=== PATIENT | female | born 1990 | race Caucasian/White ===

== ENCOUNTER 2023-06-22 21:06 | Outpatient (REF) | payer OTHER, SELFPAY ==
[2023-06-25 17:08] LABS: Age Gdln ACOG Testing Note (.); HPV Aptima Negative (Negative); IGP, Aptima HPV, rfx 16/18,45 Note (.)
== END 2023-06-22 21:07 | disposition home or self-care (01) ==
LOC: LAB 21:06
PROVIDERS: Visit Provider Obstetrics & Gynecology
DX: Z01.419 Encounter for gynecological examination (general) (routine) without abnormal findings (principal)
CPT/HCPCS: 87624; G0145

== ENCOUNTER 2023-08-24 10:52 | Outpatient (OUT) | payer OTHER, SELFPAY ==
--- OUTSIDE RECORDS SUMMARY | 2023-08-24 11:14 | XMS_ITS | CCD ---
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 By: #### L IPID, CMP, CHC CBC, TSH3 #### [address] ALP [Catalytic activity/Vol] 36 U/L Normal 32-92 [facility] Comment on above: Performed By: #### L IPID, CMP, CHC CBC, TSH3 #### [facility] [address] AST [Catalytic activity/Vol] 22 U/L Normal 10-42 [facility] Comment on above: Performed By: #### L IPID, CMP, CHC CBC, TSH3 #### [facility] [address] Bilirubin [Mass/Vol] 0.3 mg/dL Normal 0.3-1.2 [facility] Comment on above: Performed By: #### L IPID, CMP, CHC CBC, TSH3 #### [address] Calcium [Mass/Vol] 9.4 mg/dL Normal 8.2-10.2 [facility] Comment on above: Performed By: #### L IPID, CMP, CHC CBC, TSH3 #### [address] Chloride [Moles/Vol] 103 mmol/L Normal 95-114 [facility] Comment on above: Performed By: #### L IPID, CMP, CHC CBC, TSH3 #### [address] CO2 [Moles/Vol] 23.0 mmol/L Normal 22.0-30.0 [facility] Comment on above: Performed By: #### L IPID, CMP, CHC CBC, TSH3 #### [facility] [address] [place] [address] [place] Creatinine [Mass/Vol] 0.61 mg/dL Normal 0.44-1.03 [facility] Comment on above: Performed By: #### L IPID, CMP, CHC CBC, TSH3 #### [place] [address] [place] Globulin (S) [Mass/Vol] 2.7 g/dL Normal [facility] Comment on above: Performed By: #### L IPID, CMP, CHC CBC, TSH3 #### [place] [address] [place] Glucose [Mass/Vol] 108 mg/dL High 70-100 [facility] Comment on above: Result Comment: Gore om Glucose Reference Range is dependent on time and content of last meal. Glucose of more than 200 mg/dL in a nonstressed, ambulatory subject supports the diagnosis of Diabetes Mellitus. ADA recommended reference range Performed By: #### L IPID, CMP, CHC CBC, TSH3 #### [facility] [address] ADA recommended refe rence range Random Glucose Reference Range is dependent on time and content of last meal. Glucose of more than 200 mg/dL in a nonstressed, ambulatory subject supports the diagnosis of Diabetes Mellitus. Potassium [Moles/Vol] 4.1 mmol/L Normal 3.5-5.1 [facility] Comment on above: Performed By: #### L IPID, CMP, CHC CBC, TSH3 #### [facility] [address] Protein [Mass/Vol] 6.9 g/dL Normal 6.1-7.9 [facility] Comment on above: Performed By: #### L IPID, CMP, CHC CBC, TSH3 #### [facility] [address] Sodium [Moles/Vol] 136 mmol/L Normal 136-146 [facility] Comment on above: Performed By: #### L IPID, CMP, CHC CBC, TSH3 #### [facility] [address] [place] [address] [place] Urea nitrogen [Mass/Vol] 12 mg/dL Normal 9-23 [facility] Comment on above: Performed By: #### L IPID, CMP, CHC CBC, TSH3 #### [facility] [address] Estimated glomerular filtrat ion rate (GFR) non- AmericanOrdered By: Danis Tubbs on 01-05-2022 GFR/1.73 sq M.predicted among non-blacks MDRD (S/P/Bld) [Vol rate/Area] > 60 mL/Min [facility] Lipid PanelOrdered By: Dansi Tubbs on 01-05-2022 Cholesterol [Mass/Vol] 210 mg/dL High 140-200 [facility] Comment on above: Result Comment: Chol less than 200 mg/dl low risk Chol 201-239 mg/dl borderline risk Chol 240 mg/dl and greater high risk Performed By: #### L IPID, CMP, CHC CBC, TSH3 #### [facility] [address] Chol less than 200 m g/dl low risk Chol 201-239 mg/dl borderline risk Chol 240 mg/dl and greater high risk Cholesterol in HDL [Mass/Vol] 37 mg/dL Normal 35-85 [facility] Comment on above: Result Comment: HDL CHOL ATP-III CLASSIFICATION Cardiovascular Risk HDL > or equal to 60 mg/dL LOW HDL < 40 mg/dL HIGH Performed By: #### L IPID, CMP, CHC CBC, TSH3 #### [facility] [address] HDL CHOL ATP-III CLA SSIFICATION Cardiovascular Risk HDL > or equal to 60 mg/dL LOW HDL < 40 mg/dL HIGH Cholesterol.total/Cho lesterol in HDL [Mass ratio] 5.7 {ratio} Normal <5.0 [facility] Comment on above: Performed By: #### L IPID, CMP, CHC CBC, TSH3 #### [facility] [address] Lipid Panelon 01-05-2022 LDL Cholesterol,Calculate d 140 mg/dL High 0-100 [facility] Comment on above: Result Comment: LDL ATP III CLASSIFICATION LDL less than 100 mg/dL Optimal LDL 100-129 mg/dL Near or above optimal LDL 130-159 mg/dL Borderline high LDL 160-189 mg/dL High LDL greater than 189 mg/dL Very high Performed By: #### L IPID, CMP, CHC CBC, TSH3 #### [facility] [address] Triglyceride w/Reflex 165 mg/dL High 35-149 [facility] Comment on above: Result Comment: TRIG ATP III CLASSIFICATION TRIG less than 150 mg/dL Normal TRIG 150-199 mg/dL Borderline high TRIG 200-500 mg/dL High TRIG greater than 500 mg/dL Very high Standard traceable to the Center for Disease Conrtrol and Prevention (CDC) test method. Performed By: #### L IPID, CMP, CHC CBC, TSH3 #### [facility] [address] VLDL CHOLESTEROL 33 mg/dL Normal [facility] Comment on above: Performed By: #### L IPID, CMP, CHC CBC, TSH3 #### [facility] [address] MCHC Auto (RBC) [Mass/Vol]Or dered By: Danis Tubbs on 01-05-2022 MCHC (RBC) [Mass/Vol] 34.0 g/dL 32.0-35.0 [facility] No Panel InformationOrdered By: Danis Tubbs on 01-05-2022 Estimated GFR () > 60 mL/Min [facility] Comment on above: GFR estimated refere nce range: According to KDOQI guidelines, <60 ml/min/1.73m2 is sufficient to diagnose a patient with chronic kidney disease. Pharmacy Creatinine Clearance (Chem N/A [facility] Serum or plasma alanine woodruff otransferase measurement without P-5'-P (enzymatic activiOrdered By: Danis Tubbs on 01-05-2022 ALT No additional P-5'-P [Catalytic activity/Vol] 32 U/L 10-60 [facility] Thyroid Stimulating HormoneO rdered By: Danis Tubbs on 01-05-2022 TSH Qn 3.27 m[IU]/L Normal 0.45-5.33 [facility] Comment on above: Result Comment: PERF ORMED BY: [place] [address] PATHOLOGIST [employer] KARLOS WALKER M.D. Performed By: #### L IPID, CMP, CHC CBC, TSH3 #### [facility] [address] Triglyceride [Mass/volume] i n Serum or PlasmaOrdered By: Danis Tubbs on 01-05-2022 Triglyceride [Mass/Vol] 165 mg/dL 35-149 [facility] Comment on above: TRIG ATP III CLASSIF ICATION TRIG less than 150 mg/dL Normal TRIG 150-199 mg/dL Borderline high TRIG 200-500 mg/dL High TRIG greater than 500 mg/dL Very high Standard traceable to the Center for Disease Conrtrol and Prevention (CDC) test method. 25(OH)D3 [facility] 25-hydroxyvitamin D3 [Mass/Vol] 16.7 ng/mL Low 31.0-80.0 [facility] Comment on above: Order Comment: Speci men Type: BLOOD SPECIMEN Ordering Facility: [facility] Address: [address] [place] [address] Result Comment: Clas sification of 25 [place] Vitamin D status: Deficiency/Insufficiency: < or = 30 ng/ml. Sufficiency/Optimal Levels: 31-80 ng/mL Toxicity: > 100 ng/mL. Test performed by chemiluminescent immunoassay. Performed By: #### 1 989-3 #### [facility] CLIA [id number] [address] [place], [place] [address] STATES OF [facility] CBC W Auto Differential pane l (Bld)on 12-01-2021 Basophils (Bld) [#/Vol] 0.07 10*3/uL Normal <0.11 [facility] Comment on above: Order Comment: Speci men Type: BLOOD SPECIMEN Ordering Facility: [facility] Address: [address] [place] [address] Performed By: #### 5 7021-8 #### [facility] CLIA [id number] [place] Basophils/100 WBC (Bld) 1.3 % Normal [facility] Comment on above: Order Comment: Speci men Type: BLOOD SPECIMEN Ordering Facility: [facility] Address: [address] [place] [address] Performed By: #### 5 7021-8 #### [facility] CLIA [id number] [address] [place] Differential cell count method Nom (Bld) Auto Normal [facility] Comment on above: Order Comment: Speci men Type: BLOOD SPECIMEN Ordering Facility: [facility] Address: [address] [address] Performed By: #### 5 7021-8 #### [facility] [place] [id number] [address] [place] [address] [place] Eosinophils (Bld) [#/Vol] 0.10 10*3/uL Normal <0.46 [facility] Comment on above: Order Comment: Speci men Type: BLOOD SPECIMEN Ordering Facility: [facility] Address: [address] [place] [address] Performed By: #### 5 7021-8 #### [facility] [place] [id number] [address] [place] [address] [place] Eosinophils/100 WBC (Bld) 1.9 % Normal [facility] Comment on above: Order Comment: Speci men Type: BLOOD SPECIMEN Ordering Facility: [facility] Address: [address] [place] [address] Performed By: #### 5 7021-8 #### [facility] IA [id number] [address] [place] [address] [place] Erythrocyte distribution width (RBC) [Ratio] 12.3 % Normal 11.5-15.0 [facility] Comment on above: Order Comment: Speci men Type: BLOOD SPECIMEN Ordering Facility: [facility] Address: [address] [place] [address] Performed By: #### 5 7021-8 #### [facility] [place] [id number] [place] Hematocrit (Bld) [Volume fraction] 44.0 % Normal 36.0-46.0 [facility] Comment on above: Order Comment: Speci men Type: BLOOD SPECIMEN Ordering Facility: [facility] Address: [address] [place], [place] [phone] Performed By: #### 5 7021-8 #### [facility] IA [id number] [place] [address] [place] Hemoglobin (Bld) [Mass/Vol] 14.3 g/dL Normal 11.5-15.5 [facility] Comment on above: Order Comment: Speci men Type: BLOOD SPECIMEN Ordering Facility: [facility] Address: [address] [place] [address] Performed By: #### 5 7021-8 #### [facility] CLIA [id number] [address] [place] [address] [place] IMMATURE GRAN % 0.6 % Normal [facility] Comment on above: Order Comment: Speci men Type: BLOOD SPECIMEN Ordering Facility: [facility] Address: [address] [place] [address] Performed By: #### 5 7021-8 #### [facility] IA [id number] [place] IMMATURE GRAN ABS 0.03 k/uL Normal <0.10 [facility] Comment on above: Order Comment: Speci men Type: BLOOD SPECIMEN Ordering Facility: [facility] Address: [address] [place] [address] Performed By: #### 5 7021-8 #### [facility] IA [id number] [address] [place] [address] [place] Lymphocytes (Bld) [#/Vol] 2.30 10*3/uL Normal 1.00-4.00 [facility] Comment on above: Order Comment: Speci men Type: BLOOD SPECIMEN Ordering Facility: [facility] Address: [address] [place] [address] Performed By: #### 5 7021-8 #### [facility] IA [id number] [place] Lymphocytes/100 WBC (Bld) 43.3 % Normal [facility] Comment on above: Order Comment: Speci men Type: BLOOD SPECIMEN Ordering Facility: [facility] Address: [address] [place] [address] Performed By: #### 5 7021-8 #### [facility] IA [id number] [place] [address] [place] MCH (RBC) [Entitic mass] 29.9 pg Normal 26.0-34.0 [facility] Comment on above: Order Comment: Speci men Type: BLOOD SPECIMEN Ordering Facility: [facility] Address: [address] [place] [address] Performed By: #### 5 7021-8 #### [facility] IA [id number] [address] [place] [address] [place] MCHC (RBC) [Mass/Vol] 32.5 g/dL Normal 30.5-36.0 [facility] Comment on above: Order Comment: Speci men Type: BLOOD SPECIMEN Ordering Facility: [facility] Address: [address] [place] [address] Performed By: #### 5 7021-8 #### [facility] IA [id number] [address] [place] [address] [place] MCV (RBC) [Entitic vol] 91.9 fL Normal 80.0-100.0 [facility] Comment on above: Order Comment: Speci men Type: BLOOD SPECIMEN Ordering Facility: [facility] Address: [address] [place] [address] Performed By: #### 5 7021-8 #### [facility] IA [id number] [address] [place] [address] [place] Monocytes (Bld) [#/Vol] 0.29 10*3/uL Normal <0.87 [facility] Comment on above: Order Comment: Speci men Type: BLOOD SPECIMEN Ordering Facility: [facility] Address: [address] [place] [address] Performed By: #### 5 7021-8 #### [facility] IA [id number] [address] [place] [address] [place] Monocytes/100 WBC (Bld) 5.5 % Normal [facility] Comment on above: Order Comment: Speci men Type: BLOOD SPECIMEN Ordering Facility: [facility] Address: [address] Performed By: #### 5 7021-8 #### [facility] IA [id number] [address] [place] [address] [place] Neutrophils (Bld) [#/Vol] 2.52 10*3/uL Normal 1.45-7.50 [facility] Comment on above: Order Comment: Speci men Type: BLOOD SPECIMEN Ordering Facility: [facility] Address: [address] [place], [place] [address] Performed By: #### 5 7021-8 #### [facility] IA [id number] [address] [place] [address] [place] Neutrophils/100 WBC (Bld) 47.4 % Normal [facility] Comment on above: Order Comment: Speci men Type: BLOOD SPECIMEN Ordering Facility: [facility] Address: [address] [place], [place] [address] Performed By: #### 5 7021-8 #### [facility] IA [id number] [address] [place] [address] [place] Nucleated RBC (Bld) [#/Vol] 10*3/uL Normal <0.01 [facility] Comment on above: Order Comment: Speci men Type: BLOOD SPECIMEN Ordering Facility: [facility] Address: [address] [place], [place] [phone] Performed By: #### 5 7021-8 #### [facility] IA [id number] [address] [place] [address] [place] Nucleated RBC/100 WBC (Bld) [Ratio] 0.0 /100 WBC Normal [facility] Comment on above: Order Comment: Speci men Type: BLOOD SPECIMEN Ordering Facility: [facility] Address: [address] [place], [place] [address] Performed By: #### 5 7021-8 #### [facility] IA [id number] [address] [place] [address] [place] Platelet mean volume (Bld) [Entitic vol] 11.2 fL Normal 9.0-12.7 [facility] Comment on above: Order Comment: Speci men Type: BLOOD SPECIMEN Ordering Facility: [facility] Address: [address] [place], [place] [address] Performed By: #### 5 7021-8 #### [facility] CLIA [id number] [address] [place] [address] [place] Platelets (Bld) [#/Vol] 168 10*3/uL Normal 150-400 [facility] Comment on above: Order Comment: Speci men Type: BLOOD SPECIMEN Ordering Facility: [facility] Address: [address] [place], [place] [phone] Result Comment: Resu lts checked and verified. No clot detected Performed By: #### 5 7021-8 #### [facility] CLIA [id number] [address] [place] [address] [place] RBC (Bld) [#/Vol] 4.79 10*6/uL Normal 3.90-5.20 [facility] Comment on above: Order Comment: Speci men Type: BLOOD SPECIMEN Ordering Facility: [facility] Address: [address] [place], [place] [address] Performed By: #### 5 7021-8 #### [facility] IA [id number] [address] [place] [address] [place] WBC (Bld) [#/Vol] 5.31 10*3/uL Normal 3.70-11.00 [facility] Comment on above: Order Comment: Speci men Type: BLOOD SPECIMEN Ordering Facility: [facility] Address: [address] [place], [place] [address] Performed By: #### 5 7021-8 #### [facility] CLIA [id number] [address] [place] [address] [place] [facility] [place] Comprehensive metabolic 2000 panelon 12-01-2021 Albumin [Mass/Vol] 4.5 g/dL Normal 3.9-4.9 [facility] Comment on above: Order Comment: Speci men Type: BLOOD SPECIMEN Ordering Facility: [facility] Address: [address] Performed By: #### 2 4323-8, 3016-3, 19592-3, 84799-7 #### [facility] CLIA [id number] [address] [place] [address] [place] ALP [Catalytic activity/Vol] 46 U/L Normal 34-123 [facility] Comment on above: Order Comment: Speci men Type: BLOOD SPECIMEN Ordering Facility: [facility] Address: [address] [place], [place] [address] Performed By: #### 2 4323-8, 3016-3, 01505-8, 02358-3 #### [facility] CLIA [id number] [address] [place] [address] [place] ALT [Catalytic activity/Vol] 21 U/L Normal 7-38 [facility] Comment on above: Order Comment: Speci men Type: BLOOD SPECIMEN Ordering Facility: [facility] Address: [address] [place], [place] [address] Performed By: #### 2 4323-8, 3016-3, 80905-9, 99675-3 #### [facility] CLIA [id number] [address] [place], [place] [address] [place] [address] [place] Anion gap [Moles/Vol] 10 mmol/L Normal 9-18 [facility] Comment on above: Order Comment: Speci men Type: BLOOD SPECIMEN Ordering Facility: [facility] Address: [address] [place], [place] [address] Performed By: #### 2 4323-8, 3016-3, 52697-1, 09798-7 #### [facility] CLIA [id number] [address] [place] [address] [place] AST [Catalytic activity/Vol] 18 U/L Normal 13-35 [facility] Comment on above: Order Comment: Speci men Type: BLOOD SPECIMEN Ordering Facility: [facility] Address: [address] [place], [place] [phone] Performed By: #### 2 4323-8, 3016-3, 17622-0, 37988-1 #### [facility] CLIA [id number] [address] [place] [address] [place] Bilirubin [Mass/Vol] 0.3 mg/dL Normal 0.2-1.3 [facility] Comment on above: Order Comment: Speci men Type: BLOOD SPECIMEN Ordering Facility: [facility] Address: [address] [place], [place] [address] Performed By: #### 2 4323-8, 3016-3, 67773-2, 57207-5 #### [facility] CLIA [id number] [address] [place] [address] [place] Calcium [Mass/Vol] 9.2 mg/dL Normal 8.5-10.2 [facility] Comment on above: Order Comment: Speci men Type: BLOOD SPECIMEN Ordering Facility: [facility] Address: [address] [place] [address] Performed By: #### 2 4323-8, 3016-3, 06941-5, 67518-8 #### [facility] CLIA [id number] [address] [place] [address] [place] Chloride [Moles/Vol] 104 mmol/L Normal 97-105 [facility] Comment on above: Order Comment: Speci men Type: BLOOD SPECIMEN Ordering Facility: [facility] Address: [address] [place], [place] [address] Performed By: #### 2 4323-8, 3016-3, 44446-7, 58719-3 #### [facility] CLIA [id number] [address] [place] [address] [place] CO2 [Moles/Vol] 23 mmol/L Normal 22-30 [facility] ital Comment on above: Order Comment: Speci men Type: BLOOD SPECIMEN Ordering Facility: [facility] Address: [address] [place], [place] [address] Performed By: #### 2 4323-8, 3016-3, 53788-6, 86301-1 #### [facility] CLIA [id number] [address] [place] [address] [place] Creatinine [Mass/Vol] 0.57 mg/dL Low 0.58-0.96 [facility] Comment on above: Order Comment: Rangel zamora Type: BLOOD SPECIMEN Ordering Facility: [facility] Address: [address] [phone] Performed By: #### 2 4323-8, 3016-3, 17936-6, 39436-7 #### [facility] CLIA [id number] [address] [place] [address] [place] ESTIMATED GLOMERULAR FILTRATION RATE 124 mL/min/1.73m??? Normal >=60 [facility] Comment on above: Order Comment: Rangel zamora Type: BLOOD SPECIMEN Ordering Facility: [facility] Address: [address] [place] [address] Result Comment: Aleksandra mated Glomerular Filtration Rate (eGFR) is calculated using the 2020 CKD-EPI creatinine equation. This equation utilizes serum creatinine, sex, and age as parameters. The creatinine assay has traceable calibration to isotope dilution-mass spectrometry. Refer to KDIGO guidelines for clinical interpretation. In patients with unstable renal function, e.g. those with acute kidney injury, the eGFR may not accurately reflect actual GFR. Performed By: #### 2 4323-8, 3016-3, 11616-3, 62610-2 #### [facility] CLIA [id number] [facility] [place] [address] [place] Glucose [Mass/Vol] 112 mg/dL High 74-99 [facility] Comment on above: Order Comment: Rangel zamora Type: BLOOD SPECIMEN Ordering Facility: [facility] Address: [address] [id number] Result Comment: The [place] [employer] (ADA) provides guidance for cutoff values for fasting glucose and random glucose. The ADA defines fasting as no caloric intake for at least 8 hours. Fasting plasma glucose results between 100 to 125 mg/dL indicate increased risk for diabetes (prediabetes). Fasting plasma glucose results greater than or equal to 126 mg/dL meet the criteria for diagnosis of diabetes. In the absence of unequivocal hyperglycemia, results should be confirmed by repeat testing. In a patient with classic symptoms of hyperglycemia or hyperglycemic crisis, random plasma glucose results greater than or equal to 200 mg/dL meet the criteria for diagnosis of diabetes. Reference: Standards of Medical Care in Diabetes 2016, [place] [employer]. Diabetes Care. 2016.39(Suppl 1). Performed By: #### 2 4323-8, 3016-3, 01335-2, 99502-8 #### [facility] CLIA [id number] [address] [place] [address] [place] Potassium [Moles/Vol] 4.5 mmol/L Normal 3.7-5.1 [facility] Comment on above: Order Comment: Rangel zamora Type: BLOOD SPECIMEN Ordering Facility: [facility] Address: [address] [place] [address] Performed By: #### 2 4323-8, 6-3, 92871-4, 10476-7 #### [facility] CLIA [id number] [address] [place] [address] [place] Protein [Mass/Vol] 7.4 g/dL Normal 6.3-8.0 [facility] Comment on above: Order Comment: Rangel zamora Type: BLOOD SPECIMEN Ordering Facility: [facility] Address: [address] [place] [address] Performed By: #### 2 4323-8, 3016-3, 55326-5, 04021-7 #### [facility] CLIA [id number] [address] [place] [address] [place] Sodium [Moles/Vol] 137 mmol/L Normal 136-144 [facility] Comment on above: Order Comment: Rangel zamora Type: BLOOD SPECIMEN Ordering Facility: [facility] Address: [address] [place] [address] Performed By: #### 2 4323-8, 3016-3, 90892-7, 55071-2 #### [facility] CLIA [id number] [address] [place] [address] [place] Urea nitrogen [Mass/Vol] 12 mg/dL Normal 7-21 [facility] Comment on above: Order Comment: Speci men Type: BLOOD SPECIMEN Ordering Facility: [facility] Address: [address] [place] [address] Performed By: #### 2 4323-8, 3016-3, 59876-5, 15270-2 #### [facility] CLIA [id number] [address] [place] [address] [place] Ferritin SerPl-mCncon 2021 Ferritin [Mass/Vol] 177.6 ng/mL Normal 14.7-205.1 [facility] Comment on above: Order Comment: Rangel [facility] Type: BLOOD SPECIMEN Ordering Facility: [facility] Address: [address] [place] [address] Performed By: #### 2 4323-8, 3016-3, 04501-5, 57830-7 #### [facility] CLIA [id number] [address] [place] [address] [place] Folate SerPl-mCncon 12-02-19 Folate [Mass/Vol] 9.3 ng/mL Normal >4.7 [facility] Comment on above: Order Comment: Speci men Type: BLOOD SPECIMEN Ordering Facility: [facility] Address: [address] [place] [address] Performed By: #### 2 4323-8, 3016-3, 70374-3, 98353-9 #### [facility] CLIA [id number] [address] [place] [address] [place] HbA1c (Bld)on 12-01-2021 Average glucose Estimated from glycated hemoglobin (Bld) [Mass/Vol] 108 mg/dL Normal [facility] Comment on above: Order Comment: Speci men Type: BLOOD SPECIMEN Ordering Facility: [facility] Address: [address] [place] [address] Result Comment: eAG: (Estimated average glucose) is a calculated value from HgbA1c and is access service representative of the average blood glucose level in the last 2-3 month period. Performed By: #### 2 4323-8, 3016-3, 85869-0, 77420-3 #### [facility] CLIA [id number] [address] [place], [place] [id number] [place] [address] [place] HbA1c (Bld) [Mass fraction] 5.4 % Normal 4.3-5.6 [facility] Comment on above: Order Comment: Rangel zamora Type: BLOOD SPECIMEN Ordering Facility: [facility] Address: [address] [place] [address] Result Comment: Amer ican Diabetes Association guidelines indicate that patients with HgbA1c in the range 5.7-6.4% are at increased risk for development of diabetes, and intervention by lifestyle modification may be beneficial. HgbA1c greater or equal to 6.5% is considered diagnostic of diabetes. Performed By: #### 2 4323-8, 3016-3, 46588-1, 21161-2 #### [facility] CLIA [id number] [address] [place], [place] [id number] [place] [address] [place] Iron and Iron binding capaci [facility] 12-01-2021 Iron [Mass/Vol] 69 ug/dL Normal 41-186 [facility] Comment on above: Order Comment: Rangel zamora Type: BLOOD SPECIMEN Ordering Facility: [facility] Address: [address] [place] [address] Performed By: #### 2 4323-8, 3016-3, 66371-8, 27315-3 #### [facility] CLIA [id number] [address] [place], [place] [id number] [place] [address] [place] Iron binding capacity [Mass/Vol] 296 ug/dL Normal 232-386 [facility] Comment on above: Order Comment: Rangel zamora Type: BLOOD SPECIMEN Ordering Facility: [facility] Address: [address] [place] [address] Performed By: #### 2 4323-8, 3016-3, 75488-2, 90067-5 #### [facility] CLIA [id number] [address] [place] [address] [employer] [facility] Iron/TIBC [Molar ratio] 23.3 % Normal 15.0-57.0 [facility] Comment on above: Order Comment: Speci men Type: BLOOD SPECIMEN Ordering Facility: [facility] Address: [address] [place] [address] Performed By: #### 2 4323-8, 3016-3, 52750-5, 00852-7 #### [facility] CLIA [id number] [address] [facility] [address] [employer] [facility] Lipid 1996 panelon 2 Cholesterol [Mass/Vol] 229 mg/dL High <200 [facility] Comment on above: Order Comment: Speci men Type: BLOOD SPECIMEN Ordering Facility: [facility] Address: [address] [place] [address] Result Comment: <200 mg/dL, Desirable 200-239 mg/dL, Borderline high >239 mg/dL, High Performed By: #### 2 4323-8, 3016-3, 67844-7, 25240-6 #### [facility] CLIA [id number] [address] [place] [address] [facility] Cholesterol in HDL [Mass/Vol] 39 mg/dL Low >39 [facility] Comment on above: Order Comment: Speci men Type: BLOOD SPECIMEN Ordering Facility: [facility] Address: [address] [place] [address] Result Comment: 40-5 9 mg/dL, Acceptable >59 mg/dL, High: Negative risk factor for coronary heart disease <40 mg/dL, Low: Positive risk factor for coronary heart disease Performed By: #### 2 4323-8, 3016-3, 56429-2, 09789-8 #### [facility] CLIA [id number] [address] [place], [place] [id number] [place] [address] Cholesterol in LDL [Mass/Vol] 155 mg/dL High <100 [facility] Comment on above: Order Comment: Speci men Type: BLOOD SPECIMEN Ordering Facility: [facility] Address: [address] [place] [address] Result Comment: <100 mg/dL, Optimal 100-129 mg/dL, Near optimal/above optimal 130-159 mg/dL, Borderline high 160-189 mg/dL, High >189 mg/dL, Very high Secondary prevention optimal LDL Cholesterol levels are recommended to be < 70 mg/dL Performed By: #### 2 4323-8, 3016-3, 39014-9, 76729-2 #### [facility] CLIA [id number] [address] [facility] [address] [place] Cholesterol in LDL/Cholesterol in HDL [Mass ratio] 3.97 {ratio} High <2.54 [facility] Comment on above: Order Comment: Specgloria men Type: BLOOD SPECIMEN Ordering Facility: [facility] Address: [address] [place] [address] Result Comment: Refe rence: 1. National Cholesterol Education Program ATP III Guideline At-A-Glance Quick Desk Reference: National Heart, Lung, and Blood [place]. National Institutes of Health. 2001: NIH Publication No. 01-3305. 2. An International Atherosclerosis Society position paper: global recommendations for the management of dyslipidemia: executive summary, Atherosclerosis. 2014: 232(2):410-413. Performed By: #### 2 4323-8, 3016-3, 22907-1, 69562-9 #### [facility] CLIA [id number] [facility] [address] [place] [facility] Cholesterol in VLDL [Mass/Vol] 35 mg/dL High <30 [facility] Comment on above: Order Comment: Rangel zamora Type: BLOOD SPECIMEN Ordering Facility: [facility] Address: [address] [id number] Performed By: #### 2 4323-8, 3016-3, 47985-5, 71253-6 #### [facility] CLIA [id number] [address] [facility] [place] [address] [place] Cholesterol non HDL [Mass/Vol] 190 mg/dL High <130 [facility] Comment on above: Order Comment: Rangel men Type: BLOOD SPECIMEN Ordering Facility: [facility] Address: [address] Result Comment: <130 mg/dL, Optimal 130-159 mg/dL, Near optimal/above optimal 160-189 mg/dL, Borderline high 190-219 mg/dL, High >219 mg/dL, Very high Secondary prevention optimal non HDL Cholesterol levels are recommended to be <100 mg/dL Performed By: #### 2 4323-8, 3016-3, 76415-1, 73487-7 #### [facility] CLIA [id number] [address] [place], [place] [address] [place] [address] [place] Cholesterol.total/Cho lesterol in HDL [Mass ratio] 5.87 {ratio} High <5.10 [facility] Comment on above: Order Comment: Speci men Type: BLOOD SPECIMEN Ordering Facility: [facility] Address: [address] [place], [place] [address] Performed By: #### 2 4323-8, 3016-3, 03633-9, 91502-8 #### [facility] CLIA [id number] [address] FASTING TIME 12 hrs Normal [facility] Comment on above: Order Comment: Speci men Type: BLOOD SPECIMEN Ordering Facility: [facility] Address: [address] [place], [place] [address] Performed By: #### 2 4323-8, 3016-3, 71302-1, 18437-6 #### [facility] CLIA [id number] [address] [place], [place] [address] [place] [address] [place] Triglyceride [Mass/Vol] 173 mg/dL High <150 [facility] Comment on above: Order Comment: Speci men Type: BLOOD SPECIMEN Ordering Facility: [facility] Address: [address] [id number] Result Comment: <150 mg/dL, Normal 150-199 mg/dL, Borderline high 200-499 mg/dL, High >499 mg/dL, Very high Performed By: #### 2 4323-8, 3016-3, 96428-9, 50087-8 #### [facility] CLIA [id number] [address] [place] [address] [place] PTH-Intact SerPl-mCncon - Parathyrin.intact [Mass/Vol] 42 pg/mL Normal 15-65 [facility] Comment on above: Order Comment: Rangel zamora Type: BLOOD SPECIMEN Ordering Facility: [facility] Address: [address] [place], [place] [id number] Performed By: #### 2 731-8 #### [facility] CLIA [id number] [address] [place] [address] [place] [address] [place] TSH SerPl-aCncon 12-01-2021 TSH Qn 3.170 m[IU]/L Normal 0.270-4.200 [facility] Comment on above: Order Comment: Rangel zamora Type: BLOOD SPECIMEN Ordering Facility: [facility] Address: [address] [place] [address] Result Comment: If t he patient is , TSH reference range varies by gestational period: First Trimester (weeks 9-12): 0.180-2.990 mIU/L Second Trimester: 0.110-3.980 mIU/L Third Trimester: 0.480-4.710 mIU/L Franco aCllejas et al. A Practical Approach for the Verifications and Determination of Site- and Trimester-Specific Reference Intervals for Thyroid Function tests in . Thyroid, 2019:29:3:412-420. Varun Blevins, et al. 2017 Guidelines of the [place] Thyroid Association for the Diagnosis and Management of Thyroid Disease during and the . Thyroid, 2017:27:3:315-389. Performed By: #### 2 4323-8, 3016-3, 60776-5, 73039-3 #### [facility] CLIA [id number] [address] [place] [address] [place] VITAMIN B1 (THIAMINE), WHOLE BLOODon 12-01-2021 Thiamine (Bld) [Moles/Vol] 134.6 nmol/L Normal 84.3-213.3 [facility] Comment on above: Order Comment: Rangel zamora Type: BLOOD SPECIMEN Ordering Facility: [facility] Address: [address] [place], [place] [id number] Result Comment: This assay measures the concentration of thiamine diphosphate (TDP), the primary active form of vitamin B1. Approximately 90 percent of vitamin B1 present in whole blood is TDP. Thiamine and thiamine monophosphate, which comprise the remaining 10 percent, are not measured. This test was developed and its performance characteristics determined by [facility] [place] ([facility]). It has not been cleared or approved by the FDA. [facility] is regulated under CLIA as qualified to perform high-complexity testing. This test is used for clinical purposes. It should not be regarded as investigational or for research. Performed By: #### B 1WB #### [facility] CLIA [id number] [address] [place], [place] [address] [place] [address] [place] Vit B12 [facility] 022 Cobalamin (Vitamin B12) [Mass/Vol] 304 pg/mL Normal 232-1,245 [facility] Comment on above: Order Comment: Speci men Type: BLOOD SPECIMEN Ordering Facility: [facility] Address: [address] [place], [place] [id number] Performed By: #### 2 4323-8, 3016-3, 07547-1, 65969-4 #### [facility] CLIA [id number] [address] [facility]. [address] [place] No Panel Informationon 11-28 [facility] US ABD RIGHT UPPER QUADRANTo n 11-28-2021 US ABD RIGHT UPPER QUADRANT * * *Final Report* * * DATE OF EXAM: Nov 28 2021 1:51PM [facility] 1032 - US ABD RIGHT UPPER QUADRANT / PROCEDURE REASON: multiple diagnoses * * * * Physician Interpretation * * * * EXAMINATION: RIGHT UPPER QUADRANT ULTRASOUND CLINICAL HISTORY: Preoperative testing TECHNIQUE: Sonography of the right upper quadrant was performed. Images were obtained and stored in a permanent archive. MQ: URUQ_2 COMPARISON: None. RESULT: Pancreas: Normal sonographic appearance. Portions obscured: Head and tail Liver: Echotexture: Normal, homogeneous. Echogenicity: Increased Surface contour: Smooth Lesions: Limited for solid hepatic mass Biliary: No intrahepatic biliary duct dilation. CBD: 0.4 cm at the hilum. Gallbladder: Normal caliber -Contents: No cholelithiasis -Wall: Normal -Other: No pericholecystic fluid. Right Kidney: No hydronephrosis. Ascites: None. IMPRESSION: Diffuse hepatic steatosis. No biliary ductal dilatation. The gallbladder is unremarkable. Press Offbearer: [facility] Transcribe Date/Time: Nov 28 2021 2:20P Dictated by : CJ QUINTERO MD This examination was interpreted and the report reviewed and electronically signed by: CJ QUINTERO MD on Nov 28 2021 2:21PM EST [id number] [facility] XR CHEST 2V FRONTAL/LATon XR CHEST 2V FRONTAL/LAT * * *Final Report* * * DATE OF EXAM: Nov 28 2021 1:00PM VHX [id number] - XR CHEST 2V FRONTAL/LAT / PROCEDURE REASON: multiple diagnoses * * * * Physician Interpretation * * * * EXAMINATION: CHEST RADIOGRAPH (2 VIEW FRONTAL and LATERAL) CLINICAL HISTORY: Class 3 severe obesity with body mass index (BMI) of 50.0 to 59.9 in adult, unspecified obesity type, unspecified whether serious comorbidity present (HCC) Class 3 severe obesity with body mass index (BMI) of 50.0 to 59.9 in adult, unspecified obesity type, unspecified whether serious comorbidity present (HCC) MQ: XC2_6 EXAM DATE/TIME: 11/28/2021 1:00 PM COMPARISON: No relevant prior studies available. RESULT: Lines, tubes, and devices: None. Lungs and pleura: No consolidation. No lung mass. No pleural effusion. No pneumothorax. Cardiomediastinal silhouette: Normal cardiomediastinal silhouette. Bones and soft tissues: Unremarkable. IMPRESSION: No acute radiographic abnormality. Press Offbearer: [employer] Transcribe Date/Time: Nov 28 2021 1:32P Dictated by : KOMAL VINES MD This examination was interpreted and the report reviewed and electronically signed by: KOMAL VINES MD on Nov 28 2021 1:33PM EST [id number] [facility] ANES POSTPROC EVALon 022 ANES POSTPROC EVAL HNO ID: [id number] Author: Fannie Tanner MD Service: Anesthesiology Author Type: Physician Type: Anesthesia Postprocedure Evaluation Filed: 11/26/2021 3:12 PM Note Text: POST ANESTHESIA EVALUATION NOTE : 1990 Procedure Summary Date: 11/26/21 Room / Location: Procedures Anesthesia Start: 1315 Anesthesia Stop: 1328 Procedure: EGD DIAGNOSTIC Diagnosis: Pre-op exam (Heartburn) Scheduled Providers: Mulugeta Salmon MD; Fannie Tanner MD; Maria Alejandra Callejas APRN.BUSINESS TAXES SPECIALIST Responsible Provider: Fannie Tanner MD Anesthesia Type: MAC ASA Status: 3 Anesthesia Type: MAC Last Vitals Vitals Value Taken Time BP 127/84 11/26/21 1351 Temp 36.1 ?C (97 ?F) 11/26/21 1330 Pulse 76 11/26/21 1350 Resp 15 11/26/21 1350 SpO2 96 % 11/26/21 1354 Vitals shown include unvalidated device data. Post Anesthesia Patient Status Patient Evaluation: PACU. PACU/ICU Patient Condition: stable. Anticipated Disposition: phase 2 then home. Neurological Status: aware and responsive. Pulmonary Status: breathing comfortably on room air Airway Control: returned to baseline unsupported. Cardiovascular Status: stable. Pain Management: clinically adequate - multimodal analgesia pain management approach Postoperative Hydration: acceptable. Intraoperative Events: no significant anesthesia events Recommendation: continue current plan of care. Anesthesia Observations No Documentation SIGNATURE: Fannie Tanner MD PATIENT NAME: Funmilayo Conway DATE: November 26, 2021 TIME: 3:12 PM CSN: [id number] [facility] ANES PRE-OPon 11-26-2021 ANES PRE-OP HNO ID: [id number] Author: Fannie Tanner MD Service: Anesthesiology Author Type: Physician Type: Anesthesia Preprocedure Evaluation Filed: 11/26/2021 12:27 PM Note Text: ANESTHESIOLOGY DAY OF SURGERY NOTE : 1990 Procedure Information Date/Time: 11/26/21 1245 Scheduled providers: Mulugeta Salmon MD; Fannie Tanner MD; Maria Alejandra Callejas APRN.BUSINESS TAXES SPECIALIST Procedure: EGD DIAGNOSTIC Location: Procedures Estimated body mass index is 53.01 kg/m? as calculated from the following: Height as of 11/12/21: 167.6 cm (5' 6 ). Weight as of 11/12/21: 149 kg (328 lb 6.4 oz). Most recent hematocrit and potassium results: No results found for this basename: HCT,HEMATOCRIT,K,POT ASSIUM Relevant Problems -RENAL (+) Fatty liver Other (+) Anxiety and depression (+) Morbidly obese (HCC) I - PHYSICAL EVALUATION AIRWAY Patient intubated: No. Tracheostomy tube not present Mallampati: III. TM distance: >3 FB. Neck ROM: full ROM without neurological symptoms. Mouth opening: adequate. Short neck: no. Thick neck: no DENTAL Dental findings: teeth intact and missing tooth/teeth. Additional exam findings: yes. CARDIOVASCULAR Rhythm: regular Rate: normal PULMONARY Breath sounds clear to auscultation. II - ANESTHESIA PLAN ASA Score: 3 Anesthetic Plan: MAC NPO Status: adequate Monitoring plan: Standard ASA. Postoperative analgesic plan: parenteral or oral opioids and multimodal analgesia. Informed Consent Anesthetic risks, benefits, alternatives, personnel and consent discussed: yes. Patient / Responsible Constitution Party agrees to proceed: yes Patient / Surrogate agrees to blood products: blood products not planned DNR status not reviewed with patient and/or family prior to surgery. Significant changes in the patient condition since the History and Physical, not otherwise documented in primary service progress note: no. Potential Anesthesia issues that may suggest increased risk of complications or contraindication to planned procedure: none. No vitals data found for the desired time range. Outpatient Medications as of 11/26/2021 Medication Sig - FLUoxetine HCl (PROZAC) 40 mg capsule Take 40 mg by mouth once daily. No current facility-administere d medications on file as of 11/26/2021. I have interviewed and examined the patient. I have reviewed the medical record and/or the pre-anesthesia evaluation, pertinent labs, and test results. This contains updated information obtained within 48 hours of Surgery/Procedure. SIGNATURE: Fannie Tanner MD PATIENT NAME: Funmilayo Conway DATE: November 26, 2021 TIME: 12:27 PM CSN: [id number] Normal [facility] EGD DIAGNOSTICon 11-26-2021 [facility] Upper GI endoscopyon 022 Upper GI endoscopy [facility] Gastrointestinal Endoscopy Patient Name: Funmilayo Conway Procedure Date: 11/26/2021 1:06 PM Date of : 1990 Admit Type: Outpatient Age: 31 Room: AV PROCEDURE A Gender: Female Note Status: Finalized Attending MD: Mulugeta Salmon MD Procedure: Upper GI endoscopy Indications: Heartburn Providers: Mulugeta Salmon MD Patient Profile: This is a 31 year old female. Refer to note in patient chart for documentation of history and physical. Patient has symptoms of chronic heartburn. Referring Physician: Mulugeta Salmon MD (Referring MD) Medicines: Monitored Anesthesia Care Complications: No immediate complications. Requesting Provider: Procedure: Pre-Anesthesia Assessment: - Prior to the procedure, a History and Physical was performed, and patient medications and allergies were reviewed. The patient is competent. The risks and benefits of the procedure and the sedation options and risks were discussed with the patient. All questions were answered and informed consent was obtained. Patient identification and proposed procedure were verified by the physician, the nurse and the technical sales director in the pre-procedure area in the endoscopy suite. Mental Status Examination: alert and oriented. Airway Examination: normal oropharyngeal airway and neck mobility. Respiratory Examination: clear to auscultation. CV Examination: normal. Prophylactic Antibiotics: The patient does not require prophylactic antibiotics. Prior Anticoagulants: The patient has taken no previous anticoagulant or antiplatelet agents. ASA Grade Assessment: III - A patient with severe systemic disease. After reviewing the risks and benefits, the patient was deemed in satisfactory condition to undergo the procedure. The anesthesia plan was to use monitored anesthesia care (MAC). Immediately prior to administration of medications, the patient was re-assessed for adequacy to receive sedatives. The heart rate, respiratory rate, oxygen saturations, blood pressure, adequacy of pulmonary ventilation, and response to care were monitored throughout the procedure. The physical status of the patient was re-assessed after the procedure. After obtaining informed consent, the endoscope was passed under direct vision. Throughout the procedure, the patient's blood pressure, pulse, and oxygen saturations were monitored continuously. The Endoscope was introduced through the mouth, and advanced to the second part of duodenum. The upper GI endoscopy was accomplished without difficulty. The patient tolerated the procedure well. Moderate Sedation: MAC anesthesia was administered by the anesthesia team. Total Procedure Duration: 0 hours 2 minutes 59 seconds Findings: The gastroesophageal flap valve was visualized endoscopically and classified as Hill Grade II (fold present, opens with respiration). LA Grade A (one or more mucosal breaks less than 5 mm, not extending between tops of 2 mucosal folds) esophagitis with no bleeding was found 37 to 39 cm from the incisors. The stomach was normal. The examined duodenum was normal. Impression: - Gastroesophageal flap valve classified as Hill Grade II (fold present, opens with respiration). - LA Grade B reflux esophagitis. - Normal stomach. - Normal examined duodenum. - No specimens collected. Recommendation: - Discharge patient to home. - Resume previous diet. - Continue present medications. - Return to Bariatric clinic as previously scheduled. Procedure Code(s): --- Professional --- 61777, Esophagogastroduoden oscopy, flexible, transoral; diagnostic, including collection of specimen(s) by brushing or washing, when performed (separate procedure) Diagnosis Code(s): --- Professional --- K21.0, Gastro-esophageal reflux disease with esophagitis R12, Heartburn CPT copyright 2019 [employer]. All rights reserved. The codes documented in this report are preliminary and upon game trapper review may be revised to meet current compliance requirements. Attending Participation: I personally performed the entire procedure. Scope In: 1:21:30 PM Scope Out: 1:24:29 PM MD Mulugeta Tony MD 11/26/2021 1:27:19 PM This report has been signed electronically by Mulugeta Salmon MD Number of Addenda: 0 Note Initiated On: 11/26/2021 1:06 PM Estimated Blood Loss: Estimated blood loss: none. Normal [facility] HISTORY PHYSICALon 2 HISTORY PHYSICAL HNO ID: [id number] Author: Maria T Lares APRN.OMER Service: ? Author Type: Nurse Practitioner Type: HANDP Filed: 11/12/2021 3:58 PM Note Text: HISTORY AND PHYSICAL EXAMINATION SERVICE DATE: 11/12/2021 SERVICE TIME: 3:26 PM PRIMARY CARE PHYSICIAN: No Pcp This is a virtual visit using [employer] video visit. It required patient-provider interaction for the medical decision making as documented below. REASON FOR VISIT: Funmilayo Conway is a 31 year old female who is scheduled for EGD at the request of Dr. Mulugeta Salmon for consultation. My final recommendation will be communicated back to the requesting physician by way of shared medical record or letter. Subjective The patient has the following: ACTIVE PROBLEM LIST Morbidly Obese (Hcc) Fatty Liver Anxiety and Depression COVID-19 Immunization Status COVID-19 VACCINE (Series Information) Completed 03/20/2021 Outside Immunization: SARS-CoV-2 (COVID-19) Ad26 vaccine 08/24/2020 Outside Immunization: SARS-CoV-2 (COVID-19) Ad26 vaccine 08/03/2020 Outside Immunization: SARS-CoV-2 (COVID-19) Ad26 vaccine CHIEF COMPLAINT: Pre-Op Exam HPI: 31 year old female presents with morbid obesity. Patient is preparing for bariatric surgery and is scheduled for EGD. She did have an EGD at 18 yo looking for Celiac's disease, she states this was negative. She has occasional heartburn usually related to spicy foods. She denies a diagnosis of GERD. She also denies any abdominal pain. REVIEW OF SYSTEMS: General: No weight loss, malaise or fevers. Neurological: No history of TIA's, stroke, CONTRACTS ATTORNEY tumor, impaired sensorium, hemiplegia, paraplegia or quadraplegia. No neurological symptoms or problems. Respiratory: No history of current cough or dyspnea, or pneumonia in the past 6 weeks. No history of respiratory/pulmonar y symptoms or problems. Cardiovascular: No history of HTN requiring medication, no history of angina, CHF, [place], cardiac surgery or stents. Denies rest pain, gangrene or revascularization/am putation for PVD. No history of cardiovascular symptoms or problems. GI: Positive for: liver disease (Fatty liver) Negative for: dysphagia, diverticulitis, GI bleed <30 days, hepatitis, irritable bowel syndrome, inflammatory bowel disease, nausea and vomiting. : No history of dysuria, frequency or incontinence, stones or chronic kidney disease. No difficulty urinating, nocturia > 1 time per night or hematuria. MILITARY SOURCE OPERATIONS SPECIALIST: Negative for abnormal vaginal bleeding, abnormal vaginal discharge. Endocrine: No history of diabetes. Has not taken steroids within the past 30 days. No history of endocrinological symptoms or problems. Hematology: No history of bleeding or clotting disorder. Patient is not taking anti-coagulation or platelet medications. No history of hematological symptoms or problems. Oncology: No history of CA metastasis, chemo within 30 days, or radiotherapy within 90 days. No history of oncological symptoms or problems. Psych: Positive for: anxiety and depression (Stable on Rx, follows with PCP). Musculoskeletal: Negative for joint pain or swelling, back pain or muscle pain. Skin: Negative for lesions, rash and itching. PAST MEDICAL HISTORY Diagnosis Date - Anxiety and depression - Fatty liver PAST SURGICAL HISTORY Procedure Laterality Date - COLONOSCOPY - CYST EXCISION Left 2001 - EGD 2008 - EXTRACTION ERUPTED TOOTH wisdom teeth - RHINOPLASTY Deviated septum - TONSILLECTOMY HX x 2 FAMILY HISTORY Problem Relation Age of Onset - No Known Problems Mother - No Known Problems Father Social History Tobacco Use - Smoking status: Never Smoker - Smokeless tobacco: Never Used Vaping Use - Vaping Use: Never used Substance Use Topics - Alcohol use: Yes Comment: Not weekly - Drug use: Never Prior to Admission medications as of 11/12/21 1536 Medication Sig Last Dose Taking FLUoxetine HCl (PROZAC) 40 mg capsule Take 40 mg by mouth once daily. Taking Yes No medication comments found. ALLERGIES Allergen Reactions - Animal Dander Cough, Itching, Rash, Other: See Comments - Dust Other: See Comments - Mildew Other: See Comments - Mold Cough, Other: See Comments Objective PHYSICAL EXAM: (if completed, exam performed via video enabled technology) General: alert and oriented and morbidly obese. Pertinent negatives noted - not distressed. Skin: normal color, no rash or lesions. HEENT: pupils equal round. Cardiovascular: Patient able to palpate radial pulse, denies skipped beats or pauses.. Respiratory: Breathing unlabored. Chest rise equal. No audible wheezing.. Abdomen: Not examined. Extremities: No deformity noted. Neurological: Normal cognition and gait. PAIN ASSESSMENT: VITALS: Ht 5' 6 [Patient reported[ (1.68m) Wt 328 lb 6.4 oz (149.0kg) LMP 12/20/2020 BMI 53.03 kg/(m2). Diagnostic tests reviewed for today's visit: Lab Value Units Date High Low HB No results with (more content not included)... Normal [facility] COVID Quick Testingon 2021 Result Negative [employer] Other Quick Strepon 10-27-2021 S. pyogenes Org specific cx Ql (Throat) Negative [employer] Other Quick Strep [employer] Other Consent for Procedure/Surger yon 08-05-2021 Consent for Procedure/Surgery [id number] #1.00CD:127 Normal [facility] Ambulatory Visit Summaryon 0 08-04-2021 Ambulatory Visit Summary FUNMILAYO CONWAY :1990 Visit Date:08/04/2021 Ambulatory Visit Instructions Your Care Team Attending Physician - EDY JOYCE, Elmira Infante Primary Care Physician - Carson JOYCE, Khoi Referring Physician - Khoi Byrd MD This Is Your Medications List Contact prescribing physician if questions or concerns fluoxetine (FLUoxetine 40 mg Cap) Procedures Performed section, Deviated nasal septum, Extraction of wisdom tooth, Ganglion cyst of right foot, Tonsillectomy and adenoidectomy. Discharge Vitals Temperature (Temporal Artery) 36.2 ?C Heart Rate (Peripheral) 92 Respiratory Rate 16 Blood Pressure 126/84 Height 165.1 cm Height 165.1 cm Weight 154.8 kg Weight 154.8 kg BMI 56.79 Medications What How Much When Instructions Unchanged fluoxetine (FLUoxetine 40 mg Cap) 1 Capsules By Mouth Every day Contact prescribing physician if questions or concerns Medications and Immunizations Administered Not Given influenza virus vaccine, inactivated, Patient Refuses Allergies Animal Dander (Sneezing) Dust (Sneezing) Mildew (Sneezing) Mold (Sneezing) Problems Ongoing - Any problem that you are currently receiving treatment for. Allergic rhinitis Anxiety BMI 50.0-59.9, adult Depression Historical - Any problem that you are no longer receiving treatment for. Normal [facility] Physician Referralon 022 Physician Referral [id number] #1.00CD:127 Normal [facility] Physician Referral [id number] #1.00CD:127 Normal [facility]-08 SARS-CoV-2 (COVID-19) RNA JONH+probe Ql (Unsp spec) Not detected Normal NOT DETECTED [facility] Comment on above: Result Comment: This test is not yet approved or cleared by the [place] FDA. When there are no FDA-approved or cleared tests available, and other criteria are met, FDA can make tests available under an emergency access mechanism called an Emergency Use Authorization (EUA). The EUA for this test is supported by the President [place] of Health and Human Service's (HHS's) declaration that circumstances exist to justify the emergency use of in vitro diagnostics for the detection and/or diagnosis of the virus that causes COVID-19. This EUA will remain in effect (meaning this test can be used) for the duration of the COVID-19 declaration justifying emergency of IVDs, unless it is terminated or revoked by FDA (after which the test may no longer be used). When diagnostic testing is negative, the possibility of a false negative should be considered in the context of a patient's recent exposures and the presence of clinical signs and symptoms consistent with SARS-CoV-2. Performed By: #### [facility] #### [facility] [address] [place] [address] Dr. Kerri Roberto Covid-19 PCR ([facility])on SARS-CoV-2 (COVID-19) RNA JONH+probe Ql (Unsp spec) Not detected Normal NOT DETECTED [facility] Comment on above: Result Comment: This test is not yet approved or cleared by the [place] FDA. When there are no FDA-approved or cleared tests available, and other criteria are met, FDA can make tests available under an emergency access mechanism called an Emergency Use Authorization (EUA). The EUA for this test is supported by the [place] of Health and Human Service's (HHS's) declaration that circumstances exist to justify the emergency use of in vitro diagnostics for the detection and/or diagnosis of the virus that causes COVID-19. This EUA will remain in effect (meaning this test can be used) for the duration of the COVID-19 declaration justifying emergency of IVDs, unless it is terminated or revoked by FDA (after which the test may no longer be used). When diagnostic testing is negative, the possibility of a false negative should be considered in the context of a patient's recent exposures and the presence of clinical signs and symptoms consistent with SARS-CoV-2. Performed By: #### C V[facility] #### [facility] [address] [place] [address] Dr. Kerri Roberto Coding Summary.on 12-26-2020 Coding Summary. [id number] Gh0bWw+PGhlYWQ+PE1FV UXzD26toKXynB5CF9pJJ U4YWUGPSYEUWX2QCE4dr PW6QQumN8FmfsXm DedwbYDgOD91PEu2SDN6 cAqyLLgdfE3fbHMwE4e8 WoRnZD33pD00WCauLWBd DrJ9FeDiiesfwUEs Q4xiMoMxbFTzHrz+PHRh YmxlIHdpZHRoPScxMDAl UsRxrDrfHI4sIz9kFLGa LWNvbGxhcHNlOiBj u2ldWLVyUKttGC1ooJai Q5CazIF7NHQmx0x5Mh34 dHI+XXJbEVQ2mOwtNYrw r955HpNzp7gbIWJ7 jNCmQFqiRQC8B54pb6V2 BLYdZOVfMJX5xXQ5sV0t yFopprzoC6MzkWBnNdQ0 INE1aBWkmX7wcXvt iekrvE1kIbx+D37GVU0R FUYNUT4NGsj9F5DtCvwz dHI+IK90UPEvUE00vSSa yLKkp1wzmRm2PsDx BIYvZIV3tJiwYPlem0Va EVSrS10wnHNnr7I4MLQe cXpobBLaUxLwyCC6oI1l EPewuohpf0pwhipi Csgpa0wjno23kZ16T69j OMibELNvRIM3BSEyLNKt oAmnft7maG6iXz2+IDxj r1slp5bklAk9XuZz BENulzHajSxvZJI2v1Hq Py69B7AnoJksj0GaQee1 jb98dZTfo1U2hXA9ZOyu GNPcrZ3jBWuuLoC1 VRAyRaFejE80fOAsSVjo Lc0edDrjjZnaOC6bEUHf zyutRVTiiG9eOVJxmHLl bMpmOQ6gJOChvkdg r681AtPqBUS6VEEhyEAl G3OxqU0lVyKuUPRbCIPs K7SxhDIoUQvsP214VIpc PpA0LLJsmwGoB7Bc AYOpxGvqIhP1s1S2Ia5O v6LddagnOZU0KKilEJB2 SrEjZiYxLnE4K2YsTol5 KPKrxXaaXQ8dP0Fl HSOkeflwyfpqoYZ3CPWh ORJtjF24vQTzQVbyPc4v c9K9v157MQMcBMQieV68 Zl8kaDreKGRfzGCT qN1ejwyua1gwxngzMjBm HWYoZJj2YFf3YIKxhJxr MwBjPOZ2ZmG9OHF3tNMs nU4gwTnhyvyfhX6o Oyc+K32gxJ3pMCH2TZB5 gscxGACixyGfLX74JG54 F2XkZbhaaFHsdJE+PGRp ohIfqHvvOD4gHfGd t1cda3PlISpdN4MrETUa PIxfZpm6ERInIUP0tSS6 sB6oMGRvVMbhh3D5wTX3 T2OxguOegi2kb7kl VKAjIShhA52seZXmo2Z4 OGCadAE9LQSzbVyaEoDh cY16Eqs+WECjzIteb8Wj Lnwmr5ecx7ynbTg0 IjMwJSIgdmFsaWduPSJ0 g0WaIj42P76eIQyaGNGj TRCiHKByOPIusPmbcf5v iH1cYe2+PGNvbCB3 bPA7wU0zAAJrDrB8GThe Y055YbYtaTHlKlruf4cv p1fsbDw6CrKwMGUbgfVc nVncSTN3y5ZrYr41 E80jXFiaDCPyZDTzFZBu VTIjxOvabi9khN8cKu4+ PL5ry7lfql26pC68bYB+ EWIfBBC0rCjhRSrp ORXrcU6wATjwYyE9MXUk OtXgcQ43tHSqYCniFq8n pVourVcyWQ9jEYGkuyfa a576RvIdt1ufFWUu lXSnXNmaRKG2R34vj4H1 JEIiFEEaKCO8gOA5aU4h bGlnbjogbGVmdDsgdmVy eUirWHcfACbwX318 IHRvcDsnPlBhdGllbnQg DkHdHMu7U1QcKoj5FOKg pIkbQT4ffLKeJQzdRf7x fRsdkKyoAL4aUTWn emhau921VjAmg3awPZXe rFSjDBnjNTT6I85za8R2 BUCqDTVkBJI6nDS5pT0g bGlnbjogbGVmdDsg vfFwoBwbBItuMWoiC048 IHRvcDsnPkJpcnRoIERh mWS6VS99SV62hTExk0X3 xCX0W7PlALXcrkvu lzjhbSP0CIQxYWPrwF54 Cn5fwKkdPw1rSPKzRGL0 FDDssCBrD4MgnT6gHdGb VNQsSEZuZ9WizBRx MGvqR317FGexRrE8RVEg hrNeU1UxYXIiiAqyLwJ7 o6P1Lw3FS0G6IO12PB95 xBYsb9B4xPF1X4Qf LVCyvucggadawOJ4IPHh BGAzbW37Sh9mtQolNl9g PXNqLIT3PORihNCcW7Cl xZ3yEzOpJIDnXDIg R1NncDUgACxoD177TLft QdJ4VSHdhnIiC9JdBZLo qHquOqJ3r2W2Km2ULZk2 DY52TU23zJTtr2S0 yUA0E3GbZDDpoxnadpah sAJ4XEPvRAXgeS19Hq5w sEatQk8eRQQtXKQ4BCJc jIGkI9GolG9nFaWh AYXsSWDcE8FfeXYcBLec M928NQtdFbF9TVNtpmAh O0AhVHGgaHizYvK9g6Q4 Xv1QOFMvMJ87JVV1 cJU3JR83ZY61W8KbIrno dGFibGU+PHRhYmxlIHdp ZHRoPScxMDAlJyBzdHls VB5vQk1eEAZxZISn eJwchTYrZbPjf4wvRPXs WZzsKI8qmLcbU3ZajOG3 SRUkn7l9Fa48H78tN6Vu dXA+FVHocNO4hHJ8 qP1tYhJzMsF8KQjyC923 WvRhjOEfIzzwq3lnc3eg lVc2KzY7RUMlfzKrnXfq TQF1e0AiPt50F70r IHdpZHRoPSIxNSUiIHZh dUgmrh2dbN5jAv5+PGNv rTS6dXF4pT5nCxJyNmZ6 XEfkX686WrMatUSx Ptzif6yiq2maeDo8CsFa NIPssiDypUlwHVS7u6Nt Hx16H3CjhQidn6UlZkw5 ed05tWQzw9T0mIG3 P8TsFRFlrcdjrASoyXfg HE7jVDMlkhobKIFuqH9p VGXzV3t7XqCeDuP7QPob F2NccxI9LJLidVVv XOfiAQF4C29qv7O4XRWl VYFcRSX3oBJ1wD7yxEcq bjogbGVmdDsgdmVydGlj CSchAEifX656ICEc xLnlRJBryV6dDHChhOWr sLcxPK6wTDRghxduKlbJ EsGVHgejNfEXKRBCIK82 DB62lHNkg4D7lNP3 X2GiNLRjytagapgvhVG2 IVGdKNAwcR83qLFtRQry Sw9is8Y5a986DXCgHQQd mE57Mh5aeYzlFHHl lTIUcW1xyvpvm4lonvwp NtEeUAVyGVm2SVw0UIBd cKiaGrHxBEI9BgP8HGY3 hTVtqG1oqAhroiyt lO1eSfh+MTEvMTQvMTk4 OTwvdGQ+GZCcHSR0hDzk WSfyCJXbyR0cCYMcA0z4 GpPhUkO7GQguM7Rk BRRqldtdOa98kJ8hWpYr SmA3RKzwW6ChvrF3XVYu kOPzIVlkYJD7D65uf8Y6 SQLxASYwGIX4kNR7 xX1xsAnfwrsnsFKxoYpj ciSgkLwhVHjhINkpZ655 IHRvcDsnPjMxIFllYXJz QC65QB11nSHbu0F1 mBQ0T6GcTOWjfwpotorr vLH6ILJqLVJazO44sGCm BTxhLi7oj3E5k486BTUk BXTiaK70Io4ijXrn QAVsvINZxB0bsahfh8ct szxuZdJdZBGhBOa4AGw6 FCTjbVakFiHiNOI5UyF8 ZWH8gHXtaS4kqUgz yzlawG8yKip+RmVtYWxl ZR88FW00xXIrv0F4oZX3 P1MsANZiofjodhgwgEW5 LCXtJPMuqU19vHQv RDotQo1py6Z3n249QEPi QAOncY99Hd5jhCkgURZt sQCSnC2eozhgd5hlpxht IhMtMQWrNDl0QZs7 ICJmsXqjTeIlZUL0VxX8 HCK5vBKwhK2qpTmyxwzn tZ3pHoz+K2CyCIB3MVPd q839C6FwCdunwXH+ UD47UUXfNA05eZUidJKt t8fusEi7OlIxJTBaAKC7 uDsqGRvtz1IwANUkR66g yDRjf1G5PQJqaGgn uKOmIkEsdZY1uY5mIWtp ptzmj3kfzxubEsstl3oq jv93lZ15X59lNDlwQKVk PSIzMCUiIHZhbGln iy1jmZ6gTj9+PGNvbCB3 qTC9dC6wNzHjTsR3BDti K607IcHwcBQzLkspx8wr q1jyyNf3EiWvUMLr jeCboHeaXLC1u5JaUz88 Y30bFNdyQGOgZAHoUVTo XRLqmZdase1imD2wFe4+ KJ7fm9oehf29uU02 dHI+MNBzNRQ3iRnmYHdm HBPpnS1sFQsyFnI8GQNf WpLniZ54qQCnVJfnXt5v lMxakKnjRO6iAISe xnlny707ZaGim4ftAYTo zHJyWPwpTZZ0Q92rc0U2 VCFzOSFhUOL1qCH7dZ2p bGlnbjogbGVmdDsg nvIzjCoaUOyfKMjpA182 NKGcaMdsOxSmuQAtI4qb vxTSJH9nDxytuJO+PHRk AHE2hVxcITxfDGBh nN2wOLZpH9s1UpDpBmI6 QVlfL2SdyaT1KUMdmBLw FDXtaFFMbK6xaqtll3fd cjogIzAwMDAwMDt0 KHb8WYZsxOfnXiPvEDM4 CbU1GPY0aHDdjQ4qcVte kfqwfS1nCsj+RklOOjwv dGQ+NHCcBCR5jLhm NVzyWWFvqK2sTRRhO5f8 OiHpDfH4MEezH5RukrV8 FCAvhCZcBDIufCJNlL4w yrzqw0buurwkIkXb OMPqKHp5YWn9TRFmiRos LvTdJNG5JjC7EJW4rXFl rB8qeRgkdcqgkI7jDti+ TVJOOjwvdGQ+PHRk HJY5dLegCEzlRQOpiB8w PMGjX2m9IxLrDxK5BJfj H4VoshD4ZKWswKGsOTEl xQCVhH0dghfdp2wp ncwiKoHfCTPkBCy1AUw3 EZSkwRvhWuKiJYY0EpR8 MDL6wGTxaQ7hsHbytgyr pX5mCsd+CSU1XXG7 EY46RN45Z6CrYwqrnFRg bGU+PHRhYmxlIHdpZHRo QGogCAQmKkCvnHtbKF8n Uv7yAECvAQOodPyt cHNl (more content not included)... Normal [facility] Coding Summary.on 12-24-2020 Coding Summary. [id number] Gh0bWw+PGhlYWQ+PE1FV JIwP87fwEYryG4NV7bFS C9AROZFHROABH0QQE0vm YA6ZNvcO9OhuxQx WdrfqNMoAR63NHr1KLE2 cKipNQxekD8ozNTsB7j5 JdVuPB23gX21MNnwKRPh OiV4YzCdliilnRYj S1jnBzLkgMJbTng+PHRh YmxlIHdpZHRoPScxMDAl GxXkvRfbPN2aYm8gCUMb LWNvbGxhcHNlOiBj o8miPMFgVNrxQE9pxMtd I8RfwLH3YPFcz8z2Sg89 dHI+FMKgXMZ5gVxlQGkq h130KzYzx6euNNL7 qAXqTDcrTUK2W85hu0T6 EZEkXVFjPGJ5jYY6cP7n fXiudevrU8TynQNuMjI4 DYB7wXIgrQ4iuLmd xwenlK2vQif+Z12YLC3K DAXHEH6ZPnk8D3WmPmby dHI+WM49YBVrKC35zIDe fSXtt8ligSq2ZvCn LTJcVIT5hSrzSYgoi5Hb MZZqB96aeORaa8C6HTZk lXsqlOTnEsUkeMP3gD7r YMxfxlryq2gtfgft Ojnda8crnx82lG75M54h MEkyVOMnZJU6QJPbXKLb zLonxe3dfH4mFv3+IDxj v5khr6vjbTr1KnRl UMWfbzAqlXfaSQG3b0Ph Jv67S8CoyGwml5JmNsl5 qq39oSDmq4E6oVT0PIlv OCGohS6xIPguXhJ5 BMQvVwYshN03nYHrRNgf Ba3uoGnfvCqeAH1aRIZz vrzkKMYcfS4kJKPtkGKj jOnlYB9zAPIesxru x805PtDuFVE2FYHbyDNt C5JcoC4zQmPaXSDeTJKw V5LnaNQvOQvcK761IBvv OmK1ESWujfNdH8Ij ZBTyoBlsGbE5f8M9Fi8R i7MqisjsEEF4EPdvWWR1 UfXzPfFkPwA8W7KzRwr4 CNYbaIoyXG9dM0Cl PVOznwaxeybjkMU1GLNi TBBwnJ29yUEdZBahSt6d f7R2z618QETrCXPuhJ48 Hv2gkIztJCJeiZKL jD9tkblov4acgekpFtMq DMEdCOz2RDb3GZRhsIlb QhDzBNW0YsG2VGB8uQFf bQ8rrDbhluqkbP2g Oyc+V40woZ5pBHN8HAV3 bjuhDPCqxuOsHZ01VH33 Z3IcWsunyOEjtUD+PGRp wrQoaDohJP5vCzBd w4lem8QeVZtlU3KaCUSk XZvtVzn2HTBzMPU0lPC0 eU5lAYHmOHlui3A7mDO9 T4RfzuKtjk7md0qi DEQkPQcpH31piIZra1P3 JERceFY2TDKldNvnUhJy vW01Zeg+RVPshHqiz5Cn Lvtgq5mup2gsyIu5 IjMwJSIgdmFsaWduPSJ0 a8SbBk13A79xPOpwWOKf BQEhXSGmDRVtqGfxnu4p nR0vTe9+PGNvbCB3 sTE6wQ7tWYAoFmD7GEsq S307LmDurKYrJwolz9du z5zhfPh2JlGxGECruuEj pYomADP9o9ZnLg41 Q42yGUeqIIBtZFZgAEJx ALUxgFlrpa5zwY3xXe0+ IV5za1zwsg75qG58pXJ+ POMcSEI3pGjvTFnt AYRkoJ4gTGklVbB7TLAo RrYjhQ84gTBtYUpnNi0u hRecyIefFV0qYRGuqmcf n754XsZzx0zhPUDs eUOuVSgdKSU0O02ig3N8 NXZwMOKyNEZ2aJG5nI7j bGlnbjogbGVmdDsgdmVy gBdyOInmYQqpG952 IHRvcDsnPlBhdGllbnQg PiVoNUh2J8HvTwa8KSHi rGbzJR1qvXFnDRptUv3n nTxkiIxzLU6eFUJj ggziy280HsRkd8sqGUVm sBWmKMjyLBO8W29hh6B7 RIEtYUZfWGU3cWD2eI0y bGlnbjogbGVmdDsg mzTkqPheLOysNIjhH079 IHRvcDsnPkJpcnRoIERh bEP6TL61UK57gYIqj1Z7 kTV7B1NbHULsnxok gvrmjQK6LJHkIYUcbT77 Ln9saChwDk5iIZGnYDN4 TFTloINeN5LksF7vUkQj UAQfJEHiV0QyeWZy LYssA202STjrGwX0GXIf wwUeM1WbMJXxuSowHcT2 o8U3Ec3SF1S2UL51BP76 zBRnl7K8lWU7D5Iw KIIhivknxqfpuVU0SNVy ERDonM77Dz8npBurFp2e GUOzEWR4YFPhwBBbC0Ew pG3bHxUpHASpNLEc Z3KqgNWuCRitK218BIbc QoW4XMPkxoFjX1ShAHZo wXfzQbY3l1X9Gi6XCJr8 XV98FJ28vMAfq4X2 wPQ8H7ElRYEofftacujl kQK5YZPoNRMydX22Dz4a lGwcMa3kHRAlUFG5GGHi gOJyC9DstM2sBzAj NGXrDDMxM9KstDPuAOxx H415GMsxEjP8KOThkqLd Q1VcFIOqdAhaZkV6p1H5 Lj8PYIFxJD78PEJ3 qOD4NQ35VZ63K0IiAitg dGFibGU+PHRhYmxlIHdp ZHRoPScxMDAlJyBzdHls OS2dJm6jTTDzZJWh gYzmaXBfMkZbx0snZYSb DVsiXB6afUuwG5HipJQ8 PHIrn3x8Ra91M37kF8Hu dXA+CJVqzES8jHI2 xI8pOwXmWkA5NVjyW524 KrIcmUJmQlsse6ggw7im rLn6CkK3BGZvitNsrGjm RNY3e5FoXn39I53w IHdpZHRoPSIxNSUiIHZh sWxnit2pqY5wEg5+PGNv kJE9wFK5mZ5gPyAdMuM1 BKxoM273PsPkhNOl Vhiuy0eha1gvmYw2BdYm XBTvqoHueCqoWCS5s1Tr Bi40S2PauJvtq7HsRhm4 vl85dBVoj8C3uEY9 O9UoURVglndkrSUldLdj OQ6oFXAdnhnbPYRpqV3z XHNwO2m0BcGrLbV4VNrc A0OkivE2YQYkbKMn KYiaIYH8G93dx1C3FRHh TGBhOHA8lLP6eM9thNcf bjogbGVmdDsgdmVydGlj LJolQCsvH340VCRp uLbiVQQbdI7rHLIgxLFf rVrwWU1gQTEmrtuyDekM TsGFWxkbIeMYSWNUMC94 SB52wOFvq1P0xDU5 X4QjHLImblmuigybuAL0 VGJoTOTboF55iEUnXFyr Bn5jl5T6l701SJFaVDVg dL51Tb5hgYceHYDl fXIWeN7jqmobk8shvxje CiWbPKChCFd0BKx1GGHl dSwyIpJaHJN1QkY9AOD3 zCUdeY4bvRpkmsdg aY7gOgf+MTEvMTQvMTk4 OTwvdGQ+TNRrNVZ5qSiy WYcgEWUdzQ9iSHGtZ4y2 JtLaCyJ7ULieP4Vm SHSvhpdeAw74yB2sAwPk RaR1TPvbK3NsnrP4OVPi eLDxMAelUUI8Q42wo9T1 MFJxNKYrALM5wSK7 iC0bhCbimdkcxLLmwLud zuCtrNmaSFliLTvqS333 IHRvcDsnPjMxIFllYXJz ZK52EQ08fSLos3W0 qKR3D4ZaDUNdzapayooh wVE6LNLnGGHywC94hDMm LYhfRy3qq5H5w840ZTBt MPNwlS56Ld7wfMfo DCPcaVCNuE8iqycvq5qo rpcgUzKzBHBmXZg8NVs6 IXIloErrUoKpTZY6BaJ5 TGW0aZBskB0vnRwk jsusrF5lOde+RmVtYWxl SN27NZ27uLTqa0C2jLS1 U5FvTILgyofagbmccXE4 PIPbKWBdfY22hHUv RSfeTl9uf6H0i731ZQWd QXZjsX50Fl7tjLeoZPFx hFFHtM9flimsi2dhtcen EqJmIWSmGBq3RHs3 VBBnyGrvQxIoLDY6UqP2 GGC0bKYmoI3kcEnomldz eY0gCvy+ON7cpedsumF1 VZ87FY32F6TkCbeo dGFibGU+PHRhYmxlIHdp ZHRoPScxMDAlJyBzdHls CA1kMy1tWDTkIYOilAya pXJcHmHnn3cgQVUm ELuhJL4poJnjS4BskXS9 HGUhf1v1Nk22Y56qZ8Di dXA+OBNdoAE2fJW9sS1l TlBwXvA5TWpsV999 AqNqiBXsSddtd3ryj7ss nQl9KgIuXTPlqfSuuXtw AEP6a8KsBb89A30xZFvc ZHRoPSIyMCUiIHZh jKanul0ixN7dSe8+PGNv bCW2yBX5mU2xScHuYwI9 HGahS722KuFgvRChCpia G26cY6MzvAX+PHRy Wkp1GXMqcAwkTK2okVBy CShwYt7hUYZ2SuKrAzYq DBzkJ7WbIVKorvbgpkck oGE9VBZePLNkdL65 Ql3afSykKi2oDVRiZNA7 JJTavPTgA0IjuM7nIsPq PIGpGRPmV1PmcARgOXuz T717SFxrYqO2QBZf yeTsL0CgNJGrdNddFoL5 l4R2Vw3RrYfxqGGrXT7u HfFoCQo4N0QlMpu7UOTa oDviXW3tzTEiTSmy Gp4srWkygVykKZ2uQSFd wxtgp461FnMlk1vxXJNf jEFqXWykFCU0F95cj3G7 MLImINJzJNG5pMH3 gO6yiWbfookjzWUyjSvc xaOmwBdtDXruKSedW728 MQOssPvrJcMKOyb1M6Ff Owh3OFYdvUffTX0n hCKuIMmbKz8gnJwjwBxe FQ0hKVJvvwgcc158PzLq x5laNQTqeNFcPAnnJUC0 J39nx4M1EZObFPFd GEF2kZP7nS8icJtlxpmt bGVmdDsgdmVydGljYWwt ZCtnH852KODxtEhuDu7Y Puz1T4NxZig5DQDl jZqmXU7gpVFdOIdxKw2u hDhtnFyrUL6tFLDaxxgg p609KiOpv5ncWCJrxJFk ZJfiQFQ9R12ln9F0 ZBBuWYAoLZC5gRJ6fY0m bGlnbjogbGVmdDsgdmVy sYveGGdpTVjqA066ARDy cDsnPlBheWVyOjwv dGQ+AK22nk94J8FkQufp Pow8HNNnXMU0pIP3mS6g RKBmXGgow9S9pTH5W4Pt csUclr5hu3iyQDCo ZTog (more content not included)... [facility] C Urineon 12-20-2020 Bacteria identified Cx Nom (U) Microbiology PROCEDURE: Urine Culture [R1] SOURCE: Urine BODY SITE: COLLECTED DATE/TIME: 12/18/2020 02:00 EDT RECEIVED DATE/TIME: 12/18/2020 05:33 EDT START DATE/TIME: 12/18/2020 05:33 EDT FREE TEXT SOURCE: Darien Fishcer DO, DO, Kevin M. FINAL REPORTS Final Report [] Verified Date/Time: 12/20/2020 07:53 EDT <10,000 cfu/ml Mixed skin contaminants Performing Locations R1: This test was performed at: [facility], [address] [place] [address], [facility] , , [facility] Comment on above: Performed By: #### 1 [id number] ####[place] [address] Discharge Instructionson Discharge Instructions [id number] 1#1.00CD:127 [facility] ED Note-Physicianon 12-21-19 21 ED Note-Physician care transferred at change of shift. CT pending. CT returned without acute findings. Patient accepted for admission for pain control Impression: flank pain [facility] Comment on above: Result Comment: Elec tronically Signed By: Yevgeniy JOYCE, Salvador\.lito\Date and Time Signed: 12/19/20 23:07 EDT Inpatient Clinical Summaryon 12-20-2020 Inpatient Clinical Summary [address] [address] Clinical Summary Person Information: Name: FUNMILAYO CONWAY Age: 30 Years : 1990 Sex: Female PCP: Maki VEAL PA-C Marital Status: Phone: [phone] Race: White Ethnicity: Non- or Language: Bermudian Visit Id: Visit Reason: Vomiting; Back pain; Headache; VOMITTING; HEADACHE Speciality: Acuity: Enc Type: Observation Med Service: Medical Arrival: 12/19/2020 16:38:33 Discharge: Dispo Type: Admitted as IP to this Hosp Address: [address] [place] [address] [place] [address] [phone] Provider Notes: Diagnosis: 1:Myalgia; 2:Headache; 3:Left flank pain; 4:Fever; 5:Depression; 6:Anxiety; 7:DVT prophylaxis Problems Active Anxiety Depression Smoking Status: Never Smoker Functional Status: Sensory Deficits: History of Falls: Mobility Assistance Prior to Admission: ADLs: Current Level of Assistance for Self-Care/Mobility: Cognitive Status: Oriented x 3 Allergies Mold (Sneezing) Mildew (Sneezing) Dust (Sneezing) Animal Dander (Sneezing) Measurements: Height: 165 cm Weight: 142.4 kg Blood Pressure: 123 mmHg / 78 mmHg BMI: 53.26 kg/m2 Procedures section Immunizations No Immunizations Documented This Visit Final Med List: acetaminophen (acetaminophen 650 mg oral tablet, extended release) 1 Tablets By Mouth every 8 hours as needed Pain for 3 Days. Refills: 0. fluoxetine (Prozac 20 mg Cap) 1 Capsules By Mouth as needed Anxiety. lorazepam (Ativan 0.5 mg Tab) 1 Tablets By Mouth every 6 hours as needed as needed for anxiety. melatonin (melatonin 3 mg Tab) 3 Tablets By Mouth at bedtime as needed Insomnia. Care Team Members: Attending Physician: Neela LIM DO Consulting Physician: Referring Physician: Follow up: With: Address: When: Maki VELA [address] [place] [id number] Business (1) 12/26/2020 8:30 AM Patient Education Information: Viral Illness, Adult [facility] Inpatient Patient Summaryon 12-20-2020 Inpatient Patient Summary [address] [address] Patient Discharge Instructions PERSON INFORMATION Name: CONWAY FUNMILAYO Alatorre Date of : 1990 Current Date: 12/20/2020 10:46:28 PHYSICIANS Admitting Physician: Neela LIM DO Primary Care Physician: Maki VELA PA-C PCP Comment: Discharge Diagnosis: 1:Myalgia; 2:Headache; 3:Left flank pain; 4:Fever; 5:Depression; 6:Anxiety; 7:DVT prophylaxis Condition at Discharge: FUNMILAYO CONWAY has been given the following list of follow-up instructions, prescriptions, and patient education materials: PATIENT FOLLOW-UP INFORMATION Diet: Regular, Fat Modified- Low cholesterol, Low Sodium- 2000 mg Discharge Activity: Ambulate as tolerated, Activity as tolerated Discharge Restrictions: No restrictions Wound Care Instructions: Remove Your Dressing In Days Call Your Doctor For: IF UNABLE TO CONTACT YOUR PHYSICIAN AND YOU FEEL IT IS AN EMERGENCY, GO TO THE NEAREST EMERGENCY ROOM OR CALL 911 Home Treatment: Devices/Equipment: Special Services: Additional Instructions: Stay well hydrated with water Take tylenol prn for [facility] Primary Care Physician to provide the following pending test results: Follow up: With: Address: When: Maki WOODSMERS [address] [place] [id number] Business () 12/26/2020 8:30 AM In the event that this physician does not participate in your insurance network, please consult with your insurance company to find a nearby participating provider. Comment: TOM Doherty JANE A, have received the attached patient education materials/instructio ns and have verbalized understanding: Patient Signature Date Clinican/Nurse Signature Date HERE ARE THE MEDICATION CHANGES THAT OCCURRED DURING YOUR HOSPITAL STAY New Medications Other Medications acetaminophen (acetaminophen 650 mg oral tablet, extended release) 1 Tablets By Mouth every 8 hours as needed Pain for 3 Days. Refills: 0. Last Dose: Next Dose: melatonin (melatonin 3 mg Tab) 3 Tablets By Mouth at bedtime as needed Insomnia. Last Dose: Next Dose: Medications to Continue with No Changes Other Medications fluoxetine (Prozac 20 mg Cap) 1 Capsules By Mouth as needed Anxiety. Last Dose: Next Dose: lorazepam (Ativan 0.5 mg Tab) 1 Tablets By Mouth every 6 hours as needed as needed for anxiety. Last Dose: Next Dose: No Longer Take the Following Medications cephalexin (Keflex 500 mg Cap) 1 Capsules By Mouth every 6 hours for 7 Days. Refills: 0. Comment: MEDICATION LIST PROVIDED FOR YOU IS A LIST OF YOUR CURRENT MEDICATIONS. PLEASE CARRY THIS WITH YOU AT ALL TIMES. acetaminophen (acetaminophen 650 mg oral tablet, extended release) 1 Tablets By Mouth every 8 hours as needed Pain for 3 Days. Refills: 0. fluoxetine (Prozac 20 mg Cap) 1 Capsules By Mouth as needed Anxiety. lorazepam (Ativan 0.5 mg Tab) 1 Tablets By Mouth every 6 hours as needed as needed for anxiety. melatonin (melatonin 3 mg Tab) 3 Tablets By Mouth at bedtime as needed Insomnia. Pharmacy Information: [facility] Comment: PATIENT EDUCATION INFORMATION Instructions: Viral Illness, Adult Viruses are tiny germs that can get into a person's body and cause illness. There are many different types of viruses, and they cause many types of illness. Viral illnesses can range from mild to severe. They can affect various parts of the body. Common illnesses that are caused by a virus include colds and the flu. Viral illnesses also include serious conditions such as HIV/AIDS (human immunodeficiency virus/acquired immunodeficiency syndrome). A few viruses have been linked to certain cancers. What are the causes? Many types of viruses can cause illness. Viruses invade cells in your body, multiply, and cause the infected cells to malfunction or . When the cell dies, it releases more of the virus. When this happens, you develop symptoms of the illness, and the virus continues to spread to other cells. If the virus takes over the function of the cell, it can cause the cell to divide and grow out of control, as is the case when a virus causes cancer. Different viruses get into the body in different ways. You can get a virus by: ? Swallowing food or water that is contaminated with the virus. ? Breathing in droplets that have been coughed or sneezed into the air by an infected person. ? Touching a surface that has been contaminated with the virus and then touching your eyes, nose, or mouth. ? Being bitten by an insect or animal that carries the virus. ? Having sexual contact with a person who is infected with (more content not included)... Normal [facility] Procalcitoninon 12-20-2020 Procalcitonin .05 ng/mL Normal .00-.50 [facility] Comment on above: Result Comment: <0.5 ng/mL Low risk of severe sepsis and/or shock >2.0 ng/mL High risk of severe sepsis and/or shock Concentrations under 0.5 ng/mL do not exclude local infections or systemic infections in their initial stages (e.g.. under six hours from onset of illness). PCT concentrations between 0.5 and 2.0 ng/mL should be interpreted with consideration of the patient's history. In this range, it is recommended to retest PCT within 6 to 24 hours. Performed By: #### 2 [id number] #### [facility] [address] [place] [address] XR Chest Single Viewon 12-20 XR Chest Single View Exam Date/Time: 12/19/2020 17:55 EDT Reason for Exam: Shortness of breath (SOB) Report IMPRESSION: NO EVIDENCE OF ACTIVE CHEST DISEASE. CLINICAL HISTORY: Shortness of breath (SOB). COMMENT: AP portable. The heart is normal in size. The mediastinum is unremarkable. The lungs appear clear. No infiltration nor pleural effusion is evident. FINAL REPORT Dictated: 12/20/2020 7:30 am Reuben Woodruff M.D. Signed (Electronic Signature): 12/20/2020 7:30 am Signed by: Reuben Woodruff M.D. Transcribed by: LILY Technologist: COLLEGE TEACHER Normal [facility] Auto Diffon 12-19-2020 Basophils/100 WBC (Bld) 0.7 % Normal 0.0-2.0 [facility] Comment on above: Order Comment: Order Added by Discern Expert. Performed By: #### 2 771352, 1551199, 2771758, 91617033, 1273404, 7973917 #### [facility] [address] [place] [address]65[address] Basophils/Leukocytes Auto (Bld) [Pure # fraction] 0.1 E9/L Normal 0.0-0.2 [facility] Comment on above: Order Comment: Order Added by Discern Expert. Performed By: #### 2 390253, 6868420, 1747080, 14597316, 2597245, 0131079 #### [facility] [address] [place] [address]78 Eosinophils/100 WBC (Bld) 0.6 % Normal 0.0-8.0 [facility] Comment on above: Order Comment: Order Added by Discern Expert. Performed By: #### 2 821705, 1375520, 4633057, 80411638, 4856028, 6349863 #### [facility] [address] [place] [address] Eosinophils/Leukocyte s Auto (Bld) [Pure # fraction] 0.1 E9/L Normal 0.0-0.5 [facility] Comment on above: Order Comment: Order Added by Discern Expert. Performed By: #### 2 024421, 5030106, 8977069, 37888254, 8103911, 1799001 #### [facility] [address] [place] [address] 20460 Lymphocytes/100 WBC (Bld) 29.4 % Normal 14.0-50.0 [facility] Comment on above: Order Comment: Order Added by Discern Expert. Performed By: #### 2 630682, 1404877, 7690610, 49349378, 6736559, 5033250 #### [facility] [address] [place] [address] 29131 Lymphocytes/Leukocyte s Auto (Bld) [Pure # fraction] 2.5 E9/L Normal 1.0-4.0 [facility] Comment on above: Order Comment: Order Added by Discern Expert. Performed By: #### 2 094679, 0550667, 8967323, 82020973, 6542482, 7437970 #### [facility] [address] [place] [address] 33628 Monocytes/100 WBC (Bld) 7.8 % Normal 4.0-14.0 [facility] Comment on above: Order Comment: Order Added by Discern Expert. Performed By: #### 2 483905, 5555430, 1239469, 17652031, 4947809, 7416144 #### [facility] [address] [place] [address] 37941 Monocytes/Leukocytes Auto (Bld) [Pure # fraction] 0.7 E9/L Normal 0.2-1.0 [facility] Comment on above: Order Comment: Order Added by Discern Expert. Performed By: #### 2 346061, 2058112, 8977218, 57954540, 1202308, 9354057 #### [facility] [address] [place] [address] Neutrophils/100 WBC (Bld) 61.5 % Normal 36.0-75.0 [facility] Comment on above: Order Comment: Order Added by Discern Expert. Performed By: #### 2 993530, 9132539, 3579036, 29954287, 1464621, 1985369 #### [facility] [address] [place] [address] Neutrophils/Leukocyte s Auto (Bld) [Pure # fraction] 5.1 E9/L Normal 2.0-7.5 [facility] Comment on above: Order Comment: Order Added by Discern Expert. Performed By: #### 2 880226, 4926799, 3747902, 20802236, 7115581, 9534758 #### [facility] [address] [place] [address] 88493 CBC w/ Auto Diffon Erythrocyte distribution width (RBC) [Ratio] 12.7 % Normal 10.9-14.2 [facility] Comment on above: Performed By: #### 2 165066, 9171782, 4786154, 79234254, 2120267, 7909634 #### [facility] [address] [place] [address] 42187 Hematocrit (Bld) [Volume fraction] 41.2 % Normal 34.0-46.0 [facility] Comment on above: Performed By: #### 2 447443, 7680587, 4635039, 28277392, 4183395, 6696660 #### [facility] [address] [place] [address] Hemoglobin (Bld) [Mass/Vol] 13.8 g/dL Normal 12.0-16.0 [facility] Comment on above: Performed By: #### 2 613487, 6917302, 9042101, 92266141, 2882131, 4432212 #### [facility] [address] [place] [address] 07687 MCH (RBC) [Entitic mass] 29.6 pg Normal 27.0-34.0 [facility] Comment on above: Performed By: #### 2 156470, 6367934, 6246073, 06547540, 7822884, 5499781 #### [facility] [address] [place] [address] MCHC (RBC) [Mass/Vol] 33.5 g/dL Normal 31.4-36.0 [facility] Comment on above: Performed By: #### 2 156607, 9675973, 7196104, 48094600, 7601211, 9234138 #### [facility] [address] [place], [place] [address] MCV (RBC) [Entitic vol] 88.3 fL Normal 80.0-100.0 [facility] Comment on above: Performed By: #### 2 715980, 7665611, 4730597, 19317613, 5746126, 4007362 #### [facility] [address] [place] [address] Platelet mean volume (Bld) [Entitic vol] 8.3 fL Normal 6.4-10.8 [facility] Comment on above: Performed By: #### 2 510141, 7717170, 3485805, 64863230, 3223908, 7146555 #### [facility] [address] [place], [place] [address] Platelets (Bld) [#/Vol] 188.0 E9/L Normal 150.0-500.0 [facility] Comment on above: Performed By: #### 2 857348, 7300855, 2500573, 37379845, 8128057, 7973040 #### [facility] [address] [place], [place] [address] RBC (Bld) [#/Vol] 4.7 E12/L Normal 4.3-5.9 [facility] Comment on above: Performed By: #### 2 890252, 6359031, 2265673, 09106406, 3012568, 2527972 #### [facility] [address] [place] [address] WBC corrected for nucl RBC Auto (Bld) [#/Vol] 8.4 E9/L Normal 4.0-11.0 [facility] Comment on above: Performed By: #### 2 178900, 4170004, 2771005, 06105444, 4640510, 9706986 #### [facility] [address] [place] [address] CMPon 12-19-2020 Albumin [Mass/Vol] 4.2 g/dL Normal 3.3-5.0 [facility] Comment on above: Performed By: #### 2 611857, 5167785, 5170443, 48153585, 2819330, 1804303 ####[facility] [address] [place] [address] Albumin/Globulin (S) [Mass conc ratio] 1.0 Low 1.1-2.2 [facility] Comment on above: Performed By: #### 2 425912, 7839316, 0840129, 26396887, 4544222, 2787963 ####[facility] [address] [place] [address] ALP [Catalytic activity/Vol] 44 Int._Unit/L Normal 21-98 [facility] Comment on above: Performed By: #### 2 987385, 1063431, 3725402, 70621047, 6889390, 8419059 ####[facility] [address] [place] [address] ALT No additional P-5'-P [Catalytic activity/Vol] 22 Int._Unit/L Normal 6-46 [facility] Comment on above: Performed By: #### 2 611566, 6260631, 8565295, 81624935, 3608802, 3296504 ####[facility] [address] [place] [address] AST [Catalytic activity/Vol] 18 Int._Unit/L Normal 5-43 [facility] Comment on above: Performed By: #### 2 373835, 5351513, 6853738, 89377008, 0790404, 3908261 ####[facility] [address] [place] [address] Bilirubin [Mass/Vol] 0.8 mg/dL Normal 0.0-1.1 [facility] Comment on above: Performed By: #### 2 408790, 1192654, 6427553, 70554140, 9622326, 8015476 ####[facility] [address] [place] [address] Creatinine [Mass/Vol] 0.5 mg/dL Normal 0.5-1.3 [facility] Comment on above: Performed By: #### 2 463536, 3733467, 6260237, 05452938, 2229268, 6622531 ####[facility] [address] [place] [address] Globulin (S) [Mass/Vol] 4.0 g/dL Normal 1.4-4.0 [facility] Comment on above: Performed By: #### 2 412715, 8748612, 6060734, 19389191, 0733454, 6664440 ####[facility] [address] [place] [address] Protein [Mass/Vol] 8.2 g/dL High 6.0-7.8 [facility] Comment on above: Performed By: #### 2 326981, 0395558, 5809044, 56378206, 5314782, 8430177 ####[facility] [address] [place] [address] Urea nitrogen [Mass/Vol] 6 mg/dL Normal 5-21 [facility] Comment on above: Performed By: #### 2 940934, 2971829, 6384930, 19770413, 5528506, 2964439 ####[facility] [address] [place] [address] Urea nitrogen/Creatinine [Mass ratio] 12 No Units Normal 10-20 [facility] Comment on above: Performed By: #### 2 573562, 9081717, 8807719, 62183691, 9798136, 8088018 ####[facility] [address] [place] [address] Anion gap [Moles/Vol] 14 mmol/L Normal 6-16 [facility] Comment on above: Performed By: #### 2 858919, 6811937, 3963616, 23749632, 2104484, 6874147 ####[facility] [address] [place] [address] Calcium [Mass/Vol] 8.9 mg/dL Normal 8.9-11.1 [facility] Comment on above: Performed By: #### 2 688465, 1578309, 0009133, 34414865, 8704131, 7485868 ####[facility] [address] [place] [address] Chloride [Moles/Vol] 103 mmol/L Normal 101-111 [facility] Comment on above: Performed By: #### 2 996884, 1058108, 6529895, 48849012, 6286714, 1915062 ####[facility] [address] [place] [address] CO2 [Moles/Vol] 25 mmol/L Normal 21-31 [facility] Comment on above: Performed By: #### 2 135163, 2008945, 5210137, 45685634, 7001360, 3097699 ####[facility] [address] [place] [address] Glucose [Mass/Vol] 90 mg/dL Normal 55-199 [facility] Comment on above: Result Comment: If t his glucose result represents a fasting glucose, interpretation should refer to the following reference range: 55-99 mg/dL Performed By: #### 2 675986, 1884846, 5496857, 39138360, 1760187, 6970138 ####[facility] [address] [place] [address] Potassium [Moles/Vol] 3.8 mmol/L Normal 3.5-5.3 [facility] Comment on above: Performed By: #### 2 746938, 4684772, 1168391, 45277962, 9579796, 6163335 ####[facility] [address] [place] [address] Sodium [Moles/Vol] 138 mmol/L Normal 135-145 [facility] Comment on above: Performed By: #### 2 619185, 8307413, 6508036, 53633249, 9224968, 8418723 ####[facility] [address] [place] [address] CT Abdomen/Pelvis w/o Contra ston 12-19-2020 CT Abdomen/Pelvis w/o Contrast Exam Date/Time: 12/19/2020 17:57 EDT Reason for Exam: Flank pain, kidney stone suspected;Other (please specify) Report IMPRESSION: NO EVIDENCE OF OBSTRUCTIVE UROPATHY. NO EVIDENCE OF ACUTE ABDOMINAL OR PELVIC PATHOLOGY. CLINICAL HISTORY: Flank pain, kidney stone suspected. Patient indicates right-sided pain. COMMENT: Unenhanced images were obtained. There is a punctate nonobstructing calculus in each kidney. No other definite renal calculi are noted. No calculus is noted in either ureter. The renal collecting systems are not dilated. Both kidneys otherwise appear unremarkable, within the limits of this unenhanced study. The superior portions of the liver and spleen are not included within the busyw-pt-kvvh of this renal stone protocol study. The attenuation of the visualized portion of the liver suggests diffuse fatty infiltration, with the liver upper normal limits in size. There is a calcified granuloma in the spleen, the visualized portion of the spleen is otherwise unremarkable. The pancreas, gallbladder, and adrenal glands are unremarkable. There are small nonspecific retroperitoneal lymph nodes. There is no retroperitoneal lymphadenopathy. The abdominal aorta is normal in diameter. No aneurysm is evident. Evaluation of bowel is limited on this study. The bowel loops are not dilated. There is no evidence of bowel obstruction. The appendix is normal. There is fecal material in the colon, which limits evaluation. There is no evidence of diverticulitis. No abdominal inflammatory complex, no free air, nor free fluid is noted. The uterus is anteverted. No calculus is noted in the urinary bladder, and the urinary bladder is unremarkable in appearance. There is no pelvic mass nor pelvic lymphadenopathy. The visualized bones are unremarkable. All CT scans at this facility use dose modulation, iterative reconstruction, and/or weight based dosing when appropriate to reduce radiation dose to as low as reasonably achievable. FINAL REPORT Dictated: 12/19/2020 7:54 pm Reuben Woodruff M.D. Signed (Electronic Signature): 12/19/2020 7:54 pm Signed by: Reuben Woodruff M.D. Transcribed by: LILY Technologist: JAY Technical Comments Rectal Contrast Given? No Oral contrast amount in ml's: 0 Normal [facility] Consent for Treatmenton 12-05 Consent for Treatment [id number] 10 [id number] Normal [facility] ED Clinical Summaryon 2020 ED Clinical Summary [place] [id number] ED Clinical Summary Person Information Name: FUNMILAYO CONWAY Mariah/[facility] Age: 30 Years : 1990 Sex: Female Language: Bermudian PCP: Maki VELA PA-C Marital Status: Phone: [phone] Visit Id: Visit Reason: Vomiting; Back pain; Headache; NAUSEA AND VOMITTING SENT BY PCP Speciality: Acuity: 3 Enc Type: Emergency Med Service: Emergency Arrival: 12/19/2020 16:38:33 Discharge: LOS: 000 03:58 Checkin: 12/19/2020 16:38:33 Checkout: 12/19/2020 20:36:01 Dispo Type: Admitted as IP to this [facility] EVENTS: Event Name Event Status Request Date/Time Start Date/Time Complete Date/Time Arrive Complete 12/19/2020 16:38:33 12/19/2020 16:38:33 12/19/2020 16:38:33 Document Home Meds Request 12/19/2020 16:38:33 Triage Complete 12/19/2020 16:38:33 12/19/2020 16:53:08 12/19/2020 16:53:08 Bed Assign Complete 12/19/2020 16:48:11 12/19/2020 16:48:11 12/19/2020 16:48:11 Dr Exam Complete 12/19/2020 16:48:11 12/19/2020 16:49:29 12/19/2020 16:49:29 RN Exam Complete 12/19/2020 16:48:11 12/19/2020 17:09:05 12/19/2020 17:09:05 Registration Complete 12/19/2020 16:49:29 12/19/2020 16:59:03 12/19/2020 16:59:03 Isolation Screening Request 12/19/2020 16:53:08 Reg Complete Request 12/19/2020 16:59:03 Reg Bed Request Complete 12/19/2020 16:59:03 12/19/2020 16:59:03 12/19/2020 16:59:03 EKG Complete 12/19/2020 17:06:05 12/19/2020 17:14:05 Pending Labs Request 12/19/2020 17:06:05 Lab Request 12/19/2020 17:06:05 Urine Collect Complete 12/19/2020 17:06:05 12/19/2020 19:24:54 X-Ray Complete 12/19/2020 17:06:05 12/19/2020 17:48:44 12/19/2020 17:55:34 RT Request 12/19/2020 17:06:05 Meds Admin Request 12/19/2020 17:06:05 Patient Care Request 12/19/2020 17:06:05 CT Complete 12/19/2020 17:08:51 12/19/2020 17:48:40 12/19/2020 17:57:07 Pending Labs Complete 12/19/2020 17:36:35 12/19/2020 17:36:35 12/19/2020 17:55:14 Lab Complete 12/19/2020 17:36:35 12/19/2020 17:36:35 12/19/2020 17:55:14 Pending Labs Complete 12/19/2020 17:39:49 12/19/2020 17:39:49 12/19/2020 17:39:57 Lab Complete 12/19/2020 17:39:49 12/19/2020 17:39:49 12/19/2020 17:39:57 Wet Read Request 12/19/2020 17:55:34 Pending Labs Complete 12/19/2020 18:35:30 12/19/2020 18:35:30 12/19/2020 18:35:31 Inpatient Bed Ready Complete 12/19/2020 20:36:01 12/19/2020 20:36:01 12/19/2020 20:36:01 ADDRESS: [address] [place] [address] [address] [facility] [id number] PHYS DOC NOTES: MEDICAL INFORMATION: Prescriptions Given: Medications to Continue with No Changes Other Medications cephalexin (Keflex 500 mg Cap) 1 Capsules By Mouth every 6 hours for 7 Days. Refills: 0. ondansetron (ondansetron 4 mg Dis Tab) 1 Tablets By Mouth every 6 hours as needed Nausea/Vomiting. Refills: 0. PATIENT EDUCATION INFORMATION: Instructions: Follow up: DIAGNOSIS: Normal [facility] ED Note-Physicianon 12-20-19 ED Note-Physician Basic Information Time Seen: Shiva Ferreira DO 12/19/2020 16:49 Chief Complaint From home, patient complains of lower back pain, head pain, and vomiting. States she was seen in the ED and was told to come back if she started vomiting. Started vomiting today History of Present Illness HPI: Patient is a 30-year-old female who was previously healthy presents the ED for flank pain, fever, headache, nausea, and vomiting. Patient states that 2 days ago she was seen here for fever and flank pain as well as headache was diagnosed with UTI and possible pyelonephritis. She was started on oral antibiotics and told that if she had worsening symptoms including nausea and vomiting that she should return to the ED for reevaluation. Today she did develop nausea and vomiting and she states she overall feels worse than she did 2 days ago. She initially went and saw her primary care physician who told her that if she was feeling that much worse that she needed to come to the ED for reevaluation. She states that she was taking her antibiotic as directed and had not missed any doses. ROS: General: Positive fever and chills HEENT: No runny nose, congestion Neuro: No headache, numbness, or focal weakness Card: No chest pain or palpitations Resp: No cough or shortness of breath GI: Positive nausea and vomiting : Positive flank pain and frequency MSK: No arthralgias or myalgias Skin: No rash or pallor Physical exam: General: nontoxic appearing and in no distress HEENT: Mucous membranes moist Neuro: awake and alert Neck: supple, trachea midline Card: Heart regular rate and rhythm no murmur Resp: Lungs clear to auscultation no wheeze or rhonchi Abd: Soft and nondistended. No tenderness with no rebound or guarding. Positive right CVA tenderness. Ext: No gross deformity or edema Physical Exam Vitals & Measurements T: 36.7 ?C (Oral) HR: 91(Peripheral) RR: 18 BP: 128/63 SpO2: 97% HT: 165.0 cm HT: 165 cm WT: 145.0 kg WT: 145 kg BMI: 53.26 Medical Decision Making Patient is nontoxic-appearing and in no distress. She is afebrile in the ED. She does have CVA tenderness on exam. As she is symptomatically worse we will give her IV fluids as well as a dose of Rocephin and Zofran. Will obtain blood work and urinalysis as well as CT of the abdomen pelvis. Blood work is relatively unremarkable and urinalysis shows no signs of acute infection at this time however she has been on oral antibiotics. Reviewing her urine culture from earlier it did not have any further growth. Patient was signed out to the oncoming physician Dr Vuong pending CT result. Assessment/Plan Ordered: ceftriaxone + Sodium Chloride 0.9% intravenous solution 50 mL, 1,000 mg = 1 EA, IV Piggyback, Daily for 10 day(s), Stop date 12/30/20 8:59:00 EDT, Routine, Start date 12/20/20 9:00:00 EDT, 100 mL/hr, Infuse over 30 minute(s), 12/19/20 17:05:00 EDT ondansetron, 4 mg = 2 mL, Injection, IV Push, Once, Stop date 12/19/20 17:03:00 EDT, STAT, Start date 12/19/20 17:03:00 EDT, 12/19/20 17:03:00 EDT Sodium Chloride 0.9% intravenous solution, 1,000 mL, Soln-IV, IV, Once, Stop date 12/19/20 17:05:00 EDT, STAT, Start date 12/19/20 17:05:00 EDT, Infuse over 61, minute(s) Blood Culture Charcoal Blood Culture Charcoal CBC w/ Auto Diff Comprehensive Metabolic Panel Continuous Pulse Oximetry CT Abdomen/Pelvis w/o Contrast ECG 12 Lead Adult ED Cardiac Monitoring Lactic Acid Lactic Acid Oxygen Therapy Peripheral IV Insertion Troponin UA With Cult Reflex Vital Signs Vital Signs Vital Signs XR Chest Single View Disposition Plan Discharge Prescription List Prescriptions No active prescription medications Follow-up No qualifying data available Problem List/Past Medical History Ongoing No qualifying data Historical Procedure/Surgical History Deviated nasal septum, Extraction of wisdom tooth, Ganglion cyst of right foot, History of tonsillectomy. Medications Inpatient ceftriaxone additive + Sodium Chloride 0.9% intravenous solution 50 mL NS 1000 ml Bolus, 1000 mL, IV, Once Zofran 4 mg/2 mL Injection, 4 mg= 2 mL, IV Push, Once Home Keflex 500 mg Cap, 500 mg= 1 cap(s), Oral, q6hr ondansetron 4 mg Dis Tab, 4 mg= 1 tab(s), Oral, q6hr, PRN Allergies Animal Dander (Sneezing) Dust (Sneezing) Mildew (Sneezing) Mold (Sneezing) Social History Alcohol - No Risk, 04/12/2018 Substance Abuse - No Risk, 04/15/2018 Tobacco - No Risk, 04/12/2018 Never (less than 100 in lifetime) Tobacco Use:. Ready to change: No. Household tobacco concerns: No., 08/08/2019 Family History Family history is negative Lab Results WBC: 8.4 E9/L (12/19/20 17:30:00) RBC: 4.7 E12/L (12/19/20 17:30:00) Hgb: 13.8 gm/dL (12/19/20 17:30:00) Hct: 41.2 % (12/19/20 17:30:00) MCV: 88.3 fL (12/19/20 17:30:00) MCH: 29.6 pg (12/19/20 17:30:00) MCHC: 33.5 gm/dL (12/19/20 17:30:00) RDW: 12.7 % (12/19/20 17:30:00) Platelet: 188 E9/L (12/19/20 17:3 (more content not included)... [facility] Comment on above: Result Comment: Elec tronically Signed By: Shiva Ferreira DO\.br\Date and Time Signed: 12/19/20 19:19 EDT ED Patient Education Noteon 12-19-2020 ED Patient Education Note [facility] ED Patient Summaryon 021 ED Patient Summary [place] [id number] Patient Discharge Instructions Person Information Name: FUNMILAYO CONWAY Age: 30 Years Arrival Date: 12/19/2020 16:38:33 Discharge Diagnosis: Primary Care Physician: Maki VELA PA-C Provider Information Primary Provider: Shiva Ferreira DO Advanced Computer Application Developer:None The exam and treatment you received in the Emergency Department were for an urgent problem and are not intended as complete care. It is important that you follow up with a doctor, nurse practitioner, or physician?s program services assistant for ongoing care. If your symptoms become worse or you do not improve as expected and you are unable to reach your usual health care provider, you should return to the Emergency Department. We are available 24 hours a day. FUNMILAYO CONWAY has been given the following list of patient education materials, prescriptions and follow-up instructions: Follow-up Instructions: In the event that this physician does not participate in your insurance network, please consult with your insurance company to find a nearby participating provider. Patient Education Materials: A MESSAGE TO ALL PATIENTS REGARDING OPIOIDS PRESCRIPTION OPIOIDS: WHAT YOU NEED TO KNOW Prescription opioids can be used to help relieve yhufsfyh-od-oaknsy pain and are often prescribed following a surgery or injury, or for certain health conditions. These medications can be an important part of the treatment but also come with serious risks. It is important to work with your healthcare provider to make sure you are getting the safest, most effective care. WHAT ARE THE RISKS AND SIDE EFFECTS OF OPIOID USE? Prescription opioids carry serious risks of addiction and overdose, especially with prolonged use. An opioid overdose, often marked by slowed breathing, can cause sudden . The use of prescription opioids can have a number of side effects as well, even when taken as directed: ? Tolerance?meaning you might need to take more of the medication for the same pain relief ? Physical dependence?meaning you have symptoms of withdrawal when a medication is stopped ? Increased sensitivity to pain ? Constipation ? Nausea, vomiting, and dry mouth ? Sleepiness and dizziness ? Confusion ? Depression ? Low levels of testosterone that can result in lower sex drive, energy, and strength ? Itching and sweating RISKS ARE GREATER WITH: ? History of drug misuse, substance use disorder, or overdose ? Mental health conditions (such as depression or anxiety) ? Sleep apnea ? Older age (65 years and older) ? Avoid alcohol while taking prescription opioids. Also, unless specifically advised by your health care provider, medications to avoid include: ? Benzodiazepines (such as Xanax or Valium) ? Muscle relaxants (such as Soma or Flexeril) ? Hypnotics (such as Ambien or Lunesta) ? Other prescription opioids KNOW YOUR OPTIONS Talk to your health care provider about ways to manage your pain that don?t involve prescription opioids. Some of these options may actually work better and have fewer risks and side effects. Options may include: ? Pain relievers such as acetaminophen, ibuprofen, and naproxen ? Some medication that are also used for depression or seizures ? Physical therapy and exercise ? Cognitive behavioral therapy, a psychological, goal-directed approach, in which patients learn how to modify physical, behavioral, and emotional triggers of pain and stress. IF YOU ARE PRESCRIBED OPIOIDS FOR PAIN: ? Never take opioids in greater amounts or more often than prescribed. ? Follow up with your primary health care provider. o Work together to create a plan on how to manage your pain. o Talk about ways to help manage your pain that don?t involve prescription opioids. o Talk about any and all concerns and side effects. ? Help prevent misuse and abuse o Never sell or share prescription opioids. o Never use another person?s prescription opioids. ? Store prescription opioids in a secure place and out of reach of others (this may include visitors, children, friends, and family). ? Safely dispose of unused prescription opioids: Find your community drug take-back program or your pharmacy mail-back program, or flush them down the toilet, following guidance from the Food and Drug Administration (www.fda.gov/Drugs/R esourcesForYou). ? Visit www.cdc.gov/drugover dose to learn about the risks of opioids abuse and overdose. ? If you believe you may be struggling with addiction, tell your health transitional care manager and ask for guidance or call [facility]?S National Helpline at 8-081-751-LOKA. v Source: [place] Department of Health and Human Services/Center for Disease Control & Prevention [facility] Medications Given: Medication Dose Route Sodium Chloride 0.9% 1000.00 m (more content not included)... [facility] Lactic Acidon 12-19-2020 Lactate [Mass/Vol] 0.8 mmol/L Normal 0.5-2.2 [facility] Comment on above: Performed By: #### 2 [id number] #### [facility] [address] [place] [address] Lactate [Mass/Vol] 0.9 mmol/L Normal 0.5-2.2 [facility] Comment on above: Performed By: #### 2 [id number], [id number], [id number], [id number], [id number], [id number] #### [facility] [address] [place] [address] Physician Orderon 12-19-2020 Physician Order [id number]#1.00CD:127 Normal [facility] Troponinon 12-19-2020 Troponin I.cardiac [Mass/Vol] 2.30 pg/mL Low 10.10-27.10 [facility] Comment on above: Result Comment: The 95% CI (Confidence Interval) PPV (Positive Predictive Value) for myocardial infarction in females is 38 pg/mL, in males 51 pg/mL. The results should be used in conjunction with clinical conditions of myocardial infarction. (Access High Sensitivity Troponin I Instructions For Use, [place], January 2018) Performed By: #### 2 [id number], [id number], [id number], [id number], [id number], [id number] ####[facility] [address] [place] [address] UA With Cult Reflexon 2020 Bacteria LM Ql (Urine sed) TRACE Normal Trace [facility] Comment on above: Performed By: #### 1 [id number] ####[facility] [address] [place] [address] Bilirubin Ql (U) Negative Normal Negative [facility] Comment on above: Performed By: #### 1 [id number] ####[address] [address] Clarity (U) CLEAR Normal Clear [facility] Comment on above: Performed By: #### 1 [id number] ####[address] [address] Color (U) YELLOW Normal Yellow [facility] Comment on above: Performed By: #### 1 [id number] ####[address] [address] Epithelial cells.squamous LM.HPF (Urine sed) [#/Area] 3-4 Normal 0-2 [facility] Comment on above: Performed By: #### 1 [id number] ####[address] [address] Glucose Test strip (U) [Mass/Vol] Negative Normal Negative [facility] Comment on above: Performed By: #### 1 [id number] ####[address] [address] Hemoglobin Ql (U) Negative Normal Negative [facility] Comment on above: Performed By: #### 1 [id number] ####[address] [address] Ketones (U) [Mass/Vol] 1+ Abnormal Negative [facility] Comment on above: Performed By: #### 1 [id number] ####[address] [address] [place].plasma/Lithiu m.RBC (Bld) [Mass ratio] 0-3 Normal 0-3 [facility] Comment on above: Performed By: #### 1 [id number] ####[address] [address] Mucus Ql (Urine sed) 1+ Normal [facility] Comment on above: Performed By: #### 1 [id number] ####[facility] [address] [place] [address] Nitrite Ql (U) Negative Normal Negative [facility] Comment on above: Performed By: #### 1 [id number] ####[address] [address] pH (U) 6.0 [pH] Invalid Interpretation Code 5.0-9.0 [facility] Comment on above: Performed By: #### 1 [id number] ####[address] [address] Protein (U) [Mass/Vol] TRACE Abnormal Negative [facility] Comment on above: Performed By: #### 1 [id number] ####[address] [address] Specific gravity (U) [Rel density] 1.025 Invalid Interpretation Code 1.005-1.030 [facility] Comment on above: Performed By: #### 1 [id number] ####[address] [address] Type of Urine collection method Clean Catch Normal [facility] Comment on above: Performed By: #### 1 [id number] ####[address] [address] Urobilinogen Qn (U) 0.2 {Tg'U}/dL Normal 0.0-1.0 [facility] Comment on above: Performed By: #### 1 [id number] ####[address] [address] WBC Auto Ql (U) Negative Normal Negative [facility] Comment on above: Performed By: #### 1 [id number] ####[address] [address] WBC LM.HPF (Urine sed) [#/Area] 0-5 Normal 0-5 [facility] Comment on above: Performed By: #### 1 [id number] ####[facility] [address] [place] [address] eGFRon 12-19-2020 GFR/1.73 sq M.predicted among blacks MDRD (S/P/Bld) [Vol rate/Area] mL/min/{1.73_m2} Normal >=59 [facility] Comment on above: Order Comment: Order added by Discern Expert. Result Comment: eGFR is race adjusted. AA=. Performed By: #### 2 215075, 7890570, 3453670, 63636488, 2237186, 1825224 ####[facility] [address] [place] [address] GFR/1.73 sq M.predicted among non-blacks MDRD (S/P/Bld) [Vol rate/Area] mL/min/{1.73_m2} Normal >=59 [facility] Comment on above: Order Comment: Order added by Discern Expert. 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 Kidney failure is indicated at less than 15 mL/min/1.73m2. Performed By: #### 2 033598, 7076211, 9121696, [id number], 1119540, 3502293 ####[facility] [address] [place] [address] Consent for Treatmenton 12-05 Consent for Treatment [id number] #1.00CD:127 [facility] Discharge Instructionson Discharge Instructions [id number] 3#1.00CD:127 [facility] ED Clinical Summaryon 2020 ED Clinical Summary [address] [address] ED Clinical Summary Person Information Name: FUNMILAYO CONWAY [place] Age: 30 Years : 1990 Sex: Female Language: Bermudian PCP: Maki VELA PA-C Marital Status: Phone: [phone] Visit Id: Visit Reason: Back pain; Headache; Fever; FEVER/NAUSIA Speciality: Acuity: 3 Enc Type: Emergency Med Service: Emergency Arrival: 12/18/2020 00:55:40 Discharge: 12/18/2020 03:52:20 LOS: 000 02:57 Checkin: 12/18/2020 00:55:40 Checkout: 12/18/2020 03:52:20 Dispo Type: Home (Routine DC) EVENTS: Event Name Event Status Request Date/Time Start Date/Time Complete Date/Time Arrive Complete 12/18/2020 00:55:40 12/18/2020 00:55:40 12/18/2020 00:55:40 Document Home Meds Request 12/18/2020 00:55:40 Triage Complete 12/18/2020 00:55:40 12/18/2020 01:04:47 12/18/2020 01:04:47 Isolation Screening Request 12/18/2020 01:04:47 Bed Assign Complete 12/18/2020 01:05:16 12/18/2020 01:05:16 12/18/2020 01:05:16 Dr Exam Complete 12/18/2020 01:05:16 12/18/2020 02:26:36 12/18/2020 02:26:36 RN Exam Complete 12/18/2020 01:05:16 12/18/2020 02:32:17 12/18/2020 02:32:17 Pending Labs Complete 12/18/2020 02:19:01 12/18/2020 02:57:31 Lab Complete 12/18/2020 02:19:01 12/18/2020 02:57:31 Urine Collect Complete 12/18/2020 02:19:01 12/18/2020 02:57:31 Pending Labs Complete 12/18/2020 02:23:49 12/18/2020 03:42:47 Lab Complete 12/18/2020 02:23:49 12/18/2020 03:42:47 Urine Collect Complete 12/18/2020 02:23:49 12/18/2020 03:42:47 Registration Complete 12/18/2020 02:26:36 12/18/2020 03:34:12 12/18/2020 03:34:12 Pending Labs Collected 12/18/2020 02:57:31 12/18/2020 02:57:31 Lab Collected 12/18/2020 02:57:31 12/18/2020 02:57:31 Meds Admin Complete 12/18/2020 03:33:00 12/18/2020 03:37:24 Reg Complete Request 12/18/2020 03:34:12 Reg Bed Request Complete 12/18/2020 03:34:12 12/18/2020 03:34:12 12/18/2020 03:34:12 Discharge Complete 12/18/2020 03:43:53 12/18/2020 03:52:27 12/18/2020 03:52:27 Transfer Complete 12/18/2020 03:52:27 12/18/2020 03:52:27 12/18/2020 03:52:27 ADDRESS: [address] [place] [address] [place] [id number] PHYS DOC NOTES: MEDICAL INFORMATION: Prescriptions Given: New Medications [id number], [address], [place] [id number], [phone] cephalexin (Keflex 500 mg Cap) 1 Capsules By Mouth every 6 hours for 7 Days. Refills: 0. Medications to Continue with No Changes Other Medications ondansetron (ondansetron 4 mg Dis Tab) 1 Tablets By Mouth every 6 hours as needed Nausea/Vomiting. Refills: 0. PATIENT EDUCATION INFORMATION: Instructions: Pyelonephritis, Adult Follow up: With: Address: When: Maki VELA [address] [place] [address] Business (1) In 3 days DIAGNOSIS: Acute pyelonephritis [facility] ED Note-Nursingon 12-18-2020 ED Note-Nursing pt ambulatory to rr with steady gait w/o assistance. urine sample obtained. md at bedside for eval; awaiting further orders [facility] ED Note-Physicianon 12-19-19 ED Note-Physician Basic Information Time Seen: Darien Fischer DO 12/18/2020 02:26 Chief Complaint pt to ED with c/o fever, headache, and lower back pain. pt states high fever all day and c/o genrealized pain all over. pt denies n/v/d. History of Present Illness 30-year-old female to the emergency department with chief complaint of fever, flank pain, general malaise for the last 2 days. She denies any abdominal pain, nausea, vomiting, diarrhea. She denies any cough, shortness of breath, rhinorrhea, sore throat. She has been taking Motrin at home with mild relief of symptoms. She denies any dysuria or hematuria. No history of kidney stones. No aggravating or alleviating factors. Review of Systems CONSTITUTIONAL: Admits fever, malaise. Denies sweats, chills. NEURO: Denies difficulty walking, numbness, weakness, tingling, headache. HEENT: Denies sore throat, rhinorrhea, epistaxis, changes in vision. CARDIO: Denies chest pain, palpitations. PULM: Denies shortness of breath, cough. GI: Denies abdominal pain, nausea, vomiting, melena, hematochezia. : Admits flank pain. Denies painful urination, urgency, frequency, hematuria. MSK: Denies recent trauma, neck pain, back pain. SKIN: Denies rash, lesions. ENDOCRINE: Denies unexpected weight-loss, weight gain. HEME: Denies abnormal bleeding, bruising. Physical Exam Vitals & Measurements T: 37.0 ?C (Oral) HR: 98(Peripheral) RR: 18 BP: 118/68 SpO2: 98% HT: 165 cm HT: 165.0 cm WT: 147.6 kg WT: 147.6 kg BMI: 54.21 VITALS: I have reviewed the triage vital signs. GENERAL: Well developed, well appearing adult in no acute distress. NEURO: Alert and oriented. Moves all extremities. Face is symmetric and expressive. EYES: PERRL. No scleral icterus or conjunctival injection. No discharge. HENT: Normocephalic, atraumatic. Hearing is grossly intact. Nares grossly patent and without discharge. Mucous membranes moist. NECK: No JVD. Patient moves neck without restriction. CARDIO: Rhythm regular. Normal rate. No murmur, rub, or gallop. Pulses equal bilaterally in the upper and lower extremity. No lower extremity edema. PULM: Lungs clear to auscultation in all arroyo. No wheezes, rales, or rhonchi. No conversational dyspnea. No splinting, stridor, or accessory muscle use. GI/: Abdomen is soft and non-tender. Normoactive bowel sounds. EXTREMITIES: Symmetric muscle bulk. No joint swelling. No clubbing, cyanosis, or deformity. SKIN: Warm and dry. Normal turgor. No rash or lesions appreciated. PSYCH: Mood, affect, and interaction is appropriate to the setting. Medical Decision Making 30-year-old female to the emergency department chief complaint of flank pain and fevers. Vitals stable, the patient is afebrile. Abdominal examination is benign. Concern for UTI versus pyelonephritis given patient's symptoms. Urine and hCG ordered. Patient agrees with this plan. 3+ bacteria on the urine. Culture sent. Given flank pain, fevers, and bacteria in urine will treat for pyelonephritis. First dose of Keflex given in the emergency department. She is prescribed Keflex 4 times daily for 7 days. Follow-up with PCP for culture results and recheck. Return precautions were discussed. All questions answered. Patient agrees with this plan. The patient was discharged home. Assessment/Plan Acute pyelonephritis (N10: Acute pyelonephritis) Orders: cephalexin, 500 mg = 1 cap(s), Oral, q6hr, X 7 day(s), # 28 cap(s), Refills(s) 0, Pharmacy: [id number], 165, cm, 12/18/20 1:04:00 EDT, Height/Length Dosing, 147.6, kg, 12/18/20 1:04:00 EDT, Weight Dosing cephalexin, 500 mg = 1 cap(s), Cap, Oral, Once, Stop date 12/18/20 3:32:00 EDT, STAT, Start date 12/18/20 3:32:00 EDT, 12/18/20 3:32:00 EDT U Beta Hcg Qual UA With Cult Reflex Urine Culture Medications Administered Given Keflex 500 mg Cap, 500 mg, Oral Disposition Plan Patient Discharge Condition Improved Discharge Disposition Home Discharge Prescription List Prescriptions Keflex 500 mg Cap, 500 mg= 1 cap(s), Oral, q6hr Follow-up With When Contact Information Maki VELA In [address] [place], [place] [address] Business (1) Additional Instructions: Patient Education Pyelonephritis, Adult Problem List/Past Medical History Ongoing No qualifying data Historical Procedure/Surgical History Deviated nasal septum, Extraction of wisdom tooth, Ganglion cyst of right foot, History of tonsillectomy. Medications Inpatient No active inpatient medications Home Keflex 500 mg Cap, 500 mg= 1 cap(s), Oral, q6hr ondansetron 4 mg Dis Tab, 4 mg= 1 tab(s), Oral, q6hr, PRN Allergies Animal Dander (Sneezing) Dust (Sneezing) Mildew (Sneezing) Mold (Sneezing) Social History Alcohol - No Risk, 04/12/2018 Substance Abuse - No Risk, 04/15/2018 Tobacco - No Risk, 04/12/2018 Never (less than 100 in lifetime) Tobacco Use:. Ready to change: No. Household tobacco concerns: No., 08/08/2019 Family History (more content not included)... [facility] Comment on above: Result Comment: Elec tronically Signed By: Darien Fischer DO\.br\Date and Time Signed: 12/18/20 04:05 EDT ED Patient Education Noteon 12-18-2020 ED Patient Education Note Nephrology Pyelonephritis, Adult Pyelonephritis is an infection that occurs in the kidney. The kidneys are the organs that filter a person's blood and move waste out of the bloodstream and into the urine. Urine passes from the kidneys, through tubes called ureters, and into the bladder. There are two main types of pyelonephritis: ? Infections that come on quickly without any warning (acute pyelonephritis). ? Infections that last for a long period of time (chronic pyelonephritis). In most cases, the infection clears up with treatment and does not cause further problems. More severe infections or chronic infections can sometimes spread to the bloodstream or lead to other problems with the kidneys. What are the causes? This condition is usually caused by: ? Bacteria traveling from the bladder up to the kidney. This may occur after having a bladder infection (cystitis) or urinary tract infection (UTI). ? Bladder infections caused from bacteria traveling from the bloodstream to the kidney. What increases the risk? This condition is more likely to develop in: ? women. ? Older people. ? People who have any of these conditions: ? Diabetes. ? Inflammation of the prostate gland (prostatitis), in males. ? Kidney stones or bladder stones. ? Other abnormalities of the kidney or ureter. ? Cancer. ? People who have a catheter placed in the bladder. ? People who are sexually active. ? Women who use spermicides. ? People who have had a prior UTI. What are the signs or symptoms? Symptoms of this condition include: ? Frequent urination. ? Strong or persistent urge to urinate. ? Burning or stinging when urinating. ? Abdominal pain. ? Back pain. ? Pain in the side or flank area. ? Fever or chills. ? Blood in the urine, or dark urine. ? Nausea or vomiting. How is this diagnosed? This condition may be diagnosed based on: ? Your medical history and a physical exam. ? Urine tests. ? Blood tests. You may also have imaging tests of the kidneys, such as an ultrasound or CT scan. How is this treated? Treatment for this condition may depend on the severity of the infection. ? If the infection is mild and is found early, you may be treated with antibiotic medicines taken by mouth (orally). You will need to drink fluids to remain hydrated. ? If the infection is more severe, you may need to stay in the hospital and receive antibiotics given directly into a vein through an IV. You may also need to receive fluids through an IV if you are not able to remain hydrated. After your hospital stay, you may need to take oral antibiotics for a period of time. Other treatments may be required, depending on the cause of the infection. Follow these instructions at home: Medicines ? Take your antibiotic medicine as told by your health care provider. Do not stop taking the antibiotic even if you start to feel better. ? Take ztbb-xcy-kykqzhk and prescription medicines only as told by your health care provider. General instructions ? Drink enough fluid to keep your urine pale yellow. ? Avoid caffeine, tea, and carbonated beverages. They tend to irritate the bladder. ? Urinate often. Avoid holding in urine for long periods of time. ? Urinate before and after sex. ? After a bowel movement, women should cleanse from front to back. Use each tissue only once. ? Keep all follow-up visits as told by your health care provider. This is important. Contact a health care provider if: ? Your symptoms do not get better after 2 days of treatment. ? Your symptoms get worse. ? You have a fever. Get help right away if you: ? Are unable to take your antibiotics or fluids. ? Have shaking chills. ? Vomit. ? Have severe flank or back pain. ? Have extreme weakness or fainting. Summary ? Pyelonephritis is a urinary tract infection (UTI) that occurs in the kidney. ? Treatment for this condition may depend on the severity of the infection. ? Take your antibiotic medicine as told by your health care provider. Do not stop taking the antibiotic even if you start to feel better. ? Drink enough fluid to keep your urine pale yellow. ? Keep all follow-up visits as told by your health care provider. This is important. This information is not intended to replace advice given to you by your health care provider. Make sure you discuss any questions you have with your health care provider. Document Released: 05/24/2006 Document Revised: 03/28/2019 Document Reviewed: 03/28/2019 [employer] Patient Education ? 2019 [employer]. [facility] ED Patient Summaryon 021 ED Patient Summary [place] [id number] Patient Discharge Instructions Person Information Name: FUNMILAYO CONWAY Age: 30 Years Arrival Date: 12/18/2020 00:55:40 Discharge Diagnosis: Acute pyelonephritis Primary Care Physician: Maki VELA PA-C Provider Information Primary Provider: Darien Fischer DO Advanced Computer Application Developer:None The exam and treatment you received in the Emergency Department were for an urgent problem and are not intended as complete care. It is important that you follow up with a doctor, nurse practitioner, or physician?s program services assistant for ongoing care. If your symptoms become worse or you do not improve as expected and you are unable to reach your usual health care provider, you should return to the Emergency Department. We are available 24 hours a day. FUNMILAYO CONWAY has been given the following list of patient education materials, prescriptions and follow-up instructions: Follow-up Instructions: With: Address: When: Maki VELA [address] [place] [address] Business (1) In 3 days In the event that this physician does not participate in your insurance network, please consult with your insurance company to find a nearby participating provider. Patient Education Materials: Jenise, Adult A MESSAGE TO ALL PATIENTS REGARDING OPIOIDS PRESCRIPTION OPIOIDS: WHAT YOU NEED TO KNOW Prescription opioids can be used to help relieve hzvjifjq-np-zgkire pain and are often prescribed following a surgery or injury, or for certain health conditions. These medications can be an important part of the treatment but also come with serious risks. It is important to work with your healthcare provider to make sure you are getting the safest, most effective care. WHAT ARE THE RISKS AND SIDE EFFECTS OF OPIOID USE? Prescription opioids carry serious risks of addiction and overdose, especially with prolonged use. An opioid overdose, often marked by slowed breathing, can cause sudden . The use of prescription opioids can have a number of side effects as well, even when taken as directed: ? Tolerance?meaning you might need to take more of the medication for the same pain relief ? Physical dependence?meaning you have symptoms of withdrawal when a medication is stopped ? Increased sensitivity to pain ? Constipation ? Nausea, vomiting, and dry mouth ? Sleepiness and dizziness ? Confusion ? Depression ? Low levels of testosterone that can result in lower sex drive, energy, and strength ? Itching and sweating RISKS ARE GREATER WITH: ? History of drug misuse, substance use disorder, or overdose ? Mental health conditions (such as depression or anxiety) ? Sleep apnea ? Older age (65 years and older) ? Avoid alcohol while taking prescription opioids. Also, unless specifically advised by your health care provider, medications to avoid include: ? Benzodiazepines (such as Xanax or Valium) ? Muscle relaxants (such as Soma or Flexeril) ? Hypnotics (such as Ambien or Lunesta) ? Other prescription opioids KNOW YOUR OPTIONS Talk to your health care provider about ways to manage your pain that don?t involve prescription opioids. Some of these options may actually work better and have fewer risks and side effects. Options may include: ? Pain relievers such as acetaminophen, ibuprofen, and naproxen ? Some medication that are also used for depression or seizures ? Physical therapy and exercise ? Cognitive behavioral therapy, a psychological, goal-directed approach, in which patients learn how to modify physical, behavioral, and emotional triggers of pain and stress. IF YOU ARE PRESCRIBED OPIOIDS FOR PAIN: ? Never take opioids in greater amounts or more often than prescribed. ? Follow up with your primary health care provider. o Work together to create a plan on how to manage your pain. o Talk about ways to help manage your pain that don?t involve prescription opioids. o Talk about any and all concerns and side effects. ? Help prevent misuse and abuse o Never sell or share prescription opioids. o Never use another person?s prescription opioids. ? Store prescription opioids in a secure place and out of reach of others (this may include visitors, children, friends, and family). ? Safely dispose of unused prescription opioids: Find your community drug take-back program or your pharmacy mail-back program, or flush them down the toilet, following guidance from the Food and Drug Administration (www.fda.gov/Drugs/R esourcesForYou). ? Visit www.cdc.gov/drugover dose to learn about the risks of opioids abuse and overdose. ? If you believe you may be struggling with addiction, tell your health transitional care manager and ask for guidance or call [facility] National Helpline at 2-654-101-CCXZ. a Source: [facility] and [facility] (more content not included)... Normal [facility] U BetaHcg Qualon 12-18-2020 HCG.beta subunit (U) [Moles/Vol] Negative Normal [facility] Comment on above: Performed By: #### 2 [id number] ####[facility] [address] [place] [address] UA With Cult Reflexon 2020 Bacteria LM Ql (Urine sed) 3+ /HPF Abnormal Trace [facility] Comment on above: Performed By: #### 1 [id number], [id number] ####[facility] [address] [place] [address] Bilirubin Ql (U) Negative Normal Negative [facility] Comment on above: Performed By: #### 1 [id number], [id number] ####[facility] [address] [place] [address] Clarity (U) SL CLOUDY Abnormal Clear [facility] Comment on above: Performed By: #### 1 [id number], [id number] ####[facility] [address] [place] [address] Color (U) YELLOW Normal Yellow [facility] Comment on above: Performed By: #### 1 [id number], [id number] ####[facility] [address] [place] [address] Crystals LM Ql (Urine sed) Present Normal [facility] Comment on above: Performed By: #### 1 [id number], [id number] ####[facility] [address] [place] [address] Epithelial cells.squamous LM.HPF (Urine sed) [#/Area] 0-2 Normal 0-2 [facility] Comment on above: Performed By: #### 1 [id number], [id number] ####[facility] [address] [place] [address] Glucose Test strip (U) [Mass/Vol] Negative Normal Negative [facility] Comment on above: Performed By: #### 1 [id number], [id number] ####[facility] [address] [place] [address] Hemoglobin Ql (U) Negative Normal Negative [facility] Comment on above: Performed By: #### 1 [id number], [id number] ####[facility] [address] [place] [address] Ketones (U) [Mass/Vol] Negative Normal Negative [facility] Comment on above: Performed By: #### 1 [id number], [id number] ####[facility] [address] [place] [address] [place].plasma/Lithiu m.RBC (Bld) [Mass ratio] 0-3 Normal 0-3 [facility] Comment on above: Performed By: #### 1 [id number], [id number] ####[facility] [address] [place] [address] Mucus Ql (Urine sed) 1+ Normal [facility] Comment on above: Performed By: #### 1 [id number], [id number] ####[address] [address] Nitrite Ql (U) Negative Normal Negative [facility] Comment on above: Performed By: #### 1 [id number], [id number] ####[address] [address] pH (U) 7.0 [pH] Invalid Interpretation Code 5.0-9.0 [facility] Comment on above: Performed By: #### 1 [id number], [id number] ####[address] [address] Protein (U) [Mass/Vol] Negative Normal Negative [facility] Comment on above: Performed By: #### 1 [id number], [id number] ####[address] [address] Specific gravity (U) [Rel density] 1.020 Invalid Interpretation Code 1.005-1.030 [facility] Comment on above: Performed By: #### 1 [id number], [id number] ####[address] [address] Type of Urine collection method Clean Catch Normal [facility] Comment on above: Performed By: #### 1 [id number], [id number] ####[address] [address] Urobilinogen Qn (U) 0.2 {Tg'U}/dL Normal 0.0-1.0 [facility] Comment on above: Performed By: #### 1 [id number], [id number] ####[address] [address] WBC Auto Ql (U) Negative Normal Negative [facility] Comment on above: Performed By: #### 1 [id number], [id number] ####[address] [address] WBC LM.HPF (Urine sed) [#/Area] 0-5 Normal 0-5 [facility] Comment on above: Performed By: #### 1 [id number], [id number] ####[place] [address] Vital Signs Date Time Vital Sign Value Performing Clinician Facility 05-05-2023 15:54-0500 Body height 165.[address] Work Phone: [facility] 04-13-2023 10:23-0500 Body height 165.1 cm Jona Bermudez MD Work Phone: [facility] 04-13-2023 10:23-0500 Body weight 94.35 kg Jona Bermudez MD Work Phone: [facility] 12-30-2022 13:46-0400 Body height 165.[address] Work Phone: [facility] 12-30-2022 13:46-0400 Body weight 96.[address] Work Phone: [facility] 06-09-2022 09:24-0500 Body height 165.[address] Work Phone: [facility] 06-09-2022 09:24-0500 Body weight 118.[address] Work Phone: [facility] 03-18-2022 13:36-0400 Body height 165.1 cm Pacc 5 Work Phone: [facility] 03-18-2022 13:36-0400 Body temperature 97.39 [degF] Pacc 5 Work Phone: [facility] 03-18-2022 13:36-0400 Body weight 143.02 kg Pacc 5 Work Phone: [facility] 03-18-2022 13:36-0400 Diastolic blood pressure 81 mm[Hg] Pacc 5 Work Phone: [facility] 03-18-2022 13:36-0400 Heart rate 88 /min Pacc 5 Work Phone: [facility] 03-18-2022 13:36-0400 SaO2% (BldA) [Mass fraction] 97 % Pac 5 Work Phone: [facility] 03-18-2022 13:36-0400 Systolic blood pressure 133 mm[Hg] [facility] 5 Work Phone: [facility] 03-18-2022 11:10-0400 Body height 165.5 cm Jona Bermudez MD Work Phone: [facility] 03-18-2022 11:10-0400 Body weight 141.98 kg Jona Bermudez MD Work Phone: [facility] 03-18-2022 11:10-0400 Diastolic blood pressure 76 mm[Hg] Jona Bermudez MD Work Phone: [facility] 03-18-2022 11:10-0400 Heart rate 78 /min Jona Bermudez MD Work Phone: [facility] 03-18-2022 11:10-0400 Systolic blood pressure 134 mm[Hg] Jona Bermudez MD Work Phone: [facility] 02-08-2022 15:57-0400 Body height 165.1 cm Khoi Hoy Other Phone: [facility] Other Phone (unformatted): [phone] 02-08-2022 15:57-0400 Body temperature 97.88 [degF] Khoi Hoy Other Phone: [facility] Other Phone (unformatted): [phone] 02-08-2022 15:57-0400 Body weight 150 kg Khoi Hoy Other Phone: [facility] Other Phone (unformatted): [phone] 02-08-2022 15:57-0400 Diastolic blood pressure 78 mm[Hg] Khoi Hoy Other Phone: [facility] Other Phone (unformatted): [phone] 02-08-2022 15:57-0400 Heart rate 77 /min Khoi Hoy Other Phone: [facility] Other Phone (unformatted): [phone] 02-08-2022 15:57-0400 Respiratory rate 20 /min Khoi Hoy Other Phone: [facility] Other Phone (unformatted): [phone] 02-08-2022 15:57-0400 SaO2% (BldA) [Mass fraction] 97 % Khoi Hoy Other Phone: [facility] Other Phone (unformatted): [phone] 02-08-2022 15:57-0400 Systolic blood pressure 143 mm[Hg] Khoi Hoy Other Phone: [facility] Other Phone (unformatted): [phone] 12-01-2021 09:31-0400 Body height 167.6 cm [facility] Annpamellaargenis [facility] 12-01-2021 09:31-0400 Body weight 149.69 kg [facility] 11-26-2021 13:50-0400 Diastolic blood pressure 84 mm[Hg] Mulugeta Salmon MD Work Phone: [facility] 11-26-2021 13:50-0400 Heart rate 76 /min Mulugeta Salmon MD Work Phone: [facility] 11-26-2021 13:50-0400 Respiratory rate 15 /min Mulugeta Salmon MD Work Phone: [facility] 11-26-2021 13:50-0400 SaO2% (BldA) [Mass fraction] 95 % Mulugeta Salmon MD Work Phone: [facility] 11-26-2021 13:50-0400 Systolic blood pressure 127 mm[Hg] Mulugeta Salmon MD Work Phone: [facility] 11-26-2021 13:30-0400 Body temperature 97 [degF] Mulugeta Salmon MD Work Phone: [facility] 11-12-2021 15:29-0400 Body height 167.6 cm [facility] 11-12-2021 15:29-0400 Body weight 148.96 kg [facility] 11-07-2021 09:23-0400 Body weight 148.78 kg Danny Cristina DO Work Phone: [facility] 10-27-2021 17:25-0400 Body height 165.1 cm Myron Jacome Other [employer] Other 10-27-2021 17:25-0400 Body mass index (BMI) [Ratio] 55.74 kg/m2 Myron Jacome Other [employer] Other 10-27-2021 17:25-0400 Body temperature 97.8 [degF] Myrno Jacome Other [employer] Other 10-27-2021 17:25-0400 Body weight 151.96 kg Myron Jacome Other [employer] Other 10-27-2021 17:25-0400 SaO2% (BldA) [Mass fraction] 97 % Myron Jacome Other [employer] Other 09-15-2021 14:13-0400 Body height 167.2 cm Jona Bermudez MD Work Phone: [facility] 09-15-2021 14:13-0400 Body weight 152.86 kg Jona Bermudez MD Work Phone: [facility] 09-15-2021 14:13-0400 Diastolic blood pressure 86 mm[Hg] Jona Bermudez MD Work Phone: [facility] 09-15-2021 14:13-0400 Heart rate 92 /min Jona Bermudez MD Work Phone: [facility] 09-15-2021 14:13-0400 Systolic blood pressure 140 mm[Hg] Jona Bermudez MD Work Phone: [facility] Encounters Encounter Date Encounter Type Care Provider Facility Start: 06-22-2023 End: 06-22-2023 ambulatory EAGLE MA Not Available Start: 05-05-2023 End: 05-05-[address] Work Phone: General Surgery Comment on above: S/P gastric bypass ( Primary Dx); Impaired intestinal absorption; Dietary counseling and surveillance Start: 05-05-2023 End: 05-05-2023 Telemedicine consultation with patient Bita Yaritza RD Work Phone: [facility] Start: 04-13-2023 End: 04-13-2023 ambulatory KHOI BYRD Facility:[facility] Start: 04-13-2023 End: 04-13-2023 ambulatory Jona Bermudez MD Work Phone: General Surgery Comment on above: S/P gastric bypass ( Primary Dx) Start: 04-13-2023 End: 04-13-2023 Telemedicine consultation with patient Jona Bermudez MD Work Phone: [facility] Start: 12-30-2022 End: 12-30-[address] Work Phone: General Surgery Comment on above: S/P gastric bypass ( Primary Dx); Dietary counseling and surveillance Start: 12-30-2022 End: 12-30-2022 Telemedicine consultation with patient Bita Yaritza RD Work Phone: [facility] Start: 09-09-2022 End: 09-09-2022 ambulatory BITA YARITZA Facility:[facility] Start: 06-09-2022 End: 06-09-2022 ambulatory BITA YARITZA Facility:[facility] Start: 06-09-2022 End: 06-09-[address] Work Phone: General Surgery Comment on above: S/P gastric bypass ( Primary Dx); Impaired intestinal absorption; Dietary counseling and surveillance Start: 06-09-2022 End: 06-09-2022 Telemedicine consultation with patient Bita Yaritza PRATT Work Phone: [facility] Start: 05-15-2022 End: 05-18-2022 ambulatory JONA BERMUDEZ Facility:[facility] Start: 05-07-2022 End: 05-07-2022 ambulatory Jona Bermudez MD Work Phone: General Surgery Comment on above: History of Cathie-en-Y gastric bypass (Primary Dx) Start: 05-07-2022 End: 05-07-2022 Telemedicine consultation with patient Jona Bermudez MD Work Phone: [facility] Start: 04-08-2022 End: 04-08-2022 ambulatory Fellow Scott Main Work Phone: General Surgery Comment on above: Status post gastric bypass for obesity (Primary Dx); Obesity, Class III, BMI 40-49.9 (morbid obesity) (HCC) Start: 04-08-2022 End: 04-08-2022 Telemedicine consultation with patient Fellow Scott Main Work Phone: [facility] Start: 03-18-2022 End: 03-18-2022 Admission to establishment Pacc Main 5 Work Phone: [facility] Start: 03-18-2022 End: 03-18-2022 ambulatory Pacc Main 5 Work Phone: Pre Anesthesia Comment on above: Anxiety and depressi on Start: 03-18-2022 End: 03-18-2022 Patient encounter procedure Jona Bermudez MD Work Phone: General Surgery Comment on above: BMI 50.0-59.9, adult (HCC) (Primary Dx); PCOS (polycystic ovarian syndrome); History of delivery; Fatty liver Start: 03-13-2022 Telephone encounter Jagruti Escobar RN General Surgery Comment on above: Pre-Op Teaching Start: 03-10-2022 End: 03-10-[address] Work Phone: General Surgery Comment on above: Patient Education; R eassessment Start: 02-08-2022 End: 02-08-2022 Emergency department patient visit [facility] Other Phone (unformatted): [phone] Start: 01-07-2022 End: 01-07-2022 ambulatory DANUTA MACARIO Facility:[facility] Start: 01-05-2022 End: 01-05-2022 Departed Referred PHYSICIAN [facility] Start: 12-24-2021 Admission to [facility] Jona Bermudez MD Work Phone: General Surgery Comment on above: 02/01/2022 ([place]o [place] rgery date) Start: 12-24-2021 ambulatory Jona Bermudez MD Work Phone: [facility] Start: 12-23-2021 ambulatory Danny Morton n DO Work Phone: General Surgery Comment on above: Question regarding C OMP METABOLIC PANEL Start: 12-23-2021 Telephone encounter Danny Rosalio Cristina DO Work Phone: General Surgery Comment on above: Results Start: 12-03-2021 End: 12-03-2021 Patient encounter procedure Nurse Card [facility] Rej Work Phone: Cardiology Comment on above: Class 3 severe obesi ty with body mass index (BMI) of 50.0 to 59.9 in adult, unspecified obesity type, unspecified whether serious comorbidity present (HCC) Start: 12-01-2021 End: 12-01-[address] General Surgery Comment on above: Patient Education; R eassessment Start: 11-28-2021 End: 11-28-2021 Subsequent hospital visit by physician [facility] Work Phone: [facility] Radiology Ultrasound Comment on above: Class 3 severe obesi ty with body mass index (BMI) of 50.0 to 59.9 in adult, unspecified obesity type, unspecified whether serious comorbidity present (HCC) [E66.01, Z68.43] Start: 11-28-2021 End: 11-28-2021 Subsequent hospital visit by physician [facility] Work Phone: [facility] Radiology General Comment on above: Class 3 severe obesi ty with body mass index (BMI) of 50.0 to 59.9 in adult, unspecified obesity type, unspecified whether serious comorbidity present (HCC) [E66.01, Z68.43] Start: 11-26-2021 End: 11-26-2021 Preprocedural examination done Mulugeta Salmon MD Work Phone: Procedures Start: 11-26-2021 End: 11-26-2021 Subsequent hospital visit by physician Mulugeta Salmon MD Work Phone: Procedures Comment on above: Pre-op exam [Z01.818 ] Start: 11-12-2021 End: 11-12-2021 Admission to establishment [facility] Start: 11-12-2021 End: 11-12-2021 Preprocedural examination done [facility] Virtual Pre Anesthesia Start: 11-12-2021 End: 11-12-2021 ambulatory Maria T Lares APRN.EDUCATIONAL AUDIOLOGIST Work Phone: Pre Anesthesia Comment on above: Pre-op Instructions Preoperative examina tion (Primary Dx); Morbidly obese (HCC); Fatty liver; Anxiety and depression Start: 11-12-2021 E-mail encounter fro m caregiver Maria T Lares APRN.CNP Work Phone: [facility] Start: 11-07-2021 End: 11-07-2021 ambulatory Danny Cristina Work Phone: General Surgery Comment on above: Class 3 severe obesi ty with body mass index (BMI) of 50.0 to 59.9 in adult, unspecified obesity type, unspecified whether serious comorbidity present (HCC) (Primary Dx); PCOS (polycystic ovarian syndrome) Start: 11-07-2021 End: 11-07-2021 Telemedicine consultation with patient Danny Cristina DO Work Phone: [facility] Start: 10-27-2021 End: 10-27-2021 ambulatory Myron Jacome Other [facility] [email or web address] Other Start: 10-27-2021 Office outpatient vi sit 15 minutes Myron Jacome [facility] Start: 10-01-[address] ELMIRA SNOW Facilit y:[facility] Start: 09-27-[address] ELMIRA SNOW Facilit y:[facility] Start: 09-19-[address] KHOI BYRD Facility :[facility] Start: 09-16-2021 Orders Only Mulugeta painting MD Work Phone: General Surgery Comment on above: Pre-op exam (Primary Dx) Morbid obesity (HCC) (Primary Dx) Start: 09-16-2021 Preprocedural examination done Mulugeta Salmon MD Work Phone: General Surgery Start: 09-15-2021 End: 09-15-2021 Patient encounter procedure Jona Bermudez MD Work Phone: General Surgery Comment on above: Morbid obesity due t o excess calories (HCC) (Primary Dx); History of delivery Start: 07-03-2021 End: 07-03-[address] KHOI BYRD Facility:[facility] Start: 06-10-2021 End: 06-10-[address] KHOI BYRD Facility:[facility] Procedures Date Procedure Procedure Detail Performing Clinician Start: 11-28-2021 Us abdominal real time w/image limited Danny Cristina DO Work Phone: Start: 11-28-2021 Radiologic exam chest 2 views Danny Cristina DO Work Phone: Start: 11-26-2021 Esophagogastroduodenoscopy transoral diagnostic Mulugeta Salmon MD Work Phone: Start: 10-23-2021 Adult depression screening assessment Danny Cristina DO Work Phone: H/O: section History of delivery Jona Bermudez MD Work Phone: H/O: section History of delivery Jona Bermudez MD Work Phone: Plan of Treatment Date Care Activity Detail Author Start: 04-16-2028 Urine microalbumin profile DTaP,Tdap,Td Vaccine (3 - Td or Tdap) [facility] Start: 02-05-2023 Covid-19 Vaccine ( season) Covid-19 Vaccine ( season) [facility] Start: 02-05-2023 [facility] Start: 10-23-2022 Adult depression screening assessment DEPRESSION SCREENING [facility] Start: 02-05-2022 Influenza [facility] Start: 11-07-2021 End: 01-07-2022 CBC W Auto Differential panel - Blood CBC + DIFF Lab Routine Class 3 severe obesity with body mass index (BMI) of 50.0 to 59.9 in adult, unspecified obesity type, unspecified whether serious comorbidity present (HCC) Expected: 11/07/2021, Expires: 01/07/2022 [facility] Work Phone: Comment on above: Expected: 11/07/2021 , Expires: 01/07/2022 Start: 11-07-2021 End: 01-07-2022 Comprehensive metabolic 2000 panel - Serum or Plasma COMP METABOLIC PANEL Lab Routine Class 3 severe obesity with body mass index (BMI) of 50.0 to 59.9 in adult, unspecified obesity type, unspecified whether serious comorbidity present (HCC) Expected: 11/07/2021, Expires: 01/07/2022 [facility] Work Phone: Comment on above: Expected: 11/07/2021 , Expires: 01/07/2022 Start: 11-07-2021 End: 01-07-2022 FERRITIN BLD FERRITIN BLD Lab Routine Class 3 severe obesity with body mass index (BMI) of 50.0 to 59.9 in adult, unspecified obesity type, unspecified whether serious comorbidity present (HCC) Expected: 11/07/2021, Expires: 01/07/2022 [facility] Work Phone: Comment on above: Expected: 11/07/2021 , Expires: 01/07/2022 Start: 11-07-2021 End: 01-07-2022 Folate [Mass/volume] in Serum or Plasma FOLATE SERUM Lab Routine Class 3 severe obesity with body mass index (BMI) of 50.0 to 59.9 in adult, unspecified obesity type, unspecified whether serious comorbidity present (HCC) Expected: 11/07/2021, Expires: 01/07/2022 [facility] Work Phone: Comment on above: Expected: 11/07/2021 , Expires: 01/07/2022 Start: 11-07-2021 End: 01-07-2022 Hemoglobin A1c/Hemoglobin.total in Blood HGB A1C Lab Routine PCOS (polycystic ovarian syndrome) Expected: 11/07/2021, Expires: 01/07/2022 [facility] Work Phone: Comment on above: Expected: 11/07/2021 , Expires: 01/07/2022 Start: 11-07-2021 End: 01-07-2022 IRON + TIBC IRON + TIBC Lab Routine Class 3 severe obesity with body mass index (BMI) of 50.0 to 59.9 in adult, unspecified obesity type, unspecified whether serious comorbidity present (HCC) Expected: 11/07/2021, Expires: 01/07/2022 [facility] Work Phone: Comment on above: Expected: 11/07/2021 , Expires: 01/07/2022 Start: 11-07-2021 End: 01-07-2022 LIPID PANEL BASIC LIPID PANEL BASIC Lab Routine Class 3 severe obesity with body mass index (BMI) of 50.0 to 59.9 in adult, unspecified obesity type, unspecified whether serious comorbidity present (HCC) Expected: 11/07/2021, Expires: 01/07/2022 [facility] Work Phone: Comment on above: Expected: 11/07/2021 , Expires: 01/07/2022 Start: 11-07-2021 End: 01-07-2022 PTH INTACT BLD PTH INTACT BLD Lab Routine Class 3 severe obesity with body mass index (BMI) of 50.0 to 59.9 in adult, unspecified obesity type, unspecified whether serious comorbidity present (HCC) Expected: 11/07/2021, Expires: 01/07/2022 [facility] Work Phone: Comment on above: Expected: 11/07/2021 , Expires: 01/07/2022 Start: 11-07-2021 End: 01-07-2022 Thyrotropin [Units/volume] in Serum or Plasma TSH BLD Lab Routine Class 3 severe obesity with body mass index (BMI) of 50.0 to 59.9 in adult, unspecified obesity type, unspecified whether serious comorbidity present (HCC) Expected: 11/07/2021, Expires: 01/07/2022 [facility] Work Phone: Comment on above: Expected: 11/07/2021 , Expires: 01/07/2022 Start: 11-07-2021 End: 01-07-2022 VITAMIN B1 (THIAMINE), WHOLE BLOOD VITAMIN B1 (THIAMINE), WHOLE BLOOD Lab Routine Class 3 severe obesity with body mass index (BMI) of 50.0 to 59.9 in adult, unspecified obesity type, unspecified whether serious comorbidity present (HCC) Expected: 11/07/2021, Expires: 01/07/2022 [facility] Work Phone: Comment on above: Expected: 11/07/2021 , Expires: 01/07/2022 Start: 11-07-2021 End: 01-07-2022 VITAMIN B12 BLOOD VITAMIN B12 BLOOD Lab Routine Class 3 severe obesity with body mass index (BMI) of 50.0 to 59.9 in adult, unspecified obesity type, unspecified whether serious comorbidity present (HCC) Expected: 11/07/2021, Expires: 01/07/2022 [facility] Work Phone: Comment on above: Expected: 11/07/2021 , Expires: 01/07/2022 Start: 11-07-2021 End: 01-07-2022 VITAMIN D 25 HYDROXY VITAMIN D 25 HYDROXY Lab Routine Class 3 severe obesity with body mass index (BMI) of 50.0 to 59.9 in adult, unspecified obesity type, unspecified whether serious comorbidity present (HCC) Expected: 11/07/2021, Expires: 01/07/2022 [facility] Work Phone: Comment on above: Expected: 11/07/2021 , Expires: 01/07/2022 Start: 09-29-2021 End: 09-15-2022 EGD BARIATRIC EGD BARIATRIC Endoscopy Routine Morbid obesity due to excess calories (HCC) Expected: 09/29/2021, Expires: 09/15/2022 [facility] Work Phone: Comment on above: Expected: 09/29/2021 , Expires: 09/15/2022 Start: 05-21-2021 COVID-19 VACCINE (5 - Booster) COVID-19 VACCINE (5 - Booster) [facility] Start: 05-21-2021 COVID-19 VACCINE (5 - Pfizer series) COVID-19 VACCINE (5 - Pfizer series) [facility] Start: 2019 HPV TESTING HPV TESTING [facility] Start: 2010 PAP TESTING PAP TESTING [facility] Start: 2008 Urine microalbumin profile DTAP,TDAP,TD (1 - Tdap) [facility] Start: 2007 HEPATITIS C SCREENING HEPATITIS C SC REENING [facility] Start: 2007 HIV SCREENING HIV SCREENING [facility] Start: 2001 Adult depression screening assessment DEPRESSION SCREENING [facility] Start: 1989 HEPATITIS B (1 of 3 - 3-dose series) HEPATITIS B (1 of 3 - 3-dose series) [facility] Start: 1989 Hepatitis B Vaccine (1 of 3 - 3-dose series) Hepatitis B Vaccine (1 of 3 - 3-dose series) [facility] End: 11-07-2022 ECG COMPLETE ECG COMPLETE ECG Routine Class 3 severe obesity with body mass index (BMI) of 50.0 to 59.9 in adult, unspecified obesity type, unspecified whether serious comorbidity present (HCC) 1 Occurrences starting 11/07/2021 until 11/07/2022 [facility] Work Phone: Comment on above: 1 Occurrences starti ng 11/07/2021 until 11/07/2022 End: 09-16-2022 EGD DIAGNOSTIC EGD DIAGNOSTIC Endoscopy Routine Pre-op exam 1 Occurrences starting 09/16/2021 until 09/16/2022 [facility] Work Phone: Comment on above: 1 Occurrences starti ng 09/16/2021 until 09/16/2022 End: 12-07-2022 Radiologic exam chest 2 views XR CHEST 2V FRONTAL/LAT Radiology Routine Class 3 severe obesity with body mass index (BMI) of 50.0 to 59.9 in adult, unspecified obesity type, unspecified whether serious comorbidity present (HCC) 1 Occurrences starting 11/07/2021 until 12/07/2022 [facility] Work Phone: Comment on above: 1 Occurrences starti ng 11/07/2021 until 12/07/2022 End: 12-07-2022 Us abdominal real time w/image limited US ABD RT UPPER QUADRANT Radiology Routine Class 3 severe obesity with body mass index (BMI) of 50.0 to 59.9 in adult, unspecified obesity type, unspecified whether serious comorbidity present (HCC) 1 Occurrences starting 11/07/2021 until 12/07/2022 [facility] Work Phone: Comment on above: 1 Occurrences starti ng 11/07/2021 until 12/07/2022 [facility] Immunizations Immunization Date Immunization Notes Care Provider Vincent epps 03-11-2022 influenza virus vacc ine, unspecified formulation Jona Bermudez MD Work Phone: [facility] Payers Date Payer Category Payer Unknown MMO MMO [employer] [id number] 2021-Present [phone] [address] [place] [address] PPO [id number] 2021 Unknown 1989 Unknown [id number] 1989 Unknown [id number] 1989 Unknown [id number] 1989 Unknown [id number] 1989 Unknown [id number] 1989 Unknown [id number] 1989 Unknown [id number] 1959 Self-pay 1960 Unknown [id number] Social History Date Type Detail Facility Start: 09-15-2021 End: 03-18-2022 Tobacco smoking status NHIS Never smoked tobacco [facility] Start: 09-15-2021 End: 03-18-2022 Tobacco use and exposure Smokeless tobacco non-user [facility] Start: 1990 Sex Assigned At Not on file [facility] Start: 09-05-2021 End: 03-26-2022 Exposure to SARS-CoV-2 (event) Not sure [facility] Start: 11-12-2021 Alcohol intake Current drinke r of alcohol (finding) [facility] Start: 11-12-2021 History SDOH Alcohol Comment Not weekly [facility] Start: 03-18-2022 End: 12-30-2022 Sex Assigned At [facility] Start: 1990 Sex Assigned At Female F [facility] Tobacco smoking consumption unknown [facility] Other Phone (unformatted): [phone] Start: 02-13-2022 End: 02-23-2022 Exposure to SARS-CoV-2 (event) Yes [facility] Start: 03-18-2022 End: 04-13-2023 Alcohol intake Ex-drinker (finding) [facility] Start: 03-18-2022 End: 12-30-2022 History of Social function [facility] Adult Depression Screening Assessment 0 [facility] Clinical Notes 12-20-2020 to 05-05-[address] - 05/05/2023 3:54 PM Jona Adams MD - 04/13/2023 10:[address] - 12/30/2022 1:16 PM EDTPatient Instructions Note Date & Type Note Facility 05-05-2023 Note HNO ID: [id number] Author: Bita Vigil RD Service: ? Author Type: Registered Dietitian Type: Progress Notes Filed: 05/05/2023 5:03 PM Note Text: [facility] Nutrition Therapy: Virtual Consult - Re-assessment I have communicated my name and active licensure. The patient?s identity and physical location were verified at the time of this visit. Either the patient or their legal access service representative has been informed of the risks and benefits of -- and alternatives to -- treatment through a remote evaluation and consents to proceed with the evaluation remotely. Nutrition Diagnosis: Altered Gastrointestinal Tract Function, related to, S/P bariatric surgery, as evidenced by s/p RYGB RECOMMENDED MALNUTRITION DIAGNOSIS: NO MALNUTRITION IDENTIFIED NUTRITION CARE PLAN: Nutrition Intervention 05/05/2023: Modify type and amount of food at meals and snacks 1. Protein: Continue to strive for > 85 g protein per day. Eat protein first at all meals (lean meats, reduced fat dairy products, eggs, nuts/nut butters, seeds, beans). 2. Eat 4 small meals per day or 3 meals and 1-2 small snacks with protein. 3. Fluids: 64 fl oz per day, minimum. No carbonation, no caffeine, no calories, no alcohol. 4. Vitamin/minerals: continue taking 1 per day Bariatric Fusion One per Day Multivitamin Capsule with 45 mg Iron AND additional 7331-6408 mg per day Calcium Citrate 5. Exercise: strive for daily activity - combine strength training and cardio for best results. Goal of 30 minutes 5-6x per week. 6. Practice this: * Eat in the order of protein first, vegetable/fruit second and high fiber starch last * Separate eating and drinking by 30 minutes * Chew your food 20-30x per bite * Meals should last 30 minutes Nutrition Monitoring AND Evaluation: Patient update and weight check Need for Follow up: 6 months or as desired PROGRESS: Patient presents for follow up nutrition consult 13 months post op RYGB. Net weight loss 126 pounds (334 lbs initial) 37.7% TWL Pre-surgery weight: 313 pounds 5 pounds weight loss since last assessment (213 lbs) Diet recall indicates consistent eating pattern with 3 meals per day. Following phase 5 appropriately and tolerating most foods well. Attention to protein intake and well balanced meals. Fluids are appropriate in choice and quantity. Taking all recommended v/m supplements. Plans to establish exercise routine with change in routine and weather. 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 Protein: Continue to strive for 85 grams protein and at least 1200 calories per day. Eat protein first at all meals. (Lean meats, low fat dairy products, eggs, soy, beans, lentils, nut/seed butters) 2. Eat 4 small meals per day or 3 meals and 1-2 small snacks for additional protein 3. Fluids: 64 oz per day, minimum. No carbonation, no caffeine, no calories. 4. Vitamin/minerals: continue taking 1 per day Bariatric Fusion One per Day Multivitamin Capsule with 45 mg Iron AND 5882-8740 mg per day Calcium Citrate 5. Exercise: strive for daily activity. Increase as tolerated to goal of 200 minutes/week with combination of cardio and strength training exercise. 6. Practice mindful eating habits-take small portions, eat slowly, chew thoroughly Actions to implement interventions: see assessment Diet History: Breakfast - protein shake (20 gm protein powder, Akella milk +/- PB2) OR eggs, breakfast meat hash browns Snack - none Lunch - leftovers Snack - none Dinner - chicken/turkey, vegetable OR chili with beans, ground turkey, veggies OR stuffed peppers with ground turkey Snack - high protein pumpkin pudding Beverages - water Vitamins/Supplements - Fusion MVI with Fe, Ca citrate BID Activity: Activities of Daily Living: Active 50% of the day. 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 Resting Metabolic Rate: 1646 Malnutrition Screening Significant unintentional weight loss? No Eating less than 75% of usual intake for more than 2 weeks? No Potential Signs of Inflammation: no identifiable sources Nutritional status: Education Materials Provided: None this visit READINESS TO LEARN Cognitive ability: Alert and oriented Motivation to learn: Interested Family support: Moderate - Family present but overwhelmed Instruction provided to: Patient Patient learns best by: Multiple Methods Factors affecting learning: None Physical limitations affect (more content not included)... [facility] 05-05-[address] - 05/05/2023 5:03 PM EST 1. Protein: Continue to strive for > 85 g protein per day. Eat protein first at all meals (lean meats, reduced fat dairy products, eggs, nuts/nut butters, seeds, beans). 2. Eat 4 small meals per day or 3 meals and 1-2 small snacks with protein. 3. Fluids: 64 fl oz per day, minimum. No carbonation, no caffeine, no calories, no alcohol. 4. Vitamin/minerals: continue taking 1 per day Bariatric Fusion One per Day Multivitamin Capsule with 45 mg Iron AND additional 3840-9959 mg per day Calcium Citrate 5. Exercise: strive for daily activity - combine strength training and cardio for best results. Goal of 30 minutes 5-6x per week. 6. Practice this: * Eat in the order of protein first, vegetable/fruit second and high fiber starch last * Separate eating and drinking by 30 minutes * Chew your food 20-30x per bite * Meals should last 30 minutes documented in this encounter [facility] 05-05-2023 History of Present illness Narrative [facility] Nutrition Therapy: Virtual Consult - Re-assessment I have communicated my name and active licensure. The patient s identity and physical location were verified at the time of this visit. Either the patient or their legal access service representative has been informed of the risks and benefits of -- and alternatives to -- treatment through a remote evaluation and consents to proceed with the evaluation remotely. Nutrition Diagnosis: Altered Gastrointestinal Tract Function, related to, S/P bariatric surgery, as evidenced by s/p RYGB RECOMMENDED MALNUTRITION DIAGNOSIS: NO MALNUTRITION IDENTIFIED NUTRITION CARE PLAN: Nutrition Intervention 05/05/2023: Modify type and amount of food at meals and snacks 1. Protein: Continue to strive for > 85 g protein per day. Eat protein first at all meals (lean meats, reduced fat dairy products, eggs, nuts/nut butters, seeds, beans). 2. Eat 4 small meals per day or 3 meals and 1-2 small snacks with protein. 3. Fluids: 64 fl oz per day, minimum. No carbonation, no caffeine, no calories, no alcohol. 4. Vitamin/minerals: continue taking 1 per day Bariatric Fusion One per Day Multivitamin Capsule with 45 mg Iron AND additional 2698-3817 mg per day Calcium Citrate 5. Exercise: strive for daily activity - combine strength training and cardio for best results. Goal of 30 minutes 5-6x per week. 6. Practice this: * Eat in the order of protein first, vegetable/fruit second and high fiber starch last * Separate eating and drinking by 30 minutes * Chew your food 20-30x per bite * Meals should last 30 minutes Nutrition Monitoring & Evaluation: Patient update and weight check Need for Follow up: 6 months or as desired PROGRESS: Patient presents for follow up nutrition consult 13 months post op RYGB. Net weight loss 126 pounds (334 lbs initial) 37.7% TWL Pre-surgery weight: 313 pounds 5 pounds weight loss since last assessment (213 lbs) Diet recall indicates consistent eating pattern with 3 meals per day. Following phase 5 appropriately and tolerating most foods well. Attention to protein intake and well balanced meals. Fluids are appropriate in choice and quantity. Taking all recommended v/m supplements. Plans to establish exercise routine with change in routine and weather. 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 Protein: Continue to strive for 85 grams protein and at least 1200 calories per day. Eat protein first at all meals. (Lean meats, low fat dairy products, eggs, soy, beans, lentils, nut/seed butters) 2. Eat 4 small meals per day or 3 meals and 1-2 small snacks for additional protein 3. Fluids: 64 oz per day, minimum. No carbonation, no caffeine, no calories. 4. Vitamin/minerals: continue taking 1 per day Bariatric Fusion One per Day Multivitamin Capsule with 45 mg Iron AND 6965-3179 mg per day Calcium Citrate 5. Exercise: strive for daily activity. Increase as tolerated to goal of 200 minutes/week with combination of cardio and strength training exercise. 6. Practice mindful eating habits-take small portions, eat slowly, chew thoroughly Actions to implement interventions: see assessment Diet History: Breakfast - protein shake (20 gm protein powder, Akella milk +/- PB2) OR eggs, breakfast meat hash browns Snack - none Lunch - leftovers Snack - none Dinner - chicken/turkey, vegetable OR chili with beans, ground turkey, veggies OR stuffed peppers with ground turkey Snack - high protein pumpkin pudding Beverages - water Vitamins/Supplements - Fusion MVI with Fe, Ca citrate BID Activity: Activities of Daily Living: Active 50% of the day. 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 Resting Metabolic Rate: 1646 Malnutrition Screening Significant unintentional weight loss? No Eating less than 75% of usual intake for more than 2 weeks? No Potential Signs of Inflammation: no identifiable sources Nutritional status: Education Materials Provided: None this visit READINESS TO LEARN Cognitive ability: Alert and oriented Motivation to learn: Interested Family support: Moderate - Family present but overwhelmed Instruction provided to: Patient Patient learns best by: Multiple Methods Factors affecting learning: None Physical limitations affecting learning: None Likelihood of Adherence: Moderate Referred by: [facility] Billing Type: Re-assess/15 min 2 units SIGNATURE: Bita Vigil RD PATIENT NAME: Funmilayo Conway DATE: 05/05/2023 TIME: 3:54 PM PAGER: documented in this encounter [facility] 04-13-2023 Note HNO ID: [id number] Author: Jona Johns MD Service: ? Author Type: Physician Type: Progress Notes Filed: 04/13/2023 10:55 AM Note Text: Metabolic Surgery Postoperative Virtual Clinic Visit Name: Funmilayo Conway I have communicated my name and active licensure. The patient's identity and physical location were verified at the time of this visit. Either the patient or their legal access service representative has been informed of the risks and benefits of -- and alternatives to -- treatment through a remote evaluation and consents to proceed with the evaluation remotely. Index Surgery Date of Surgery: 03/26/2022 Surgeon: Jona Bermudez MD Surgical Procedure: LAPAROSCOPIC GASTRIC RESTRICTIVE SURG W/ BYPASS AND CATHIE-EN-Y 150CM OR LESS Pre-surgical weight: 142 kg (313 lb) Other Bariatric Surgeries Date of Surgery Surgeon Procedure HPI: Today's Visit: There were no vitals taken for this visit. No weight on file for this encounter. Last Visit: Wt: 96.6 kg (213 lb) BMI: 35.45 kg/(m2) Total weight loss: HT/WT/BMI 03/18/2022 04/16/2022 05/14/2022 06/09/2022 09/09/2022 12/30/2022 04/13/2023 HEIGHT 5' 5.15 5' 5 5' 5 5' 5 5' 5 WEIGHT 141.976 kg 133.358 kg 128.368 kg 118.253 kg 101.47 kg 96.616 kg 94.348 kg BODY MASS INDEX 51.85 48.92 47.09 43.38 37.23 35.45 34.61 BW today: 208 PHYSICAL EXAM: General - Normal, healthy, cooperative, in no acute distress, obese Able to interact verbally by video conference Psych - ORIENTATION: normal to time place, person and situation Mood/Affect: AFFECT AND MOOD: Normal Head/Neuro - Normal size and shape Facial appearance normal Pulmonary - respiratory effort normal Cardiovascular - patient describes extremities normal, warm, no cyanosis,no clubbing, and no edema Abdominal - Obese, Visible protrusions or hernias: No Incisions/scars: Healed, Skin - abnormal lesions not visualized Motor - patient seen sitting with Normal appearing strength and coordination Assessment A/P: Normal post-OP course, no concerns, taking her vitamins. She is not exercising. 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 DIET INTAKE: tolerates Phase V diet DAILY SUPPLEMENTS: Calcium: Calcium Citrate w/ vitamin D (1200 - 1500mg) Multivitamin AND Minerals: 1 per day Iron Supplement: included in multi-vitamin Vitamin A: included in multi-vitamin Vitamin B12: 500 mcg B Complex: No Biotin: No Vitamin C: included in multi-vitamin Vitamin D3: included in multi-vitamin Vitamin E: included in multi-vitamin Zinc: included in multi-vitamin Other: N/A EXERCISE: total minutes per week: n/a Are you attending any Support Groups? No attendance Current Outpatient Medications Medication Sig pantoprazole DR (PROTONIX) 40 mg tablet Take 1 tablet by mouth once daily. oxyCODONE IR (ROXICODONE) 5 mg immediate release tablet Take 1 tablet by mouth every 8 hours as needed for pain. senna (SENOKOT) 8.6 mg tab Take 1 tablet by mouth twice daily. acetaminophen (TYLENOL EXTRA STRENGTH) 500 mg tablet Take 1 tablet by mouth every 6 hours. ondansetron (ZOFRAN) 4 mg tablet Take 1 tablet by mouth every 8 hours as needed for nausea/vomiting. cholecalciferol, Vitamin D3, (VITAMIN D3) 1,250 mcg (50,000 unit) cap capsule Take 1 capsule by mouth one time a week. FLUoxetine HCl (PROZAC) 40 mg capsule Take 40 mg by mouth once daily. No current facility-administered medications for this visit. ACTIVE PROBLEM LIST Morbidly Obese (Hcc) Fatty Liver Anxiety and Depression Morbid Obesity (Hcc) Obesity, Class III, BMI >= 40 DISPOSITION: Return Annual to Post-op follow up/ individual office visit EDUCATION: Encouraged to continue with healthy lifestyle changes and incorporate cardiovascular and resistance training, Discussed weight loss expectations after bariatric and metabolic surgery, Advised PT to avoid NSAIDs, smoking tobacco given increased risk of marginal ulcers, or Discussed importance of protein intake as per the RDN note REFERRALS: Nutrition next week Jona Cormier MD, FACS, GABI info analyst [facility] Bariatric Fellowship Manager HvacCulture Manager laparoscopic Surgery Bariatric and Metabolic [place] [facility] 04-13-2023 History of Present illness Narrative Images from the original note were not included. Metabolic Surgery Postoperative Virtual Clinic Visit Name: Funmilayo Conway I have communicated my name and active licensure. The patient's identity and physical location were verified at the time of this visit. Either the patient or their legal access service representative has been informed of the risks and benefits of -- and alternatives to -- treatment through a remote evaluation and consents to proceed with the evaluation remotely. Index Surgery Date of Surgery: 03/26/2022 Surgeon: Jona Bermudez MD Surgical Procedure: LAPAROSCOPIC GASTRIC RESTRICTIVE SURG W/ BYPASS & CATHIE-EN-Y 150CM OR LESS Pre-surgical weight: 142 kg (313 lb) Other Bariatric Surgeries Date of Surgery Surgeon Procedure HPI: Today's Visit: There were no vitals taken for this visit. No weight on file for this encounter. Last Visit: Wt: 96.6 kg (213 lb) BMI: 35.45 kg/(m^2) Total weight loss: HT/WT/BMI 03/18/2022 04/16/2022 05/14/2022 06/09/2022 09/09/2022 12/30/2022 04/13/2023 HEIGHT 5' 5.15 5' 5 5' 5 5' 5 5' 5 WEIGHT 141.976 kg 133.358 kg 128.368 kg 118.253 kg 101.47 kg 96.616 kg 94.348 kg BODY MASS INDEX 51.85 48.92 47.09 43.38 37.23 35.45 34.61 BW today: 208 PHYSICAL EXAM: General - Normal, healthy, cooperative, in no acute distress, obese Able to interact verbally by video conference Psych - ORIENTATION: normal to time place, person and situation Mood/Affect: AFFECT AND MOOD: Normal Head/Neuro - Normal size and shape Facial appearance normal Pulmonary - respiratory effort normal Cardiovascular - patient describes extremities normal, warm, no cyanosis,no clubbing, and no edema Abdominal - Obese, Visible protrusions or hernias: No Incisions/scars: Healed, Skin - abnormal lesions not visualized Motor - patient seen sitting with Normal appearing strength and coordination Assessment A/P: Normal post-OP course, no concerns, taking her vitamins. She is not exercising. 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 DIET INTAKE: tolerates Phase V diet DAILY SUPPLEMENTS: Calcium: Calcium Citrate w/ vitamin D (1200 - 1500mg) Multivitamin & Minerals: 1 per day Iron Supplement: included in multi-vitamin Vitamin A: included in multi-vitamin Vitamin B12: 500 mcg B Complex: No Biotin: No Vitamin C: included in multi-vitamin Vitamin D3: included in multi-vitamin Vitamin E: included in multi-vitamin Zinc: included in multi-vitamin Other: N/A EXERCISE: total minutes per week: n/a Are you attending any Support Groups? No attendance Current Outpatient Medications Medication Sig pantoprazole DR (PROTONIX) 40 mg tablet Take 1 tablet by mouth once daily. oxyCODONE IR (ROXICODONE) 5 mg immediate release tablet Take 1 tablet by mouth every 8 hours as needed for pain. senna (SENOKOT) 8.6 mg tab Take 1 tablet by mouth twice daily. acetaminophen (TYLENOL EXTRA STRENGTH) 500 mg tablet Take 1 tablet by mouth every 6 hours. ondansetron (ZOFRAN) 4 mg tablet Take 1 tablet by mouth every 8 hours as needed for nausea/vomiting. cholecalciferol, Vitamin D3, (VITAMIN D3) 1,250 mcg (50,000 unit) cap capsule Take 1 capsule by mouth one time a week. FLUoxetine HCl (PROZAC) 40 mg capsule Take 40 mg by mouth once daily. No current facility-administered medications for this visit. ACTIVE PROBLEM LIST Morbidly Obese (Hcc) Fatty Liver Anxiety and Depression Morbid Obesity (Hcc) Obesity, Class III, BMI >= 40 DISPOSITION: Return Annual to Post-op follow up/ individual office visit EDUCATION: Encouraged to continue with healthy lifestyle changes and incorporate cardiovascular and resistance training, Discussed weight loss expectations after bariatric and metabolic surgery, Advised PT to avoid NSAIDs, smoking tobacco given increased risk of marginal ulcers, or Discussed importance of protein intake as per the RDN note REFERRALS: Nutrition next week Jona Cormier MD, FACS, GABI info analyst [facility] Bariatric Fellowship Manager HvacCulture Manager laparoscopic Surgery Bariatric and Metabolic [place] documented in this encounter [facility] 12-30-2022 Note HNO ID: [id number] Author: Bita Vigil RD Service: ? Author Type: Registered Dietitian Type: Progress Notes Filed: 12/30/2022 2:04 PM Note Text: This visit was performed virtually due to the COVID-19 epidemic as an effort to protect patients and minimize exposure. Consent from patient received to conduct visit virtually. This Team Access Model visit is a virtual GROUP encounter. It required patient-provider interaction for the medical decision making as documented below. Patient reports weight (as measured by home scale) of 213 pounds. AMBULATORY PATIENT EDUCATION NOTE-Shared Nutrition Group TOPIC: LIFE STYLE CHANGES: Post-op weight loss surgery: Diet and Exercise READINESS TO LEARN COGNITIVE ABILITY: Alert and oriented MOTIVATION TO LEARN: Interested FAMILY SUPPORT: Unable to assess - Family not present INSTRUCTION PROVIDED TO: Patient PATIENT LEARNS BEST BY: Multiple Methods FACTORS AFFECTING LEARNING: None PHYSICAL LIMITATIONS AFFECTING LEARNING: None LEARNING RESPONSE DIAGNOSIS: Inadequate protein-energy intake, related to: altered GI function, as evidenced by s/p RYGB Overweight Obesity, related to; food/nutrition - related knowledge deficit, as evidenced by BMI above normative standard for age and gender Malnutrition Screening Significant unintentional weight loss? No Eating less than 75% of usual intake for more than 2 weeks? Yes- advancing diet per bariatric protocol Nutritional status: METHOD OF INSTRUCTION: Individual instruction Group class instruction PATIENT / FAMILY RESPONSE: Nutrition outcome statement: Expect attention to diet to assist with weight management and minimum 1200 calories/2 liters of fluids per day. 9 months post op RYGB (Dr. Cormier) Net weight loss: 121 lbs (334 lbs initial) 36.2% TWL Pre-surgery weight: 313 pounds (representing 31.9% weight loss - tracking as anticipated) Weight loss since last session 10.7 pounds (223.7 lbs) Diet recall indicates consistent eating pattern with 3 meals and snacks as needed. Following phase 5 diet appropriately and tolerating well. Attention to protein intake from protein shake with fairlife milk, chicken, turkey, and chick pea pasta. Regular intake of fruits and vegetables as well. Experiencing increased bloating from some starches such as bread. Fluids are appropriate with water as primary beverage and all other beverages 0 sugar. She states doing well with no current concerns. 7302-4999 calories/day - advancing appropriately 80-100 protein intake/day - meeting needs 64+ fluid intake/day - meeting needs Taking all recommended vitamin/minerals from Bariatric Fusion 1/day MVI with 45 mg Fe, 600 mg Ca citrated BID, and biotin. No new labs. Resting Metabolic Rate: 1722 Energy needs for weight loss 4929-4148 (15-20 kcals/kg CBW) Protein needs: 85 grams protein per day (1.2 g/kg IBW kg) Exercise - decreased for the past ~week while taking care of daughter recovering from surgery but had been going to the gym x1 hr cardio and 15-30 minutes weights Reviewed nutrition principles of: 1. Protein: Continue to strive for 85 grams protein and at least 1200 calories per day. Eat protein first at all meals. (Lean meats, low fat dairy products, eggs, soy, beans, lentils, nut/seed butters) 2. Eat 4 small meals per day or 3 meals and 1-2 small snacks for additional protein 3. Fluids: 64 oz per day, minimum. No carbonation, no caffeine, no calories. 4. Vitamin/minerals: continue taking 1 per day Bariatric Fusion One per Day Multivitamin Capsule with 45 mg Iron AND 5685-0414 mg per day Calcium Citrate 5. Exercise: strive for daily activity. Increase as tolerated to goal of 200 minutes/week with combination of cardio and strength training exercise. 6. Practice mindful eating habits-take small portions, eat slowly, chew thoroughly Nutrition Monitoring AND Evaluation: Patient update and weight check Need for Follow up: 3 months Appointment Start Time: 1:00 pm Appointment End Time: 1:25 pm Time Spent on Consult: 25 minutes - Group Bita Vigil RD [facility] 12-30-[address] - 12/30/2022 2:04 PM EDT 1. Protein: Continue to strive for 85 grams protein and at least 1200 calories per day. Eat protein first at all meals. (Lean meats, low fat dairy products, eggs, soy, beans, lentils, nut/seed butters) 2. Eat 4 small meals per day or 3 meals and 1-2 small snacks for additional protein 3. Fluids: 64 oz per day, minimum. No carbonation, no caffeine, no calories. 4. Vitamin/minerals: continue taking 1 per day Bariatric Fusion One per Day Multivitamin Capsule with 45 mg Iron AND 9584-6625 mg per day Calcium Citrate 5. Exercise: strive for daily activity. Increase as tolerated to goal of 200 minutes/week with combination of cardio and strength training exercise. 6. Practice mindful eating habits-take small portions, eat slowly, chew thoroughly documented in this encounter [facility] 12-30-2022 History of Present illness Narrative This visit was performed virtually due to the COVID-19 epidemic as an effort to protect patients and minimize exposure. Consent from patient received to conduct visit virtually. This Team Access Model visit is a virtual GROUP encounter. It required patient-provider interaction for the medical decision making as documented below. Patient reports weight (as measured by home scale) of 213 pounds. AMBULATORY PATIENT EDUCATION NOTE-Shared Nutrition Group TOPIC: LIFE STYLE CHANGES: Post-op weight loss surgery: Diet and Exercise READINESS TO LEARN COGNITIVE ABILITY: Alert and oriented MOTIVATION TO LEARN: Interested FAMILY SUPPORT: Unable to assess - Family not present INSTRUCTION PROVIDED TO: Patient PATIENT LEARNS BEST BY: Multiple Methods FACTORS AFFECTING LEARNING: None PHYSICAL LIMITATIONS AFFECTING LEARNING: None LEARNING RESPONSE DIAGNOSIS: Inadequate protein-energy intake, related to: altered GI function, as evidenced by s/p RYGB Overweight Obesity, related to; food/nutrition - related knowledge deficit, as evidenced by BMI above normative standard for age and gender Malnutrition Screening Significant unintentional weight loss? No Eating less than 75% of usual intake for more than 2 weeks? Yes- advancing diet per bariatric protocol Nutritional status: METHOD OF INSTRUCTION: Individual instruction Group class instruction PATIENT / FAMILY RESPONSE: Nutrition outcome statement: Expect attention to diet to assist with weight management and minimum 1200 calories/2 liters of fluids per day. 9 months post op RYGB (Dr. Cormier) Net weight loss: 121 lbs (334 lbs initial) 36.2% TWL Pre-surgery weight: 313 pounds (representing 31.9% weight loss - tracking as anticipated) Weight loss since last session 10.7 pounds (223.7 lbs) Diet recall indicates consistent eating pattern with 3 meals and snacks as needed. Following phase 5 diet appropriately and tolerating well. Attention to protein intake from protein shake with fairlife milk, chicken, turkey, and chick pea pasta. Regular intake of fruits and vegetables as well. Experiencing increased bloating from some starches such as bread. Fluids are appropriate with water as primary beverage and all other beverages 0 sugar. She states doing well with no current concerns. 0225-0574 calories/day - advancing appropriately 80-100 protein intake/day - meeting needs 64+ fluid intake/day - meeting needs Taking all recommended vitamin/minerals from Bariatric Fusion 1/day MVI with 45 mg Fe, 600 mg Ca citrated BID, and biotin. No new labs. Resting Metabolic Rate: 1722 Energy needs for weight loss 8497-1929 (15-20 kcals/kg CBW) Protein needs: 85 grams protein per day (1.2 g/kg IBW kg) Exercise - decreased for the past ~week while taking care of daughter recovering from surgery but had been going to the gym x1 hr cardio and 15-30 minutes weights Reviewed nutrition principles of: 1. Protein: Continue to strive for 85 grams protein and at least 1200 calories per day. Eat protein first at all meals. (Lean meats, low fat dairy products, eggs, soy, beans, lentils, nut/seed butters) 2. Eat 4 small meals per day or 3 meals and 1-2 small snacks for additional protein 3. Fluids: 64 oz per day, minimum. No carbonation, no caffeine, no calories. 4. Vitamin/minerals: continue taking 1 per day Bariatric Fusion One per Day Multivitamin Capsule with 45 mg Iron AND 6335-6723 mg per day Calcium Citrate 5. Exercise: strive for daily activity. Increase as tolerated to goal of 200 minutes/week with combination of cardio and strength training exercise. 6. Practice mindful eating habits-take small portions, eat slowly, chew thoroughly Nutrition Monitoring & Evaluation: Patient update and weight check Need for Follow up: 3 months Appointment Start Time: 1:00 pm Appointment End Time: 1:25 pm Time Spent on Consult: 25 minutes - Group Bita Vigil RD documented in this encounter [facility] 09-09-2022 Note HNO ID: [id number] Author: Bita Vigil RD Service: ? Author Type: Registered Dietitian Type: Progress Notes Filed: 09/09/2022 2:18 PM Note Text: This visit was performed virtually due to the COVID-19 epidemic as an effort to protect patients and minimize exposure. Consent from patient received to conduct visit virtually. This Team Access Model visit is a virtual GROUP encounter. It required patient-provider interaction for the medical decision making as documented below. Patient reports weight (as measured by home scale) of 223.7 pounds. AMBULATORY PATIENT EDUCATION NOTE-Shared Nutrition Group TOPIC: LIFE STYLE CHANGES: Post-op weight loss surgery: Diet and Exercise READINESS TO LEARN COGNITIVE ABILITY: Alert and oriented MOTIVATION TO LEARN: Interested FAMILY SUPPORT: Unable to assess - Family not present INSTRUCTION PROVIDED TO: Patient PATIENT LEARNS BEST BY: Multiple Methods FACTORS AFFECTING LEARNING: None PHYSICAL LIMITATIONS AFFECTING LEARNING: None LEARNING RESPONSE DIAGNOSIS: Inadequate protein-energy intake, related to: altered GI function, as evidenced by PSH of RYGB Overweight Obesity, related to; food/nutrition - related knowledge deficit, as evidenced by BMI above normative standard for age and gender Malnutrition Screening Significant unintentional weight loss? No Eating less than 75% of usual intake for more than 2 weeks? Yes- advancing diet per bariatric protocol Nutritional status: METHOD OF INSTRUCTION: Individual instruction Group class instruction PATIENT / FAMILY RESPONSE: Nutrition outcome statement: Expect attention to diet to assist with weight management and minimum 1200 calories/2 liters of fluids per day. 6 months post op RYGB (Dr. Cormier) Net weight loss: 111 lbs (334 lbs initial) 33.2% TWL Pre-surgery weight: 313 pounds indicating 28.5% weight loss - tracking slightly higher than anticipated (25% 6 mo post-op RYGB) Weight loss since last session 37.7 pounds (260.7 lbs) Diet recall indicates consistent eating pattern with 4 small meals per day. Following phase 4 diet appropriately and tolerating well aside from red meat. Consuming protein primarily from poultry and protein shakes and including vegetables with meals. Fluids are appropriate with water as primary beverage. 900-1100 calories/day - meeting needs 80-90 protein intake/day - meeting needs 64+ fluid intake/day - meeting needs Taking all recommended vitamin/minerals from Bariatric Fusion MVI with 45 mg Iron and 600 mg Calcium citrate 2/day. Taking additional biotin and hair, skin, and nails. Labs not yet available to review. Resting Metabolic Rate: 1889 Energy needs for weight loss 6871-8315 (10-15 kcals/kg CBW) Protein needs: 85 grams protein per day (1.2 g/kg IBW kg) Exercise - gym 3-4 days per week cardio for 45 minutes and strength alternating arms and legs Reviewed nutrition principles of: 1. Protein: Continue to strive for 85 grams protein per day. Eat protein first at all meals. (Lean meats, low fat dairy products, eggs, soy, beans, lentils, nut/seed butters) 2. Eat 4 small meals per day or 3 meals and 1-2 small snacks for additional protein 3. Fluids: 64 oz per day, minimum. No carbonation, no caffeine, no calories. 4. Vitamin/minerals: continue taking Bariatric Fusion MVI with 45 mg of Iron and 600 gm Calcium citrate twice per day. take iron and calcium 2 hours apart and calcium 4 hours apart from each other 5. Exercise: strive for daily activity. Increase as tolerated to goal of 200 minutes/week with combination of cardio and strength training exercise. 6. Practice mindful eating habits-take small portions, eat slowly, chew thoroughly Nutrition Monitoring AND Evaluation:BMI<35 Criteria: weight check Need for Follow up: 3 months, as scheduled Appointment Start Time: 1:00 pm Appointment End Time: 1:32 pm Time Spent on Consult: 32 minutes - Group Bita Vigil RD [facility] 06-09-2022 Note HNO ID: [id number] Author: Bita Vigil RD Service: ? Author Type: Registered Dietitian Type: Progress Notes Filed: 06/09/2022 10:17 AM Note Text: [facility] Nutrition Therapy: Virtual Consult - Re-assessment This visit was performed virtually due to the COVID-19 epidemic as an effort to protect patients and minimize exposure. Consent from patient received to conduct visit virtually. This Team Access Model visit is a virtual encounter. It required patient-provider interaction for the medical decision making as documented below. Nutrition Diagnosis: Altered Gastrointestinal Tract Function, related to, S/P bariatric surgery, as evidenced by PSH of RYGB RECOMMENDED MALNUTRITION DIAGNOSIS: NO MALNUTRITION IDENTIFIED NUTRITION CARE PLAN: Nutrition Intervention 06/09/2022: Modify type and amount of food at meals and snacks 1. Protein: Continue to strive for > 85 g protein per day. Eat protein first at all meals (lean meats, reduced fat dairy products, eggs, nuts/nut butters, seeds, beans). 2. Eat 4 small meals per day or 3 meals and 1-2 small snacks with protein. 3. Fluids: 64 fl oz per day, minimum. Try using a reminder on your phone to remember to drink consistently on days you don't work. 4. Vitamins: Take 1 per day Bariatric Fusion Multivitamin with 45 mg Iron and Calcium Citrate (total of 3322-9993 mg/day) * take calcium citrate separately from Multivitamin with iron at least 2 hours apart and 4 hours apart from additional calcium 5. Exercise: strive for daily activity - combine strength training and cardio for best results. Goal of 30 minutes 5-6x per week. 6. Practice this: * Eat in the order of protein first, vegetable second * Separate eating and drinking by 30 minutes * Chew your food 20-30x per bite * Meals should last 30 minutes Nutrition Monitoring AND Evaluation: BMI <40 Need for Follow up: 3 months, as scheduled PROGRESS: Patient presents for follow up nutrition consult 2 months post op RYGB (Dr. Cormier). Today's reported weight 260.7 lb Net weight loss 73.3 pounds (334 lbs initial) 21.9% TWL Pre-surgery weight: 313 pounds (52.3 lb weight loss representing 16.7% TWL) - tracking as anticipated 33.3 pounds weight loss since last assessment (294 lbs) Diet recall indicates consistent eating pattern with no skipped meals. Attention to protein intake and overall portions. She states previously experiencing brain fog which has improved since reintroducing vegetables. Following phase 4 diet appropriately and reportedly tolerating well. Struggling to meet fluid needs on days she doesn't work due to change in routine. Otherwise, she reports doing well overall with no further concerns. 700-900 calories/day - insufficient 80-90 protein intake/day - meeting needs 42-64 fluid intake/day - insufficient Taking all vitamin/minerals. Labs not yet available to review. Resting Metabolic Rate: 1992 Energy needs for weight loss 4247-7558 (10-15 kcals/kg CBW) Protein needs: 85 grams protein per day (1.2 g/kg IBW kg) Exercise - walking, active with child, plans to start using weights Nutrition Intervention 04/16/22 1. Continue vitamins and minerals; refer to page 49 in your guideline booklet. Some of the most common regimens are: - Bariatric Fusion: 4 Complete Chewable Multivitamins per day (2 in the AM, 2 in the PM) [email or web address] - [employer]: 1 Bariatric Multivitamin and Calcium Citrate (total of 1115-0333 mg/day) * take calcium citrate separately from Multivitamin with iron at least 2 hours apart and 4 hours apart from additional calcium [email or web address] - Bariatric Choice: 4 Complete Multivitamins (chewables) per day [email or web address] - Bariatric Advantage: 2 Multivitamins and 3 Calcium Citrate Chewables per day * take calcium citrate separately from Multivitamin with iron at least 2 hours apart and 4 hours apart from additional calcium [email or web address] 2. Protein goal: 85 grams protein/day 3. Fluid goal: 64 ounces per day (no carbonation, caffeine, calories, alcohol) - separate foods and fluids by 20 minutes, small sips, no straw 4. Exercise goal: begin low intensity exercise until cleared by surgeon. 5. Practice mindful eating habits-take small portions, eat slowly, and chew thoroughly Diet History: Breakfast - clean simple eats protein + fairlife milk (20 gm + 13 gm) Snack - none Lunch - 3-4 protein, veggie OR chili Snack - none OR vietnamese yogurt Dinner - same as lunch Snack - none Beverages - 42-64 fl oz water (hector/crystal lite), decaf tea (milk, SF packet) Vitamins/Supplements - Bariatric Fusion one a day with 45 mg Iron, Calcium citrate 500 mg TID Activity: Activities of Daily Living: Active 25% of the day. 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 [facility] 06-09-[address] - 06/09/2022 10:15 AM EST Nutrition Summary: 1. Protein: Continue to strive for > 85 g protein per day. Eat protein first at all meals (lean meats, reduced fat dairy products, eggs, nuts/nut butters, seeds, beans). 2. Eat 4 small meals per day or 3 meals and 1-2 small snacks with protein. 3. Fluids: 64 fl oz per day, minimum. Try using a reminder on your phone to remember to drink consistently on days you don't work. 4. Vitamins: Take 1 per day Bariatric Fusion Multivitamin with 45 mg Iron and Calcium Citrate (total of 1620-0386 mg/day) * take calcium citrate separately from Multivitamin with iron at least 2 hours apart and 4 hours apart from additional calcium 5. Exercise: strive for daily activity - combine strength training and cardio for best results. Goal of 30 minutes 5-6x per week. 6. Practice this: * Eat in the order of protein first, vegetable second * Separate eating and drinking by 30 minutes * Chew your food 20-30x per bite * Meals should last 30 minutes Your Weight Loss: Net weight loss 73.3 pounds (334 lbs initial) 21.9% TWL Pre-surgery weight: 313 pounds (52.3 lb weight loss representing 16.7% TWL) - tracking as anticipated 33.3 pounds weight loss since last assessment (294 lbs) documented in this encounter [facility] 06-09-2022 History of Present illness Narrative [facility] Nutrition Therapy: Virtual Consult - Re-assessment This visit was performed virtually due to the COVID-19 epidemic as an effort to protect patients and minimize exposure. Consent from patient received to conduct visit virtually. This Team Access Model visit is a virtual encounter. It required patient-provider interaction for the medical decision making as documented below. Nutrition Diagnosis: Altered Gastrointestinal Tract Function, related to, S/P bariatric surgery, as evidenced by PSH of RYGB RECOMMENDED MALNUTRITION DIAGNOSIS: NO MALNUTRITION IDENTIFIED NUTRITION CARE PLAN: Nutrition Intervention 06/09/2022: Modify type and amount of food at meals and snacks 1. Protein: Continue to strive for > 85 g protein per day. Eat protein first at all meals (lean meats, reduced fat dairy products, eggs, nuts/nut butters, seeds, beans). 2. Eat 4 small meals per day or 3 meals and 1-2 small snacks with protein. 3. Fluids: 64 fl oz per day, minimum. Try using a reminder on your phone to remember to drink consistently on days you don't work. 4. Vitamins: Take 1 per day Bariatric Fusion Multivitamin with 45 mg Iron and Calcium Citrate (total of 5916-6207 mg/day) * take calcium citrate separately from Multivitamin with iron at least 2 hours apart and 4 hours apart from additional calcium 5. Exercise: strive for daily activity - combine strength training and cardio for best results. Goal of 30 minutes 5-6x per week. 6. Practice this: * Eat in the order of protein first, vegetable second * Separate eating and drinking by 30 minutes * Chew your food 20-30x per bite * Meals should last 30 minutes Nutrition Monitoring & Evaluation: BMI <40 Need for Follow up: 3 months, as scheduled PROGRESS: Patient presents for follow up nutrition consult 2 months post op RYGB (Dr. Cormier). Today's reported weight 260.7 lb Net weight loss 73.3 pounds (334 lbs initial) 21.9% TWL Pre-surgery weight: 313 pounds (52.3 lb weight loss representing 16.7% TWL) - tracking as anticipated 33.3 pounds weight loss since last assessment (294 lbs) Diet recall indicates consistent eating pattern with no skipped meals. Attention to protein intake and overall portions. She states previously experiencing brain fog which has improved since reintroducing vegetables. Following phase 4 diet appropriately and reportedly tolerating well. Struggling to meet fluid needs on days she doesn't work due to change in routine. Otherwise, she reports doing well overall with no further concerns. 700-900 calories/day - insufficient 80-90 protein intake/day - meeting needs 42-64 fluid intake/day - insufficient Taking all vitamin/minerals. Labs not yet available to review. Resting Metabolic Rate: 1992 Energy needs for weight loss 2307-7763 (10-15 kcals/kg CBW) Protein needs: 85 grams protein per day (1.2 g/kg IBW kg) Exercise - walking, active with child, plans to start using weights Nutrition Intervention 04/16/22 1. Continue vitamins and minerals; refer to page 49 in your guideline booklet. Some of the most common regimens are: - Bariatric Fusion: 4 Complete Chewable Multivitamins per day (2 in the AM, 2 in the PM) [email or web address].[email or web address] - [employer] [facility]: 1 Bariatric Multivitamin and Calcium Citrate (total of 4550-5924 mg/day) * take calcium citrate separately from Multivitamin with iron at least 2 hours apart and 4 hours apart from additional calcium [email or web address] - Bariatric Choice: 4 Complete Multivitamins (chewables) per day [email or web address].[email or web address] - Bariatric Advantage: 2 Multivitamins and 3 Calcium Citrate Chewables per day * take calcium citrate separately from Multivitamin with iron at least 2 hours apart and 4 hours apart from additional calcium [email or web address] 2. Protein goal: 85 grams protein/day 3. Fluid goal: 64 ounces per day (no carbonation, caffeine, calories, alcohol) - separate foods and fluids by 20 minutes, small sips, no straw 4. Exercise goal: begin low intensity exercise until cleared by surgeon. 5. Practice mindful eating habits-take small portions, eat slowly, and chew thoroughly Diet History: Breakfast - clean simple eats protein + fairlife milk (20 gm + 13 gm) Snack - none Lunch - 3-4 protein, veggie OR chili Snack - none OR vietnamese yogurt Dinner - same as lunch Snack - none Beverages - 42-64 fl oz water (hector/crystal lite), decaf tea (milk, SF packet) Vitamins/Supplements - Bariatric Fusion one a day with 45 mg Iron, Calcium citrate 500 mg TID Activity: Activities of Daily Living: Active 25% of the day. 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 Resting Metabolic Rate: 1993 Malnutrition Screening Significant unintentional weight loss? No Eating less than 75% of usual intake for more than 2 weeks? Yes, advancing diet per bariatric protocol Potential Signs of Inflammation: no identifiable sources Nutritional status: Education Materials Provided: None this visit READINESS TO LEARN Cognitive ability: Alert and oriented Motivation to learn: Interested Family support: Unable to assess - Family not present Instruction provided to: Patient Patient learns best by: Multiple Methods Factors affecting learning: None Physical limitations affecting learning: None Likelihood of Adherence: Moderate Referred/Supervised by: Casa/Yobany CHILDRESS Billing Type: Re-assess/15 min 1 unit SIGNATURE: Bita Vigil RD PATIENT NAME: Funmilayo Conway DATE: 06/09/2022 TIME: 9:25 AM PAGER: documented in this encounter [facility] 05-17-2022 Note HNO ID: [id number] Author: Louise Tobin, PhD Service: ? Author Type: Psychologist Type: Progress Notes Filed: 05/18/2022 8:58 AM Note Text: [facility] DEPARTMENT OF PSYCHIATRY AND PSYCHOLOGY/[facility] Bariatric Behavioral Services Progress Note May 17, 2022 Billing codes: FAYE Tobin CPT Code: 23155 Brief Emotional/Behavioral Assessment with scoring/documentation [id number] Virtual GROUP PSYCHOTHERAPY Time initiated session: 8:30 AM to 9:30 AM Index Surgery Date of Surgery: 03/26/22 Surgeon: Dr. Cormier. Surgical Procedure: gastric bypass Current weight: 283 pounds Psychologist: Piedad Pt was seen in a virtual group. Participants were given the opportunity to discuss their experience since surgery and ask questions of other group members. The group tree farmer addressed questions and concerns related to psychological challenges. Behavioral goals related to diet and physical activity were also discussed. All patients were encouraged to continue following up with all disciplines within the bariatric center. Subjective: Ms. Conway returns for a 1-2 month follow-up. She describes the following concerns post-operatively: Cannot tolerate red meats. She noted that her family smokes meats and she would like to be able to eat them in the future. She stated she has increased energy. She discussed some family issues with the holidays - her sister was not as accommodating as she had hoped. She was able to navigate a [email or web address] libertarian well - I felt normal. Patient mood described as good overall. Affect is: Appropriate. ALCOHOL/TOBACCO PHYSICAL ACTIVITY PT CONCERNS/GOALS Patient Data Generalized Anxiety Disorder Scale (TOSHIA-7) TOSHIA - 7 SCORES 10/23/2021 05/13/2022 TOSHIA-7 Score 7 4 (0-4) minimal anxiety, (5-9) mild anxiety, (10-14) moderate anxiety, (15-21) severe anxiety Patient Health Questionnaire (PHQ-9) PHQ-9 10/23/2021 05/13/2022 Score 7 1 (0-4) minimal depression, (5-9) mild depression, (10-14) moderate depression, (15-19) moderately severe depression, (20-27) severe depression Alcohol Use Disorders Identification Test - Short Version (AUDIT-C) AUDIT-C 05/13/2022 How often do you have a drink containing alcohol? Never How often do you have four or more drinks on one occasion? Never In men, a score of 4 or more is considered positive; in women, a score of 3 or more is considered positive. Generally, the higher the AUDIT-C score, the more likely it is that the patient's drinking is affecting his/her health and safety Assessment: Psychological Factors Affecting Morbid Obesity. Current Outpatient Medications Medication Sig ursodiol (ACTIGALL) 300 mg capsule Take 1 capsule by mouth twice daily. pantoprazole DR (PROTONIX) 40 mg tablet Take 1 tablet by mouth once daily. oxyCODONE IR (ROXICODONE) 5 mg immediate release tablet Take 1 tablet by mouth every 8 hours as needed for pain. senna (SENOKOT) 8.6 mg tab Take 1 tablet by mouth twice daily. acetaminophen (TYLENOL EXTRA STRENGTH) 500 mg tablet Take 1 tablet by mouth every 6 hours. ondansetron (ZOFRAN) 4 mg tablet Take 1 tablet by mouth every 8 hours as needed for nausea/vomiting. cholecalciferol, Vitamin D3, (VITAMIN D3) 1,250 mcg (50,000 unit) cap capsule Take 1 capsule by mouth one time a week. FLUoxetine HCl (PROZAC) 40 mg capsule Take 40 mg by mouth once daily. No current facility-administered medications for this visit. Plan/Recommendations: 1) The patient may benefit from the following: *Follow up with psychology at 3, 6, 12, 18 months and yearly, or as needed *attend bariatric surgery support groups *on-going follow-up with BMI team Louise Tobin, PhD, RD, LD, CDCES ACS-CEP, Psychologist [facility] 05-07-2022 History of Present illness Narrative Metabolic Surgery Postoperative Virtual Clinic Visit Name: Funmilayo Conway This visit was performed virtually via Zoom technology due to the COVID-19 epidemic as an effort to protect patients and minimize exposure.? Virtual Visit (Audio/Visual) I have discussed the nature of this visit with the patient which will occur via [employer] (Phone, Virtual Visit) and she agrees to proceed with this interaction . Index Surgery Date of Surgery: 03/26/2022 Surgeon: Jona Bermudez MD Surgical Procedure: LAPAROSCOPIC GASTRIC RESTRICTIVE SURG W/ BYPASS & CATHIE-EN-Y 150CM OR LESS Pre-surgical weight: 142 kg (313 lb) HPI: Doing well, pain is controlled. Tolerating PO intake. Takes around 64 oz of liquids and of 1 proteins. Had normal bowel movements. Walking and doing daily activities. Denies any fever, SOB, chest pain, calf muscle pain or swelling. Today's Visit: There were no vitals taken for this visit. No weight on file for this encounter. Last Visit: Wt: 133.4 kg (294 lb) BMI: 48.70 kg/(m^2) 283 from 315 Total weight loss: 32 lb PHYSICAL EXAM: General - Normal, healthy, cooperative, in no acute distress, obese Able to interact verbally by video conference Psych - ORIENTATION: normal to time place, person and situation Mood/Affect: AFFECT AND MOOD: Normal Head/Neuro - Normal size and shape Facial appearance normal Pulmonary - respiratory effort normal Cardiovascular - patient describes extremities normal, warm, no cyanosis,no clubbing, and no edema Abdominal - Obese, Visible protrusions or hernias: No Incisions/scars: Healed, Skin - abnormal lesions not visualized Motor - patient seen sitting with Normal appearing strength and coordination Assessment A/P: Normal post-OP course Patient Active Problem List Morbid obesity (HCC) Obesity, Class III, BMI >= 40 Morbidly obese (HCC) Fatty liver Anxiety and depression Resolved Hospital Problems No resolved problems to display. DISPOSITION: Return 1 year to Post-op follow up/ individual office visit EDUCATION: Encouraged to continue with healthy lifestyle changes and incorporate cardiovascular and resistance training, Discussed weight loss expectations after bariatric and metabolic surgery, Advised PT to avoid NSAIDs, smoking tobacco given increased risk of marginal ulcers, or Discussed importance of protein intake as per the RDN note Activity: OK to start exercise program Return to work with no restriction. Diet: Advance diet per Handbook Counseling: Vitamins, Symptoms of stricture and Ulcer REFERRALS: N/A LABS: Nohemi Brown MD Advanced Laparoscopic & Bariatric Surgery Fellow Bariatric & Metabolic [place] [facility] STAFF ATTESTATION: I have reviewed the note obtained and documented by the Resident/Fellow and I personally participated in the wade components. I have discussed the case and management of the patient's care with the Resident/Fellow. I have examined the patient, reviewed all relevant laboratory findings and imaging studies. The following comments revise or confirm relevant wade components of the Fellow/Resident's note. I spent a total of 25 minutes on the date of the service which included preparing to see the patient, [id number] patient care, completing clinical documentation, obtaining and/or reviewing separately obtained history, performing a medically appropriate examination, counseling and educating the patient/family/caregiver, and care coordination (not separately reported). IMPRESSION AND PLAN: Funmilayo Conway is status post LRYGB one month ago. Overall she is doing great, she has lost 32 Ib and has no medical issues. Refers no constipation, has normal bowel movements. She is on goal on protein and fluids intake, has no abdominal pain, no PONV. Plan is to follow her in one year. Jona Cormier MD documented in this encounter [facility] 04-08-2022 History of Present illness Narrative BARIATRIC SURGERY CLINIC FOLLOW UP NOTE Clinic Date: 04/08/2022 Funmilayo Conway, 31 year old [address] [facility] [address] This visit was performed virtually (phone conversation) due to the COVID-19 epidemic as an effort to protect patients and minimize exposure. Patient gave me the verbal consent for the telehealth visit. Index Surgery Date of Surgery: 03/26/2022 Surgeon Attending: Jona Bermudez MD Surgical Procedure: LAPAROSCOPIC GASTRIC RESTRICTIVE SURG W/ BYPASS & CATHIE-EN-Y 150CM OR LESS Pre-surgical weight: 142 kg (313 lb) Override Index Surgery Information? No Other Bariatric Surgeries Date of Surgery Surgeon Procedure Time Since Surgery: 13 days Extra Procedures: None COMPLICATIONS DURING ADMISSION: None Operative Complications: No Complications Prior to Discharge: No COMPLICATIONS SINCE DISCHARGE?: NONE Estimated body mass index is 52.47 kg/m as calculated from the following: Height as of 03/18/22: 165.1 cm (5' 5 ). Weight as of 03/18/22: 143 kg (315 lb 4.8 oz). Grace weight: 68.5 kg (150 lb 15.1 oz) Excess weight: 73.5 kg (162 lb 0.9 oz) % of excess body weight lost: 142 kg (313 lb) (193.14% of excess weight loss) Last week, her weight is 296 lbs HISTORY: Fever/Chills, Abdominal Pain: Denies Back Pain: Denies Increased Heart Rate: Denies Bloating / Hiccups: Denies Shortness of Breath: Denies Cough / Wheezing: Denies Calf/Thigh pain or swelling: Denies Decreased Urine Output: Denies Nausea/Vomiting: Denies Diarrhea: Denies Bowel function: 1 BM every other day. Current Diet: Phase II (Full Liquids) Daily approximate Fluid intake: 64 fl oz per 24hrs Present Activity level: Activities outside of house Have you attended any Support Group? No attendance Current Medications: Current Outpatient Medications Medication Sig ursodiol (ACTIGALL) 300 mg capsule Take 1 capsule by mouth twice daily. pantoprazole DR (PROTONIX) 40 mg tablet Take 1 tablet by mouth once daily. oxyCODONE IR (ROXICODONE) 5 mg immediate release tablet Take 1 tablet by mouth every 8 hours as needed for pain. docusate sodium (COLACE) 100 mg capsule Take 1 capsule by mouth twice daily. senna (SENOKOT) 8.6 mg tab Take 1 tablet by mouth twice daily. acetaminophen (TYLENOL EXTRA STRENGTH) 500 mg tablet Take 1 tablet by mouth every 6 hours. ondansetron (ZOFRAN) 4 mg tablet Take 1 tablet by mouth every 8 hours as needed for nausea/vomiting. cholecalciferol, Vitamin D3, (VITAMIN D3) 1,250 mcg (50,000 unit) cap capsule Take 1 capsule by mouth one time a week. FLUoxetine HCl (PROZAC) 40 mg capsule Take 40 mg by mouth once daily. No current facility-administered medications for this visit. Discontinued Medications: There are no discontinued medications. Medications with dosage changes this visit: Told to start MV, pepcid and actigal REVIEW OF SYSTEMS: CONSTITUTIONAL: Patient denies fevers, chills, sweats and weight changes. EYES: Patient denies any visual symptoms. EARS, NOSE, AND THROAT: No difficulties with hearing. No symptoms of rhinitis or sore throat. CARDIOVASCULAR: Patient denies chest pains, palpitations, orthopnea and paroxysmal nocturnal dyspnea. RESPIRATORY: No dyspnea on exertion, no wheezing or cough. GI: No nausea, vomiting, diarrhea, constipation, abdominal pain, hematochezia or melena. : No urinary hesitancy or dribbling. No nocturia or urinary frequency. No abnormal urethral discharge. MUSCULOSKELETAL: No myalgias or arthralgias. NEUROLOGIC: No chronic headaches, no seizures. Patient denies numbness, tingling or weakness. PSYCHIATRIC: Patient denies problems with mood disturbance. No problems with anxiety. ENDOCRINE: No excessive urination or excessive thirst. DERMATOLOGIC: Patient denies any rashes or skin changes. PHYSICAL EXAM: PHYSICAL EXAMINATION:[facility] 03/16/[facility]21 GENERAL: No apparent distress. Pt is alert and oriented x3. VITAL SIGNS: HR, BP, Temp; Normal HEENT: Head is normocephalic and atraumatic. Extraocular muscles are intact. Pupils are equal, round, and reactive to light and accommodation. Nares appeared normal. Mouth is well hydrated and without lesions. Mucous membranes are moist. Posterior pharynx clear of any exudate or lesions. NECK: Supple. No carotid bruits. No lymphadenopathy or thyromegaly. LUNGS: Clear to auscultation. HEART: Regular rate and rhythm without murmur. ABDOMEN: Soft, nontender, and nondistended. Positive bowel sounds. No hepatosplenomegaly was noted. EXTREMITIES: Without any cyanosis, clubbing, rash, lesions or edema. NEUROLOGIC: Cranial nerves II through XII are grossly intact. PSYCHIATRIC: Flat affect, but denies suicidal or homicidal ideations. SKIN: No ulceration or induration present. IMPRESSION: Normal post-OP course Assessment PLAN: Activity: OK to start exercise program Okay to return to work on Wednesday. Diet: Advance diet per Handbook, phase III diet Counseling: Vitamins, Actigall, Symptoms of stricture and Ulcer Disposition: Return 1 month to Post-op follow up/ individual office visit Labs on return: No Marleni Andres MD Advanced Laparoscopic and Bariatric Surgery documented in this encounter [facility] 03-18-2022 History of Present illness Narrative BARIATRIC SURGERY PREOPERATIVE VISIT NOTE Name: Funmilayo Conwya Medical Record: [id number] Encounter No.: [id number] Funmilayo Conway is a 31 year old female seen in Bariatric Surgery clinic today for their final preoperative assessment. WEIGHT Current Wt/BMI: Body mass index is 51.85 kg/m . Planned Procedure: Laparoscopic Cathie en-Y Gastric Bypass PAST MEDICAL HISTORY: PAST MEDICAL HISTORY Diagnosis Date Anxiety and depression Fatty liver PAST SURGICAL HISTORY: PAST SURGICAL HISTORY Procedure Laterality Date COLONOSCOPY CYST EXCISION Left 2001 EGD 2009 EXTRACTION ERUPTED TOOTH wisdom teeth RHINOPLASTY Deviated septum TONSILLECTOMY HX x 2 SOCIAL HISTORY: Social History Tobacco Use Smoking status: Never Smokeless tobacco: Never Vaping Use Vaping Use: Never used Substance Use Topics Alcohol use: Not Currently Comment: Not weekly Drug use: Never ALLERGIES: ALLERGIES Allergen Reactions Animal Dander Cough, Itching, Rash, Other: See Comments Dust Other: See Comments Mildew Other: See Comments Mold Cough, Other: See Comments MEDICATIONS: Prior to Admission Medications: azithromycin (ZITHROMAX) 250 mg tablet Take by mouth as directed. TAKE 2 TABLETS BY MOUTH TODAY, THEN TAKE 1 TABLET DAILY FOR 4 DAYS (Patient not taking: Reported on 03/18/2022) dexAMETHasone (DECADRON) 6 mg tablet Take 6 mg by mouth once daily. (Patient not taking: Reported on 03/18/2022) fluconazole (DIFLUCAN) 150 mg tablet Take 1 tablet by mouth. (Patient not taking: Reported on 03/18/2022) levoFLOXacin (LEVAQUIN) 750 mg tablet Take 750 mg by mouth once daily. (Patient not taking: Reported on 03/18/2022) LORazepam (ATIVAN) 0.5 mg Take 1 tablet by mouth. predniSONE (DELTASONE) 20 mg tablet Take 60 mg by mouth once daily. (Patient not taking: Reported on 03/18/2022) methylPREDNISolone (MEDROL) 4 mg Take by mouth. (Patient not taking: Reported on 03/18/2022) cholecalciferol, Vitamin D3, (VITAMIN D3) 1,250 mcg (50,000 unit) cap capsule Take 1 capsule by mouth one time a week. (Patient not taking: Reported on 03/18/2022) FLUoxetine HCl (PROZAC) 40 mg capsule Take 40 mg by mouth once daily. VISIT NOTE This is the preoperative visit for Ms. Funmilayo Conway. In brief, she is a pt with class III obesity and a BMI of 52. She has PSH of a previous CS. She has NAFLD and PCOS. The plan is for a LRYGB in 03/26 This patient was seen in clinic today to obtain informed consent, to discuss the details of their upcoming operation including the appropriate expectations for perioperative and postoperative care. In addition, preoperative and postoperative relevant prescriptions were provided and explained during this clinic visit. The consent discussion included the risks, benefits and anticipated outcomes of the procedure, the risks and benefits of the alternatives to the procedure, and the roles and tasks of the personnel to be involved. The patient had an opportunity to ask additional questions that were answered. The patient expressed that they understood. A consent form was signed today.I spent a total of 25 minutes on the date of the service which included preparing to see the patient, [id number] patient care, completing clinical documentation, obtaining and/or reviewing separately obtained history, counseling and educating the patient/family/caregiver, and ordering medications, tests, or procedures. Prescriptions were explained and provided to the patient. Jona Bermudez MD Advanced Laparoscopic and Bariatric Surgery documented in this encounter [facility] 03-18-2022 Instructions Kwame Rodriguez APRN.EDUCATIONAL AUDIOLOGIST - 03/18/2022 2:08 PM EDT PATIENT PREOPERATIVE INSTRUCTIONS Jerardo Johns* has scheduled you for your procedure at this surgery center: [facility] Scheduling Office: [phone] --[address] [place] [address]. Please read below carefully for your personalized instructions. Dietary Restrictions: - please follow dietary restriction from our surgeon's office. Medications: Unless instructed differently below, stay on all of your medications until your surgery. Approved medications to take the morning of surgery with a sip of water: ATIVAN If you start any new medications after today's visit, please contact the surgeon's office. Blood Thinning Medications: - Stop NSAIDS (Ibuprofen, Advil, Aleve, Motrin, Celebrex, Mobic, etc.) 7 days before surgery, as directed by your surgeon. - Stop Aspirin 7 days before surgery, as directed by your surgeon. - Stop Vitamin E, ALL multi-vitamins, herbals and dietary supplements 7 days before surgery. - You may take Tylenol (Acetaminophen) or any of your pain medications that do not contain aspirin or NSAIDS as needed. Important Reminders: - Candy, mints, and tobacco products are NOT permitted the morning of surgery. - Hearing aids, dentures and glasses may be worn the morning of surgery. - NO jewelry, body piercings, makeup, hairpins or contacts are to be worn the day of surgery. If you develop symptoms such as a fever, cold, or flu, or have other changes to your health within TWO DAYS of scheduled surgery or the morning of surgery, please contact the surgery center above. Personal Belongings: -Please have photo ID and insurance cards. -If you do not have a copy of advance directives on file with us, please bring a copy with you on the day of surgery. - Leave ALL valuables and money at home or with family members. For Outpatient Procedures: - YOU MUST HAVE A RESPONSIBLE WAGON WINDER TAKE YOU HOME. A CIGARETTE FILTER INSPECTOR OR ASSISTANT PASSENGER LOCOMOTIVE ENGINEER CANNOT BE MADE A RESPONSIBLE WAGON WINDER. - We recommend that a responsible person stays with you overnight to take care of you. - You cannot stay in a hotel alone after outpatient surgery. You will not be permitted to have your surgery, if you do not have someone to take care of you. Arrival Time for Surgery: - To obtain your arrival time for surgery, call your physician's office the day before your surgery. - If your surgery is scheduled for Wednesday, call the Wednesday before. Your surgeon s manufacturing scheduler will tell you what time to call the office. - If you have not reached the departmental manufacturing scheduler by 5 P.M., call [phone] after 5 P.M. the day before your surgery. Please be aware that emergency situations arise, which may delay or change your surgical time. If this happens, we will notify you as soon as possible and regret any inconvenience. If you already have an Advance Directive, please fax a copy to [phone] or email to for it to be added to your chart. If you do not have an Advance Directive, you can find the appropriate form and more information at [email or web address]. We recommend that you complete the Advance Directive form found on the website and bring it with you the day of your surgery. It can be witnessed and scanned into your chart that day. Kwame Rodriguez APRN.JOSE documented in this encounter [facility] 03-18-2022 History and physical note HISTORY AND PHYSICAL EXAMINATION SERVICE DATE: 03/18/2022 SERVICE TIME: 1:59 PM PRIMARY CARE PHYSICIAN: Khoi Byrd MD, MD REASON FOR VISIT: Funmilayo Conway is a 31 year old female who is scheduled for LAPAROSCOPIC GASTRIC RESTRICTIVE SURG W/ BYPASS & CATHIE-EN-Y 150CM OR LESS at the request of Dr. Jona Bermudez for consultation. My final recommendation will be communicated back to the requesting physician by way of shared medical record or letter. The patient has the following: ACTIVE PROBLEM LIST Morbidly Obese (Hcc) Fatty Liver Anxiety and Depression Subjective CHIEF COMPLAINT: Pre-Op Evaluation HPI: Funmilayo Conway is a 31 year old female with history morbid obesity. Most recent BMI is 52.47. Scheduled for the above surgery for management. She presents to [facility] today for preop exam. Denies fevers, chills, nausea, vomiting, abdominal pain, chest pain, and SOB. Patient is scheduled for the above procedure on 03/26/2022. PAST MEDICAL HISTORY Diagnosis Date Anxiety and depression Fatty liver PAST SURGICAL HISTORY Procedure Laterality Date COLONOSCOPY CYST EXCISION Left 2001 EGD 2008 EXTRACTION ERUPTED TOOTH wisdom teeth RHINOPLASTY Deviated septum TONSILLECTOMY HX x 2 FAMILY HISTORY Problem Relation Age of Onset No Known Problems Father No Known Problems Mother Anesthesia Problems No Family History SOCIAL HISTORY: Social History Tobacco Use Smoking status: Never Smokeless tobacco: Never Vaping Use Vaping Use: Never used Substance Use Topics Alcohol use: Not Currently Comment: Not weekly Drug use: Never Prior to Admission medications as of 03/18/22 1411 Medication Sig Last Dose Taking LORazepam (ATIVAN) 0.5 mg Take 1 tablet by mouth. Taking Yes FLUoxetine HCl (PROZAC) 40 mg capsule Take 40 mg by mouth once daily. Taking Yes azithromycin (ZITHROMAX) 250 mg tablet Take by mouth as directed. TAKE 2 TABLETS BY MOUTH TODAY, THEN TAKE 1 TABLET DAILY FOR 4 DAYS Patient not taking: Reported on 03/18/2022 Not Taking dexAMETHasone (DECADRON) 6 mg tablet Take 6 mg by mouth once daily. Patient not taking: Reported on 03/18/2022 Not Taking fluconazole (DIFLUCAN) 150 mg tablet Take 1 tablet by mouth. Patient not taking: Reported on 03/18/2022 Not Taking levoFLOXacin (LEVAQUIN) 750 mg tablet Take 750 mg by mouth once daily. Patient not taking: Reported on 03/18/2022 Not Taking predniSONE (DELTASONE) 20 mg tablet Take 60 mg by mouth once daily. Patient not taking: Reported on 03/18/2022 Not Taking methylPREDNISolone (MEDROL) 4 mg Take by mouth. Patient not taking: Reported on 03/18/2022 Not Taking cholecalciferol, Vitamin D3, (VITAMIN D3) 1,250 mcg (50,000 unit) cap capsule Take 1 capsule by mouth one time a week. Patient not taking: Reported on 03/18/2022 Not Taking No medication comments found. ALLERGIES Allergen Reactions Animal Dander Cough, Itching, Rash, Other: See Comments Dust Other: See Comments Mildew Other: See Comments Mold Cough, Other: See Comments COVID VACCINATION STATUS: Fully vaccinated REVIEW OF SYSTEMS: General: No weight loss, malaise or fevers. Neuro: No history of TIA's, stroke, CONTRACTS ATTORNEY tumor, impaired sensorium, hemiplegia, paraplegia or quadraplegia. No neurological symptoms or problems. Respiratory: No history of current cough or dyspnea, or pneumonia in the past 6 weeks. No history of respiratory/pulmonary symptoms or problems. Cardiovascular: No history of HTN requiring medication, no history of angina, CHF, [place], cardiac surgery or stents. Denies rest pain, gangrene or revascularization/amputation for PVD. No history of cardiovascular symptoms or problems. GI: Positive for fatty liver, Negative for GERD, PUD, Heartburn, Nausea, Vomiting, Abdominal pain, Difficulty swallowing, GI bleed < 30 days, Esophageal varices < 6 months, Hepatitis, Liver disease, Ascites, ETOH > 2 drinks / day, Pancreatitis, Inflammatory bowel disease, IBS, Colon cancer, Rectal cancer : No history of dysuria, frequency or incontinence,, stones or chronic kidney disease MILITARY SOURCE OPERATIONS SPECIALIST: Negative for abnormal vaginal bleeding, abnormal vaginal discharge. : Patient's last menstrual period was 03/16/2021. Endocrine: No history of diabetes. Has not taken steroids within the past 30 days. No history of endocrinological symptoms or problems. Hematology: No history of bleeding or clotting disorder. Pt is not taking anti-coagulation or platelet medications. No history of hematological symptoms or problems. Oncology: No history of CA metastasis, chemo within 30 days, or radiotherapy within 90 days. Has not lost 10% of body wt in 6 months. No history of oncological symptoms or problems. Psych: Anxiety, Depression on Ativan but taken in the past year. Musculoskeletal: Negative for joint pain or swelling, back pain or muscle pain. Skin: Negative for lesions, rash and itching. Objective PHYSICAL EXAM: VITALS: BP 133/81 Pulse 88 Temp (Src) 97.4 (Temporal) Ht 5' 5 (1.65m) Wt 315 lb 4.8 oz (143.0kg) SpO2 97% LMP 03/16/2021 BMI 52.47 kg/(m^2). General: Alert and oriented Skin: Normal color, no rash, no lesions. HEENT: EOM, pupils equal, round and reactive. Cardiovascular: Normal S1 & S2, no rubs, murmurs or gallops. No JVD. Pulse regular. Lungs: Normal breath sounds, no wheezes or crackles. Abdomen: Soft, non-tender, no rigidity. Extremities: No deformity, no edema or tenderness, no joint swelling or clubbing. Neurological: Normal cognition and motor skills. Pulses: Radial pulses; left 2+ / right 2+. Diagnostic tests reviewed for today's visit: Lab Value Units Date High Low HB 14.5 g/dL 03/18/2022 15.5 11.5 HCT 43.0 % 03/18/2022 46.0 36.0 WBC 8.26 k/uL 03/18/2022 11.00 3.70 PLT 256 k/uL 03/18/2022 400 150 NA 137 mmol/L 12/01/2021 144 136 K 4.5 mmol/L 12/01/2021 5.1 3.7 GLUC 112 mg/dL 12/01/2021 99 74 BUN 12 mg/dL 12/01/2021 21 7 CREAT 0.57 mg/dL 12/01/2021 0.96 0.58 PTSEC No results within date range. INR No results within date range. APTT No results within date range. ALT 21 U/L 12/01/2021 38 7 AST 18 U/L 12/01/2021 35 13 TBILI 0.3 mg/dL 12/01/2021 1.3 0.2 TSH 3.170 mIU/L 12/01/2021 4.200 0.270 Lab Value Units Date High Low HCGQT No results within date range. UHCG No results within date range. HCG, BODY* No results within date range. Lab Value Units Date High Low ABORHD No results within date range. ABSCREEN No results within date range. Hemoglobin A1C (%) Date Value 12/01/2021 5.4 Most recent EKG: Diagnosis: NORMAL SINUS RHYTHM NORMAL ECG Confirmed by DANNY BRIGHT DO ([id number]) on 12/13/2021 2:18:52 PM Most recent XR CHEST 2V FRONTAL/LAT IMPRESSION: No acute radiographic abnormality. This examination was interpreted and the report reviewed and electronically signed by: KOMAL VINES MD on Nov 28 2021 1:33PM EST Most recent US ABD RT UPPER QUADRANT IMPRESSION: Diffuse hepatic steatosis. No biliary ductal dilatation. The gallbladder is unremarkable. Dictated by : CJ QUINTERO MD This examination was interpreted and the report reviewed and electronically signed by: CJ QUINTERO MD on Nov 28 2021 2:21PM EST Assessment/Plan Anxiety and depression Assessment: managed with Ativan. METS: Walk indoors, such as around the house (1.75 METs) Walk a block or two on level ground (2.75 METs) Climb a flight of stairs or walk up a hill (5.50 METs) Patient denies any chest pain or undue shortness of breath with the above physical activity. ASA Class: 3 ANESTHESIA FINDINGS: Intubation History: No history of difficult intubation Significant Anesthesia Considerations: Difficult IV/Vein Access: a times Airway Exam: General: Morbid obesity Mallampati Score is CLASS II ULBT: Class I - Lower incisors can bite the upper lip above the bhavesh line Neck: Normal appearance and function, Distance from hyoid to mentum during neck extension is at least 3 finger breaths Mouth: Normal tongue size and Mouth opening greater than 2 finger breaths Dentition: Intact Airway History: No history of difficult intubation Sleep Apnea Probability Snores loudly: Yes Tired, fatigued or sleepy in daytime: Yes Stops breathing or choking/gasping during sleep: No High blood pressure: No Sleep Apnea Probability Score 11/12/2021 Sleep Apnea Screen V2 25.93 (Sleep study not recommended) PLAN This patient is optimally prepared for surgery pending LABS. CONSULTS: Patient does not require consults for optimization at this time. The Following Tests/Procedures Have Been Initiated: Planned Anesthetic: Per anesthesia choice Instructions Given to Patient: Instructions located in the after visit summary. Patient given verbal and written preop instructions and voices comprehension and compliance. This document has been created with use of voice recognition technology. It may contain inaccuracies, misspellings, inaccurate syntax or word sense that escaped review. SIGNATURE: Kwame Rodriguez APRN.DNP PATIENT NAME: Funmilayo Conway DATE: March 18, 2022 TIME: 1:59 PM documented in this encounter [facility] 03-13-2022 Miscellaneous Notes BMI SPECIALTY CARE COORDINATION SURGERY PRE-OP EDUCATION NOTE AMBULATORY PATIENT EDUCATION NOTE TOPIC: SURVIVAL SKILLS: Complication Prevention Diet Pain Management Safety Precautions Wound Care LIFE STYLE CHANGES: Diet, Exercise, and Safety Precautions HEALTH PROMOTION: Complication prevention Diet Exercise Follow up management Self management VTE Prevention Measure Mechanical READINESS TO LEARN COGNITIVE ABILITY: Alert and oriented MOTIVATION TO LEARN: Eager FAMILY SUPPORT: Unable to assess - Family not present INSTRUCTION PROVIDED TO: Patient PATIENT LEARNS BEST BY: Individual Instruction Written Instruction - Hand-outs Verbal Instruction Multiple Methods FACTORS AFFECTING LEARNING: None PHYSICAL LIMITATIONS AFFECTING LEARNING: None LEARNING RESPONSE DIAGNOSIS: Morbid Obesity METHOD OF INSTRUCTION: Teach Back Pre- and post-op Diet; s/s dehydration PATIENT / FAMILY RESPONSE: Information received as demonstrated by interest and questions FOLLOW-UP PLAN: Reinforce - Repeat previous content SUPPLEMENTAL MATERIAL: Bariatric Surgery Post Operative Care REFERRAL (RECOMMENDATION): None Surgery Pre-Op Education Note in Nurse Visit Education video modules viewed by the patient: Yes Postop prescriptions provided to the patient: will be provided inpatient Postop Surgeon Visit scheduled: Yes On-Call & Clinic Phone Number given to the Patient: Yes Pre surgery checklist reviewed: Yes Patient Instructions for the Liquid Diet: Day Before Surgery - Liquid Diet Instruction Review 1. Last Protein shake should be before 6 pm. 2. It is important that you stay hydrated - 64 ounces of fluid per day. 3. Drink a 28-32 ounce bottle of a regular (not sugar free) sport drink (Gatorade, Powerade, etc.) the night prior to surgery. If the sport drinks aren t tolerable, may substitute with no sugar added - no pulp juice - apple, cranberry, lemonade, white grape or orange. Day of Surgery Clear Liquid Diet Drink 12-20 ounces of a regular sport drink (or juice as above) stop liquids 2 hours before scheduled arrival time. Other Instructions Reviewed: Skin Preparation: Hibiclens bottle & instructions, Erika, wound care, vitamin & nutrients, activity restrictions post op, discharge instructions & surgical guide, incentive spirometry;diet progression-yousif phase I & II & 2wk liquid diet prior to surgery, activity level & pt responsibility during hospitalization. Sleep Apnea: Even if you don't have the diagnosis of sleep apnea, the pain medicine you receive and your weight put you at risk for breathing complications and apnea after surgery. After your operation, RT will assess you in the recovery room and again on the altamirano. They will most likely ask you to wear a face mask that will deliver oxygen using some mild positive pressure. The machine will automatically adjust the amount of pressure you receive. Wearing the mask does not mean that you will need to go home with it or have the diagnosis of sleep apnea. It will only be used after surgery to maintain your oxygen levels. Do not take pain medication three hours before bedtime as it may cause breathing difficulty. If you are having pain at bedtime you may take two Extra Strength Tylenol. Jagruti Escobar RN documented in this encounter [facility] 03-10-[address] - 03/10/2022 3:26 PM EDT Nutrition Intervention: Modify type and amount of intake at meals and snacks Practice these: * Eat in this order protein first, vegetable and fruit second and whole grain carbohydrates last. * Separate eating and drinking by 30 minutes * Chew your food 20-30x per bite * Meals should last 30 minutes. 2. Fluids: 64 oz per day minimum No carbonation, no caffeine, no calories, no alcohol. Water, sugar free drink mix, decaf coffee and tea 3. Physical activity: 150-250 minutes cardio/aerobic activity/week and 10-20 minutes strength/resistance training 2x per week 4. Protein: 85 g per day. Lean meats, fish, low fat dairy - cottage cheese, Paraguayan yogurt, light yogurt, cheese, ricotta cheese, nuts, peanut butter, beans/legumes. Eat protein first at all meals. 5. Protein shakes: < 200 calories, < 30 g carbohydrates and > 15 g protein 6. Vitamins : Begin looking into Vitamins and Minerals (page 49 of your Bariatric Guide to Surgery Book) - OK to use a bariatric multivitamin: - Bariatric Fusion: multiple options- look on website www.bariatricfusion.com - Celebrate: multiple options- look on website Www.[email or web address] - [employer]: 1 Multivitamin and Calcium Citrate twice a day (total of 3100-8245 mg/day) * take calcium citrate separately from Multivitamin with iron at least 2 hours apart and 4 hours apart from additional calcium [email or web address].com - Bariatric Choice: 4 complete multivitamins (chewable) per day Www.[email or web address] - Bariatric Advantage: 2 Multivitamins and 3 Calcium Citrate Chewable per day * take calcium citrate separately from Multivitamin with iron at least 2 hours apart and 4 hours apart from additional calcium [email or web address] B complex with at least 75 mg Thiamine during the 2 weeks. 7. Start the full liquid diet 2 weeks prior to surgery. No solid food. 64 oz per day fluid - 5 Atkins shakes per day 8. Advance your diet as tolerated after surgery. Phase 1-Clear liquid (in hospital only); Phase 2 Full liquids (protein shakes limited to 1/4c per meal, 1c fluids between meals), Phase 3 soft/pureed; high protein foods; Phase 4 high protein foods with added vegetables Begin after starting solid foods: Vitamin/minerals: (2) children's chewable Multivitamin complete (morning) OR (2) adult Centrum Chewable complete multivitamin, Iron supplement 18mg (morning), Vit B12 500 mcg sublingual pill or liquid (morning), and calcium citrate w/Vit D 600 mg at lunch and 600 mg at dinner. Additional 2000 IU Vit D3 daily, B complex with 75-100 mg Thiamine Nutrition Monitoring & Evaluation:Follow pre op diet and fluid guidelines Criteria: weight check Need for Follow up: 2 weeks post op documented in this encounter [facility] 03-10-2022 History of Present illness Narrative This visit was performed virtually due to the COVID-19 epidemic as an effort to protect patients and minimize exposure. Consent from patient received to conduct visit virtually. This Team Access Model visit is a virtual GROUP encounter. It required patient-provider interaction for the medical decision making as documented below. Patient reports weight (as measured by home scale) of 317 pounds. TOPIC: LIFE STYLE CHANGES: Pre-op weight loss surgery (RYGB): Diet and Exercise PROGRESS: Nutrition Intervention (date of last encounter 12/01/21): 1. Practice these: * Eat in this order protein first, vegetable and fruit second and whole grain carbohydrates last. * Separate eating and drinking by 30 minutes * Chew your food 20-30x per bite * Meals should last 30 minutes. 2. Fluids: 64 oz per day minimum No carbonation, no caffeine, no calories, no alcohol. Water, sugar free drink mix, decaf coffee and tea 3. Exercise: 150-250 minutes cardio/aerobic activity/week and 10-20 minutes strength/resistance training 2x per week 4. Protein: 85 g per day. Lean meats, fish, low fat dairy - cottage cheese, Paraguayan yogurt, light yogurt, cheese, ricotta cheese, nuts, peanut butter, beans/legumes. Eat protein first at all meals. 5. Protein shakes: < 200 calories, < 30 g carbohydrates and > 15 g protein 6. Vitamins : Begin looking into Vitamins and Minerals (page 49 of your Bariatric Guide to Surgery Book) - OK to use a bariatric multivitamin: - Bariatric Fusion: multiple options- look on website www.bariatricfusion.com - Celebrate: multiple options- look on website Www.Medical [email or web address] - [employer]: 1 Multivitamin and Calcium Citrate twice a day (total of 8081-9253 mg/day) * take calcium citrate separately from Multivitamin with iron at least 2 hours apart and 4 hours apart from additional calcium www.[email or web address]areELIKE.[email or web address] Systems - Bariatric Choice: 4 complete multivitamins (chewables) per day Www.[email or web address] - Bariatric Advantage: 2 Multivitamins and 3 Calcium Citrate Chewables per day * take calcium citrate separately from Multivitamin with iron at least 2 hours apart and 4 hours apart from additional calcium www.bariatricadVivoText.[employer] B complex with at least 75 mg Thiamine during the 2 weeks. 7. Start the full liquid diet 2 weeks prior to surgery. No solid food. 64 oz per day fluid - 4 1/2 (20 gram) Equate shakes per day 8. Advance your diet as tolerated after surgery. Phase 1-Clear liquid (in hospital only); Phase 2 Full liquids (protein shakes limited to 1/4c per meal, 1c fluids between meals), Phase 3 soft/pureed; high protein foods; Phase 4 high protein foods with added vegetables Begin after starting solid foods: Vitamin/minerals: (2) children's chewable Multivitamin complete (morning) OR (2) adult Centrum Chewable complete multivitamin, Iron supplement 18mg (morning), Vit B12 500 mcg sublingual pill or liquid (morning), and calcium citrate w/Vit D 600 mg at lunch and 600 mg at dinner. Additional 2000 IU Vit D3 daily, B complex with 75-100 mg Thiamine Preop weight goal: 319# CHANGES IN TREATMENT: Patient met goal(s): Yes Diagnosis: has not changed. Allergies: Animal Dander, Dust, Mildew, and Mold Medications: Current Outpatient Medications Medication Sig Dispense Refill cholecalciferol, Vitamin D3, (VITAMIN D3) 1,250 mcg (50,000 unit) cap capsule Take 1 capsule by mouth one time a week. 12 capsule 1 FLUoxetine HCl (PROZAC) 40 mg capsule Take 40 mg by mouth once daily. No current facility-administered medications for this visit. (currently taking) ; Anthropometrics: Height: Last 1 Encounter Ht Readings: Date: Ht: 12/01/2021 167.6 cm (5' 6 ) Current weight: Last 1 Encounter Wt Readings: Date: Wt: 12/01/2021 149.7 kg (330 lb) There is no height or weight on file to calculate BMI. Resting Metabolic Rate: 2224 Malnutrition Screening Significant unintentional weight loss? No Eating less than 75% of usual intake for more than 2 weeks? No Nutritional status: Educational materials provided: none this visit READINESS TO LEARN Cognitive ability: Alert and oriented Motivation to learn: Interested Family support: Unable to assess - Family not present Instruction provided to: Patient Patient learns best by: Multiple Methods Factors affecting learning: None Physical limitations affecting learning: None Likelihood of Adherence: High Patient participated in preop bariatric surgery shared nutrition appointment. Patient participated actively in group. Patient planned for RYGB, using Atkins shakes for pre-op diet. Patient taking appropriate B complex. Beverages include water and water with SF packets. PA include walking. Nutrition Diagnosis: Overweight/obesity, related to, food/nutrition - related knowledge deficit, as evidenced by BMI above normative standard for age and gender. Nutrition Intervention: Modify type and amount of intake at meals and snacks Practice these: * Eat in this order protein first, vegetable and fruit second and whole grain carbohydrates last. * Separate eating and drinking by 30 minutes * Chew your food 20-30x per bite * Meals should last 30 minutes. 2. Fluids: 64 oz per day minimum No carbonation, no caffeine, no calories, no alcohol. Water, sugar free drink mix, decaf coffee and tea 3. Physical activity: 150-250 minutes cardio/aerobic activity/week and 10-20 minutes strength/resistance training 2x per week 4. Protein: 85 g per day. Lean meats, fish, low fat dairy - cottage cheese, Paraguayan yogurt, light yogurt, cheese, ricotta cheese, nuts, peanut butter, beans/legumes. Eat protein first at all meals. 5. Protein shakes: < 200 calories, < 30 g carbohydrates and > 15 g protein 6. Vitamins : Begin looking into Vitamins and Minerals (page 49 of your Bariatric Guide to Surgery Book) - OK to use a bariatric multivitamin: - Bariatric Fusion: multiple options- look on website www.bariatricfusion.com - Celebrate: multiple options- look on website Www.celebratevitamins.com - [employer]: 1 Multivitamin and Calcium Citrate twice a day (total of 4912-8087 mg/day) * take calcium citrate separately from Multivitamin with iron at least 2 hours apart and 4 hours apart from additional calcium www.[email or web address] Systems - Bariatric Choice: 4 complete multivitamins (chewable) per day Www.bariatricchoice.com - Bariatric Advantage: 2 Multivitamins and 3 Calcium Citrate Chewable per day * take calcium citrate separately from Multivitamin with iron at least 2 hours apart and 4 hours apart from additional calcium www.bariatricadCelsenseage.[employer] B complex with at least 75 mg Thiamine during the 2 weeks. 7. Start the full liquid diet 2 weeks prior to surgery. No solid food. 64 oz per day fluid - 5 Atkins shakes per day 8. Advance your diet as tolerated after surgery. Phase 1-Clear liquid (in hospital only); Phase 2 Full liquids (protein shakes limited to 1/4c per meal, 1c fluids between meals), Phase 3 soft/pureed; high protein foods; Phase 4 high protein foods with added vegetables Begin after starting solid foods: Vitamin/minerals: (2) children's chewable Multivitamin complete (morning) OR (2) adult Centrum Chewable complete multivitamin, Iron supplement 18mg (morning), Vit B12 500 mcg sublingual pill or liquid (morning), and calcium citrate w/Vit D 600 mg at lunch and 600 mg at dinner. Additional 2000 IU Vit D3 daily, B complex with 75-100 mg Thiamine Nutrition Monitoring & Evaluation:Follow pre op diet and fluid guidelines Criteria: weight check Need for Follow up: 2 weeks post op Appointment Start Time: 12:45 pm Appointment End Time: 1:42 Time Spent on Consult: 57 minutes - Group Signed by: Francoise Hardwick RDN, JOSE, SARAH documented in this encounter [facility] 12-23-2021 Miscellaneous Notes The following approved medication requests have been transmitted electronically. Signed Prescriptions Disp Refills cholecalciferol, Vitamin D3, (VITAMIN D3) 1,250 mcg (50,000 unit) cap capsule 12 capsule 1 Sig: Take 1 capsule by mouth one time a week. Authorizing Provider: DANNY CRISTINA The recent labs reveal a low vitamin D level. She is going to need to start vitamin D3 50,000 international units weekly x12 weeks. Should have a level checked in 3 months. The labs also reveal an elevated total and LDL cholesterol. Suggest repeating the lipid panel in 6 months. Labs released to the patient on my chart. Danny Cristina DO documented in this encounter [facility] 12-03-2021 Nurse Note EKG completed and reviewed; documented in this encounter [facility] 12-01-2021 History of Present illness Narrative This visit was performed virtually due to the COVID-19 epidemic as an effort to protect patients and minimize exposure. Consent from patient received to conduct visit virtually. This Team Access Model visit is a virtual GROUP encounter. It required patient-provider interaction for the medical decision making as documented below. Patient reports weight (as measured by home scale) of 330 pounds. TOPIC: LIFE STYLE CHANGES: Pre-op weight loss surgery (RYGB-Dr. Cormier): Diet and Exercise PROGRESS: Nutrition Intervention (date of last encounter 10/22/2021): 1. Read Nutritional Guidelines Section of Your Guide to Surgery by next session 2. Do not skip meals. 3. Use protein shake 1x per day to replace any skipped meals or for breakfast 4. Use the Healthy Plate Method of portion control for lunch and dinner 4 oz lean meat (fish, chicken, pork tenderloin, turkey, seafood, eggs/cheese) 1/2 plate non starchy vegetables (salad, greens, cabbage, spinach, brussels sprouts, broccoli, carrots, celery, peppers, green beans, cauliflower) 1 cup starch/starchy vegetables (corn, peas, beans, winter squash, sweet potato, brown rice, whole grain pasta, whole grain bread products, quinoa) 5. Physical activity: continue walks and add in some strength training with a goal of 150+ minutes exercise each week 6. Drink 64 ounces per day water. Fluids should follow these guidelines: No carbonation, no caffeine, no calories, no alcohol. 7. Practice these mindful eating techniques: Eat slowly by taking small bites and chewing thoroughly Eat protein first, vegetables second, and starches last Separate fluids from foods for 30 minutes before and after each meal/snack 8. Research these vitamin options for use 3 weeks post operatively: - Bariatric Fusion: 4 Complete Chewable Multivitamins per day (2 in the AM, 2 in the PM) www.bariatricfusion.[employer] - [employer]: 1 Bariatric Multivitamin and Calcium Citrate (total of 0028-9793 mg/day) * take calcium citrate separately from Multivitamin with iron at least 2 hours apart and 4 hours apart from additional calcium www.[employer] - Bariatric Choice: 4 Complete Multivitamins (chewables) per day Www.[email or web address] Development.[employer] - Bariatric Advantage: 2 Multivitamins and 3 Calcium Citrate Chewables per day * take calcium citrate separately from Multivitamin with iron at least 2 hours apart and 4 hours apart from additional calcium Www.bariatricadvantage.[email or web address] Pre-op goal weight: 319 pounds Protein needs: 85 gm per day CHANGES IN TREATMENT: Patient met goal(s): Yes Diagnosis: has not changed. Allergies: Animal Dander, Dust, Mildew, and Mold Medications: Current Outpatient Medications Medication Sig Dispense Refill FLUoxetine HCl (PROZAC) 40 mg capsule Take 40 mg by mouth once daily. No current facility-administered medications for this visit. (currently taking) ; Anthropometrics: Height: Last 1 Encounter Ht Readings: Date: Ht: 11/12/2021 167.6 cm (5' 6 ) Current weight: Last 1 Encounter Wt Readings: Date: Wt: 11/12/2021 149 kg (328 lb 6.4 oz) Body mass index is 53.26 kg/m . Resting Metabolic Rate: 2217 Malnutrition Screening Significant unintentional weight loss? No Eating less than 75% of usual intake for more than 2 weeks? No Nutritional status: Educational materials provided: none this visit READINESS TO LEARN Cognitive ability: Alert and oriented Motivation to learn: Eager Interested Family support: Unable to assess - Family not present Instruction provided to: Patient Patient learns best by: Multiple Methods Factors affecting learning: None Physical limitations affecting learning: None Likelihood of Adherence: High Patient participated in preop bariatric surgery shared nutrition appointment. Patient participated actively in group. Patient reports weight stability since last visit; overall intake includes 3-5 meals with Equate shake used as breakfast meal replacement. Meals are balanced with healthy plate followed and proteins (chicken/turkey, pork) prepared in healthy manner. Fluids include adequate volume of water with occasional tea to help with headaches; she acknowledged need to eliminate as she prepares for surgery. Physical activity includes walking 30-60 minutes most days of the week and using her daughter as weight resistance when exercising. At end of session, patient is able to identify pre op full liquid diet as well as all post op vitamins and diet phases. Anticipate good adherence to goals. The patient has been thoroughly evaluated and educated on good dietary practices and is capable of following these guidelines pre- and post surgically. From nutrition standpoint, the patient is cleared for weight loss surgery. If the patient desires, she may continue to follow up with the dietitian on a monthly basis until all surgical requirements are met. Nutrition Diagnosis: Overweight/obesity, related to, decreased energy needs, as evidenced by BMI above normative standard for age and gender. Nutrition Intervention: Modify type and amount of intake at meals and snacks 1. Practice these: * Eat in this order protein first, vegetable and fruit second and whole grain carbohydrates last. * Separate eating and drinking by 30 minutes * Chew your food 20-30x per bite * Meals should last 30 minutes. 2. Fluids: 64 oz per day minimum No carbonation, no caffeine, no calories, no alcohol. Water, sugar free drink mix, decaf coffee and tea 3. Exercise: 150-250 minutes cardio/aerobic activity/week and 10-20 minutes strength/resistance training 2x per week 4. Protein: 85 g per day. Lean meats, fish, low fat dairy - cottage cheese, Paraguayan yogurt, light yogurt, cheese, ricotta cheese, nuts, peanut butter, beans/legumes. Eat protein first at all meals. 5. Protein shakes: < 200 calories, < 30 g carbohydrates and > 15 g protein 6. Vitamins : Begin looking into Vitamins and Minerals (page 49 of your Bariatric Guide to Surgery Book) - OK to use a bariatric multivitamin: - Bariatric Fusion: multiple options- look on website www.bariatricfusion.com - Celebrate: multiple options- look on website Www.celebratevitamins.com - [employer]: 1 Multivitamin and Calcium Citrate twice a day (total of 6282-5631 mg/day) * take calcium citrate separately from Multivitamin with iron at least 2 hours apart and 4 hours apart from additional calcium www.[employer] - Bariatric Choice: 4 complete multivitamins (chewables) per day Www.bariatricchoice.com - Bariatric Advantage: 2 Multivitamins and 3 Calcium Citrate Chewables per day * take calcium citrate separately from Multivitamin with iron at least 2 hours apart and 4 hours apart from additional calcium www.bariatricadvantage.[employer] B complex with at least 75 mg Thiamine during the 2 weeks. 7. Start the full liquid diet 2 weeks prior to surgery. No solid food. 64 oz per day fluid - 4 1/2 (20 gram) Equate shakes per day 8. Advance your diet as tolerated after surgery. Phase 1-Clear liquid (in hospital only); Phase 2 Full liquids (protein shakes limited to 1/4c per meal, 1c fluids between meals), Phase 3 soft/pureed; high protein foods; Phase 4 high protein foods with added vegetables Begin after starting solid foods: Vitamin/minerals: (2) children's chewable Multivitamin complete (morning) OR (2) adult Centrum Chewable complete multivitamin, Iron supplement 18mg (morning), Vit B12 500 mcg sublingual pill or liquid (morning), and calcium citrate w/Vit D 600 mg at lunch and 600 mg at dinner. Additional 2000 IU Vit D3 daily, B complex with 75-100 mg Thiamine Preop weight goal: 319# Nutrition Monitoring & Evaluation:1-2# weight loss per week Criteria: weight check Need for Follow up: 2 weeks pre op Appointment Start Time: 8:00 AM Appointment End Time: 8:53 AM Time Spent on Consult: 53 minutes - Group Signed by: Davida Kaur MS,RD,CSOWM,LD documented in this encounter [facility] 11-28-2021 Note HNO ID: [id number] Author: Keira Salvador RDMS, RVT Service: Radiology Author Type: Cleaning Validation Consultant Type: Progress Notes Filed: 11/28/2021 1:52 PM Note Text: Radiology Service Progress Note PATIENT NAME: Funmilayo Conway DATE OF SERVICE: November 28, 2021 TIME: 1:52 PM PATIENT IDENTITY VERIFICATION COMPLETED USING TWO (2) IDENTIFIERS: Name and Date of confirmed by patient verbally and Name and Date of confirmed by identification band. FALL SCREENING: Has the patient had 2 falls in the last year or 1 fall with injury or currently using an Ambulatory Assistive Device (Walker, Cane, Wheelchair, Crutches, etc.)? No PATIENT GENDER DATA: Female. status: : No status: NO. PATIENT RELEVANT IMPLANT DATA REVIEWED: Not Applicable RADIOLOGY DEPARTMENT: Ultrasound PERIPHERAL IV DATA: Not applicable RUQ US done SIGNED BY: Keira Salvador RDMS, RVT November 28, 2021 1:52 PM [facility] 11-28-2021 History of Present illness Narrative Radiology Service Progress Note PATIENT NAME: Funmilayo Conway DATE OF SERVICE: November 28, 2021 TIME: 1:52 PM PATIENT IDENTITY VERIFICATION COMPLETED USING TWO (2) IDENTIFIERS: Name and Date of confirmed by patient verbally and Name and Date of confirmed by identification band. FALL SCREENING: Has the patient had 2 falls in the last year or 1 fall with injury or currently using an Ambulatory Assistive Device (Walker, Cane, Wheelchair, Crutches, etc.)? No PATIENT GENDER DATA: Female. status: : No status: NO. PATIENT RELEVANT IMPLANT DATA REVIEWED: Not Applicable RADIOLOGY DEPARTMENT: Ultrasound PERIPHERAL IV DATA: Not applicable RUQ US done SIGNED BY: Keira Salvador RDMS, RVT November 28, 2021 1:52 PM documented in this encounter [facility] 11-28-2021 Note HNO ID: [id number] Author: RT Leann(R) Service: ? Author Type: Technologist Type: Progress Notes Filed: 11/28/2021 12:58 PM Note Text: Radiology Service Progress Note PATIENT NAME: Funmilayo VEGAN: [id number] DATE OF SERVICE: November 28, 2021 TIME: 12:58 PM PATIENT IDENTITY VERIFICATION COMPLETED USING TWO (2) IDENTIFIERS: Name and Date of confirmed by patient verbally and Name and Date of confirmed by identification band. FALL SCREENING: Has the patient had 2 falls in the last year or 1 fall with injury or currently using an Ambulatory Assistive Device (Walker, Cane, Wheelchair, Crutches, etc.)? No PATIENT GENDER DATA: Female. status: : No status: NO. PATIENT RELEVANT IMPLANT DATA REVIEWED: Not Applicable RADIOLOGY DEPARTMENT: General X-ray: Exam(s) Completed: Chest X-Ray PERIPHERAL IV DATA: Not applicable SIGNED BY: RT Leann(R) November 28, 2021 12:58 PM [facility] 11-28-2021 History of Present illness Narrative Radiology Service Progress Note PATIENT NAME: Funmilayo Conway DATE OF SERVICE: November 28, 2021 TIME: 12:58 PM PATIENT IDENTITY VERIFICATION COMPLETED USING TWO (2) IDENTIFIERS: Name and Date of confirmed by patient verbally and Name and Date of confirmed by identification band. FALL SCREENING: Has the patient had 2 falls in the last year or 1 fall with injury or currently using an Ambulatory Assistive Device (Walker, Cane, Wheelchair, Crutches, etc.)? No PATIENT GENDER DATA: Female. status: : No status: NO. PATIENT RELEVANT IMPLANT DATA REVIEWED: Not Applicable RADIOLOGY DEPARTMENT: General X-ray: Exam(s) Completed: Chest X-Ray PERIPHERAL IV DATA: Not applicable SIGNED BY: RT Leann(R) November 28, 2021 12:58 PM documented in this encounter [facility] 11-26-2021 History and physical note UPDATED HISTORY AND PHYSICAL EXAMINATION SERVICE DATE: 11/26/2021 SERVICE TIME: 1:10 PM PHYSICAL EXAM MUST BE COMPLETED ON ADMISSION The History and Physical (completed in the past 30 days) has been reviewed and the patient has been examined. The contents accurately reflect the patient's condition with the following additions or revisions since the H&P was completed. Examination indicates no changes. This H&P can be found in the attached. SIGNATURE: Mulugeta Salmon MD PATIENT NAME: Funmilayo Conway DATE: November 26, 2021 TIME: 1:10 PM Images from the original note were not included. HISTORY AND PHYSICAL EXAMINATION SERVICE DATE: 11/12/2021 SERVICE TIME: 3:26 PM PRIMARY CARE PHYSICIAN: No Pcp This is a virtual visit using [employer] video visit. It required patient-provider interaction for the medical decision making as documented below. REASON FOR VISIT: Funmilayo Conway is a 31 year old female who is scheduled for EGD at the request of Dr. Mulugeta Salmon for consultation. My final recommendation will be communicated back to the requesting physician by way of shared medical record or letter. Subjective The patient has the following: ACTIVE PROBLEM LIST Morbidly Obese (Hcc) Fatty Liver Anxiety and Depression COVID-19 Immunization Status COVID-19 VACCINE (Series Information) Completed 03/20/2021 Outside Immunization: SARS-CoV-2 (COVID-19) Ad26 vaccine 08/24/2020 Outside Immunization: SARS-CoV-2 (COVID-19) Ad26 vaccine 08/03/2020 Outside Immunization: SARS-CoV-2 (COVID-19) Ad26 vaccine CHIEF COMPLAINT: Pre-Op Exam HPI: 31 year old female presents with morbid obesity. Patient is preparing for bariatric surgery and is scheduled for EGD. She did have an EGD at 18 yo looking for Celiac's disease, she states this was negative. She has occasional heartburn usually related to spicy foods. She denies a diagnosis of GERD. She also denies any abdominal pain. REVIEW OF SYSTEMS: General: No weight loss, malaise or fevers. Neurological: No history of TIA's, stroke, CONTRACTS ATTORNEY tumor, impaired sensorium, hemiplegia, paraplegia or quadraplegia. No neurological symptoms or problems. Respiratory: No history of current cough or dyspnea, or pneumonia in the past 6 weeks. No history of respiratory/pulmonary symptoms or problems. Cardiovascular: No history of HTN requiring medication, no history of angina, CHF, [place], cardiac surgery or stents. Denies rest pain, gangrene or revascularization/amputation for PVD. No history of cardiovascular symptoms or problems. GI: Positive for: liver disease (Fatty liver) Negative for: dysphagia, diverticulitis, GI bleed <30 days, hepatitis, irritable bowel syndrome, inflammatory bowel disease, nausea and vomiting. : No history of dysuria, frequency or incontinence, stones or chronic kidney disease. No difficulty urinating, nocturia > 1 time per night or hematuria. MILITARY SOURCE OPERATIONS SPECIALIST: Negative for abnormal vaginal bleeding, abnormal vaginal discharge. Endocrine: No history of diabetes. Has not taken steroids within the past 30 days. No history of endocrinological symptoms or problems. Hematology: No history of bleeding or clotting disorder. Patient is not taking anti-coagulation or platelet medications. No history of hematological symptoms or problems. Oncology: No history of CA metastasis, chemo within 30 days, or radiotherapy within 90 days. No history of oncological symptoms or problems. Psych: Positive for: anxiety and depression (Stable on Rx, follows with PCP). Musculoskeletal: Negative for joint pain or swelling, back pain or muscle pain. Skin: Negative for lesions, rash and itching. PAST MEDICAL HISTORY Diagnosis Date Anxiety and depression Fatty liver PAST SURGICAL HISTORY Procedure Laterality Date COLONOSCOPY CYST EXCISION Left 2001 EGD 2009 EXTRACTION ERUPTED TOOTH wisdom teeth RHINOPLASTY Deviated septum TONSILLECTOMY HX x 2 FAMILY HISTORY Problem Relation Age of Onset No Known Problems Mother No Known Problems Father Social History Tobacco Use Smoking status: Never Smoker Smokeless tobacco: Never Used Vaping Use Vaping Use: Never used Substance Use Topics Alcohol use: Yes Comment: Not weekly Drug use: Never Prior to Admission medications as of 11/12/21 1536 Medication Sig Last Dose Taking FLUoxetine HCl (PROZAC) 40 mg capsule Take 40 mg by mouth once daily. Taking Yes No medication comments found. ALLERGIES Allergen Reactions Animal Dander Cough, Itching, Rash, Other: See Comments Dust Other: See Comments Mildew Other: See Comments Mold Cough, Other: See Comments Objective PHYSICAL EXAM: (if completed, exam performed via video enabled technology) General: alert and oriented and morbidly obese. Pertinent negatives noted - not distressed. Skin: normal color, no rash or lesions. HEENT: pupils equal round. Cardiovascular: Patient able to palpate radial pulse, denies skipped beats or pauses.. Respiratory: Breathing unlabored. Chest rise equal. No audible wheezing.. Abdomen: Not examined. Extremities: No deformity noted. Neurological: Normal cognition and gait. PAIN ASSESSMENT: VITALS: Ht 5' 6 [Patient reported[ (1.68m) Wt 328 lb 6.4 oz (149.0kg) LMP 12/20/2020 BMI 53.03 kg/(m^2). Diagnostic tests reviewed for today's visit: Lab Value Units Date High Low HB No results within date range. HCT No results within date range. WBC No results within date range. PLT No results within date range. NA No results within date range. K No results within date range. GLUC No results within date range. BUN No results within date range. CREAT No results within date range. PTSEC No results within date range. INR No results within date range. APTT No results within date range. ALT No results within date range. AST No results within date range. TBILI No results within date range. TSH No results within date range. Lab Value Units Date High Low HCGQT No results within date range. UHCG No results within date range. HCG, BODY* No results within date range. Lab Value Units Date High Low ABORHD No results within date range. ABSCREEN No results within date range. No results found for: HBA1C No results found for this or any previous visit (from the past 8760 hour(s)). No results found for this or any previous visit (from the past 37568 hour(s)). Assessment Morbidly obese (HCC) Assessment: Body mass index is 53.01 kg/m . Preparing for bariatric surgery. Scheduled for EGD. Fatty liver Assessment: Normal LFTs 12/2020. Anxiety and depression Assessment: Symptoms currently stable on Rx. Following with PCP. S[place] Activity Status Index: METS: Climb a flight of stairs or walk up a hill (5.50 METs) DASI Score: 5.5 Patient denies any chest pain or undue shortness of breath with the above physical activity. Clinical Frailty Scale: 2. Well STOP-Bang Score: Snores loudly BMI greater than 35 kg/m^2 Has a large neck Denies feeling tired, fatigued, or sleepy during the daytime Has not been observed to stop breathing or choking/gasping during sleep Denies having high blood pressure Patient 50 years old or younger Non-male patient STOP-Bang Score: 3 [id number] Score: Age: <65 Sex: female CHF history: No Hypertension history: No Stroke/TIA/thromboembolism history: No Vascular disease history: No Diabetes history: No [id number] Score: 1 ASA Class: 3 ANESTHESIA FINDINGS: Intubation History: No history of difficult intubation. No abnormal airway history Significant Anesthesia Considerations: Woke up during colonoscopy/EGD Airway History: No history of difficult airway No abnormal airway history I - PHYSICAL EVALUATION AIRWAY Tracheostomy tube not present Mallampati: III. Neck ROM: full ROM without neurological symptoms. Mouth opening: adequate. Short neck: yes. Thick neck: yes DENTAL Dental findings: missing tooth/teeth. II - ANESTHESIA PLAN ASA Score: 3 Anesthetic Plan: MAC Prepared for Surgery: optimally prepared for surgery. CONSULTS: Patient does not require consults for optimization at this time Planned Anesthetic: MAC The Following Tests/Procedures Have Been Initiated: No orders of the defined types were placed in this encounter. Instructions Given to Patient: Instructions located in the after visit summary. Patient given verbal and written preop instructions and voices comprehension and compliance. SIGNATURE: Maria T Lares APRN.CNP PATIENT NAME: Funmilayo Conway DATE: November 12, 2021 TIME: 12:50 PM PAGER/CONTACT #: documented in this encounter [facility] 11-12-2021 History and physical note Images from the original note were not included. HISTORY AND PHYSICAL EXAMINATION SERVICE DATE: 11/12/2021 SERVICE TIME: 3:26 PM PRIMARY CARE PHYSICIAN: No Pcp This is a virtual visit using [employer] video visit. It required patient-provider interaction for the medical decision making as documented below. REASON FOR VISIT: Funmilayo Conway is a 31 year old female who is scheduled for EGD at the request of Dr. Mulugeta Salmon for consultation. My final recommendation will be communicated back to the requesting physician by way of shared medical record or letter. Subjective The patient has the following: ACTIVE PROBLEM LIST Morbidly Obese (Hcc) Fatty Liver Anxiety and Depression COVID-19 Immunization Status COVID-19 VACCINE (Series Information) Completed 03/20/2021 Outside Immunization: SARS-CoV-2 (COVID-19) Ad26 vaccine 08/24/2020 Outside Immunization: SARS-CoV-2 (COVID-19) Ad26 vaccine 08/03/2020 Outside Immunization: SARS-CoV-2 (COVID-19) Ad26 vaccine CHIEF COMPLAINT: Pre-Op Exam HPI: 31 year old female presents with morbid obesity. Patient is preparing for bariatric surgery and is scheduled for EGD. She did have an EGD at 18 yo looking for Celiac's disease, she states this was negative. She has occasional heartburn usually related to spicy foods. She denies a diagnosis of GERD. She also denies any abdominal pain. REVIEW OF SYSTEMS: General: No weight loss, malaise or fevers. Neurological: No history of TIA's, stroke, CONTRACTS ATTORNEY tumor, impaired sensorium, hemiplegia, paraplegia or quadraplegia. No neurological symptoms or problems. Respiratory: No history of current cough or dyspnea, or pneumonia in the past 6 weeks. No history of respiratory/pulmonary symptoms or problems. Cardiovascular: No history of HTN requiring medication, no history of angina, CHF, [place], cardiac surgery or stents. Denies rest pain, gangrene or revascularization/amputation for PVD. No history of cardiovascular symptoms or problems. GI: Positive for: liver disease (Fatty liver) Negative for: dysphagia, diverticulitis, GI bleed <30 days, hepatitis, irritable bowel syndrome, inflammatory bowel disease, nausea and vomiting. : No history of dysuria, frequency or incontinence, stones or chronic kidney disease. No difficulty urinating, nocturia > 1 time per night or hematuria. MILITARY SOURCE OPERATIONS SPECIALIST: Negative for abnormal vaginal bleeding, abnormal vaginal discharge. Endocrine: No history of diabetes. Has not taken steroids within the past 30 days. No history of endocrinological symptoms or problems. Hematology: No history of bleeding or clotting disorder. Patient is not taking anti-coagulation or platelet medications. No history of hematological symptoms or problems. Oncology: No history of CA metastasis, chemo within 30 days, or radiotherapy within 90 days. No history of oncological symptoms or problems. Psych: Positive for: anxiety and depression (Stable on Rx, follows with PCP). Musculoskeletal: Negative for joint pain or swelling, back pain or muscle pain. Skin: Negative for lesions, rash and itching. PAST MEDICAL HISTORY Diagnosis Date Anxiety and depression Fatty liver PAST SURGICAL HISTORY Procedure Laterality Date COLONOSCOPY CYST EXCISION Left 2001 EGD 2008 EXTRACTION ERUPTED TOOTH wisdom teeth RHINOPLASTY Deviated septum TONSILLECTOMY HX x 2 FAMILY HISTORY Problem Relation Age of Onset No Known Problems Mother No Known Problems Father Social History Tobacco Use Smoking status: Never Smoker Smokeless tobacco: Never Used Vaping Use Vaping Use: Never used Substance Use Topics Alcohol use: Yes Comment: Not weekly Drug use: Never Prior to Admission medications as of 11/12/21 1536 Medication Sig Last Dose Taking FLUoxetine HCl (PROZAC) 40 mg capsule Take 40 mg by mouth once daily. Taking Yes No medication comments found. ALLERGIES Allergen Reactions Animal Dander Cough, Itching, Rash, Other: See Comments Dust Other: See Comments Mildew Other: See Comments Mold Cough, Other: See Comments Objective PHYSICAL EXAM: (if completed, exam performed via video enabled technology) General: alert and oriented and morbidly obese. Pertinent negatives noted - not distressed. Skin: normal color, no rash or lesions. HEENT: pupils equal round. Cardiovascular: Patient able to palpate radial pulse, denies skipped beats or pauses.. Respiratory: Breathing unlabored. Chest rise equal. No audible wheezing.. Abdomen: Not examined. Extremities: No deformity noted. Neurological: Normal cognition and gait. PAIN ASSESSMENT: VITALS: Ht 5' 6 [Patient reported[ (1.68m) Wt 328 lb 6.4 oz (149.0kg) LMP 12/20/2020 BMI 53.03 kg/(m^2). Diagnostic tests reviewed for today's visit: Lab Value Units Date High Low HB No results within date range. HCT No results within date range. WBC No results within date range. PLT No results within date range. NA No results within date range. K No results within date range. GLUC No results within date range. BUN No results within date range. CREAT No results within date range. PTSEC No results within date range. INR No results within date range. APTT No results within date range. ALT No results within date range. AST No results within date range. TBILI No results within date range. TSH No results within date range. Lab Value Units Date High Low HCGQT No results within date range. UHCG No results within date range. HCG, BODY* No results within date range. Lab Value Units Date High Low ABORHD No results within date range. ABSCREEN No results within date range. No results found for: HBA1C No results found for this or any previous visit (from the past 8760 hour(s)). No results found for this or any previous visit (from the past 43757 hour(s)). Assessment Morbidly obese (HCC) Assessment: Body mass index is 53.01 kg/m . Preparing for bariatric surgery. Scheduled for EGD. Fatty liver Assessment: Normal LFTs 12/2020. Anxiety and depression Assessment: Symptoms currently stable on Rx. Following with PCP. Serna Activity Status Index: METS: Climb a flight of stairs or walk up a hill (5.50 METs) DASI Score: 5.5 Patient denies any chest pain or undue shortness of breath with the above physical activity. Clinical Frailty Scale: 2. Well STOP-Bang Score: Snores loudly BMI greater than 35 kg/m^2 Has a large neck Denies feeling tired, fatigued, or sleepy during the daytime Has not been observed to stop breathing or choking/gasping during sleep Denies having high blood pressure Patient 50 years old or younger Non-male patient STOP-Bang Score: 3 [id number] Score: Age: <65 Sex: female CHF history: No Hypertension history: No Stroke/TIA/thromboembolism history: No Vascular disease history: No Diabetes history: No [id number] Score: 1 ASA Class: 3 ANESTHESIA FINDINGS: Intubation History: No history of difficult intubation. No abnormal airway history Significant Anesthesia Considerations: Woke up during colonoscopy/EGD Airway History: No history of difficult airway No abnormal airway history I - PHYSICAL EVALUATION AIRWAY Tracheostomy tube not present Mallampati: III. Neck ROM: full ROM without neurological symptoms. Mouth opening: adequate. Short neck: yes. Thick neck: yes DENTAL Dental findings: missing tooth/teeth. II - ANESTHESIA PLAN ASA Score: 3 Anesthetic Plan: MAC Prepared for Surgery: optimally prepared for surgery. CONSULTS: Patient does not require consults for optimization at this time Planned Anesthetic: MAC The Following Tests/Procedures Have Been Initiated: No orders of the defined types were placed in this encounter. Instructions Given to Patient: Instructions located in the after visit summary. Patient given verbal and written preop instructions and voices comprehension and compliance. SIGNATURE: Maria T Lares APRN.CNP PATIENT NAME: Funmilayo Conway DATE: November 12, 2021 TIME: 12:50 PM PAGER/CONTACT #: documented in this encounter [facility] 11-12-2021 Instructions Maria T Lares APRN.CNP - 11/12/2021 3:40 PM EDT PATIENT PREOPERATIVE INSTRUCTIONS Mulugeta Salmon MD has scheduled you for your procedure at this surgery center: [facility]: [phone] --[id number] [place] [address]. Please enter through the entrance closest to [facility]. Please read below carefully for your personalized instructions. Dietary Restrictions: - Nothing to eat or drink after midnight except for a sip of water with approved medications. - Do not drink any alcohol after midnight the night before your surgery. Medications: Unless instructed differently below, stay on all of your medications until your surgery. Approved medications to take the morning of surgery with a sip of water: Prozac If you start any new medications after today's visit, please contact the surgeon's office. Blood Thinning Medications: - Stop NSAIDS (Ibuprofen, Advil, Aleve, Motrin, Celebrex, Mobic, etc.) 7 days before surgery, as directed by your surgeon. - Stop Aspirin 7 days before surgery, as directed by your surgeon. - Stop Vitamin E, ALL multi-vitamins, herbals and dietary supplements 7 days before surgery. - You may take Tylenol (Acetaminophen) or any of your pain medications that do not contain aspirin or NSAIDS as needed. Important Reminders: - Candy, mints, and tobacco products are NOT permitted the morning of surgery. - Hearing aids, dentures and glasses may be worn the morning of surgery. - NO jewelry, body piercings, makeup, hairpins or contacts are to be worn the day of surgery. If you develop symptoms such as a fever, cold, or flu, or have other changes to your health within TWO DAYS of scheduled surgery or the morning of surgery, please contact the surgery center above. Personal Belongings: -Please have photo ID and insurance cards. -If you do not have a copy of advance directives on file with us, please bring a copy with you on the day of surgery. - Leave ALL valuables and money at home or with family members. For Outpatient Procedures: - YOU MUST HAVE A RESPONSIBLE WAGON WINDER TAKE YOU HOME. A CIGARETTE FILTER INSPECTOR OR ASSISTANT PASSENGER LOCOMOTIVE ENGINEER CANNOT BE MADE A RESPONSIBLE WAGON WINDER. - We recommend that a responsible person stays with you overnight to take care of you. - You cannot stay in a hotel alone after outpatient surgery. You will not be permitted to have your surgery, if you do not have someone to take care of you. Arrival Time for Surgery: - The Surgery Center or hospital where you are having surgery will call the afternoon before surgery (or Wednesday for Wednesday surgery) with a scheduled arrival time. - If you have not heard by 4 pm, please contact the surgery center above. Please be aware that emergency situations arise, which may delay or change your surgical time. If this happens, we will notify you as soon as possible and regret any inconvenience. If you already have an Advance Directive, please fax a copy to [phone] or email to for it to be added to your chart. If you do not have an Advance Directive, you can find the appropriate form and more information at [email or web address]. We recommend that you complete the Advance Directive form found on the website and bring it with you the day of your surgery. It can be witnessed and scanned into your chart that day. Maria T Lares APRN.CNP documented in this encounter [facility] 11-07-2021 Instructions Danny Cristina, - 11/07/2021 9:39 AM EDT Lovely Conway , Thank you for completing your visit today and we welcome you to the surgical program. We are sure that you will still have some additional questions and encourage you to reach out to your care provider via [employer] OR your Patient Navigator. Patient Navigators are assigned alphabetically by patient last name. The contact information for each Navigator is listed below. Last names A-E= Airam Last names F-L = Opal Last names M-R= Adin Last names S-Z= Zoe Additionally, you may find many of the answers to your questions in our Guide To Surgery book. This book includes step by step instructions for completing your surgical path and resources for the surgical procedures, medical information, and nutrition/diet information. We would like you to review this book as your providers will refer to information contained in it. For now, please follow the link below to read online version of the book, but next time you have a FACE to FACE visit with one of your providers, please feel free to ask for a hard copy. [email or web address] en Once you complete all of the requirements (testing, consultations, diet, etc) from each provider, please call [phone] and select option #5 to initiate insurance approval. Please note scheduling information It is important to keep track of your scheduled appointments to ensure successful completion of our surgical program. Any missed appointments can further delay your pre-surgical work-up. [facility] does offer an opt-in option for getting text message appointment reminders. Please follow the link below if you would like to opt into this service. [email or web address] As part of your surgical work up, SOME or ALL of the following tests may have been ordered. It will be your responsibility to schedule and complete these tests in order to proceed with your bariatric surgery. Please review the following instructions on how to get your testing scheduled. -EKG, Chest X-ray, Ultrasound- An appointment is needed for each of these tests. You may call your local [facility] to get an appointment. - Lab work- No appointment is needed for this, you may complete at any [facility]. These are usually fasting labs, please be sure to fast (only water permitted) for 10-12 hours prior to the test. -Sleep Study- Please call [phone] or [phone] to get this appointment set up. -Sleep Medicine Consult- (Only needed if sleep study confirms sleep apnea) Please call [phone] or [phone] to schedule an appointment. -Upper GI/ EGD- Please call [phone] to schedule. -Provider follow up visit- Please call [phone] OR [phone] to schedule. Any testing that is completed outside of [facility] will need faxed to [phone]. We look forward to working with you on this journey, Danny Cristina DO documented in this encounter [facility] 11-07-2021 History of Present illness Narrative DISTANCE HEALTH VISIT This Team Access Model visit is a virtual encounter. It required patient-provider interaction for the medical decision making as documented below. BMI Obesity Medicine Initial Bariatric Surgery Consult November 07, 2021 Consultation requested for an opinion regarding bariatric surgery.. My final recommendations will be communicated back to the requesting physician by way of shared Medical record or letter to requesting physician via US mail. Patient Summary:: Funmilayo Conway is a 31 year old female who presents on November 07, 2021 for surgical evaluation and treatment of obesity. The patient is interested in laparoscopic gastric bypass cathie-en-y and has decided to have the procedure with Jona Cormier MD Weight History: She reports a strong family history of obesity and childhood onset weight gain. She states her weight gain is related to the following factors, including emotional eating as a child and lifestyle changes.. Weight Graph: (please see graph scanned in chart) Obesigenic Medications: NO Diet: Quality of diet: 24hr recall suggests healthy diet. Since the visit with the wagon driver, eating less starch, not skipping meals, and eating more vegetables. Characterization of diet:Structured. History of eating disorders: negative Previous Obesity Treatments: commercial diets and dietitian. Exercise: Regular exercise: walking 3 times a week Barriers to regular exercise? 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 NO STOP BANG 1. Snoring : Do you snore loudly (louder than talking, heard through closed doors)? YES 2. Tired : Do you often feel tired, fatigued, or sleepy during daytime? YES 3. Observed : Has anyone observed you stop breathing during your sleep? NO 4. Blood Pressure: Do you have or are you being treated for high blood pressure? NO 5. BMI : BMI more than 35 kg/m2? YES 6. Age : Age over 50 yr old? NO 7. Neck circumference: Neck circumference greater than 40 cm? NO 8. Gender : Gender male? NO STOP BANG Score 3, intermediate Stress: None Past Medical History Gestational diabetes PCOS Vitamin D deficiency No history of [place], COPD, asthma, peptic ulcer disease, dyslipidemia, hypothyroidism, HTN, cancer, DVT, PE, CVA, T2DM, gout, kidney stones, CKD, and smoking history Current Outpatient Medications on File Prior to Visit Medication Sig amoxicillin-clavulanic acid (AUGMENTIN) 875-125 mg per tablet Take 1 tablet by mouth twice daily. (Patient not taking: Reported on 09/15/2021 ) FLUoxetine (PROZAC) 20 mg capsule Take 20 mg by mouth once daily. FLUoxetine HCl (PROZAC) 40 mg capsule FLUoxetine HCl (PROZAC) 40 mg capsule Take 40 mg by mouth once daily. No current facility-administered medications on file prior to visit. ALLERGIES Not on File PSH: Any problems with anesthesia with the above surgeries: No No family history on file. Social History Tobacco Use Smoking status: Never Smoker Smokeless tobacco: Never Used Substance Use Topics Alcohol use: Not on file Drug use: Not on file Review Of Systems Skin: negative Respiratory: No history of cough, hemoptysis, asthma, recent chest infection, wheezing Cardiovascular: No history of chest pain,palpitation,orthopnea,cynosi s,pedel edema Gastrointestinal: No blood in stool, pain with BM, tarry stool, persistent diarrhea or constipation Genitourinary: No burning with urination, blood in urine or incontinence. No change in vaginal discharge, burning, dryness or itching. Hematology/Lymphology Negative for prolonged bleeding, bruising easily or swollen nodes Musculoskeletal: negative Psychiatric: depression Endocrine: No history of thyroid disorder,diabetes,cold intolerance,heat,intolerance,poly dypsia, polyuria, and polyphagia. Neuro: No history of headaches, syncope, paralysis, seizures or tremors Physical Exam LMP 12/20/2020 BMI = There is no height or weight on file to calculate BMI. Keny Conway is a 31 year old female with Class III obesity She has the following metabolic complications of obesity PCOS and vitamin D deficiency and other medical conditions as below. We reviewed principles of energy metabolism, caloric intake and expenditure, and rationale for treatment program. We discussed the importance of healthy lifestyle modification. She is a candidate for bariatric and metabolic surgery. she will be evaluated by our multidisciplinary team in preparation for surgery. : Recommend that she should not become for 18-24 months after surgery due to increased risks of micronutrient deficiency. I counseled her on the perioperative use of estrogen therapy, instructing her not to take oral estrogen (eg OCPs) one month before and one month after surgery due to increased VTE risk. We reviewed alternate forms of contraception and encouraged the patient to speak with her physician/provider to formulate a perioperative plan. If she is considering a Cathie-en Y gastric bypass, I counseled her that oral methods of control may not be as effective after surgery and that they should consider alternate contraception to reduce the risk of . Plan Based on the severity and resistance of the obesity to more conservative weight loss approaches, I believe a surgical intervention is the best and most appropriate intervention. She has a 0 month insurance requirement prior to surgery. Reviewed BMI Nutritional Tips for Bariatric Surgery pamphlet Encouraged the patient to improve physical activity. We discussed the benefits of both cardiovascular and strength exercises. Discussed the importance of taking post-operative vitamins and reviewed vitamin levels ordered today. Patient understands that any variations of B vitamins or Vitamin D will be corrected pre-operatively. -- Needs an EKG, chest x-ray, right upper quadrant ultrasound, and labs to screen for diabetes, insulin resistance, thyroid disease, and vitamin deficiencies. -- May proceed with bariatric surgery if the baseline ECG normal. No further noninvasive cardiac testing needed as the patient has no intermediate clinical risk factors, (IDDM, renal failure, CHF, CAD, and CVA) and has a normal functional capacity. I spent a total of 45 minutes on the date of the service which included completing clinical documentation, obtaining and/or reviewing separately obtained history, counseling and educating the patient/family/caregiver and ordering medications, tests, or procedures. Medical Decision Making Danny Cristina DO documented in this encounter [facility] 10-27-2021 Evaluation note Encounter Date Diagnosis Assessment Notes October, Contact with and (suspected) exposure to other viral communicable diseases (ICD-10 - Z20.828) October, Acute non-recurrent maxillary sinusitis (ICD-10 - J01.00) Sinus infections can be triggeredby a secondary infection; usually a viral URI or even seasonal allergies. Take medications as directed. Use saline nasal spray prior to presciption nasal spray. Complete all doses of medication even if you start to feel better. Symptoms should improve during treatment period. Follow up with primary care provider if no improvement of symptoms occur by end of treatment. Sign and symptoms are consistent with sinusitis. Tachycardia is most likely secondary to her acute sinusitis. I educated her about the risks vs benefits of atb use. She understands and would like to start on the atb. Will treat with zithromax and medrol dose pack for inflammation. She is advised to follow up with her primary doctor if symptoms do not improve in 4-5 days. October, Sore throat (ICD-10 - J02.9) October, Other Additional time spent conducting pre-visit phone call, screening for symptoms, instructions on social distancing, application and removal of PPE, and cleaning of examination room, equipment and supplies was preformed. Patient education given for testing methodology and results. Patient care instructions given in writting by [facility] document. [employer] Other 04-12-2022 History of Present illness Narrative* Jagruti Escobar RN - 09/16/2021 9:47 AM EDT Opened in error. [facility] History of Present illness Narrative* Jona Bermudez MD - 09/15/2021 3:18 PM EDT Images from the original note were not included. [facility] DEPARTMENT OF SURGERY Jona Cormier M.D. [id number] [facility], [address] [address] NAME: Funmilayofly Conway [facility] NO: [id number] DATE OF SERVICE: September 15, 2021 This is an initial consultation for Funmilayo Conway who was referred to me for surgical weight loss. Myfinal recommendation will be communicated via shared electronic medical record. CHIEF COMPLAINT: Morbid Obesity HISTORY OF PRESENT ILLNESS: Funmilayo Conway is here today to discuss surgical options for weight loss. The patient is a 31 year oldfemale with Body mass index is 54.69 kg/m . The patient has failed multiple attempts at durable medical weight loss, and is now interested in metabolic surgery. No past medical history on file. No past surgical history on file. No family history on file. Social History Tobacco Use Smoking status: Never Smoker Smokeless tobacco: Never Used Substance Use Topics Alcohol use: Not on file Drug use: Not on file Current Outpatient Medications Medication Sig FLUoxetine HCl (PROZAC) 40 mg capsule amoxicillin-clavulanic acid (AUGMENTIN) 875-125 mg per tablet Take 1 tablet by mouth twice daily. (Patient not taking: Reported on 09/15/2021 ) FLUoxetine (PROZAC) 20 mg capsule Take 20 mg by mouth once daily. FLUoxetine HCl (PROZAC) 40 mg capsule Take 40 mg by mouth once daily. No current facility-administered medications for this visit. ALLERGIES: ALLERGIES Not on File REVIEW OF SYSTEMS: GENERAL: Negative for malaise, significant weight loss and fever NECK: Negative for lumps, goiter, pain and significant neck swelling RESPIRATORY: Negative for cough, wheezing or shortness of breath. CARDIOVASCULAR: Negative for chest pain, leg swelling or palpitations. GI: Negative for abdominal discomfort, blood in stools or black stools or change in bowel habits : No history of dysuria, frequency or incontinence MUSCULOSKELETAL: Negative for joint pain or swelling, back pain or muscle pain. SKIN: Negative for lesions, rash, and itching. PSYCH: Negative for sleep disturbance, mood disorder and recent psychosocial stressors. ENDOCRINE: Negative for cold or heat intolerance, polyuria, polydipsia and goiter. PHYSICAL EXAM: BP 140/86 Pulse 92 Ht 167.2 cm (5' 5.82 ) Wt (!) 152.9 kg (337 lb) LMP 12/20/2020 BMI 54.69 kg/m GENERAL: No apparent distress. Pt is alert and oriented x3. HEENT: Head is normocephalic and atraumatic. Extraocular muscles are intact. Pupils are equal, round, and reactive to light and accommodation. Nares appeared normal. Mouth is well hydrated and without lesions. Mucous membranes are moist. Posterior pharynx clear of any exudate or lesions. NECK: Supple. No carotid bruits. No lymphadenopathy or thyromegaly. ABDOMEN: Soft, nontender, and nondistended. Positive bowel sounds. No hepatosplenomegaly was noted.Abdomen examination shows previous incisions in relation to a previous CS EXTREMITIES: Without any cyanosis, clubbing, rash, lesions or edema. NEUROLOGIC: Cranial nerves II through XII are grossly intact. PSYCHIATRIC: Flat affect, but denies suicidal or homicidal ideations. SKIN: No ulceration or induration present. ASSESSMENT: Assessment Ms. Funmilayo Conway is a pleasant 31 years old female patient, interested in bariatric surgery and referred to us by her PCP. She is class III obesity with a BMI of 54 kg/m2. Previous h/o CS in 2018. Denies smoking or alcohol ingestion. Interested in a Gastric Bypass. No h.o reflux disease. DATA: Diagnostic tests reviewed for today's visit: Previous epic charts IMPRESSION: Funmilayo Conway is a 31 year old female Body mass index is 54.69 kg/m . Diagnosis noted as above, no additional diagnosis at this time. This patient does meet the criteria for a surgical weight loss procedure according to NIH and ASMBSguidelines. PLAN / RECOMMENDATIONS: I reviewed surgical options with the patient in detail. The patient is interested in a Gastric Bypass and I believe that this is an excellent choice. We will continue evaluation in our multidisciplinary group in preparation for surgery. The plan of treatment for Funmilayo Conway is to continue with the c onsultations and tests ordered today in hopes of qualifying for pre-operative clearance for bariatric surgery. We will obtain an EGD before the surgery I have also reviewed with this patient needed nutritional changes, post- operative recovery and the potential for excess skin following surgery and subsequent weight loss. Information regarding probable and potential postoperative complications, dietary and medical postoperative limitations, and potential cosmetic sequelae has been received by individual. Risk of nicotine before and after bariatric surgery, and risk of other adverse events were also discussed with the patient. Thank you for allowing me to participate in the care of your patient. I spent a total of 45 minutes on the date of the service which included preparing to see the patient, [id number] patient care, completing clinical documentation, obtaining and/or reviewing separately obtained history, performing a medically appropriate examination, counseling and educating the pat ient/family/caregiver and ordering medications, tests, or procedures. Jona Bermudez MD Advanced Laparoscopic and Bariatric Surgery [facility] NoteChief Complaint consultation for GI complaints HPI Staff 31 year old female presents on consultation from Dr. Byrd for change in bowel habits. Reports one month history of up to 8 bowel movements per day. Stool is liquid to soft in consistency. Reports bloating and gas. Stool and gas with foul odor. Denies abdominal pain, nausea or vomiting. Denies rectalpain or bleeding. No unexplained weight loss. No stool studies completed. Has changed diet to include increase in fiber, fruits and vegetables. Never had colonoscopy in the past. Paternal grandmotherwith colon cancer, diagnosed age 50's. Patient has two cousins with Crohn's. History of Present Illness 31 yo female referred for several month h/o bowel changes, frequent loose/soft stools 20 minutes after eating, sometimes without eating, any type of food, no blood, no N/V; no wt loss; no fevers or recent antibiotics or travel, no ill contacts; only abdominal operation ; had colonoscopy asa teenager for bowel changes, reportedly wnl; no asa or NSAID use, no SBE prophylaxis; fmhx of Crohn's disease in 2 cousins; paternal grandmother diagnosed with colon cancer in her 50's; no tobacco use. Review of Systems PHQ Score Initial Depression Screen Score: 0 ROS - Provider Constitutional: no fever, no sweats, no weight loss. Eyes: yes glasses, no blurred vision, no visual loss. ENMT: no dentures, no hoarseness, no swallowing difficulties, no hearing loss, no ear infection(s),no nose bleeds. Cardiovascular: normal blood pressure, no chest pain, regular heartbeat, no heart murmur. Respiratory: no shortness of breath, no cough, no asthma, no wheezing. Gastrointestinal: no nausea, no vomiting, yes diarrhea, no constipation, no blood in stool, yes change in bowel habits, yes abdominal pain, no hepatitis. Genitourinary: no kidney stones, no urine infection, no dysuria. Musculoskeletal: no pain, no weakness. Skin: no changing moles, no rash, no skin lumps. Neurologic: no seizures, no epilepsy, no headache. Psychiatric: no emotional or psychiatric problem. Heme/Lymph: no bleeding problems, no anemia, no blood clots, no transfusions. Allergy/Immunologic: no swollen lymph nodes/glands, no IV drug abuse. Other: Additional ROS info: Except as noted in the above Review of Systems and in the History of Present Illness, all other systems have been reviewed and are negative or noncontributory. Physical Exam Vitals & Measurements T: 36.2 ?C(Temporal Artery) HR: 92(Peripheral) RR: 16 BP: 126/84 HT: 165.1 cm HT: 165.1 cm WT: 154.8 kg WT: 154.8 kg BMI: 56.79 HEENT: normal conjunctiva, sclera clear, no scleral icterus, EOM intact, PERRLA, oral mucosa moist without lesions. Neck: trachea midline, no mass, symmetric, no thyromegaly or nodules, no adenopathy Respiratory: lungs CTA, respirations non labored. Cardiovascular: regular rate and rhythm, no murmur, no pedal edema or varicosities. Gastrointestinal: obese, soft, non distended, no tenderness, no masses, no palpable hernias, diastasis recti no, no hepatosplenomegaly; normal bs Lymphatic: no cervical adenopathy, Musculoskeletal: normal gait, digits and nails without infection, nodes, cyanosis, clubbing. Skin: no rashes, no lesions, no ulcers, no subcutaneous nodules, induration. Psychiatric/Neuro: oriented to time, place, person, judgement normal, affect appropriate for age, insight intact, no focal deficits. Tests: of old records completed, Discussed surgical options, risks, and possible complications with patient. Assessment/Plan 1. Change in bowel habits (R19.4: Change in bowel habit) plan colonoscopy under anesthesia for further evaluation, informed consent obtained. 2. Generalized postprandial abdominal pain (R10.84: Generalized abdominal pain) see # 1 3. BMI 50.0-59.9, adult (Z68.43: Body mass index [BMI] 50.0-59.9, adult) recommend diet and exercise. Follow-up No qualifying data available Problem List/Past Medical History Ongoing Allergic rhinitis Anxiety BMI 50.0-59.9, adult Change in bowel habits Depression Generalized postprandial abdominal pain Historical Procedure/Surgical History section, Deviated nasal septum, Extraction of wisdom tooth, Ganglion cyst of right foot, Tonsillectomy and adenoidectomy. Medications FLUoxetine 40 mg Cap, 40 mg= 1 cap(s), Oral, Daily Allergies Animal Dander (Sneezing) Dust (Sneezing) Mildew (Sneezing) Mold (Sneezing) Social History Alcohol - No Risk, 04/12/2018 Current, Beer, Wine, 1-2 times per month, Alcohol use interferes with work or home: No. Drinks morethan intended: No., 12/19/2020 Substance Abuse - Denies Substance Abuse, 08/04/2021 Tobacco - No Risk, 04/12/2018 Never (less than 100 in lifetime) Tobacco Use:. Never Smokeless Tobacco Use:. Ready to change: No. Household tobacco concerns: No., 08/04/2021 Family History Depression: Mother. Rheumatoid arthritis: Sister. Immunizations Vaccine Date Status Com (more content not included)...[facility]:Result Comment: Electronically Signed By: EDY JOYCE, Elmira Infante\.lito\Date and Time Signed: 08/04/21 17:32 [id number] NoteAdmission Information Admitting Physician - Neela LIM DO Admitting Diagnoses: Headache, low back pain, vomiting Hospital Course 30-year-old female with PMH of anxiety, depression and obesity. Pt. presented to the hospital with complaints of low back pain, headache and vomiting after starting Keflex for possible UTI on 12/18 ER visit. Patient was provided IV fluids, she has had full resolution of all of her admitting symptoms with exception of what she describes as a mild migraine with photophobia. Patient states that this has improved since time of admission. -CXR: No evidence of active chest disease -CT of abdomen/pelvis without contrast: No evidence of obstructive uropathy, no evidence of acute abdominal or pelvic pathology. -Procalcitonin & lactic acid level - negative -Lab studies reviewed which are unremarkable -Urine culture from 12/18 shows mixed contaminants only, repeat urine on 12/19 no indication of infectious process for Keflex will be discontinued as this was likely cause of patient's vomiting after she developed nausea and vomiting post Keflex intake. -Given above findings in addition to being afebrile since TOA with neg clinical w/o & physical exam, this is likely nonspecific viral illness. Patient is eating and drinking this a.m., has no abdominal or flank pain complaints after lg. BM this a.m. Pt. was instructed on the importance of staying well-hydrated with water, using Tylenol for any complaints of myalgia and following up with her PC P. -Patient is ambulating in room without difficulty, states that all admitting symptoms have significantly improved and/or resolved. Patient is eating and drinking without complaints, denies being SOB,chest pain, pressure, palpitations or difficulty with voiding. Patient is eager to be discharged [place]. --Other chronic medical conditions as outlined in note. Refer to d/c plan below: -Case reviewed and discussed with Dr. Graham who is in agreement with current d/c plan. Case will be reviewed and discussed with PCP or health information clerk MD once the hospital motor vehicle operator road supervisor is able to reach him/her. I spent a lengthy amount of time with the patient and/or family reviewing discharge instructions, medications, medication use. Patient to follow-up with PCP and specialty providers as scheduled on discharge. Patient being discharged medically and hemodynamically stable with instructions to return to the hospital if symptoms worsen or recur. This report was transcribed using voice recognition software. Every effort was made to ensure accuracy, however, inadvertently computerized parks and recreation manager mistakes may be present. Significant Findings CT Abdomen/Pelvis w/o Contrast 12/19/20 19:57:21 IMPRESSION: NO EVIDENCE OF OBSTRUCTIVE UROPATHY. NO EVIDENCE OF ACUTE ABDOMINAL OR PELVIC PATHOLOGY. CLINICAL HISTORY: Flank pain, kidney stone suspected. Patient indicates right-sided pain. COMMENT: Unenhanced images were obtained. There is a punctate nonobstructing calculus in each kidney. No other definite renal calculi are noted. No calculus is noted in either ureter. The renal collecting systems are not dilated. Both kidneys otherwise appear unremarkable, within the limits of this unenhanced study. The superior portions of the liver and spleen are not included within the [id number] of this renal stone protocol study. The attenuation of the visualized portion of the liver suggests diffuse fatty infiltration, with the liver upper normal limits in size. There is a calcified granuloma in the spleen, the visualized portion of the spleen is otherwise unremarkable. The pancreas, gallbladder, and adrenal glands are unremarkable. There are small nonspecific retroperitoneal lymph nodes. There is no retroperitoneal lymphadenopathy. The abdominal aorta is normal in diameter. No aneurysm is evident. Evaluation of bowel is limited on this study. The bowel loops are not dilated. There is no evidence of bowel obstruction. The appendix is normal. There is fecal material in the colon, which limits evaluation. There is no evidence of diverticulitis. No abdominal inflammatory complex, no free air, nor free fluid is noted. The uterus is anteverted. No calculus is noted in the urinary bladder, and the urinary bladder is unremarkable in appearance. There is no pelvic mass nor pelvic lymphadenopathy. The visualized bones are unremarkable. All CT scans at this facility use dose modulation, iterative reconstruction, and/or weight based dosing when appropriate to reduce radiation dose to as low as reasonably achievable. Signed By: Reuben Woodruff M.D. 12/19/20 17:57:07 Rectal Contrast Given? No Oral contrast amount in ml?s: 0 Signed By: Reuben Woodruff M.D. XR Chest Single View 12/19/20 18:16:33 NEGATIVE: No infiltrate, mass or other acute cardiopulmonary abnormality Read By: Shiva Ferreira DO 12/20/20 07:33: (more content not included)...[facility]:Result Comment: Electronically Signed By: Prerna CAVANAUGH\.br\Date and Time Signed: 12/20/20 10:28 EDT\.br\Electronically Co-Signed By: Jarred GRAHAM MD\.br\Date and Time Co-Signed: 01/13/21 08:22 [id number] NoteMicrobiology PROCEDURE: Blood Culture Charcoal [R1] SOURCE: Blood BODY SITE: Arm L COLLECTED DATE/TIME: 12/19/2020 17:25 EDT RECEIVED DATE/TIME: 12/19/2020 17:39 EDT START DATE/TIME: 12/19/2020 17:39 EDT FREE TEXT SOURCE: IV start Jhon GOMEZ Shiva S. Jhon DO, Shiva S. FINAL REPORTS Final Report [] Verified Date/Time: 12/26/2020 18:00 EDT No growth at 7 days. Performing Locations R1: This test was performed at: [facility], [address] [place] [address], [id number] [place] [address], FhmrznMagruder HospitalComment on above:Performed By: #### [id number] #### [facility] [address] [place] [address] [id number] NoteMicrobiology PROCEDURE: Blood Culture Charcoal [R1] SOURCE: Blood BODY SITE: Arm R COLLECTED DATE/TIME: 12/19/2020 17:30 EDT RECEIVED DATE/TIME: 12/19/2020 17:39 EDT START DATE/TIME: 12/19/2020 17:39 EDT FREE TEXT SOURCE: Jhon GOMEZ, Shiva S. Jhon DO, Shiva S. FINAL REPORTS Final Report [] Verified Date/Time: 12/26/2020 18:00 EDT No growth at 7 days. Performing Locations R1: This test was performed at: [facility], [address] [place] [address], [address] [place] [address], YfxvgvMagruder HospitalComment on above:Performed By: #### [id number] ####[facility] [address] [place], [place] [id number] Marsha Flores entered room at this time to discuss discharge planning. Patient is alert & involved in plan of care. Labs & diagnostics reviewed. DME discussed. PCP/insurance information verified. Contact information provided with cindy fish updated. Observation status. Patient states she is f eeling better this morning. Lives at home independently with spouse. Will drive herself home upon discharge. Denies need for CRM to call family for updates, states will be in to visit. No further questions. Anticipate no discharge needs. Anticipated discharge home 12/20. CRM remains available.[facility] HospitalComment on above:Result Comment: Electronically Signed By: Janusz SOLIS, Sandra Houston\Date and Time Signed: 12/20/20 08:26 [id number] Note Chief Complaint From home, patient complains of lower back pain, head pain, and vomiting. States she was seen in the ED and was told to come back if she started vomiting. Started vomiting today History of Present Illness Patient is a 30-year-old female with past medical history as noted below who comes in with above-stated chief complaint. Patient states that she began having coryza type symptoms on December 18, 2020. Patient came to emergency department for evaluation and was diagnosed with acute pyelonephritis and discharged on Keflex. On December 19, 2020 patient states that her coryza symptoms had not improved significantly and she began to have nausea and emesis. Patient went to see her primary care physician who recommended patient come to the ED for evaluation. Patient will be admitted for symptom control. At time of my exam patient states that her headache is her most significant symptom. The flank pain hassubsided by time I examined patient. She denies any current nausea. She feels that the IV hydrationhas made her feel significantly better. Patient denies any vision changes, chest pain, shortness ofbreath, dysuria, diarrhea, constipation. Review of Systems 14 Systems reviewed and negative except as noted in HPI. Physical Exam Vitals & Measurements T: 36.3 ?C (Oral) TMIN: 36.3 ?C (Oral) TMAX: 36.7 ?C (Oral) HR: 77(Peripheral) RR: 16 BP: 127/76 SpO2: 98% WT: 145 kg General: alert, no acute distress Skin: warm, dry Head: no trauma, normocephalic Neck: Trachea midline, no adenopathy, no tenderness Eye: normal conjunctiva, sclera clear ENMT: oral mucosa moist, no pharyngeal erythema or exudate. hearing grossly intact Cardiovascular: regular rate and rhythm, no murmur/gallop/rub Respiratory: Lungs CTA, respirations non labored , no w/r/r Gastrointestinal: Positive bowel sound, soft, non distended, no tenderness, no guarding. Extremities: no deformity, no trauma Osteopathic: Deferred due to being noncontributory to current case. Neurological: oriented x 4, LOC appropriate for age, CN II-XII intact, motor strength equal & normal bilaterally, sensation equal & normal bilaterally, speech normal Psychiatric: cooperative, affect appropriate for age, normal judgement, normal psychiatric thoughts. Lab Results WBC: 8.4 E9/L (12/19/20:30:00) RBC: 4.7 E12/L (12/19/20:30:00) Hgb: 13.8 gm/dL (12/19/20:30:00) Hct: 41.2 % (12/19/20:30:00) MCV: 88.3 fL (12/19/20:30:00) MCH: 29.6 pg (12/19/20:30:00) MCHC: 33.5 gm/dL (12/19/20:30:) RDW: 12.7 % (12/19/20:30:00) Platelet: 188 E9/L (12/19/20:30:) MPV: 8.3 fL (12/19/20:30:00) Neutro Auto: 61.5 % (12/19/20:30:00) Lymph Auto: 29.4 % (12/19/20:30:00) [place] Auto: 7.8 % (12/19/20:30:00) Eos Auto: 0.6 % (12/19/20:30:) Basophil Auto: 0.7 % (12/19/20:30:00) Neutro Absolute: 5.1 E9/L (12/19/20:30:00) Lymph Absolute: 2.5 E9/L (12/19/20:30:00) [place] Absolute: 0.7 E9/L (12/19/20:30:00) Eos Absolute: 0.1 E9/L (12/19/20:30:00) Basophil Absolute: 0.1 E9/L (12/19/20:30:00) Glucose Lvl: 90 mg/dL (12/19/20:30:00) BUN: 6 mg/dL (12/19/20:30:00) Creatinine: 0.5 mg/dL (12/19/20:30:00) eGFR: >60 (12/19/20:30:00) eGFR AA: >60 (12/19/20:30:00) BUN/Creat Ratio: 12 (12/19/20:30:00) Sodium Lvl: 138 mmol/L (12/19/20:30:00) Potassium Lvl: 3.8 mmol/L (12/19/20:30:00) Chloride: 103 mmol/L (12/19/20:30:00) CO2: 25 mmol/L (12/19/20:30:00) AGAP: 14 mEq/L (12/19/20:30:00) Calcium Lvl: 8.9 mg/dL (12/19/20:30:00) Alk Phos: 44 Int._Unit/L (12/19/20:30:00) ALT: 22 Int._Unit/L (12/19/20:30:00) AST: 18 Int._Unit/L (12/19/20:30:00) Total Protein: 8.2 gm/dL High (12/19/20:30:00) Albumin Lvl: 4.2 gm/dL (12/19/20:30:00) Globulin: 4 gm/dL (12/19/20:30:00) A/G Ratio: 1 Low (12/19/20:30:00) Bili Total: 0.8 mg/dL (12/19/20:30:00) Lactic Acid Lvl: 0.8 mmol/L (12/19/20 20:47:00) Troponin: 2.3 pg/mL Low (12/19/20 17:30:00) UA Spec Desc: Clean Catch (12/19/20 19:06:00) UA Color: Yellow2 (12/19/20 19:06:00) UA Clarity: Clear2 (12/19/20 19:06:00) UA Spec Grav: 1.025 (12/19/20 19:06:00) UA pH: 6.0 (12/19/20 19:06:00) UA Protein: Trace2 Abnormal (12/19/20 19:06:00) UA Glucose: NEGATIVE1 (12/19/20 19:06:00) UA Ketones: 1+ Abnormal (12/19/20 19:06:00) UA Bili: NEGATIVE1 (12/19/20 19:06:00) UA Blood: NEGATIVE1 (12/19/20 19:06:00) UA Nitrite: NEGATIVE1 (12/19/20 19:06:00) UA Urobilinogen: 0.2 (12/19/20 19:06:00) UA Leuk Est: NEGATIVE1 (12/19/20 19:06:00) UA RBC: 0-3 (12/19/20 19:06:00) UA Squam Epithelial: 3-4 (12/19/20 19:06:00) UA WBC: 0-5 (12/19/20 19:06:00) UA Bacteria: Trace2 (12/19/20 19:06:00) UA Mucous: 1+ (12/19/20 19:06:00) Assessment/Plan 1. Myalgia (M79.10: Myalgia, unspecified site) Suspect nonspecific viral illness. Supportive care. IV hydration. Tylenol and ibuprofen as needed. 2. Headache (R51.9: Headache, unspecified) See #1 3. L (more content not included)...[facility] HospitalComment on above: Result Comment: Electronically Signed By: Neela LIM DO\Date and Time Signed: 12/20/20 05:29 EDTEvaluation note* Diagnosis Morbid obesity due to excess calories (HCC)- Primary History of delivery Other [facility]procedural status [facility] Diagnosis Pre-op exam- Primary Preoperative examination, unspecified [facility]* Diagnosis Morbid obesity (HCC)- Primary Morbid obesity [facility] Diagnosis Class 3 severe obesity with body mass index (BMI) of 50.0 to 59.9 in adult, unspecified obesity type, unspecified whether serious comorbidity present (HCC)- Primary PCOS (polycystic ovarian syndrome) Polycystic ovaries [facility] Diagnosis Preoperative examination- Primary Preoperative examination, unspecified Morbidly obese (HCC) Morbid obesity Fatty liver Other chronic nonalcoholic liver disease Anxiety and depression Dysthymic disorder [facility]* Diagnosis Pre-op exam Preoperative examination, unspecified [facility]* Diagnosis Class 3 severe obesity with body mass index (BMI) of 50.0 to 59.9 in adult, unspecified obesity type, unspecified whether serious comorbidity present (HCC) [facility]* Diagnosis Class 3 severe obesity with body mass index (BMI) of 50.0 to 59.9 in adult, unspecified obesity type, unspecified whether serious comorbidity present (HCC)- Primary Dietary counseling and surveillance Dietary surveillance and counseling PCOS (polycystic ovarian syndrome) Polycystic ovaries documented in this encounter [facility] note* Diagnosis Class 3 severe obesity with body mass index (BMI) of 50.0 to 59.9 in adult, unspecified obesity type, unspecified whether serious comorbidity present (HCC) [facility]* Diagnosis Morbid obesity (HCC)- Primary Morbid obesity documented in this encounter [facility] noteNo assessment information [facility]Ad[facility] Work Phone: Evaluation note* Diagnosis BMI 50.0-59.9, adult (HCC)- Primary Body Mass Index 50.0-59.9, adult Dietary counseling Dietary surveillance and counseling Morbid obesity (HCC) Morbid obesity documented in this encounter [facility] note* Diagnosis Anxiety and depression Dysthymic disorder Morbid obesity (HCC) Morbid obesity documented in this encounter [facility] note* Diagnosis BMI 50.0-59.9, adult (HCC)- Primary Body Mass Index 50.0-59.9, adult PCOS (polycystic ovarian syndrome) Polycystic ovaries History of delivery Other postprocedural status Fatty liver Other chronic nonalcoholic liver disease Morbid obesity (HCC) Morbid obesity documented in this encounter [facility] note* Diagnosis Status post gastric bypass for obesity- Primary Bariatric surgery status Obesity, Class III, BMI 40-49.9 (morbid obesity) (HCC) Morbid obesity documented in this encounter [facility] note* Diagnosis History of Cathie-en-Y gastric bypass- Primary Bariatric surgery status documented in this encounter [facility] note* Diagnosis S/P gastric bypass- Primary Bariatric surgery status Impaired intestinal absorption Unspecified intestinal malabsorption Dietary counseling and surveillance Dietary surveillance and counseling documented in this encounter [facility] note* Diagnosis S/P gastric bypass- Primary Bariatric surgery status Dietary counseling and surveillance Dietary surveillance and counseling [facility]* Diagnosis S/P gastric bypass- Primary Bariatric surgery status [facility]* Diagnosis S/P gastric bypass- Primary Bariatric surgery status Impaired intestinal absorption Unspecified intestinal malabsorption Dietary counseling and surveillance Dietary surveillance and counseling documented in this encounter [facility] general Narrative - Reported* Type Description Date Medical History PCOS Medical History chronic depression Medical History anxiety Surgical History tonsillectomy and adenoidectomy x2 Surgical History wisdom teeth Surgical History cyst removal from left foot Surgical History nasal surgery Surgical History C section Hospitalization History see above [employer] Other Reason for referral (narrative)* Outpatient Procedure (Routine) - Pending Review Specialty Diagnoses / Procedures Referred By Vipin kunz Referred To Contact [facility] Diagnoses Morbid obesity due to excess calories (HCC) Procedures EGD BARIATRIC ESOPHAGOGASTRODUODENOSC OPY TRANSORAL DIAGNOSTIC Jona Johns MD [address] [id number] [facility] [place] [id number] Referral ID Status Reason Start Date Expiration Date Visits Requested Visits Authorized [id number] Pending Review Auto-Generat ed Referral 09/29/2021 09/15/2022 1 1 [facility] for referral (narrative)* Outpatient Procedure (Routine) - Authorized Specialty Diagnoses / Procedures Referred By Vipin kunz Referred To Contact [facility] Diagnoses Pre-op exam Procedures EGD DIAGNOSTIC ESOPHAGOGASTRODUODENOSC OPY TRANS[place]AL [place] [address] [place] [address] [place] [id number] Referral ID Status Reason Start Date Expiration Date Visits Requested Visits Authorized [id number] Authorized Auto-Generat ed Referral 09/16/2021 09/16/2022 1 1 [facility] for referral (narrative)* Diagnostic Procedure Only (Routine) - Pending Review Specialty Diagnoses / Procedures Referred By Indiraac t Referred To Contact [facility] Diagnoses Class 3 severe obesity with body mass index (BMI) of 50.0 to 59.9 in adult, unspecified obesity type, unspecified whether serious comorbidity present (HCC) Procedures US ABD RT UPPER QUADRANT US ABDOMINAL REAL TIME W/IMAGE LIMITED Danny Cristina DO [address] [place] [id number] [facility] Referral ID Status Reason Start Date Expiration Date Visits Requested Visits Authorized [id number] Pending Review Auto-Generat ed Referral 11/07/2021 12/07/2022 1 1 * Outpatient Procedure (Routine) - Pending Review Specialty Diagnoses / Procedures Referred By Vipin t Referred To [facility] Diagnoses Class 3 severe obesity with body mass index (BMI) of 50.0 to 59.9 in adult, unspecified obesity type, unspecified whether serious comorbidity present (HCC) Procedures ECG COMPLETE ECG ROUTINE ECG W/LEAST 12 LDS W/I&R Danny Cristina DO [address] [facility] [place] [id number] [facility] [address] Referral ID Status Reason Start Date Expiration Date Visits Requested Visits Authorized [id number] Pending Review Auto-Generat ed Referral 11/07/2021 11/07/2022 1 1 [facility] for referral (narrative)* Outpatient Procedure (Routine) - Closed Specialty Diagnoses / Procedures [facility] Diagnoses Pre-op exam Procedures EGD DIAGNOSTIC ESOPHAGOGASTRODUODENOSC OPY TRANSORAL [place] [address] [place] [address] [facility] [place] [address] Referral ID Status Reason Start Date Expiration Date V isits Requested Visits Authorized [id number] Closed Auto-Generate d Referral 09/16/2021 09/16/2022 1 1 [facility] for referral (narrative)* Diagnostic Procedure Only (Routine) - Closed Specialty Diagnoses / Procedures Referred By Contac t Referred To Contact US IMAGING Diagnoses Class 3 severe obesity with body mass index (BMI) of 50.0 to 59.9 in adult, unspecified obesity type, unspecified whether serious comorbidity present (HCC) Procedures US ABD RT UPPER QUADRANT US ABDOMINAL REAL TIME W/IMAGE LIMITED Danny Cristina DO [address] [place] [id number] Us Imaging Referral ID Status Reason Start Date Expiration Date V isits Requested Visits Authorized [id number] Closed Auto-Generate d Referral 11/07/2021 12/07/2022 1 1 [facility] for visit Narrative* Outpatient Procedure (Routine) - Closed Specialty Diagnoses / Procedures Referred By Contac t Referred To Contact [facility] Diagnoses Pre-op exam Procedures EGD DIAGNOSTIC ESOPHAGOGASTRODUODENOSC OPY TRANS[place] [address] [place] [address] [facility] [address] [place] [address] Referral ID Status Reason Start Date Expiration Date V isits Requested Visits Authorized [id number] Closed Auto-Generate d Referral 09/16/2021 09/16/2022 1 1 [facility] for visit Narrative* Diagnostic Procedure Only (Routine) - Closed Specialty Diagnoses / Procedures Referred By Contac t Referred To Contact US IMAGING Diagnoses Class 3 severe obesity with body mass index (BMI) of 50.0 to 59.9 in adult, unspecified obesity type, unspecified whether serious comorbidity present (HCC) Procedures US ABD RT UPPER QUADRANT US ABDOMINAL REAL TIME W/IMAGE LIMITED Danny Cristina DO [address] [place] [id number] Us Imaging Referral ID Status Reason Start Date Expiration Date V isits Requested Visits Authorized [id number] Closed Auto-Generate d Referral 11/07/2021 12/07/2022 1 1 [facility] Summary Purpose Family History No Family History Records FoundNo Family History Records FoundNo Family History Records FoundNo Family History Records FoundNo Family History Records FoundNo Family History Records FoundNo Family History Records FoundNo Family History Records Found Advance Directives No Advanced Directives Records FoundDocuments on File Type Date Recorded 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 Advance Directive(s) 10/27/2021 6:10 PM Documents on File Type Date Recorded 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 Advance Directive(s) 10/27/2021 6:10 PM Advance Directive Response Recorded Date/ Time Advance Directives No July 04, 2019 11:44am Chief Complaint and Reason for Visit Chief Complaint wellness Additional Source Comments INFORMATION SOURCE (unrecogn ized section and content) DATE CREATED AUTHOR 09/01/2021 [facility] DATE CREATED AUTHOR AUTHOR'S ORGANIZ ATION 11/13/2021 [facility] DATE CREATED AUTHOR AUTHOR'S ORGANIZ ATION 12/05/2021 [facility] DATE CREATED AUTHOR AUTHOR'S ORGANIZ ATION 01/08/2022 [facility] DATE CREATED AUTHOR AUTHOR'S ORGANIZ ATION 01/10/2022 [facility] DATE CREATED AUTHOR AUTHOR'S ORGANIZ ATION 02/13/2022 [facility] DATE CREATED AUTHOR AUTHOR'S ORGANIZ ATION 05/08/2023 [facility] DATE CREATED AUTHOR AUTHOR'S ORGANIZ ATION 06/23/2023 [facility] EPIC Source Comments (unrecognize d section and content) In the event this informatio n is protected by the Federal Confidentiality of Alcohol and Drug Abuse Patient Records regulations: The Federal rules restrict any use of the information to criminally investigate or prosecute any alcohol or drug abuse patient.[facility] the event this information is protected by the Federal Confidentiality of Alcohol and Drug Abuse Patient Records regulations: The Federal rules restrict any use of the information to criminally investigate or prosecute any alcohol or drug abuse patient.[facility] the event this information is protected by the Federal Confidentiality of Alcohol and Drug Abuse Patient Records regulations: The Federal rules restrict any use of the information to criminally investigate or prosecute any alcohol or drug abuse patient.[facility] the event this information is protected by the Federal Confidentiality of Alcohol and Drug Abuse Patient Records regulations: The Federal rules restrict any use of the information to criminally investigate or prosecute any alcohol or drug abuse patient.[facility] Center[facility] the event this information is protected by the Federal Confidentiality of Alcohol and Drug Abuse Patient Records regulations: The Federal rules restrict any use of the information to criminally investigate or prosecute any alcohol or drug abuse patient.[facility] Center[facility] the event this information is protected by the Federal Confidentiality of Alcohol and Drug Abuse Patient Records regulations: The Federal rules restrict any use of the information to criminally investigate or prosecute any alcohol or drug abuse patient.[facility] Center[facility] the event this information is protected by the Federal Confidentiality of Alcohol and Drug Abuse Patient Records regulations: The Federal rules restrict any use of the information to criminally investigate or prosecute any alcohol or drug abuse patient.[facility] Center[facility] the event this information is protected by the Federal Confidentiality of Alcohol and Drug Abuse Patient Records regulations: The Federal rules restrict any use of the information to criminally investigate or prosecute any alcohol or drug abuse patient.[facility] Center[facility] the event this information is protected by the Federal Confidentiality of Alcohol and Drug Abuse Patient Records regulations: The Federal rules restrict any use of the information to criminally investigate or prosecute any alcohol or drug abuse patient.[facility] Center[facility] the event this information is protected by the Federal Confidentiality of Alcohol and Drug Abuse Patient Records regulations: The Federal rules restrict any use of the information to criminally investigate or prosecute any alcohol or drug abuse patient.[facility] Center[facility] the event this information is protected by the Federal Confidentiality of Alcohol and Drug Abuse Patient Records regulations: The Federal rules restrict any use of the information to criminally investigate or prosecute any alcohol or drug abuse patient.[facility] Center[facility] the event this information is protected by the Federal Confidentiality of Alcohol and Drug Abuse Patient Records regulations: The Federal rules restrict any use of the information to criminally investigate or prosecute any alcohol or drug abuse patient.[facility] Center[facility] the event this information is protected by the Federal Confidentiality of Alcohol and Drug Abuse Patient Records regulations: The Federal rules restrict any use of the information to criminally investigate or prosecute any alcohol or drug abuse patient.[facility] Center[facility] the event this information is protected by the Federal Confidentiality of Alcohol and Drug Abuse Patient Records regulations: The Federal rules restrict any use of the information to criminally investigate or prosecute any alcohol or drug abuse patient.[facility] Center[facility] the event this information is protected by the Federal Confidentiality of Alcohol and Drug Abuse Patient Records regulations: The Federal rules restrict any use of the information to criminally investigate or prosecute any alcohol or drug abuse patient.[facility] Center[facility] the event this information is protected by the Federal Confidentiality of Alcohol and Drug Abuse Patient Records regulations: The Federal rules restrict any use of the information to criminally investigate or prosecute any alcohol or drug abuse patient.[facility] Center[facility] the event this information is protected by the Federal Confidentiality of Alcohol and Drug Abuse Patient Records regulations: The Federal rules restrict any use of the information to criminally investigate or prosecute any alcohol or drug abuse patient.[facility] Center[facility] the event this information is protected by the Federal Confidentiality of Alcohol and Drug Abuse Patient Records regulations: The Federal rules restrict any use of the information to criminally investigate or prosecute any alcohol or drug abuse patient.[facility] Center[facility] the event this information is protected by the Federal Confidentiality of Alcohol and Drug Abuse Patient Records regulations: The Federal rules restrict any use of the information to criminally investigate or prosecute any alcohol or drug abuse patient.[facility] CenterIn the event this information is protected by the Federal Confidentiality of Alcohol and Drug Abuse Patient Records regulations: The Federal rules restrict any use of the information to criminally investigate or prosecute any alcohol or drug abuse patient.[facility] Center[facility] the event this information is protected by the Federal Confidentiality of Alcohol and Drug Abuse Patient Records regulations: The Federal rules restrict any use of the information to criminally investigate or prosecute any alcohol or drug abuse patient.[facility] CenterIn the event this information is protected by the Federal Confidentiality of Alcohol and Drug Abuse Patient Records regulations: The Federal rules restrict any use of the information to criminally investigate or prosecute any alcohol or drug abuse patient.[facility] Center[facility] the event this information is protected by the Federal Confidentiality of Alcohol and Drug Abuse Patient Records regulations: The Federal rules restrict any use of the information to criminally investigate or prosecute any alcohol or drug abuse patient.[facility] CenterIn the event this information is protected by the Federal Confidentiality of Alcohol and Drug Abuse Patient Records regulations: The Federal rules restrict any use of the information to criminally investigate or prosecute any alcohol or drug abuse patient.[facility] Reason for Visit (unrecogniz ed section and content) Reason Comments New Patient Reason Comments Obesity Reason Comments Anesthesia Consult Reason Comments Radiology XR Reason Onset Date Comments Patient Education 12/01/2021 Reassessment 12/01/2021 Reason Comments EKG Specialty Diagnoses / Procedures Referred By Contemmaneul t Referred To Contact [facility] Diagnoses Class 3 severe obesity with body mass index (BMI) of 50.0 to 59.9 in adult, unspecified obesity type, unspecified whether serious comorbidity present (HCC) Procedures ECG COMPLETE ECG ROUTINE ECG W/LEAST 12 LDS W/I&R Danny Cristina, DO [address] [facility] [address] [place] [address] [facility] [address] [place] [address] Referral ID Status Reason Start Date Expiration Date V isits Requested Visits Authorized [id number] Closed Auto-Generate d Referral 11/07/2021 11/07/2022 1 1 Reason Comments Results Reason Comments 02/01/2022 Pseudo surgery date Reason Onset Date Comments Patient Education 03/10/2022 Reassessment 03/10/2022 Reason Comments Pre-Op Teaching Reason Comments Anesthesia Consult Preop evaluation Reason Comments Follow Up Reason Comments Weight Loss Surgery Obesity Reason Comments Patient Education Reassessment Reason Comments Follow Up Weight Loss Surgery Care Teams (unrecognized sec tion and content) 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 Relationship Specialty Start Date End Date Pcp, No PCP - General 10/27/21 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 Relationship Specialty Start Date End Date Pcp, No PCP - General 10/27/21 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 Relationship Specialty Start Date End Date Pcp, No PCP - General 10/27/21 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 Relationship Specialty Start Date End Date Khoi Byrd MD [address] [place] [address] PCP - General Family Practice 11/26/21 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 Relationship Specialty Start Date End Date Khoi Byrd MD [address] [place] [address] PCP - General Family Practice 11/26/21 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 Relationship Specialty Start Date End Date Khoi Byrd MD [address] [place] [address] PCP - General Family Practice 11/26/21 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 Relationship Specialty Start Date End Date Khoi Byrd MD [address] [facility] [place] [address] PCP - General Family Practice 11/26/21 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 Relationship Specialty Start Date End Date Khoi Byrd MD [address] [facility] [place] [address] PCP - General Family Practice 11/26/21 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 Relationship Specialty Start Date End Date Khoi Byrd MD [address] [facility] [place] [address] PCP - General Family Practice 11/26/21 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 Relationship Specialty Start Date End Date Khoi Byrd MD [address] [facility] [place] [address] PCP - General Family Practice 11/26/21 Team Status: Inactive Member Role Status Dates PHYSICIAN NO FAMILY Primary Care Provider Active Danis Tubbs DO [facility] Attending Provider Active Team Status: Active Member Role Status Dates PHYSICIAN NO FAMILY Primary Care Provider Active 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 Relationship Specialty Start Date End Date Khoi Byrd MD [address] [facility] [place] [address] PCP - General Family Medicine 11/26/21 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 Relationship Specialty Start Date End Date Khoi Byrd MD [address] [facility] [place] [address] PCP - General Family Medicine 11/26/21 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 Relationship Specialty Start Date End Date Khoi Byrd MD [address] [facility] [place] [address] PCP - General Family Medicine 11/26/21 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 Relationship Specialty Start Date End Date Khoi Byrd MD [address] [facility] [place] [address] PCP - General Family Medicine 11/26/21 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 Relationship Specialty Start Date End Date Khoi Byrd MD [address] [facility] [place] [address] PCP - General Family Medicine 11/26/21 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 Relationship Specialty Start Date End Date Khoi Byrd MD [address] [place] [facility] [address] PCP - General Family Medicine 11/26/21 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 Relationship Specialty Start Date End Date Khoi Byrd MD [address] [place] [facility] [address] PCP - General Family Medicine 11/26/21 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 Relationship Specialty Start Date End Date Khoi Byrd MD [address] [place] [facility] [address] PCP - General Family Medicine 11/26/21 Goals (unrecognized section and content) Goals may be documented in a n alternate section <item> Privacy Markings (unrecogniz ed section and content) Section Author: Sola Monson PROHIBITION ON REDISCLOSURE OF CONFIDENTIAL INFORMATION This notice accompanies a disclosure of information concerning a client made to you with the consent of such client. FOR RECORDS PERTAINING TO PATIENTS WHO ARE OR HAVE BEEN ENROLLED IN A CHEMICAL DEPENDENCY/SUBSTANCEABUSE PROGRAM, SOME INFORMATION MAY BE OMITTED. This clinical summary was aggregated from multiple sources. Caution should be exercised in using it in the provision of clinical care. This summary normalizes information from multiple sources, and as a consequence, information in this document may materially change the coding, format and clinical context of patient data. In addition, data may be omitted in some cases. CLINICAL DECISIONS SHOULD BE BASED ON THE PRIMARY CLINICAL RECORDS. [facility]. provides no warranty or guarantee of the accuracy or completeness of information in this document.
[2023-08-24 11:46] LABS: Estimated Average Glucose 88 mg/dL; Glycohemoglobin A1C 4.7 % (4.5-6.2)
[2023-08-24 11:57] LABS: HCG Quantitative <1 mIU/mL; Thyroid Stimulating Hormone 2.426 uIU/mL (0.358-3.740)
[2023-08-24 12:10] LABS: Basophils Absolute Auto 0.1 10^3/uL (0.0-0.1); Basophils Percent Auto 0.9 % (0.2-2.0); Eosinophils Absolute Auto 0.1 10^3/uL (0.0-0.7); Eosinophils Percent Auto 1.1 % (0.9-7.0); Hematocrit 39.3 % (36.0-48.0); Hemoglobin 12.6 g/dL (12.0-16.0); Immature Granulocytes Abs Auto 0.02 10^3/uL (0.00-0.03); Immature Granulocytes Pct Auto 0.4 % (0.0-0.5); Lymphocytes Absolute Auto 2.4 10^3/uL (1.2-3.8); Lymphocytes Percent Auto 44.2 % (20.5-60.0); Mean Corpuscular HGB Conc 32.1 g/dL (29.9-35.2); Mean Corpuscular Hemoglobin 29.7 pg (26.7-34.0); Mean Corpuscular Volume 92.7 fL (81.0-99.0); Mean Platelet Volume 11.4 fL (9.5-13.5); Monocytes Absolute Auto 0.4 10^3/uL (0.3-0.8); Monocytes Percent Auto 6.9 % (1.7-12.0); Neutrophils Absolute Auto 2.5 10^3/uL (1.4-6.5); Neutrophils Percent Auto 46.5 % (43.0-75.0); Platelet Count 174 10^3/uL (150-450); Red Blood Count 4.24 10^6/uL (4.20-5.40); Red Cell Distribution Width 12.9 % (11.0-15.0); White Blood Count 5.4 10^3/uL (4.0-11.0)
[2023-08-24 12:27] LABS: Free T4 1.03 ng/dL (0.76-1.46)
[2023-08-25 04:07] LABS: FSH 7.1 mIU/mL (.); Luteinizing Hormone(LH) 6.9 mIU/mL (.)
== END 2023-08-24 10:53 | disposition home or self-care (01) ==
LOC: LAB 10:54
PROVIDERS: Visit Provider Obstetrics & Gynecology
DX: E28.2 Polycystic ovarian syndrome (principal); N92.0 Excessive and frequent menstruation with regular cycle
CPT/HCPCS: 36415; 82626; 82627; 83001; 83002; 83036; 84439; 84443; 84702; 85025

== ENCOUNTER 2023-08-26 16:17 | Outpatient (OUT) | payer OTHER, SELFPAY ==
--- NOTE | 2023-08-26 16:23 | US_ITS ---
[address] [address] Patient Name: TAWANNA SANTOS MRN: [id number] date: 1990 Sex: F Assigned Patient Location: US Current Patient Location: Accession/Order Number: [id number] Exam Date: 08/26/2023 16:35 Report Date: 08/27/2023 07:18 At the request of: EAGLE MA Procedure: US pelvis w/ transvaginal EXAMINATION: US pelvis w/ transvaginal HISTORY: Polycystic Ovarian Syndrome, E28.2 COMPARISON: No relevant comparison available. TECHNIQUE: Transabdominal and/or transvaginal sonographic examination was performed as indicated by examination type. FINDINGS: UTERUS: Normal size and appearance. Incidental 1.2 cm nabothian cysts within cervix. Uterus size: 9.4 x 4.1 x 5.2 cm ENDOMETRIUM: Normal homogeneous appearance. Endometrial thickness: 2 mm RIGHT OVARY: Contains several small follicles in a peripheral distribution. Duplex Doppler demonstrates normal waveform and flow; resistive index 0.4. Ovary size: 2.8 x 1.6 x 2.0 cm LEFT OVARY: Contains several small follicles in a peripheral distribution. Duplex Doppler demonstrates normal waveform and flow; resistive index 0.5. Ovary size: 4.4 x 2.5 x 3.0 cm CUL-DE-SAC: Unremarkable. No significant free fluid. BLADDER: Unremarkable. OTHER: None. US/US pelvis w/ transvaginal IMPRESSION: 1. Unremarkable uterus. 2. Both ovaries contain several small follicles in a peripheral distribution. While this could represent polycystic ovarian syndrome, the number of follicles is less than expected for typical polycystic ovarian syndrome. Electronically authenticated by: NALLELY PABLO Date: 08/27/2023 07:18
== END 2023-08-26 16:18 | disposition home or self-care (01) ==
LOC: US 16:20
PROVIDERS: Visit Provider Obstetrics & Gynecology
DX: E28.2 Polycystic ovarian syndrome (principal)
CPT/HCPCS: 76830; 76856

== ENCOUNTER 2023-08-30 16:06 | Outpatient (OUT) | payer OTHER, SELFPAY ==
--- OUTSIDE RECORDS SUMMARY | 2023-08-30 16:27 | XMS_ITS | CCD ---
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 Comment on above: Order Comment: Speci men Type: BLOOD SPECIMEN Ordering Facility: [facility] Address: [address] [place], [place] [address] Performed By: #### 2 4323-8, 3016-3, 07063-4, 41068-9 #### [facility] CLIA [id number] [address] [place] [address] [place] [facility] Anion gap [Moles/Vol] 10 mmol/L Normal 9-18 [facility] Comment on above: Order Comment: Speci men Type: BLOOD SPECIMEN Ordering Facility: [facility] Address: [address] Performed By: #### 2 4323-8, 3016-3, 27899-8, 67958-8 #### [facility] CLIA [id number] [address] [place] [address] [place] AST [Catalytic activity/Vol] 18 U/L Normal 13-35 [facility] Comment on above: Order Comment: Speci men Type: BLOOD SPECIMEN Ordering Facility: [facility] Address: [address] [place], [place] [address] Performed By: #### 2 4323-8, 3016-3, 23850-6, 28748-1 #### [facility] CLIA [id number] [address] [place] [address] [place] Bilirubin [Mass/Vol] 0.3 mg/dL Normal 0.2-1.3 [facility] Comment on above: Order Comment: Speci men Type: BLOOD SPECIMEN Ordering Facility: [facility] Address: [address] [place] [address] Performed By: #### 2 4323-8, 3016-3, 17038-4, 21299-4 #### [facility] CLIA [id number] [address] [place] [address] [place] Calcium [Mass/Vol] 9.2 mg/dL Normal 8.5-10.2 [facility] Comment on above: Order Comment: Speci men Type: BLOOD SPECIMEN Ordering Facility: [facility] Address: [address] [place] [address] Performed By: #### 2 4323-8, 3016-3, 93553-6, 49148-6 #### [facility] CLIA [id number] [address] [place] [address] [place] Chloride [Moles/Vol] 104 mmol/L Normal 97-105 [facility] Comment on above: Order Comment: Speci men Type: BLOOD SPECIMEN Ordering Facility: [facility] Address: [address] [place] [address] Performed By: #### 2 4323-8, 3016-3, 91785-9, 51921-3 #### [facility] CLIA [id number] [address] [place] [address] [place] CO2 [Moles/Vol] 23 mmol/L Normal 22-30 [facility] Comment on above: Order Comment: Speci men Type: BLOOD SPECIMEN Ordering Facility: [facility] Address: [address] [place] [address] Performed By: #### 2 4323-8, 3016-3, 27335-6, 86999-4 #### [facility] CLIA [id number] [address] [place] [address] [place] Creatinine [Mass/Vol] 0.57 mg/dL Low 0.58-0.96 [facility] Comment on above: Order Comment: Rangel [facility] Type: BLOOD SPECIMEN Ordering Facility: [facility] Address: [address] [address] Performed By: #### 2 4323-8, 3016-3, 72448-1, 29816-7 #### [facility] CLIA [id number] [address] [place] [address] [place] ESTIMATED GLOMERULAR FILTRATION RATE 124 mL/min/1.73m??? Normal >=60 [facility] Comment on above: Order [facility]: [facility] Type: BLOOD SPECIMEN Ordering Facility: [facility] Address: [address] [place] [address] Result Comment: Aleksandra mated Glomerular Filtration Rate [...] actual GFR. Performed By: #### 2 4323-8, 6-3, 20923-9, 01488-8 #### [facility] CLIA [id number] [address] [place] [address] [place] Glucose [Mass/Vol] 112 mg/dL High 74-99 [facility] Comment on above: Order Comment: Rangel zamora Type: BLOOD SPECIMEN Ordering Facility: [facility] Address: [address] [place] [address] Result Comment: The [place] Diabetes Association (ADA) provides guidance for cutoff [...] Standards of Medical Care in Diabetes 2016, [place] Diabetes Association. Diabetes Care. 2016.39(Suppl 1). Performed By: #### 2 4323-8, 3016-3, 27527-0, 59038-1 #### [facility] CLIA [id number] [address] [place] [address] [place] Potassium [Moles/Vol] 4.5 mmol/L Normal 3.7-5.1 [facility] Comment on above: Order Comment: Rangel zamora Type: BLOOD SPECIMEN Ordering Facility: [facility] Address: [address] [place] [address] Performed By: #### 2 4323-8, 6-3, 41108-2, 09766-9 #### [facility] CLIA [id number] [address] [place] [address] [place] Protein [Mass/Vol] 7.4 g/dL Normal 6.3-8.0 [facility] Comment on above: Order Comment: Rangel zamora Type: BLOOD SPECIMEN Ordering Facility: [facility] Address: [address] [place] [address] Performed By: #### 2 4323-8, 6-3, 48966-1, 78679-9 #### [facility] CLIA [id number] [address] [place] [address] [place] Sodium [Moles/Vol] 137 mmol/L Normal 136-144 [facility] Comment on above: Order Comment: Rangel zamora Type: BLOOD SPECIMEN Ordering Facility: [facility] Address: [address] [place] [address] Performed By: #### 2 4323-8, 3016-3, 55873-3, 09388-1 #### [facility] CLIA [id number] [address] [place] [address] [place] Urea nitrogen [Mass/Vol] 12 mg/dL Normal 7-21 [facility] Comment on above: Order Comment: Speci men Type: BLOOD SPECIMEN Ordering Facility: [facility] Address: [address] [place] [address] Performed By: #### 2 4323-8, 3016-3, 89864-2, 18031-1 #### [facility] CLIA [id number] [address] [place] [address] [place] Ferritin SerPl-mCncon 2021 Ferritin [Mass/Vol] 177.6 ng/mL Normal 14.7-205.1 [facility] Comment on above: Order Comment: Rangel [facility] Type: BLOOD SPECIMEN Ordering Facility: [facility] Address: [address] [place] [address] Performed By: #### 2 4323-8, 3016-3, 98663-1, 77969-4 #### [facility] CLIA [id number] [address] [place] [address] [place] Folate SerPl-mCncon 12-02-19 Folate [Mass/Vol] 9.3 ng/mL Normal >4.7 [facility] Comment on above: Order Comment: Kevini noah Type: BLOOD SPECIMEN Ordering Facility: [facility] Address: [address] [place] [address] Performed By: #### 2 4323-8, 3016-3, 93601-5, 99149-7 #### [facility] CLIA [id number] [address] [place] [address] [place] HbA1c (Bld)on 12-01-2021 Average glucose Estimated from glycated hemoglobin (Bld) [Mass/Vol] 108 mg/dL Normal [facility] Comment on above: Order Comment: Kevini men Type: BLOOD SPECIMEN Ordering Facility: [facility] Address: [address] [place] [address] Result Comment: eAG: (Estimated average glucose) is a calculated value from HgbA1c and is sales representative canvas products of the average blood glucose level in the last 2-3 month period. Performed By: #### 2 4323-8, 3016-3, 97995-3, 76162-7 #### [facility] CLIA [id number] [facility] [place] [address] [place] HbA1c (Bld) [Mass fraction] 5.4 % Normal 4.3-5.6 [facility] Comment on above: Order Comment: Rangel zamora Type: BLOOD SPECIMEN Ordering Facility: [facility] Address: [address] [place] [address] Result Comment: Amer [place] Diabetes Association guidelines indicate that patients with HgbA1c in the range 5.7-6.4% are at increased risk for development of diabetes, and intervention by lifestyle modification may be beneficial. HgbA1c greater or equal to 6.5% is considered diagnostic of diabetes. Performed By: #### 2 4323-8, 3016-3, 94773-6, 40812-9 #### [facility] CLIA [id number] [address] [facility] [place] [address] [place] Iron and Iron binding capaci [facility] 12-01-2021 Iron [Mass/Vol] 69 ug/dL Normal 41-186 [facility] Comment on above: Order Comment: Rangel zamora Type: BLOOD SPECIMEN Ordering Facility: [facility] Address: [address] [place] [address] Performed By: #### 2 4323-8, 6-3, 11383-0, 20978-6 #### [facility] CLIA [id number] [facility] [place], [place] [address] [place] [address] [place] Iron binding capacity [Mass/Vol] 296 ug/dL Normal 232-386 [facility] Comment on above: Order Comment: Rangel zamora Type: BLOOD SPECIMEN Ordering Facility: [facility] Address: [address] [place] [address] Performed By: #### 2 4323-8, 3016-3, 64474-3, 00102-1 #### [facility] CLIA [id number] [address] [place], [place] [address] [place] [address] [place] Iron/TIBC [Molar ratio] 23.3 % Normal 15.0-57.0 [facility] Comment on above: Order Comment: Speci men Type: BLOOD SPECIMEN Ordering Facility: [facility] Address: [address] [place] [address] Performed By: #### 2 4323-8, 3016-3, 05457-5, 56431-7 #### [facility] CLIA [id number] [address] [place] [address] [place] [facility] [place] Lipid 1996 panelon 2 Cholesterol [Mass/Vol] 229 mg/dL High <200 [facility] Comment on above: Order Comment: Speci men Type: BLOOD SPECIMEN Ordering Facility: [facility] Address: [address] [place] [address] Result Comment: <200 mg/dL, Desirable 200-239 mg/dL, Borderline high >239 mg/dL, High Performed By: #### 2 4323-8, 3016-3, 94835-5, 41572-9 #### [facility] CLIA [id number] [address] [place] [address] [facility] [place] Cholesterol in HDL [Mass/Vol] 39 mg/dL Low >39 [facility] Comment on above: Order Comment: Speci men Type: BLOOD SPECIMEN Ordering Facility: [facility] Address: [address] [place] [address] Result Comment: 40-5 9 mg/dL, Acceptable >59 mg/dL, High: Negative risk factor for coronary heart disease <40 mg/dL, Low: Positive risk factor for coronary heart disease Performed By: #### 2 4323-8, 3016-3, 97354-9, 45215-0 #### [facility] CLIA [id number] [address] [place] [address] [facility] [place] Cholesterol in LDL [Mass/Vol] 155 mg/dL High <100 [facility] Comment on above: Order Comment: Speci men Type: BLOOD SPECIMEN Ordering Facility: [facility] Address: [address] [place] [address] Result Comment: <100 mg/dL, Optimal 100-129 mg/dL, Near optimal/above optimal 130-159 mg/dL, Borderline high 160-189 mg/dL, High >189 mg/dL, Very high Secondary prevention optimal LDL Cholesterol levels are recommended to be < 70 mg/dL Performed By: #### 2 4323-8, 3016-3, 68525-7, 69809-3 #### [facility] CLIA [id number] [address] [facility] [place] [address] [facility] Cholesterol in LDL/Cholesterol in HDL [Mass ratio] 3.97 {ratio} High <2.54 [facility] Comment on above: Order Comment: Rangel zamora Type: BLOOD SPECIMEN Ordering Facility: [facility] Address: [address] [place] [address] Result Comment: Refe rence: 1. National Cholesterol Education Program ATP III Guideline At-A-Glance Quick Desk Reference: National Heart, Lung, and Blood Rector. National Institutes of Health. 2001: NIH Publication No. 01-3305. 2. An International Atherosclerosis Society position paper: global recommendations for the management of dyslipidemia: executive summary, Atherosclerosis. 2014: 232(2):410-413. Performed By: #### 2 4323-8, 3016-3, 16977-0, 47484-6 #### [facility] CLIA [id number] [facility] [place], [place] [id number] [place] [address] OF [facility] Cholesterol in VLDL [Mass/Vol] 35 mg/dL High <30 [facility] Comment on above: Order Comment: Rangel zamora Type: BLOOD SPECIMEN Ordering Facility: [facility] Address: [address] [phone] Performed By: #### 2 4323-8, 3016-3, 52699-9, 43373-5 #### [facility] CLIA [id number] [address] [facility] [place] [address] [facility] Cholesterol non HDL [Mass/Vol] 190 mg/dL High <130 [facility] Comment on above: Order Comment: Rangel zamora Type: BLOOD SPECIMEN Ordering Facility: [facility] Address: [address] [phone] Result Comment: <130 mg/dL, Optimal 130-159 mg/dL, Near optimal/above optimal 160-189 mg/dL, Borderline high 190-219 mg/dL, High >219 mg/dL, Very high Secondary prevention optimal non HDL Cholesterol levels are recommended to be <100 mg/dL Performed By: #### 2 4323-8, 3016-3, 73566-8, 63175-8 #### [facility] CLIA [id number] [address] [place] [address] [place] Cholesterol.total/Cho lesterol in HDL [Mass ratio] 5.87 {ratio} High <5.10 [facility] Comment on above: Order Comment: Rangel zamora Type: BLOOD SPECIMEN Ordering Facility: [facility] Address: [address] [place], [place] [address] Performed By: #### 2 4323-8, 3016-3, 52169-0, 18001-1 #### [facility] CLIA [id number] [address] [place], [place] [address] [place] [address] [place] FASTING TIME 12 hrs Normal [facility] Comment on above: Order Comment: Rangel zamora Type: BLOOD SPECIMEN Ordering Facility: [facility] Address: [address] Performed By: #### 2 4323-8, 3016-3, 58665-4, 08853-4 #### [facility] CLIA [id number] [address] [place] [address] [place] Triglyceride [Mass/Vol] 173 mg/dL High <150 [facility] Comment on above: Order Comment: Kevini men Type: BLOOD SPECIMEN Ordering Facility: [facility] Address: [address] Result Comment: <150 mg/dL, Normal 150-199 mg/dL, Borderline high 200-499 mg/dL, High >499 mg/dL, Very high Performed By: #### 2 4323-8, 3016-3, 93395-8, 69749-2 #### [facility] CLIA [id number] [address] [facility] [place] [address] [place] PTH-[facility]act [facility] - Parathyrin.intact [Mass/Vol] 42 pg/mL Normal 15-65 [facility] Comment on above: Order Comment: Rangel zamora Type: BLOOD SPECIMEN Ordering Facility: [facility] Address: [address] [place], [place] [phone] Performed By: #### 2 731-8 #### [facility] CLIA [id number] [address] [place] [address] [id number] [place] [address] [place] TSH SerPl-aCncon 12-01-2021 TSH Qn 3.170 m[IU]/L Normal 0.270-4.200 [facility] Comment on above: Order Comment: Rangel zamora Type: BLOOD SPECIMEN Ordering Facility: [facility] Address: [address] [place] [address] Result Comment: If t he patient is , TSH reference range varies by gestational period: First Trimester (weeks 9-12): 0.180-2.990 mIU/L Second Trimester: 0.110-3.980 mIU/L Third Trimester: 0.480-4.710 mIU/L Franco Callejas et al. A Practical Approach for the Verifications and Determination of Site- and Trimester-Specific Reference Intervals for Thyroid Function tests in . Thyroid, 2019:29:3:412-420. Varun E, et al. 2017 Guidelines of the [place] Thyroid Association for the Diagnosis and Management of Thyroid Disease during and the . Thyroid, 2017:27:3:315-389. Performed By: #### 2 4323-8, 3016-3, 78030-3, 23549-8 #### [facility] CLIA [id number] [address] [facility] [place] [address] [place] VITAMIN B1 (THIAMINE), WHOLE BLOODon 12-01-2021 Thiamine (Bld) [Moles/Vol] 134.6 nmol/L Normal 84.3-213.3 [facility] Comment on above: Order Comment: Rangel zamora Type: BLOOD SPECIMEN Ordering Facility: [facility] Address: [address] [place], [place] [phone] Result Comment: This assay measures the concentration of thiamine diphosphate (TDP), the primary active form of vitamin B1. Approximately 90 percent of vitamin B1 present in whole blood is TDP. Thiamine and thiamine monophosphate, which comprise the remaining 10 percent, are not measured. This test was developed and its performance characteristics determined by [facility]'s [facility] Rector (RUSTPLVA). It has not been cleared or approved by the FDA. [facility] is regulated under CLIA as qualified to perform high-complexity testing. This test is used for clinical purposes. It should not be regarded as investigational or for research. Performed By: #### B 1WB #### [facility] CLIA [id number] [address] [place], [place] [address] [address] [place] Vit B12 [facility] 12-01-2 022 Cobalamin (Vitamin B12) [Mass/Vol] 304 pg/mL Normal 232-1,245 [facility] Comment on above: Order Comment: Speci men Type: BLOOD SPECIMEN Ordering Facility: [facility] Address: [address] [place], [place] [phone] Performed By: #### 2 4323-8, 3016-3, 19075-4, 00123-6 #### [facility] CLIA [id number] [address] [facility] [place] [address] [place] No Panel Informationon 11-[address] [facility] US ABD RIGHT UPPER QUADRANTo n 11-28-2021 US ABD RIGHT UPPER QUADRANT * * *Final Report* * * DATE OF EXAM: Nov 28 2021 1:51PM U 1032 - US ABD RIGHT UPPER QUADRANT [...] biliary ductal dilatation. The gallbladder is unremarkable. 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 IMPRESSION: No acute radiographic abnormality. Roller Mechanic: [facility] Transcribe Date/Time: Nov 28 2021 1:32P Dictated by : KOMAL VINES MD This examination was interpreted and the report reviewed and electronically signed by: KOMAL VINES MD on Nov 28 2021 1:33PM EST [id number] CN [facility] ANES POSTPROC EVALon 022 ANES POSTPROC EVAL HNO ID: [id number] Author: Fannie Tanner MD Service: Anesthesiology Author Type: Physician Type: Anesthesia Postprocedure Evaluation Filed: 11/26/2021 3:12 PM Note Text: POST ANESTHESIA EVALUATION NOTE : 1990 Procedure Summary Date: 11/26/21 Room / Location: Procedures Anesthesia Start: 1315 Anesthesia Stop: 1328 Procedure: EGD DIAGNOSTIC Diagnosis: Pre-op exam (Heartburn) Scheduled Providers: Mulugeta Salmon MD; Fannie Tanner MD; Maria Alejandra Callejas APRN.RECREATION COORDINATOR Responsible Provider: Fannie Tanner MD Anesthesia Type: [...] November 26, 2021 TIME: 3:12 PM CSN: [id number] [facility] ANES PRE-OPon 11-26-2021 ANES PRE-OP HNO ID: [id number] Author: Fannie Tanner MD Service: Anesthesiology Author Type: Physician Type: Anesthesia Preprocedure Evaluation Filed: 11/26/2021 12:27 PM Note Text: ANESTHESIOLOGY DAY OF SURGERY NOTE : 1990 Procedure Information Date/Time: 11/26/21 1245 Scheduled providers: Mulugeta Salmon MD; Fannie Tanner MD; Maria Alejandra Callejas APRN.RECREATION COORDINATOR Procedure: EGD DIAGNOSTIC Location: Procedures Estimated body [...] and consent discussed: yes. Patient / Responsible Libertarian agrees to proceed: yes Patient / Surrogate [...] November 26, 2021 TIME: 12:27 PM CSN: [id number] Normal [facility] EGD DIAGNOSTICon 11-26-[address] [facility] Upper GI endoscopyon 022 Upper GI endoscopy [facility] Gastrointestinal Endoscopy Patient Name: Funmilayo Conway Procedure [...] by the physician, the nurse and the configuration management specialist in the pre-procedure area in the endoscopy [...] previously scheduled. Procedure Code(s): --- Professional --- 37272, Esophagogastroduoden oscopy, flexible, transoral; diagnostic, including collection of specimen(s) by brushing or washing, when performed (separate procedure) Diagnosis Code(s): --- Professional --- K21.0, Gastro-esophageal reflux disease with esophagitis R12, Heartburn CPT copyright 2019 [employer]. All rights reserved. The codes documented in this report are preliminary and upon shared services representative review may be revised to meet current compliance requirements. Attending Participation: I personally performed the entire procedure. Scope In: 1:21:30 PM Scope Out: 1:24:29 PM MD Mulugeta Tony MD 11/26/2021 1:27:19 PM This report has been signed electronically by Mulugeta Salmno MD Number of Addenda: 0 Note Initiated On: 11/26/2021 1:06 PM Estimated Blood Loss: Estimated blood loss: none. Normal [facility] HISTORY PHYSICALon 2 HISTORY PHYSICAL HNO ID: [id number] Author: Maria T Lares APRN.OMER Service: ? Author Type: Nurse Practitioner Type: HANDP Filed: 11/12/2021 3:58 PM Note Text: HISTORY AND PHYSICAL EXAMINATION SERVICE DATE: 11/12/2021 SERVICE TIME: 3:26 PM PRIMARY CARE PHYSICIAN: No Pcp This is a virtual visit using NoteS[employer] video visit. It required patient-provider interaction for [...] fevers. 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 No neurological symptoms or problems. Respiratory: No history of current cough or dyspnea, or pneumonia in the past 6 weeks. No history of respiratory/pulmonar y symptoms or problems. Cardiovascular: No history of HTN requiring medication, no history of angina, CHF, VA, cardiac surgery or stents. Denies rest pain, [...] > 1 time per night or hematuria. POLYSOMNOGRAPHIC TECH: Negative for abnormal vaginal bleeding, abnormal vaginal [...] results with (more content not included)... Normal [facility] COVID Quick Testingon 2021 Result Negative [employer] Other Quick Strepon 10-27-2021 S. pyogenes Org specific cx Ql (Throat) Negative [employer] Other Quick Strep play140 [facility] [email or web address] Other Consent for Procedure/Surger yon 08-05-2021 Consent for Procedure/Surgery [id number] #1.00CD:127 [facility] Ambulatory Visit Summaryon 0 08-04-2021 Ambulatory Visit [...] are no longer receiving treatment for. Normal [facility] Physician Referralon 022 Physician Referral [phone] [id number] #1.00CD:127 [facility] Physician Referral [id number] #1.00CD:127 [facility] Covid-19 PCR (CVDTB)on 06-08 SARS-CoV-2 (COVID-19) RNA JONH+probe Ql (Unsp spec) Not detected Normal NOT DETECTED [facility] Comment on above: Result Comment: This test is not yet approved or cleared by the [place] FDA. When there are no FDA-approved or cleared tests available, and other criteria are met, FDA can make tests available under an emergency access mechanism called an Emergency Use Authorization (EUA). The EUA for this test is supported by the [employer] of Health and Human Service's (HHS's) declaration [...] consistent with SARS-CoV-2. Performed By: #### [facility] #### [facility] [address] [place] [address] Dr. Kerri Roberto Covid-19 PCR ([facility])on SARS-CoV-2 (COVID-19) RNA JONH+probe Ql (Unsp spec) Not detected Normal NOT DETECTED [facility] Comment on above: Result Comment: This test is not yet approved or cleared by the [place] FDA. When there are no FDA-approved or cleared tests available, and other criteria are met, FDA can make tests available under an emergency access mechanism called an Emergency Use Authorization (EUA). The EUA for this test is supported by the [place] of Health and Human Service's (HHS's) declaration [...] consistent with SARS-CoV-2. Performed By: #### [facility] #### [place] [address] Dr. Kerri Roberto Coding Summary.on 12-26-2020 Coding Summary. CD:[id number] Gh0bWw+PGhlYWQ+PE1FV GLgT91owXKopJ0SE3jIE A5KYRZTMVTYSN5IUP6zr TS2VBqpW1ChvtAk JwhryIYxJV98ZHs1YPH6 fVagLSwqpA1caOLfA5n7 KoHoAF14vK55EOydAPJe XoC4TeHapaxpeWTq Y6ebSsRhjPTgJab+PHRh YmxlIHdpZHRoPScxMDAl PpQnvQvsFW7gMg6qCGKl LWNvbGxhcHNlOiBj d0tyWNXlSBoiQS8bpThg F9UigIG2INYaw8y5Gm51 dHI+HLYmDXX9rIxjNKlu l392PiBct4opXQY1 tEUoAShgCPE1J78er2B2 YOXfVCKhEWZ7bMU1hD8y wJgeoxxnK0UsiGZqUeS2 YOX3kUYfpM6itRkq pbigfP2cYmz+Y46MUW6R XLBXQG0VSuc1K1StCxcx dHI+VM22NADoGN27rGPb mWMjm9lyqCu3NeCl JGMjHFJ5oQykUWvpl2Gu XFKnU94yqXWpc0D9TIDs eDzpbJQlYoNdeDU8eN9e NTowhfbxc9dffpzu Lvynw5fkcc47tD34C13m QCpyHQGoBHA8LPLtEZYa gAtfey0rbA1nVy3+IDxj m4idv0homOg2MrMs HKDluuAhhNnqJJQ3n3Vx Xk75A2ZuoYhel8VnQab4 kp26tCCdi0M4lXY7OIbc TTQmvO8qNQhfYdM5 XCNvRdAvwH39eWUbKSjb Rd3hpXxoqJooPP9vEQXs pdhzIOLajZ3bAIEsfNOs cVwbRC4vYZOftcub o093LvGwTDZ2YUTxlSPk A4DbjD0nIvBtIIQlTMYd A1UvxDPtNTqcZ890XSvm DnQ3LLHtgsFtZ6Xx CEOwtPvmVbR4l8F2Lf2H s4JarcocJKW6DGhkMBV0 WrLwNpPlPpA0I3DcMap5 WQHacZvoGW4xQ4Li VOMkzowjnpfuoRS4KTXm MELngO74lERtAQcnYh4l p6I4d256CYWbLWHbhQ91 Tg9naRstGYRxuGBU xV7brfzdj0axfoylAuSk QHLkXMl6WJi8OSZaqVaw BhCaZAQ5QiX5EAO4pPYb sH7cdFjxfgkhhX8f Oyc+K16uhV9mILX9FGC9 objyKIZcstNfEF25BZ31 P1DoDqwakDSqsRC+PGRp irCmhUqkJW2xBpHp l3dgb2YfKAdaD5ImHLMc RPyvMfj7DILyFBO4eTC7 yV3wWFOkCWahm3G8bJY2 T7SmvcXhnb3tu9ki DNMlQGtbJ66hlPYmb0C1 UBSfjCG7AJFxcNwbXrGg uU30Hbq+YXOnaSzck8Qx Mtfgs4nsf6maxDw5 IjMwJSIgdmFsaWduPSJ0 o1NtRv02E29vPYmdZEAf FRKuJXSeTFBgeSolbb0g eB8yWn4+PGNvbCB3 lPT8hH7qOBQhLgF7RVkx V690IsLwuSPzGekfv7ki a5uyqMv0BiVlUXXzpqQi rOivLXE1a4ZeBy32 G64mFDzpOOTgIRGtZWMt UNFiuMbkng0idE3hHi3+ QH2wi9thyl51xW06fHV+ KHVzUJH5rKnoXYka QSNtmN4fZNlmJvS7ZBGe LeKemN01hBQuQJrkQq6g zTkanImbCB9tEOZibbrq a262TcEtj6orXMBq jXXlOXwdIFK5H39kl0Y9 OSYlUTYxDHV1eZH0mW4y bGlnbjogbGVmdDsgdmVy hLacNSwhBBhdO866 IHRvcDsnPlBhdGllbnQg AdSpKRs6S0AxJxl0CBIl pKgeJA4zrYNcHGwnPd6g vNtykBxsHQ9kOFAg zhcni470XkOad8ioRSOz gMSiEScbQJK0B15db7W3 ISTlWGHnKDA3oYS3oJ8s bGlnbjogbGVmdDsg tjXisVgqDPacTRgsV838 IHRvcDsnPkJpcnRoIERh cCB8LC22UR48dOZdk2L4 gHF5K8FsEYIdmsrb mxvvdDU8XYIqQDHbjX37 Ll1svBjpLd6wDOWkYOF8 LMFasFWhO1ByjB6tZiEx APMzDBOgB3IvgPXr VOqbO335GLhfRwX4TFVn wfGoV6JzRVCglBpcUhE2 f6K4Tj3XR3E0AM19RP54 qFWbn0J4zXL6R8Fr EWKzhmrlonnjuYM7MGLj XGXbxE98Uo0kgJsgSq1c BGNkMOP0WOEwjDPuQ0Ks dJ7eFwJcZSHdYAZu V6NbtSIsHZbmG576SCsv UyD2OYVfopEkG4VbBLDu iLjyTgC6b1G4Sp5AUAq0 WE50JI52bGAkr2Z5 hCG4B6MgIUJrrjlhmxdb zHX3IQNtPMBoqW73Dz4r rEpvSe0dYYMoLSM0BXIj eGUvK1YibG6gPiEp QAFpXVFoB7NjuVCbUDdb U557NRcxOcP7UYEokvYw E8QkOYOmoSnlTpK8k3T1 Cu6TUEOkZS60XZQ7 gWE0QP22NK14M6LpQajc dGFibGU+PHRhYmxlIHdp ZHRoPScxMDAlJyBzdHls DR9tYv3wBXXfWJLy yYgcjPVkIwAni7hkYMGy XGjwXN2xtQrsV1LogUB2 EBCvn4u6Qq52P29aE4Kq dXA+CKSsmFM2lIN0 nA2kEfZpDaN9BOatW569 GjMsgOWmGujxo9zlc3em aDt7PwE9YEVzdcRwaTcl CAX4y4YhPl40G22i IHdpZHRoPSIxNSUiIHZh wMdnaq8pdX5wNe9+PGNv rVJ5lEJ1tN3wFnViWiZ9 SChdH921FcOmnURr Zysew5vut2mdsGn5GkBf KKGmgmVbbLxvHNV8o1Bo Pn21Z5NsnPqcz8ZpGna2 sy73nIWdp5G1kIX4 N0VpAXPqxsuplACseSsx WT5iHGGycqoxJBGktI5a HQUpP4n7DbFvUiA4HFhs F6BmjfM5FMOaeWGz XQxcEOY7J66ij1D5ZUFr NUQoRYU1kWJ3aN0vpSao bjogbGVmdDsgdmVydGlj TWfaESbiP954AQXw kQqrWQXfoI7xJPJupDTn mEoeTG1fPHZnvaiuKgqA TlRRCsxkNnKHCYNWER95 FR36wLKgh0X9gVK8 D3FiGSAolvrahfbutIK9 UVImLTGhlW42yYSzKNxy Kf7eq1Q7r653BHUjHDEy zF73Lv6thWvfZRKs iSJTfM9wsdmod2tbdakl YuNqLRSuLBs6BDm6RPLr rOytLtOyMRJ5FyG0TAA0 sHHztL0grCoostvh mV7hHdt+MTEvMTQvMTk4 OTwvdGQ+MLZwQRJ0vHmq CTeiQGNlfM6vHOJsC0x5 OhVkOzC5XQosD0Kr HJUahpnnBj43zC3sPvDj PxX6LTsjB4QcztE1GVHm lJVjOIyiBEK1K33zc9C6 YVXwHPReZNX6oUV4 cJ1nkOmsdiareVAuqJoi saLzoGccFLnwHUcwP824 IHRvcDsnPjMxIFllYXJz LJ03MJ87uJBjv5Q7 zUQ9O7HxEDNbtxkzliis pZN1TUKbIZYsjY24uUZx WVabNr2zi1A2m315FIXt NQTxxL42Mf7ycJne OMDwuJCPvF2ipwlev9ar ilhrLdLbRSJjMVm9DPz1 RGMxaSktHmEoWKD7EhL7 UHW6vWAqxD8knErl dxbtyA6dXry+RmVtYWxl PD11BS93aLHzw2Q3gUN9 Z3HrFMXuedghhrhowCN1 QNNyVDZbiS03kAPs OWopVf4gs9J3k391HTVc NVMjqO92Zs0elQwiLLWu fXJPqX4pgygxk0jtxyuc OoMiRGPuTUg5LBa0 LWVhnSoyZpTfMCL0GnM1 FXS7fRPpeA0peVpkehlg fO0sUuf+L8GyHFJ2HNKz b111O3SdHpyegQT+ LI16KRCeJY62hPZjvYWi b6aznZl9YuSpXVByZJT3 bErkXKebq5ZxKHEnO16v iGTry9E7ZRRsaXzw vRKjMqMzvQR4eX5fJDgj fozjf5spwdmjZxgxf5ka oe42pX20W94eNWkmACJa PSIzMCUiIHZhbGln sz5fmG5pOf6+PGNvbCB3 wLP6iK3rBuDgNtF6NJsq K641XtLecLSpWmrlo1mb d0oliHm3XoLsZXQd upFllHdxPVC3w0XkAc78 A48gWVhyRFAlLDNxTOXy OBWknYcdbn0spR9gIb2+ AV1pj8mrhu39cZ00 dHI+MHThATX6hInoWMyf PYWmsF4mSMrnEpQ6MSMx WjHeiN03rALyOTgqYv9e yEblsBkkTV0tGSWw onsje634DnFjt1gyJTCm nHVdRJcqRHD7E51ai8P6 MEFnKWCsVAS7uBR3uB6s bGlnbjogbGVmdDsg cuZobSvbNInbTJpuQ750 BKPlfZruBbDznOHvM5lc weQRGR9dAypvrQG+PHRk ZNC7cYpoCFzqGFUl hX0pZMImV9k1VwKkZfL3 HJzwE4XjflQ6WXAmqYOv YVRbcZPFrE2ndblcl0oc cjogIzAwMDAwMDt0 EAn6HSJyuZyhMnYwDSR1 NqA6JUZ3aUMewM7jiKcw jrdioQ4rKtw+RklOOjwv dGQ+RDUpRIG1vPkh BBaeVRGvmM6kCACkE7m2 BoJtJlA9LDytM2OblmP9 PZEwhREgRDAuqMZFdD0k etign8jprgfeJsWr EBCrNHr6UEj4RDAqlAxa OfRwADD9DwW8FBS8yMDj tK7mcMxecqkxiH9iIsr+ TVJOOjwvdGQ+PHRk LEO5bAdiXLmcRVTimY6k XSZsA7r5EhCiInX8XHsu T3PoxsW8VFCkhPFoJKZb eEOGoY9hvfpvc5mb iexiZmAxGKDcFSp0OLy6 HHNhcInqFtXnWVW7DlB3 MCK4xRKuuV7szRbmkohn mE7xZdu+OJZ9QGS4 ZC54IU40X6RdXioxqVId bGU+PHRhYmxlIHdpZHRo NPqdNENeWsOblBlpRM5w Ef9gLBMzWSDoyNvs cHNl (more content not included)... Normal [facility] Coding Summary.on 12-24-2020 Coding Summary. CD:[id number] Gh0bWw+PGhlYWQ+PE1FV MZbZ70huEQvjH1RQ1wMA F1YLEMCQYCVCV0BCZ5hu ID2VRczC5KsceHa QldkdUCeEU06HFj8QIJ3 pErgTVrtwJ3npSUsZ5z8 RiBnUQ25fP46SQwxKIFh LaA7VhSxadohmRTu G1daIhEkaHSkEka+PHRh YmxlIHdpZHRoPScxMDAl NuNxfIehEC9nBr7zEIAv LWNvbGxhcHNlOiBj l8gdIZNmOJhwLL9gwUlh Y9VjqWT0AWHds7q2Ll73 dHI+LTBkYEE1oEpaUWep g292BeOha3psCEU9 kKNrESycNZD4M03ui3Y5 NAQhYQSuOPH3nBG9oS9g gNcacalqJ4JxlLHnNuE0 GRJ9kSPovW6rsSiq cohtaC3vGdy+E16AJA1P APGHJG2MJyp7U1NoDvcb dHI+RT92FLTbIY12fSGf mEGao8dfeFr8XcNv VOFgDXY4pRhaOOezj4Pq NSJzL61iaVObv0U9CURa eYuwfCMbVcVqiHW6qE7w FGifeaibr6stwjkn Epywv2kdxo96pY78H77b BGweWMOoHYN5FBJePKGc gNsdlq2gnR6eKi5+IDxj d5zdt3enzCb7SrFh OLBwolFebFppCMJ6q3Ls Ql60P0GjiFzgj3JtTfg5 qk99vUUzs5S6wGU4ZFkc VBXtuS2wMEdzOpZ1 XKSwTcXdxE54fNFfJSkx Jh5neTqarNkiED5oSVTh jdmuKHGsmI2yNEIpyFYk lQmfLQ1kUOYdcseu r549KuNpMLY7PSOikWXh T5KeoZ2lDuSuINPwWMFv M1JhxLZdVPzrB709NRgr MlE9JILoyaXbZ6Gu RNSpyCoxTpM3i5A9Gy0J k6ZcljtzJTD5LEsfATD0 VcHfXyQtDyA8X4IyZzo6 VVFfuRcvXT3lS7Ci QFHstzvhkdttsAF8OWMw EONioW39tTEkIXpoAs0j m7K0c384YWRnIWAbcN94 Cz9mxDdzQYAljNTA iV8rvpvxx9hddcvdIsDz ELTjJMn2HDe6SMFcnFhd PoNySMW7JkO0QZB3eGFh oT9oeRpjpzwqzI9w Oyc+K73vpT6xDZL4EBK9 xncaYPTkeuXiRM21QP45 E5ZlWbryfGYftYL+PGRp dpSfoSfdAB0gCvEs i8zbq7MkSOfaQ7MhBDOk VXsrGez7ZGIqTYH7bEL0 iI9aARTmBQlrx2B3uPD8 A0PbspWrlz1ho5bq ZTIxIPotH30qaNRlq2W6 BMVggLI1CVZrrQmwFhMi hN49Udm+QVAtzQwec2Ua Ymbud6feb2virWp0 IjMwJSIgdmFsaWduPSJ0 s2CgVw21Y19wDEgxBMOy GWEuNRQhKBWjrElrem0o uO9wRd1+PGNvbCB3 hRW7yV6vXWKgIiG3WWgf B499IgWzhEJmYjgab8zs b4btvWm8OhHqHKWwhlWm aOuoBXC0v1ZaQj10 K01dGZmxKFCiEPEpBHAd OCEvuQmnac0rgQ4yJi3+ AA0bo5wfsh72fV69cXM+ MZNxSXN9qMmiQIss QDRnsQ5vWMgcIzF1BUFo GsNtaM02qPScWSyuZe8a lAyzdBehXB5vHBEnlgzk j300HcTvl7rpHNKk lHAzVXtqJSQ9N94aw1R5 EWQdYHQtWOV7pAC4vW9j bGlnbjogbGVmdDsgdmVy qYgmLJddAFtwP212 IHRvcDsnPlBhdGllbnQg DiPaWFc8O6AcEwt3AGIu aEddRM4gxSBeDTgvTm5d xCmwfEbqVQ2cHIBw bcrvu901WaDym8ejDDTy wSUfFZusPVM0J00ih3Z6 ZCDgABFbMIN3wCR6bC5v bGlnbjogbGVmdDsg gtBiwGymWPesCZozF550 IHRvcDsnPkJpcnRoIERh eHB5KV09UO10jDNcf2B1 qFR7G9XyLJHmvlev idvnsOE0GHUcFFMkkJ81 He3bhKozJa5pZSGnRPI4 VBYlkRQhZ0GocB0hIgWd PBGxIWDwS4ThmSOn KBtsU641JVagSoE3JYOw paFkL0NdJMKorVpyTqF6 c6R0If3VC5A8TK25GX40 eZDqe7E4sRP3Y8Nh EKXdqgdpdvdauMM4KTBu HUHwrP01Sb9liKfhPu5j WYGvEHH4WOMayCTgP4Pn qO3tReEiPEEwTYGc Q1JlqRGnMCcdV534KKmg AvL1KIVuqfPuB2EzYTPn tXfdYoP7e3I7Dj5ZWLw4 DS64VS92gFXdh4D6 wDC0K7EpZNNvwwydrfne fER6VZGwAOEqvA98En0c cPmtIj7oHRIpNJL0KLFc iDDbS3EfsL4xHkDc BNWuDWMcU8FspZVuALhs R210MHblSeD3GTAtqvKm K8EsWTPhfOloZpM3m1J3 Uc8TETVjDZ34ALL0 nCJ1VH35NX06Q2ZoVwhn dGFibGU+PHRhYmxlIHdp ZHRoPScxMDAlJyBzdHls PE2eRm3vDETuUUVe kSzwrKZzVkAip8elDUHk IPefYA7zyPeoJ2PuaAF7 AQXbu9r9Qn02B07xX4Cd dXA+UYMsdSB1fQY1 sE0xQrOwMyJ0TQhsI369 OrGxuDQgTvucm3azw7kq zBt9OsJ2WKLzqtSprVoo VIN4r6OdBe39Q64q IHdpZHRoPSIxNSUiIHZh jBrzfh9kzF1qQt9+PGNv xGZ2sIV7bY3cLrCcTcC0 CWgcX105LlBnzSMl Iocka8ebo2zxwNt2ViPm CNEemgQogAquEBM3k8Jd Ax00W6DpsHpvo0EsDwb3 jo76nVDlm9A6sHC3 M4UfQKPyyuokzTVyvDjv JF9sSXPmbdhsSCDkjO8r ZWJnB6i6WhStNkV1DChu M3EzcvO2VQMrtWCu EDltIZE1A44uy8M3AOJo SFVeJPH3dXO3bI6srAif bjogbGVmdDsgdmVydGlj QErbJRrsG965YNGc iEktETQngH3qCVGhkKPh oVfuMQ0gORSvrgxwMqaO DcWQHfimMyPAFJSFDX91 VL37zMPjq0K0fSB5 I6SjRYGflynbxvrfxEB3 FKZmTYVtbF00zGQuEQgt Rr6tb5K8d716WSIhFUWx iH81Bv9hrLjgTSNa oWNQqT9ywxqzz7phqxcc BbHfJHOkLVy3PZs9ABRn qSkjJaXjIUV2BtT8DXN1 fOZmbD5hsGxxamqc mC9zYad+MTEvMTQvMTk4 OTwvdGQ+ICJdRJB7cGai ISwbTVLvlF3nMBTyS5q2 KlIgJtG5UWqdT0Lb BUWrmidfGt69lJ3fKsMn XfJ9MSfwA1OfrfL3CZZl tLLkDZofNXB8Q10fi2P0 AOJkKISdHJV7sXR0 jE2usVchhsldmQIhoMoe asNhmTaxPWifRIxjI611 IHRvcDsnPjMxIFllYXJz GZ70YY73fNObm7N5 vCU6N7KfGVDperavvzno bCG4NWDiIKGjyO34pJKm VWrcUe0vp6E2g337ZOXs AOBgrR33Sa8vgMas EATtgYMEdO9oldhaj1qg mpybBqOuSUYdFZi2WSg1 TVQqxDaiVqCtJGP1WbU8 GAG2xIWniC3vrKuu geeolU9uUmy+RmVtYWxl AF21RL60wQOuu5Q6qJZ2 I9IePOMuypusyjldoIT2 VHCaGFAgyV89eMRa BKzpHe5bv8E7t407OEJl THDwlZ48Xb0vvQviSVTm yHOTzN7lhnplx3fhhrnp AzLuOBZaIYv9WHm3 DBYezGjwUiIpLNR5CzE6 QVO9aZFbnL4nhScutxeb lO6mZcn+GK7xmlpzpiZ9 FO65EI80Y6SrNbgh dGFibGU+PHRhYmxlIHdp ZHRoPScxMDAlJyBzdHls SE7dWx3zRLSpUZIxpEaw iESvFvRok2wzYAXo PSscYL0mnWyjJ2FyuJA1 GCZco8a9Ok71A86tM9Aa dXA+FNKdkFJ6nYF1eC1w ViEfDmN1FYkkA338 LcRfdBAlGpcsd2gph0qg eXs1KeKhGVQcsrRcxXyi FDI0m8WmOz16K77aYIku ZHRoPSIyMCUiIHZh qJolhi6edV8dAq1+PGNv oIG7sHJ7hA1jGsQbRcY5 PDhgF278DiEnnOGaDndz Z25jQ4NgbHQ+PHRy Ody6XEPzfEjfUG0riNXd WOxrRj7hIGL8OaVjZwRj YIdfO5KoHCBvjrixjnhm rAD0RIEhKAZpwA09 Ys8cfDygCl3aLRQwBBB6 OFOkvEWuL0BzvZ1fOxYa NHFuCOKgC8UedHBhXNpo D568GIjnZtY6HXDn qxCeU0YgPESceBytSiS6 a2G9Ev3JeVinsRVwDU8w IwHeXMi2Q1JwAzb3UZSs uLepJV3qhFKcRPrf Da6hwPdcgVmnOH6rWFFg meses683CaVpd8unVWCu kBYwPPrgZON1F09rj9E1 ANNvQNCvLTC9pYJ9 vH5hfFymdphnnXSpzOry trYnkYmeQEzmUQtjT104 TKJsuSlnYqGZXnj5Y3Nd Tfb1GYBmvVirXQ2l iYWrVMdpQv0tjGrnaKjw KF6pHVAbqtywz205VjQo a7zzSSRkqWSaSJoaSQK0 H00tm2J9FCRkFREu WQG0gHE7yP3pxLytdsdz bGVmdDsgdmVydGljYWwt WXjqY776VZGqzUzhZw1I Jmg0N2LlAjc5FQBv bDlcFQ3cxAPcPAxwRm7x hHwahDwqMK0lSQDgwqcr d392BrDkp0dnIZImoGYk AJzxEMJ2Z39au4M0 KJGzTGJoBZP6vSB0sK6z bGlnbjogbGVmdDsgdmVy hEbmAPinMUlcM380CKSd cDsnPlBheWVyOjwv dGQ+HU45vo46R4EfQdoc Knw6MAEaGFS4fXQ8yN2q KFXmYDypu2L7zMS6R9Ck rbXbxi5qr2vjTBQb ZTog (more content not included)... Normal [facility] C Urineon 12-20-2020 Bacteria identified Cx Nom (U) Microbiology PROCEDURE: Urine Culture [R1] SOURCE: Urine BODY SITE: COLLECTED DATE/TIME: 12/18/2020 02:00 EDT RECEIVED DATE/TIME: 12/18/2020 05:33 EDT START DATE/TIME: 12/18/2020 05:33 EDT FREE TEXT SOURCE: Darien Fischer DO, DO, Kevin M. FINAL REPORTS Final Report [] Verified Date/Time: 12/20/2020 07:53 EDT <10,000 cfu/ml Mixed skin contaminants Performing Locations R1: [facility], [address] [place] [address], [phone] , , [facility] Comment on above: Performed By: #### 1 [id number], [id number] ####[place] [address] Discharge Instructionson Discharge Instructions [id number] 1#1.00CD:127 Normal [facility] ED Note-Physicianon 12-21-19 ED Note-Physician care transferred at change of shift. CT pending. CT returned without acute findings. Patient accepted for admission for pain control Impression: flank pain Normal [facility] Comment on above: Result Comment: Elec tronically Signed By: Yevgeniy JOYCE, Salvador\.lito\Date and Time Signed: 12/19/20 23:07 EDT Inpatient Clinical Summaryon 12-20-2020 Inpatient Clinical Summary [address] [address] Clinical Summary Person Information: Name: FUNMILAYO CONWAY Age: 30 Years : 1990 Sex: Female PCP: Maki VELA PA-C Marital Status: Phone: [phone] Race: White Ethnicity: Non- or Language: German Visit Id: Visit Reason: Vomiting; Back pain; Headache; VOMITTING; HEADACHE Speciality: Acuity: Enc Type: Observation Med Service: Medical Arrival: 12/19/2020 16:38:33 Discharge: Dispo Type: Admitted as IP to this Hosp Address: [address] [place] [phone] Provider Notes: Diagnosis: 1:Myalgia; 2:Headache; 3:Left flank [...] Follow up: With: Address: When: Maki VELA [address] [place] [address] Business (1) 12/26/2020 8:30 AM Patient Education Information: Viral Illness, Adult Normal [facility] Inpatient Patient Summaryon 12-20-2020 Inpatient Patient Summary [address] [address] Patient Discharge Instructions PERSON INFORMATION Name: TOM FUNMILAYO Alatorre Date of : 1990 Current [...] hydrated with water Take [place] pr[place] [facility] to provide the following pending test results: Follow up: With: Address: When: Maki DANE [address] [place] [id number] Business () 12/26/2020 8:30 AM In the [...] infected with (more content not included)... Normal [facility] Procalcitoninon 12-20-2020 Procalcitonin .05 ng/mL Normal .00-.50 [facility] Comment on above: Result Comment: <0.5 ng/mL [...] to 24 hours. Performed By: #### 2 [id number] #### [facility] [address] [place] [address] XR Chest Single Viewon 12-20 XR Chest [...] Reuben Woodruff M.D. Transcribed by: LILY Technologist: GLEN Bates [facility] Auto Diffon 12-19-2020 Basophils/100 WBC (Bld) 0.7 % Normal 0.0-2.0 [facility] Comment on above: Order Comment: Order Added by Discern Expert. Performed By: #### 2 656118, 2052247, 3069725, [id number], 5559138, [id number] #### [facility] [address] [place] [address] Basophils/Leukocytes Auto (Bld) [Pure # fraction] 0.1 E9/L Normal 0.0-0.2 [facility] Comment on above: Order Comment: Order Added by Discern Expert. Performed By: #### 2 998255, 1455085, 4162156, 17313307, 0553977, 2092161 #### [facility] [address] [place] [address] Eosinophils/100 WBC (Bld) 0.6 % Normal 0.0-8.0 [facility] Comment on above: Order Comment: Order Added by Discern Expert. Performed By: #### 2 832953, 0619299, 7618277, 69087485, 5957599, 0751086 #### [facility] [address] [place] [address] Eosinophils/Leukocyte s Auto (Bld) [Pure # fraction] 0.1 E9/L Normal 0.0-0.5 [facility] Comment on above: Order Comment: Order Added by Discern Expert. Performed By: #### 2 891532, 7164597, 9445076, 08181194, 9418756, 3979012 #### [facility] [address] [place] [address] Lymphocytes/100 WBC (Bld) 29.4 % Normal 14.0-50.0 [facility] Comment on above: Order Comment: Order Added by Discern Expert. Performed By: #### 2 597330, 8697969, 5611735, 92040245, 5430462, 8940640 #### [facility] [address] [place] [address] Lymphocytes/Leukocyte s Auto (Bld) [Pure # fraction] 2.5 E9/L Normal 1.0-4.0 [facility] Comment on above: Order Comment: Order Added by Discern Expert. Performed By: #### 2 151438, 5682631, 5909456, 41974681, 6414723, 1179228 #### [facility] [address] [place] [address] Monocytes/100 WBC (Bld) 7.8 % Normal 4.0-14.0 [facility] Comment on above: Order Comment: Order Added by Discern Expert. Performed By: #### 2 100428, 0443616, 9787232, 07889953, 4510647, 8079929 #### [facility] [address] [place] [address] Monocytes/Leukocytes Auto (Bld) [Pure # fraction] 0.7 E9/L Normal 0.2-1.0 [facility] Comment on above: Order Comment: Order Added by Discern Expert. Performed By: #### 2 207546, 9211035, 7090324, 07177185, 0109570, 8370256 #### [facility] [address] [place] [address] Neutrophils/100 WBC (Bld) 61.5 % Normal 36.0-75.0 [facility] Comment on above: Order Comment: Order Added by Discern Expert. Performed By: #### 2 362558, 6186018, 8465514, 23686802, 7694870, 6343594 #### [facility] [address] [place] [address] Neutrophils/Leukocyte s Auto (Bld) [Pure # fraction] 5.1 E9/L Normal 2.0-7.5 [facility] Comment on above: Order Comment: Order Added by Discern Expert. Performed By: #### 2 653505, 1555734, 9529577, 29040700, 8306850, 4726348 #### [facility] [address] [place] [address] CBC w/ Auto Diffon Erythrocyte distribution width (RBC) [Ratio] 12.7 % Normal 10.9-14.2 [facility] Comment on above: Performed By: #### 2 901970, 7917504, 8892850, 19957943, 5270997, 3407619 #### [facility] [address] [place] [address] Hematocrit (Bld) [Volume fraction] 41.2 % Normal 34.0-46.0 [facility] Comment on above: Performed By: #### 2 922485, 6296106, 7150552, 36529848, 1726378, 7214508 #### [facility] [address] [place] [address] Hemoglobin (Bld) [Mass/Vol] 13.8 g/dL Normal 12.0-16.0 [facility] Comment on above: Performed By: #### 2 624154, 9461857, 1721043, 87263822, 6735009, 6913997 #### [facility] [address] [place] [address] MCH (RBC) [Entitic mass] 29.6 pg Normal 27.0-34.0 [facility] Comment on above: Performed By: #### 2 876349, 8932440, 7842698, 82352566, 7648869, 2723214 #### [facility] [address] [place] [address] MCHC (RBC) [Mass/Vol] 33.5 g/dL Normal 31.4-36.0 [facility] Comment on above: Performed By: #### 2 143586, 5747434, 7551868, 66337188, 9368906, 8335407 #### [facility] [address] [place] [address] MCV (RBC) [Entitic vol] 88.3 fL Normal 80.0-100.0 [facility] Comment on above: Performed By: #### 2 683257, 5971478, 7535899, 81076204, 7064866, 0137627 #### [facility] [address] [place] [address] Platelet mean volume (Bld) [Entitic vol] 8.3 fL Normal 6.4-10.8 [facility] Comment on above: Performed By: #### 2 838544, 5751370, 9369891, 73001060, 5045547, 6343747 #### [facility] [address] [place] [address] Platelets (Bld) [#/Vol] 188.0 E9/L Normal 150.0-500.0 [facility] Comment on above: Performed By: #### 2 413709, 3214231, 6359141, 64106664, 4702338, 8277385 #### [facility] [address] [place] [address] RBC (Bld) [#/Vol] 4.7 E12/L Normal 4.3-5.9 [facility] Comment on above: Performed By: #### 2 724052, 5990911, 4830063, 79104306, 6967536, 2850423 #### [facility] [address] [place] [address] WBC corrected for nucl RBC Auto (Bld) [#/Vol] 8.4 E9/L Normal 4.0-11.0 [facility] Comment on above: Performed By: #### 2 747398, 0648931, 3304667, 99330150, 3617069, 2330993 #### [facility] [address] [place] [address] CMPon 12-19-2020 Albumin [Mass/Vol] 4.2 g/dL Normal 3.3-5.0 [facility] Comment on above: Performed By: #### 2 556829, 6933538, 3931178, 66275708, 3233037, 3275626 ####[facility] [address] [place] [address] Albumin/Globulin (S) [Mass conc ratio] 1.0 Low 1.1-2.2 [facility] Comment on above: Performed By: #### 2 752189, 2551718, 3439080, 55815550, 0886433, 9215849 ####[facility] [address] [place] [address] ALP [Catalytic activity/Vol] 44 Int._Unit/L Normal 21-98 [facility] Comment on above: Performed By: #### 2 441288, 3003067, 6135013, 17199912, 9156391, 1582928 ####[facility] [address] [place] [address] ALT No additional P-5'-P [Catalytic activity/Vol] 22 Int._Unit/L Normal 6-46 [facility] Comment on above: Performed By: #### 2 765704, 2693890, 8016732, 66803091, 3670311, 5939831 ####[facility] [address] [place] [address] AST [Catalytic activity/Vol] 18 Int._Unit/L Normal 5-43 [facility] Comment on above: Performed By: #### 2 882365, 8434551, 4418045, 77139350, 7987819, 1244306 ####[facility] [address] [place] [address] Bilirubin [Mass/Vol] 0.8 mg/dL Normal 0.0-1.1 [facility] Comment on above: Performed By: #### 2 416511, 8934374, 5692594, 56727947, 3692796, 7310255 ####[facility] [address] [place] [address] Creatinine [Mass/Vol] 0.5 mg/dL Normal 0.5-1.3 [facility] Comment on above: Performed By: #### 2 340552, 8234666, 8140913, 03971084, 9242698, 3081760 ####[facility] [address] [place] [address] Globulin (S) [Mass/Vol] 4.0 g/dL Normal 1.4-4.0 [facility] Comment on above: Performed By: #### 2 271433, 5170836, 4359949, 85288123, 3649869, 3382121 ####[facility] [address] [place] [address] Protein [Mass/Vol] 8.2 g/dL High 6.0-7.8 [facility] Comment on above: Performed By: #### 2 602782, 4171992, 1821932, 70621811, 9506777, 7412733 ####[facility] [address] [place] [address] Urea nitrogen [Mass/Vol] 6 mg/dL Normal 5-21 [facility] Comment on above: Performed By: #### 2 406085, 2367298, 2971885, 36186436, 7495956, 7682814 ####[facility] [address] [place] [address] Urea nitrogen/Creatinine [Mass ratio] 12 No Units Normal 10-20 [facility] Comment on above: Performed By: #### 2 667314, 8749539, 4888705, 37568541, 3986499, 9011835 ####[facility] [address] [place] [address] Anion gap [Moles/Vol] 14 mmol/L Normal 6-16 [facility] Comment on above: Performed By: #### 2 622152, 5690447, 1316732, 44831588, 6101997, 4284693 ####[facility] [address] [place] [address] Calcium [Mass/Vol] 8.9 mg/dL Normal 8.9-11.1 [facility] Comment on above: Performed By: #### 2 007253, 4173338, 6038715, 53942412, 3779537, 2162479 ####[facility] [address] [place] [address] Chloride [Moles/Vol] 103 mmol/L Normal 101-111 [facility] Comment on above: Performed By: #### 2 478140, 6281936, 5831931, 38518758, 5478853, 4817753 ####[facility] [address] [place] [place] [address] CO2 [Moles/Vol] 25 mmol/L Normal 21-31 [facility] Comment on above: Performed By: #### 2 418766, 4589831, 0938942, 49216067, 6734207, 4632418 ####[facility] [address] [place] [place] [address] Glucose [Mass/Vol] 90 mg/dL Normal 55-199 [facility] Comment on above: Result Comment: If t his glucose result represents a fasting glucose, interpretation should refer to the following reference range: 55-99 mg/dL Performed By: #### 2 282315, 0467534, 6900684, 40290256, 3705852, 1112886 ####[facility] [address] [place] [address] Potassium [Moles/Vol] 3.8 mmol/L Normal 3.5-5.3 [facility] Comment on above: Performed By: #### 2 607370, 3241748, 9459829, 84475034, 3647057, 3418446 ####[facility] [address] [place] [address] Sodium [Moles/Vol] 138 mmol/L Normal 135-145 [facility] Comment on above: Performed By: #### 2 585859, 9015656, 6141969, 10533255, 4510740, 2089168 ####[facility] [address] [place] [address] CT Abdomen/Pelvis w/o Contra ston 12-19-2020 CT [...] and spleen are not included within the nqznh-ow-gmad of this renal stone protocol study. The [...] Oral contrast amount in ml's: 0 Normal [facility] Consent for Treatmenton 12-05 Consent for Treatment [id number] #1.00CD:127 Normal [facility] ED Clinical Summaryon 2020 ED Clinical Summary [place] [id number] ED Clinical Summary Person Information Name: FUNMILAYO CONWAY Mariah/[facility] Age: 30 Years : 1990 Sex: Female Language: German PCP: Maki VELA PA-C Marital Status: Phone: [phone] Visit Id: Visit Reason: Vomiting; Back pain; Headache; NAUSEA AND VOMITTING SENT BY PCP Speciality: Acuity: 3 Enc Type: Emergency Med Service: Emergency Arrival: 12/19/2020 16:38:33 Discharge: LOS: 000 03:58 Checkin: 12/19/2020 16:38:33 Checkout: 12/19/2020 20:36:01 Dispo Type: Admitted as IP to this [facility] EVENTS: Event Name Event Status Request Date/Time [...] 12/19/2020 20:36:01 12/19/2020 20:36:01 12/19/2020 20:36:01 ADDRESS: [address] [place] [address] [address] [facility] [id number] PHYS DOC NOTES: MEDICAL INFORMATION: Prescriptions Given: Medications to Continue with No Changes Other Medications cephalexin (Keflex 500 mg Cap) 1 Capsules By Mouth every 6 hours for 7 Days. Refills: 0. ondansetron (ondansetron 4 mg Dis Tab) 1 Tablets By Mouth every 6 hours as needed Nausea/Vomiting. Refills: 0. PATIENT EDUCATION INFORMATION: Instructions: Follow up: DIAGNOSIS: Normal [facility] ED Note-Physicianon 12-20-19 ED Note-Physician Basic Information Time Seen: Jhon Shiva WagnerPrincess 12/19/2020 16:49 Chief Complaint From home, patient [...] (12/19/20 17:3 (more content not included)... Normal [facility] Comment on above: Result Comment: Elec tronically Signed By: Shiva Ferreira DO\.br\Date and Time Signed: 12/19/20 19:19 EDT ED Patient Education Noteon 12-19-2020 ED Patient Education Note Normal [facility] ED Patient Summaryon 021 ED Patient Summary [place] [id number] Patient Discharge Instructions Person Information Name: FUNMILAYO CONWAY Age: 30 Years Arrival Date: 12/19/2020 16:38:33 Discharge Diagnosis: Primary Care Physician: Maki VELA PA-C Provider Information Primary Provider: Shiva Ferreira DO Advanced Plug Maker:None The exam and treatment you received in the Emergency Department were for an urgent problem and are not intended as complete care. It is important that you follow up with a doctor, nurse practitioner, or physician?s administrative assistant office manager for ongoing care. If your symptoms become [...] opioids can be used to help relieve eiivsxpk-rg-ycowvr pain and are often prescribed following a [...] be struggling with addiction, tell your health child day care center worker and ask for guidance or call [facility]?S National Helpline at 9-939-609-HELP. v Source: [place] Department of Health and Human Services/Center for Disease Control & Prevention [facility] Medications Given: Medication Dose Route Sodium Chloride 0.9% 1000.00 m (more content not included)... Normal [facility] Lactic Acidon 12-19-2020 Lactate [Mass/Vol] 0.8 mmol/L Normal 0.5-2.2 [facility] Comment on above: Performed By: #### 2 614868 #### [facility] [address] [place] [address] Lactate [Mass/Vol] 0.9 mmol/L Normal 0.5-2.2 [facility] Comment on above: Performed By: #### 2 402512, 7392293, 3047541, 58738169, 9260960, 9683353 #### [facility] [address] [place] [address] Physician Orderon 12-19-2020 Physician Order [id number]#1.00CD:127 Normal [facility] Troponinon 12-19-2020 Troponin I.cardiac [Mass/Vol] 2.30 pg/mL Low 10.10-27.10 [facility] Comment on above: Result Comment: The 95% CI (Confidence Interval) PPV (Positive Predictive Value) for myocardial infarction in females is 38 pg/mL, in males 51 pg/mL. The results should be used in conjunction with clinical conditions of myocardial infarction. (Access High Sensitivity Troponin I Instructions For Use, [place], January 2018) Performed By: #### 2 439119, 8525001, 8472651, 34547262, 2748747, 4416678 ####[facility] [address] [place] [address] UA With Cult Reflexon 2020 Bacteria LM Ql (Urine sed) TRACE Normal Trace [facility] Comment on above: Performed By: #### 1 5263577 ####[facility] [address] [place] [address] Bilirubin Ql (U) Negative Normal Negative [facility] Comment on above: Performed By: #### 1 3629356 ####[facility] [address] [place] [address] Clarity (U) CLEAR Normal Clear [facility] Comment on above: Performed By: #### 1 5449257 ####[facility] [address] [place] [address] Color (U) YELLOW Normal Yellow [facility] Comment on above: Performed By: #### 1 7823835 ####[address] [address] Epithelial cells.squamous LM.HPF (Urine sed) [#/Area] 3-4 Normal 0-2 [facility] Comment on above: Performed By: #### 1 1347109 ####[facility] [address] [place] [address] Glucose Test strip (U) [Mass/Vol] Negative Normal Negative [facility] Comment on above: Performed By: #### 1 2726406 ####[place] [address] [facility] [place] [address] Hemoglobin Ql (U) Negative Normal Negative [facility] Comment on above: Performed By: #### 1 0068041 ####[facility] [address] [place] [address] Ketones (U) [Mass/Vol] 1+ Abnormal Negative [facility] Comment on above: Performed By: #### 1 0481544 ####[address] [address] Shickshinny.plasma/Lithiu m.RBC (Bld) [Mass ratio] 0-3 Normal 0-3 [facility] Comment on above: Performed By: #### 1 4701522 ####[facility] [address] [place] [address] Mucus Ql (Urine sed) 1+ Normal [facility] Comment on above: Performed By: #### 1 3522303 ####[facility] [address] [place] [address] Nitrite Ql (U) Negative Normal Negative [facility] Comment on above: Performed By: #### 1 8793570 ####[address] [address] pH (U) 6.0 [pH] Invalid Interpretation Code 5.0-9.0 [facility] Comment on above: Performed By: #### 1 5896308 ####[address] [address] Protein (U) [Mass/Vol] TRACE Abnormal Negative [facility] Comment on above: Performed By: #### 1 5087993 ####[address] [address] Specific gravity (U) [Rel density] 1.025 Invalid Interpretation Code 1.005-1.030 [facility] Comment on above: Performed By: #### 1 8250155 ####[address] [address] Type of Urine collection method Clean Catch Normal [facility] Comment on above: Performed By: #### 1 5218913 ####[address] [address] Urobilinogen Qn (U) 0.2 {Tg'U}/dL Normal 0.0-1.0 [facility] Comment on above: Performed By: #### 1 5206095 ####[facility] [address] [place] [address] WBC Auto Ql (U) Negative Normal Negative [facility] Comment on above: Performed By: #### 1 8481194 ####[address] [address] WBC LM.HPF (Urine sed) [#/Area] 0-5 Normal 0-5 [facility] Comment on above: Performed By: #### 1 9409691 ####[facility] [address] [place] [address] eGFRon 12-19-2020 GFR/1.73 sq M.predicted among blacks MDRD (S/P/Bld) [Vol rate/Area] mL/min/{1.73_m2} Normal >=59 [facility] Comment on above: Order Comment: Order added by Discern Expert. Result Comment: eGFR is race adjusted. AA=. Performed By: #### 2 616345, 4675937, 8593205, 81898795, 4919006, 5096420 ####[facility] [address] [place] [address] GFR/1.73 sq M.predicted among non-blacks MDRD (S/P/Bld) [Vol rate/Area] mL/min/{1.73_m2} Normal >=59 [facility] Comment on above: Order Comment: Order added by Discern Expert. Result Comment: Grain Trimmer roshan kidney disease could be indicated at eGFR's of less than 60 mL/min/1.73m2. Kidney failure is indicated at less than 15 mL/min/1.73m2. Performed By: #### 2 967698, 5683537, 8099342, 12841100, 5336683, 4940922 ####[facility] [address] [place] [address] Consent for Treatmenton 12-05 Consent for Treatment [id number] #1.00CD:127 Normal [facility] Discharge Instructionson Discharge Instructions [id number]#1.00CD:127 Normal [facility] ED Clinical Summaryon 2020 ED Clinical Summary [address] [address] ED Clinical Summary Person Information Name: FUNMILAYO CONWAY [place] Age: 30 Years : 1990 Sex: Female Language: German PCP: Maki VELA PA-C Marital Status: Phone: [phone] Visit Id: Visit Reason: Back pain; Headache; [...] 12/18/2020 03:52:27 12/18/2020 03:52:27 12/18/2020 03:52:27 ADDRESS: [address] [place] [address] [address] [id number] PHYS DOC NOTES: MEDICAL INFORMATION: Prescriptions Given: New Medications [id number], [address] [place], [place] [id number], [phone] cephalexin (Keflex 500 mg Cap) 1 Capsules By Mouth every 6 hours for 7 Days. Refills: 0. Medications to Continue with No Changes Other Medications ondansetron (ondansetron 4 mg Dis Tab) 1 Tablets By Mouth every 6 hours as needed Nausea/Vomiting. Refills: 0. PATIENT EDUCATION INFORMATION: Instructions: Pyelonephritis, Adult Follow up: With: Address: When: [place] [address] Business (1) In 3 days DIAGNOSIS: Acute pyelonephritis Normal [facility] ED Note-Nursingon 12-18-2020 ED Note-Nursing pt ambulatory to rr with steady gait w/o assistance. urine sample obtained. md at bedside for eval; awaiting further orders Normal [facility] ED Note-Physicianon 12-19-19 ED Note-Physician Basic [...] day(s), # 28 cap(s), Refills(s) 0, Pharmacy: [id number], 165, cm, 12/18/20 1:04:00 [...] VELA In [address] [place] [address]- Business (1) Additional Instructions: Patient Education Pyelonephritis, [...] Family History (more content not included)... Normal [facility] Comment on above: Result Comment: Elec [...] you start to feel better. ? Take hohg-rew-hqfkpkp and prescription medicines only as told by [...] 05/24/2006 Document Revised: 03/28/2019 Document Reviewed: 03/28/2019 [employer] Patient Education ? 2019 [employer]. Normal [facility] ED Patient Summaryon 021 ED Patient Summary [place] [id number] Patient Discharge Instructions Person Information Name: FUNMILAYO CONWAY Age: 30 Years Arrival Date: 12/18/2020 00:55:40 Discharge Diagnosis: Acute pyelonephritis Primary Care Physician: DANE COFFMAN, Maki Vazquez Provider Information Primary Provider: Darien Fischer DO Advanced Plug Maker:None The exam and treatment you received in the Emergency Department were for an urgent problem and are not intended as complete care. It is important that you follow up with a doctor, nurse practitioner, or physician?s administrative assistant office manager for ongoing care. If your symptoms become [...] Address: When: Maki VELA [address] [place] [address] Business (1) In 3 days In the event that this physician does not participate in your insurance network, please consult with your insurance company to find a nearby participating provider. Patient Education Materials: Pyelonephritis, Adult A MESSAGE TO ALL PATIENTS REGARDING OPIOIDS PRESCRIPTION OPIOIDS: WHAT YOU NEED TO KNOW Prescription opioids can be used to help relieve udirepkg-ra-xviynj pain and are often prescribed following a [...] be struggling with addiction, tell your health child day care center worker and ask for guidance or call [facility] National Helpline at 6-504-480-SNQF. w Source: Department of Health and [facility] (more content not included)... Normal [facility] U BetaHcg Qualon 12-18-2020 HCG.beta subunit (U) [Moles/Vol] Negative Normal [facility] Comment on above: Performed By: #### 2 1092088 ####[facility] [address] [place] [address] UA With Cult Reflexon 2020 Bacteria LM Ql (Urine sed) 3+ /HPF Abnormal Trace [facility] Comment on above: Performed By: #### 1 8393173, 0385854 ####[facility] [address] [place] [address] Bilirubin Ql (U) Negative Normal Negative [facility] Comment on above: Performed By: #### 1 3603329, 1063666 ####[facility] [address] [place] [address] Clarity (U) SL CLOUDY Abnormal Clear [facility] Comment on above: Performed By: #### 1 5512260, 0713595 ####[facility] [address] [place] [address] Color (U) YELLOW Normal Yellow [facility] Comment on above: Performed By: #### 1 4179255, 8767557 ####[facility] [address] [place] [address] Crystals LM Ql (Urine sed) Present Normal [facility] Comment on above: Performed By: #### 1 0841937, 7957881 ####[facility] [address] [place] [address] Epithelial cells.squamous LM.HPF (Urine sed) [#/Area] 0-2 Normal 0-2 [facility] Comment on above: Performed By: #### 1 1512787, 9621940 ####[address] [address] Glucose Test strip (U) [Mass/Vol] Negative Normal Negative [facility] Comment on above: Performed By: #### 1 4736211, 8846198 ####[facility] [address] [place] [address] Hemoglobin Ql (U) Negative Normal Negative [facility] Comment on above: Performed By: #### 1 3617047, 1575421 ####[facility] [address] [place] [address] Ketones (U) [Mass/Vol] Negative Normal Negative [facility] Comment on above: Performed By: #### 1 6393694, 6008051 ####[facility] [address] [place] [address] Shickshinny.plasma/Lithiu m.RBC (Bld) [Mass ratio] 0-3 Normal 0-3 [facility] Comment on above: Performed By: #### 1 5258525, 4301941 ####[facility] [address] [place] [address] Mucus Ql (Urine sed) 1+ Normal Fish [facility] Comment on above: Performed By: #### 1 0757976, 9686843 ####[facility] [address] [place] [address] Nitrite Ql (U) Negative Normal Negative [facility] Comment on above: Performed By: #### 1 7015885, 9109689 ####[address] [address] pH (U) 7.0 [pH] Invalid Interpretation Code 5.0-9.0 [facility] Comment on above: Performed By: #### 1 4017693, 9492783 ####[address] [address] Protein (U) [Mass/Vol] Negative Normal Negative [facility] Comment on above: Performed By: #### 1 5197787, 5020343 ####[address] [address] Specific gravity (U) [Rel density] 1.020 Invalid Interpretation Code 1.005-1.030 [facility] Comment on above: Performed By: #### 1 6751711, 1792605 ####[address] [address] Type of Urine collection method Clean Catch Normal [facility] Comment on above: Performed By: #### 1 7592690, 6311766 ####[address] [address] Urobilinogen Qn (U) 0.2 {Tg'U}/dL Normal 0.0-1.0 [facility] Comment on above: Performed By: #### 1 1698390, 1928585 ####[address] [address] WBC Auto Ql (U) Negative Normal Negative [facility] Comment on above: Performed By: #### 1 6475565, 7277604 ####[address] [address] WBC LM.HPF (Urine sed) [#/Area] 0-5 Normal 0-5 [facility] Comment on above: Performed By: #### 1 4741180, 1215109 ####[facility] [address] [place] [address] Vital Signs Date Time Vital Sign Value Performing Clinician Facility 05-05-2023 15:54-0500 Body height 165.[address] Work Phone: [facility] 04-13-2023 10:23-0500 Body height 165.1 cm Jona Bermudez MD Work Phone: [facility] 04-13-2023 10:23-0500 Body weight 94.35 kg Jona Bermudez MD Work Phone: [facility] 12-30-2022 13:46-0400 Body height 165.[address] Work Phone: [facility] 12-30-2022 13:46-0400 Body weight 96.[address] Work Phone: [facility] 06-09-2022 09:24-0500 Body height 165.[address] Work Phone: [facility] 06-09-2022 09:24-0500 Body weight 118.[address] Work Phone: [facility] 03-18-2022 13:36-0400 Body height 165.1 cm Pacc 5 Work Phone: [facility] 03-18-2022 13:36-0400 Body temperature 97.39 [degF] Pacc 5 Work Phone: [facility] 03-18-2022 13:36-0400 Body weight 143.02 kg Pacc 5 Work Phone: [facility] 03-18-2022 13:36-0400 Diastolic blood pressure 81 mm[Hg] Pacc 5 Work Phone: [facility] 03-18-2022 13:36-0400 Heart rate 88 /min Pacc 5 Work Phone: [facility] 03-18-2022 13:36-0400 SaO2% (BldA) [Mass fraction] 97 % Pac 5 Work Phone: [facility] 03-18-2022 13:36-0400 Systolic blood pressure 133 mm[Hg] Pac 5 Work Phone: [facility] 03-18-2022 11:10-0400 Body height 165.5 cm Jona Bermudez MD Work Phone: [facility] 03-18-2022 11:10-0400 Body weight 141.98 kg Jona Bermudez MD Work Phone: [facility] 03-18-2022 11:10-0400 Diastolic blood pressure 76 mm[Hg] Jnoa Bermudez MD Work Phone: [facility] 03-18-2022 11:10-0400 Heart rate 78 /min Jona Bermudez MD Work Phone: [facility] 03-18-2022 11:10-0400 Systolic blood pressure 134 mm[Hg] Jona Bermudez MD Work Phone: [facility] 02-08-2022 15:57-0400 Body height 165.1 cm Khoi Hoy Other Phone: [facility] Other Phone (unformatted): [phone] 02-08-2022 15:57-0400 Body temperature 97.88 [degF] Khoi Hoy Other Phone: [facility] Other Phone (unformatted): [phone] 02-08-2022 15:57-0400 Body weight 150 kg Khoi Hoy Other Phone: [facility] Other Phone (unformatted): [phone] 02-08-2022 15:57-0400 Diastolic blood pressure 78 mm[Hg] Khoi Hoy Other Phone: [facility] Other Phone (unformatted): [phone] 02-08-2022 15:57-0400 Heart rate 77 /min Khoi Hoy Other Phone: [facility] Other Phone (unformatted): [phone] 02-08-2022 15:57-0400 Respiratory rate 20 /min Hkoi Hoy Other Phone: [facility] Other Phone (unformatted): [phone] 02-08-2022 15:57-0400 SaO2% (BldA) [Mass fraction] 97 % Khoi Hoy Other Phone: [facility] Other Phone (unformatted): [phone] 02-08-2022 15:57-0400 Systolic blood pressure 143 mm[Hg] Khoi Hoy Other Phone: [facility] Other Phone (unformatted): [phone] 12-01-2021 09:31-0400 Body height 167.6 cm [facility] Annpamellaargenis [facility] 12-01-2021 09:31-0400 Body weight 149.69 kg [facility] Ricardoargenis [facility] 11-26-2021 13:50-0400 Diastolic blood pressure 84 mm[Hg] Mulugeta Salmon MD Work Phone: [facility] 11-26-2021 13:50-0400 Heart rate 76 /min Mulugeta Salmon MD Work Phone: [facility] 11-26-2021 13:50-0400 Respiratory rate 15 /min Mulugeta Salmon MD Work Phone: [facility] 11-26-2021 13:50-0400 SaO2% (BldA) [Mass fraction] 95 % Mulugeta Salmon MD Work Phone: [facility] 11-26-2021 13:50-0400 Systolic blood pressure 127 mm[Hg] Mulugeta Salmon MD Work Phone: [facility] 11-26-2021 13:30-0400 Body temperature 97 [degF] Mulugeta Salmon MD Work Phone: [facility] 11-12-2021 15:29-0400 Body height 167.6 cm [facility] 11-12-2021 15:29-0400 Body weight 148.96 kg [facility] 11-07-2021 09:23-0400 Body weight 148.78 kg Danny Cristina DO Work Phone: [facility] 10-27-2021 17:25-0400 Body height 165.1 cm Myron Jacome Other [employer] Other 10-27-2021 17:25-0400 Body mass index (BMI) [Ratio] 55.74 kg/m2 Myron Jacome Other [employer] Other 10-27-2021 17:25-0400 Body temperature 97.8 [degF] Myron Jacome Other [employer] Other 10-27-2021 17:25-0400 Body weight 151.96 kg Myron Jacome Other [employer] Other 10-27-2021 17:25-0400 SaO2% (BldA) [Mass fraction] 97 % Myron Jacome Other [employer] Other 09-15-2021 14:13-0400 Body height 167.2 cm Jona Bermudez MD Work Phone: [facility] 09-15-2021 14:13-0400 Body weight 152.86 kg Jona Bermudez MD Work Phone: [facility] 09-15-2021 14:13-0400 Diastolic blood pressure 86 mm[Hg] Jona Bermudez MD Work Phone: [facility] 09-15-2021 14:13-0400 Heart rate 92 /min Jona Bermudez MD Work Phone: [facility] 09-15-2021 14:13-0400 Systolic blood pressure 140 mm[Hg] Jona Bermudez MD Work Phone: [facility] Encounters Encounter Date Encounter Type Care Provider Facility Start: 08-24-2023 End: 08-24-2023 ambulatory EAGLE FRANCESCA Not Available Start: 06-22-2023 End: 06-22-2023 ambulatory EAGLE FRANCESCA Not Available Start: 05-05-2023 End: 05-05-[address] Work Phone: General Surgery Comment on above: S/P gastric bypass ( Primary Dx); Impaired intestinal absorption; Dietary counseling and surveillance Start: 05-05-2023 End: 05-05-2023 Telemedicine consultation with patient Bita Yaritza RD Work Phone: [facility] Start: 04-13-2023 End: 04-13-2023 ambulatory KHOI M MAHENDRARosalio Facility:[facility] Start: 04-13-2023 End: 04-13-2023 ambulatory Jona Bermudez MD Work Phone: General Surgery Comment on above: S/P gastric bypass ( Primary Dx) Start: 04-13-2023 End: 04-13-2023 Telemedicine consultation with patient Jona Bermudez MD Work Phone: [facility] Start: 12-30-2022 End: 12-30-[address] Work Phone: General Surgery Comment on above: S/P gastric bypass ( Primary Dx); Dietary counseling and surveillance Start: 12-30-2022 End: 12-30-2022 Telemedicine consultation with patient Bita Yaritza RD Work Phone: [facility] Start: 09-09-2022 End: 09-09-2022 ambulatory BITA YARITZA Facility:[facility] Start: 06-09-2022 End: 06-09-2022 ambulatory BITA YARITZA Facility:[facility] Start: 06-09-2022 End: 06-09-[address] Work Phone: General Surgery Comment on above: S/P gastric bypass ( Primary Dx); Impaired intestinal absorption; Dietary counseling and surveillance Start: 06-09-2022 End: 06-09-2022 Telemedicine consultation with patient Bita Vigil RD Work Phone: [facility] Start: 05-15-2022 End: 05-18-2022 ambulatory JONA BERMUDEZ Facility:[facility] Start: 05-07-2022 End: 05-07-2022 ambulatory Jona Bermudez MD Work Phone: General Surgery Comment on above: History of Cathie-en-Y gastric bypass (Primary Dx) Start: 05-07-2022 End: 05-07-2022 Telemedicine consultation with patient Jona Bermudez MD Work Phone: [facility] Start: 04-08-2022 End: 04-08-2022 ambulatory Fellow Scott Main Work Phone: General Surgery Comment on above: Status post gastric bypass for obesity (Primary Dx); Obesity, Class III, BMI 40-49.9 (morbid obesity) (HCC) Start: 04-08-2022 End: 04-08-2022 Telemedicine consultation with patient Fellow Scott Main Work Phone: [facility] Start: 03-18-2022 End: 03-18-2022 [facility] to [facility] Work Phone: [facility] Start: 03-18-2022 End: 03-18-2022 ambulatory [...] department patient visit [facility] [id number] Other Phone (unformatted): [phone] Start: 01-07-2022 End: 01-07-2022 ambulatory DANUTA MACARIO Facility:[facility] Start: 01-05-2022 End: 01-05-2022 Departed Referred PHYSICIAN [facility] Start: 12-24-2021 Admission to [facility] Jona Bermudez MD Work Phone: General Surgery Comment on above: 02/01/2022 (Pseudo parish rgery date) Start: 12-24-2021 ambulatory Jona Bermudez MD Work Phone: [facility] Start: 12-23-2021 ambulatory Danny Morton n DO Work Phone: General Surgery Comment on above: Question regarding C OMP METABOLIC PANEL Start: 12-23-2021 Telephone encounter Danny Cristina DO Work Phone: General Surgery Comment on above: Results Start: 12-03-2021 End: 12-03-2021 Patient encounter procedure Nurse Card [facility] Work Phone: Cardiology Comment on above: Class 3 severe obesi ty with body mass index (BMI) of 50.0 to 59.9 in adult, unspecified obesity type, unspecified whether serious comorbidity present (HCC) Start: 12-01-2021 End: 12-01-[address] General Surgery Comment on above: Patient Education; R eassessment Start: 11-28-2021 End: 11-28-2021 Subsequent hospital visit by physician [facility] Work Phone: [facility] Radiology Ultrasound Comment on above: Class 3 severe obesi ty with body mass index (BMI) of 50.0 to 59.9 in adult, unspecified obesity type, unspecified whether serious comorbidity present (HCC) [E66.01, Z68.43] Start: 11-28-2021 End: 11-28-2021 Subsequent hospital visit by physician Jorje [facility] Work Phone: [facility] Radiology General Comment on above: Class 3 [...] Start: 11-12-2021 End: 11-12-2021 Admission to establishment [facility] Start: 11-12-2021 End: 11-12-2021 Preprocedural examination done [facility] Pre Anesthesia Start: 11-12-2021 End: 11-12-2021 ambulatory Maria T Lares APRN.CNP Work Phone: Pre Anesthesia Comment on above: Pre-op Instructions Preoperative examina tion (Primary Dx); Morbidly obese (HCC); Fatty liver; Anxiety and depression Start: 11-12-2021 E-mail encounter fro m caregiver Maria T Lares APRN.CNP Work Phone: [facility] Start: 11-07-2021 End: 11-07-2021 ambulatory Danny Cristina DO Work Phone: General Surgery Comment on above: Class 3 severe obesi ty with body mass index (BMI) of 50.0 to 59.9 in adult, unspecified obesity type, unspecified whether serious comorbidity present (HCC) (Primary Dx); PCOS (polycystic ovarian syndrome) Start: 11-07-2021 End: 11-07-2021 Telemedicine consultation with patient Danny Cristina DO Work Phone: [facility] Start: 10-27-2021 End: 10-27-2021 ambulatory Myron Jacome Other [facility] [email or web address] Other Start: 10-27-2021 Office outpatient vi sit 15 minutes Myron Jacome [facility] Start: 10-01-[address] ELMIRA SNOW [...] Start: 10-23-2021 Adult depression screening assessment Danny Guevaraagnes GOMEZ Work Phone: H/O: section History of delivery Jona Bermudez MD Work Phone: H/O: section History of delivery Jona Bermudez MD Work Phone: Plan of Treatment Date Care Activity Detail Author Start: 04-16-2028 Urine microalbumin profile DTaP,Tdap,Td Vaccine (3 - Td or Tdap) [facility] Start: 02-05-2023 Covid-19 Vaccine () Covid-19 Vaccine () [facility] Start: 02-05-2023 [facility] Start: 10-23-2022 Adult depression screening assessment DEPRESSION SCREENING [facility] Start: 02-05-2022 [facility] Start: 11-07-2021 End: 01-07-2022 CBC W Auto Differential panel - Blood CBC + DIFF Lab Routine Class 3 severe obesity with body mass index (BMI) of 50.0 to 59.9 in adult, unspecified obesity type, unspecified whether serious comorbidity present (HCC) Expected: 11/07/2021, Expires: 01/07/2022 [facility] Work Phone: Comment on above: Expected: 11/07/2021 , Expires: 01/07/2022 Start: 11-07-2021 End: 01-07-2022 Comprehensive metabolic 2000 panel - Serum or Plasma COMP METABOLIC PANEL Lab Routine Class 3 severe obesity with body mass index (BMI) of 50.0 to 59.9 in adult, unspecified obesity type, unspecified whether serious comorbidity present (HCC) Expected: 11/07/2021, Expires: 01/07/2022 [facility] Work Phone: Comment on above: Expected: 11/07/2021 , Expires: 01/07/2022 Start: 11-07-2021 End: 01-07-2022 FERRITIN BLD FERRITIN BLD Lab Routine Class 3 severe obesity with body mass index (BMI) of 50.0 to 59.9 in adult, unspecified obesity type, unspecified whether serious comorbidity present (HCC) Expected: 11/07/2021, Expires: 01/07/2022 [facility] Work Phone: Comment on above: Expected: 11/07/2021 , Expires: 01/07/2022 Start: 11-07-2021 End: 01-07-2022 Folate [Mass/volume] in Serum or Plasma FOLATE SERUM Lab Routine Class 3 severe obesity with body mass index (BMI) of 50.0 to 59.9 in adult, unspecified obesity type, unspecified whether serious comorbidity present (HCC) Expected: 11/07/2021, Expires: 01/07/2022 [facility] Work Phone: Comment on above: Expected: 11/07/2021 , Expires: 01/07/2022 Start: 11-07-2021 End: 01-07-2022 Hemoglobin A1c/Hemoglobin.total in Blood HGB A1C Lab Routine PCOS (polycystic ovarian syndrome) Expected: 11/07/2021, Expires: 01/07/2022 [facility] Work Phone: Comment on above: Expected: 11/07/2021 , Expires: 01/07/2022 Start: 11-07-2021 End: 01-07-2022 IRON + TIBC IRON + TIBC Lab Routine Class 3 severe obesity with body mass index (BMI) of 50.0 to 59.9 in adult, unspecified obesity type, unspecified whether serious comorbidity present (HCC) Expected: 11/07/2021, Expires: 01/07/2022 [facility] Work Phone: Comment on above: Expected: 11/07/2021 , Expires: 01/07/2022 Start: 11-07-2021 End: 01-07-2022 LIPID PANEL BASIC LIPID PANEL BASIC Lab Routine Class 3 severe obesity with body mass index (BMI) of 50.0 to 59.9 in adult, unspecified obesity type, unspecified whether serious comorbidity present (HCC) Expected: 11/07/2021, Expires: 01/07/2022 [facility] Work Phone: Comment on above: Expected: 11/07/2021 , Expires: 01/07/2022 Start: 11-07-2021 End: 01-07-2022 PTH INTACT BLD PTH INTACT BLD Lab Routine Class 3 severe obesity with body mass index (BMI) of 50.0 to 59.9 in adult, unspecified obesity type, unspecified whether serious comorbidity present (HCC) Expected: 11/07/2021, Expires: 01/07/2022 [facility] Work Phone: Comment on above: Expected: 11/07/2021 , Expires: 01/07/2022 Start: 11-07-2021 End: 01-07-2022 Thyrotropin [Units/volume] in Serum or Plasma TSH BLD Lab Routine Class 3 severe obesity with body mass index (BMI) of 50.0 to 59.9 in adult, unspecified obesity type, unspecified whether serious comorbidity present (HCC) Expected: 11/07/2021, Expires: 01/07/2022 [facility] Work Phone: Comment on above: Expected: 11/07/2021 , Expires: 01/07/2022 Start: 11-07-2021 End: 01-07-2022 VITAMIN B1 (THIAMINE), WHOLE BLOOD VITAMIN B1 (THIAMINE), WHOLE BLOOD Lab Routine Class 3 severe obesity with body mass index (BMI) of 50.0 to 59.9 in adult, unspecified obesity type, unspecified whether serious comorbidity present (HCC) Expected: 11/07/2021, Expires: 01/07/2022 [facility] Work Phone: Comment on above: Expected: 11/07/2021 , Expires: 01/07/2022 Start: 11-07-2021 End: 01-07-2022 VITAMIN B12 BLOOD VITAMIN B12 BLOOD Lab Routine Class 3 severe obesity with body mass index (BMI) of 50.0 to 59.9 in adult, unspecified obesity type, unspecified whether serious comorbidity present (HCC) Expected: 11/07/2021, Expires: 01/07/2022 [facility] Work Phone: Comment on above: Expected: 11/07/2021 , Expires: 01/07/2022 Start: 11-07-2021 End: 01-07-2022 VITAMIN D 25 HYDROXY VITAMIN D 25 HYDROXY Lab Routine Class 3 severe obesity with body mass index (BMI) of 50.0 to 59.9 in adult, unspecified obesity type, unspecified whether serious comorbidity present (HCC) Expected: 11/07/2021, Expires: 01/07/2022 [facility] Work Phone: Comment on above: Expected: 11/07/2021 , Expires: 01/07/2022 Start: 09-29-2021 End: 09-15-2022 EGD BARIATRIC EGD BARIATRIC Endoscopy Routine Morbid obesity due to excess calories (HCC) Expected: 09/29/2021, Expires: 09/15/2022 [facility] Work Phone: Comment on above: Expected: 09/29/2021 , Expires: 09/15/2022 Start: 05-21-2021 COVID-19 VACCINE (5 - Booster) COVID-19 VACCINE (5 - Booster) [facility] Start: 05-21-2021 COVID-19 VACCINE (5 - Pfizer series) COVID-19 VACCINE (5 - Pfizer series) [facility] Start: 2019 HPV TESTING HPV TESTING [facility] Start: 2010 PAP TESTING PAP TESTING [facility] Start: 2008 Urine microalbumin profile DTAP,TDAP,TD (1 - Tdap) [facility] Start: 2007 HEPATITIS C SCREENING HEPATITIS C SC REENING [facility] Start: 2007 HIV SCREENING HIV SCREENING [facility] Start: 2001 Adult depression screening assessment DEPRESSION SCREENING [facility] Start: 1989 HEPATITIS B (1 of 3 - 3-dose series) HEPATITIS B (1 of 3 - 3-dose series) [facility] Start: 1989 Hepatitis B Vaccine (1 of 3 - 3-dose series) Hepatitis B Vaccine (1 of 3 - 3-dose series) [facility] End: 11-07-2022 ECG COMPLETE ECG COMPLETE ECG Routine Class 3 severe obesity with body mass index (BMI) of 50.0 to 59.9 in adult, unspecified obesity type, unspecified whether serious comorbidity present (HCC) 1 Occurrences starting 11/07/2021 until 11/07/2022 [facility] Work Phone: Comment on above: 1 Occurrences starti ng 11/07/2021 until 11/07/2022 End: 09-16-2022 EGD DIAGNOSTIC EGD DIAGNOSTIC Endoscopy Routine Pre-op exam 1 Occurrences starting 09/16/2021 until 09/16/2022 [facility] Work Phone: Comment on above: 1 Occurrences starti ng 09/16/2021 until 09/16/2022 End: 12-07-2022 Radiologic exam chest 2 views XR CHEST 2V FRONTAL/LAT Radiology Routine Class 3 severe obesity with body mass index (BMI) of 50.0 to 59.9 in adult, unspecified obesity type, unspecified whether serious comorbidity present (HCC) 1 Occurrences starting 11/07/2021 until 12/07/2022 [facility] Work Phone: Comment on above: 1 Occurrences starti ng 11/07/2021 until 12/07/2022 End: 12-07-2022 Us abdominal real time w/image limited US ABD RT UPPER QUADRANT Radiology Routine Class 3 severe obesity with body mass index (BMI) of 50.0 to 59.9 in adult, unspecified obesity type, unspecified whether serious comorbidity present (HCC) 1 Occurrences starting 11/07/2021 until 12/07/2022 [facility] Work Phone: Comment on above: 1 Occurrences starti ng 11/07/2021 until 12/07/2022 [facility] Immunizations Immunization Date Immunization Notes Care Provider Fa cili 03-11-2022 influenza virus vacc ine, unspecified formulation Jona Bermudez MD Work Phone: [facility] Payers Date Payer Category Payer Unknown MMO MMO [employer] [id number] 2021-Present [phone] [address] [place] [address] PPO [id number] 2021 Unknown 1989 Unknown [id number] 1989 Unknown [id number] 1989 Unknown [id number] 1989 Unknown [id number] 1989 Unknown [id number] 1989 Unknown [id number] 1989 Unknown [id number] 1989 Unknown [id number] 1959 Self-pay 1960 Unknown [id number] Social History Date Type Detail Facility Start: 09-15-2021 End: 03-18-2022 Tobacco smoking status NHIS Never smoked tobacco [facility] Start: 09-15-2021 End: 03-18-2022 Tobacco use and exposure Smokeless tobacco non-user [facility] Start: 1990 Sex Assigned At Not on file [facility] Start: 09-05-2021 End: 03-26-2022 Exposure to SARS-CoV-2 (event) Not sure [facility] Start: 11-12-2021 Alcohol intake Current drinke r of alcohol (finding) [facility] Start: 11-12-2021 History SDOH Alcohol Comment Not weekly [facility] Start: 03-18-2022 End: 12-30-2022 Sex Assigned At [facility] Start: 1990 Sex Assigned At Female F [facility] Tobacco smoking consumption unknown [facility] Other Phone (unformatted): [phone] Start: 02-13-2022 End: 02-23-2022 Exposure to SARS-CoV-2 (event) Yes [facility] Start: 03-18-2022 End: 04-13-2023 Alcohol intake Ex-drinker (finding) [facility] Start: 03-18-2022 End: 12-30-2022 History of Social function [facility] Adult Depression Screening Assessment [address] [facility] Clinical Notes 12-20-2020 to 05-05-[address] - 05/05/2023 3:54 PM Jona Adams MD - 04/13/2023 10:20 AM ESTPatient InstructionsBita Vigil RD - 12/30/2022 1:16 PM EDTPatient Instructions Note Date & Type Note Facility 05-05-2023 Note HNO ID: [id number] Author: Bita Vigil RD Service: ? Author Type: Registered Dietitian Type: Progress Notes Filed: 05/05/2023 5:03 PM Note Text: The [facility] Nutrition Therapy: Virtual Consult - Re-assessment I have communicated my name and active licensure. The patient?s identity and physical location were verified at the time of this visit. Either the patient or their legal sales representative [employer] has been informed of the risks and [...] Capsule with 45 mg Iron AND additional 3872-7992 mg per day Calcium Citrate 5. 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 Exercise: strive for daily activity. Increase as tolerated to goal of 200 minutes/week with combination of cardio and strength training exercise. 6. Practice mindful eating habits-take small portions, eat slowly, chew thoroughly Actions to implement interventions: see assessment Diet History: Breakfast - protein shake (20 gm protein powder, [employer] milk +/- PB2) OR eggs, breakfast meat [...] Physical limitations affect (more content not included)... [facility] 05-05-[address] - 05/05/2023 [...] Capsule with 45 mg Iron AND additional 2276-1484 mg per day Calcium Citrate 5. Exercise: [...] last 30 minutes documented in this encounter [facility] 05-05-2023 History of Present illness Narrative The [facility] Nutrition Therapy: Virtual Consult - Re-assessment I have communicated my name and active licensure. The patient s identity and physical location were verified at the time of this visit. Either the patient or their legal sales representative [employer] has been informed of the risks and [...] Capsule with 45 mg Iron AND additional 7107-8791 mg per day Calcium Citrate 5. 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 Exercise: strive for daily activity. Increase as tolerated to goal of 200 minutes/week with combination of cardio and strength training exercise. 6. Practice mindful eating habits-take small portions, eat slowly, chew thoroughly Actions to implement interventions: see assessment Diet History: Breakfast - protein shake (20 gm protein powder, [employer] milk +/- PB2) OR eggs, breakfast meat [...] 3:54 PM PAGER: documented in this encounter [facility] 04-13-2023 Note HNO ID: [id number] Author: Jona Johns MD Service: ? Author Type: Physician Type: Progress Notes Filed: 04/13/2023 10:55 AM Note Text: Metabolic Surgery Postoperative Virtual Clinic Visit Name: Funmilayo Conway I have communicated my name and active licensure. The patient's identity and physical location were verified at the time of this visit. Either the patient or their legal sales representative [employer] has been informed of the risks and [...] next week Jona Cormier MD, FACS, GABI feeder tender [facility] Bariatric Fellowship Medical DirOxidized Finish Plater laparoscopic Surgery Bariatric and Metabolic Rector [facility] 04-13-2023 History of Present illness Narrative Images from the original note were not included. Metabolic Surgery Postoperative Virtual Clinic Visit Name: Funmilayo Conway I have communicated my name and active licensure. The patient's identity and physical location were verified at the time of this visit. Either the patient or their legal sales representative [employer] has been informed of the risks and [...] next week Jona Cormier MD, FACS, GABI feeder tender [facility] [facility] Medical DirOxidized Finish Plater laparoscopic Surgery Bariatric and Metabolic Rector documented in this encounter [facility] 12-30-2022 Note HNO ID: [id number] Author: Bita Vigil RD Service: ? Author [...] states doing well with no current concerns. 2098-3216 calories/day - advancing appropriately 80-100 protein intake/day - meeting needs 64+ fluid intake/day - meeting needs Taking all recommended vitamin/minerals from Bariatric Fusion 1/day MVI with 45 mg Fe, 600 mg Ca citrated BID, and biotin. No new labs. Resting Metabolic Rate: 1722 Energy needs for weight loss 9744-2279 (15-20 kcals/kg CBW) Protein needs: 85 grams [...] Multivitamin Capsule with 45 mg Iron AND 3546-8656 mg per day Calcium Citrate 5. Exercise: [...] 25 minutes - Group Bita Vigil RD [facility] 12-30-[address] - 12/30/2022 [...] Multivitamin Capsule with 45 mg Iron AND 1200-4115 mg per day Calcium Citrate 5. Exercise: strive for daily activity. Increase as tolerated to goal of 200 minutes/week with combination of cardio and strength training exercise. 6. Practice mindful eating habits-take small portions, eat slowly, chew thoroughly documented in this encounter [facility] 12-30-2022 History of Present illness Narrative This [...] states doing well with no current concerns. 8379-8007 calories/day - advancing appropriately 80-100 protein intake/day - meeting needs 64+ fluid intake/day - meeting needs Taking all recommended vitamin/minerals from Bariatric Fusion 1/day MVI with 45 mg Fe, 600 mg Ca citrated BID, and biotin. No new labs. Resting Metabolic Rate: 1722 Energy needs for weight loss 3656-3711 (15-20 kcals/kg CBW) Protein needs: 85 grams [...] Multivitamin Capsule with 45 mg Iron AND 2859-0285 mg per day Calcium Citrate 5. Exercise: [...] Bita Vigil RD documented in this encounter [facility] 09-09-2022 Note HNO ID: [id number] Author: Bita Vigil RD Service: ? Author [...] Rate: 1889 Energy needs for weight loss 4204-5084 (10-15 kcals/kg CBW) Protein needs: 85 grams [...] 32 minutes - Group Bita Vigil RD [facility] 06-09-2022 Note HNO ID: [id number] Author: Bita Vigil RD Service: ? Author Type: Registered Dietitian Type: Progress Notes Filed: 06/09/2022 10:17 AM Note Text: [facility] Nutrition Therapy: Virtual Consult - Re-assessment This [...] mg Iron and Calcium Citrate (total of 9062-1228 mg/day) * take calcium citrate separately from [...] Rate: 1992 Energy needs for weight loss 0777-7503 (10-15 kcals/kg CBW) Protein needs: 85 grams [...] in the AM, 2 in the PM) www.bariatricfusion.[employer] - [employer] Health: 1 Bariatric Multivitamin and Calcium Citrate (total of 8820-8916 mg/day) * take calcium citrate separately from Multivitamin with iron at least 2 hours apart and 4 hours apart from additional calcium www.[employer] - Bariatric Choice: 4 Complete Multivitamins (chewables) per day Www.bariatricchoice.[employer] - Bariatric Advantage: 2 Multivitamins and 3 Calcium Citrate Chewables per day * take calcium citrate separately from Multivitamin with iron at least 2 hours apart and 4 hours apart from additional calcium Www.bariatricadPaymentOneage.[employer] 2. Protein goal: 85 grams protein/day 3. [...] veggie OR chili Snack - none OR vatican citizen yogurt Dinner - same as lunch Snack [...] 1-3 days/week) Anthropometrics: (more content not included)... [facility] 06-09-[address] - 06/09/2022 [...] mg Iron and Calcium Citrate (total of 5001-6610 mg/day) * take calcium citrate separately from [...] assessment (294 lbs) documented in this encounter [facility] 06-09-2022 History of Present illness Narrative The [facility] Nutrition Therapy: Virtual Consult - Re-assessment This [...] mg Iron and Calcium Citrate (total of 2991-9095 mg/day) * take calcium citrate separately from [...] Rate: 1992 Energy needs for weight loss 1632-7031 (10-15 kcals/kg CBW) Protein needs: 85 grams [...] in the AM, 2 in the PM) www.bariatricfusion.[employer] - [employer] Health: 1 Bariatric Multivitamin and Calcium Citrate (total of 7619-3839 mg/day) * take calcium citrate separately from Multivitamin with iron at least 2 hours apart and 4 hours apart from additional calcium www.[employer] - Bariatric Choice: 4 Complete Multivitamins (chewables) per day Www.bariatricchoCampus Cellect.[employer] - Bariatric Advantage: 2 Multivitamins and 3 Calcium Citrate Chewables per day * take calcium citrate separately from Multivitamin with iron at least 2 hours apart and 4 hours apart from additional calcium Www.bariatricadPaymentOneage.[employer] 2. Protein goal: 85 grams protein/day 3. [...] veggie OR chili Snack - none OR vatican citizen yogurt Dinner - same as lunch Snack [...] 9:25 AM PAGER: documented in this encounter [facility] 05-17-2022 Note HNO ID: [id number] Author: Louise Tobin, PhD Service: ? Author Type: Psychologist Type: Progress Notes Filed: 05/18/2022 8:58 AM Note Text: [facility] DEPARTMENT OF PSYCHIATRY AND PSYCHOLOGY/[facility] Bariatric Behavioral Services Progress Note May 17, 2022 Billing codes: FAYE Tobin CPT Code: 12636 Brief Emotional/Behavioral Assessment with scoring/documentation [id number] Virtual GROUP PSYCHOTHERAPY Time initiated session: 8:30 AM to 9:30 AM Index Surgery Date of Surgery: 03/26/22 Surgeon: Dr. Cormier. Surgical Procedure: gastric bypass Current weight: 283 pounds Psychologist: Piedad Pt was seen in a virtual group. Participants were given the opportunity to discuss their experience since surgery and ask questions of other group members. The group scallop raker addressed questions and concerns related to psychological [...] hoped. She was able to navigate a [employer] republican well - I felt normal. Patient mood [...] Tobin, PhD, RD, LD, CDCES ACS-CEP, Psychologist [facility] 05-07-2022 History of Present illness Narrative Metabolic Surgery Postoperative Virtual Clinic Visit Name: Funmilayo Conway This visit was performed virtually via [employer] technology due to the COVID-19 epidemic as an effort to protect patients and minimize exposure.? Virtual Visit (Audio/Visual) I have discussed the nature of this visit with the patient which will occur via Distance Health (Phone, Virtual Visit) and she agrees [...] & Bariatric Surgery Fellow Bariatric & Metabolic Rector [facility] STAFF ATTESTATION: I have reviewed the note [...] which included preparing to see the patient, [id number] patient care, completing clinical documentation, obtaining and/or [...] Jona Cormier MD documented in this encounter [facility] 04-08-2022 History of Present illness Narrative BARIATRIC SURGERY CLINIC FOLLOW UP NOTE Clinic Date: 04/08/2022 Funmilayo Conway, 31 year old [address] [facility] [address] This visit was performed virtually (phone conversation) [...] 03/18/22: 143 kg (315 lb 4.8 oz). [place] weight: 68.5 kg (150 lb 15.1 oz) [...] rashes or skin changes. PHYSICAL EXAM: PHYSICAL EXAMINATION:[facility] 03/16/2021 GENERAL: No apparent distress. Pt is [...] and Bariatric Surgery documented in this encounter [facility] 03-18-2022 History of Present illness Narrative BARIATRIC SURGERY PREOPERATIVE VISIT NOTE Name: Funmilayo Conway Medical Record: [id number] Encounter No.: [id number] Funmilayo Conway is a 31 year old [...] which included preparing to see the patient, [id number] patient care, completing clinical documentation, obtaining and/or reviewing separately obtained history, counseling and educating the patient/family/caregiver, and ordering medications, tests, or procedures. Prescriptions were explained and provided to the patient. Jona Bermudez MD Advanced Laparoscopic and Bariatric Surgery documented in this encounter [facility] 03-18-2022 Instructions Kwame Rodriguez APRN.PRODUCTION ESTIMATOR - 03/18/2022 2:08 PM EDT PATIENT PREOPERATIVE INSTRUCTIONS Jerardo Johns* has scheduled you for your procedure at this surgery center: [facility] [place] [facility] Scheduling Office: [phone] --[address] [place] [address]. Please read below carefully for your personalized [...] Procedures: - YOU MUST HAVE A RESPONSIBLE SEGMENT PRODUCER TAKE YOU HOME. 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 - We recommend that a responsible person [...] call the Wednesday before. Your surgeon s media marketing coordinator will tell you what time to call the office. - If you have not reached the departmental media marketing coordinator by 5 P.M., call [phone] after 5 P.M. the day before your surgery. Please be aware that emergency situations arise, which may delay or change your surgical time. If this happens, we will notify you as soon as possible and regret any inconvenience. If you already have an Advance Directive, please fax a copy to [phone] or email to for it to be [...] into your chart that day. Kwame Rodriguez APRN.DNP documented in this encounter [facility] 03-18-2022 History and physical note HISTORY AND [...] fevers. Neuro: No history of TIA's, stroke, JAVA SYBASE DEVELOPER tumor, impaired sensorium, hemiplegia, paraplegia or quadraplegia. No neurological symptoms or problems. Respiratory: No history of current cough or dyspnea, or pneumonia in the past 6 weeks. No history of respiratory/pulmonary symptoms or problems. Cardiovascular: No history of HTN requiring medication, no history of angina, CHF, VA, cardiac surgery or stents. Denies rest pain, [...] or incontinence,, stones or chronic kidney disease POLYSOMNOGRAPHIC TECH: Negative for abnormal vaginal bleeding, abnormal vaginal [...] TIME: 1:59 PM documented in this encounter [facility] 03-13-2022 Miscellaneous Notes BMI SPECIALTY CARE COORDINATION [...] Jagruti Escobar RN documented in this encounter [facility] 03-10-[address] - 03/10/2022 [...] fish, low fat dairy - cottage cheese, Bulgarian yogurt, light yogurt, cheese, ricotta cheese, nuts, [...] Calcium Citrate twice a day (total of 3543-0076 mg/day) * take calcium citrate separately from Multivitamin with iron at least 2 hours apart and 4 hours apart from additional calcium www.NeuMedicsarenoUCWeb.[employer] - Bariatric Choice: 4 complete multivitamins (chewable) [...] weeks post op documented in this encounter [facility] 03-10-2022 History of Present illness Narrative This [...] fish, low fat dairy - cottage cheese, Bulgarian yogurt, light yogurt, cheese, ricotta cheese, nuts, [...] - Celebrate: multiple options- look on website Www.BULXebratevitamins.[employer] - [employer] Health: 1 Multivitamin and Calcium Citrate twice a day (total of 4622-1402 mg/day) * take calcium citrate separately from Multivitamin with iron at least 2 hours apart and 4 hours apart from additional calcium www.Rec[employer]Match - Bariatric Choice: 4 complete multivitamins (chewables) per day Www.bariatricchoice.com - Bariatric Advantage: 2 Multivitamins and 3 Calcium Citrate Chewables per day * take calcium citrate separately from Multivitamin with iron at least 2 hours apart and 4 hours apart from additional calcium www.bariatricadvantage.[employer] B complex with at least 75 mg [...] fish, low fat dairy - cottage cheese, Bulgarian yogurt, light yogurt, cheese, ricotta cheese, nuts, [...] - Celebrate: multiple options- look on website Www.SkySQLrate[employer] - [employer] Health: 1 Multivitamin and Calcium Citrate twice a day (total of 5613-1177 mg/day) * take calcium citrate separately from Multivitamin with iron at least 2 hours apart and 4 hours apart from additional calcium www.[employer] - Bariatric Choice: 4 complete multivitamins (chewable) per day Www.bariatricchoice.com - Bariatric Advantage: 2 Multivitamins and 3 Calcium Citrate Chewable per day * take calcium citrate separately from Multivitamin with iron at least 2 hours apart and 4 hours apart from additional calcium www.bariatricadPaymentOneage.[employer] B complex with at least 75 mg [...] - Group Signed by: Francoise Hardwick RDN, JOES, SARAH documented in this encounter [facility] 12-23-2021 Miscellaneous Notes The following approved medication [...] Danny Cristina DO documented in this encounter [facility] 12-03-2021 Nurse Note EKG completed and reviewed; documented in this encounter [facility] 12-01-2021 History of Present illness Narrative This [...] in the AM, 2 in the PM) www.bariatricfusion.[employer] - [employer] Health: 1 Bariatric Multivitamin and Calcium Citrate (total of 0823-2612 mg/day) * take calcium citrate separately from Multivitamin with iron at least 2 hours apart and 4 hours apart from additional calcium www.[employer] - Bariatric Choice: 4 Complete Multivitamins (chewables) per day Www.bariatricchoice.[employer] - Bariatric Advantage: 2 Multivitamins and 3 Calcium Citrate Chewables per day * take calcium citrate separately from Multivitamin with iron at least 2 hours apart and 4 hours apart from additional calcium Www.bariatricadPaymentOneage.[employer] Pre-op goal weight: 319 pounds Protein needs: [...] fish, low fat dairy - cottage cheese, Bulgarian yogurt, light yogurt, cheese, ricotta cheese, nuts, [...] - Celebrate: multiple options- look on website Www.JetabroadteWor[employer] - [employer] Health: 1 Multivitamin and Calcium Citrate twice a day (total of 2529-6940 mg/day) * take calcium citrate separately from Multivitamin with iron at least 2 hours apart and 4 hours apart from additional calcium www.[employer] - Bariatric Choice: 4 complete multivitamins (chewables) per day Www.bariatricchoice.com - Bariatric Advantage: 2 Multivitamins and 3 Calcium Citrate Chewables per day * take calcium citrate separately from Multivitamin with iron at least 2 hours apart and 4 hours apart from additional calcium www.bariatricadNovatris.[employer] B complex with at least 75 mg [...] Davida Kaur MS,RD,CSOWM,LD documented in this encounter [facility] 11-28-2021 Note HNO ID: [id number] Author: Keira Salvador RDMS, RVT Service: Radiology Author Type: Plexiglas Former Type: Progress Notes Filed: 11/28/2021 1:52 PM [...] RDMS, RVT November 28, 2021 1:52 PM [facility] 11-28-2021 History of Present illness Narrative Radiology [...] 2021 1:52 PM documented in this encounter [facility] 11-28-2021 Note HNO ID: [id number] Author: RT Leann(Naresh) Service: ? Author Type: Technologist Type: Progress [...] PERIPHERAL IV DATA: Not applicable SIGNED BY: BHARAT Noriega) November 28, 2021 12:58 PM [facility] 11-28-2021 History of Present illness Narrative Radiology [...] IV DATA: Not applicable SIGNED BY: RT Leann(Naresh) November 28, 2021 12:58 PM documented in this encounter [facility] 11-26-2021 History and physical note UPDATED HISTORY [...] Pcp This is a virtual visit using NoteSick video visit. It required patient-provider interaction for [...] fevers. 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 No neurological symptoms or problems. Respiratory: No history of current cough or dyspnea, or pneumonia in the past 6 weeks. No history of respiratory/pulmonary symptoms or problems. Cardiovascular: No history of HTN requiring medication, no history of angina, CHF, VA, cardiac surgery or stents. Denies rest pain, [...] > 1 time per night or hematuria. POLYSOMNOGRAPHIC TECH: Negative for abnormal vaginal bleeding, abnormal vaginal [...] or any previous visit (from the past 12921 hour(s)). Assessment Morbidly obese (HCC) Assessment: Body [...] or younger Non-male patient STOP-Bang Score: 3 [id number] Score: Age: <65 Sex: female CHF history: No Hypertension history: No Stroke/TIA/thromboembolism history: No Vascular disease history: No Diabetes history: No [id number] Score: 1 ASA Class: 3 ANESTHESIA FINDINGS: [...] PM PAGER/CONTACT #: documented in this encounter [facility] 11-12-2021 History and physical note Images from the original note were not included. HISTORY AND PHYSICAL EXAMINATION SERVICE DATE: 11/12/2021 SERVICE TIME: 3:26 PM PRIMARY CARE PHYSICIAN: No Pcp This is a virtual visit using NoteSick video visit. It required patient-provider interaction for [...] fevers. 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 No neurological symptoms or problems. Respiratory: No history of current cough or dyspnea, or pneumonia in the past 6 weeks. No history of respiratory/pulmonary symptoms or problems. Cardiovascular: No history of HTN requiring medication, no history of angina, CHF, VA, cardiac surgery or stents. Denies rest pain, [...] > 1 time per night or hematuria. POLYSOMNOGRAPHIC TECH: Negative for abnormal vaginal bleeding, abnormal vaginal [...] or any previous visit (from the past 52998 hour(s)). Assessment Morbidly obese (HCC) Assessment: Body [...] or younger Non-male patient STOP-Bang Score: 3 [id number] Score: Age: <65 Sex: female CHF history: No Hypertension history: No Stroke/TIA/thromboembolism history: No Vascular disease history: No Diabetes history: No [id number] Score: 1 ASA Class: 3 ANESTHESIA FINDINGS: [...] PM PAGER/CONTACT #: documented in this encounter [facility] 11-12-2021 Instructions Maria T Lares APRN.CNP - 11/12/2021 3:40 PM EDT PATIENT PREOPERATIVE INSTRUCTIONS Mulugeta Salmon MD has scheduled you for your procedure at this surgery center: [facility]: [phone] --[address] [place] [address]. Please enter through the entrance closest to [...] Procedures: - YOU MUST HAVE A RESPONSIBLE SEGMENT PRODUCER TAKE YOU HOME. 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 - We recommend that a responsible person [...] Advance Directive, please fax a copy to [phone] or email to for it to be [...] T Lares APRN.CNP documented in this encounter [facility] 11-07-2021 Instructions Danny Cristina DO - 11/07/2021 9:39 AM EDT Lovely Conway , Thank you for completing your visit today and we welcome you to the surgical program. We are sure that you will still have some additional questions and encourage you to reach out to your care provider via Secure Software OR your Patient Navigator. Patient Navigators are [...] free to ask for a hard copy. [email or web address] en Once you complete all of the requirements (testing, consultations, diet, etc) from each provider, please call [phone] and select option #5 to initiate insurance approval. Please note scheduling information It is important to keep track of your scheduled appointments to ensure successful completion of our surgical program. Any missed appointments can further delay your pre-surgical work-up. [facility] does offer an opt-in option for getting text message appointment reminders. Please follow the link below if you would like to opt into this service. [email or web address] As part of your surgical work up, [...] these tests. You may call your local [facility] to get an appointment. - Lab work- No appointment is needed for this, you may complete at any [facility] Laboratory. These are usually fasting labs, please be sure to fast (only water permitted) for 10-12 hours prior to the test. -Sleep Study- Please call [phone] or [phone] to get this appointment set up. -Sleep Medicine Consult- (Only needed if sleep study confirms sleep apnea) Please call [phone] or [phone] to schedule an appointment. -Upper GI/ EGD- Please call [phone] to schedule. -Provider follow up visit- Please call [phone] OR [phone] to schedule. Any testing that is completed outside of [facility] will need faxed to [phone]. We look forward to working with you on this journey, Danny Cristina DO documented in this encounter [facility] 11-07-2021 History of Present illness Narrative DISTANCE [...] healthy diet. Since the visit with the physician underwriter, eating less starch, not skipping meals, and eating more vegetables. Characterization of diet:Structured. History of eating disorders: negative Previous Obesity Treatments: commercial diets and dietitian. Exercise: Regular exercise: walking 3 times a week Barriers to regular exercise? 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 Snoring : [...] PCOS Vitamin D deficiency No history of VA, COPD, asthma, peptic ulcer disease, dyslipidemia, hypothyroidism, [...] or weight on file to calculate BMI. Impression Funmilayo Conway is a 31 year old [...] tests, or procedures. Medical Decision Making Danny CristinaDO documented in this encounter [facility] 10-27-2021 Evaluation note Encounter Date Diagnosis Assessment [...] Patient care instructions given in writting by [facility] Care At Home document. [employer] Other [id number] History of Present illness Narrative* Jagruti Escobar RN - 09/16/2021 9:47 AM EDT Opened in error. [facility] History of Present illness Narrative* Jona Bermudez MD - 09/15/2021 3:18 PM EDT Images from the original note were not included. [facility] DEPARTMENT OF SURGERY Jona Cormier M.D. [address] [facility], [place] [id number] NAME: Funmilayo Conway CLINIC NO: [id number] DATE OF SERVICE: September 15, 2021 This [...] which included preparing to see the patient, [id number] patient care, completing clinical documentation, obtaining and/or reviewing separately obtained history, performing a medically appropriate examination, counseling and educating the pat ient/family/caregiver and ordering medications, tests, or procedures. Jona Bermudez MD Advanced Laparoscopic and Bariatric Surgery [facility] NoteChief Complaint consultation for GI complaints HPI [...] Vaccine Date Status Com (more content not included)...[facility]:Result Comment: Electronically Signed By: EDY JOYCE, Elmira Infante\.br\Date and Time Signed: 08/04/21 17:32 [id number] NoteAdmission Information Admitting Physician - Neela LIM [...] voiding. Patient is eager to be discharged tobry[facility] hospit[facility]. --Other chronic medical conditions as outlined in note. Refer to d/c plan below: -Case reviewed and discussed with Dr. Graham who is in agreement with current d/c plan. Case will be reviewed and discussed with PCP or gambling monitor MD once the hospital garment sewing machine operator is able to reach him/her. I spent [...] made to ensure accuracy, however, inadvertently computerized cord maker mistakes may be present. Significant Findings CT [...] and spleen are not included within the [id number] of this renal stone protocol study. The [...] Ferreira DO 12/20/20 07:33: (more content not included)...[facility] HospitalComment on above:Result Comment: Electronically Signed By: Prerna CAVANAUGH\.br\Date and Time Signed: 12/20/20 10:28 EDT\.br\Electronically Co-Signed By: Jarred GRAHAM MD\.br\Date and Time Co-Signed: 01/13/21 08:22 [id number] NoteMicrobiology PROCEDURE: Blood Culture Charcoal [R1] SOURCE: Blood BODY SITE: Arm L COLLECTED DATE/TIME: 12/19/2020 17:25 EDT RECEIVED DATE/TIME: 12/19/2020 17:39 EDT START DATE/TIME: 12/19/2020 17:39 EDT FREE TEXT SOURCE: IV start Jhon DO, Shiva S. Jhon DO, Shiva S. FINAL REPORTS Final Report [] Verified Date/Time: 12/26/2020 18:00 EDT No growth at 7 days. Performing Locations R1: This [facility] performed at: [facility], [address] [place] [address], [id number] [place] [address], [id number] Williams StreetComment on above:Performed By: #### [id number] #### [facility] [address] [place] [address] [id number] NoteMicrobiology PROCEDURE: Blood Culture Charcoal [R1] SOURCE: Blood BODY SITE: Arm R COLLECTED DATE/TIME: 12/19/2020 17:30 EDT RECEIVED DATE/TIME: 12/19/2020 17:39 EDT START DATE/TIME: 12/19/2020 17:39 EDT FREE TEXT SOURCE: Shiva Ferreira DO S. Jhon DO, Shiva S. FINAL REPORTS Final Report [] Verified Date/Time: 12/26/2020 18:00 EDT No growth at 7 days. Performing Locations R1: This test was performed at: [facility], [address] [place] [address], [id number] [place] [address], [address] [place], [place] [address]Comment on above:Performed By: #### [id number] ####[facility] [id number] [place], [place] [id number] Marsha Flores entered room at this time [...] needs. Anticipated discharge home 12/20. CRM remains available.[facility] HospitalComment on above:Result Comment: Electronically Signed By: Janusz SOLIS, Sandra Houston\Date and Time Signed: 12/20/20 08:26 [id number] Note Chief Complaint From home, patient complains [...] MCH: 29.6 pg (12/19/20:30:00) MCHC: 33.5 gm/dL (12/19/20:30:00) RDW: 12.7 % (12/19/20:30:00) Platelet: 188 E9/L (12/19/20:30:00) MPV: 8.3 fL (12/19/20:30:00) Neutro Auto: 61.5 % (12/19/20:30:00) Lymph Auto: 29.4 % (12/19/20:30:00) [place] Auto: 7.8 % (12/19/20:30:00) Eos Auto: 0.6 % (12/19/20:30:00) Basophil Auto: 0.7 % (12/19/20:30:00) Neutro Absolute: 5.1 E9/L (12/19/20:30:00) Lymph Absolute: 2.5 E9/L (12/19/20:30:00) [place] Absolute: 0.7 E9/L (12/19/20 17:30:00) Eos Absolute: 0.1 E9/L (12/19/20:30:00) Basophil Absolute: 0.1 E9/L (12/19/20:30:00) Glucose Lvl: 90 mg/dL (12/19/20:30:00) BUN: 6 mg/dL (12/19/20:30:00) Creatinine: 0.5 mg/dL (12/19/20:30:00) eGFR: >60 (12/19/20:30:00) eGFR AA: >60 (12/19/20:30:00) BUN/Creat Ratio: 12 (12/19/20:30:00) Sodium Lvl: 138 mmol/L (12/19/20:30:00) Potassium Lvl: 3.8 mmol/L (12/19/20:30:00) Chloride: 103 mmol/L (12/19/20:30:00) CO2: 25 mmol/L (12/19/20::) AGAP: 14 mEq/L (12/19/20:30:00) Calcium Lvl: 8.9 mg/dL (12/19/20:30:00) Alk Phos: 44 Int._Unit/L (12/19/20:30:00) ALT: 22 Int._Unit/L (12/19/20:30:00) AST: 18 Int._Unit/L (12/19/20:30:00) Total Protein: 8.2 gm/dL High (12/19/20:30:00) Albumin Lvl: 4.2 gm/dL (12/19/20:30:00) Globulin: 4 gm/dL (12/19/20:30:00) A/G Ratio: 1 Low (12/19/20:30:00) Bili Total: 0.8 mg/dL (12/19/20:30:00) Lactic Acid Lvl: 0.8 mmol/L (12/19/20 20:47:00) Troponin: 2.3 pg/mL Low (12/19/20:30:00) UA Spec Desc: Clean Catch (12/19/20 19:06:00) [...] See #1 3. L (more content not included)...[facility] HospitalComment on above: Result Comment: Electronically Signed By: Neela LIM DO\Date and Time Signed: 12/20/20 05:29 EDTEvaluation note* Diagnosis Morbid obesity due to excess calories (HCC)- Primary History of delivery Other postprocedural status [facility] Diagnosis Pre-op exam- Primary Preoperative examination, unspecified documented [facility] Diagnosis Morbid obesity (HCC)- Primary Morbid obesity [facility]* Diagnosis Class 3 severe obesity with body mass index (BMI) of 50.0 to 59.9 in adult, unspecified obesity type, unspecified whether serious comorbidity present (HCC)- Primary PCOS (polycystic ovarian syndrome) Polycystic ovaries [facility]* Diagnosis Preoperative examination- Primary Preoperative examination, unspecified Morbidly obese (HCC) Morbid obesity Fatty liver Other chronic nonalcoholic liver disease Anxiety and depression Dysthymic disorder documented in this encounter [facility] note* Diagnosis Pre-op exam Preoperative examination, unspecified documented in this encounter [facility] note* Diagnosis Class 3 severe obesity with body mass index (BMI) of 50.0 to 59.9 in adult, unspecified obesity type, unspecified whether serious comorbidity present (HCC) documented in this encounter [facility] note* Diagnosis Class 3 severe obesity with body mass index (BMI) of 50.0 to 59.9 in adult, unspecified obesity type, unspecified whether serious comorbidity present (HCC)- Primary Dietary counseling and surveillance Dietary surveillance and counseling PCOS (polycystic ovarian syndrome) Polycystic ovaries documented in this encounter [facility] note* Diagnosis Class 3 severe obesity with body mass index (BMI) of 50.0 to 59.9 in adult, unspecified obesity type, unspecified whether serious comorbidity present (HCC) [facility]* Diagnosis Morbid obesity (HCC)- Primary Morbid obesity documented in this encounter [facility] noteNo assessment information [facility]Prov[facility] Work Phone: Evaluation note* Diagnosis BMI 50.0-59.9, adult (HCC)- Primary Body Mass Index 50.0-59.9, adult Dietary counseling Dietary surveillance and counseling Morbid obesity (HCC) Morbid obesity documented in this encounter [facility] note* Diagnosis Anxiety and depression Dysthymic disorder Morbid obesity (HCC) Morbid obesity documented in this encounter [facility] note* Diagnosis BMI 50.0-59.9, adult (HCC)- Primary Body Mass Index 50.0-59.9, adult PCOS (polycystic ovarian syndrome) Polycystic ovaries History of delivery Other postprocedural status Fatty liver Other chronic nonalcoholic liver disease Morbid obesity (HCC) Morbid obesity documented in this encounter [facility] note* Diagnosis Status post gastric bypass for obesity- Primary Bariatric surgery status Obesity, Class III, BMI 40-49.9 (morbid obesity) (HCC) Morbid obesity documented in this encounter [facility] note* Diagnosis History of Cathie-en-Y gastric bypass- Primary Bariatric surgery status documented in this encounter [facility] note* Diagnosis S/P gastric bypass- Primary Bariatric surgery status Impaired intestinal absorption Unspecified intestinal malabsorption Dietary counseling and surveillance Dietary surveillance and counseling documented in this encounter [facility] note* Diagnosis S/P gastric bypass- Primary Bariatric surgery status Dietary counseling and surveillance Dietary surveillance and counseling documented in this encounter [facility] note* Diagnosis S/P gastric bypass- Primary Bariatric surgery status documented in this encounter [facility] note* Diagnosis S/P gastric bypass- Primary Bariatric surgery status Impaired intestinal absorption Unspecified intestinal malabsorption Dietary counseling and surveillance Dietary surveillance and counseling documented in this encounter [facility] general Narrative - Reported* Type Description Date Medical History PCOS Medical History chronic depression Medical History anxiety Surgical History tonsillectomy and adenoidectomy x2 Surgical History wisdom teeth Surgical History cyst removal from left foot Surgical History nasal surgery Surgical History C section Hospitalization History see above [employer] Other [employer] for referral (narrative)* Outpatient Procedure (Routine) - Pending Review Specialty Diagnoses / Procedures Referred By Vipin kunz Referred To Contact [facility] Diagnoses Morbid obesity due to excess calories (HCC) Procedures EGD BARIATRIC ESOPHAGOGASTRODUODENOSC OPY TRANSORAL DIAGNOSTIC Jona Johns MD [address] [place] [address] [id number] [place] [address] Referral ID Status Reason Start Date Expiration Date Visits Requested Visits Authorized [id number] Pending Review Auto-Generat ed Referral 09/29/2021 09/15/2022 1 1 [facility] for referral (narrative)* Outpatient Procedure (Routine) - Authorized Specialty Diagnoses / Procedures Referred By Vipin kunz Referred To Contact [facility] Diagnoses Pre-op exam Procedures EGD DIAGNOSTIC ESOPHAGOGASTRODUODENOSC OPY TRANS[place] [address] [place] [address] [facility] [address] [place] [address] Referral ID Status Reason Start Date Expiration Date Visits Requested Visits Authorized [id number] Authorized Auto-Generat ed Referral 09/16/2021 09/16/2022 1 1 [facility] for referral (narrative)* Diagnostic Procedure Only (Routine) - Pending Review Specialty Diagnoses / Procedures Referred By Contac t Referred To Contact [facility] Diagnoses Class 3 severe obesity with body mass index (BMI) of 50.0 to 59.9 in adult, unspecified obesity type, unspecified whether serious comorbidity present (HCC) Procedures US ABD RT UPPER QUADRANT US ABDOMINAL REAL TIME W/IMAGE LIMITED Danny Cristina DO [address] [place] [address] [facility] Referral ID Status Reason Start Date Expiration Date Visits Requested Visits Authorized [id number] Pending Review Auto-Generat ed Referral 11/07/2021 12/07/2022 1 1 * Outpatient Procedure (Routine) - Pending Review Specialty Diagnoses / Procedures Referred By Contac t Referred To [facility] Diagnoses Class 3 severe obesity with body mass index (BMI) of 50.0 to 59.9 in adult, unspecified obesity type, unspecified whether serious comorbidity present (HCC) Procedures ECG COMPLETE ECG ROUTINE ECG W/LEAST 12 LDS W/I&R Danny Cristina DO [address] [place] [address] [facility] [address] [place] [address] Referral ID Status Reason Start Date Expiration Date Visits Requested Visits Authorized [id number] Pending Review Auto-Generat ed Referral 11/07/2021 11/07/2022 1 1 [facility] for referral (narrative)* Outpatient Procedure (Routine) - Closed Specialty Diagnoses / Procedures Referred By Contac t Referred To Contact [facility] Diagnoses Pre-op exam Procedures EGD DIAGNOSTIC ESOPHAGOGASTRODUODENOSC OPY TRANS[place] [address] [id number] [facility] [address] [place], [place] [id number] Referral ID Status Reason Start Date Expiration Date V isits Requested Visits Authorized [id number] Closed Auto-Generate d Referral 09/16/2021 09/16/2022 1 1 [facility] for referral (narrative)* Diagnostic Procedure Only (Routine) - Closed Specialty Diagnoses / Procedures Referred By Contac t Referred To Contact [facility] Diagnoses Class 3 severe obesity with body mass index (BMI) of 50.0 to 59.9 in adult, unspecified obesity type, unspecified whether serious comorbidity present (HCC) Procedures US ABD RT UPPER QUADRANT US ABDOMINAL REAL TIME W/IMAGE LIMITED Danny Cristina DO [address] [place] [address] [facility] Imaging Referral ID Status Reason Start Date Expiration Date V isits Requested Visits Authorized [id number] Closed Auto-Generate d Referral 11/07/2021 12/07/2022 1 1 [facility] for visit Narrative* Outpatient Procedure (Routine) - Closed Specialty Diagnoses / Procedures Referred By Contac t Referred To Contact [facility] Diagnoses Pre-op exam Procedures EGD DIAGNOSTIC ESOPHAGOGASTRODUODENOSC OPY TRANS[place] [address] [id number] [facility] [address] [place] [address] Referral ID Status Reason Start Date Expiration Date V isits Requested Visits Authorized [id number] Closed Auto-Generate d Referral 09/16/2021 09/16/2022 1 1 [facility] for visit Narrative* Diagnostic Procedure Only (Routine) - Closed Specialty Diagnoses / Procedures Referred By Contac t Referred To Contact [facility] Diagnoses Class 3 severe obesity with body mass index (BMI) of 50.0 to 59.9 in adult, unspecified obesity type, unspecified whether serious comorbidity present (HCC) Procedures US ABD RT UPPER QUADRANT US ABDOMINAL REAL TIME W/IMAGE LIMITED Danny Cristina DO [address] [place] [address] Us Imaging Referral ID Status Reason Start Date Expiration Date V isits Requested Visits Authorized [id number] Closed Auto-Generate d Referral 11/07/2021 12/07/2022 [address] 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 Advance Directive(s) 10/27/2021 6:10 PM Documents on File Type Date Recorded Patient Coach Operator Expl anation Advance Directive(s) 10/27/2021 6:10 PM Advance Directive Response Recorded Date/ Time Advance Directives No July 04, 2019 11:44am Chief Complaint and Reason for Visit Chief Complaint wellness Additional Source Comments INFORMATION SOURCE (unrecogn ized section and content) DATE CREATED AUTHOR 09/01/2021 [facility] DATE CREATED AUTHOR AUTHOR'S ORGANIZ ATION 11/13/2021 [facility] DATE CREATED AUTHOR AUTHOR'S ORGANIZ ATION 12/05/2021 [facility] DATE CREATED AUTHOR AUTHOR'S ORGANIZ ATION 01/08/2022 [facility] DATE CREATED AUTHOR AUTHOR'S ORGANIZ ATION 01/10/2022 [facility] DATE CREATED AUTHOR AUTHOR'S ORGANIZ ATION 02/13/2022 [facility] DATE CREATED AUTHOR AUTHOR'S ORGANIZ ATION 05/08/2023 [facility] DATE CREATED AUTHOR AUTHOR'S ORGANIZ ATION 08/25/2023 [facility] EPIC Source Comments (unrecognize d section and content) In the event this informatio n is protected by the Federal Confidentiality of Alcohol and Drug Abuse Patient Records regulations: The Federal rules restrict any use of the information to criminally investigate or prosecute any alcohol or drug abuse patient.[facility] the event this information is protected by the Federal Confidentiality of Alcohol and Drug Abuse Patient Records regulations: The Federal rules restrict any use of the information to criminally investigate or prosecute any alcohol or drug abuse patient.[facility] the event this information is protected by the Federal Confidentiality of Alcohol and Drug Abuse Patient Records regulations: The Federal rules restrict any use of the information to criminally investigate or prosecute any alcohol or drug abuse patient.[facility] the event this information is protected by the Federal Confidentiality of Alcohol and Drug Abuse Patient Records regulations: The Federal rules restrict any use of the information to criminally investigate or prosecute any alcohol or drug abuse patient.[facility]In the event this information is protected by the Federal Confidentiality of Alcohol and Drug Abuse Patient Records regulations: The Federal rules restrict any use of the information to criminally investigate or prosecute any alcohol or drug abuse patient.[facility] the event this information is protected by the Federal Confidentiality of Alcohol and Drug Abuse Patient Records regulations: The Federal rules restrict any use of the information to criminally investigate or prosecute any alcohol or drug abuse patient.[facility] the event this information is protected by the Federal Confidentiality of Alcohol and Drug Abuse Patient Records regulations: The Federal rules restrict any use of the information to criminally investigate or prosecute any alcohol or drug abuse patient.[facility] the event this information is protected by the Federal Confidentiality of Alcohol and Drug Abuse Patient Records regulations: The Federal rules restrict any use of the information to criminally investigate or prosecute any alcohol or drug abuse patient.[facility] the event this information is protected by the Federal Confidentiality of Alcohol and Drug Abuse Patient Records regulations: The Federal rules restrict any use of the information to criminally investigate or prosecute any alcohol or drug abuse patient.[facility] the event this information is protected by the Federal Confidentiality of Alcohol and Drug Abuse Patient Records regulations: The Federal rules restrict any use of the information to criminally investigate or prosecute any alcohol or drug abuse patient.[facility] the event this information is protected by the Federal Confidentiality of Alcohol and Drug Abuse Patient Records regulations: The Federal rules restrict any use of the information to criminally investigate or prosecute any alcohol or drug abuse patient.[facility] the event this information is protected by the Federal Confidentiality of Alcohol and Drug Abuse Patient Records regulations: The Federal rules restrict any use of the information to criminally investigate or prosecute any alcohol or drug abuse patient.[facility] Hospital[facility] the event this information is protected by the Federal Confidentiality of Alcohol and Drug Abuse Patient Records regulations: The Federal rules restrict any use of the information to criminally investigate or prosecute any alcohol or drug abuse patient.[facility] Hospital[facility] the event this information is protected by the Federal Confidentiality of Alcohol and Drug Abuse Patient Records regulations: The Federal rules restrict any use of the information to criminally investigate or prosecute any alcohol or drug abuse patient.[facility] Hospital[facility] the event this information is protected by the Federal Confidentiality of Alcohol and Drug Abuse Patient Records regulations: The Federal rules restrict any use of the information to criminally investigate or prosecute any alcohol or drug abuse patient.[facility] the event this information is protected by the Federal Confidentiality of Alcohol and Drug Abuse Patient Records regulations: The Federal rules restrict any use of the information to criminally investigate or prosecute any alcohol or drug abuse patient.[facility] the event this information is protected by the Federal Confidentiality of Alcohol and Drug Abuse Patient Records regulations: The Federal rules restrict any use of the information to criminally investigate or prosecute any alcohol or drug abuse patient.[facility] the event this information is protected by the Federal Confidentiality of Alcohol and Drug Abuse Patient Records regulations: The Federal rules restrict any use of the information to criminally investigate or prosecute any alcohol or drug abuse patient.[facility] HospitalIn the event this information is protected by the Federal Confidentiality of Alcohol and Drug Abuse Patient Records regulations: The Federal rules restrict any use of the information to criminally investigate or prosecute any alcohol or drug abuse patient.[facility] HospitalIn the event this information is protected by the Federal Confidentiality of Alcohol and Drug Abuse Patient Records regulations: The Federal rules restrict any use of the information to criminally investigate or prosecute any alcohol or drug abuse patient.[facility] HospitalIn the event this information is protected by the Federal Confidentiality of Alcohol and Drug Abuse Patient Records regulations: The Federal rules restrict any use of the information to criminally investigate or prosecute any alcohol or drug abuse patient.[facility] HospitalIn the event this information is protected by the Federal Confidentiality of Alcohol and Drug Abuse Patient Records regulations: The Federal rules restrict any use of the information to criminally investigate or prosecute any alcohol or drug abuse patient.[facility] HospitalIn the event this information is protected by the Federal Confidentiality of Alcohol and Drug Abuse Patient Records regulations: The Federal rules restrict any use of the information to criminally investigate or prosecute any alcohol or drug abuse patient.[facility] HospitalIn the event this information is protected by the Federal Confidentiality of Alcohol and Drug Abuse Patient Records regulations: The Federal rules restrict any use of the information to criminally investigate or prosecute any alcohol or drug abuse patient.[facility] Reason for Visit (unrecogniz ed section and content) Reason Comments New Patient Reason Comments Obesity Reason Comments Anesthesia Consult Reason Comments Radiology XR Reason Onset Date Comments Patient Education 12/01/2021 Reassessment 12/01/2021 Reason Comments EKG Specialty Diagnoses / Procedures Referred By Contac t Referred To Contact [facility] Diagnoses Class 3 severe obesity with body mass index (BMI) of 50.0 to 59.9 in adult, unspecified obesity type, unspecified whether serious comorbidity present (HCC) Procedures ECG COMPLETE ECG ROUTINE ECG W/LEAST 12 LDS W/I&R Danny Cristina, DO [address] [facility] [address] [place] [address] [facility] [address] [place] [address] Referral ID Status Reason Start Date Expiration Date V isits Requested Visits Authorized [id number] Closed Auto-Generate d Referral 11/07/2021 11/07/2022 1 [...] Care Teams (unrecognized sec tion and content) Church Business Administrator Relationship Specialty Start Date End Date Pcp, No PCP - General 10/27/21 Church Business Administrator Relationship Specialty Start Date End Date Pcp, No PCP - General 10/27/21 Church Business Administrator Relationship Specialty Start Date End Date Pcp, No PCP - General 10/27/21 Church Business Administrator Relationship Specialty Start Date End Date Khoi Byrd MD [address] [place] [address] PCP - General Family Practice 11/26/21 Church Business Administrator Relationship Specialty Start Date End Date Khoi Byrd MD [address] [facility] [place] [address] PCP - General Family Practice 11/26/21 Church Business Administrator Relationship Specialty Start Date End Date Khoi Byrd MD [address] [facility] [place] [address] PCP - General Family Practice 11/26/21 [employer] Business Administrator Relationship Specialty Start Date End Date Khoi Byrd MD [address] [facility] [place] [address] PCP - General Family Practice 11/26/21 [employer] Business Administrator Relationship Specialty Start Date End Date Khoi Byrd MD [address] [facility] [place] [address] PCP - General Family Practice 11/26/21 [employer] Business Administrator Relationship Specialty Start Date End Date Khoi Byrd MD [address] [facility] [place] [address] PCP - General Family Practice 11/26/21 [employer] Business Administrator Relationship Specialty Start Date End Date Khoi Byrd MD [address] [facility] [place] [address] PCP - General Family Practice 11/26/21 Team Status: Inactive Member Role Status Dates PHYSICIAN NO FAMILY Primary Care Provider Active Danis Tubbs DO [facility] Attending Provider Active Team Status: Active Member Role Status Dates PHYSICIAN NO FAMILY Primary Care Provider Active [employer] Relationship Specialty Start Date End Date Khoi Byrd MD [address] [facility] [place] [address] PCP - General Family Medicine 11/26/21 [employer] Business Administrator Relationship Specialty Start Date End Date Khoi Byrd MD [address] [facility] [place] [address] PCP - General Family Medicine 11/26/21 [employer] Business Administrator Relationship Specialty Start Date End Date Khoi Byrd MD [address] [facility] [place] [address] PCP - General Family Medicine 11/26/21 [employer] Business Administrator Relationship Specialty Start Date End Date Khoi Byrd MD [address] [facility] [place] [address] PCP - General Family Medicine 11/26/21 [employer] Business Administrator Relationship Specialty Start Date End Date Khoi Byrd MD [address] [facility] [place] [address] PCP - General Family Medicine 11/26/21 [employer] Business Administrator Relationship Specialty Start Date End Date Khoi Byrd MD [address] [place] [address] PCP - General Family Medicine 11/26/21 [employer] Business Administrator Relationship Specialty Start Date End Date Khoi Byrd MD [address] [place] [facility] [address] PCP - General Family Medicine 11/26/21 [employer] Business Administrator Relationship Specialty Start Date End Date Khoi Byrd MD [address] [place] [facility] [address] PCP - General Family Medicine 11/26/21 Goals [...] ON THE PRIMARY CLINICAL RECORDS. [facility] [employer] [facility]. provides no warranty or guarantee of the accuracy or completeness of information in this document.
[2023-09-03 16:11] LABS: DHEA, Serum 342 ng/dL (31-701)
== END 2023-08-30 16:07 | disposition home or self-care (01) ==
LOC: LAB 16:08
PROVIDERS: Visit Provider Obstetrics & Gynecology
DX: E28.2 Polycystic ovarian syndrome (principal); N92.0 Excessive and frequent menstruation with regular cycle
CPT/HCPCS: 36415; 82626

== ENCOUNTER 2023-10-14 16:08 | Outpatient (OUT) | payer OTHER, SELFPAY ==
[2023-10-16 04:47] LABS: Progesterone 3.9 ng/mL (.)
== END 2023-10-14 16:09 | disposition home or self-care (01) ==
LOC: LAB 16:09
PROVIDERS: Visit Provider Obstetrics & Gynecology
DX: E28.2 Polycystic ovarian syndrome (principal); N92.0 Excessive and frequent menstruation with regular cycle
CPT/HCPCS: 36415; 84144

== ENCOUNTER 2023-11-25 13:00 | Outpatient (OUT) | payer OTHER, SELFPAY ==
--- NOTE | 2023-11-25 13:01 | US_ITS ---
[address] [address] Patient Name: TAWANNA SANTOS MRN: [id number] date: 1990 Sex: F Assigned Patient Location: [facility] Current Patient Location: LAB Accession/Order Number: [id number] Exam Date: 11/25/2023 13:01 Report Date: 11/25/2023 16:25 At the request of: EAGLE MA Procedure: US OB transvaginal EXAMINATION: US OB transvaginal HISTORY: MISSED MENSES COMPARISON: No relevant comparison available. FINDINGS: GESTATIONAL SAC: Present and normal appearing. YOLK SAC: Present and normal appearing. POLE: Present and normal appearing. CARDIAC: Present. UTERUS: Normal size and appearance. OVARIES: Right: Normal. Left: Not seen. CERVIX: 4.6 cm in length and closed. CUL-DE-SAC: Normal. OTHER: None. AGE BY LMP: 8 weeks 6 days [place]SON BY LMP: 06/30/2024 AGE BY US CRL: 7 weeks 5 days [place]ILSON BY US CRL: 07/08/2024 US/US OB transvaginal IMPRESSION: 1. Single live intrauterine . Electronically authenticated by: NALLELY PABLO Date: 11/25/2023 16:25
== END 2023-11-25 13:01 | disposition home or self-care (01) ==
LOC: NOMS 13:00
PROVIDERS: Visit Provider Obstetrics & Gynecology
DX: Z34.91 Encounter for supervision of normal pregnancy, unspecified, first trimester (principal); Z3A.08 8 weeks gestation of pregnancy
CPT/HCPCS: 76817

== ENCOUNTER 2023-11-25 14:23 | Outpatient (OUT) | payer OTHER, SELFPAY ==
[2023-11-25 14:48] LABS: Basophils Percent Auto 0.7 % (0.2-2.0); Eosinophils Absolute Auto 0.1 10^3/uL (0.0-0.7); Eosinophils Percent Auto 0.8 % (0.9-7.0); Hematocrit 38.8 % (36.0-48.0); Hemoglobin 12.8 g/dL (12.0-16.0); Immature Granulocytes Abs Auto 0.02 10^3/uL (0.00-0.03); Immature Granulocytes Pct Auto 0.3 % (0.0-0.5); Lymphocytes Absolute Auto 1.9 10^3/uL (1.2-3.8); Mean Corpuscular Hemoglobin 29.7 pg (26.7-34.0); Monocytes Absolute Auto 0.5 10^3/uL (0.3-0.8); Monocytes Percent Auto 7.4 % (1.7-12.0); Neutrophils Absolute Auto 3.7 10^3/uL (1.4-6.5); Neutrophils Percent Auto 59.8 % (43.0-75.0); Platelet Count 181 10^3/uL (150-450); Red Blood Count 4.31 10^6/uL (4.20-5.40); Red Cell Distribution Width 12.3 % (11.0-15.0); White Blood Count 6.1 10^3/uL (4.0-11.0)
[2023-11-25 15:36] LABS: Estimated Average Glucose 97 mg/dL
[2023-11-26 06:09] LABS: HBsAg Screen Negative (Negative); HCV Ab Non Reactive (Non Reactive)
[2023-11-26 07:09] LABS: HIV Ab/p24 Ag Screen Non Reactive (Non Reactive)
[2023-11-26 11:14] LABS: Rapid Plasma Reagin, Quant Non Reactive titer (NonRea<1:1)
[2023-11-26 14:10] LABS: Rubella Antibodies, IgG 1.38 index (Immune >0.99)
== END 2023-11-25 14:24 | disposition home or self-care (01) ==
LOC: LAB 14:24
PROVIDERS: Visit Provider Obstetrics & Gynecology
DX: Z34.91 Encounter for supervision of normal pregnancy, unspecified, first trimester (principal); Z3A.08 8 weeks gestation of pregnancy
CPT/HCPCS: 36415; 76817; 83036; 85025; 86592; 86762; 86803; 86850; 86900; 86901; 87086; 87340; 87389

== ENCOUNTER 2023-11-28 22:06 | Emergency (ER) | payer OTHER, SELFPAY ==
[2023-11-28 22:14] VITALS: BP 121/71; PULSE 93; TEMP 37.2; O2SAT 100; BMI 35.8
--- OUTSIDE RECORDS SUMMARY | 2023-11-28 22:15 | XMS_ITS | CCD ---
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 Comprehensive metabolic 2000 panelon 12-01-2021 Albumin [Mass/Vol] 4.5 g/dL Normal 3.9-4.9 [facility] Comment on above: Order Comment: Speci men Type: BLOOD SPECIMEN Ordering Facility: [facility] Address: [address] [place] [address] Performed By: #### 2 4323-8, 3016-3, 74949-8, 57395-4 #### [facility] CLIA [id number] [address] [place] [address] [place] ALP [Catalytic activity/Vol] 46 U/L Normal 34-123 [facility] Comment on above: Order Comment: Speci men Type: BLOOD SPECIMEN Ordering Facility: [facility] Address: [address] [place] [address] Performed By: #### 2 4323-8, 3016-3, 91937-3, 06564-1 #### [facility] CLIA [id number] [address] [place] [address] [place] ALT [Catalytic activity/Vol] 21 U/L Normal 7-38 [facility] Comment on above: Order Comment: Speci men Type: BLOOD SPECIMEN Ordering Facility: [facility] Address: [address] [place] [address] Performed By: #### 2 4323-8, 3016-3, 49254-8, 37663-6 #### [facility] IA [id number] [address] [place] [address] [place] Anion gap [Moles/Vol] 10 mmol/L Normal 9-18 [facility] Comment on above: Order Comment: Speci men Type: BLOOD SPECIMEN Ordering Facility: [facility] Address: [address] [place], [place] [address] Performed By: #### 2 4323-8, 3016-3, 21742-5, 33298-9 #### [facility] CLIA [id number] [address] [place] [address] [place] AST [Catalytic activity/Vol] 18 U/L Normal 13-35 [facility] Comment on above: Order Comment: Speci men Type: BLOOD SPECIMEN Ordering Facility: [facility] Address: [address] [place] [phone] Performed By: #### 2 4323-8, 3016-3, 17658-6, 81539-6 #### [facility] CLIA [id number] [address] [place] [address] [place] Bilirubin [Mass/Vol] 0.3 mg/dL Normal 0.2-1.3 [facility] Comment on above: Order Comment: Speci men Type: BLOOD SPECIMEN Ordering Facility: [facility] Address: [address] [place], [place] [address] Performed By: #### 2 4323-8, 3016-3, 22569-2, 48562-6 #### [facility] CLIA [id number] [address] [place] [address] [place] Calcium [Mass/Vol] 9.2 mg/dL Normal 8.5-10.2 [facility] Comment on above: Order Comment: Speci men Type: BLOOD SPECIMEN Ordering Facility: [facility] Address: [address] [place], [place] [address] Performed By: #### 2 4323-8, 3016-3, 22688-4, 46186-4 #### [facility] CLIA [id number] [address] [place] [address] [place] Chloride [Moles/Vol] 104 mmol/L Normal 97-105 [facility] Comment on above: Order Comment: Speci men Type: BLOOD SPECIMEN Ordering Facility: [facility] Address: [address] [place], [place] [address] Performed By: #### 2 4323-8, 3016-3, 12695-8, 06151-4 #### [facility] CLIA [id number] [address] [place] [address] [place] CO2 [Moles/Vol] 23 mmol/L Normal 22-30 [facility] Comment on above: Order Comment: Speci men Type: BLOOD SPECIMEN Ordering Facility: [facility] Address: [address] [place], [place] [address] Performed By: #### 2 4323-8, 3016-3, 58289-3, 44773-3 #### [facility] CLIA [id number] [address] [place] [address] [place] Creatinine [Mass/Vol] 0.57 mg/dL Low 0.58-0.96 [facility] Comment on above: Order Comment: Rangel zamora Type: BLOOD SPECIMEN Ordering Facility: [facility] Address: [address] [address] Performed By: #### 2 4323-8, 3016-3, 65463-9, 39867-7 #### [facility] CLIA [id number] [address] [place] [address] [place] ESTIMATED GLOMERULAR FILTRATION RATE 124 mL/min/1.73m??? Normal >=60 [facility] Comment on above: Order Comment: Rangel zamora Type: BLOOD SPECIMEN Ordering Facility: [facility] Address: [address] [place] [address] Result Comment: Aleksandra mated Glomerular Filtration Rate [...] GFR. Performed By: #### 2 4323-8, 3016-3, 67091-0, 34366-9 #### [facility] CLIA [id number] [address] [place] [address] [place] Glucose [Mass/Vol] 112 mg/dL High 74-99 [facility] Comment on above: Order Comment: Rangel zamora Type: BLOOD SPECIMEN Ordering Facility: [facility] Address: [address] [place] [address] Result Comment: The [place] Diabetes Association (ADA) provides guidance for cutoff [...] Standards of Medical Care in Diabetes 2016, [place] Diabetes Association. Diabetes Care. 2016.39(Suppl 1). Performed By: #### 2 4323-8, 3016-3, 35895-3, 83108-9 #### [facility] CLIA [id number] [address] [place] [address] [place] Potassium [Moles/Vol] 4.5 mmol/L Normal 3.7-5.1 [facility] Comment on above: Order Comment: Speci men Type: BLOOD SPECIMEN Ordering Facility: [facility] Address: [address] [place] [address] Performed By: #### 2 4323-8, 6-3, 28009-1, 98530-4 #### [facility] CLIA [id number] [address] [place] [address] [place] Protein [Mass/Vol] 7.4 g/dL Normal 6.3-8.0 [facility] Comment on above: Order Comment: Speci men Type: BLOOD SPECIMEN Ordering Facility: [facility] Address: [address] [place] [address] Performed By: #### 2 4323-8, 6-3, 89176-8, 91709-2 #### [facility] CLIA [id number] [address] [place] [address] [place] Sodium [Moles/Vol] 137 mmol/L Normal 136-144 [facility] Comment on above: Order Comment: Speci men Type: BLOOD SPECIMEN Ordering Facility: [facility] Address: [address] [place], [place] [address] Performed By: #### 2 4323-8, 3016-3, 00899-9, 17692-6 #### [facility] CLIA [id number] [address] [facility] [place] [address] [place] Urea nitrogen [Mass/Vol] 12 mg/dL Normal 7-21 [facility] Comment on above: Order Comment: Speci men Type: BLOOD SPECIMEN Ordering Facility: [facility] Address: [address] [place], [place] [address] Performed By: #### 2 4323-8, 3016-3, 57926-7, 72105-7 #### [facility] CLIA [id number] [address] [facility] [place] [address] [place] Ferritin SerPl-ncon 2021 Ferritin [Mass/Vol] 177.6 ng/mL Normal 14.7-205.1 [facility] Comment on above: Order Comment: Speci men Type: BLOOD SPECIMEN Ordering Facility: [facility] Address: [address] [place] [address] Performed By: #### 2 4323-8, 3016-3, 46452-2, 83932-1 #### [facility] CLIA [id number] [address] [facility] [place] [address] [place] Folate SerPl-mCncon 12-02-19 22 Folate [Mass/Vol] 9.3 ng/mL Normal >4.7 [facility] Comment on above: Order Comment: Speci men Type: BLOOD SPECIMEN Ordering Facility: [facility] Address: [address] [place] [address] Performed By: #### 2 4323-8, 3016-3, 03290-5, 55818-2 #### [facility] CLIA [id number] [address] [facility] [place] [address] [place] HbA1c (Bld)on 12-01-2021 Average glucose Estimated from glycated hemoglobin (Bld) [Mass/Vol] 108 mg/dL Normal [facility] Comment on above: Order Comment: Speci men Type: BLOOD SPECIMEN Ordering Facility: [facility] Address: [address] [place] [address] Result Comment: eAG: (Estimated average glucose) is a calculated value from HgbA1c and is mortician supplies sales representative of the average blood glucose level in the last 2-3 month period. Performed By: #### 2 4323-8, 3016-3, 81728-4, 60929-1 #### [facility] CLIA [id number] [address] [place], [place] [address] [place] [address] [place] [facility] HbA1c (Bld) [Mass fraction] 5.4 % Normal 4.3-5.6 [facility] Comment on above: Order Comment: Rangel zamora Type: BLOOD SPECIMEN Ordering Facility: [facility] Address: [address] [place] [address] Result Comment: Amer [place] Diabetes Association guidelines indicate that patients with HgbA1c in the range 5.7-6.4% are at increased risk for development of diabetes, and intervention by lifestyle modification may be beneficial. HgbA1c greater or equal to 6.5% is considered diagnostic of diabetes. Performed By: #### 2 4323-8, 6-3, 72999-0, 96939-4 #### [facility] CLIA [id number] [address] [facility] [place], [place] [address] [place] [address] [place] Iron and Iron binding capaci [facility] 12-01-2021 Iron [Mass/Vol] 69 ug/dL Normal 41-186 [facility] Comment on above: Order Comment: Rangel zamora Type: BLOOD SPECIMEN Ordering Facility: [facility] Address: [address] [place] [address] Performed By: #### 2 4323-8, 6-3, 59350-8, 40705-9 #### [facility] CLIA [id number] [address] [facility] [place], [place] [address] [place] [address] STATES [facility] Iron binding capacity [Mass/Vol] 296 ug/dL Normal 232-386 [facility] Comment on above: Order Comment: Rangel zamora Type: BLOOD SPECIMEN Ordering Facility: [facility] Address: [address] [place] [address] Performed By: #### 2 4323-8, 3016-3, 87075-3, 89687-0 #### [facility] CLIA [id number] [address] [place] [id number] [place] [address] [place] Iron/TIBC [Molar ratio] 23.3 % Normal 15.0-57.0 [facility] Comment on above: Order Comment: Speci men Type: BLOOD SPECIMEN Ordering Facility: [facility] Address: [address] [place] [address] Performed By: #### 2 4323-8, 3016-3, 85852-9, 95900-2 #### [facility] CLIA [id number] [address] [place] [address] [facility] [place] Lipid 1996 panelon 2 Cholesterol [Mass/Vol] 229 mg/dL High <200 [facility] Comment on above: Order Comment: Speci men Type: BLOOD SPECIMEN Ordering Facility: [facility] Address: [address] [place] [address] Result Comment: <200 mg/dL, Desirable 200-239 mg/dL, Borderline high >239 mg/dL, High Performed By: #### 2 4323-8, 3016-3, 99053-2, 55147-9 #### [facility] CLIA [id number] [address] [place] [address] [place] [address] [place] Cholesterol in HDL [Mass/Vol] 39 mg/dL Low >39 [facility] Comment on above: Order Comment: Speci men Type: BLOOD SPECIMEN Ordering Facility: [facility] Address: [address] [place] [address] Result Comment: 40-5 9 mg/dL, Acceptable >59 mg/dL, High: Negative risk factor for coronary heart disease <40 mg/dL, Low: Positive risk factor for coronary heart disease Performed By: #### 2 4323-8, 3016-3, 51348-6, 44697-7 #### [facility] CLIA [id number] [address] [place], [place] [address] [place] [address] [place] Cholesterol in LDL [Mass/Vol] 155 mg/dL High <100 [facility] Comment on above: Order Comment: Speci men Type: BLOOD SPECIMEN Ordering Facility: [facility] Address: [address] [place], [place] [address] Result Comment: <100 mg/dL, Optimal 100-129 mg/dL, Near optimal/above optimal 130-159 mg/dL, Borderline high 160-189 mg/dL, High >189 mg/dL, Very high Secondary prevention optimal LDL Cholesterol levels are recommended to be < 70 mg/dL Performed By: #### 2 4323-8, 3016-3, 86745-8, 44285-7 #### [facility] CLIA [id number] [address] [facility] [place] [address] [place] Cholesterol in LDL/Cholesterol in HDL [Mass ratio] 3.97 {ratio} High <2.54 [facility] Comment on above: Order Comment: Rangel zamora Type: BLOOD SPECIMEN Ordering Facility: [facility] Address: [address] [place] [address] Result Comment: Refe rence: 1. National Cholesterol Education Program ATP III Guideline At-A-Glance Quick Desk Reference: National Heart, Lung, and Blood [place]. National Institutes of Health. 2001: NIH Publication No. 01-3305. 2. An International Atherosclerosis Society position paper: global recommendations for the management of dyslipidemia: executive summary, Atherosclerosis. 2014: 232(2):410-413. Performed By: #### 2 4323-8, 3016-3, 89865-3, 81223-7 #### [facility] CLIA [id number] [address] [facility] [place] [address] [place] Cholesterol in VLDL [Mass/Vol] 35 mg/dL High <30 [facility] Comment on above: Order Comment: Rangel zamora Type: BLOOD SPECIMEN Ordering Facility: [facility] Address: [address] [phone] Performed By: #### 2 4323-8, 3016-3, 72230-1, 60764-2 #### [facility] CLIA [id number] [address] [facility] [place] [address] [place] Cholesterol non HDL [Mass/Vol] 190 mg/dL High <130 [facility] Comment on above: Order Comment: Rangel zamora Type: BLOOD SPECIMEN Ordering Facility: [facility] Address: [address] [place], [place] [address] Result Comment: <130 mg/dL, Optimal 130-159 mg/dL, Near optimal/above optimal 160-189 mg/dL, Borderline high 190-219 mg/dL, High >219 mg/dL, Very high Secondary prevention optimal non HDL Cholesterol levels are recommended to be <100 mg/dL Performed By: #### 2 4323-8, 3016-3, 01249-6, 78678-2 #### [facility] CLIA [id number] [address] [place] [address] [place] Cholesterol.total/Cho lesterol in HDL [Mass ratio] 5.87 {ratio} High <5.10 [facility] Comment on above: Order Comment: Kevini men Type: BLOOD SPECIMEN Ordering Facility: [facility] Address: [address] [place] [address] Performed By: #### 2 4323-8, 3016-3, 52645-9, 91702-9 #### [facility] CLIA [id number] [address] [place], [place] [address] [place] [address] [place] FASTING TIME 12 hrs Normal [facility] Comment on above: Order Comment: Rangel zamora Type: BLOOD SPECIMEN Ordering Facility: [facility] Address: [address] [place] [address] Performed By: #### 2 4323-8, 3016-3, 04303-1, 87092-8 #### [facility] CLIA [id number] [address] [place] [address] [place] Triglyceride [Mass/Vol] 173 mg/dL High <150 [facility] Comment on above: Order Comment: Kevini men Type: BLOOD SPECIMEN Ordering Facility: [facility] Address: [address] [place], [place] [address] Result Comment: <150 mg/dL, Normal 150-199 mg/dL, Borderline high 200-499 mg/dL, High >499 mg/dL, Very high Performed By: #### 2 4323-8, 3016-3, 59853-8, 14171-9 #### [facility] CLIA [id number] [address] [facility] [place] [address] [place] PTH-Intact SerPl-mCncon - Parathyrin.intact [Mass/Vol] 42 pg/mL Normal 15-65 [facility] Comment on above: Order Comment: Rangel zamora Type: BLOOD SPECIMEN Ordering Facility: [facility] Address: [address] [place], [place] [phone] Performed By: #### 2 731-8 #### [facility] CLIA [id number] [address] [place] [address] [place] [place] [id number] [place] TSH SerPl-aCncon 12-01-2021 TSH Qn 3.170 m[IU]/L Normal 0.270-4.200 [facility] Comment on above: Order Comment: Rangel zamora Type: BLOOD SPECIMEN Ordering Facility: [facility] Address: [address] [place], [place] [address] Result Comment: If t he patient is , TSH reference range varies by gestational period: First Trimester (weeks 9-12): 0.180-2.990 mIU/L Second Trimester: 0.110-3.980 mIU/L Third Trimester: 0.480-4.710 mIU/L Franco Callejas et al. A Practical Approach for the Verifications and Determination of Site- and Trimester-Specific Reference Intervals for Thyroid Function tests in . Thyroid, 2019:29:3:412-420. Varun E, et al. 2017 Guidelines of the [place] Thyroid Association for the Diagnosis and Management of Thyroid Disease during and the . Thyroid, 2017:27:3:315-389. Performed By: #### 2 4323-8, 3016-3, 69172-3, 02472-6 #### [facility] CLIA [id number] [address] [place] [address] [place] VITAMIN B1 (THIAMINE), WHOLE BLOODon 12-01-2021 Thiamine (Bld) [Moles/Vol] 134.6 nmol/L Normal 84.3-213.3 [facility] Comment on above: Order Comment: Rangel zamora Type: BLOOD SPECIMEN Ordering Facility: [facility] Address: [address] [place] [phone] Result Comment: This assay measures the concentration of thiamine diphosphate (TDP), the primary active form of vitamin B1. Approximately 90 percent of vitamin B1 present in whole blood is TDP. Thiamine and thiamine monophosphate, which comprise the remaining 10 percent, are not measured. This test was developed and its performance characteristics determined by [facility]'s [facility] [place] ([facility]). It has not been cleared or approved by the FDA. [facility] is regulated under CLIA as qualified to perform high-complexity testing. This test is used for clinical purposes. It should not be regarded as investigational or for research. Performed By: #### B 1WB #### [facility] CLIA [id number] [address] [place], [place] [address] [place] [address] [place] Vit B12 [facility] 12-01-2 022 Cobalamin (Vitamin B12) [Mass/Vol] 304 pg/mL Normal 232-1,245 [facility] Comment on above: Order Comment: Speci men Type: BLOOD SPECIMEN Ordering Facility: [facility] Address: [address] [place], [place] [phone] Performed By: #### 2 4323-8, 3016-3, 68532-6, 12187-9 #### [facility] CLIA [id number] [address] [facility] [place] [address] [place] No Panel Informationon 11-28 [facility] US ABD RIGHT UPPER QUADRANTo n [...] biliary ductal dilatation. The gallbladder is unremarkable. Director Case Management: ROSA Transcribe Date/Time: Nov 28 2021 2:20P Dictated by : CJ QUINTERO MD This examination was interpreted and the report reviewed and electronically signed by: CJ QUINTERO MD on Nov 28 2021 2:21PM EST [id number] CN [facility] XR CHEST 2V FRONTAL/LATon XR CHEST 2V [...] tissues: Unremarkable. IMPRESSION: No acute radiographic abnormality. Director Case Management: Vozeeme Transcribe Date/Time: Nov 28 2021 1:32P Dictated by : KOMAL VINES MD This examination was interpreted and the report reviewed and electronically signed by: KOMAL VINES MD on Nov 28 2021 1:33PM EST [id number] CN [facility] ANES POSTPROC EVALon 022 ANES POSTPROC EVAL HNO ID: [id number] Author: Fannie Tanner MD Service: Anesthesiology Author Type: Physician Type: Anesthesia Postprocedure Evaluation Filed: 11/26/2021 3:12 PM Note Text: POST ANESTHESIA EVALUATION NOTE : 1990 Procedure Summary Date: 11/26/21 Room / Location: Procedures Anesthesia Start: 1315 Anesthesia Stop: 1328 Procedure: EGD DIAGNOSTIC Diagnosis: Pre-op exam (Heartburn) Scheduled Providers: Mulugeta Salmon MD; Fannie Tanner MD; Maria Alejandra Callejas APRN.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 Responsible Provider: Fannie Tanner MD Anesthesia Type: [...] November 26, 2021 TIME: 3:12 PM CSN: [id number] [facility] ANES PRE-OPon 11-26-2021 ANES PRE-OP HNO ID: [id number] Author: Fannie Tanner MD Service: Anesthesiology Author Type: Physician Type: Anesthesia Preprocedure Evaluation Filed: 11/26/2021 12:27 PM Note Text: ANESTHESIOLOGY DAY OF SURGERY NOTE : 1990 Procedure Information Date/Time: 11/26/21 1245 Scheduled providers: Mulugeta Salmon MD; Fannie Tanner MD; Maria Alejandra Callejas APRN.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 ENGINEER Procedure: EGD DIAGNOSTIC Location: Procedures Estimated body [...] and consent discussed: yes. Patient / Responsible Republican agrees to proceed: yes Patient / Surrogate [...] November 26, 2021 TIME: 12:27 PM CSN: [id number] Normal [facility] EGD DIAGNOSTICon 11-26-2021 [facility] Upper GI endoscopyon 022 Upper GI endoscopy [facility] Gastrointestinal Endoscopy Patient Name: Funmilayo Conway Procedure Date: 11/26/2021 1:06 PM Date of : 1990 Admit Type: Outpatient Age: 31 Room: PROCEDURE A Gender: Female Note Status: Finalized [...] by the physician, the nurse and the purchaser in the pre-procedure area in the endoscopy [...] previously scheduled. Procedure Code(s): --- Professional --- 15497, Esophagogastroduoden oscopy, flexible, transoral; diagnostic, including collection of specimen(s) by brushing or washing, when performed (separate procedure) Diagnosis Code(s): --- Professional --- K21.0, Gastro-esophageal reflux disease with esophagitis R12, Heartburn CPT copyright 2019 [employer]. All rights reserved. The codes documented in this report are preliminary and upon clerical order filler review may be revised to meet current compliance requirements. Attending Participation: I personally performed the entire procedure. Scope In: 1:21:30 PM Scope Out: 1:24:29 PM MD Mulugeta Tony MD 11/26/2021 1:27:19 PM This report has been signed electronically by Mulugeta Salmon MD Number of Addenda: 0 Note Initiated On: 11/26/2021 1:06 PM Estimated Blood Loss: Estimated blood loss: none. Normal [facility] HISTORY PHYSICALon 2 HISTORY PHYSICAL HNO ID: [id number] Author: Maria T Lares APRN.OMER Service: ? Author Type: Nurse Practitioner Type: HANDP Filed: 11/12/2021 3:58 PM Note Text: HISTORY AND PHYSICAL EXAMINATION SERVICE DATE: 11/12/2021 SERVICE TIME: 3:26 PM PRIMARY CARE PHYSICIAN: No Pcp This is a virtual visit using [employer] video visit. It required patient-provider interaction for [...] fevers. 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 No neurological symptoms or problems. Respiratory: No history of current cough or dyspnea, or pneumonia in the past 6 weeks. No history of respiratory/pulmonar y symptoms or problems. Cardiovascular: No history of HTN requiring medication, no history of angina, CHF, SC, cardiac surgery or stents. Denies rest pain, [...] > 1 time per night or hematuria. 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 Normal [facility] COVID Quick Testingon 2021 Result Negative [place] Other Quick Strepon 10-27-2021 S. pyogenes Org specific cx Ql (Throat) Negative [place] Other Quick Strep [facility] [employer] Other Consent for Procedure/Surger yon 08-05-2021 Consent for Procedure/Surgery [id number] #1.00CD:127 [facility] Ambulatory Visit Summaryon 0 08-04-2021 Ambulatory Visit Summary FUNMILAYO CONWAY :1990 Visit Date:08/04/2021 Ambulatory Visit Instructions Your Care Team Attending Physician - EDY JOYCE, Elmira Infante Primary Care Physician - Carson JOYCE, Marco A Referring Physician - Marco A Byrd MD This Is Your Medications List [...] are no longer receiving treatment for. Normal [facility] Physician Referralon 022 Physician Referral [phone] [id number] #1.00CD:127 Normal [facility] Physician Referral [phone] [id number] #1.00CD:127 [facility] Covid-19 PCR ([facility])on 06-08 SARS-CoV-2 (COVID-19) RNA JONH+probe Ql (Unsp spec) Not detected Normal NOT DETECTED [facility] Comment on above: Result Comment: This test is not yet approved or cleared by the [place] FDA. When there are no FDA-approved or cleared tests available, and other criteria are met, FDA can make tests available under an emergency access mechanism called an Emergency Use Authorization (EUA). The EUA for this test is supported by the [place] of Health and Human Service's (HHS's) declaration [...] consistent with SARS-CoV-2. Performed By: #### [facility] #### [facility] [address] [place] [address] Dr. Kerri Roberto Covid-19 PCR ([facility])on SARS-CoV-2 (COVID-19) RNA JONH+probe Ql (Unsp spec) Not detected Normal NOT DETECTED [facility] Comment on above: Result Comment: This test is not yet approved or cleared by the [place] FDA. When there are no FDA-approved or cleared tests available, and other criteria are met, FDA can make tests available under an emergency access mechanism called an Emergency Use Authorization (EUA). The EUA for this test is supported by the [place] of Health and Human Service's (HHS's) declaration [...] consistent with SARS-CoV-2. Performed By: #### [facility] #### [place] [address] Dr. Kerri Roberto Coding Summary.on 12-26-2020 Coding Summary. CD:[id number]:[id number] Gh0bWw+PGhlYWQ+PE1FV UXjN96yyOZtrC6HJ2pOW B6XYOZSMIFLDF4LZR1so AW1AZefC1XwomBk FyoedNCxJK37ETf1MYP0 mKqvAVsniL6joVQkL7k4 BnEkGN74xS91TDnrWCYa RzP9EqJvormhsDOr J5slRdGvuOFeEzu+PHRh YmxlIHdpZHRoPScxMDAl RvVgnAssCY4fHh5qIBVi LWNvbGxhcHNlOiBj j8oeOPXlYQalXT4glNut V4CeiHH7LNNav9l8Xa54 dHI+PBSbGZL0aVmzUFou x370DkTho5gdCWT3 wUOjFZnsGHD5P37tw6Q6 QNVaDOElYJQ1oWV8zI0o xYydqhmpX5VgdPUeBgN0 ZSR2hQYclG2ybBhg nprogT9zYar+D41YTG8Z BUWQBE6BAzr6O1MuByqj dHI+KS40IJJbWN37zDGp tSCqe8eqiQy4OyPc DWTdBXC3eDouTYeny5La CYOjW98qkXBaf0U9NYJw nGpojHOqRvEseRW7pI9h OQlwyzygi2boowil Digom6bshl53xP12P27t IUglTXWkBOH1KBHgKKLn kVzatu9zuV4oTt9+IDxj o6emj9zslQw3BvYt YIMzxkVnrSpvUMS4f8Zy Gv02S7UgiDcwf1FfUck1 eg17dODkh5Z2lXH0ABaj EOGlnZ7uJMtrYaK6 IQXcBhDnvO62cMYcHGuj Ug4uxYdbaKuoHV1gLGLl tvrxYGNmwH4zVFPtdJZw oQehHI9pSBCumqgu v079WsRkCJM0STGcaEXz D4LcnU4kFmShDAFqUSMa B6WfeXThJIlpN998IQiq ZjJ6MINlpbYpT7Xj DXNjoRvcBuW0h2D2Ea2G x1WruumcPEZ6RImrONT5 NdBmFrTuDoP9D5VeUwc8 JEOqfLvlJI1mZ4Fa YIAkcpzoiltikFP2GRXh DQXwuN43lRIaANmuBq0g j7E2e101QBGdCTUbgH66 Rg9rmNvkRGYxvLYJ wQ6noqffz8dfntzkQuMl TAGbSVk6SVj7CYNbwBwn KuXxDTP9NnS7NRN5nWPn gW4hhNhpubcuxE6j Oyc+J70egR5tOEK7DMO6 mituYNTolkScKR73ZY03 X1TmVzvfuBFybYQ+PGRp inWqyToqLL4tRzSq i1pbp3KyMNreZ5AqUVPc RWexAzz6QKAwXTL8rVC9 uB7yXTLlRAozb7U5oOQ5 Y7AgukEgxj9mn4jw KFQpTCzgJ15vdKPab0E7 QQYbaNJ2QHUqeKcpNdGk hV61Gig+CXGrxOtdy4Lj Fhiwx6vas9rcsNk9 IjMwJSIgdmFsaWduPSJ0 p2LsBa78U05tNSupCGTf VPZtRSYdCVTkpVpcxy1r fE7nZl0+PGNvbCB3 qXC5nY8zDNDaTjX2QItq X785VrXnxJMrKgeee2hn i3qnmMw1McQhKDCggiAp rOkmDHD1d0XgOx05 Y04iMEigHVWgTUVrULGx JPExpLawzs3mhL2jAn1+ VR9zc7xtyx31vD64sRJ+ IVFfERI3vHwhRAsd LCWjvC3hODwsZaY7HRTm IsMqbE80wILmZCujDm2f aSmbxFbnPN6yGDSzcgud w478AcVvs1jzRSMh oWOwSLblPSL5M96hl5S2 EZIgGPBnPEG5fUL7aK2c bGlnbjogbGVmdDsgdmVy nBgqJUlgTJmbW851 IHRvcDsnPlBhdGllbnQg RaHmSCa4H7YuKzt6UTAd rLlePB1vgIRbOYtxIz9p sKmatCqaGO2uYPWa npifi693QoXql8qaECTn hYEtWCtsSUV0F63qc4S1 GCYxNCMdEUZ7eDH4hX5z bGlnbjogbGVmdDsg udZgjGbkIFisRBnuI358 IHRvcDsnPkJpcnRoIERh gZC3GW08RW68pLJqy7D8 dCO5N6HsUZKwisyf zfwqsRM3TZBcGVKqkT86 Mq1cdHxfBi6iDWIgXBG2 ZXCkhMGoC7FkeB6tNfUi GHTlKMYeL5NhtUZb CHphC015QFwcSfC6FOQf cbQxH7EqWWZyuXqeUyQ0 q1Q4Oh6ST2D4QB28QG42 dDBvg0F8gBJ4C7Hk SMQddmhmpfovcJI5FRXt UPVhhT72Yv0eyLrzQq5g ZANsUTX5KIWoqOAkY0Nd hN3qMsJrJJAdFEGo D8MbpPSaZVapU703UFwf HhL5WKPvpxLtI1ApQUPn zLnvCsE7l6J1Vs4GVXq4 XG12WX52uAKsb4M1 bXI7I7EoQFIcujcgfvrg jKE6TPVaDJNyvQ18Xp0s vAyzRz7lLPOzAIO1COFz lMEzJ8EaoE4pVgIo UWEoOVObT1SduKSeAHot H711SEseUtM3QIBzznTt F5NvZBPzfBxlFbD5h4Z1 Ib7RQBAoLB70LOV0 xPG9RF57ZS79U9ZvNlvn dGFibGU+PHRhYmxlIHdp ZHRoPScxMDAlJyBzdHls FT8aPt4vRJQnQQOu fQleyKFgJbNqc9nqHAWu AWllEI9rmBugP5EgeYH9 IAPte6t5Qu83S87rO0Ke dXA+SMJckQT0lPM1 uN2mIfRpSmS5XRwoD655 FrDkuFFfKwdlr1vky4gq aRm3WoT9LNTbckRhyXkg AKK3t1KsSz33J62w IHdpZHRoPSIxNSUiIHZh uRzfiv4xrO2vEc3+PGNv mWD9tCC2xA0xKyVlQgV9 BQrcL736DeIqzKFh Dntzw4rnl7jpdEz7KkNl LWEgvsOvtHhtRZH6m7It Tl10S9LlrWrec2UtLet7 fe75fDLig7E2qDY6 L2LiRZBndvhvvAUxhGri XK3yZNYajzcnSUGamL2t HTJxK9y3IuYzAaP1KIdr D9FvjvB3XECygESm FRltFHA5C93df2M4SINv QWWxPZE1dTD2qW3goRfb bjogbGVmdDsgdmVydGlj DQueYIhsP115XGSz tJsnTZVzaT9iVKKodYPl xGzdPQ5rFQGkqbxeDgvT LrYDRcgqNhFEEWGAMN29 JC17qOUeh2T7fEG4 Y4UpGOJefkgfmlgtkBC9 UNGtLXSvjD24wZCoQZzh Zk5gg5P4y853JIPoMCUt cT82Fg3gbNjfIMSv hSSYfO9zbagxj0crjrfc DrPgPDJmWAe8QLb6INSt tAveStLaTYF6HlJ3XYK8 qNToaD3xcTdxrjlg nV4cBes+MTEvMTQvMTk4 OTwvdGQ+GPMqSLF1kHue JDuePAMqjL6kWZUnV4r2 WyGmYxL1GTahE9Qm OFYploumMt28mR1fWmEq ZwX9NLlnU8GkaaO9YCIt zYDjYFqnOOG4O67li4X7 RVMiNNBaCND8dZN7 wO1jwHmzwtxqcRXyvSkw cyJsqDbpMDvlVEorO502 IHRvcDsnPjMxIFllYXJz SO36YZ68gPFmc3Z0 iOT2Q5TrGWUummftxmnn oCS6BGVpYTQtvY96gIBo VKpeDi5qj7X6g757UDDl YSRwcC20Lh5umBet HNBhoEGXmW7hyablc6pl saojNoKuYWXxFHz3YGr9 QRTrkSkqOxDuSOA0CmR4 CFD2zQNgzL3rsYtg xogecH6oKuz+RmVtYWxl GO41VU69kROpn1H9dTU3 I7NfEQRjfozbrajyuBB0 VVDeIOWqmC27gPYg RSzoGq1zl7E2o157AIGs ALXifJ27Pb3ccGkrRCWr xHQVlV4vrzagu8icvjva YsAoRHHnBTi3RZa6 XSJgjFutRrIeLYV3BrJ4 BLU8cVSwuN8ccOwuryus eO3mStu+F1WcBHF3VHRk i618U1YxMmkdvVH+ JK25SCObKP80tHCrsLKi l5dxqAs7PgGyFGOyFNN1 iWbpHHszu6FuWTIfY91f hCGtu4A7NNZvoLad tEXqGtHmlKR8vV8uJEqn piwah7kdvvjmXtulw6bi qr38iO31N56uNWzcCPKm PSIzMCUiIHZhbGln au1guX6bIi6+PGNvbCB3 rLP2nU5mYgCkMkF7VDhx N867TvUwdJNxVeggl1qf z9tmeXk0FwYsATGq mcQggGnyPOU0d9LqBt58 T58yURywHOKtALPzMOSg JJRcmYupte1ezR2eUs1+ IR2nx3jebr81dT67 dHI+EBGuSUP3tPeiHXnv TECacV9jGRdcFeG9SRHf CsBycO47yETiLHcnDj8h qKfbeTrxQM1qIWCe pvdkx349MlPzc7axOHHa pBQySQweIND9I51eu0J5 FHBrGYLtORC7uEC9aM0b bGlnbjogbGVmdDsg wuDklIabNOndUBlsF104 PCMpmKpaZlAolZMiS8rp ltZNNE5gUnvpwBX+PHRk FSM6xDtuJJnnHGSj aU3fEYBwA7h0GiHgGsZ1 IEhfY8YztuQ5IIFfmIYa ZWLogBQNsE6nexrrc5ow cjogIzAwMDAwMDt0 CLs5ADAdgJgjTjToQTN9 JoL9WLP9nGPmbV0qmBkg uedmvN4kQml+RklOOjwv dGQ+ISNmCSE4kWoc JGqrIZZaaC2oENTdM2h9 BeGmQwY2XYprR7TecwP0 VVAvlMXgKMNjiZZQyT3y dukzq8vpltxkXeNj OYNoBZd5RDg7XTOgsGwy UjItFVW9KrC2SMC6hSIf mC6krEwwuxlwpL6cQzh+ TVJOOjwvdGQ+PHRk EYZ0lPnhIUhvERNsjR7d CZKpZ2x4JeIoZpS4IBnt T1KuihU9PQJwdROuADFu iVDPzH3pfxviv0ou tkjbHkNsHZStWMe7NWf3 RAAidAcwLhIvDSV1OsO7 KIA8jRDjrE7ppOpiaath dC7kYil+IRJ1ZFA7 XL24XV79A3RdGuhcrLKj bGU+PHRhYmxlIHdpZHRo KOrvFSDqNgQkiTvgZD8z Ri6jJCVjZXTpbDyi cHNl (more content not included)... Normal [facility] Coding Summary.on 12-24-2020 Coding Summary. CD:[id number] Gh0bWw+PGhlYWQ+PE1FV HEyJ71nhRNycV4RO2uRO U8LBREKEYVSDY3XUN6at VQ5HKjlD7TnzfXu TumzjWVdTJ19YQh8DWE7 gMfsRSmizW9zxKCqP4f6 PnOwIH06qV76QUcdIZJa AnG2YpTvrfzadDNo Q6cmJgJtePLlAif+PHRh YmxlIHdpZHRoPScxMDAl OiUlbGhsJF8mAo6wDLVk LWNvbGxhcHNlOiBj y1eqKLAzTGngCV7hdIjn V6SbvSV0OLXlf5l9Vy55 dHI+KFFxLIJ5jThwQCfc j551YiVvo4fdXGJ9 wYPgUWyoNZV3V17bx7C6 FXLlWRWfQKJ4iBJ8zB9b xUzdnlrtU6ShwKTcDwA6 RTO8rYJnbV4zvNgl yekslH4bPam+O75OBW8S MTQQMX8LVyj0Z3VqWlpw dHI+BY43EQIbWG67zAEr uKLkn3jynHl8UdXf BHFhXUX6jBwpSDwtj3Sw KYStT94luHNjs9L3CVOh pXvrnLPrZcEvaVH3eX4q ADyoissvx0avjczz Jdcjn3sofo41tR07R75e LPrtLMGgJVY2GAPwTKTm yJbbzs1xcO7gKn8+IDxj d7aju4ovfAw0CdFh XEIsfiOtjGpvPGH8a0Sl Uh65I8HnkNsux4OgKvg1 kx75bOSbb0E5wLI6CMyn IAZamI8tGNheQiE7 AKQeYhAedR84oCWiMVur Gq2uhNpxlZkvRI5pOURx agtcFKWdaD6pKEYgvRGz aZamUP4oUUOphguu o045ZgIbHZC2GZKjaLEu R0IppI2mObPsNKReKMEg Q0RnbXThKKbzK696QFpg NqT8VZTcdxAaR7Wz HFFexGduSrQ9g7V1Zv4E z3WtrzmjGIE9SWyaPUQ2 IrXwOxHyAbX6B7BmEzi5 AXOkzNueDE3pR8Yu BYDvvsdjaljwoGB0QIEh DLQthU52nWIbUSnfBt5u w4Y9b598BTZjTNUvaT24 Pe8djNatOEAhvFPO uJ2knsqgq0ovbvuwJaBg AHWlSTn3KJp1UHFznHue SnFtBKY7QaE1FGD6rDQm wZ2hzXnwpcildI1m Oyc+X46joP9iWOF2GLF9 wjdrHSFziaHyWP61BG88 P8RoEupmfTDzwDP+PGRp nlPjlMayVQ5sFoQi s5sye8RbPNuxF1EmKKTv DPvgIkh6ADHqIHJ2uLH4 dZ4iEDVtYVqdh7L4eDB3 G3JbfbMgdx4eh8wa JBFyHLekZ38msLZjl0V7 GNEvvEF2EYOwhHepDlEc oC74Mss+AKTghMrbx4Bs Qejgm6dbj9qkvKk7 IjMwJSIgdmFsaWduPSJ0 v8ZaTg96K37gQMicKPLc PLJlYOItKXAphTmflv2r zU8aRy3+PGNvbCB3 dHF5wB1aQTOtEoT2UXwq L364PgAgtPKfGdhxz2ho g5vbgYv4WcFgTLMlrwFi fBbuBSM0i5NoKl63 J64hLDppQXWmFAMxSADb YXTnrDfgrc3egS2lZk0+ KY6tw6pkiy23pH25jUV+ BFXmPSK4oPrvKMxw SUZbfE6zBBtkGoC8HKTm OxXwlX84uGYzNQopUy6n eEraiHqyRZ3xOUTggfvb v969RkLef1hlOZDx wODiJCgmYHN7V17cx3Z2 WWIvHKFhKBB0hIM7dO8i bGlnbjogbGVmdDsgdmVy nXhfHMkdNEecS785 IHRvcDsnPlBhdGllbnQg AgZtBNk3Y9InInr0AGWy dMsdSL7awABxIDtkRm9q gNxfhZyjAK7bFRSe baznr029TvJbo1qcZZOm rLEhVLbfGHZ7R44rw7H8 RJOaOLSjTWN7eNS1hG5f bGlnbjogbGVmdDsg ecVmoNcrKSggUVuzA556 IHRvcDsnPkJpcnRoIERh kIW6QM14FQ00sQLre3P8 nPT6H3CwKAFvfaby hyuyyPM9TBHyIFFbbO23 Od1rkPloSa3nDVLpAYQ6 VCBbeIHsE5TdoS8dEzFn TJDzXKNqO9RioILo CAqxL079ZPpwHqY8XZHm vgPkM2IlIEOhmNbsZyY8 e4T1Gh7RR0U7IZ34QZ83 qJZxp5J2oQT0B4Jo NBNdinkrbkeqsFP7AAUg SPXysO98Vj5srPcbOs7s STKlHIN3NTAtoNMeQ0Ev lC3hYeYoWTCgQZLk K3BkxKBbTSvpP497IRbj CuB4LXCflhMdT7UxMISh tRvfInC7f0B6Zz1RXDs1 EW78VT83kLPns9W2 eWJ6J8NbPPZisxnurrrd eKM7CFRiPWXggJ64Gw5n wOrqGb9yJOJhJJO9BTEe nYKpV4PzoH7mTgOz LMLeBJFdE5SmlWDqCDwi I179AMxlKcR1RRJqhiVz M1UvNRTioVouOxC2c8L9 Og9JVAFeYG26CNH6 jOY8PS47AN64W6WmEjuk dGFibGU+PHRhYmxlIHdp ZHRoPScxMDAlJyBzdHls JG1dJs3vHXNlAAWh hMjqvINpShTfx8gdKKMk QZxdAB4kwKizD6PnaGH3 BNQac7u2Mc14F09dG7Cu dXA+KZJgkOA7sLM6 xW7rEbDsUhN7SQrvD485 WwZmnLBiMvsgm3hfx1gc jXw4AsE5HEDaebZmmUou XWS2w2HdRg31B01m IHdpZHRoPSIxNSUiIHZh bLqvfm8maU1oGu7+PGNv cMJ5nVO4sX2rSeBcFgF1 BEetE833HhXhwNZq Kfmcs7jmi6eeoDy0IaSa NFWqfnOchJbrABA8z5Xl Ay63N4XobUvde3UfGci2 he95dJOvw0Y4cYW7 A3OxPKFzdbpohUWiuIkp IR0eWNAocaipAFKztZ4l XOUzV6s1RrLnQoE7ICgc O2HetzL0IKNnrXSw OLkdLQQ8R57nu6W1TXBz MFLeRYG0rAZ2lN0blWhe bjogbGVmdDsgdmVydGlj IMpwVRlbF548MKIn hXeeBVCutG2qXVPkwVJr qTvbXH8tLAWkpnqqTclV KuGAVitqGiSEDNLYZO13 XM57zJEuo9N8pRT3 I4XnLOFvqzxmvrudcGE6 NAIoVXWelE19bXDvYElz Kz7ia9M1c281ALJxQCVf iI86Aw3olLbuDVZv vOSIcL1rbubli6qhehhr QbYmYMThYUs5PPd9DDEv lWjtGkUvLWJ3YcD6XQM0 jPCoaM1woUreozng mI4iVqo+MTEvMTQvMTk4 OTwvdGQ+QDHxHQX8tXfp VZpyBOStsS5uAJFoQ1n3 IcIwMtE5LCmbD7Rn PRUwvagmEk75nG2wFgCx FdA6PVlhO8WpveO4DQAq yQLpHXquOOJ0O22nh5M5 SHJmKMYzVLS0oPZ4 rN2joKkfkdhmdKPpaUcl yuAbnEnwKSsgSUqvX223 IHRvcDsnPjMxIFllYXJz PQ40LT65hMVfr9O4 mAM5X5QnDVHpydussxaw uBL6WABtFKOtzQ56kAZa AOhyAc2mx7P0e097LFLb MKLoaR32Mn2fhJaq MQFbyOCEeH2epuivi3vq jnieXfAgGNNfZLj0IOq5 PQQskWrsVpPtNEV9IxG1 LUA9kAKtgZ6cxYum pqexiI8tMvj+RmVtYWxl BS97AR69nSPan6I1gHT2 W0TjTLOalsmlijjjeWP8 AEUvGPLuvZ78xSXb CPfqEq6cj6N1g257HTQi RVCdhW15Bt9dgOajIXHm gBASjI8bpaidl3gdpjuq FoRmDMKoJJy6BZy2 MCWqvZonMaLkVEV0OdN1 HGO4wGPupU7kaSoxcmta qI8ePie+DA1pgheibkO9 JK32PD19Z8YhLjrp dGFibGU+PHRhYmxlIHdp ZHRoPScxMDAlJyBzdHls ZT1zPu7wIXEvMPFbmHum oJYyCoOry0vrUMGx FQwvFK6xhIakK0GlaVV7 TSQkp2p0Hp37Q38vH6Jv dXA+QHCloNE1cRW7gN1c MlGbIeE8LQlkU625 AmTujQTgZgvki1ype6xf iMq4EzZbYPObkhBohXxg BNK6t1TwZg43C61mECel ZHRoPSIyMCUiIHZh zPfdin9dwO9tTx2+PGNv lFH7iCP1pN9yEoCdXgG2 SLnpZ713HiZshCTlHddu D47mZ2LowBZ+PHRy Gup6MPGixHbdGR6jaGFo BPlzSa3lEQG6QkVaWxYw PIzdG8ZfRQPepirreeko bMS0WBGeTMTrjD61 Bj2ejWvrZb2kUDOuVFM6 POLnmMDkF9GpkG9rNlBz LOZaBHYuM6WsuSQsBCbf W780RWbpIeU5FJUs fkCqV4BkZISveHtvMwE5 h8D3Gd4XzBjlhFVfFL0t JyOoJOh5H1IzLnz2UVXo wExtMC9xhXMiSMcj Le6apNmdjMgnVS1rZYWa zhvan067RjJcb2joZTKf mEZjDDbtBDT3K58rb4I2 XRClMTBsDTD9oNB4 tI1jrBmtmeuqlAUgcCgs xsWgzTcaWKvnUFzfY658 EQCaiKaoStDHJxc2E8Zc Cqe6GUDzyWylAP4k yKNhXXqxEl2shXbzgHrg QO7wZPNdbfkrj436WhFg p5ccLQMswYGcYQcjEMN9 W94el4T4AHTpVJRn NTO2hNS5sI0nySmzyzul bGVmdDsgdmVydGljYWwt UEmqY076NSVtsKhtKh8F Iml1R9GkUuw7ZAIu pZovAW8gwLQbRTbmOc3t kMaxcHrlNH6zNKBeglvy g021SaAxd7dpWWUjkCCj UYrxNKM2S98ha9U2 OXNkVHYwEYJ3hUS1kA5k bGlnbjogbGVmdDsgdmVy sJwuDKhrSAuxV244AHVu cDsnPlBheWVyOjwv dGQ+XX93qn03D7WqXpkp Kql4EOJuDQO6oZD8sQ5l HPCiSXqem9F5fRK7V5El qsQsaa4je3biZBHz ZTog (more content not included)... Normal [facility] C Urineon 12-20-2020 Bacteria identified Cx [...] Locations R1: [facility] [address] [place] [address], [phone] , , [facility] Comment on above: Performed By: #### 1 [id number] ####[facility] [address] [place] [address] Discharge Instructionson Discharge Instructions [id number] 1#1.00CD:127 [facility] ED Note-Physicianon 12-21-19 ED Note-Physician care transferred at change of shift. CT pending. CT returned without acute findings. Patient accepted for admission for pain control Impression: flank pain Normal [facility] Comment on above: Result Comment: Elec tronically Signed By: Yevgeniy JOYCE, Salvador\.br\Date and Time Signed: 12/19/20 23:07 EDT Inpatient Clinical Summaryon 12-20-2020 Inpatient Clinical Summary [address] [address] Clinical Summary Person Information: Name: FUNMILAYO CONWAY Age: 30 Years : 1990 Sex: Female PCP: Maki VELA PA-C Marital Status: Phone: [phone] Race: White Ethnicity: Non- or Language: Stateless Visit Id: Visit Reason: Vomiting; Back pain; Headache; VOMITTING; HEADACHE Speciality: Acuity: Enc Type: Observation Med Service: Medical Arrival: 12/19/2020 16:38:33 Discharge: Dispo Type: Admitted as IP to this Hosp Address: [address] [place] [phone] Provider Notes: Diagnosis: 1:Myalgia; 2:Headache; 3:Left flank [...] Follow up: With: Address: When: [place] [address] [place] [address] Business (1) 12/26/2020 8:30 AM Patient Education Information: Viral Illness, Adult Normal [facility] Inpatient Patient Summaryon 12-20-2020 Inpatient Patient Summary [address] [address] Patient Discharge Instructions PERSON INFORMATION Name: FUNMILAYO CONWAY Date of : 1990 Current Date: 12/20/2020 [...] hydrated with water Take tylenol prn for [facility] Physician to provide the following pending test results: Follow up: With: Address: When: [place] [address] [place] [address] Business (1) 12/26/2020 8:30 AM In the event that [...] infected with (more content not included)... Normal [facility] Procalcitoninon 12-20-2020 Procalcitonin .05 ng/mL Normal .00-.50 [facility] Comment on above: Result Comment: <0.5 ng/mL [...] to 24 hours. Performed By: #### 2 [id number] #### [facility] [address] [place] [address] XR Chest Single Viewon 12-20 XR Chest [...] M.D. Transcribed by: LILY Technologist: GLEN Bates [facility] Auto Diffon 12-19-2020 Basophils/100 WBC (Bld) 0.7 % Normal 0.0-2.0 [facility] Comment on above: Order Comment: Order Added by Discern Expert. Performed By: #### 2 [id number], 9003119, 4377026, 86958048, 2928206, 1632307 #### [facility] [address] [place] [address] Basophils/Leukocytes Auto (Bld) [Pure # fraction] 0.1 E9/L Normal 0.0-0.2 [facility] Comment on above: Order Comment: Order Added by Discern Expert. Performed By: #### 2 844452, 4759116, 9853917, 59225312, 6707847, 6143796 #### [facility] [address] [place] [address] Eosinophils/100 WBC (Bld) 0.6 % Normal 0.0-8.0 [facility] Comment on above: Order Comment: Order Added by Discern Expert. Performed By: #### 2 162239, 6682313, 0828787, 60415371, 9360626, 4412223 #### [facility] [address] [place] [address] Eosinophils/Leukocyte s Auto (Bld) [Pure # fraction] 0.1 E9/L Normal 0.0-0.5 [facility] Comment on above: Order Comment: Order Added by Discern Expert. Performed By: #### 2 344550, 4072073, 3804773, 16868607, 0089365, 7606612 #### [facility] [address] [place] [address] Lymphocytes/100 WBC (Bld) 29.4 % Normal 14.0-50.0 [facility] Comment on above: Order Comment: Order Added by Discern Expert. Performed By: #### 2 583824, 0295895, 4025626, 83663868, 9261859, 8237289 #### [facility] [address] [place] [address] Lymphocytes/Leukocyte s Auto (Bld) [Pure # fraction] 2.5 E9/L Normal 1.0-4.0 [facility] Comment on above: Order Comment: Order Added by Discern Expert. Performed By: #### 2 247464, 4589385, 7901471, 80949963, 6595653, 2565009 #### [facility] [address] [place] [address] Monocytes/100 WBC (Bld) 7.8 % Normal 4.0-14.0 [facility] Comment on above: Order Comment: Order Added by Discern Expert. Performed By: #### 2 860706, 1463895, 2928609, 64606812, 9383973, 1150414 #### [facility] [address] [place] [address] Monocytes/Leukocytes Auto (Bld) [Pure # fraction] 0.7 E9/L Normal 0.2-1.0 [facility] Comment on above: Order Comment: Order Added by Discern Expert. Performed By: #### 2 595243, 2169662, 4962079, 79197189, 3729659, 6901500 #### [facility] [address] [place] [address] Neutrophils/100 WBC (Bld) 61.5 % Normal 36.0-75.0 [facility] Comment on above: Order Comment: Order Added by Discern Expert. Performed By: #### 2 845646, 2662047, 0318151, 24155223, 5126502, 3564574 #### [facility] [address] [place] [address] Neutrophils/Leukocyte s Auto (Bld) [Pure # fraction] 5.1 E9/L Normal 2.0-7.5 [facility] Comment on above: Order Comment: Order Added by Discern Expert. Performed By: #### 2 903732, 6851547, 3832860, 75105280, 2380249, 9883856 #### [facility] [address] [place] [address] CBC w/ Auto Diffon Erythrocyte distribution width (RBC) [Ratio] 12.7 % Normal 10.9-14.2 [facility] Comment on above: Performed By: #### 2 441375, 2041181, 1530720, 41243658, 8437795, 2930005 #### [facility] [address] [place] [address] Hematocrit (Bld) [Volume fraction] 41.2 % Normal 34.0-46.0 [facility] Comment on above: Performed By: #### 2 644790, 3549420, 2199676, 85893668, 6957853, 5309690 #### [facility] [address] [place] [address] Hemoglobin (Bld) [Mass/Vol] 13.8 g/dL Normal 12.0-16.0 [facility] Comment on above: Performed By: #### 2 820084, 7358273, 3505728, 19407854, 1059591, 7072391 #### [facility] [address] [place] [address] MCH (RBC) [Entitic mass] 29.6 pg Normal 27.0-34.0 [facility] Comment on above: Performed By: #### 2 632212, 7045932, 9679433, 53138387, 5258220, 5733621 #### [facility] [address] [place] [address] MCHC (RBC) [Mass/Vol] 33.5 g/dL Normal 31.4-36.0 [facility] Comment on above: Performed By: #### 2 882933, 9703336, 9379597, 83864702, 7715517, 2880806 #### [facility] [address] [place], [place] [address] MCV (RBC) [Entitic vol] 88.3 fL Normal 80.0-100.0 [facility] Comment on above: Performed By: #### 2 180148, 3580461, 8557789, 57843297, 2576280, 6640040 #### [facility] [address] [place] [address] Platelet mean volume (Bld) [Entitic vol] 8.3 fL Normal 6.4-10.8 [facility] Comment on above: Performed By: #### 2 554006, 5422755, 7470512, 62108997, 5091253, 2026880 #### [facility] [address] [place] [address] Platelets (Bld) [#/Vol] 188.0 E9/L Normal 150.0-500.0 [facility] Comment on above: Performed By: #### 2 342579, 3426959, 1405032, 60620725, 3268905, 4161053 #### [facility] [address] [place] [address] RBC (Bld) [#/Vol] 4.7 E12/L Normal 4.3-5.9 [facility] Comment on above: Performed By: #### 2 724105, 9637977, 2066539, 52916864, 1282155, 0103223 #### [facility] [address] [place] [address] WBC corrected for nucl RBC Auto (Bld) [#/Vol] 8.4 E9/L Normal 4.0-11.0 [facility] Comment on above: Performed By: #### 2 590158, 4142447, 9153554, 75829183, 2683650, 7631398 #### [facility] [address] [place] [address] CMPon 12-19-2020 Albumin [Mass/Vol] 4.2 g/dL Normal 3.3-5.0 [facility] Comment on above: Performed By: #### 2 691266, 9369833, 7472565, 14295457, 1820818, 0213429 ####[facility] [address] [place] [address] Albumin/Globulin (S) [Mass conc ratio] 1.0 Low 1.1-2.2 [facility] Comment on above: Performed By: #### 2 249110, 7285649, 6005677, 83256809, 3298665, 6051298 ####[facility] [address] [place] [address] ALP [Catalytic activity/Vol] 44 Int._Unit/L Normal 21-98 [facility] Comment on above: Performed By: #### 2 852455, 5425398, 0547867, 58925327, 3534563, 7516543 ####[facility] [address] [place] [address] ALT No additional P-5'-P [Catalytic activity/Vol] 22 Int._Unit/L Normal 6-46 [facility] Comment on above: Performed By: #### 2 148848, 4399567, 4866652, 08705569, 8902874, 4783222 ####[facility] [address] [place] [address] AST [Catalytic activity/Vol] 18 Int._Unit/L Normal 5-43 [facility] Comment on above: Performed By: #### 2 576210, 7465675, 7727238, 19619754, 6421630, 9464438 ####[facility] [address] [place] [address] Bilirubin [Mass/Vol] 0.8 mg/dL Normal 0.0-1.1 [facility] Comment on above: Performed By: #### 2 979543, 9118412, 7347292, 11617566, 3941954, 9154310 ####[facility] [address] [place] [address] Creatinine [Mass/Vol] 0.5 mg/dL Normal 0.5-1.3 [facility] Comment on above: Performed By: #### 2 352459, 9234016, 3457685, 56949049, 9732352, 5537304 ####[facility] [address] [place] [address] Globulin (S) [Mass/Vol] 4.0 g/dL Normal 1.4-4.0 [facility] Comment on above: Performed By: #### 2 995379, 5620672, 2806878, 44076510, 9777069, 4055846 ####[facility] [address] [place] [address] Protein [Mass/Vol] 8.2 g/dL High 6.0-7.8 [facility] Comment on above: Performed By: #### 2 899776, 2839214, 4789785, 93096612, 2467781, 1144942 ####[facility] [address] [place] [address] Urea nitrogen [Mass/Vol] 6 mg/dL Normal 5-21 [facility] Comment on above: Performed By: #### 2 246997, 1695092, 5687236, 77506547, 3118769, 1555945 ####[facility] [address] [place] [address] Urea nitrogen/Creatinine [Mass ratio] 12 No Units Normal 10-20 [facility] Comment on above: Performed By: #### 2 761592, 6669665, 9193022, 63933262, 2176833, 4020302 ####[facility] [address] [place] [address] Anion gap [Moles/Vol] 14 mmol/L Normal 6-16 [facility] Comment on above: Performed By: #### 2 844605, 7485252, 5819350, 69876596, 9221234, 7577914 ####[facility] [address] [place] [address] Calcium [Mass/Vol] 8.9 mg/dL Normal 8.9-11.1 [facility] Comment on above: Performed By: #### 2 336513, 1737197, 2252077, 22407708, 5050987, 2327066 ####[facility] [address] [place] [address] Chloride [Moles/Vol] 103 mmol/L Normal 101-111 [facility] Comment on above: Performed By: #### 2 674948, 3780009, 9879723, 39775716, 4974896, 5495865 ####[facility] [address] [place] [address] CO2 [Moles/Vol] 25 mmol/L Normal 21-31 [facility] Comment on above: Performed By: #### 2 864586, 7824886, 3840896, 09720131, 5372534, 7767560 ####[facility] [address] [place] [address] Glucose [Mass/Vol] 90 mg/dL Normal 55-199 [facility] Comment on above: Result Comment: If t his glucose result represents a fasting glucose, interpretation should refer to the following reference range: 55-99 mg/dL Performed By: #### 2 028635, 4625564, 3114715, 50216111, 0446274, 5062493 ####[facility] [address] [place] [address] Potassium [Moles/Vol] 3.8 mmol/L Normal 3.5-5.3 [facility] Comment on above: Performed By: #### 2 447340, 0530986, 9317831, 09755008, 6819037, 5256400 ####[facility] [address] [place] [address] Sodium [Moles/Vol] 138 mmol/L Normal 135-145 [facility] Comment on above: Performed By: #### 2 984734, 0168723, 1912034, 79180978, 8879878, 5475347 ####[facility] [address] [place] [address] CT Abdomen/Pelvis w/o Contra ston 12-19-2020 CT [...] and spleen are not included within the czcux-lz-wjuc of this renal stone protocol study. The [...] Oral contrast amount in ml's: 0 Normal [facility] Consent for Treatmenton 12-05 Consent for Treatment [id number] #1.00CD:127 Normal [facility] ED Clinical Summaryon 2020 ED Clinical Summary [place] [id number] ED Clinical Summary Person Information Name: FUNMILAYO CONWAY [facility] Age: 30 Years : 1990 Sex: Female Language: Stateless PCP: Maki VELA PA-C Marital Status: Phone: [phone] Visit Id: Visit Reason: Vomiting; Back pain; Headache; NAUSEA AND VOMITTING SENT BY PCP Speciality: Acuity: 3 Enc Type: Emergency Med Service: Emergency Arrival: 12/19/2020 16:38:33 Discharge: LOS: 000 03:58 Checkin: 12/19/2020 16:38:33 Checkout: 12/19/2020 20:36:01 Dispo Type: Admitted as IP to this [facility] EVENTS: Event Name Event Status Request Date/Time [...] 12/19/2020 20:36:01 12/19/2020 20:36:01 12/19/2020 20:36:01 ADDRESS: [address] [place] [address] [place] [id number] PHYS DOC NOTES: MEDICAL INFORMATION: Prescriptions Given: Medications to Continue with No Changes Other Medications cephalexin (Keflex 500 mg Cap) 1 Capsules By Mouth every 6 hours for 7 Days. Refills: 0. ondansetron (ondansetron 4 mg Dis Tab) 1 Tablets By Mouth every 6 hours as needed Nausea/Vomiting. Refills: 0. PATIENT EDUCATION INFORMATION: Instructions: Follow up: DIAGNOSIS: Normal [facility] ED Note-Physicianon 12-20-19 ED Note-Physician Basic [...] (12/19/20 17:3 (more content not included)... Normal [facility] Comment on above: Result Comment: Elec tronically Signed By: Shiva Ferreira DO\.br\Date and Time Signed: 12/19/20 19:19 EDT ED Patient Education Noteon 12-19-2020 ED Patient Education Note Normal [facility] ED Patient Summaryon 021 ED Patient Summary [place] [id number] Patient Discharge Instructions Person Information Name: FUNMILAYO CONWAY Age: 30 Years Arrival Date: 12/19/2020 16:38:33 Discharge Diagnosis: Primary Care Physician: Maki VELA PA-C Provider Information Primary Provider: Shiva Ferreira DO Advanced Dye Winch Operator:None The exam and treatment you received in the Emergency Department were for an urgent problem and are not intended as complete care. It is important that you follow up with a doctor, nurse practitioner, or physician?s application assistant for ongoing care. If your symptoms [...] opioids can be used to help relieve ymlhevxl-ra-tlcymh pain and are often prescribed following a [...] be struggling with addiction, tell your health home health care social worker and ask for guidance or call [facility]?S National Helpline at 4-040-927-IPIX. j Source: [place] Department of Health and Human Services/Center for Disease Control & Prevention [facility] Medications Given: Medication Dose Route Sodium Chloride 0.9% 1000.00 m (more content not included)... Normal [facility] Lactic Acidon 12-19-2020 Lactate [Mass/Vol] 0.8 mmol/L Normal 0.5-2.2 [facility] Comment on above: Performed By: #### 2 423087 #### [facility] [address] [place] [address] Lactate [Mass/Vol] 0.9 mmol/L Normal 0.5-2.2 [facility] Comment on above: Performed By: #### 2 200799, 2760335, 3959857, 98476679, 0134909, 1549535 #### [facility] [address] [place] [address] Physician Orderon 12-19-2020 Physician Order [id number]#1.00CD:127 Normal [facility] Troponinon 12-19-2020 Troponin I.cardiac [Mass/Vol] 2.30 pg/mL Low 10.10-27.10 [facility] Comment on above: Result Comment: The 95% CI (Confidence Interval) PPV (Positive Predictive Value) for myocardial infarction in females is 38 pg/mL, in males 51 pg/mL. The results should be used in conjunction with clinical conditions of myocardial infarction. (Access High Sensitivity Troponin I Instructions For Use, [place], January 2018) Performed By: #### 2 761742, 1391714, 9499761, 86394731, 7346219, 6358575 ####[facility] [address] [place] [address] UA With Cult Reflexon 2020 Bacteria LM Ql (Urine sed) TRACE Normal Trace [facility] Comment on above: Performed By: #### 1 6177404 ####[facility] [address] [place] [address] Bilirubin Ql (U) Negative Normal Negative [facility] Comment on above: Performed By: #### 1 8159027 ####[facility] [address] [place] [address] Clarity (U) CLEAR Normal Clear [facility] Comment on above: Performed By: #### 1 7432692 ####[address] [address] Color (U) YELLOW Normal Yellow [facility] Comment on above: Performed By: #### 1 6395138 ####[address] [address] Epithelial cells.squamous LM.HPF (Urine sed) [#/Area] 3-4 Normal 0-2 [facility] Comment on above: Performed By: #### 1 4060028 ####[facility] [address] [place] [address] Glucose Test strip (U) [Mass/Vol] Negative Normal Negative [facility] Comment on above: Performed By: #### 1 2725112 ####[facility] [address] [place] [address] Hemoglobin Ql (U) Negative Normal Negative [facility] Comment on above: Performed By: #### 1 9231359 ####[facility] [address] [place] [address] Ketones (U) [Mass/Vol] 1+ Abnormal Negative [facility] Comment on above: Performed By: #### 1 5571388 ####[facility] [address] [place] [address] Yznaga.plasma/Lithiu m.RBC (Bld) [Mass ratio] 0-3 Normal 0-3 [facility] Comment on above: Performed By: #### 1 9565005 ####[facility] [address] [address] Mucus Ql (Urine sed) 1+ Normal [facility] Comment on above: Performed By: #### 1 8152453 ####[address] [address] Nitrite Ql (U) Negative Normal Negative [facility] Comment on above: Performed By: #### 1 1848019 ####[address] [address] pH (U) 6.0 [pH] Invalid Interpretation Code 5.0-9.0 [facility] Comment on above: Performed By: #### 1 1865151 ####[address] [address] Protein (U) [Mass/Vol] TRACE Abnormal Negative [facility] Comment on above: Performed By: #### 1 3175969 ####[address] [address] Specific gravity (U) [Rel density] 1.025 Invalid Interpretation Code 1.005-1.030 [facility] Comment on above: Performed By: #### 1 3253856 ####[address] [address] Type of Urine collection method Clean Catch Normal [facility] Comment on above: Performed By: #### 1 7266864 ####[address] [address] Urobilinogen Qn (U) 0.2 {Tg'U}/dL Normal 0.0-1.0 [facility] Comment on above: Performed By: #### 1 2146799 ####[address] [address] WBC Auto Ql (U) Negative Normal Negative [facility] Comment on above: Performed By: #### 1 1818606 ####[address] [address] WBC LM.HPF (Urine sed) [#/Area] 0-5 Normal 0-5 [facility] Comment on above: Performed By: #### 1 4806780 ####[facility] [address] [place] [address] eGFRon 12-19-2020 GFR/1.73 sq M.predicted among blacks MDRD (S/P/Bld) [Vol rate/Area] mL/min/{1.73_m2} Normal >=59 [facility] Comment on above: Order Comment: Order added by Discern Expert. Result Comment: eGFR is race adjusted. AA=. Performed By: #### 2 741035, 3871730, 9762214, 06262475, 8409160, 4481083 ####[facility] [address] [place] [address] GFR/1.73 sq M.predicted among non-blacks MDRD (S/P/Bld) [Vol rate/Area] mL/min/{1.73_m2} Normal >=59 [facility] Comment on above: Order Comment: Order added by Discern Expert. Result Comment: Composition Siding Worker roshan kidney disease could be indicated at eGFR's of less than 60 mL/min/1.73m2. Kidney failure is indicated at less than 15 mL/min/1.73m2. Performed By: #### 2 495024, 7321060, 9386449, 02655733, 8027182, 8205604 ####[facility] [address] [place] [address] Consent for Treatmenton 12-05 Consent for Treatment [id number] #1.00CD:127 Normal [facility] Discharge Instructionson Discharge Instructions [id number]#1.00CD:127 Normal [facility] ED Clinical Summaryon 2020 ED Clinical Summary [address] [address] ED Clinical Summary Person Information Name: FUNMILAYO CONWAY [place] Age: 30 Years : 1990 Sex: Female Language: Stateless PCP: Maki VELA PA-C Marital Status: Phone: [phone] Visit Id: Visit Reason: Back pain; Headache; [...] 12/18/2020 03:52:27 12/18/2020 03:52:27 12/18/2020 03:52:27 ADDRESS: [address] [place] [address] [address] [id number] PHYS DOC NOTES: MEDICAL INFORMATION: Prescriptions Given: New Medications [id number], [address] [place], [place] [phone], [phone] cephalexin (Keflex 500 mg Cap) 1 Capsules By Mouth every 6 hours for 7 Days. Refills: 0. Medications to Continue with No Changes Other Medications ondansetron (ondansetron 4 mg Dis Tab) 1 Tablets By Mouth every 6 hours as needed Nausea/Vomiting. Refills: 0. PATIENT EDUCATION INFORMATION: Instructions: Pyelonephritis, Adult Follow up: With: Address: When: Maki VELA [address] [place] [address] Business (1) In 3 days DIAGNOSIS: Acute pyelonephritis Normal [facility] ED Note-Nursingon 12-18-2020 ED Note-Nursing pt ambulatory to rr with steady gait w/o assistance. urine sample obtained. md at bedside for eval; awaiting further orders Normal [facility] ED Note-Physicianon 12-19-19 ED Note-Physician Basic Information Time Seen: Darien Fischer DOPrincess 12/18/2020 02:26 Chief Complaint pt to ED [...] day(s), # 28 cap(s), Refills(s) 0, Pharmacy: [facility] #[id number], 165, cm, 12/18/20 1:04:00 EDT, Height/Length Dosing, [...] VELA In [address] [place] [address]- [facility] (1) Additional Instructions: Patient Education Pyelonephritis, Adult [...] Family History (more content not included)... Normal [facility] Comment on above: Result Comment: Elec [...] you start to feel better. ? Take ajsz-frz-inbxzvn and prescription medicines only as told by [...] 05/24/2006 Document Revised: 03/28/2019 Document Reviewed: 03/28/2019 [employer] Patient Education ? 2019 [employer]. Normal [facility] ED Patient Summaryon 021 ED Patient Summary [place] [id number] Patient Discharge Instructions Person Information Name: FUNMILAYO CONWAY Age: 30 Years Arrival Date: 12/18/2020 00:55:40 Discharge Diagnosis: Acute pyelonephritis Primary Care Physician: Maki VELA PA-C Provider Information Primary Provider: Darien Fischer DO Advanced Dye Winch Operator:None The exam and treatment you received in the Emergency Department were for an urgent problem and are not intended as complete care. It is important that you follow up with a doctor, nurse practitioner, or physician?s application assistant for ongoing care. If your symptoms [...] Address: When: Maki VELA [address] [place] [address] Business (1) In 3 days In the event that this physician does not participate in your insurance network, please consult with your insurance company to find a nearby participating provider. Patient Education Materials: Pyelonephritis, Adult A MESSAGE TO ALL PATIENTS REGARDING OPIOIDS PRESCRIPTION OPIOIDS: WHAT YOU NEED TO KNOW Prescription opioids can be used to help relieve rneoylbq-cw-ckeiwd pain and are often prescribed following a [...] be struggling with addiction, tell your health home health care social worker and ask for guidance or call [facility] National Helpline at 6-073-058-SIQL. a Source: [facility] (more content not included)... Normal [facility] U BetaHcg Qualon 12-18-2020 HCG.beta subunit (U) [Moles/Vol] Negative Normal [facility] Comment on above: Performed By: #### 2 9747314 ####[facility] [address] [place] [address] UA With Cult Reflexon 2020 Bacteria LM Ql (Urine sed) 3+ /HPF Abnormal Trace [facility] Comment on above: Performed By: #### 1 0379214, 3774695 ####[facility] [address] [place] [address] Bilirubin Ql (U) Negative Normal Negative [facility] Comment on above: Performed By: #### 1 5415398, 3151194 ####[facility] [address] [place] [address] Clarity (U) SL CLOUDY Abnormal Clear [facility] Comment on above: Performed By: #### 1 5738710, 2107609 ####[facility] [address] [place] [address] Color (U) YELLOW Normal Yellow [facility] Comment on above: Performed By: #### 1 5973581, 2233352 ####[facility] [address] [place] [address] Crystals LM Ql (Urine sed) Present Normal [facility] Comment on above: Performed By: #### 1 2315828, 7142973 ####[address] [address] Epithelial cells.squamous LM.HPF (Urine sed) [#/Area] 0-2 Normal 0-2 [facility] Comment on above: Performed By: #### 1 9443274, 9349557 ####[facility] [address] [place] [address] Glucose Test strip (U) [Mass/Vol] Negative Normal Negative [facility] Comment on above: Performed By: #### 1 8722360, 2239079 ####[facility] [address] [place] [address] Hemoglobin Ql (U) Negative Normal Negative [facility] Comment on above: Performed By: #### 1 5389778, 5002919 ####[facility] [address] [place] [address] Ketones (U) [Mass/Vol] Negative Normal Negative [facility] Comment on above: Performed By: #### 1 4152691, 1099761 ####[facility] [address] [place] [address] Yznaga.plasma/Lithiu m.RBC (Bld) [Mass ratio] 0-3 Normal 0-3 [facility] Comment on above: Performed By: #### 1 5217925, 8498884 ####[facility] [address] [place] [address] Mucus Ql (Urine sed) 1+ Normal [facility] Comment on above: Performed By: #### 1 0481110, 9747452 ####[address] [address] Nitrite Ql (U) Negative Normal Negative [facility] Comment on above: Performed By: #### 1 0476983, 2567394 ####[address] [address] pH (U) 7.0 [pH] Invalid Interpretation Code 5.0-9.0 [facility] Comment on above: Performed By: #### 1 0279920, 8416481 ####[address] [address] Protein (U) [Mass/Vol] Negative Normal Negative [facility] Comment on above: Performed By: #### 1 9894770, 0268319 ####[place] 0635457 Specific gravity (U) [Rel density] 1.020 Invalid Interpretation Code 1.005-1.030 [facility] Comment on above: Performed By: #### 1 4765158, 9943515 ####[place] 0635457 Type of Urine collection method Clean Catch Normal [facility] Comment on above: Performed By: #### 1 1384415, 3495601 ####[address] [address] Urobilinogen Qn (U) 0.2 {Tg'U}/dL Normal 0.0-1.0 [facility] Comment on above: Performed By: #### 1 7774938, 2737001 ####[address] [address] WBC Auto Ql (U) Negative Normal Negative [facility] Comment on above: Performed By: #### 1 3565367, 0941380 ####[address] [address] WBC LM.HPF (Urine sed) [#/Area] 0-5 Normal 0-5 [facility] Comment on above: Performed By: #### 1 2088865, 1454932 ####[facility] [address] [place] [address] Vital Signs Date Time Vital Sign Value Performing Clinician Facility 05-05-2023 15:54-0500 Body height 165.[address] Work Phone: [facility] 04-13-2023 10:23-0500 Body height 165.1 cm Jona Bermudez MD Work Phone: [facility] 04-13-2023 10:23-0500 Body weight 94.35 kg Jona Bermudez MD Work Phone: [facility] 12-30-2022 13:46-0400 Body height 165.[address] Work Phone: [facility] 12-30-2022 13:46-0400 Body weight 96.[address] Work Phone: [facility] 06-09-2022 09:24-0500 Body height 165.[address] Work Phone: [facility] 06-09-2022 09:24-0500 Body weight 118.[address] Work Phone: [facility] 03-18-2022 13:36-0400 Body height 165.1 cm Pacc 5 Work Phone: [facility] 03-18-2022 13:36-0400 Body temperature 97.39 [degF] Pacc 5 Work Phone: [facility] 03-18-2022 13:36-0400 Body weight 143.02 kg Pacc 5 Work Phone: [facility] 03-18-2022 13:36-0400 Diastolic blood pressure 81 mm[Hg] Pacc 5 Work Phone: [facility] 03-18-2022 13:36-0400 Heart rate 88 /min Pacc 5 Work Phone: [facility] 03-18-2022 13:36-0400 SaO2% (BldA) [Mass fraction] 97 % Pacc 5 Work Phone: [facility] 03-18-2022 13:36-0400 Systolic blood pressure 133 mm[Hg] Pacc 5 Work Phone: [facility] 03-18-2022 11:10-0400 Body height 165.5 cm Jona Bermudez MD Work Phone: [facility] 03-18-2022 11:10-0400 Body weight 141.98 kg Jona Bermudez MD Work Phone: [facility] 03-18-2022 11:10-0400 Diastolic blood pressure 76 mm[Hg] Jona Bermudez MD Work Phone: [facility] 03-18-2022 11:10-0400 Heart rate 78 /min Jona Bermudez MD Work Phone: [facility] 03-18-2022 11:10-0400 Systolic blood pressure 134 mm[Hg] Jona Bermudez MD Work Phone: [facility] 02-08-2022 15:57-0400 Body height 165.1 cm Marco A Hoy Other Phone: [facility] Other Phone (unformatted): [phone] 02-08-2022 15:57-0400 Body temperature 97.88 [degF] Marco A Hoy Other Phone: [facility] Other Phone (unformatted): [phone] 02-08-2022 15:57-0400 Body weight 150 kg Marco A Hoy Other Phone: [facility] Other Phone (unformatted): [phone] 02-08-2022 15:57-0400 Diastolic blood pressure 78 mm[Hg] Marco A Hoy Other Phone: [facility] Other Phone (unformatted): [phone] 02-08-2022 15:57-0400 Heart rate 77 /min Marco A Hoy Other Phone: [facility] Other Phone (unformatted): [phone] 02-08-2022 15:57-0400 Respiratory rate 20 /min Marco A Hoy Other Phone: [facility] Other Phone (unformatted): [phone] 02-08-2022 15:57-0400 SaO2% (BldA) [Mass fraction] 97 % Marco A Hoy Other Phone: [facility] Other Phone (unformatted): [phone] 02-08-2022 15:57-0400 Systolic blood pressure 143 mm[Hg] Marco A Hoy Other Phone: [facility] Other Phone (unformatted): [phone] 12-01-2021 09:31-0400 Body height 167.6 cm [facility] 12-01-2021 09:31-0400 Body weight 149.69 kg [facility] 11-26-2021 13:50-0400 Diastolic blood pressure 84 mm[Hg] Mulugeta Salmon MD Work Phone: [facility] 11-26-2021 13:50-0400 Heart rate 76 /min Mulugeta Salmon MD Work Phone: [facility] 11-26-2021 13:50-0400 Respiratory rate 15 /min Mulugeta Salmon MD Work Phone: [facility] 11-26-2021 13:50-0400 SaO2% (BldA) [Mass fraction] 95 % Mulugeta Salmon MD Work Phone: [facility] [facility] 11-26-2021 13:50-0400 Systolic blood pressure 127 mm[Hg] Mulugeta Salmon MD Work Phone: [facility] 11-26-2021 13:30-0400 Body temperature 97 [degF] Mulugeta Salmon MD Work Phone: [facility] 11-12-2021 15:29-0400 Body height 167.6 cm [facility] 11-12-2021 15:29-0400 Body weight 148.96 kg [facility] 11-07-2021 09:23-0400 Body weight 148.78 kg Danny Cristina DO Work Phone: [facility] 10-27-2021 17:25-0400 Body height 165.1 cm Myron Jacome Other [place] Other 10-27-2021 17:25-0400 Body mass index (BMI) [Ratio] 55.74 kg/m2 Myron Jacome Other [place] Other 10-27-2021 17:25-0400 Body temperature 97.8 [degF] Myron Jacome Other [place] Other 10-27-2021 17:25-0400 Body weight 151.96 kg Myron Rodasaker Other [place] Other 10-27-2021 17:25-0400 SaO2% (BldA) [Mass fraction] 97 % Myron Jacome Other [place] Other 09-15-2021 14:13-0400 Body height 167.2 cm Jona Bermudez MD Work Phone: [facility] 09-15-2021 14:13-0400 Body weight 152.86 kg Jona Bermudez MD Work Phone: [facility] 09-15-2021 14:13-0400 Diastolic blood pressure 86 mm[Hg] Jona Bermudez MD Work Phone: [facility] 09-15-2021 14:13-0400 Heart rate 92 /min Jona Bermudez MD Work Phone: [facility] 09-15-2021 14:13-0400 Systolic blood pressure 140 mm[Hg] Jona Bermudez MD Work Phone: [facility] Encounters Encounter Date Encounter Type Care Provider Facility Start: 11-25-2023 End: 11-25-2023 ambulatory EAGLE FRANCESCA Not Available Start: 08-24-2023 End: 08-24-2023 ambulatory EAGLE FRANCESCA Not Available Start: 06-22-2023 End: 06-22-2023 ambulatory EAGLE FRANCESCA Not Available Start: 05-05-2023 End: 05-05-[address] Work Phone: General Surgery Comment on above: S/P gastric bypass ( Primary Dx); Impaired intestinal absorption; Dietary counseling and surveillance Start: 05-05-2023 End: 05-05-2023 Telemedicine consultation with patient Bita Yaritza RD Work Phone: [facility] Start: 04-13-2023 End: 04-13-2023 ambulatory MARCO A BYRD Facility:[facility] Start: 04-13-2023 End: 04-13-2023 ambulatory Jona Bermudez MD Work Phone: General Surgery Comment on above: S/P gastric bypass ( Primary Dx) Start: 04-13-2023 End: 04-13-2023 Telemedicine consultation with patient Jona Bermudez MD Work Phone: [facility] Start: 12-30-2022 End: 12-30-[address] Work Phone: General Surgery Comment on above: S/P gastric bypass ( Primary Dx); Dietary counseling and surveillance Start: 12-30-2022 End: 12-30-2022 Telemedicine consultation with patient Bita Yaritza RD Work Phone: [facility] Start: 09-09-2022 End: 09-09-2022 ambulatory BITA YARITZA Facility:[facility] Start: 06-09-2022 End: 06-09-2022 ambulatory BITA YARITZA Facility:[facility] Start: 06-09-2022 End: 06-09-[address] Work Phone: General Surgery Comment on above: S/P gastric bypass ( Primary Dx); Impaired intestinal absorption; Dietary counseling and surveillance Start: 06-09-2022 End: 06-09-2022 Telemedicine consultation with patient Bita Vigil RD Work Phone: [facility] Start: 05-15-2022 End: 05-18-2022 ambulatory JONA BERMUDEZ Facility:[facility] Start: 05-07-2022 End: 05-07-2022 ambulatory Jona Bermudez MD Work Phone: General Surgery Comment on above: History of Cathie-en-Y gastric bypass (Primary Dx) Start: 05-07-2022 End: 05-07-2022 Telemedicine consultation with patient Jona Bermudez MD Work Phone: [facility] Start: 04-08-2022 End: 04-08-2022 ambulatory Fellow Scott Main Work Phone: General Surgery Comment on above: Status post gastric bypass for obesity (Primary Dx); Obesity, Class III, BMI 40-49.9 (morbid obesity) (HCC) Start: 04-08-2022 End: 04-08-2022 Telemedicine consultation with patient Fellow Scott Main Work Phone: [facility] Start: 03-18-2022 End: 03-18-2022 Admission to [facility] 5 Work Phone: [facility] Start: 03-18-2022 End: 03-18-2022 ambulatory [...] department patient visit [facility] [id number] Other Phone (unformatted): [phone] Start: 01-07-2022 End: 01-07-2022 ambulatory DANUTA MACARIO Facility:[facility] Start: 01-05-2022 End: 01-05-2022 Departed Referred PHYSICIAN KORY [facility] Start: 12-24-2021 Admission to [facility] Jona Bermudez MD Work Phone: General Surgery Comment on above: 02/01/2022 ([place]o parish rgery date) Start: 12-24-2021 ambulatory Jona Bermudez MD Work Phone: [facility] Start: 12-23-2021 ambulatory Danny Morton n DO Work Phone: General Surgery Comment on above: Question regarding C OMP METABOLIC PANEL Start: 12-23-2021 Telephone encounter Danny Cristina DO Work Phone: General Surgery Comment on above: Results Start: 12-03-2021 End: 12-03-2021 Patient encounter procedure Nurse Card [facility] Rej Work Phone: Cardiology Comment on [...] by physician [facility] Work Phone: [facility] Radiology Ultrasound Comment on above: Class 3 severe obesi ty with body mass index (BMI) of 50.0 to 59.9 in adult, unspecified obesity type, unspecified whether serious comorbidity present (HCC) [E66.01, Z68.43] Start: 11-28-2021 End: 11-28-2021 Subsequent hospital visit by physician J[facility] Work Phone: [facility] Radiology General Comment on above: [...] Start: 11-12-2021 End: 11-12-2021 Admission to establishment [facility] Start: 11-12-2021 End: 11-12-2021 Preprocedural examination done [facility] Pre Anesthesia Start: 11-12-2021 End: 11-12-2021 ambulatory Maria T Lares APRN.NEWS SPECIALIST Work Phone: Pre Anesthesia Comment on above: Pre-op Instructions Preoperative examina tion (Primary Dx); Morbidly obese (HCC); Fatty liver; Anxiety and depression Start: 11-12-2021 E-mail encounter fro m caregiver Maria T Lares APRN.NEWS SPECIALIST Work Phone: [facility] Start: 11-07-2021 End: 11-07-2021 ambulatory Danny Cristina DO Work Phone: General Surgery Comment on above: Class 3 severe obesi ty with body mass index (BMI) of 50.0 to 59.9 in adult, unspecified obesity type, unspecified whether serious comorbidity present (HCC) (Primary Dx); PCOS (polycystic ovarian syndrome) Start: 11-07-2021 End: 11-07-2021 Telemedicine consultation with patient Danny Cristina DO Work Phone: [facility] Start: 10-27-2021 End: 10-27-2021 ambulatory Myron Jacome Other [facility] [employer] Other Start: 10-27-2021 Office outpatient vi sit 15 minutes Myron Jacome [facility] Ur[facility] Start: 10-01-[address] ELMIRA SNOW Facilit y:[facility] Start: 09-27-[address] ELMIRA SNOW Facilit y:[facility] Start: 09-19-[address] MARCO A BYRD Facility :[facility] Start: 09-16-2021 Orders Only Mulgueta painting MD Work Phone: General Surgery Comment [...] delivery Start: 07-03-2021 End: 07-03-[address] MARCO A BYRD Facility:[facility] Start: 06-10-2021 End: 06-10-[address] MARCO A BYRD Facility:[facility] Procedures Date Procedure Procedure Detail Performing Clinician Start: 11-28-2021 Us abdominal real time w/image limited Danny Santamaria Cetagnes GOMEZ Work Phone: Start: 11-28-2021 Radiologic exam chest 2 views Danny Rosalio Cristina DO Work Phone: Start: 11-26-2021 Esophagogastroduodenoscopy transoral diagnostic Mulugeta Salmon MD Work Phone: Start: 10-23-2021 Adult depression screening assessment Danny Sheila GOMEZ Work Phone: H/O: section History of delivery Jona Bermudez MD Work Phone: H/O: section History of delivery Jona Bermudez MD Work Phone: Plan of Treatment Date Care Activity Detail Author Start: 04-16-2028 Urine microalbumin profile DTaP,Tdap,Td Vaccine (3 - Td or Tdap) [facility] Start: 02-05-2023 Covid-19 Vaccine () Covid-19 Vaccine () [facility] Start: 02-05-2023 Influenza vaccination C [facility] Start: 10-23-2022 Adult depression screening assessment DEPRESSION SCREENING [facility] Start: 02-05-2022 Influ[facility] Start: 11-07-2021 End: 01-07-2022 CBC W Auto Differential panel - Blood CBC + DIFF Lab Routine Class 3 severe obesity with body mass index (BMI) of 50.0 to 59.9 in adult, unspecified obesity type, unspecified whether serious comorbidity present (HCC) Expected: 11/07/2021, Expires: 01/07/2022 [facility] Work Phone: Comment on above: Expected: 11/07/2021 , Expires: 01/07/2022 Start: 11-07-2021 End: 01-07-2022 Comprehensive metabolic 2000 panel - Serum or Plasma COMP METABOLIC PANEL Lab Routine Class 3 severe obesity with body mass index (BMI) of 50.0 to 59.9 in adult, unspecified obesity type, unspecified whether serious comorbidity present (HCC) Expected: 11/07/2021, Expires: 01/07/2022 [facility] Work Phone: Comment on above: Expected: 11/07/2021 , Expires: 01/07/2022 Start: 11-07-2021 End: 01-07-2022 FERRITIN BLD FERRITIN BLD Lab Routine Class 3 severe obesity with body mass index (BMI) of 50.0 to 59.9 in adult, unspecified obesity type, unspecified whether serious comorbidity present (HCC) Expected: 11/07/2021, Expires: 01/07/2022 [facility] Work Phone: Comment on above: Expected: 11/07/2021 , Expires: 01/07/2022 Start: 11-07-2021 End: 01-07-2022 Folate [Mass/volume] in Serum or Plasma FOLATE SERUM Lab Routine Class 3 severe obesity with body mass index (BMI) of 50.0 to 59.9 in adult, unspecified obesity type, unspecified whether serious comorbidity present (HCC) Expected: 11/07/2021, Expires: 01/07/2022 [facility] Work Phone: Comment on above: Expected: 11/07/2021 , Expires: 01/07/2022 Start: 11-07-2021 End: 01-07-2022 Hemoglobin A1c/Hemoglobin.total in Blood HGB A1C Lab Routine PCOS (polycystic ovarian syndrome) Expected: 11/07/2021, Expires: 01/07/2022 [facility] Work Phone: Comment on above: Expected: 11/07/2021 , Expires: 01/07/2022 Start: 11-07-2021 End: 01-07-2022 IRON + TIBC IRON + TIBC Lab Routine Class 3 severe obesity with body mass index (BMI) of 50.0 to 59.9 in adult, unspecified obesity type, unspecified whether serious comorbidity present (HCC) Expected: 11/07/2021, Expires: 01/07/2022 [facility] Work Phone: Comment on above: Expected: 11/07/2021 , Expires: 01/07/2022 Start: 11-07-2021 End: 01-07-2022 LIPID PANEL BASIC LIPID PANEL BASIC Lab Routine Class 3 severe obesity with body mass index (BMI) of 50.0 to 59.9 in adult, unspecified obesity type, unspecified whether serious comorbidity present (HCC) Expected: 11/07/2021, Expires: 01/07/2022 [facility] Work Phone: Comment on above: Expected: 11/07/2021 , Expires: 01/07/2022 Start: 11-07-2021 End: 01-07-2022 PTH INTACT BLD PTH INTACT BLD Lab Routine Class 3 severe obesity with body mass index (BMI) of 50.0 to 59.9 in adult, unspecified obesity type, unspecified whether serious comorbidity present (HCC) Expected: 11/07/2021, Expires: 01/07/2022 [facility] Work Phone: Comment on above: Expected: 11/07/2021 , Expires: 01/07/2022 Start: 11-07-2021 End: 01-07-2022 Thyrotropin [Units/volume] in Serum or Plasma TSH BLD Lab Routine Class 3 severe obesity with body mass index (BMI) of 50.0 to 59.9 in adult, unspecified obesity type, unspecified whether serious comorbidity present (HCC) Expected: 11/07/2021, Expires: 01/07/2022 [facility] Work Phone: Comment on above: Expected: 11/07/2021 , Expires: 01/07/2022 Start: 11-07-2021 End: 01-07-2022 VITAMIN B1 (THIAMINE), WHOLE BLOOD VITAMIN B1 (THIAMINE), WHOLE BLOOD Lab Routine Class 3 severe obesity with body mass index (BMI) of 50.0 to 59.9 in adult, unspecified obesity type, unspecified whether serious comorbidity present (HCC) Expected: 11/07/2021, Expires: 01/07/2022 [facility] Work Phone: Comment on above: Expected: 11/07/2021 , Expires: 01/07/2022 Start: 11-07-2021 End: 01-07-2022 VITAMIN B12 BLOOD VITAMIN B12 BLOOD Lab Routine Class 3 severe obesity with body mass index (BMI) of 50.0 to 59.9 in adult, unspecified obesity type, unspecified whether serious comorbidity present (HCC) Expected: 11/07/2021, Expires: 01/07/2022 [facility] Work Phone: Comment on above: Expected: 11/07/2021 , Expires: 01/07/2022 Start: 11-07-2021 End: 01-07-2022 VITAMIN D 25 HYDROXY VITAMIN D 25 HYDROXY Lab Routine Class 3 severe obesity with body mass index (BMI) of 50.0 to 59.9 in adult, unspecified obesity type, unspecified whether serious comorbidity present (HCC) Expected: 11/07/2021, Expires: 01/07/2022 [facility] Work Phone: Comment on above: Expected: 11/07/2021 , Expires: 01/07/2022 Start: 09-29-2021 End: 09-15-2022 EGD BARIATRIC EGD BARIATRIC Endoscopy Routine Morbid obesity due to excess calories (HCC) Expected: 09/29/2021, Expires: 09/15/2022 [facility] Work Phone: Comment on above: Expected: 09/29/2021 , Expires: 09/15/2022 Start: 05-21-2021 COVID-19 VACCINE (5 - Booster) COVID-19 VACCINE (5 - Booster) [facility] Start: 05-21-2021 COVID-19 VACCINE (5 - Pfizer series) COVID-19 VACCINE (5 - Pfizer series) [facility] Start: 2019 HPV TESTING HPV TESTING [facility] Start: 2010 PAP TESTING PAP TESTING [facility] Start: 2008 Urine microalbumin profile DTAP,TDAP,TD (1 - Tdap) [facility] Start: 2007 HEPATITIS C SCREENING HEPATITIS C SC REENING [facility] Start: 2007 HIV SCREENING HIV SCREENING [facility] Start: 2001 Adult depression screening assessment DEPRESSION SCREENING [facility] Start: 1989 HEPATITIS B (1 of 3 - 3-dose series) HEPATITIS B (1 of 3 - 3-dose series) [facility] Start: 1989 Hepatitis B Vaccine (1 of 3 - 3-dose series) Hepatitis B Vaccine (1 of 3 - 3-dose series) [facility] End: 11-07-2022 ECG COMPLETE ECG COMPLETE ECG Routine Class 3 severe obesity with body mass index (BMI) of 50.0 to 59.9 in adult, unspecified obesity type, unspecified whether serious comorbidity present (HCC) 1 Occurrences starting 11/07/2021 until 11/07/2022 [facility] Work Phone: Comment on above: 1 Occurrences starti ng 11/07/2021 until 11/07/2022 End: 09-16-2022 EGD DIAGNOSTIC EGD DIAGNOSTIC Endoscopy Routine Pre-op exam 1 Occurrences starting 09/16/2021 until 09/16/2022 [facility] Work Phone: Comment on above: 1 Occurrences starti ng 09/16/2021 until 09/16/2022 End: 12-07-2022 Radiologic exam chest 2 views XR CHEST 2V FRONTAL/LAT Radiology Routine Class 3 severe obesity with body mass index (BMI) of 50.0 to 59.9 in adult, unspecified obesity type, unspecified whether serious comorbidity present (HCC) 1 Occurrences starting 11/07/2021 until 12/07/2022 [facility] Work Phone: Comment on above: 1 Occurrences starti ng 11/07/2021 until 12/07/2022 End: 12-07-2022 Us abdominal real time w/image limited US ABD RT UPPER QUADRANT Radiology Routine Class 3 severe obesity with body mass index (BMI) of 50.0 to 59.9 in adult, unspecified obesity type, unspecified whether serious comorbidity present (HCC) 1 Occurrences starting 11/07/2021 until 12/07/2022 [facility] Work Phone: Comment on above: 1 Occurrences starti ng 11/07/2021 until 12/07/2022 [facility] Immunizations Immunization Date Immunization Notes Care Provider Fa cili 03-11-2022 influenza virus vacc ine, unspecified formulation Jona Bermudez MD Work Phone: [facility] Payers Date Payer Category Payer Unknown MMO MMO [employer] [id number] 2021-Present [phone] [address] [place] [address] PPO [id number] 2021 Unknown 1989 Unknown [id number] 1989 Unknown [id number] 1989 Unknown [id number] 1989 Unknown [id number] 1989 Unknown [id number] 1989 Unknown [id number] 1989 Unknown [id number] 1989 Unknown [id number] 1989 Unknown [id number] 1959 Self-pay 1960 Unknown [id number] Social History Date Type Detail Facility Start: 09-15-2021 End: 03-18-2022 Tobacco smoking status [facility] Never smoked tobacco [facility] Start: 09-15-2021 End: 03-18-2022 Tobacco use and exposure Smokeless tobacco non-user [facility] Start: 1990 Sex Assigned At Not on file C [facility] Start: 09-05-2021 End: 03-26-2022 Exposure to SARS-CoV-2 (event) Not sure [facility] Start: 11-12-2021 Alcohol intake Current drinke r of alcohol (finding) [facility] Start: 11-12-2021 History SDOH Alcohol Comment Not weekly [facility] Start: 03-18-2022 End: 12-30-2022 Sex Assigned At [facility] Start: 1990 Sex Assigned At Female F [facility] Tobacco smoking consumption unknown [facility] Other Phone (unformatted): [phone] Start: 02-13-2022 End: 02-23-2022 Exposure to SARS-CoV-2 (event) Yes [facility] Start: 03-18-2022 End: 04-13-2023 Alcohol intake Ex-drinker (finding) [facility] Start: 03-18-2022 End: 12-30-2022 History of Social function [facility] Adult Depression Screening Assessment 0 [facility] Clinical Notes 12-20-2020 to 05-05-[address] - 05/05/2023 3:54 PM Jona Adams MD - 04/13/2023 10:20 AM ESTPatient Bita Lei RD - 12/30/2022 1:16 PM EDTPatient Instructions Note Date & Type Note Facility 05-05-2023 Note HNO ID: [id number] Author: Bita Vigil RD Service: ? Author Type: Registered Dietitian Type: Progress Notes Filed: 05/05/2023 5:03 PM Note Text: The [facility] Nutrition Therapy: Virtual Consult - Re-assessment I have communicated my name and active licensure. The patient?s identity and physical location were verified at the time of this visit. Either the patient or their legal mortician supplies sales representative has been informed of the risks [...] Capsule with 45 mg Iron AND additional 3712-8518 mg per day Calcium Citrate 5. 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 [...] Multivitamin Capsule with 45 mg Iron AND 5892-3378 mg per day Calcium Citrate 5. Exercise: strive for daily activity. Increase as tolerated to goal of 200 minutes/week with combination of cardio and strength training exercise. 6. Practice mindful eating habits-take small portions, eat slowly, chew thoroughly Actions to implement interventions: see assessment Diet History: Breakfast - protein shake (20 gm protein powder, [place] milk +/- PB2) OR eggs, breakfast meat [...] Physical limitations affect (more content not included)... [facility] 05-05-2023 Instructions Bita Vigil, TERENCE - 05/05/2023 5:03 PM EST 1. Protein: [...] Capsule with 45 mg Iron AND additional 7190-5155 mg per day Calcium Citrate 5. Exercise: [...] last 30 minutes documented in this encounter [facility] 05-05-2023 History of Present illness Narrative [facility] Nutrition Therapy: Virtual Consult - Re-assessment I have communicated my name and active licensure. The patient s identity and physical location were verified at the time of this visit. Either the patient or their legal mortician supplies sales representative has been informed of the risks [...] Capsule with 45 mg Iron AND additional 6585-5815 mg per day Calcium Citrate 5. 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 [...] Multivitamin Capsule with 45 mg Iron AND 2626-1389 mg per day Calcium Citrate 5. Exercise: strive for daily activity. Increase as tolerated to goal of 200 minutes/week with combination of cardio and strength training exercise. 6. Practice mindful eating habits-take small portions, eat slowly, chew thoroughly Actions to implement interventions: see assessment Diet History: Breakfast - protein shake (20 gm protein powder, [place] milk +/- PB2) OR eggs, breakfast meat [...] 3:54 PM PAGER: documented in this encounter [facility] 04-13-2023 Note HNO ID: [id number] Author: Jona Johns MD Service: ? Author Type: Physician Type: Progress Notes Filed: 04/13/2023 10:55 AM Note Text: Metabolic Surgery Postoperative Virtual Clinic Visit Name: Funmilayo Conway I have communicated my name and active licensure. The patient's identity and physical location were verified at the time of this visit. Either the patient or their legal mortician supplies sales representative has been informed of the risks [...] next week Jona Cormier MD, FACS, GABI compliance officer [facility] Bariatric Fellowship Account Receivable AssociatePlater Helper laparoscopic Surgery Bariatric and Metabolic [place] [facility] 04-13-2023 History of Present illness Narrative Images from the original note were not included. Metabolic Surgery Postoperative Virtual Clinic Visit Name: Funmilayo Conway I have communicated my name and active licensure. The patient's identity and physical location were verified at the time of this visit. Either the patient or their legal mortician supplies sales representative has been informed of the risks [...] next week Jona Cormier MD, FACS, GABI compliance officer [facility] Bariatric Fellowship Account Receivable AssociatePlater Helper laparoscopic Surgery Bariatric and Metabolic [place] documented in this encounter [facility] 12-30-2022 Note HNO ID: [id number] Author: Bita Vigil RD Service: ? Author [...] states doing well with no current concerns. 4478-6339 calories/day - advancing appropriately 80-100 protein intake/day - meeting needs 64+ fluid intake/day - meeting needs Taking all recommended vitamin/minerals from [facility] 1/day MVI with 45 mg Fe, 600 mg Ca citrated BID, and biotin. No new labs. Resting Metabolic Rate: 1722 Energy needs for weight loss 1631-0039 (15-20 kcals/kg CBW) Protein needs: 85 grams [...] Multivitamin Capsule with 45 mg Iron AND 5521-6620 mg per day Calcium Citrate 5. Exercise: [...] 25 minutes - Group Bita Vigil RD [facility] 12-30-[address] - 12/30/2022 [...] Multivitamin Capsule with 45 mg Iron AND 3588-9856 mg per day Calcium Citrate 5. Exercise: strive for daily activity. Increase as tolerated to goal of 200 minutes/week with combination of cardio and strength training exercise. 6. Practice mindful eating habits-take small portions, eat slowly, chew thoroughly documented in this encounter [facility] 12-30-2022 History of Present illness Narrative [...] states doing well with no current concerns. 3378-7722 calories/day - advancing appropriately 80-100 protein intake/day - meeting needs 64+ fluid intake/day - meeting needs Taking all recommended vitamin/minerals from Bariatric Fusion 1/day MVI with 45 mg Fe, 600 mg Ca citrated BID, and biotin. No new labs. Resting Metabolic Rate: 1722 Energy needs for weight loss 8326-5731 (15-20 kcals/kg CBW) Protein needs: 85 grams [...] Multivitamin Capsule with 45 mg Iron AND 4288-9744 mg per day Calcium Citrate 5. Exercise: [...] Bita Vigil RD documented in this encounter [facility] 09-09-2022 Note HNO ID: [id number] Author: Bita Vigil RD Service: ? Author [...] Rate: 1889 Energy needs for weight loss 4387-9482 (10-15 kcals/kg CBW) Protein needs: 85 grams [...] 32 minutes - Group Bita Vigil RD [facility] 06-09-2022 Note HNO ID: [id number] Author: Bita Vigil RD Service: ? Author Type: Registered Dietitian Type: Progress Notes Filed: 06/09/2022 10:17 AM Note Text: The [facility] Nutrition Therapy: Virtual Consult - Re-assessment [...] mg Iron and Calcium Citrate (total of 6983-9713 mg/day) * take calcium citrate separately from [...] Rate: 1992 Energy needs for weight loss 5165-3360 (10-15 kcals/kg CBW) Protein needs: 85 grams [...] in the AM, 2 in the PM) www.bariatricfusion.com - [employer] [facility]: 1 Bariatric Multivitamin and Calcium Citrate (total of 7567-8103 mg/day) * take calcium citrate separately from Multivitamin with iron at least 2 hours apart and 4 hours apart from additional calcium www.Ulule.[place] - Bariatric Choice: 4 Complete Multivitamins (chewables) per day Www.[email or web address] - Bariatric Advantage: 2 Multivitamins and 3 Calcium Citrate Chewables per day * take calcium citrate separately from Multivitamin with iron at least 2 hours apart and 4 hours apart from additional calcium Www.bariatricadvantage.com 2. Protein goal: 85 grams protein/day 3. [...] veggie OR chili Snack - none OR bolivian yogurt Dinner - same as lunch Snack [...] 1-3 days/week) Anthropometrics: (more content not included)... [facility] 06-09-[address] - 06/09/2022 [...] mg Iron and Calcium Citrate (total of 8995-5335 mg/day) * take calcium citrate separately from [...] assessment (294 lbs) documented in this encounter [facility] 06-09-2022 History of Present illness Narrative [facility] Nutrition Therapy: Virtual Consult - Re-assessment [...] mg Iron and Calcium Citrate (total of 8330-1577 mg/day) * take calcium citrate separately from [...] yet available to review. Resting Metabolic Rate: 1993 Energy needs for weight loss 0312-8902 (10-15 kcals/kg CBW) Protein needs: 85 grams [...] in the AM, 2 in the PM) www.bariatricfusion.[place] - [employer]: 1 Bariatric Multivitamin and Calcium Citrate (total of 5196-0854 mg/day) * take calcium citrate separately from Multivitamin with iron at least 2 hours apart and 4 hours apart from additional calcium www.Ulule.[place] - Bariatric Choice: 4 Complete Multivitamins (chewables) per day Www.[email or web address] - Bariatric Advantage: 2 Multivitamins and 3 Calcium Citrate Chewables per day * take calcium citrate separately from Multivitamin with iron at least 2 hours apart and 4 hours apart from additional calcium Www.bariatricadFancyage.[place] 2. Protein goal: 85 grams protein/day 3. [...] veggie OR chili Snack - none OR bolivian yogurt Dinner - same as lunch Snack [...] is 43.38 kg/m . Resting Metabolic Rate: 1992 Malnutrition Screening Significant unintentional weight loss? No [...] Likelihood of Adherence: Moderate Referred/Supervised by: Casa/Yobany MNT Billing Type: Re-assess/15 min 1 unit SIGNATURE: Bita Vigil RD PATIENT NAME: Funmilayo Conway DATE: 06/09/2022 TIME: 9:25 AM PAGER: documented in this encounter [facility] 05-17-2022 Note HNO ID: [id number] Author: Louise Tobin, PhD Service: ? Author Type: Psychologist Type: Progress Notes Filed: 05/18/2022 8:58 AM Note Text: [facility] DEPARTMENT OF PSYCHIATRY AND PSYCHOLOGY/[facility] Bariatric Behavioral Services Progress Note May 17, 2022 Billing codes: FAYE Tobin CPT Code: 18094 Brief Emotional/Behavioral Assessment with scoring/documentation [id number] Virtual GROUP PSYCHOTHERAPY Time initiated session: 8:30 AM to 9:30 AM Index Surgery Date of Surgery: 03/26/22 Surgeon: Dr. Cormier. Surgical Procedure: gastric bypass Current weight: 283 pounds Psychologist: Pieadd Pt was seen in a virtual group. Participants were given the opportunity to discuss their experience since surgery and ask questions of other group members. The group hair or beauty salon assistant addressed questions and concerns related to psychological [...] hoped. She was able to navigate a [employer] well - I felt normal. Patient mood [...] BMI team Louise Tobin, PhD, RD, LD, [facility] ACS-CEP, Psychologist [facility] 05-07-2022 History of Present illness Narrative Metabolic [...] & Bariatric Surgery Fellow Bariatric & Metabolic [place] [facility] STAFF ATTESTATION: I have reviewed the [...] which included preparing to see the patient, [id number] patient care, completing clinical documentation, obtaining and/or [...] Jona Cormier MD documented in this encounter [facility] 04-08-2022 History of Present illness Narrative BARIATRIC SURGERY CLINIC FOLLOW UP NOTE Clinic Date: 04/08/2022 Funmilayo Conway, 31 year old [address] [facility] [address] This visit was performed virtually (phone conversation) [...] 03/18/22: 143 kg (315 lb 4.8 oz). [place] weight: 68.5 kg (150 lb 15.1 oz) [...] rashes or skin changes. PHYSICAL EXAM: PHYSICAL EXAMINATION:[facility] 03/16/2021 GENERAL: No apparent distress. Pt is [...] and Bariatric Surgery documented in this encounter [facility] 03-18-2022 History of Present illness Narrative BARIATRIC SURGERY PREOPERATIVE VISIT NOTE Name: Funmilayo Conway Medical Record: [id number] Encounter No.: [id number] Funmilayo Conway is a 31 year old [...] which included preparing to see the patient, [id number] patient care, completing clinical documentation, obtaining and/or reviewing separately obtained history, counseling and educating the patient/family/caregiver, and ordering medications, tests, or procedures. Prescriptions were explained and provided to the patient. Jona Bermudez MD Advanced Laparoscopic and Bariatric Surgery documented in this encounter [facility] 03-18-2022 Instructions Kwamerowan GordonGUY pena.NEWS SPECIALIST - 03/18/2022 2:08 PM EDT PATIENT PREOPERATIVE INSTRUCTIONS Jerardo Johns* has scheduled you for your procedure at this surgery center: [facility] Scheduling Office: [phone] [address] [place] [address]. Please read below carefully for your personalized [...] Procedures: - YOU MUST HAVE A RESPONSIBLE FLATWORK IRONER TAKE YOU HOME. A MORTGAGE CLOSING CLERK OR UPHOLSTERED GOODS CRAFTER CANNOT BE MADE A RESPONSIBLE FLATWORK IRONER. - We recommend that a responsible person [...] call the Wednesday before. Your surgeon s industrial paramedic will tell you what time to call the office. - If you have not reached the departmental industrial paramedic by 5 P.M., call [phone] after 5 P.M. the day before your surgery. Please be aware that emergency situations arise, which may delay or change your surgical time. If this happens, we will notify you as soon as possible and regret any inconvenience. If you already have an Advance Directive, please fax a copy to [phone] or email to for it to be [...] Kwame Rodriguez APRN.JOSE documented in this encounter [facility] 03-18-2022 History and physical note HISTORY AND PHYSICAL EXAMINATION SERVICE DATE: 03/18/2022 SERVICE TIME: 1:59 PM PRIMARY CARE PHYSICIAN: Marco A Byrd MD, MD REASON FOR VISIT: Funmilayo [...] fevers. Neuro: No history of TIA's, stroke, CIVIL ENGINEERING PROFESSIONAL tumor, impaired sensorium, hemiplegia, paraplegia or quadraplegia. No neurological symptoms or problems. Respiratory: No history of current cough or dyspnea, or pneumonia in the past 6 weeks. No history of respiratory/pulmonary symptoms or problems. Cardiovascular: No history of HTN requiring medication, no history of angina, CHF, SC, cardiac surgery or stents. Denies rest pain, [...] or incontinence,, stones or chronic kidney disease CROP SETTING OUT MACHINE OPERATOR: Negative for abnormal vaginal bleeding, abnormal vaginal [...] or word sense that escaped review. SIGNATURE: Kwmae Rodriguez APRN.DNP PATIENT NAME: Funmilayo Conway DATE: March 18, 2022 TIME: 1:59 PM documented in this encounter [facility] 03-13-2022 Miscellaneous Notes BMI SPECIALTY CARE [...] Jagruti Escobar RN documented in this encounter [facility] 03-10-[address] - [...] fish, low fat dairy - cottage cheese, Italian yogurt, light yogurt, cheese, ricotta cheese, nuts, [...] - Celebrate: multiple options- look on website Www.SynkerebrateKreixs.com - [facility] [facility]: 1 Multivitamin and Calcium Citrate twice a day (total of 0764-7328 mg/day) * take calcium citrate separately from Multivitamin with iron at least 2 hours apart and 4 hours apart from additional calcium www.Bundle ItarenoSolar Titan.[place] - Bariatric Choice: 4 complete multivitamins (chewable) per day Www.bariatricchoice.com - Bariatric Advantage: 2 Multivitamins and 3 Calcium Citrate Chewable per day * take calcium citrate separately from Multivitamin with iron at least 2 hours apart and 4 hours apart from additional calcium www.bariatricadFancyage.[place] B complex with at least 75 mg [...] weeks post op documented in this encounter [facility] 03-10-2022 History of Present illness Narrative [...] fish, low fat dairy - cottage cheese, Italian yogurt, light yogurt, cheese, ricotta cheese, nuts, [...] - Celebrate: multiple options- look on website Www.Times pace Intelligent TechnologyrategDine.[place] - [facility]: 1 Multivitamin and Calcium Citrate twice a day (total of 7226-2296 mg/day) * take calcium citrate separately from Multivitamin with iron at least 2 hours apart and 4 hours apart from additional calcium www.Ulule.[place] - Bariatric Choice: 4 complete multivitamins (chewables) per day Www.bariatricchoice.[place] - Bariatric Advantage: 2 Multivitamins and 3 Calcium Citrate Chewables per day * take calcium citrate separately from Multivitamin with iron at least 2 hours apart and 4 hours apart from additional calcium www.bariatricadvantage.[place] B complex with at least 75 mg [...] fish, low fat dairy - cottage cheese, Italian yogurt, light yogurt, cheese, ricotta cheese, nuts, [...] - Celebrate: multiple options- look on website Www.celebratevitamins.[place] - [facility]: 1 Multivitamin and Calcium Citrate twice a day (total of 8973-1239 mg/day) * take calcium citrate separately from Multivitamin with iron at least 2 hours apart and 4 hours apart from additional calcium www.Ulule.[place] - Bariatric Choice: 4 complete multivitamins (chewable) per day Www.bariatricchoice.com - Bariatric Advantage: 2 Multivitamins and 3 Calcium Citrate Chewable per day * take calcium citrate separately from Multivitamin with iron at least 2 hours apart and 4 hours apart from additional calcium www.bariatricadFancyage.[place] B complex with at least 75 mg [...] - Group Signed by: Francoise Hardwick RDN, SARAH GARCIA documented in this encounter [facility] 12-23-2021 Miscellaneous Notes The following approved [...] Danny Cristina DO documented in this encounter [facility] 12-03-2021 Nurse Note EKG completed and reviewed; documented in this encounter [facility] 12-01-2021 History of Present illness Narrative [...] in the AM, 2 in the PM) www.bariatricfusion.com - [facility]: 1 Bariatric Multivitamin and Calcium Citrate (total of 3364-7149 mg/day) * take calcium citrate separately from Multivitamin with iron at least 2 hours apart and 4 hours apart from additional calcium www.Ulule.[place] - Bariatric Choice: 4 Complete Multivitamins (chewables) per day Www.bariatricchoice.[place] - Bariatric Advantage: 2 Multivitamins and 3 Calcium Citrate Chewables per day * take calcium citrate separately from Multivitamin with iron at least 2 hours apart and 4 hours apart from additional calcium Www.bariatricadvantage.com Pre-op goal weight: 319 pounds Protein needs: [...] fish, low fat dairy - cottage cheese, Italian yogurt, light yogurt, cheese, ricotta cheese, nuts, [...] - Celebrate: multiple options- look on website Www.Synkerebratevitamins.[place] - [facility]: 1 Multivitamin and Calcium Citrate twice a day (total of 6695-2869 mg/day) * take calcium citrate separately from Multivitamin with iron at least 2 hours apart and 4 hours apart from additional calcium www.Ulule.[place] - Bariatric Choice: 4 complete multivitamins (chewables) per day Www.bariatricchoice.[place] - Bariatric Advantage: 2 Multivitamins and 3 Calcium Citrate Chewables per day * take calcium citrate separately from Multivitamin with iron at least 2 hours apart and 4 hours apart from additional calcium www.bariatricadSimple IT.[place] B complex with at least 75 mg [...] Davida Kaur MS,RD,CSOWM,LD documented in this encounter [facility] 11-28-2021 Note HNO ID: [id number] Author: Keira Salvador RDMS, RVT Service: Radiology Author Type: Training Project Manager Type: Progress Notes Filed: 11/28/2021 1:52 PM [...] RDMS, RVT November 28, 2021 1:52 PM [facility] 11-28-2021 History of Present illness [...] 2021 1:52 PM documented in this encounter [facility] 11-28-2021 Note HNO ID: [id number] Author: RT Leann(Naresh) Service: ? Author Type: [...] RT Leann(Naresh) November 28, 2021 12:58 PM [facility] 11-28-2021 History of Present illness [...] BHARAT Noriega) November 28, 2021 12:58 PM documented in this encounter [facility] 11-26-2021 History and physical note UPDATED [...] Pcp This is a virtual visit using [employer] video visit. It required patient-provider interaction for [...] fevers. 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 No neurological symptoms or problems. Respiratory: No history of current cough or dyspnea, or pneumonia in the past 6 weeks. No history of respiratory/pulmonary symptoms or problems. Cardiovascular: No history of HTN requiring medication, no history of angina, CHF, SC, cardiac surgery or stents. Denies rest pain, [...] > 1 time per night or hematuria. 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 Assessment Morbidly obese (HCC) Assessment: Body [...] or younger Non-male patient STOP-Bang Score: 3 [id number] Score: Age: <65 Sex: female CHF history: No Hypertension history: No Stroke/TIA/thromboembolism history: No Vascular disease history: No Diabetes history: No [id number] Score: 1 ASA Class: 3 ANESTHESIA FINDINGS: [...] PM PAGER/CONTACT #: documented in this encounter [facility] 11-12-2021 History and physical note Images from the original note were not included. HISTORY AND PHYSICAL EXAMINATION SERVICE DATE: 11/12/2021 SERVICE TIME: 3:26 PM PRIMARY CARE PHYSICIAN: No Pcp This is a virtual visit using [employer] video visit. It required patient-provider interaction for [...] fevers. 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 No neurological symptoms or problems. Respiratory: No history of current cough or dyspnea, or pneumonia in the past 6 weeks. No history of respiratory/pulmonary symptoms or problems. Cardiovascular: No history of HTN requiring medication, no history of angina, CHF, SC, cardiac surgery or stents. Denies rest pain, [...] > 1 time per night or hematuria. 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 Assessment Morbidly obese (HCC) Assessment: Body [...] or younger Non-male patient STOP-Bang Score: 3 [id number] Score: Age: <65 Sex: female CHF history: No Hypertension history: No Stroke/TIA/thromboembolism history: No Vascular disease history: No Diabetes history: No [id number] Score: 1 ASA Class: 3 ANESTHESIA FINDINGS: [...] PM PAGER/CONTACT #: documented in this encounter [facility] 11-12-2021 Instructions Maria T Lares APRN.CNP - 11/12/2021 3:40 PM EDT PATIENT PREOPERATIVE INSTRUCTIONS Mulugeta Salmon MD has scheduled you for your procedure at this surgery center: [facility]: [phone] --[address] [place] [address]. Please enter through the entrance closest to [...] Procedures: - YOU MUST HAVE A RESPONSIBLE FLATWORK IRONER TAKE YOU HOME. A MORTGAGE CLOSING CLERK OR UPHOLSTERED GOODS CRAFTER CANNOT BE MADE A RESPONSIBLE FLATWORK IRONER. - We recommend that a responsible person [...] Advance Directive, please fax a copy to [phone] or email to for it to be [...] T Lares APRN.CNP documented in this encounter [facility] 11-07-2021 Instructions Danny Cristina, - 11/07/2021 9:39 AM EDT Lovely Conway , Thank you for completing your visit today and we welcome you to the surgical program. We are sure that you will still have some additional questions and encourage you to reach out to your care provider via [employer] OR your Patient Navigator. Patient Navigators are [...] free to ask for a hard copy. [email or web address] en Once you complete all of the requirements (testing, consultations, diet, etc) from each provider, please call [phone] and select option #5 to initiate insurance approval. Please note scheduling information It is important to keep track of your scheduled appointments to ensure successful completion of our surgical program. Any missed appointments can further delay your pre-surgical work-up. [facility] does offer an opt-in option for getting text message appointment reminders. Please follow the link below if you would like to opt into this service. [email or web address] As part of your surgical work up, [...] these tests. You may call your local [facility] to get an appointment. - Lab work- No appointment is needed for this, you may complete at any [facility] Laboratory. These are usually fasting labs, please be sure to fast (only water permitted) for 10-12 hours prior to the test. -Sleep Study- Please call [phone] or [phone] to get this appointment set up. -Sleep Medicine Consult- (Only needed if sleep study confirms sleep apnea) Please call [phone] or [phone] to schedule an appointment. -Upper GI/ EGD- Please call [phone] to schedule. -Provider follow up visit- Please call [phone] OR [phone] to schedule. Any testing that is completed outside of [facility] will need faxed to [phone]. We look forward to working with you on this journey, Danny Cristina DO documented in this encounter [facility] 11-07-2021 History of Present illness Narrative [...] healthy diet. Since the visit with the salesperson automobiles, eating less starch, not skipping meals, and eating more vegetables. Characterization of diet:Structured. History of eating disorders: negative Previous Obesity Treatments: Apriva diets and dietitian. Exercise: Regular exercise: walking 3 times a week Barriers to regular exercise? None Stress test: no Functional Status: Run a short distance (8.00 METs) Sleep: TANI NO ; CPAP NO Quality:poor, Numerous awakenings Direct Support Professional Caregiver Work? NO STOP BANG 1. Snoring : [...] PCOS Vitamin D deficiency No history of SC, COPD, asthma, peptic ulcer disease, dyslipidemia, hypothyroidism, [...] Danny Cristina DO documented in this encounter [facility] 10-27-2021 Evaluation note Encounter Date Diagnosis [...] Patient care instructions given in writting by [facility] At Home document. [place] Other [id number] History of Present illness Narrative* Jagruti Escobar RN - 09/16/2021 9:47 AM EDT Opened in error. [facility] History of Present illness Narrative* Jona Bermudez MD - 09/15/2021 3:18 PM EDT Images from the original note were not included. [facility] DEPARTMENT OF SURGERY Jona Cormier M.D. [address] [facility], [address] [place] [address] NAME: Funmilayo Conway CLINIC NO: [id number] DATE OF SERVICE: September 15, 2021 This [...] which included preparing to see the patient, dymq-kv-jhly patient care, completing clinical documentation, obtaining and/or reviewing separately obtained history, performing a medically appropriate examination, counseling and educating the pat ient/family/caregiver and ordering medications, tests, or procedures. Jona Bermudez MD Advanced Laparoscopic and Bariatric Surgery [facility] NoteChief Complaint consultation for GI complaints [...] Vaccine Date Status Com (more content not included)...[facility]:Result Comment: Electronically Signed By: EDY JOYCE, [place] Link.lito\Date and Time Signed: 08/04/21 17:32 [id number] NoteAdmission Information Admitting Physician - Neela LIM [...] voiding. Patient is eager to be discharged toozark. --Other chronic medical conditions as outlined in note. Refer to d/c plan below: -Case reviewed and discussed with Dr. Graham who is in agreement with current d/c plan. Case will be reviewed and discussed with PCP or bail bonding agent MD once the hospital braille operator is able to reach him/her. I [...] made to ensure accuracy, however, inadvertently computerized farm manager mistakes may be present. Significant Findings [...] and spleen are not included within the [id number]-[id number] of this renal stone protocol study. The [...] Ferreira DO 12/20/20 07:33: (more content not included)...[facility] Hospital[facility] on above:Result Comment: Electronically Signed By: Prerna CAVANAUGH\.br\Date and Time Signed: 12/20/20 10:28 EDT\.br\Electronically Co-Signed By: Jarred GRAHAM MD\.br\Date and Time Co-Signed: 01/13/21 08:22 [id number] NoteMicrobiology PROCEDURE: Blood Culture Charcoal [R1] SOURCE: Blood BODY SITE: Arm L COLLECTED DATE/TIME: 12/19/2020 17:25 EDT RECEIVED DATE/TIME: 12/19/2020 17:39 EDT START DATE/TIME: 12/19/2020 17:39 EDT FREE TEXT SOURCE: IV start Jhon DO, Shiva S. Jhon DO, Shiva S. FINAL REPORTS Final Report [] Verified Date/Time: 12/26/2020 18:00 EDT No growth at 7 days. Performing Locations R1: [facility] [address] [place] [address], [address] [place], [place] [address]Comment on above:Performed By: #### [id number] #### [facility] [address] [place] [address] [id number] NoteMicrobiology PROCEDURE: Blood Culture Charcoal [R1] SOURCE: Blood BODY SITE: Arm R COLLECTED DATE/TIME: 12/19/2020 17:30 EDT RECEIVED DATE/TIME: 12/19/2020 17:39 EDT START DATE/TIME: 12/19/2020 17:39 EDT FREE TEXT SOURCE: Jhon DO, Shiva S. Jhon DO, Shiva S. FINAL REPORTS Final Report [] Verified Date/Time: 12/26/2020 18:00 EDT No growth at 7 days. Performing Locations R1: This test was performed at: [facility], [address] [place] [address], [address] [place], [place] [address]Comment on above:Performed By: #### [id number] ####[facility] [address] [place] [address] [phone] Marsha Flores entered room at this time to discuss discharge planning. Patient is alert & involved in plan of care. Labs & diagnostics reviewed. DME discussed. PCP/insurance information verified. Contact information provided with white board updated. Observation status. Patient states she is f eeling better this morning. Lives at home independently with spouse. Will drive herself home upon discharge. Denies need for CRM to call family for updates, states will be in to visit. No further questions. Anticipate no discharge needs. Anticipated discharge home 12/20. CRM remains available.[facility] HospitalComment [facility] above:Result Comment: Electronically Signed By: Janusz SOLIS, Sandra Dobbins.lito\Date and Time Signed: 12/20/20 08:26 [id number] Note Chief Complaint From home, patient complains [...] psychiatric thoughts. Lab Results WBC: 8.4 E9/L (12/19/20 17:30:00) RBC: 4.7 E12/L (12/19/20:30:00) Hgb: 13.8 gm/dL (12/19/20:30:00) Hct: 41.2 % (12/19/20:30:00) MCV: 88.3 fL (12/19/20 17:30:00) MCH: 29.6 pg (12/19/20:30:00) MCHC: 33.5 gm/dL (12/19/20:30:00) RDW: 12.7 % (12/19/20 17:30:00) Platelet: 188 E9/L (12/19/20 17:30:00) MPV: 8.3 fL (12/19/20:30:00) Neutro Auto: 61.5 % (12/19/20:30:00) Lymph Auto: 29.4 % (12/19/20:30:00) Arthur Auto: 7.8 % (12/19/20 17:30:00) Eos Auto: 0.6 % (12/19/20:30:00) Basophil Auto: 0.7 % (12/19/20:30:00) Neutro Absolute: 5.1 E9/L (12/19/20 17:30:00) Lymph Absolute: 2.5 E9/L (12/19/20:30:00) Arthur Absolute: 0.7 E9/L (12/19/20:30:00) Eos Absolute: 0.1 E9/L (12/19/20:30:00) Basophil Absolute: 0.1 E9/L (12/19/20:30:00) Glucose Lvl: 90 mg/dL (12/19/20:30:00) BUN: 6 mg/dL (12/19/20:30:00) Creatinine: 0.5 mg/dL (12/19/20:30:00) eGFR: >60 (12/19/20:30:00) eGFR AA: >60 (12/19/20:30:) BUN/Creat Ratio: 12 (12/19/20:30:) Sodium Lvl: 138 mmol/L (12/19/20:30:00) Potassium Lvl: 3.8 mmol/L (12/19/20:30:00) Chloride: 103 mmol/L (12/19/20::00) CO2: 25 mmol/L (12/19/20::) AGAP: 14 mEq/L [...] See #1 3. L (more content not included)...[facility] HospitalComment on above: Result Comment: Electronically Signed By: Neela LIM DO\Date and Time Signed: 12/20/20 05:29 EDTEvaluation note* Diagnosis Morbid obesity due to excess calories (HCC)- Primary History of delivery Other postprocedural status [facility]* Diagnosis Pre-op exam- Primary Preoperative examination, unspecified documented in this encounter [facility] note* Diagnosis Morbid obesity (HCC)- Primary Morbid obesity documented in this encounter [facility] note* Diagnosis Class 3 severe obesity with body mass index (BMI) of 50.0 to 59.9 in adult, unspecified obesity type, unspecified whether serious comorbidity present (HCC)- Primary PCOS (polycystic ovarian syndrome) Polycystic ovaries documented [facility]* Diagnosis Preoperative examination- Primary Preoperative examination, unspecified Morbidly obese (HCC) Morbid obesity Fatty liver Other chronic nonalcoholic liver disease Anxiety and depression Dysthymic disorder documented in this encounter [facility] note* Diagnosis Pre-op exam Preoperative examination, unspecified documented in this encounter [facility] note* Diagnosis Class 3 severe obesity with body mass index (BMI) of 50.0 to 59.9 in adult, unspecified obesity type, unspecified whether serious comorbidity present (HCC) documented in this encounter [facility] note* Diagnosis Class 3 severe obesity with body mass index (BMI) of 50.0 to 59.9 in adult, unspecified obesity type, unspecified whether serious comorbidity present (HCC)- Primary Dietary counseling and surveillance Dietary surveillance and counseling PCOS (polycystic ovarian syndrome) Polycystic ovaries documented in this encounter [facility] note* Diagnosis Class 3 severe obesity with body mass index (BMI) of 50.0 to 59.9 in adult, unspecified obesity type, unspecified whether serious comorbidity present (HCC) documented [facility]* Diagnosis Morbid obesity (HCC)- Primary Morbid obesity documented in this encounter [facility] noteNo assessment information [facility]Sal[facility] Work Phone: Evaluation note* Diagnosis BMI 50.0-59.9, adult (HCC)- Primary Body Mass Index 50.0-59.9, adult Dietary counseling Dietary surveillance and counseling Morbid obesity (HCC) Morbid obesity documented in this encounter [facility] note* Diagnosis Anxiety and depression Dysthymic disorder Morbid obesity (HCC) Morbid obesity [facility]* Diagnosis BMI 50.0-59.9, adult (HCC)- Primary Body Mass Index 50.0-59.9, adult PCOS (polycystic ovarian syndrome) Polycystic ovaries History of delivery Other postprocedural status Fatty liver Other chronic nonalcoholic liver disease Morbid obesity (HCC) Morbid obesity documented in this encounter [facility] note* Diagnosis Status post gastric bypass for obesity- Primary Bariatric surgery status Obesity, Class III, BMI 40-49.9 (morbid obesity) (HCC) Morbid obesity documented in this encounter [facility] note* Diagnosis History of Cathie-en-Y gastric bypass- Primary Bariatric surgery status documented in this encounter [facility] note* Diagnosis S/P gastric bypass- Primary Bariatric surgery status Impaired intestinal absorption Unspecified intestinal malabsorption Dietary counseling and surveillance Dietary surveillance and counseling documented in this encounter [facility] note* Diagnosis S/P gastric bypass- Primary Bariatric surgery status Dietary counseling and surveillance Dietary surveillance and counseling documented in this encounter [facility] note* Diagnosis S/P gastric bypass- Primary Bariatric surgery status documented in this encounter [facility] note* Diagnosis S/P gastric bypass- Primary Bariatric surgery status Impaired intestinal absorption Unspecified intestinal malabsorption Dietary counseling and surveillance Dietary surveillance and counseling documented in this encounter [facility] general Narrative - Reported* Type Description Date Medical History PCOS Medical History chronic depression Medical History anxiety Surgical History tonsillectomy and adenoidectomy x2 Surgical History wisdom teeth Surgical History cyst removal from left foot Surgical History nasal surgery Surgical History C section Hospitalization History see above [place] Other [facility] for referral (narrative)* Outpatient Procedure (Routine) - Pending Review Specialty Diagnoses / Procedures Referred By Vipin kunz Referred [facility] Diagnoses Morbid obesity due to excess calories (HCC) Procedures EGD BARIATRIC ESOPHAGOGASTRODUODENOSC OPY TRANSORAL DIAGNOSTIC Jona Johns MD [address] [phone] [facility] [place] [address] Referral ID Status Reason Start Date Expiration Date Visits Requested Visits Authorized [id number] Pending Review Auto-Generat ed Referral 09/29/2021 09/15/2022 1 1 [facility] for referral (narrative)* Outpatient Procedure (Routine) - Authorized Specialty Diagnoses / Procedures Referred By Vipin kunz Referred To Contact [facility] Diagnoses Pre-op exam Procedures EGD DIAGNOSTIC ESOPHAGOGASTRODUODENOSC OPY TRANS[place] [address] [place] [address] [facility] [place] [address] [place] [address] Referral ID Status Reason Start Date Expiration Date Visits Requested Visits Authorized [id number] Authorized Auto-Generat ed Referral 09/16/2021 09/16/2022 1 1 [facility] for referral (narrative)* Diagnostic Procedure Only (Routine) - Pending Review Specialty Diagnoses / Procedures Referred By Contac t Referred To Contact [facility] Diagnoses Class 3 severe obesity with body mass index (BMI) of 50.0 to 59.9 in adult, unspecified obesity type, unspecified whether serious comorbidity present (HCC) Procedures US ABD RT UPPER QUADRANT US ABDOMINAL REAL TIME W/IMAGE LIMITED Danny Cristina DO [address] [facility] [place] [address] [facility] Referral ID Status Reason Start Date Expiration Date Visits Requested Visits Authorized [id number] Pending Review Auto-Generat ed Referral 11/07/2021 12/07/2022 [...] W/LEAST 12 LDS W/I&R Danny Cristina DO [address] [place] [address] [place] [address] Referral ID Status Reason Start Date Expiration Date Visits Requested Visits Authorized [id number] Pending Review Auto-Generat ed Referral 11/07/2021 11/07/2022 1 1 T [facility] for referral (narrative)* Outpatient Procedure (Routine) - Closed Specialty Diagnoses / Procedures Referred By Vipin t Referred To Contact [facility] Diagnoses Pre-op exam Procedures EGD DIAGNOSTIC ESOPHAGOGASTRODUODENOSC OPY TRANSORAL [place] [address] [place] [address] [facility] [place] [address] [place] [address] Referral ID Status Reason Start Date Expiration Date V isits Requested Visits Authorized [id number] Closed Auto-Generate d Referral 09/16/2021 09/16/2022 1 1 [facility] for referral (narrative)* Diagnostic Procedure Only (Routine) - Closed Specialty Diagnoses / Procedures Referred By Vipin t Referred To Contact [facility] Diagnoses Class 3 severe obesity with body mass index (BMI) of 50.0 to 59.9 in adult, unspecified obesity type, unspecified whether serious comorbidity present (HCC) Procedures US ABD RT UPPER QUADRANT US ABDOMINAL REAL TIME W/IMAGE LIMITED Danny Cristina DO [address] [id number] [facility] Referral ID Status Reason Start Date Expiration Date V isits Requested Visits Authorized [id number] Closed Auto-Generate d Referral 11/07/2021 12/07/2022 1 1 [facility] for visit Narrative* Outpatient Procedure (Routine) - Closed Specialty Diagnoses / Procedures [facility] Diagnoses Pre-op exam Procedures EGD DIAGNOSTIC ESOPHAGOGASTRODUODENOSC OPY TRANSORAL [place] [address] [id number] [facility] [place] [address] [phone] Referral ID Status Reason Start Date Expiration Date V isits Requested Visits Authorized [id number] Closed Auto-Generate d Referral 09/16/2021 09/16/2022 1 [facility] Diagnostic Procedure Only (Routine) - Closed Specialty Diagnoses / Procedures Referred By Vipin kunz Referred To Contact [facility] Diagnoses Class 3 severe obesity with body mass index (BMI) of 50.0 to 59.9 in adult, unspecified obesity type, unspecified whether serious comorbidity present (HCC) Procedures US ABD RT UPPER QUADRANT US ABDOMINAL REAL TIME W/IMAGE LIMITED Danny Cristina, [address] [place] [address] [facility] Referral ID Status Reason Start Date Expiration Date V isits Requested Visits Authorized [id number] Closed Auto-Generate d Referral 11/07/2021 12/07/2022 1 1 [facility] Summary Purpose Family History No Family History Records FoundNo Family History Records FoundNo Family History Records FoundNo Family History Records FoundNo Family History Records FoundNo Family History Records FoundNo Family History Records FoundNo Family History Records Found Advance Directives No Advanced Directives Records FoundDocuments on File Type Date Recorded Patient Gold Reclaimer Expl anation Advance Directive(s) 10/27/2021 6:10 PM Documents on File Type Date Recorded Patient Gold Reclaimer Expl anation Advance Directive(s) 10/27/2021 6:10 PM Advance Directive Response Recorded Date/ Time Advance Directives No July 04, 2019 11:44am Chief Complaint and Reason for Visit Chief Complaint wellness Additional Source Comments INFORMATION SOURCE (unrecogn ized section and content) DATE CREATED AUTHOR 09/01/2021 [facility] DATE CREATED AUTHOR AUTHOR'S ORGANIZ ATION 11/13/2021 [facility] DATE CREATED AUTHOR AUTHOR'S ORGANIZ ATION 12/05/2021 [facility] DATE CREATED AUTHOR AUTHOR'S ORGANIZ ATION 01/08/2022 [facility] DATE CREATED AUTHOR AUTHOR'S ORGANIZ ATION 01/10/2022 [facility] DATE CREATED AUTHOR AUTHOR'S ORGANIZ ATION 02/13/2022 [facility] DATE CREATED AUTHOR AUTHOR'S ORGANIZ ATION 05/08/2023 [facility] DATE CREATED AUTHOR AUTHOR'S ORGANIZ ATION 11/27/2023 [facility] EPIC Source Comments (unrecognize d section and content) In the event this informatio n is protected by the Federal Confidentiality of Alcohol and Drug Abuse Patient Records regulations: The Federal rules restrict any use of the information to criminally investigate or prosecute any alcohol or drug abuse patient.[facility] the event this information is protected by the Federal Confidentiality of Alcohol and Drug Abuse Patient Records regulations: The Federal rules restrict any use of the information to criminally investigate or prosecute any alcohol or drug abuse patient.[facility] Hospital[facility] the event this information is protected by the Federal Confidentiality of Alcohol and Drug Abuse Patient Records regulations: The Federal rules restrict any use of the information to criminally investigate or prosecute any alcohol or drug abuse patient.[facility] Hospital[facility] the event this information is protected by the Federal Confidentiality of Alcohol and Drug Abuse Patient Records regulations: The Federal rules restrict any use of the information to criminally investigate or prosecute any alcohol or drug abuse patient.[facility] Hospital[facility] the event this information is protected by the Federal Confidentiality of Alcohol and Drug Abuse Patient Records regulations: The Federal rules restrict any use of the information to criminally investigate or prosecute any alcohol or drug abuse patient.[facility] Hospital[facility] the event this information is protected by the Federal Confidentiality of Alcohol and Drug Abuse Patient Records regulations: The Federal rules restrict any use of the information to criminally investigate or prosecute any alcohol or drug abuse patient.[facility] Hospital[facility] the event this information is protected by the Federal Confidentiality of Alcohol and Drug Abuse Patient Records regulations: The Federal rules restrict any use of the information to criminally investigate or prosecute any alcohol or drug abuse patient.[facility] Hospital[facility] the event this information is protected by the Federal Confidentiality of Alcohol and Drug Abuse Patient Records regulations: The Federal rules restrict any use of the information to criminally investigate or prosecute any alcohol or drug abuse patient.[facility] HospitalIn the event this information is protected by the Federal Confidentiality of Alcohol and Drug Abuse Patient Records regulations: The Federal rules restrict any use of the information to criminally investigate or prosecute any alcohol or drug abuse patient.[facility] Hospital[facility] the event this information is protected by the Federal Confidentiality of Alcohol and Drug Abuse Patient Records regulations: The Federal rules restrict any use of the information to criminally investigate or prosecute any alcohol or drug abuse patient.[facility] Hospital[facility] the event this information is protected by the Federal Confidentiality of Alcohol and Drug Abuse Patient Records regulations: The Federal rules restrict any use of the information to criminally investigate or prosecute any alcohol or drug abuse patient.[facility] HospitalIn the event this information is protected by the Federal Confidentiality of Alcohol and Drug Abuse Patient Records regulations: The Federal rules restrict any use of the information to criminally investigate or prosecute any alcohol or drug abuse patient.[facility] HospitalIn the event this information is protected by the Federal Confidentiality of Alcohol and Drug Abuse Patient Records regulations: The Federal rules restrict any use of the information to criminally investigate or prosecute any alcohol or drug abuse patient.[facility] HospitalIn the event this information is protected by the Federal Confidentiality of Alcohol and Drug Abuse Patient Records regulations: The Federal rules restrict any use of the information to criminally investigate or prosecute any alcohol or drug abuse patient.[facility] Hospital[facility] the event this information is protected by the Federal Confidentiality of Alcohol and Drug Abuse Patient Records regulations: The Federal rules restrict any use of the information to criminally investigate or prosecute any alcohol or drug abuse patient.[facility] HospitalIn the event this information is protected by the Federal Confidentiality of Alcohol and Drug Abuse Patient Records regulations: The Federal rules restrict any use of the information to criminally investigate or prosecute any alcohol or drug abuse patient.[facility] HospitalIn the event this information is protected by the Federal Confidentiality of Alcohol and Drug Abuse Patient Records regulations: The Federal rules restrict any use of the information to criminally investigate or prosecute any alcohol or drug abuse patient.[facility] HospitalIn the event this information is protected by the Federal Confidentiality of Alcohol and Drug Abuse Patient Records regulations: The Federal rules restrict any use of the information to criminally investigate or prosecute any alcohol or drug abuse patient.[facility] HospitalIn the event this information is protected by the Federal Confidentiality of Alcohol and Drug Abuse Patient Records regulations: The Federal rules restrict any use of the information to criminally investigate or prosecute any alcohol or drug abuse patient.[facility] HospitalIn the event this information is protected by the Federal Confidentiality of Alcohol and Drug Abuse Patient Records regulations: The Federal rules restrict any use of the information to criminally investigate or prosecute any alcohol or drug abuse patient.[facility] HospitalIn the event this information is protected by the Federal Confidentiality of Alcohol and Drug Abuse Patient Records regulations: The Federal rules restrict any use of the information to criminally investigate or prosecute any alcohol or drug abuse patient.[facility] HospitalIn the event this information is protected by the Federal Confidentiality of Alcohol and Drug Abuse Patient Records regulations: The Federal rules restrict any use of the information to criminally investigate or prosecute any alcohol or drug abuse patient.[facility] HospitalIn the event this information is protected by the Federal Confidentiality of Alcohol and Drug Abuse Patient Records regulations: The Federal rules restrict any use of the information to criminally investigate or prosecute any alcohol or drug abuse patient.[facility] HospitalIn the event this information is protected by the Federal Confidentiality of Alcohol and Drug Abuse Patient Records regulations: The Federal rules restrict any use of the information to criminally investigate or prosecute any alcohol or drug abuse patient.[facility] Reason for Visit (unrecogniz ed section [...] 12 LDS W/I&R Danny Cristina DO [address] [facility] [address] [place] [address] [facility] [place] [address] [place] [address] Referral ID Status Reason Start Date Expiration Date V isits Requested Visits Authorized [id number] Closed Auto-Generate d Referral 11/07/2021 11/07/2022 1 [...] Care Teams (unrecognized sec tion and content) Intake Rn Relationship Specialty Start Date End Date Pcp, No PCP - General 10/27/21 Intake Rn Relationship Specialty Start Date End Date Pcp, No PCP - General 10/27/21 Intake Rn Relationship Specialty Start Date End Date Pcp, No PCP - General 10/27/21 Intake Rn Relationship Specialty Start Date End Date Marco A Byrd MD [address] [place] [facility] [place] [address] PCP - General Family Practice 11/26/21 Intake Rn Relationship Specialty Start Date End Date Marco A Byrd MD [address] [place] [facility] [address] PCP - General Family Practice 11/26/21 Intake Rn Relationship Specialty Start Date End Date Marco A Byrd MD [address] [place] [facility] [address] PCP - General Family Practice 11/26/21 Intake Rn Relationship Specialty Start Date End Date Marco A Byrd MD [address] [place] [facility] [place] [address] PCP - General Family Practice 11/26/21 Intake Rn Relationship Specialty Start Date End Date Marco A Byrd MD [address] [place] [facility] [place] [address] PCP - General Family Practice 11/26/21 Intake Rn Relationship Specialty Start Date End Date Marco A Byrd MD [address] [place] [facility] [address] PCP - General Family Practice 11/26/21 Intake Rn Relationship Specialty Start Date End Date Marco A Byrd MD [address] [place] [facility] [place] [address] PCP - General Family Practice 11/26/21 Team Status: Inactive Member Role Status Dates PHYSICIAN NO FAMILY Primary Care Provider Active Danis Tubbs DO [facility] Attending Provider Active Team Status: Active Member Role Status Dates PHYSICIAN NO FAMILY Primary Care Provider Active Intake Rn Relationship Specialty Start Date End Date Marco A Byrd MD [address] [place] [facility] [place] [address] PCP - General Family Medicine 11/26/21 Intake Rn Relationship Specialty Start Date End Date Marco A Byrd MD [address] [place] [facility] [place] [address] PCP - General Family Medicine 11/26/21 Intake Rn Relationship Specialty Start Date End Date Marco A Byrd MD [address] [place] [facility] [place] [address] PCP - General Family Medicine 11/26/21 Intake Rn Relationship Specialty Start Date End Date Marco A Byrd MD [address] [place] [facility] [place] [address] PCP - General Family Medicine 11/26/21 Intake Rn Relationship Specialty Start Date End Date Marco A Byrd MD [address] [place] [facility] [address] PCP - General Family Medicine 11/26/21 Intake Rn Relationship Specialty Start Date End Date Marco A Byrd MD [address] [place] [facility] [place] [address] PCP - General Family Medicine 11/26/21 Intake Rn Relationship Specialty Start Date End Date Marco A Byrd MD [address] [place] [facility] [place] [address] PCP - General Family Medicine 11/26/21 Intake Rn Relationship Specialty Start Date End Date Marco A Byrd MD [address] [place] [facility] [place] [address] PCP - General Family Medicine 11/26/21 Goals [...] BE BASED ON THE PRIMARY CLINICAL RECORDS. [facility] [facility]. provides no warranty or guarantee of the accuracy or completeness of information in this document.
--- NOTE | 2023-11-28 22:43 | ED.FEVER1 ---
HPI - Fever General Chief Complaint: Fever Stated Complaint: Fever, 8wks Time Seen by Provider: 11/28/23 22:22 Source: patient Mode of arrival: walk-in History of Present Illness HPI Narrative: 8 weeks . sunburn yesterday and also had a headache. Tonight she felt warm and temp was 100.5 at home. No cough or respiratory symptoms. No urinary symptoms. Wanted to get checked because she is Related Data Allergies Allergy/AdvReac Type Severity Reaction Status Date / Time No Known Drug Allergies Allergy Verified 11/28/23 22:19 Review of Systems ROS Status of ROS 10 or more systems reviewed and unremarkable except as noted in history and below Exam Constitutional Vital Signs, click to edit/add: Last Vital Signs Temp 101.3 F H 11/29/23 00:00 Pulse 85 11/29/23 00:00 Resp 16 11/29/23 00:00 BP 111/61 11/29/23 00:00 Pulse Ox 97 11/29/23 00:00 O2 Del Method Room Air 11/29/23 00:00 Common normals: no apparent distress, average body habitus, oriented x3, no limitations, healthy appearing, alert and well nourished [facility] Common normals: normocephalic and head/scalp atraumatic Eye Common normals: PERRL, EOMs intact bilaterally and conjunctivae normal Respiratory Common normals: normal respiratory effort, no retractions, no use of accessory muscles and clear to auscultation bilaterally Cardio Common normals: regular rate, regular rhythm, S1 normal heart sound and S2 normal heart sound GI Common normals: Normal to inspection, nondistended, normoactive bowel sounds present, soft to palpation and non-tender Extremity Common normals: normal to inspection and full ROM Neuro Common normals: oriented x3, CN's II-XII intact bilaterally, moves all extremities and no focal motor deficits Psych Appearance: grossly normal Course Vital Signs Vital signs: Vital Signs Temperature 99.0 F 11/28/23 22:14 Pulse Rate 93 H 11/28/23 22:14 Respiratory Rate 18 11/28/23 22:14 Blood Pressure 121/71 11/28/23 22:14 Pulse Oximetry 100 11/28/23 22:14 Oxygen Delivery Method Room Air 11/28/23 22:14 Temperature 101.3 F H 11/29/23 00:00 Pulse Rate 85 11/29/23 00:00 Respiratory Rate 16 11/29/23 00:00 Blood Pressure 111/61 11/29/23 00:00 Pulse Oximetry 97 11/29/23 00:00 Oxygen Delivery Method Room Air 11/29/23 00:00 MDM - Fever MDM Narrative Medical decision making narrative: patient 8 weeks . presents with low grade fever. No urinary symptoms. No URI symptoms. was out in the heat a couple of days ago and got sun burn. labs with mild elevation of LFTs. UA not infected. WBC low as can be seen in viral illness. advised to drink plenty of fluids. Was hydrated in the department. Educated on the importance of close follow up Lab Data Labs: Lab Results 11/28/23 11/28/23 Range/Units 22:57 23:22 WBC 2.9 L (4.0-11.0) 10^3/uL RBC 4.09 L (4.20-5.40) 10^6/uL Hgb 12.3 (12.0-16.0) g/dL Hct 36.6 (36.0-48.0) % MCV 89.5 (81.0-99.0) fL MCH 30.1 (26.7-34.0) pg MCHC 33.6 (29.9-35.2) g/dL RDW 12.3 (11.0-15.0) % Plt Count 113 L (150-450) 10^3/uL MPV 10.7 (9.5-13.5) fL Neut % (Auto) 69.4 (43.0-75.0) % Lymph % (Auto) 20.4 L (20.5-60.0) % [place] % (Auto) 9.2 (1.7-12.0) % Eos % (Auto) 0.0 L (0.9-7.0) % Baso % (Auto) 0.7 (0.2-2.0) % Neut # (Auto) 2.0 (1.4-6.5) 10^3/uL Lymph # (Auto) 0.6 L (1.2-3.8) 10^3/uL [place] # (Auto) 0.3 (0.3-0.8) 10^3/uL Eos # (Auto) 0.0 (0.0-0.7) 10^3/uL Baso # (Auto) 0.0 (0.0-0.1) 10^3/uL Abs Immat Gran (auto) 0.01 (0.00-0.03) 10^3/uL Imm/Tot Granulo (auto) 0.3 (0.0-0.5) % Sodium 137 (136-145) mmol/L Potassium 3.6 (3.5-5.1) mmol/L Chloride 104 (98-107) mmol/L Carbon Dioxide 25.1 (21.0-32.0) mmol/L Anion Gap 11.5 BUN 9.0 (7.0-18.0) mg/dL Creatinine 0.65 (0.55-1.02) mg/dL Est GFR ( Amer) >60 (>=60) Est GFR (Non-Af Amer) >60 (>=60) BUN/Creatinine Ratio 13.8 Glucose 89 (74-106) mg/dL Calcium 8.4 L (8.5-10.1) mg/dL Total Bilirubin 0.5 (0.2-1.0) mg/dL AST 95 H (15-37) U/L ALT 83 H (14-59) U/L Alkaline Phosphatase 102 (46-116) U/L Total Protein 6.8 (6.4-8.2) g/dL Albumin 3.4 (3.4-5.0) g/dL Globulin 3.4 g/dL Albumin/Globulin Ratio 1.0 Urine Color Yellow (YELLOW) Urine Clarity Clear (CLEAR) Urine pH 7.0 (5.0-9.0) Ur Specific [place] 1.020 (1.005-1.025) Urine Protein Trace (NEG/TRACE) mg/dL Urine Glucose (UA) Negative (NEGATIVE) mg/dL Urine Ketones Negative (NEGATIVE) mg/dL Urine Occult Blood Negative (NEGATIVE) Urine Nitrite Negative (NEGATIVE) Urine Bilirubin Negative (NEGATIVE) Urine Urobilinogen 4.0 A (0.2-1.0) EU/dL Ur Leukocyte Esterase Negative (NEGATIVE) Discharge Plan Discharge Stand Alone Forms: Portal Instructions Chief Complaint: Fever Clinical Impression: Fever Patient Disposition: Home, Self-Care Print Language: Angolan Instructions: Fever in Adults (ED) Additional Instructions: follow up with your doctor guzmanorrow for recheck or return to ER for recheck Referrals: Physician,Non-Staff, MD [Primary Care Provider] - 1 week
[2023-11-28 23:07] LABS: Basophils Percent Auto 0.7 % (0.2-2.0); Hematocrit 36.6 % (36.0-48.0); Hemoglobin 12.3 g/dL (12.0-16.0); Immature Granulocytes Abs Auto 0.01 10^3/uL (0.00-0.03); Immature Granulocytes Pct Auto 0.3 % (0.0-0.5); Lymphocytes Absolute Auto 0.6 10^3/uL (1.2-3.8); Lymphocytes Percent Auto 20.4 % (20.5-60.0); Mean Corpuscular HGB Conc 33.6 g/dL (29.9-35.2); Mean Corpuscular Hemoglobin 30.1 pg (26.7-34.0); Mean Corpuscular Volume 89.5 fL (81.0-99.0); Mean Platelet Volume 10.7 fL (9.5-13.5); Monocytes Absolute Auto 0.3 10^3/uL (0.3-0.8); Monocytes Percent Auto 9.2 % (1.7-12.0); Neutrophils Percent Auto 69.4 % (43.0-75.0); Platelet Count 113 10^3/uL (150-450); Red Blood Count 4.09 10^6/uL (4.20-5.40); Red Cell Distribution Width 12.3 % (11.0-15.0); White Blood Count 2.9 10^3/uL (4.0-11.0)
[2023-11-28 23:21] LABS: Alanine Aminotransferase 83 U/L (14-59); Albumin Level 3.4 g/dL (3.4-5.0); Alkaline Phosphatase 102 U/L (46-116); Anion Gap 11.5; Aspartate Amino Transferase 95 U/L (15-37); BUN Creatinine Ratio 13.8; Bilirubin Total 0.5 mg/dL (0.2-1.0); Calcium 8.4 mg/dL (8.5-10.1); Carbon Dioxide 25.1 mmol/L (21.0-32.0); Chloride 104 mmol/L (98-107); Estimated GFR (African America >60 (>=60); Estimated GFR (Non-African Ame >60 (>=60); Globulin 3.4 g/dL; Glucose 89 mg/dL (74-106); Potassium 3.6 mmol/L (3.5-5.1); Sodium 137 mmol/L (136-145); Total Protein 6.8 g/dL (6.4-8.2)
[2023-11-28 23:41] LABS: Bilirubin Urine NEGATIVE (NEGATIVE); Blood Urine NEGATIVE (NEGATIVE); Clarity Urine CLEAR (CLEAR); Color Urine YELLOW (YELLOW); Glucose Urine UA NEGATIVE (NEGATIVE); Ketones Urine NEGATIVE (NEGATIVE); Leukocyte Esterase Urine NEGATIVE (NEGATIVE); Nitrite Urine NEGATIVE (NEGATIVE); Protein Urine TRACE mg/dL (NEG/TRACE)
[2023-11-28 23:52] LABS: Urine Microscopic Indicated NO
[2023-11-29] VITALS: BP 111/61; PULSE 85; TEMP 38.5; O2SAT 97
[2023-11-29] MEDS: ACETAMINOPHEN 500 MG TABLET 1000 MG PO (00:14)
[2023-11-29] MEDS: 0.9 % SODIUM CHLORIDE 1,000 ML 1000 ML IV (00:14)
[2023-11-29 01:05] VITALS: BP 92/63; PULSE 88; TEMP 37.6; O2SAT 96
== END 2023-11-29 01:09 | disposition home or self-care (01) ==
PROVIDERS: Emergency Provider Internal Medicine
DX: O26.891 Other specified pregnancy related conditions, first trimester (principal); R50.9 Fever, unspecified; Z3A.08 8 weeks gestation of pregnancy
CPT/HCPCS: 36415; 80053; 81003; 85025; 99284

== ENCOUNTER 2023-12-06 12:00 | Outpatient (OUT) | payer OTHER, SELFPAY ==
--- NOTE | 2023-12-06 12:04 | US_ITS ---
The [address] [address] Patient Name: TAWANNA SANTOS MRN: [id number] date: 1990 Sex: F Assigned Patient Location: US Current Patient Location: US Accession/Order Number: [id number] Exam Date: 12/06/2023 12:04 Report Date: 12/06/2023 14:03 At the request of: EAGLE PEÑA Procedure: US OB transvaginal EXAMINATION: US OB transvaginal HISTORY: VIABILITY COMPARISON: Ultrasound OB transvaginal 11/25/2023 FINDINGS: GESTATIONAL SAC: Present YOLK SAC: Present POLE: Present CARDIAC: Absent UTERUS: Normal size and appearance. OVARIES: Right: Normal. Left: Normal. CERVIX: 5.0 cm in length and closed. CUL-DE-SAC: Normal. OTHER: None. AGE BY LMP: 9 weeks 2 days [place] BY LMP: 07/08/2024 AGE BY US CRL: 8 weeks 3 days [place] BY US CRL: 07/14/2024 US/US OB transvaginal IMPRESSION: 1. No detectable heartbeat within the early intrauterine . Dr. Peña was notified of these findings by the straightener at time of imaging. Electronically authenticated by: NALLELY PABLO Date: 12/06/2023 14:03
--- OUTSIDE RECORDS SUMMARY | 2023-12-06 12:06 | XMS_ITS ---
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 commands Best Verbal Response: (V5) oriented Princeton Score: 15 Princeton Assessment Qualifiers: patient not sedated/intubated Allergies: no [...] Updated: 08-Feb-2022 14:00 by Gertrudis Alberts (WILL) [facility] SARS-CoV-2 (COVID-19) RNA JONH+probe Ql (Unsp spec) Not detected Normal NOT DETECTED [facility] Comment on above: Result Comment: This test is not yet approved or cleared by the [place] FDA. When there are no FDA-approved or cleared tests available, and other criteria are met, FDA can make tests available under an emergency access mechanism called an Emergency Use Authorization (EUA). The EUA for this test is supported by the [employer] of Health and Human Service's (HHS's) declaration [...] consistent with SARS-CoV-2. Performed By: #### C [facility] #### [facility] [address] [place] [address] Dr. Kerri Roberto Body fluid albumin measureme nt (mass/volume)Ordered By: Danis Tubbs on 01-05-2022 Albumin (Body fld) [Mass/Vol] 4.2 g/dL 3.2-5.5 [facility] Cholesterol in LDL Calc [Mas s/Vol]Ordered By: Danis Tubbs on 01-05-2022 Cholesterol in LDL [Mass/Vol] 140 mg/dL 0-100 [facility] Comment on above: LDL ATP III CLASSIFI CATION LDL less than 100 mg/dL Optimal LDL 100-129 mg/dL Near or above optimal LDL 130-159 mg/dL Borderline high LDL 160-189 mg/dL High LDL greater than 189 mg/dL Very high Cholesterol in VLDL Calc [Ma ss/Vol]Ordered By: Danis Tubbs on 01-05-2022 Cholesterol in VLDL [Mass/Vol] 33 mg/dL [facility] Complete Blood Count no refl exOrdered By: Danis Tubbs on 01-05-2022 Basophils (Bld) [#/Vol] 0.0 10*3/uL Normal 0.0-0.2 [facility] Comment on above: Result Comment: PERF ORMED BY: [place] [address] PATHOLOGIST BUDGET ASSISTANT KARLOS WALKER M.D. Performed By: #### L IPID, CMP, CHC CBC, TSH3 #### [facility] [address] Basophils/100 WBC (Bld) 0.8 % Normal . [facility] Comment on above: Performed By: #### L IPID, CMP, CHC CBC, TSH3 #### [facility] [address] [place] [address] Eosinophils (Bld) [#/Vol] 0.1 10*3/uL Normal 0.0-0.45 [facility] Comment on above: Performed By: #### L IPID, CMP, CHC CBC, TSH3 #### [address] Eosinophils/100 WBC (Bld) 2.2 % Normal . [facility] Comment on above: Performed By: #### L IPID, CMP, CHC CBC, TSH3 #### [address] Erythrocyte distribution width (RBC) [Ratio] 13.0 % Normal 11.9-15.3 [facility] Comment on above: Performed By: #### L IPID, CMP, CHC CBC, TSH3 #### [facility] [address] [place] [address] Hematocrit (Bld) [Volume fraction] 41.9 % Normal 34.0-46.4 [facility] Comment on above: Performed By: #### L IPID, CMP, CHC CBC, TSH3 #### [place] [address] [place] Hemoglobin (Bld) [Mass/Vol] 14.3 g/dL Normal 11.8-15.4 [facility] Comment on above: Performed By: #### L IPID, CMP, CHC CBC, TSH3 #### [address] Lymphocytes (Bld) [#/Vol] 2.4 10*3/uL Normal 1.00-4.8 [facility] Comment on above: Performed By: #### L IPID, CMP, CHC CBC, TSH3 #### [address] Lymphocytes/100 WBC (Bld) 47.4 % Normal . [facility] Comment on above: Performed By: #### L IPID, CMP, CHC CBC, TSH3 #### [address] MCH (RBC) [Entitic mass] 30.1 pg Normal 24.7-34.3 [facility] Comment on above: Performed By: #### L IPID, CMP, CHC CBC, TSH3 #### [address] MCV (RBC) [Entitic vol] 88.3 fL Normal 80-100 [facility] Comment on above: Performed By: #### L IPID, CMP, CHC CBC, TSH3 #### [address] Monocytes (Bld) [#/Vol] 0.3 10*3/uL Normal 0.0-0.8 [facility] Comment on above: Performed By: #### L IPID, CMP, CHC CBC, TSH3 #### [address] Monocytes/100 WBC (Bld) 6.6 % Normal . [facility] Comment on above: Performed By: #### L IPID, CMP, CHC CBC, TSH3 #### [address] Neutrophils (Bld) [#/Vol] 2.2 10*3/uL Normal 1.8-7.7 [facility] Comment on above: Performed By: #### L IPID, CMP, CHC CBC, TSH3 #### [address] [place] [address] [place] Neutrophils/100 WBC (Bld) 43.0 % Normal . [facility] Comment on above: Performed By: #### L IPID, CMP, CHC CBC, TSH3 #### [facility] [address] Nucleated RBC/100 WBC (Bld) [Ratio] 0.1 % Normal 0-0.5 [facility] Comment on above: Performed By: #### L IPID, CMP, CHC CBC, TSH3 #### [address] Platelet mean volume (Bld) [Entitic vol] 9.0 fL Normal 6.3-10.7 [facility] Comment on above: Performed By: #### L IPID, CMP, CHC CBC, TSH3 #### [address] Platelets (Bld) [#/Vol] 207 10*3/uL Normal 150-450 [facility] Comment on above: Performed By: #### L IPID, CMP, CHC CBC, TSH3 #### [address] RBC (Bld) [#/Vol] 4.75 10*6/uL Normal 3.60-5.00 [facility] Comment on above: Performed By: #### L IPID, CMP, CHC CBC, TSH3 #### [address] WBC (Bld) [#/Vol] 5.1 10*3/uL Normal 4.5-11.0 [facility] Comment on above: Performed By: #### L IPID, CMP, CHC CBC, TSH3 #### [address] Complete Blood Count no refl exon 01-05-2022 Mean Corpuscular HGB Conc 34.0 g/dL Normal 32.0-35.0 [facility] Comment on above: Performed By: #### L IPID, CMP, CHC CBC, TSH3 #### [facility] [address] Comprehensive Metabolic Pane barbara 01-05-2022 Albumin [Mass/Vol] 4.2 g/dL Normal 3.2-5.5 [facility] Comment on above: Performed By: #### L IPID, CMP, CHC CBC, TSH3 #### [facility] [address] ALT [Catalytic activity/Vol] 32 U/L Normal 10-60 [facility] Comment on above: Performed By: #### L IPID, CMP, CHC CBC, TSH3 #### [address] Estimated GFR ( Mariah > 60 [facility] Comment on above: Result Comment: GFR estimated reference range: According to KDOQI guidelines, <60 ml/min/1.73m2 is sufficient to diagnose a patient with chronic kidney disease. Performed By: #### L IPID, CMP, CHC CBC, TSH3 #### [address] Estimated GFR (Non- Am > 60 [facility] Comment on above: Performed By: #### L IPID, CMP, CHC CBC, TSH3 #### [address] Comprehensive Metabolic Pane lOrdered By: Danis Tubbs on 01-05-2022 Albumin/Globulin [Mass ratio] 1.6 {ratio} [facility] Comment on above: Performed By: #### L IPID, CMP, CHC CBC, TSH3 #### [address] ALP [Catalytic activity/Vol] 36 U/L Normal 32-92 [facility] Comment on above: Performed By: #### L IPID, CMP, CHC CBC, TSH3 #### [facility] [address] [place] [address] AST [Catalytic activity/Vol] 22 U/L Normal 10-42 [facility] Comment on above: Performed By: #### L IPID, CMP, CHC CBC, TSH3 #### [facility] [address] Bilirubin [Mass/Vol] 0.3 mg/dL Normal 0.3-1.2 [facility] Comment on above: Performed By: #### L IPID, CMP, CHC CBC, TSH3 #### [facility] [address] Calcium [Mass/Vol] 9.4 mg/dL Normal 8.2-10.2 [facility] Comment on above: Performed By: #### L IPID, CMP, CHC CBC, TSH3 #### [facility] [address] Chloride [Moles/Vol] 103 mmol/L Normal 95-114 [facility] Comment on above: Performed By: #### L IPID, CMP, CHC CBC, TSH3 #### [facility] [address] CO2 [Moles/Vol] 23.0 mmol/L Normal 22.0-30.0 [facility] Comment on above: Performed By: #### L IPID, CMP, CHC CBC, TSH3 #### [facility] [address] Creatinine [Mass/Vol] 0.61 mg/dL Normal 0.44-1.03 [facility] Comment on above: Performed By: #### L IPID, CMP, CHC CBC, TSH3 #### [facility] [address] Globulin (S) [Mass/Vol] 2.7 g/dL Normal [facility] Comment on above: Performed By: #### L IPID, CMP, CHC CBC, TSH3 #### [facility] [address] [place] [address] [place] Glucose [Mass/Vol] 108 mg/dL High 70-100 [facility] Comment on above: Result Comment: [place] Glucose Reference Range is dependent on time and content of last meal. Glucose of more than 200 mg/dL in a nonstressed, ambulatory subject supports the diagnosis of Diabetes Mellitus. ADA recommended reference range Performed By: #### L IPID, CMP, CHC CBC, TSH3 #### [facility] [address] ADA recommended refe rence range Random Glucose Reference Range is dependent on time and content of last meal. Glucose of more than 200 mg/dL in a nonstressed, ambulatory subject supports the diagnosis of Diabetes Mellitus. Potassium [Moles/Vol] 4.1 mmol/L Normal 3.5-5.1 [facility] Comment on above: Performed By: #### L IPID, CMP, CHC CBC, TSH3 #### [facility] [address] Protein [Mass/Vol] 6.9 g/dL Normal 6.1-7.9 [facility] Comment on above: Performed By: #### L IPID, CMP, CHC CBC, TSH3 #### [facility] [address] Sodium [Moles/Vol] 136 mmol/L Normal 136-146 [facility] Comment on above: Performed By: #### L IPID, CMP, CHC CBC, TSH3 #### [facility] [address] Urea nitrogen [Mass/Vol] 12 mg/dL Normal 9-23 [facility] Comment on above: Performed By: #### L IPID, CMP, CHC CBC, TSH3 #### [facility] [address] Estimated glomerular filtrat ion rate (GFR) non- AmericanOrdered By: Danis Tubbs on 01-05-2022 GFR/1.73 sq M.predicted among non-blacks MDRD (S/P/Bld) [Vol rate/Area] > 60 mL/Min [facility] Lipid PanelOrdered By: Danis Tubbs on 01-05-2022 Cholesterol [Mass/Vol] 210 mg/dL High 140-200 [facility] Comment on above: Result Comment: Chol less than 200 mg/dl low risk Chol 201-239 mg/dl borderline risk Chol 240 mg/dl and greater high risk Performed By: #### L IPID, CMP, CHC CBC, TSH3 #### [facility] [address] Chol less than 200 m g/dl low risk Chol 201-239 mg/dl borderline risk Chol 240 mg/dl and greater high risk Cholesterol in HDL [Mass/Vol] 37 mg/dL Normal 35-85 [facility] Comment on above: Result Comment: HDL CHOL ATP-III CLASSIFICATION Cardiovascular Risk HDL > or equal to 60 mg/dL LOW HDL < 40 mg/dL HIGH Performed By: #### L IPID, CMP, CHC CBC, TSH3 #### [facility] [address] HDL CHOL ATP-III CLA SSIFICATION Cardiovascular Risk HDL > or equal to 60 mg/dL LOW HDL < 40 mg/dL HIGH Cholesterol.total/Tia sterol in HDL [Mass ratio] 5.7 {ratio} Normal <5.0 [facility] Comment on above: Performed By: #### L IPID, CMP, [facility] CBC, TSH3 #### [address] Lipid Panelon 01-05-2022 LDL Cholesterol,Calculated 140 mg/dL High 0-100 [facility] Comment on above: Result Comment: LDL ATP III CLASSIFICATION LDL less than 100 mg/dL Optimal LDL 100-129 mg/dL Near or above optimal LDL 130-159 mg/dL Borderline high LDL 160-189 mg/dL High LDL greater than 189 mg/dL Very high Performed By: #### L IPID, CMP, [facility] CBC, TSH3 #### [address] Triglyceride w/Reflex 165 mg/dL High 35-149 [facility] Comment on above: Result Comment: TRIG ATP III CLASSIFICATION TRIG less than 150 mg/dL Normal TRIG 150-199 mg/dL Borderline high TRIG 200-500 mg/dL High TRIG greater than 500 mg/dL Very high Standard traceable to the Center for Disease Conrtrol and Prevention (CDC) test method. Performed By: #### L IPID, CMP, CHC CBC, TSH3 #### [facility] [address] VLDL CHOLESTEROL 33 mg/dL Normal [facility] Comment on above: Performed By: #### L IPID, CMP, [facility] CBC, TSH3 #### [facility] [address] MCHC Auto (RBC) [Mass/Vol]Or dered By: Danis Tubbs on 01-05-2022 MCHC (RBC) [Mass/Vol] 34.0 g/dL 32.0-35.0 [facility] No Panel InformationOrdered By: Danis Tubbs on 01-05-2022 Estimated GFR () > 60 mL/Min [facility] Comment on above: GFR estimated refere nce range: According to KDOQI guidelines, <60 ml/min/1.73m2 is sufficient to diagnose a patient with chronic kidney disease. Pharmacy Creatinine Clearance (Chem N/A [facility] Serum or plasma alanine woodruff otransferase measurement without P-5'-P (enzymatic activiOrdered By: Danis Tubbs on 01-05-2022 ALT No additional P-5'-P [Catalytic activity/Vol] 32 U/L 10-60 [facility] Thyroid Stimulating HormoneO rdered By: Danis Tubbs on 01-05-2022 TSH Qn 3.27 m[IU]/L Normal 0.45-5.33 [facility] Comment on above: Result Comment: PERF ORMED BY: [place] [address] PATHOLOGIST BUDGET ASSISTANT KARLOS WALKER M.D. Performed By: #### L IPID, CMP, [facility] CBC, TSH3 #### [facility] [address] Triglyceride [Mass/volume] i n Serum or PlasmaOrdered By: Danis Tubbs on 01-05-2022 Triglyceride [Mass/Vol] 165 mg/dL 35-149 [facility] Comment on above: TRIG ATP III CLASSIF ICATION TRIG less than 150 mg/dL Normal TRIG 150-199 mg/dL Borderline high TRIG 200-500 mg/dL High TRIG greater than 500 mg/dL Very high Standard traceable to the Center for Disease Conrtrol and Prevention (CDC) test method. 25(OH)D3 SerPl-mCncon 06-27- 2022 25-hydroxyvitamin D3 [Mass/Vol] 16.7 ng/mL Low 31.0-80.0 [facility] Comment on above: Order Comment: Speci men Type: BLOOD SPECIMEN Ordering Facility: [facility] Address: [address] [place] [address] Result Comment: Clas sification of 25 [place] Vitamin D status: Deficiency/Insufficiency: < or = 30 ng/ml. Sufficiency/Optimal Levels: 31-80 ng/mL Toxicity: > 100 ng/mL. Test performed by chemiluminescent immunoassay. Performed By: #### 1 989-3 #### [facility] CLIA [id number] [address] [place] [address] CBC W Auto Differential pane l (Bld)on 12-01-2021 Basophils (Bld) [#/Vol] 0.07 10*3/uL Normal <0.11 [facility] Comment on above: Order Comment: Speci men Type: BLOOD SPECIMEN Ordering Facility: [facility] Address: [address] [place], [place] [address] Performed By: #### 5 7021-8 #### [facility] CLIA [id number] [place] Basophils/100 WBC (Bld) 1.3 % Normal [facility] Comment on above: Order Comment: Speci men Type: BLOOD SPECIMEN Ordering Facility: [facility] Address: [address] [place], [place] [address] Performed By: #### 5 7021-8 #### [facility] CLIA [id number] [place] Differential cell count method Nom (Bld) Auto Normal [facility] Comment on above: Order Comment: Speci men Type: BLOOD SPECIMEN Ordering Facility: [facility] Address: [address] [place] [address] Performed By: #### 5 7021-8 #### [facility] CLIA [id number] [place] [address] [place] Eosinophils (Bld) [#/Vol] 0.10 10*3/uL Normal <0.46 [facility] Comment on above: Order Comment: Speci men Type: BLOOD SPECIMEN Ordering Facility: [facility] Address: [address] [place] [address] Performed By: #### 5 7021-8 #### [facility] CLIA [id number] [address] [place] [address] [place] Eosinophils/100 WBC (Bld) 1.9 % Normal [facility] Comment on above: Order Comment: Speci men Type: BLOOD SPECIMEN Ordering Facility: [facility] Address: [address] [place], [place] [address] Performed By: #### 5 7021-8 #### [facility] CLIA [id number] [place] Erythrocyte distribution width (RBC) [Ratio] 12.3 % Normal 11.5-15.0 [facility] Comment on above: Order Comment: Speci men Type: BLOOD SPECIMEN Ordering Facility: [facility] Address: [address] [place], [place] [address] Performed By: #### 5 7021-8 #### [facility] CLIA [id number] [address] [place] [address] [place] Hematocrit (Bld) [Volume fraction] 44.0 % Normal 36.0-46.0 [facility] Comment on above: Order Comment: Speci men Type: BLOOD SPECIMEN Ordering Facility: [facility] Address: [address] [place], [place] [address] Performed By: #### 5 7021-8 #### [facility] CLIA [id number] [address] [place] [address] [place] Hemoglobin (Bld) [Mass/Vol] 14.3 g/dL Normal 11.5-15.5 [facility] Comment on above: Order Comment: Speci men Type: BLOOD SPECIMEN Ordering Facility: [facility] Address: [address] [place], [place] [address] Performed By: #### 5 7021-8 #### [facility] [place] [id number] [address] [place] [address] [place] IMMATURE GRAN % 0.6 % Normal [facility] Comment on above: Order Comment: Speci men Type: BLOOD SPECIMEN Ordering Facility: [facility] Address: [address] [place] [address] Performed By: #### 5 7021-8 #### [facility] [place] [id number] [place] [address] [place] IMMATURE GRAN ABS 0.03 k/uL Normal <0.10 [facility] Comment on above: Order Comment: Speci men Type: BLOOD SPECIMEN Ordering Facility: [facility] Address: [address] [place] [address] Performed By: #### 5 7021-8 #### [facility] [id number] [address] [place] [address] [place] Lymphocytes (Bld) [#/Vol] 2.30 10*3/uL Normal 1.00-4.00 [facility] Comment on above: Order Comment: Speci men Type: BLOOD SPECIMEN Ordering Facility: [facility] Address: [address] [place] [address] Performed By: #### 5 7021-8 #### [facility] [id number] [address] [place] [address] [place] Lymphocytes/100 WBC (Bld) 43.3 % Normal [facility] Comment on above: Order Comment: Speci men Type: BLOOD SPECIMEN Ordering Facility: [facility] Address: [address] [place] [address] Performed By: #### 5 7021-8 #### [facility] [id number] [address] [place] [address] [place] MCH (RBC) [Entitic mass] 29.9 pg Normal 26.0-34.0 [facility] Comment on above: Order Comment: Speci men Type: BLOOD SPECIMEN Ordering Facility: [facility] Address: [address] Performed By: #### 5 7021-8 #### [facility] IA [id number] [address] [place] [address] [place] MCHC (RBC) [Mass/Vol] 32.5 g/dL Normal 30.5-36.0 [facility] Comment on above: Order Comment: Speci men Type: BLOOD SPECIMEN Ordering Facility: [facility] Address: [address] [place], [place] [address] Performed By: #### 5 7021-8 #### [facility] IA [id number] [address] [place] [address] [place] MCV (RBC) [Entitic vol] 91.9 fL Normal 80.0-100.0 [facility] Comment on above: Order Comment: Speci men Type: BLOOD SPECIMEN Ordering Facility: [facility] Address: [address] [place], [place] [address] Performed By: #### 5 7021-8 #### [facility] IA [id number] [address] [place] [address] [place] Monocytes (Bld) [#/Vol] 0.29 10*3/uL Normal <0.87 [facility] Comment on above: Order Comment: Speci men Type: BLOOD SPECIMEN Ordering Facility: [facility] Address: [address] [place], [place] [address] Performed By: #### 5 7021-8 #### [facility] [place] [id number] [place] [address] [place] Monocytes/100 WBC (Bld) 5.5 % Normal [facility] Comment on above: Order Comment: Speci men Type: BLOOD SPECIMEN Ordering Facility: [facility] Address: [address] [place], [place] [address] Performed By: #### 5 7021-8 #### [facility] [place] [id number] [address] [place] [address] [place] Neutrophils (Bld) [#/Vol] 2.52 10*3/uL Normal 1.45-7.50 [facility] Comment on above: Order Comment: Speci men Type: BLOOD SPECIMEN Ordering Facility: [facility] Address: [address] Performed By: #### 5 7021-8 #### [facility] CLIA [id number] [place] [address] [place] Neutrophils/100 WBC (Bld) 47.4 % Normal [facility] Comment on above: Order Comment: Speci men Type: BLOOD SPECIMEN Ordering Facility: [facility] Address: [address] [place], [place] [address] Performed By: #### 5 7021-8 #### [facility] IA [id number] [address] [place] [address] [place] Nucleated RBC (Bld) [#/Vol] 10*3/uL Normal <0.01 [facility] Comment on above: Order Comment: Speci men Type: BLOOD SPECIMEN Ordering Facility: [facility] Address: [address] [place], [place] [address] Performed By: #### 5 7021-8 #### [facility] IA [id number] [address] [place] [address] [place] Nucleated RBC/100 WBC (Bld) [Ratio] 0.0 /100 WBC Normal [facility] Comment on above: Order Comment: Speci men Type: BLOOD SPECIMEN Ordering Facility: [facility] Address: [address] [place], [place] [address] Performed By: #### 5 7021-8 #### [facility] IA [id number] [address] [place] [address] [place] Platelet mean volume (Bld) [Entitic vol] 11.2 fL Normal 9.0-12.7 [facility] Comment on above: Order Comment: Speci men Type: BLOOD SPECIMEN Ordering Facility: [facility] Address: [address] [place], [place] [address] Performed By: #### 5 7021-8 #### [facility] CLIA [id number] [address] [place] [address] [place] Platelets (Bld) [#/Vol] 168 10*3/uL Normal 150-400 [facility] Comment on above: Order Comment: Speci men Type: BLOOD SPECIMEN Ordering Facility: [facility] Address: [address] [place] [address] Result Comment: Resu lts checked and verified. No clot detected Performed By: #### 5 7021-8 #### [facility] CLIA [id number] [address] [place] [address] [place] RBC (Bld) [#/Vol] 4.79 10*6/uL Normal 3.90-5.20 [facility] Comment on above: Order Comment: Speci men Type: BLOOD SPECIMEN Ordering Facility: [facility] Address: [address] [place] [address] Performed By: #### 5 7021-8 #### [facility] CLIA [id number] [address] [place] WBC (Bld) [#/Vol] 5.31 10*3/uL Normal 3.70-11.00 [facility] Comment on above: Order Comment: Speci men Type: BLOOD SPECIMEN Ordering Facility: [facility] Address: [address] [place] [address] Performed By: #### 5 7021-8 #### [facility] CLIA [id number] [facility] [place] Comprehensive metabolic 2000 panelon 12-01-2021 Albumin [Mass/Vol] 4.5 g/dL Normal 3.9-4.9 [facility] Comment on above: Order Comment: Speci men Type: BLOOD SPECIMEN Ordering Facility: [facility] Address: [address] [place] [address] Performed By: #### 2 4323-8, 3016-3, 81709-8, 26300-8 #### [facility] CLIA [id number] [address] [place] [address] [place] ALP [Catalytic activity/Vol] 46 U/L Normal 34-123 [facility] Comment on above: Order Comment: Speci men Type: BLOOD SPECIMEN Ordering Facility: [facility] Address: [address] [place] [address] Performed By: #### 2 4323-8, 3016-3, 72861-7, 85015-5 #### [facility] CLIA [id number] [address] [place] [address] [place] ALT [Catalytic activity/Vol] 21 U/L Normal 7-38 [facility] Comment on above: Order Comment: Speci men Type: BLOOD SPECIMEN Ordering Facility: [facility] Address: [address] [place] [address] Performed By: #### 2 4323-8, 3016-3, 38848-3, 91597-5 #### [facility] CLIA [id number] [address] [place] [id number] [place] [address] STATES OF [facility] Anion gap [Moles/Vol] 10 mmol/L Normal 9-18 [facility] Comment on above: Order Comment: Speci men Type: BLOOD SPECIMEN Ordering Facility: [facility] Address: [address] [place] [address] Performed By: #### 2 4323-8, 3016-3, 88074-0, 15168-5 #### [facility] CLIA [id number] [address] [place], [place] [id number] [place] [address] [place] AST [Catalytic activity/Vol] 18 U/L Normal 13-35 [facility] Comment on above: Order Comment: Speci men Type: BLOOD SPECIMEN Ordering Facility: [facility] Address: [address] [place] [address] Performed By: #### 2 4323-8, 3016-3, 02771-1, 51514-6 #### [facility] CLIA [id number] [address] [place] [address] [place] Bilirubin [Mass/Vol] 0.3 mg/dL Normal 0.2-1.3 [facility] Comment on above: Order Comment: Speci men Type: BLOOD SPECIMEN Ordering Facility: [facility] Address: [address] [place] [address] Performed By: #### 2 4323-8, 3016-3, 22648-3, 32541-9 #### [facility] CLIA [id number] [address] [place] [address] [place] Calcium [Mass/Vol] 9.2 mg/dL Normal 8.5-10.2 [facility] Comment on above: Order Comment: Speci men Type: BLOOD SPECIMEN Ordering Facility: [facility] Address: [address] [place] [address] Performed By: #### 2 4323-8, 3016-3, 11666-3, 35887-7 #### [facility] CLIA [id number] [address] [place] [address] [place] Chloride [Moles/Vol] 104 mmol/L Normal 97-105 [facility] Comment on above: Order Comment: Speci men Type: BLOOD SPECIMEN Ordering Facility: [facility] Address: [address] [place] [address] Performed By: #### 2 4323-8, 3016-3, 02666-2, 64976-4 #### [facility] CLIA [id number] [address] [place] [address] [place] CO2 [Moles/Vol] 23 mmol/L Normal 22-30 [facility] Comment on above: Order Comment: Speci men Type: BLOOD SPECIMEN Ordering Facility: [facility] Address: [address] [place], [place] [address] Performed By: #### 2 4323-8, 3016-3, 38620-2, 20565-7 #### [facility] CLIA [id number] [address] [place] [address] [place] Creatinine [Mass/Vol] 0.57 mg/dL Low 0.58-0.96 [facility] Comment on above: Order Comment: Speci men Type: BLOOD SPECIMEN Ordering Facility: [facility] Address: [address] [place] [address] Performed By: #### 2 4323-8, 3016-3, 76834-5, 62465-8 #### [facility] CLIA [id number] [address] [place] [address] [place] ESTIMATED GLOMERULAR FILTRATION RATE 124 mL/min/1.73m??? Normal >=60 [facility] Comment on above: Order Comment: Rangel zamora Type: BLOOD SPECIMEN Ordering Facility: [facility] Address: [address] [place] [address] Result Comment: Aleksandra mated Glomerular Filtration Rate [...] GFR. Performed By: #### 2 4323-8, 3016-3, 82342-8, 42303-1 #### [facility] CLIA [id number] [address] [place] [address] [place] Glucose [Mass/Vol] 112 mg/dL High 74-99 [facility] Comment on above: Order Comment: Rangel noah Type: BLOOD SPECIMEN Ordering Facility: [facility] Address: [address] [place] [address] Result Comment: The [place] Diabetes Association (ADA) provides guidance for cutoff [...] Standards of Medical Care in Diabetes 2016, [place] Diabetes Association. Diabetes Care. 2016.39(Suppl 1). Performed By: #### 2 4323-8, 3016-3, 96792-2, 36300-0 #### [facility] CLIA [id number] [address] [place] [address] [place] Potassium [Moles/Vol] 4.5 mmol/L Normal 3.7-5.1 [facility] Comment on above: Order Comment: Speci men Type: BLOOD SPECIMEN Ordering Facility: [facility] Address: [address] [place] [address] Performed By: #### 2 4323-8, 3016-3, 31686-1, 20622-4 #### [facility] CLIA [id number] [address] [place] [address] [place] Protein [Mass/Vol] 7.4 g/dL Normal 6.3-8.0 [facility] Comment on above: Order Comment: Speci men Type: BLOOD SPECIMEN Ordering Facility: [facility] Address: [address] [place] [address] Performed By: #### 2 4323-8, 3016-3, 55042-1, 14501-5 #### [facility] CLIA [id number] [address] [place] [address] [place] Sodium [Moles/Vol] 137 mmol/L Normal 136-144 [facility] Comment on above: Order Comment: Speci men Type: BLOOD SPECIMEN Ordering Facility: [facility] Address: [address] [place], [place] [address] Performed By: #### 2 4323-8, 3016-3, 35751-2, 74654-3 #### [facility] CLIA [id number] [address] [place] [address] [place] Urea nitrogen [Mass/Vol] 12 mg/dL Normal 7-21 [facility] Comment on above: Order Comment: Speci men Type: BLOOD SPECIMEN Ordering Facility: [facility] Address: [address] [place] [address] Performed By: #### 2 4323-8, 3016-3, 13862-5, 68743-8 #### [facility] CLIA [id number] [address] [place] [address] [place] Ferritin SerPl-ncon 2021 Ferritin [Mass/Vol] 177.6 ng/mL Normal 14.7-205.1 [facility] Comment on above: Order Comment: Speci men Type: BLOOD SPECIMEN Ordering Facility: [facility] Address: [address] [place], [place] [phone] Performed By: #### 2 4323-8, 6-3, 18050-0, 42661-4 #### [facility] CLIA [id number] [address] [place] Folate SerPl-ncon 12-02-19 Folate [Mass/Vol] 9.3 ng/mL Normal >4.7 [facility] Comment on above: Order Comment: Speci men Type: BLOOD SPECIMEN Ordering Facility: [facility] Address: [address] [place], [place] [phone] Performed By: #### 2 4323-8, 6-3, 35802-4, 74892-5 #### [facility] CLIA [id number] [address] [place], [place] [id number] [place] [address] [place] HbA1c (Bld)on 12-01-2021 Average glucose Estimated from glycated hemoglobin (Bld) [Mass/Vol] 108 mg/dL Normal [facility] Comment on above: Order Comment: Speci [facility] Type: BLOOD SPECIMEN Ordering Facility: [facility] Address: [address] [place], [place] [address] Result Comment: eAG: (Estimated average glucose) is a calculated value from HgbA1c and is risk control field representative of the average blood glucose level in the last 2-3 month period. Performed By: #### 2 4323-8, 3016-3, 28030-4, 14433-0 #### [facility] CLIA [id number] [address] [place] [address] [place] HbA1c (Bld) [Mass fraction] 5.4 % Normal 4.3-5.6 [facility] Comment on above: Order Comment: Rangel zamora Type: BLOOD SPECIMEN Ordering Facility: [facility] Address: [address] [place], [place] [address] Result Comment: [place] Diabetes Association guidelines indicate that patients with HgbA1c in the range 5.7-6.4% are at increased risk for development of diabetes, and intervention by lifestyle modification may be beneficial. HgbA1c greater or equal to 6.5% is considered diagnostic of diabetes. Performed By: #### 2 4323-8, 3016-3, 16813-9, 39406-7 #### [facility] CLIA [id number] [address] [place] [address] [place] Iron and Iron binding capaci [facility] 12-01-2021 Iron [Mass/Vol] 69 ug/dL Normal 41-186 [facility] Comment on above: Order Comment: Rangel zamora Type: BLOOD SPECIMEN Ordering Facility: [facility] Address: [address] [place] [address] Performed By: #### 2 4323-8, 3016-3, 56373-0, 57798-3 #### [facility] CLIA [id number] [address] [place] [address] [place] [facility] Iron binding capacity [Mass/Vol] 296 ug/dL Normal 232-386 [facility] Comment on above: Order Comment: Rangel zamora Type: BLOOD SPECIMEN Ordering Facility: [facility] Address: [address] [place] [address] Performed By: #### 2 4323-8, 3016-3, 37550-9, 17125-0 #### [facility] CLIA [id number] [address] [place] [address] [facility] Iron/TIBC [Molar ratio] 23.3 % Normal 15.0-57.0 [facility] Comment on above: Order Comment: Rangel zamora Type: BLOOD SPECIMEN Ordering Facility: [facility] Address: [address] [place], [place] [address] Performed By: #### 2 4323-8, 3016-3, 72284-8, 43288-5 #### [facility] CLIA [id number] [address] [place] [address] [facility] [place] Lipid 1996 panelon 2 Cholesterol [Mass/Vol] 229 mg/dL High <200 [facility] Comment on above: Order Comment: Speci men Type: BLOOD SPECIMEN Ordering Facility: [facility] Address: [address] Result Comment: <200 mg/dL, Desirable 200-239 mg/dL, Borderline high >239 mg/dL, High Performed By: #### 2 4323-8, 3016-3, 57613-9, 91116-0 #### [facility] CLIA [id number] [address] [place] [address] [facility] [place] Cholesterol in HDL [Mass/Vol] 39 mg/dL Low >39 [facility] Comment on above: Order Comment: Speci [facility] Type: BLOOD SPECIMEN Ordering Facility: [facility] Address: [address] [place] [address] Result Comment: 40-5 9 mg/dL, Acceptable >59 mg/dL, High: Negative risk factor for coronary heart disease <40 mg/dL, Low: Positive risk factor for coronary heart disease Performed By: #### 2 4323-8, 6-3, 66715-1, 62108-8 #### [facility] CLIA [id number] [address] [place] [address] [facility] [place] Cholesterol in LDL [Mass/Vol] 155 mg/dL High <100 [facility] Comment on above: Order Comment: Speci [facility] Type: BLOOD SPECIMEN Ordering Facility: [facility] Address: [address] [place] [address] Result Comment: <100 mg/dL, Optimal 100-129 mg/dL, Near optimal/above optimal 130-159 mg/dL, Borderline high 160-189 mg/dL, High >189 mg/dL, Very high Secondary prevention optimal LDL Cholesterol levels are recommended to be < 70 mg/dL Performed By: #### 2 4323-8, 3016-3, 63299-3, 62647-0 #### [facility] CLIA [id number] [address] [facility] [address] [place] Cholesterol in LDL/Cholesterol in HDL [Mass ratio] 3.97 {ratio} High <2.54 [facility] Comment on above: Order Comment: Rangel zamora Type: BLOOD SPECIMEN Ordering Facility: [facility] Address: [address] [place] [address] Result Comment: Refe rence: 1. National Cholesterol Education Program ATP III Guideline At-A-Glance Quick Desk Reference: National Heart, Lung, and Blood [place]. National Institutes of Health. 2001: NIH Publication No. 01-3305. 2. An International Atherosclerosis Society position paper: global recommendations for the management of dyslipidemia: executive summary, Atherosclerosis. 2014: 232(2):410-413. Performed By: #### 2 4323-8, 6-3, 56792-7, 64472-8 #### [facility] CLIA [id number] [address] [facility] [place] [address] [place] Cholesterol in VLDL [Mass/Vol] 35 mg/dL High <30 [facility] Comment on above: Order Comment: Rangel zamora Type: BLOOD SPECIMEN Ordering Facility: [facility] Address: [address] [place] [address] Performed By: #### 2 4323-8, 6-3, 07667-3, 49659-2 #### [facility] CLIA [id number] [address] [facility] [address] [place] Cholesterol non HDL [Mass/Vol] 190 mg/dL High <130 [facility] Comment on above: Order Comment: Rangel zamora Type: BLOOD SPECIMEN Ordering Facility: [facility] Address: [address] [place] [address] Result Comment: <130 mg/dL, Optimal 130-159 mg/dL, Near optimal/above optimal 160-189 mg/dL, Borderline high 190-219 mg/dL, High >219 mg/dL, Very high Secondary prevention optimal non HDL Cholesterol levels are recommended to be <100 mg/dL Performed By: #### 2 4323-8, 3016-3, 78815-1, 47525-7 #### [facility] CLIA [id number] [address] [place] [address] [place] Cholesterol.total/Tia sterol in HDL [Mass ratio] 5.87 {ratio} High <5.10 [facility] Comment on above: Order Comment: Speci men Type: BLOOD SPECIMEN Ordering Facility: [facility] Address: [address] [place] [address] Performed By: #### 2 4323-8, 3016-3, 19616-0, 95105-4 #### [facility] CLIA [id number] [address] [place], [place] [address] [place] [address] [place] FASTING TIME 12 hrs Normal [facility] l Comment on above: Order Comment: Speci men Type: BLOOD SPECIMEN Ordering Facility: [facility] Address: [address] [place] [address] Performed By: #### 2 4323-8, 3016-3, 91115-7, 15121-8 #### [facility] CLIA [id number] [address] [place] [address] [place] Triglyceride [Mass/Vol] 173 mg/dL High <150 [facility] Comment on above: Order Comment: Speci men Type: BLOOD SPECIMEN Ordering Facility: [facility] Address: [address] [place] [address] Result Comment: <150 mg/dL, Normal 150-199 mg/dL, Borderline high 200-499 mg/dL, High >499 mg/dL, Very high Performed By: #### 2 4323-8, 3016-3, 61690-8, 30799-9 #### [facility] CLIA [id number] [address] [place] [address] [place] PTH-Intact SerPl-ncon 06-2 Parathyrin.intact [Mass/Vol] 42 pg/mL Normal 15-65 [facility] Comment on above: Order Comment: Speci men Type: BLOOD SPECIMEN Ordering Facility: [facility] Address: [address] [place] [address] Performed By: #### 2 731-8 #### [facility] CLIA [id number] [address] [place] [address] [id number] [address] [place] TSH SerPl-aCncon 12-01-2021 TSH Qn 3.170 m[IU]/L Normal 0.270-4.200 [place] Comment on above: Order Comment: Rangel zamora Type: BLOOD SPECIMEN Ordering Facility: [facility] Address: [address] [place] [address] Result Comment: If t he patient is , TSH reference range varies by gestational period: First Trimester (weeks 9-12): 0.180-2.990 mIU/L Second Trimester: 0.110-3.980 mIU/L Third Trimester: 0.480-4.710 mIU/L Franco Callejas et al. A Practical Approach for the Verifications and Determination of Site- and Trimester-Specific Reference Intervals for Thyroid Function tests in . Thyroid, 2019:29:3:412-420. Varun Blevins, et al. 2017 Guidelines of the [place] Thyroid Association for the Diagnosis and Management of Thyroid Disease during and the . Thyroid, 2017:27:3:315-389. Performed By: #### 2 4323-8, 3016-3, 58682-2, 44546-2 #### [facility] CLIA [id number] [address] [facility] [address] [place] VITAMIN B1 (THIAMINE), WHOLE BLOODon 12-01-2021 Thiamine (Bld) [Moles/Vol] 134.6 nmol/L Normal 84.3-213.3 [facility] Comment on above: Order Comment: Rangel zamora Type: BLOOD SPECIMEN Ordering Facility: [facility] Address: [address] [place] [address] Result Comment: This assay measures the concentration of thiamine diphosphate (TDP), the primary active form of vitamin B1. Approximately 90 percent of vitamin B1 present in whole blood is TDP. Thiamine and thiamine monophosphate, which comprise the remaining 10 percent, are not measured. This test was developed and its performance characteristics determined by [facility] [place] ([facility] It has not been cleared or approved by the FDA. -[facility] is regulated under CLIA as qualified to perform high-complexity testing. This test is used for clinical purposes. It should not be regarded as investigational or for research. Performed By: #### B 1WB #### [facility] CLIA [id number] [address] [facility] DESK [id number] [place] Vit [facility] Cobalamin (Vitamin B12) [Mass/Vol] 304 pg/mL Normal 232-1,245 [facility] Comment on above: Order Comment: Speci men Type: BLOOD SPECIMEN Ordering Facility: [facility] Address: [address] [place] [address] Performed By: #### 2 4323-8, 3016-3, 48206-9, 29661-9 #### [facility] CLIA [id number] [address] [facility]. [address] OF [facility] No Panel Informationon 11-28 [facility] US ABD RIGHT UPPER QUADRANTo n [...] biliary ductal dilatation. The gallbladder is unremarkable. Hospice Case Manager: PSCB Transcribe Date/Time: Nov 28 2021 2:20P Dictated by : CJ QUINTERO MD This examination was interpreted and the report reviewed and electronically signed by: CJ QUINTERO MD on Nov 28 2021 2:21PM EST [id number] [facility] XR CHEST 2V FRONTAL/LATon XR CHEST 2V FRONTAL/LAT * * *Final Repor t* * * DATE OF EXAM: Nov 28 [...] tissues: Unremarkable. IMPRESSION: No acute radiographic abnormality. Hospice Case Manager: PSCB Transcribe Date/Time: Nov 28 2021 1:32P Dictated by : KOMAL VINES MD This examination was interpreted and the report reviewed and electronically signed by: KOMAL VINES MD on Nov 28 2021 1:33PM EST [id number] [facility] ANES POSTPROC EVALon 022 ANES POSTPROC EVAL HNO ID: [id number] Author: Fannie Tanner MD Service: Anesthesiology Author Type: Physician Type: Anesthesia Postprocedure Evaluation Filed: 11/26/2021 3:12 PM Note Text: POST ANESTHESIA EVALUATION NOTE : 1990 Procedure Summary Date: 11/26/21 Room / Location: Procedures Anesthesia Start: 1315 Anesthesia Stop: 1328 Procedure: EGD DIAGNOSTIC Diagnosis: Pre-op exam (Heartburn) Scheduled Providers: Mulugeta Salmon MD; Fannie Tanner MD; Maria Alejandra Callejas APRN.RN TELEPHONE TRIAGE Responsible Provider: Fannie Tanner MD Anesthesia Type: [...] November 26, 2021 TIME: 3:12 PM CSN: [id number] [facility] ANES PRE-OPon 11-26-2021 ANES PRE-OP HNO ID: [id number] Author: Fannie Tanner MD Service: Anesthesiology Author Type: Physician Type: Anesthesia Preprocedure Evaluation Filed: 11/26/2021 12:27 PM Note Text: ANESTHESIOLOGY DAY OF SURGERY NOTE : 1990 Procedure Information Date/Time: 11/26/21 1245 Scheduled providers: Mulugeta Salmon MD; Fannie Tanner MD; Maria Alejandra Callejas APRN.RN TELEPHONE TRIAGE Procedure: EGD DIAGNOSTIC Location: Procedures Estimated body [...] and consent discussed: yes. Patient / Responsible Green Party agrees to proceed: yes Patient / [...] November 26, 2021 TIME: 12:27 PM CSN: [id number] Normal [facility] EGD DIAGNOSTICon 11-26-2021 [facility] Upper GI endoscopyon 022 Upper GI endoscopy [facility] Gastrointestinal Endoscopy Patient Name: Funmilayo Conway Procedure [...] by the physician, the nurse and the counterintelligence agent in the pre-procedure area in the endoscopy [...] previously scheduled. Procedure Code(s): --- Professional --- 64182, Esophagogastroduoden oscopy, flexible, transoral; diagnostic, including collection of specimen(s) by brushing or washing, when performed (separate procedure) Diagnosis Code(s): --- Professional --- K21.0, Gastro-esophageal reflux disease with esophagitis R12, Heartburn CPT copyright 2019 [employer]. All rights reserved. The codes documented in this report are preliminary and upon floor framer review may be revised to meet current compliance requirements. Attending Participation: I personally performed the entire procedure. Scope In: 1:21:30 PM Scope Out: 1:24:29 PM MD Mulugeta Tony MD 11/26/2021 1:27:19 PM This report has been signed electronically by Mulugeta Salmon MD Number of Addenda: 0 Note Initiated On: 11/26/2021 1:06 PM Estimated Blood Loss: Estimated blood loss: none. Normal [facility] HISTORY PHYSICALon HISTORY PHYSICAL HNO ID: [id number] Author: Maria T Lares APRN.DUTY MANAGER Service: ? Author Type: Nurse Practitioner Type: HANDP Filed: 11/12/2021 3:58 PM Note Text: HISTORY AND PHYSICAL EXAMINATION SERVICE DATE: 11/12/2021 SERVICE TIME: 3:26 PM PRIMARY CARE PHYSICIAN: No Pcp This is a virtual visit using LeadPages video visit. It required patient-provider interaction for [...] fevers. Neurological: No history of TIA's, stroke, PUBLIC RELATIONS REPRESENTATIVE tumor, impaired sensorium, hemiplegia, paraplegia or quadraplegia. No neurological symptoms or problems. Respiratory: No history of current cough or dyspnea, or pneumonia in the past 6 weeks. No history of respiratory/pulmonar y symptoms or problems. Cardiovascular: No history of HTN requiring medication, no history of angina, CHF, [place], cardiac surgery or stents. Denies rest pain, [...] > 1 time per night or hematuria. PUBLIC HEALTH ENGINEER: Negative for abnormal vaginal bleeding, abnormal vaginal [...] results with (more content not included)... Normal [facility] COVID Quick Testingon 2021 Result Negative Cure[employer] Other Quick Strepon 10-27-2021 S. pyogenes Org specific cx Ql (Throat) Negative TrackTik Other Quick Strep [employer] Other Consent for Procedure/Surger yon 08-05-2021 Consent for Procedure/Surgery [id number] #1.00CD:127 Normal [facility] Ambulatory Visit Summaryon 0 08-04-2021 Ambulatory Visit Summary FUNMILAYO CONWAY :1990 Visit Date:08/04/2021 Ambulatory Visit Instructions Your Care Team Attending Physician - EDY JOYCE, Elmira Infante Primary Care Physician - John JOYCE, Marco A Referring Physician - Marco [...] are no longer receiving treatment for. Normal [facility] Physician Referralon 022 Physician Referral [id number] #1.00CD:127 Normal [facility] Physician Referral [id number] #1.00CD:127 Normal [facility] 06-08 SARS-CoV-2 (COVID-19) RNA JONH+probe Ql (Unsp spec) Not detected Normal NOT DETECTED [facility] Comment on above: Result Comment: This test is not yet approved or cleared by the [place] FDA. When there are no FDA-approved or cleared tests available, and other criteria are met, FDA can make tests available under an emergency access mechanism called an Emergency Use Authorization (EUA). The EUA for this test is supported by the [employer] of Health and Human Service's (HHS's) declaration [...] SARS-CoV-2. Performed By: #### C VDTB #### [facility] [address] [address] Dr. Kerri Roberto Covid-19 PCR ([facility])on SARS-CoV-2 (COVID-19) RNA JONH+probe Ql (Unsp spec) Not detected Normal NOT DETECTED [facility] Comment on above: Result Comment: This test is not yet approved or cleared by the [place] FDA. When there are no FDA-approved or cleared tests available, and other criteria are met, FDA can make tests available under an emergency access mechanism called an Emergency Use Authorization (EUA). The EUA for this test is supported by the Data [employer]st of Health and Human Service's (HHS's) declaration [...] consistent with SARS-CoV-2. Performed By: #### C VDTBH #### [facility] [address] [place] [id number] [address] Kerri Roberto Coding Summary.on 12-26-2020 Coding Summary. CD:[id number] Gh0bWw+PGhlYWQ+PE1FV OGfK41xuEBkkS6XO0hXY O0MIINSICPTLH7KYQ0ux XQ4WQtoS4UyluVo DjfchMIbMG12QAr9EEN0 jSwlTCmzrB1ruMQiJ3d8 ZzHjBM62iY67UZtdPQAo PtP4DyXodrrquCLz B1eiVfNipGQkUbi+PHRh YmxlIHdpZHRoPScxMDAl LfMkmDioSV1dGp0vFWWf LWNvbGxhcHNlOiBj t6ecRHOoEMhyOL7bxXgs A3QvbHN3QSPrp8c2Gl19 dHI+DUPaTCZ3kYtqFZtp x962HwJwo6mqLIT7 pVBrFQgcJCE3I31rd0H9 ZKYkYONwOBN0ePL6rK4y jWxftyvvD4StiYMxDhU7 VOI4sQOixJ5cpNrm whywwF5zFiz+J96QID1A HJPOWP0TFti7F6WyKbso dHI+WA85YOWvXH60lPQh mNDnt0otiZk2XvWi MYXvSKV5xIacGLyqk6Dc TWIaO31vgSPrm3F8ZWFl lYhwiVKsTzOruYK4dU8o NGqdfzvwb1vtdgfz Nhzrm1hpmp31lH88H59l DThiYFXnDXQ1XSKlEBFd iYqmze2vtI3cDp7+IDxj a0hjc6bybFv8YgXq HUOfjiQgiItyERE5f7Dy Bc88K3CixLwwt7KuOql1 cl15qFCnq2A6eQU5MQay EQTqaU3hCVcwAqH7 AEHlUpMaaY80sVZcGRia Ug7juSgdiOlxUD0mWMKl lnnrYLSegO4zOILsdGJn sKaeWZ7lZNXfnorx k336ZvSdEPZ0MZAluDUv Z6UyeX4sTkQfXOHoWBYy U5SjvZYrQYrlG890CJrk JfW8KNCcmaAiR7Yi PIDnbUsbZwW2w7U0Aj1I t1FeinokXJK2YEuwTHS8 BhLbTqWwTlZ9S2GrAwe6 DHIpiHkuBK7qO0Ga QWIgqfvqurvwyCK4PVDf JBAyiY61cXLxKGgmJz0m c3I6e701XSCpLBLwoF72 Jx9rsHqtRRJdzJCV cC9oswnlu4cvawmxPwWn SRAlIIr2ABw2UGHjvPqb PjBbSTR5WnY8TSE1oMRf mO9ddMczixepcF2a Oyc+S75rvB5iOYQ7PUE6 elieUOApqqTiFO36MP88 Q1ViVohwfCKbjVS+PGRp wkMehEtlHM5fHoTe a7dxi4KrDRggJ1VzAUOx LBwmXzl3SJQhTGD4vQB8 kM2kQQBaOFhlw0H1gLS7 J1IyhmZwxw7rf1at KBYmTKbrR57hjRLqu4R3 BIAdoFK0ZYOelDouRkCq pZ37Vqo+KBExrRypd9Xr Ohvnm5ybr4eckTj0 IjMwJSIgdmFsaWduPSJ0 d1JrCu73V72mCRhfQTEl VXGcRREcDVFimNoidk4p wG1cVq4+PGNvbCB3 wXZ7gC8iIHRrNvE0IUra R122YoSozCEgCzjhz3eu m5slkDl1GzTsXJXnefWo wJhiJLI3k7SmVp66 A44wIVfgYVMmZEOiWDGx ZFFzlRspoi4cpF5dEh5+ YE9ew1gnyh77sF19kEI+ ZQDuEOI0xDnaJPxe SJPheQ8mVNasVfQ3XXQv QmXsqF04nCBlKTenKq2h nLettEjaHS8kZHWtivkn m943XnRgn3kmVPEp wAAfWRsaXTY7P48uv5W3 KLKsVWTdCJQ6zVD2cM4i bGlnbjogbGVmdDsgdmVy dDymMWlgQMmcR571 IHRvcDsnPlBhdGllbnQg UtRfNZh9B1DtMhz8LXPb eDkgNU5mpIPhMWzmTg9e uRmboHjgRC5zPNBi eiupc208JcGep5kwNWJd iZEzCOplTGM8D55no9G9 NDHxBDLyCSU3hLU5eA3g bGlnbjogbGVmdDsg vbZkiDdeAWhwZVoeY136 IHRvcDsnPkJpcnRoIERh eJI1VL07EC60bLLiq1S9 hVZ2J3FdEHSzgrgo bjepqZL6NSLuCDEamO71 Bo5iqVboTv8bMXKkXRF7 ZFCtrMLvW0JesS4kBqSa YLBkNNWaY0YmoGYu CZqhO171GZnuYhQ0QYKy lhAiW4EqPXDcbJmrWjH8 f9R1Tn2IW2E9IC27CK63 tXHbv0S8xTY1F8Qb GFGffbuyixvkkNQ3BYRf ZOJppH28Ss9gaKqtOr5h ONSpWGZ5FJQvlMDqL2Nc yL9sAaJaOHCeJJUp N7OuvOQkZIvtN965RHss RiE1RTKtowJoR5KvJWAs nSpnTwX3l7A1Xz2LDMj7 UR76EE28lJLul3S0 iID2Q3FwVOFfktroqenx oJQ9DICiYJSdrF75Nr5n kMmjRx1yYXMxOHS9FWWb wJHjN1HocY2nCkZc BLHeQQMpK2RgySZeVQkv O472QFuoLfN4LTJqajIf I0PkLNQvsUfrTxP2a8J8 Bz1KXQWtRR80WZH0 lHJ0WA53QZ20W6ZaOdxa dGFibGU+PHRhYmxlIHdp ZHRoPScxMDAlJyBzdHls OJ0yQp2pYNXwDQCf lKcixIZhBmVpe0yyQYXx IAvjJM5tfNqwR5HuvPH1 CBEeo9o1Zz76J90eD6Mz dXA+SSPaxWT6tKJ5 aR7mUyJoKsK0ZJxkE568 TrRdjEQiDomsn0bjv5lb rAn9QtI7VOQbdeOqeRts EHN6v6WaSn93Q79d IHdpZHRoPSIxNSUiIHZh eTzoyz6dxI8vTz8+PGNv lDP7oXP4mQ7eYhJtHsE8 RRxoX601ShYslZKu Iopog2lvf8wfvNw9SeAn VWKvxwEgwYdnWKX1c9Jz Px74T0ArkCaij1KpUaj9 so30oSBrn8W5dAE7 W6VpKMGmllqeuVZyyVlj PS5dRQOporvrDBIdqT5g IESyD8a5TmUlVxA3CJza P9AepjI5PAXuiQOr NLkeIZV0W86ye5F4LEMp UEJdLQN0sIP3mI2dcLqb bjogbGVmdDsgdmVydGlj ZQkoBZagP739BWTq iAdjEOHbmC4vXHPicGGn tEeyVI7vQIIcakglUahA MoHNWuzoNpVNJBALZQ64 SR62gCEkr1F9qLV7 O4WwFUWuosztxptrgVF2 ICJbTDTqfZ53hBXoMFgz Mq3cz6O9e900ISGpJAXg tI85Cc4ciPkvDORm rJSRwS8kiquve8wlyrfy XhLgZBZtWDo8TOl6DLUo rFrtOhQyKUN7FlG8FDZ0 vUSczP1nyZpfnoui iJ1aHhy+MTEvMTQvMTk4 OTwvdGQ+NTEfIFA4lEvk YPohNEDfmH9wQBRfQ7v0 VoKoZwU0XKynC3Dy DQDavvkfJs51xY5nIjRj LtS6PFnvD8PmagK4GSMt qCLvCNctIIY9N40ox3F3 GWJlNKKjCKV9sDU6 cG3ayIgvymflmCKniFmb znIcaAqaWQzpTWhvG135 IHRvcDsnPjMxIFllYXJz OJ42ZN53bBFhm5C6 tMJ2W9BrAMRnsjjvalur yPI3CYVcGUVloX10lNQy OOfnQx4fg3A8g737IOLv LJOuyH48Tj0reBxp FNWreSHRmI6goplgj7bv gxqhQcTyFVJvGTf0ZEa0 PQGroChxBhWfRQK8VoU7 RVV1uLGqkL0deEhn wsgybT2iBqw+RmVtYWxl OI27QI89fELdv5X1kSJ7 T2ErPRVojpnlwmuuaTX0 GLZoNNHsaC34sOGp XWxdBs0as5H4z561LLLb ZAMkiP27Sp0bkAlgOSOp aEEKmA2osxpov7cxsptx IlJfCIEeKTo9ZVf0 XYVgrLdtRrTxTMT4NxB3 BFO7tBPenK2zbPuiimgv mR8lAjl+Q2BcERV6ZNIo r036T1MmYgdtzRD+ IJ69LCWbNR58oKBvkMJh w5yyjWi8AvZeGPSeDEI8 bMgoVCnye6GfUBTrK51x pNHud5O2EEMwjWrw tNOrIlHoyTI3xO7zUKxx bskgx5ujhneaZupfn7wl rg38zM01L91wMDumFKEz PSIzMCUiIHZhbGln yp1tjH8jQy8+PGNvbCB3 wGV2kE9lCgTgXuT7XTcs K656UpIllAVmQwccy0gt o7iynRy1ErEySWFi vlWigQjaFIE7g4QeZj20 K87sAUvjBDSzBQNzLIYq VZRufLhlay1uzZ6iGk6+ NN2xo5rwjq00rF87 dHI+HTVkLZF9iTgsZBao URFxhO4zPTllNqL8FMTv AaJecF73eNOoAEzrNj2v vKbvmWgqKC7dSARr leuxf225JuFjy4yrDFFs kDScFXzaMCN4J02ao3B7 RONpZLJxLXK2wWX7nK9y bGlnbjogbGVmdDsg jdErlLasGBohXIqrS369 GVTgxSmwVqNpiIVyI2uk hrPZLK2yLyzzqFU+PHRk XWN2tEaxVOecYRDc wS5lVBTtP2b1WjIrCcC1 MRkvU1PixmS1ZJKwzWBz QAJmvTDCwJ1qyidiw7fq cjogIzAwMDAwMDt0 MGt0TYOmuTpaYzDeJID6 NbP3JBV9bKVwmC5scNbi yiwvoH6sVur+RklOOjwv dGQ+DYIaHAR2vQnx TIywYGCwfC5rGNDrX5z8 InWcDpA5XNmwO6ZsyaA9 NBPorFTlGOTjgKDNmQ1z gdyay5geprriUwHu WTNwUWt5JKu5ILGswSao GjIlQXR0TkB8BLF4bZKb iF9yqFyrtpxamW1qVsb+ TVJOOjwvdGQ+PHRk FZX9rXsrQSxuZFEkfG4j SDJbU5v6ChUxEzY8KQgw G4BwaqY5DMBjzZQcFJGo sVMBpU7rhudru1vj eucmZmXkJVShOZx2FOd0 WXUeyCdiXhGqJJC1AzE8 SPK7eXYquZ8ocYqkltvg pQ3tLcq+WHF9TMM8 RZ80JP11W3WsCrbjdLPo bGU+PHRhYmxlIHdpZHRo JOyoKHYlEjDquCulVS0z Kw1lGNLiAKHifTur cHNl (more content not included)... Normal [facility] Coding Summary.on 12-24-2020 Coding Summary. CD:[id number] Gh0bWw+PGhlYWQ+PE1FV GNzO08leRRamX6XR2yKO L4YNGOBASGIWB4ILF5en IG1UAoiI4IxlrWg WsgtsSMjXW17GGx2LKQ1 fYdjHFizyQ8amISiA3h0 KsIrXG53sN59IPzwPWFr EkS7PqNaxakgaORy Y0jhKwCwlRSaWfe+PHRh YmxlIHdpZHRoPScxMDAl JjXheYusYT7rIv2bUAKn LWNvbGxhcHNlOiBj c7gxEZIrZHpoQH8uxLlz C0MmxWC5ISQsp1l6Bx35 dHI+RTPpYCO4eTlzPYmg g616VrJcw6otNFB9 jWSuAOunZJW9L13vd4P4 ADRxRMUaRAX9bQO1yZ9e yZnqbkfnJ5FmeYFfMdW1 RLT4dFJnfR8eeXar gsraoR8cYdl+Y06FUY6R EDLGVL4KOkz2D7RrKpwo dHI+LT08ZUNfFZ12uUVc uQGwr8umvGv9GuZk UBUkSAI7jOagQHuuf8Tc DNUdL37sdPGii9Q1QGUy cToivJKmYtOacIK2yK9x QFxlbqclt7roeocs Pinng4lvgn91xL23I19v QExuRRWiSBB6MXJsQIAg mFfpjo0gdA4hHp3+IDxj h0cop3xbeMj2YbSu OQVolnIigLcrTPI8b3Vi Pl82O2PbpUljf4VfYys8 cr07qKMho8B0wVD2TLlb DSIkoZ7dJKdwFvC5 OFIgAjJtjE26rPVwIJbl Hf5dbZtfyCixEI7eITKs aiaoDLGyvC9sZGLjeLIn bMkhWU0vTEUdgdof j982PiJlHDC8CQQmqUPh Q5ZipP6sGxYfOINxTYPq A0FxcPWhWSlwZ685JXoe XsI3VDCrrkImB6Zk IULklCtiHlU8n6T0Yx6U e9JakfuaSFX3KUfkWRF8 IlUeTmRxWgV7F9NpJxt7 NIUjnAnfNK7rM9Ya OFAatziscdnytXU6PJBj IIYmqD97wMAzBPkwSa0g j1Q7p312YZPwLFOwnU26 Lh9voAdqAJVplVHW vI2vdugee9oooopqChFp RMFzZPi0ROj3KEFaiYox BgMaSUR8ExR7TDI7bHUe hE8sjSvuqoeakQ5w Oyc+P38wdT3dKBQ8OVP6 rklyMAKjosByJG20RA70 H2SiDuxiaYAvwLB+PGRp ldUveClvWR4iFbEb h5wpx4EaFFqcG7XzZSXw FVymSpr4MVCcYTX5zUJ4 uJ5mGLMrAQrkj2F3aRJ2 J6KzfbJsmy2iu1nl SOHiBDyaY87fbPUps8A6 EPYuqHH9KVWkaEwqUsYf gQ97Ylt+OKNcqJsij2Ax Wgjdp1lxi4yhgFa8 IjMwJSIgdmFsaWduPSJ0 b2CdNg37S81bBTvzKLZx WYIsEMTiUMKxrAxqkh9m gJ4qKd3+PGNvbCB3 tNF9pE7kNWPyQsP4ECdo R849IqZsmRQoJtbci2yu s9awoHk0WhXmMLXqiqGp aHkuGAZ4e8GtOi78 L92rWRefHOIxIVFtUKPi JPAkiVfuke3mwS8nZb3+ UK9vx5udnf91cU99aFE+ KYFiLAL9tGzhLIsy UBCvaH0tSApqMcB3CCKo DlLrcZ86mOMwUHwzOq2u oEwfsKwhMD8hSLUzqzwo e127JdQsi2zeCVCs fVQkODxxLHB9U96mt8Y0 JHKwSTVpGIY3nGC2cU4g bGlnbjogbGVmdDsgdmVy gNjmEKwxAMfjG508 IHRvcDsnPlBhdGllbnQg MrWvWAh2X2XfXae9SEIc zHraLS3zuSPrDRaxLn0l hLbecOunJH7vKJWp ffmfi927HfEyh2vtVWJj nUQwSGeoSQI8Z62ia6V4 VTWoDXNwJMC6xNP1tP6g bGlnbjogbGVmdDsg bxBktUdzFKpyJNddX277 IHRvcDsnPkJpcnRoIERh iTE7GG70XQ26vEPhy7N2 vDI2E0MaOWGzfvyw elwmzNB6VVEuGBLrmZ57 Sg1lfPkpTl8eVEDfYNQ2 SEKttMLrD8PcmI2kXrNg HEFmOMNzB8WzjRGg YIglM687COjcGfF8WXBg owAsH9RyGOOatAliUnQ1 x0O4Yq2JV7D2TN94CB88 uAVsx6R9gXU9X6Kf OCUcfqmhhaskxUI4SYRm ORUglL02Kg0dfWnrOh9n IRAdIEM1ZYUoyWEbE6Kf xD3hIoHsAQUeWQIy X0JzaROqTGynS970GJrw WgG6HVBsfdRqD9OwURNg mMzaLtR1e0W4Om2TCRk7 IL03IS82sUZdb5D6 sNE0X1QxOJNyvmxxjkqw lRC3SDIiGQSgrQ26Ub1p iQbsKj7eGNQeUGZ1GYIl pNYsD3EifP3fLeXr LSLnJYLeM7OudLDkWPuu Q922FTdfNlS0FATmltCh E4NoGXSupHdhAbF9g9E7 Gz9SCQJpBI38KNY6 jCS2ZF86US07X4IzSybg dGFibGU+PHRhYmxlIHdp ZHRoPScxMDAlJyBzdHls QY6fDm2vDKQiYTHs uJszrQImAyYha6vjZXDq CUzoVO7jrUegR0EchEM9 UTMep5f5Xq17Q76zG2Es dXA+IYImnLW7qYS3 gF3hEoGuSqA9EAumT185 WqXewLKkYmzjs6rph9yd fQp7RnP7EFCmiePvuBwq WBC5u8EwRj52G01q IHdpZHRoPSIxNSUiIHZh oGctlg2gfB4bTw1+PGNv vDS9jTJ1bB5eQuTuYbM6 XKpmP678SjIphNRf Rhlom2kfc4sboHu6RqEk WMUytuZcdFssTYY1i0Ga Th36R0QpzMxix7ZxAvs4 ww54mYPuv6M2iQN6 G6LuLUPpkxiksSOufQyz BL0xZNYaxdumSSWlfW8b OYXfN3b3DmZmTxW9EWeu T3MdhhN7QDOjkDPw YTrdCMO4N84iw3Z7WOGb SDCpHKN9xFQ1aL3vlWqy bjogbGVmdDsgdmVydGlj YPsqHSiiF287TJPl hEaaXSZflE3jAJXojLBw bXfbQT9hGGIvjegxXhwH FfYRDfisThQROXFJSG88 MJ53hMQna5N2vOB3 W5SvOCLdkvahycjkdFB0 YKShHEUiaH95fUHgOFvi Fa8vv7H7k613HAGkCVGf dU51Gg9zxKfqPFRn pHMSfC9wingxh8auirch PnLoUGGbAJk3JNv4EBRt iYodOaJbGRN8JoN5OKR6 bFStpZ1cpUakhggq hX2tIvw+MTEvMTQvMTk4 OTwvdGQ+YXYpBKJ3fWhs VBskRMGexB0eWNIcT6i0 IjUsOkH9JQydS5Zw FJUbknivYf97kI8pEtYb WxP3MMhfG9WyidE4UKSn hBGzWMqlIFS9X76jz3L9 BUNhDEXhDUU2cJX5 oU0srDfunuelgHLfqVbk dlTgrKvuVTttSUasB341 IHRvcDsnPjMxIFllYXJz GB21UG90iIIvv1I3 gIV7Z9BwIKFtetyimgfh ePP0LOEyXCQslA23sLDb LDubSv4ns9H7z409JWAs UNSxzS29Fo1joOvy VOWxwWYTsA5itnudo5zm bfpiOeBwWHTrDGo1ZBr6 EMCkeUnrHlOcNPZ7MeK0 YBB2oOXquY1dxCrq wwpdqW1xUkm+RmVtYWxl JY01GO46eKOqx1I9vJQ5 R0CwBDHdlydlngjboCK4 HJLsSQShvK82wLCl PBvaKc4jc2G7t837AIVu CUIdjW58Ig7vgKjnKKFl aONMhJ4bsfanz1ibsaeu ReXuCEHaHTu2UXf4 XBYykLguDhBlNTB0EmX6 PNV0wQTtpY3orBtbvsbp bO4zPfy+CA1hsamxxwM2 DN43AM89Q1EjKqpl dGFibGU+PHRhYmxlIHdp ZHRoPScxMDAlJyBzdHls QS7rZw2lIREyZDDysHdi oWOcZiJos1zzJFFn AWvpDS3nbCmgR6MxrJV1 ZSNfv9x4Zg70A07oV4Oj dXA+GAHphSF8uQG5iX1a HcAgXaA3SEmoH792 OlUidINqUineb1qse1oj tXh7UcWpWSYxdzVytCoj ZEW7o9RsAw14Y46hZDka ZHRoPSIyMCUiIHZh tHbbgv6xkY3zBl4+PGNv rMX8zPU3wF2qYhPaEzT2 KNciN919OhWwhFIfUchn F24wN0MjrSH+PHRy Guk2HSTmeCkzTI2mfSSn AVbyFk0hAEL9IyDjFhNu LLfzF8IgXJTifoiiulrc kFN7RUVkLWBhmH34 Pf2nfOkdCm6oJKFuYJW9 ALTzhZYdR3IgyZ9pQxXk CEQpRHTwL1MurCDvNOsa T074VCagUhM7ULAw ikCfX7ExTBJfiChgVdB1 i0H2Iz6AvPsmfBTrOF8l LnJrVSh5C2VqPwx9EVBi mCkcDY5feINmADda Ka6uwDmwpMlgEE8xTBEd lniyf504IyYdg6cwNNZc pJObIRluQEQ3P66ip4S4 EDJkUEEwYYE0lYW7 cV5juWdgezyblNYyvByw maPurLraBGxxDZctQ942 NORiyQcoWxDCCds1B5Kq Cmt3HBSruLnxML8e fOGqUNwyJw4ufDsdcTcf YG6lQURebqzlf954UlMj q5ktLHTlvVHfYLzkTKU5 A23ux0K5EIUeLMAp IMQ6yNQ7oB0zvTmrnxbl bGVmdDsgdmVydGljYWwt GGphJ742JAIprArrZd8U Djd0P6AbTch9HUVh iSeuCR9aqFPnXIqdTd7p gDnpnXjoEG7oKOProfgp p208VwUry2veKKFquOCj WXluDFU4F72iw9Q0 UWXgVPXmDMD6fKE5qS2b bGlnbjogbGVmdDsgdmVy dJkmCPuyFMnvR001HFEx cDsnPlBheWVyOjwv dGQ+XF88nh29I9XvUxok Nkm1JMLqRGN1pBP6zI5p AHBdQZpgl4C8tRT7H1Ai rqWugn7ba8auLQKq ZTog (more content not included)... Normal [facility] C Urineon 12-20-2020 Bacteria identified [...] Locations R1: This test was performed at: [facility], [address] [place] [address], [facility] , , [facility] Comment on above: Performed By: #### 1 [id number] ####[facility] [address] [place] [address] Discharge Instructionson Discharge Instructions [id number] 1#1.00CD:127 Normal [facility] ED Note-Physicianon 12-21-19 21 ED Note-Physician care transferred at change of shift. CT pending. CT returned without acute findings. Patient accepted for admission for pain control Impression: flank pain Normal [facility] Comment on above: Result Comment: Elec tronically Signed By: Yevgeniy JOYCE, Salvador\\.br\\Date and Time Signed: 12/19/20 23:07 EDT Inpatient Clinical Summaryon 12-20-2020 Inpatient Clinical Summary [address] [address] Clinical Summary Person Information: Name: FUNMILAYO CONWAY Age: 30 Years : 1990 Sex: Female PCP: Maki VELA PA-C Marital Status: Phone: [phone] Race: White Ethnicity: Non- or Language: Libyan Visit Id: Visit Reason: Vomiting; Back pain; Headache; VOMITTING; HEADACHE Speciality: Acuity: Enc Type: Observation Med Service: Medical Arrival: 12/19/2020 16:38:33 Discharge: Dispo Type: Admitted as IP to this Hosp Address: [address] [place] [phone] Provider Notes: Diagnosis: 1:Myalgia; 2:Headache; 3:Left flank [...] Address: When: Maki VELA [address] [place] [address] Business (1) 12/26/2020 8:30 AM Patient Education Information: Viral Illness, Adult Normal [facility] Inpatient Patient Summaryon 12-20-2020 Inpatient Patient Summary [address] [address] Patient Discharge Instructions PERSON INFORMATION [...] hydrated with water Take tylenol prn for [facility] Primary Care Physician to provide the following pending test results: Follow up: With: Address: When: Maki VELA [address] [place] [address] Lapio (1) 12/26/2020 8:30 AM In the event that this physician does not participate in your insurance network, please consult with your insurance company to find a nearby participating provider. Comment: ITOM JANE A, have received the attached patient [...] at bedtime as needed Insomnia. Pharmacy Information: [facility] Jose M Comment: PATIENT EDUCATION INFORMATION Instructions: Viral Illness, [...] infected with (more content not included)... Normal [facility] Procalcitoninon 12-20-2020 Procalcitonin .05 ng/mL Normal .00-.50 [facility] Comment on above: Result Comment: <0.5 ng/mL [...] to 24 hours. Performed By: #### 2 [id number] #### [facility] [address] [place] [address] XR Chest Single Viewon 12-20 XR Chest [...] M.D. Transcribed by: LILY Technologist: GLEN Bates [facility] Auto Diffon 12-19-2020 Basophils/100 WBC (Bld) 0.7 % Normal 0.0-2.0 F [facility] Comment on above: Order Comment: Order Added by Discern Expert. Performed By: #### 2 136543, 7803077, 8187096, 18249473, 2105370, 3650742 #### [facility] [address] [place] [address] Basophils/Leukocytes Auto (Bld) [Pure # fraction] 0.1 E9/L Normal 0.0-0.2 [facility] Comment on above: Order Comment: Order Added by Discern Expert. Performed By: #### 2 426112, 2782033, 6060635, 47276961, 2224920, 5528110 #### [facility] [address] [place] [address] Eosinophils/100 WBC (Bld) 0.6 % Normal 0.0-8.0 [facility] Comment on above: Order Comment: Order Added by Discern Expert. Performed By: #### 2 167151, 6693053, 4005773, 29019746, 9824862, 4087753 #### [facility] [address] [place] [address] Eosinophils/Leukocytes Auto (Bld) [Pure # fraction] 0.1 E9/L Normal 0.0-0.5 [facility] Comment on above: Order Comment: Order Added by Discern Expert. Performed By: #### 2 108535, 6780534, 2478018, 93624729, 3786197, 0078654 #### [facility] [address] [place] [address] Lymphocytes/100 WBC (Bld) 29.4 % Normal 14.0-50.0 [facility] Comment on above: Order Comment: Order Added by Discern Expert. Performed By: #### 2 650998, 9752512, 1443394, 41365252, 5840485, 0979089 #### [facility] [address] [place] [address] Lymphocytes/Leukocytes Auto (Bld) [Pure # fraction] 2.5 E9/L Normal 1.0-4.0 [facility] Comment on above: Order Comment: Order Added by Andrea Expert. Performed By: #### 2 301297, 1773939, 8059637, 73751252, 9848402, 6038793 #### [facility] [address] [place] [address] Monocytes/100 WBC (Bld) 7.8 % Normal 4.0-14.0 [facility] Comment on above: Order Comment: Order Added by Andrea Expert. Performed By: #### 2 941474, 7507877, 1096400, 74564766, 4746271, 8597201 #### [facility] [address] [place] [address] Monocytes/Leukocytes Auto (Bld) [Pure # fraction] 0.7 E9/L Normal 0.2-1.0 [facility] Comment on above: Order Comment: Order Added by Discern Expert. Performed By: #### 2 094899, 7675557, 0077966, 48771152, 5207910, 6848970 #### [facility] [address] [place] [address] Neutrophils/100 WBC (Bld) 61.5 % Normal 36.0-75.0 [facility] Comment on above: Order Comment: Order Added by Discern Expert. Performed By: #### 2 443301, 3575832, 2297770, 29619931, 2382584, 5846318 #### [facility] [address] [place] [address] Neutrophils/Leukocytes Auto (Bld) [Pure # fraction] 5.1 E9/L Normal 2.0-7.5 [facility] Comment on above: Order Comment: Order Added by Discern Expert. Performed By: #### 2 911811, 3686791, 7445173, 90463457, 1614812, 1874929 #### [facility] [address] [place] [address] CBC w/ Auto Diffon Erythrocyte distribution width (RBC) [Ratio] 12.7 % Normal 10.9-14.2 [facility] Comment on above: Performed By: #### 2 844196, 6084709, 6230452, 98127879, 6596313, 7810770 #### [facility] [address] [place] [address] Hematocrit (Bld) [Volume fraction] 41.2 % Normal 34.0-46.0 [facility] Comment on above: Performed By: #### 2 742717, 7835619, 6578275, 01252649, 1323237, 8516968 #### [facility] [address] [place] [address] Hemoglobin (Bld) [Mass/Vol] 13.8 g/dL Normal 12.0-16.0 [facility] Comment on above: Performed By: #### 2 759411, 3434407, 8413868, 66569567, 0776471, 8768462 #### [facility] [address] [place] [address] MCH (RBC) [Entitic mass] 29.6 pg Normal 27.0-34.0 [facility] Comment on above: Performed By: #### 2 932263, 1626002, 8045762, 86814895, 9399504, 7991724 #### [facility] [address] [place] [address] MCHC (RBC) [Mass/Vol] 33.5 g/dL Normal 31.4-36.0 [facility] Comment on above: Performed By: #### 2 896574, 6681226, 1409754, 77784120, 1241798, 9180261 #### [facility] [address] [place] [address] MCV (RBC) [Entitic vol] 88.3 fL Normal 80.0-100.0 F [facility] Comment on above: Performed By: #### 2 658346, 3739255, 5464012, 64432022, 1455419, 0205686 #### [facility] [address] [place] [address] Platelet mean volume (Bld) [Entitic vol] 8.3 fL Normal 6.4-10.8 [facility] Comment on above: Performed By: #### 2 548048, 9345594, 1834238, 25420435, 4425822, 3166892 #### [facility] [address] [place] [address] Platelets (Bld) [#/Vol] 188.0 E9/L Normal 150.0-500.0 [facility] Comment on above: Performed By: #### 2 353608, 4302176, 3042863, 81380621, 2198254, 5771561 #### [facility] [address] [place] [address] RBC (Bld) [#/Vol] 4.7 E12/L Normal 4.3-5.9 [facility] Comment on above: Performed By: #### 2 786765, 8203822, 2413934, 91799668, 0212703, 8606319 #### [facility] [address] [place] [address] WBC corrected for nucl RBC Auto (Bld) [#/Vol] 8.4 E9/L Normal 4.0-11.0 [facility] Comment on above: Performed By: #### 2 421617, 9422351, 0592329, 43255231, 4910162, 1544250 #### [facility] [address] [place] [address] CMPon 12-19-2020 Albumin [Mass/Vol] 4.2 g/dL Normal 3.3-5.0 [facility] Comment on above: Performed By: #### 2 096244, 2746209, 6501942, 28544871, 2430870, 8100440 ####[facility] [address] [place] [address] Albumin/Globulin (S) [Mass conc ratio] 1.0 Low 1.1-2.2 [facility] Comment on above: Performed By: #### 2 035100, 5618122, 9864772, 75195948, 0944646, 2939196 ####[facility] [address] [place] [address] ALP [Catalytic activity/Vol] 44 Int._Unit/L Normal 21-98 [facility] Comment on above: Performed By: #### 2 036560, 6233197, 7244797, 76114557, 5602310, 6623734 ####[facility] [address] [place] [address] ALT No additional P-5'-P [Catalytic activity/Vol] 22 Int._Unit/L Normal 6-46 [facility] Comment on above: Performed By: #### 2 833385, 3569472, 0898103, 76277537, 9316608, 8311957 ####[facility] [address] [place] [address] Anion gap [Moles/Vol] 14 mmol/L Normal 6-16 [facility] Comment on above: Performed By: #### 2 560809, 4383996, 5731832, 76083729, 7388618, 2966341 ####[facility] [address] [place] [address] AST [Catalytic activity/Vol] 18 Int._Unit/L Normal 5-43 [facility] Comment on above: Performed By: #### 2 022585, 1985415, 1272222, 23138956, 7177631, 7102478 ####[facility] [address] [place] [address] Bilirubin [Mass/Vol] 0.8 mg/dL Normal 0.0-1.1 [facility] Comment on above: Performed By: #### 2 632064, 4529180, 4220773, 24599544, 9827260, 6625831 ####[facility] [address] [place] [address] Calcium [Mass/Vol] 8.9 mg/dL Normal 8.9-11.1 [facility] Comment on above: Performed By: #### 2 038480, 2227114, 6733649, 48669770, 2134856, 0217978 ####[facility] [address] [place] [address] Chloride [Moles/Vol] 103 mmol/L Normal 101-111 [facility] Comment on above: Performed By: #### 2 267652, 7939869, 5427336, 01383213, 3164727, 2591409 ####[facility] [address] [place] [address] CO2 [Moles/Vol] 25 mmol/L Normal 21-31 [facility] Comment on above: Performed By: #### 2 847072, 2892358, 3437876, 97581379, 3962218, 7675213 ####[facility] [address] [place] [address] Creatinine [Mass/Vol] 0.5 mg/dL Normal 0.5-1.3 [facility] Comment on above: Performed By: #### 2 253659, 1777638, 4213375, 51526772, 4186160, 8413220 ####[facility] [address] [place] [address] Globulin (S) [Mass/Vol] 4.0 g/dL Normal 1.4-4.0 [facility] Comment on above: Performed By: #### 2 185585, 2137105, 6449519, 18194729, 9958330, 8939870 ####[facility] [address] [place] [address] Glucose [Mass/Vol] 90 mg/dL Normal 55-199 [facility] Comment on above: Result Comment: If t his glucose result represents a fasting glucose, interpretation should refer to the following reference range: 55-99 mg/dL Performed By: #### 2 252023, 8516898, 5260453, 06285090, 5254565, 4626525 ####[facility] [address] [place] [address] Potassium [Moles/Vol] 3.8 mmol/L Normal 3.5-5.3 [facility] Comment on above: Performed By: #### 2 866046, 6749602, 2752389, 81467172, 4030236, 1487332 ####[facility] [address] [place] [address] Protein [Mass/Vol] 8.2 g/dL High 6.0-7.8 [facility] Comment on above: Performed By: #### 2 365774, 5795306, 6605091, 09647238, 7979064, 7761031 ####[facility] [address] [place] [address] Sodium [Moles/Vol] 138 mmol/L Normal 135-145 [facility] Comment on above: Performed By: #### 2 850176, 4598475, 9863815, 02089173, 0649121, 3218858 ####[facility] [address] [place] [address] Urea nitrogen [Mass/Vol] 6 mg/dL Normal 5-21 [facility] Comment on above: Performed By: #### 2 089131, 8082362, 2227899, 62972281, 2806144, 5476229 ####[facility] [address] [place] [address] Urea nitrogen/Creatinine [Mass ratio] 12 No Units Normal 10-20 [facility] Comment on above: Performed By: #### 2 885060, 2421327, 3482572, 51784620, 3839416, 7118932 ####[facility] [address] [place] [address] CT Abdomen/Pelvis w/o Tutu prescott 12-19-2020 CT Abdomen/Pelvis w/o Contrast Exam Date/Time: [...] and spleen are not included within the eeycb-ez-ivqb of this renal stone protocol study. The [...] achievable. FINAL REPORT Dictated: 12/19/2020 7:54 pm KacyReuben lucero M.D. Signed (Electronic Signature): 12/19/2020 7:54 pm Signed by: Reuben Woodruff M.D. Transcribed by: LILY Technologist: JAY Technical Comments Rectal Contrast Given? No Oral contrast amount in ml's: 0 Normal [facility] Consent for Treatmenton 12-05 Consent for Treatment [id number] #1.00CD:127 Normal [facility] ED Clinical Summaryon 2020 ED Clinical Summary [place] [id number] ED Clinical Summary Person Information Name: FUNMILAYO CONWAY Mariah/[facility] Age: 30 Years : 1990 Sex: Female Language: Libyan PCP: Maki VELA PA-C Marital Status: Phone: [phone] Visit Id: Visit Reason: Vomiting; Back pain; Headache; NAUSEA AND VOMITTING SENT BY PCP Speciality: Acuity: 3 Enc Type: Emergency Med Service: Emergency Arrival: 12/19/2020 16:38:33 Discharge: LOS: 000 03:58 Checkin: 12/19/2020 16:38:33 Checkout: 12/19/2020 20:36:01 Dispo Type: Admitted as IP to this [facility] EVENTS: Event Name Event Status Request Date/Time [...] 12/19/2020 20:36:01 12/19/2020 20:36:01 12/19/2020 20:36:01 ADDRESS: [address] [place] [address] [address] [facility] [phone] PHYS DOC NOTES: MEDICAL INFORMATION: Prescriptions Given: Medications to Continue with No Changes Other Medications cephalexin (Keflex 500 mg Cap) 1 Capsules By Mouth every 6 hours for 7 Days. Refills: 0. ondansetron (ondansetron 4 mg Dis Tab) 1 Tablets By Mouth every 6 hours as needed Nausea/Vomiting. Refills: 0. PATIENT EDUCATION INFORMATION: Instructions: Follow up: DIAGNOSIS: Normal [facility] ED Note-Physicianon 12-20-19 ED Note-Physician Basic Information [...] (12/19/20 17:3 (more content not included)... Normal [facility] Comment on above: Result Comment: Elec tronically Signed By: Shiva Ferreira DO\\.br\\Date and Time Signed: 12/19/20 19:19 EDT ED Patient Education Noteon 12-19-2020 ED Patient Education Note Normal [facility] ED Patient Summaryon 021 ED Patient Summary [place] [id number] Patient Discharge Instructions Person Information Name: FUNMILAYO CONWAY Age: 30 Years Arrival Date: 12/19/2020 16:38:33 Discharge Diagnosis: Primary Care Physician: Maki VELA PA-C Provider Information Primary Provider: Shiva Ferreira DO Advanced Service Manager:None The exam and treatment you received in the Emergency Department were for an urgent problem and are not intended as complete care. It is important that you follow up with a doctor, nurse practitioner, or physician?s digital marketing assistant for ongoing care. If your symptoms [...] opioids can be used to help relieve lcwssmoa-yc-mxjgpg pain and are often prescribed following a [...] be struggling with addiction, tell your health personal care assistant and ask for guidance or call [employer]?S National Helpline at 4-436-320-LPNA. v Source: [place] Department of Health and Human Services/Center for Disease Control & Prevention [facility] Medications Given: Medication Dose Route Sodium Chloride 0.9% 1000.00 m (more content not included)... Normal [facility] Lactic Acidon 12-19-2020 Lactate [Mass/Vol] 0.9 mmol/L Normal 0.5-2.2 [facility] Comment on above: Performed By: #### 2 187870, 3131104, 6125865, 20665286, 8080075, 1432476 #### [facility] [address] [place] [address] Lactate [Mass/Vol] 0.8 mmol/L Normal 0.5-2.2 [facility] Comment on above: Performed By: #### 2 323301 #### [facility] [address] [place] [address] Physician Orderon 12-19-2020 Physician Order [id number] 73#1.00CD:127 Normal [facility] Troponinon 12-19-2020 Troponin I.cardiac [Mass/Vol] 2.30 pg/mL Low 10.10-27.10 [facility] Comment on above: Result Comment: The 95% CI (Confidence Interval) PPV (Positive Predictive Value) for myocardial infarction in females is 38 pg/mL, in males 51 pg/mL. The results should be used in conjunction with clinical conditions of myocardial infarction. (Access High Sensitivity Troponin I Instructions For Use, Darling Spencer, January 2018) Performed By: #### 2 730529, 2450370, 5415097, 59026148, 3350072, 0858793 ####[facility] [address] [place] [address] UA With Cult Reflexon 2020 Bacteria LM Ql (Urine sed) TRACE Normal Trace [facility] Comment on above: Performed By: #### 1 1952458 ####[facility] [address] [place] [address] Bilirubin Ql (U) Negative Normal Negative [facility] Comment on above: Performed By: #### 1 1676984 ####[facility] [address] [place] [address] Clarity (U) CLEAR Normal Clear [facility] Comment on above: Performed By: #### 1 3514673 ####[address] [address] Color (U) YELLOW Normal Yellow [facility] Comment on above: Performed By: #### 1 4531492 ####[address] [address] Epithelial cells.squamous LM.HPF (Urine sed) [#/Area] 3-4 Normal 0-2 [facility] Comment on above: Performed By: #### 1 3211221 ####[address] [address] Glucose Test strip (U) [Mass/Vol] Negative Normal Negative [facility] Comment on above: Performed By: #### 1 1916490 ####[address] [address] Hemoglobin Ql (U) Negative Normal Negative [facility] Comment on above: Performed By: #### 1 2384566 ####[address] [address] Ketones (U) [Mass/Vol] 1+ Abnormal Negative [facility] Comment on above: Performed By: #### 1 9126436 ####[address] [address] [place].plasma/[place]. RBC (Bld) [Mass ratio] 0-3 Normal 0-3 [facility] Comment on above: Performed By: #### 1 4676988 ####[address] [address] Mucus Ql (Urine sed) 1+ Normal [facility] Comment on above: Performed By: #### 1 1610631 ####[place] [address] [place] [address] Nitrite Ql (U) Negative Normal Negative [facility] Comment on above: Performed By: #### 1 1923912 ####[facility] [address] [place] [address] pH (U) 6.0 [pH] Invalid Interpretation Code 5.0-9.0 [facility] Comment on above: Performed By: #### 1 2155660 ####[address] [address] Protein (U) [Mass/Vol] TRACE Abnormal Negative [facility] Comment on above: Performed By: #### 1 5444874 ####[place] [address] [place] [address] Specific gravity (U) [Rel density] 1.025 Invalid Interpretation Code 1.005-1.030 [facility] Comment on above: Performed By: #### 1 2821360 ####[address] [address] Type of Urine collection method Clean Catch Normal [facility] Comment on above: Performed By: #### 1 3191776 ####[facility] [address] [place] [address] Urobilinogen Qn (U) 0.2 {Tg'U}/dL Normal 0.0-1.0 [facility] Comment on above: Performed By: #### 1 1439434 ####[address] [address] WBC Auto Ql (U) Negative Normal Negative [facility] Comment on above: Performed By: #### 1 9683103 ####[facility] [address] [place] [address] WBC LM.HPF (Urine sed) [#/Area] 0-5 Normal 0-5 [facility] Comment on above: Performed By: #### 1 9172130 ####[address] [address] eGFRon 12-19-2020 GFR/1.73 sq M.predicted among blacks MDRD (S/P/Bld) [Vol rate/Area] mL/min/{1.73_m2} Normal >=59 [facility] Comment on above: Order Comment: Order added by Discern Expert. Result Comment: eGFR is race adjusted. AA=. Performed By: #### 2 047690, 6136810, 9588151, 50729605, 1879683, 0602724 ####[facility] [address] [place] [address] GFR/1.73 sq M.predicted among non-blacks MDRD (S/P/Bld) [Vol rate/Area] mL/min/{1.73_m2} Normal >=59 [facility] Comment on above: Order Comment: Order added by Discern Expert. Result Comment: Imaging Science Professor roshan kidney disease could be indicated at eGFR's of less than 60 mL/min/1.73m2. Kidney failure is indicated at less than 15 mL/min/1.73m2. Performed By: #### 2 303822, 4974587, 3133537, 71089562, 0381881, 8355643 ####[facility] [address] [place] [address] Consent for Treatmenton 12-05 Consent for Treatment [id number] #1.00CD:127 Normal [facility] Discharge Instructionson Discharge Instructions [id number]#1.00CD:127 Normal [facility] ED Clinical Summaryon 2020 ED Clinical Summary [address] [address] ED Clinical Summary Person Information Name: FUNMILAYO CONWAY [place] Age: 30 Years : 1990 Sex: Female Language: Libyan PCP: Maki VELA PA-C Marital Status: Phone: [phone] Visit Id: Visit Reason: Back pain; Headache; [...] 12/18/2020 03:52:27 12/18/2020 03:52:27 12/18/2020 03:52:27 ADDRESS: [address] [place] [address] [address] [id number] PHYS DOC NOTES: MEDICAL INFORMATION: Prescriptions Given: New Medications [id number], [address] [place], [place] [id number], [phone] cephalexin (Keflex 500 mg Cap) 1 Capsules By Mouth every 6 hours for 7 Days. Refills: 0. Medications to Continue with No Changes Other Medications ondansetron (ondansetron 4 mg Dis Tab) 1 Tablets By Mouth every 6 hours as needed Nausea/Vomiting. Refills: 0. PATIENT EDUCATION INFORMATION: Instructions: Pyelonephritis, Adult Follow up: With: Address: When: Maki VELA [address] [place] [address] Business (1) In 3 days DIAGNOSIS: Acute pyelonephritis Normal [facility] ED Note-Nursingon 12-18-2020 ED Note-Nursing pt ambulatory to with steady gait w/o assistance. urine sample obtained. at bedside for eval; awaiting further orders Normal [facility] ED Note-Physicianon 12-19-19 ED Note-Physician [...] day(s), # 28 cap(s), Refills(s) 0, Pharmacy: [id number], 165, cm, 12/18/20 1:04:00 EDT, [...] Information Maki VELA In 3 days [address] [place] [address]- Business (1) Additional Instructions: Patient Education Pyelonephritis, [...] Family History (more content not included)... Normal [facility] Comment on above: Result Comment: Elec tronically Signed By: Darien Fischer DO\\.br\\Date and Time Signed: 12/18/20 04:05 EDT ED [...] you start to feel better. ? Take hlzr-ybf-vfxfljv and prescription medicines only as told by [...] 05/24/2006 Document Revised: 03/28/2019 Document Reviewed: 03/28/2019 ElseHipbone Patient Education ? 2019 ideaTree - innovate | mentor | invest. Normal [facility] ED Patient Summaryon 021 ED Patient Summary [address] [address] Patient Discharge Instructions Person Information Name: FUNMILAYO CONWAY Age: 30 Years Arrival Date: 12/18/2020 00:55:40 Discharge Diagnosis: Acute pyelonephritis Primary Care Physician: Maki VELA PA-C Provider Information Primary Provider: Darien Fischer DO Advanced Service Manager:None The exam and treatment you received in the Emergency Department were for an urgent problem and are not intended as complete care. It is important that you follow up with a doctor, nurse practitioner, or physician?s digital marketing assistant for ongoing care. If your symptoms [...] Address: When: Maki VELA [address] [place] [address] Business (1) In 3 days In the event that this physician does not participate in your insurance network, please consult with your insurance company to find a nearby participating provider. Patient Education Materials: Jenise, Adult A MESSAGE TO ALL PATIENTS REGARDING OPIOIDS PRESCRIPTION OPIOIDS: WHAT YOU NEED TO KNOW Prescription opioids can be used to help relieve tbimowpu-sw-waqlhg pain and are often prescribed following a [...] be struggling with addiction, tell your health personal care assistant and ask for guidance or call [facility]?S National Helpline at 7-973-131-JOYQ. h Source: [facility] (more content not included)... Normal [facility] U BetaHcg Qualon 12-18-2020 HCG.beta subunit (U) [Moles/Vol] Negative Normal [facility] Comment on above: Performed By: #### 2 3400495 ####[facility] [address] [place] [address] UA With Cult Reflexon 2020 Bacteria LM Ql (Urine sed) 3+ /HPF Abnormal Trace [facility] Comment on above: Performed By: #### 1 4894939, 4273039 ####[facility] [address] [place] [address] Bilirubin Ql (U) Negative Normal Negative [facility] Comment on above: Performed By: #### 1 1725458, 9763220 ####[facility] [address] [place] [address] Clarity (U) SL CLOUDY Abnormal Clear [facility] Comment on above: Performed By: #### 1 5594398, 6095848 ####[facility] [address] [place] [address] Color (U) YELLOW Normal Yellow [facility] Comment on above: Performed By: #### 1 5998097, 9653373 ####[facility] [address] [place] [address] Crystals LM Ql (Urine sed) Present Normal [facility] Comment on above: Performed By: #### 1 8875704, 7895239 ####[facility] [address] [place] [address] Epithelial cells.squamous LM.HPF (Urine sed) [#/Area] 0-2 Normal 0-2 [facility] Comment on above: Performed By: #### 1 4224641, 1553849 ####[facility] [address] [place] [address] Glucose Test strip (U) [Mass/Vol] Negative Normal Negative [facility] Comment on above: Performed By: #### 1 5370306, 2559872 ####[facility] [address] [place] [address] Hemoglobin Ql (U) Negative Normal Negative [facility] Comment on above: Performed By: #### 1 4322346, 8898430 ####[facility] [address] [place] [address] Ketones (U) [Mass/Vol] Negative Normal Negative [facility] Comment on above: Performed By: #### 1 0184284, 4677539 ####[facility] [address] [place] [address] [place].plasma/[place]. RBC (Bld) [Mass ratio] 0-3 Normal 0-3 [facility] Comment on above: Performed By: #### 1 7433247, 9847534 ####[facility] [address] [place] [address] Mucus Ql (Urine sed) 1+ Normal Fish [facility] Comment on above: Performed By: #### 1 2855122, 9040734 ####[facility] [address] [place] [address] Nitrite Ql (U) Negative Normal Negative [facility] Comment on above: Performed By: #### 1 6514905, 8756611 ####[facility] [address] [place] [address] pH (U) 7.0 [pH] Invalid Interpretation Code 5.0-9.0 [facility] Comment on above: Performed By: #### 1 9079838, 7462219 ####[address] [address] Protein (U) [Mass/Vol] Negative Normal Negative [facility] Comment on above: Performed By: #### 1 3249126, 8747275 ####[address] [address] Specific gravity (U) [Rel density] 1.020 Invalid Interpretation Code 1.005-1.030 [facility] Comment on above: Performed By: #### 1 8629165, 4949533 ####[address] [address] Type of Urine collection method Clean Catch Normal [facility] Comment on above: Performed By: #### 1 8709891, 3088862 ####[address] [address] Urobilinogen Qn (U) 0.2 {Tg'U}/dL Normal 0.0-1.0 [facility] Comment on above: Performed By: #### 1 3407451, 7201207 ####[address] [address] WBC Auto Ql (U) Negative Normal Negative [facility] Comment on above: Performed By: #### 1 4906526, 7143869 ####[address] [address] WBC LM.HPF (Urine sed) [#/Area] 0-5 Normal 0-5 [facility] Comment on above: Performed By: #### 1 1831159, 7959734 ####[address] [address] Social History Date Type Detail Facility Start: 03-18-2022 End: 12-30-2022 Sex Assigned At [facility] Start: 03-18-2022 End: 04-13-2023 Alcohol intake Ex-drinker (finding) [facility] Start: 03-18-2022 End: 12-30-2022 History of Social function [facility] Start: 02-13-2022 End: 02-23-2022 Exposure to SARS-CoV-2 (event) Yes [facility] Start: 11-12-2021 Alcohol intake Current drinke r of alcohol (finding) [facility] Start: 11-12-2021 History SDOH Alcohol Comment Not weekly [facility] Start: 09-15-2021 End: 12-01-2023 Tobacco smoking status NHIS Never smoked tobacco [facility] Start: 09-15-2021 End: 03-18-2022 Tobacco use and exposure Smokeless tobacco non-user [facility] Start: 09-05-2021 End: 03-26-2022 Exposure to SARS-CoV-2 (event) Not sure [facility] Start: 1990 Sex Assigned At Not on file [facility] Start: 1990 Sex Assigned At Female F [facility] Tobacco smoking consumption unknown [facility] Other Phone (unformatted): [phone] Adult Depression Screening Assessment 0 [facility] Vital Signs Date Time Vital Sign Value Performing Clinician Facility 12-01-2023 10:47-0400 Body temperature 98.5 [degF] PHYSICIAN NO [facility] 12-01-2023 10:47-0400 Diastolic blood pressure 71 mm[Hg] PHYSICIAN NO [facility] 12-01-2023 10:47-0400 Heart rate 72 /min PHYSICIAN NO [facility] 12-01-2023 10:47-0400 Respiratory rate 18 /min PHYSICIAN NO [facility] 12-01-2023 10:47-0400 SaO2% (BldA) [Mass fraction] 97 % PHYSICIAN NO [facility] 12-01-2023 10:47-0400 Systolic blood pressure 121 mm[Hg] PHYSICIAN [facility] 12-01-2023 08:54-0400 Body height 167.64 cm PHYSICIAN NO [facility] 12-01-2023 08:54-0400 Body weight 100.3 kg PHYSICIAN KORY COSTA [facility] 05-05-2023 15:54-0500 Body height 165.[address] Work Phone: [facility] 04-13-2023 10:23-0500 Body height 165.1 cm Jona Bermudez MD Work Phone: [facility] 04-13-2023 10:23-0500 Body weight 94.35 kg Jona Bermudez MD Work Phone: [facility] 12-30-2022 13:46-0400 Body height 165.[address] Work Phone: [facility] 12-30-2022 13:46-0400 Body weight 96.[address] Work Phone: [facility] 06-09-2022 09:24-0500 Body height 165.[address] Work Phone: [facility] 06-09-2022 09:24-0500 Body weight 118.[address] Work Phone: [facility] 03-18-2022 13:36-0400 Body height 165.1 cm Pacc 5 Work Phone: [facility] 03-18-2022 13:36-0400 Body temperature 97.39 [degF] Pacc 5 Work Phone: [facility] 03-18-2022 13:36-0400 Body weight 143.02 kg Pacc 5 Work Phone: [facility] 03-18-2022 13:36-0400 Diastolic blood pressure 81 mm[Hg] Pacc 5 Work Phone: [facility] 03-18-2022 13:36-0400 Heart rate 88 /min Pacc 5 Work Phone: [facility] 03-18-2022 13:36-0400 SaO2% (BldA) [Mass fraction] 97 % Pacc 5 Work Phone: [facility] 03-18-2022 13:36-0400 Systolic blood pressure 133 mm[Hg] [facility] 5 Work Phone: [facility] 03-18-2022 11:10-0400 Body height 165.5 cm Jona Bermudez MD Work Phone: [facility] 03-18-2022 11:10-0400 Body weight 141.98 kg Jona Bermudez MD Work Phone: [facility] 03-18-2022 11:10-0400 Diastolic blood pressure 76 mm[Hg] Jona Bermudez MD Work Phone: [facility] 03-18-2022 11:10-0400 Heart rate 78 /min Jona Bermudez MD Work Phone: [facility] 03-18-2022 11:10-0400 Systolic blood pressure 134 mm[Hg] Jona Bermudez MD Work Phone: [facility] 02-08-2022 15:57-0400 Body height 165.1 cm Marco A Hoy Other Phone: [facility] Other Phone (unformatted): [phone] 02-08-2022 15:57-0400 Body temperature 97.88 [degF] Marco A Hoy Other Phone: [facility] Other Phone (unformatted): [phone] 02-08-2022 15:57-0400 Body weight 150 kg Marco A Hoy Other Phone: [facility] Other Phone (unformatted): [phone] 02-08-2022 15:57-0400 Diastolic blood pressure 78 mm[Hg] Marco A Hoy Other Phone: [facility] Other Phone (unformatted): [phone] 02-08-2022 15:57-0400 Heart rate 77 /min Marco A Hoy Other Phone: [facility] Other Phone (unformatted): [phone] 02-08-2022 15:57-0400 Respiratory rate 20 /min Marco A Hoy Other Phone: [facility] Other Phone (unformatted): [phone] 02-08-2022 15:57-0400 SaO2% (BldA) [Mass fraction] 97 % Marco A Hoy Other Phone: [facility] Other Phone (unformatted): [phone] 02-08-2022 15:57-0400 Systolic blood pressure 143 mm[Hg] Marco A Hoy Other Phone: [facility] Other Phone (unformatted): [phone] 12-01-2021 09:31-0400 Body height 167.[address] [facility] 12-01-2021 09:31-0400 Body weight 149.[address] [facility] 11-26-2021 13:50-0400 Diastolic blood pressure 84 mm[Hg] Mulugeta Salmon MD Work Phone: [facility] 11-26-2021 13:50-0400 Heart rate 76 /min Mulugeta Salmon MD Work Phone: [facility] 11-26-2021 13:50-0400 Respiratory rate 15 /min Mulugeta Salmon MD Work Phone: [facility] 11-26-2021 13:50-0400 SaO2% (BldA) [Mass fraction] 95 % Mulugeta Salmon MD Work Phone: [facility] 11-26-2021 13:50-0400 Systolic blood pressure 127 mm[Hg] Mulugeta Salmon MD Work Phone: [facility] 11-26-2021 13:30-0400 Body temperature 97 [degF] Mulugeta Salmon MD Work Phone: [facility] 11-12-2021 15:29-0400 Body height 167.6 cm [facility] 11-12-2021 15:29-0400 Body weight 148.96 kg [facility] 11-07-2021 09:23-0400 Body weight 148.78 kg Danny Cristina DO Work Phone: [facility] 10-27-2021 17:25-0400 Body height 165.1 cm Myron Jacome Other [facility] Other 10-27-2021 17:25-0400 Body mass index (BMI) [Ratio] 55.74 kg/m2 Myron Jacome Other [facility] Other 10-27-2021 17:25-0400 Body temperature 97.8 [degF] Myron Jacome Other [facility] Other 10-27-2021 17:25-0400 Body weight 151.96 kg Myron Jacome Other [facility] Other 10-27-2021 17:25-0400 SaO2% (BldA) [Mass fraction] 97 % Myron Jacome Other [facility] Other 09-15-2021 14:13-0400 Body height 167.2 cm Jona Bermudez MD Work Phone: [facility] 09-15-2021 14:13-0400 Body weight 152.86 kg Jona Bermudez MD Work Phone: [facility] 09-15-2021 14:13-0400 Diastolic blood pressure 86 mm[Hg] Jona Bermudez MD Work Phone: [facility] 09-15-2021 14:13-0400 Heart rate 92 /min Jona Bermudez MD Work Phone: [facility] 09-15-2021 14:13-0400 Systolic blood pressure 140 mm[Hg] Jona Bermudez MD Work Phone: [facility] Clinical Notes 12-20-2020 to 05-05-[address] - 05/05/2023 3:54 PM Jona Adams MD - 04/13/2023 10:20 AM ESTPatient Bita Lei RD - 12/30/2022 1:16 PM EDTPatient Instructions Note Date & Type Note Facility 05-05-2023 Note HNO ID: [id number] Author: Bita Vigil RD Service: ? Author Type: Registered Dietitian Type: Progress Notes Filed: 05/05/2023 5:03 PM Note Text: [facility] Nutrition Therapy: Virtual Consult - Re-assessment I have communicated my name and active licensure. The patient?s identity and physical location were verified at the time of this visit. Either the patient or their legal risk control field representative has been informed of the risks [...] Capsule with 45 mg Iron AND additional 3993-0835 mg per day Calcium Citrate 5. 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 Exercise: strive for daily activity. Increase as tolerated to goal of 200 minutes/week with combination of cardio and strength training exercise. 6. Practice mindful eating habits-take small portions, eat slowly, chew thoroughly Actions to implement interventions: see assessment Diet History: Breakfast - protein shake (20 gm protein powder, [employer] milk +/- PB2) OR eggs, breakfast meat [...] Physical limitations affect (more content not included)... [facility] 05-05-[address] - [...] Capsule with 45 mg Iron AND additional 4343-7070 mg per day Calcium Citrate 5. Exercise: [...] minutes documented in this encounter [facility] 05-05-2023 History of Present illness Narrative [facility] Nutrition Therapy: Virtual Consult - Re-assessment I have communicated my name and active licensure. The patient s identity and physical location were verified at the time of this visit. Either the patient or their legal risk control field representative has been informed of the risks [...] Capsule with 45 mg Iron AND additional 7495-8615 mg per day Calcium Citrate 5. 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 Exercise: strive for daily activity. Increase as tolerated to goal of 200 minutes/week with combination of cardio and strength training exercise. 6. Practice mindful eating habits-take small portions, eat slowly, chew thoroughly Actions to implement interventions: see assessment Diet History: Breakfast - protein shake (20 gm protein powder, [employer] milk +/- PB2) OR eggs, breakfast meat [...] PAGER: documented in this encounter [facility] 04-13-2023 Note HNO ID: [id number] Author: Jona Johns MD Service: ? Author Type: Physician Type: Progress Notes Filed: 04/13/2023 10:55 AM Note Text: Metabolic Surgery Postoperative Virtual Clinic Visit Name: Funmilayo Conway I have communicated my name and active licensure. The patient's identity and physical location were verified at the time of this visit. Either the patient or their legal risk control field representative has been informed of the risks [...] next week Jona Cormier MD, FACS, GABI checker and packer [facility] Bariatric Fellowship [employer] laparoscopic Surgery Bariatric and Metabolic [place] [facility] 04-13-2023 History of Present illness Narrative Images from the original note were not included. Metabolic Surgery Postoperative Virtual Clinic Visit Name: Funmilayo Conway I have communicated my name and active licensure. The patient's identity and physical location were verified at the time of this visit. Either the patient or their legal risk control field representative has been informed of the risks [...] next week Jona Cormier MD, FACS, GABI checker and packer [facility] Bariatric Fellowship [employer] Install[employer] laparoscopic Surgery Bariatric and Metabolic [place] documented in this encounter [facility] 12-30-2022 Note HNO ID: [id number] Author: Bita Vigil RD Service: ? Author [...] states doing well with no current concerns. 7358-8785 calories/day - advancing appropriately 80-100 protein intake/day - meeting needs 64+ fluid intake/day - meeting needs Taking all recommended vitamin/minerals from Bariatric Fusion 1/day MVI with 45 mg Fe, 600 mg Ca citrated BID, and biotin. No new labs. Resting Metabolic Rate: 1722 Energy needs for weight loss 5366-0320 (15-20 kcals/kg CBW) Protein needs: 85 grams [...] Multivitamin Capsule with 45 mg Iron AND 9841-2370 mg per day Calcium Citrate 5. Exercise: [...] 25 minutes - Group Bita Vigil RD [facility] 12-30-[address] - [...] Multivitamin Capsule with 45 mg Iron AND 0667-5751 mg per day Calcium Citrate 5. Exercise: strive for daily activity. Increase as tolerated to goal of 200 minutes/week with combination of cardio and strength training exercise. 6. Practice mindful eating habits-take small portions, eat slowly, chew thoroughly documented in this encounter [facility] 12-30-2022 History of Present illness Narrative [...] states doing well with no current concerns. 1371-5399 calories/day - advancing appropriately 80-100 protein intake/day - meeting needs 64+ fluid intake/day - meeting needs Taking all recommended vitamin/minerals from Bariatric Fusion 1/day MVI with 45 mg Fe, 600 mg Ca citrated BID, and biotin. No new labs. Resting Metabolic Rate: 1722 Energy needs for weight loss 8338-1507 (15-20 kcals/kg CBW) Protein needs: 85 grams [...] Multivitamin Capsule with 45 mg Iron AND 8543-6512 mg per day Calcium Citrate 5. Exercise: [...] RD documented in this encounter [facility] 09-09-2022 Note HNO ID: [id number] Author: Bita Vigil RD Service: ? Author [...] Rate: 1889 Energy needs for weight loss 3709-9132 (10-15 kcals/kg CBW) Protein needs: 85 grams [...] 32 minutes - Group Bita Vigil RD [facility] 06-09-2022 Note HNO ID: [id number] Author: Bita Vigil RD Service: ? Author Type: Registered Dietitian Type: Progress Notes Filed: 06/09/2022 10:17 AM Note Text: [facility] Nutrition Therapy: Virtual Consult - Re-assessment [...] mg Iron and Calcium Citrate (total of 5930-4079 mg/day) * take calcium citrate separately from [...] Rate: 1992 Energy needs for weight loss 0119-0450 (10-15 kcals/kg CBW) Protein needs: 85 grams [...] in the AM, 2 in the PM) www.bariatricfusion.Advanced Catheter Therapies - [employer] Health: 1 Bariatric Multivitamin and Calcium Citrate (total of 9947-6076 mg/day) * take calcium citrate separately from Multivitamin with iron at least 2 hours apart and 4 hours apart from additional calcium www.[employer] - Bariatric Choice: 4 Complete Multivitamins (chewables) per day Www.bariatricchoice.Advanced Catheter Therapies - Bariatric Advantage: 2 Multivitamins and 3 Calcium Citrate Chewables per day * take calcium citrate separately from Multivitamin with iron at least 2 hours apart and 4 hours apart from additional calcium Www.bariatricadvantage.Advanced Catheter Therapies 2. Protein goal: 85 grams protein/day 3. [...] veggie OR chili Snack - none OR costa rican yogurt Dinner - same as lunch Snack [...] 1-3 days/week) Anthropometrics: (more content not included)... [facility] 06-09-[address] - [...] mg Iron and Calcium Citrate (total of 4998-5474 mg/day) * take calcium citrate separately from [...] lbs) documented in this encounter [facility] 06-09-2022 History of Present illness Narrative [facility] Nutrition Therapy: Virtual Consult - Re-assessment [...] mg Iron and Calcium Citrate (total of 3303-6284 mg/day) * take calcium citrate separately from [...] Rate: 1992 Energy needs for weight loss 0277-5354 (10-15 kcals/kg CBW) Protein needs: 85 grams [...] in the AM, 2 in the PM) www.bariatricfusion.Advanced Catheter Therapies - [employer] Health: 1 Bariatric Multivitamin and Calcium Citrate (total of 6953-0064 mg/day) * take calcium citrate separately from Multivitamin with iron at least 2 hours apart and 4 hours apart from additional calcium www.[employer] - Bariatric Choice: 4 Complete Multivitamins (chewables) per day Www.[employer].Advanced Catheter Therapies - Bariatric Advantage: 2 Multivitamins and 3 Calcium Citrate Chewables per day * take calcium citrate separately from Multivitamin with iron at least 2 hours apart and 4 hours apart from additional calcium Www.bariatricadBRCK Incage.Advanced Catheter Therapies 2. Protein goal: 85 grams protein/day 3. [...] veggie OR chili Snack - none OR costa rican yogurt Dinner - same as lunch Snack [...] PAGER: documented in this encounter [facility] 05-17-2022 Note HNO ID: [id number] Author: Louise Tobin, PhD Service: ? Author Type: Psychologist Type: Progress Notes Filed: 05/18/2022 8:58 AM Note Text: [facility] DEPARTMENT OF PSYCHIATRY AND PSYCHOLOGY/[facility] Bariatric Behavioral Services Progress Note May 17, 2022 Billing codes: FAEY Tobin CPT Code: 50842 Brief Emotional/Behavioral Assessment with scoring/documentation [id number] Virtual GROUP PSYCHOTHERAPY Time initiated session: 8:30 AM to 9:30 AM Index Surgery Date of Surgery: 03/26/22 Surgeon: Dr. Cormier. Surgical Procedure: gastric bypass Current weight: 283 pounds Psychologist: Piedad Pt was seen in a virtual group. Participants were given the opportunity to discuss their experience since surgery and ask questions of other group members. The group family practice medical doctor addressed questions and concerns related to psychological [...] hoped. She was able to navigate a Memol[place] republican well - I felt normal. Patient [...] team Louise Tobin, PhD, RD, LD, CDCES ACSM-CEP, Psychologist [facility] 05-07-2022 History of Present illness Narrative Metabolic Surgery Postoperative Virtual Clinic Visit Name: Funmilayo Conway This visit was performed virtually via Zoom technology due to the COVID-19 epidemic as an effort to protect patients and minimize exposure.? Virtual Visit (Audio/Visual) I have discussed the nature of this visit with the patient which will occur via [facility] (Phone, Virtual Visit) and she agrees [...] & Bariatric Surgery Fellow Bariatric & Metabolic [place] [facility] STAFF ATTESTATION: I have reviewed the [...] which included preparing to see the patient, [id number] patient care, completing clinical documentation, obtaining and/or [...] MD documented in this encounter [facility] 04-08-2022 History of Present illness Narrative BARIATRIC SURGERY CLINIC FOLLOW UP NOTE Clinic Date: 04/08/2022 Funmilayo Conway, 31 year old [address] [facility] [address] This visit was performed virtually (phone conversation) [...] 03/18/22: 143 kg (315 lb 4.8 oz). [place] weight: 68.5 kg (150 lb 15.1 oz) [...] rashes or skin changes. PHYSICAL EXAM: PHYSICAL EXAMINATION:[facility] 03/16/2021 GENERAL: No apparent distress. Pt is [...] Surgery documented in this encounter [facility] 03-18-2022 History of Present illness Narrative BARIATRIC SURGERY PREOPERATIVE VISIT NOTE Name: Funmilayo Conway Medical Record: [id number] Encounter No.: [id number] Funmilayo Conway is a 31 year old [...] which included preparing to see the patient, [id number] patient care, completing clinical documentation, obtaining and/or reviewing separately obtained history, counseling and educating the patient/family/caregiver, and ordering medications, tests, or procedures. Prescriptions were explained and provided to the patient. Jona Bermudez MD Advanced Laparoscopic and Bariatric Surgery documented in this encounter [facility] 03-18-2022 Instructions Kwame Rodriguez APRN.DUTY MANAGER - 03/18/2022 2:08 PM EDT PATIENT PREOPERATIVE INSTRUCTIONS Jerardo Johns* has scheduled you for your procedure at this surgery center: [facility] Scheduling Office: [phone] --[address] [place] [address]. Please read below carefully for your personalized [...] Procedures: - YOU MUST HAVE A RESPONSIBLE DOUGHMAKER TAKE YOU HOME. A PROPERTY ASSESSMENT MONITOR OR FIELD SERVICE REPRESENTATIVE CANNOT BE MADE A RESPONSIBLE DOUGHMAKER. - We recommend that a responsible person [...] call the Wednesday before. Your surgeon s dental scheduler will tell you what time to call the office. - If you have not reached the departmental dental scheduler by 5 P.M., call [phone] after 5 P.M. the day before your surgery. Please be aware that emergency situations arise, which may delay or change your surgical time. If this happens, we will notify you as soon as possible and regret any inconvenience. If you already have an Advance Directive, please fax a copy to [phone] or email to for it to be [...] APRN.DNP documented in this encounter [facility] 03-18-2022 History and physical note HISTORY [...] fevers. Neuro: No history of TIA's, stroke, PUBLIC RELATIONS REPRESENTATIVE tumor, impaired sensorium, hemiplegia, paraplegia or quadraplegia. No neurological symptoms or problems. Respiratory: No history of current cough or dyspnea, or pneumonia in the past 6 weeks. No history of respiratory/pulmonary symptoms or problems. Cardiovascular: No history of HTN requiring medication, no history of angina, CHF, [place], cardiac surgery or stents. Denies rest pain, [...] or incontinence,, stones or chronic kidney disease PUBLIC HEALTH ENGINEER: Negative for abnormal vaginal bleeding, abnormal vaginal [...] PM documented in this encounter [facility] 03-13-2022 Miscellaneous Notes BMI SPECIALTY CARE [...] RN documented in this encounter [facility] 03-10-[address] - [...] fish, low fat dairy - cottage cheese, Norwegian yogurt, light yogurt, cheese, ricotta cheese, nuts, [...] Calcium Citrate twice a day (total of 9017-7342 mg/day) * take calcium citrate separately from Multivitamin with iron at least 2 hours apart and 4 hours apart from additional calcium www.procarenow.Advanced Catheter Therapies - Bariatric Choice: 4 complete multivitamins (chewable) [...] op documented in this encounter [facility] 03-10-2022 History of Present illness Narrative [...] fish, low fat dairy - cottage cheese, Norwegian yogurt, light yogurt, cheese, ricotta cheese, nuts, [...] - Celebrate: multiple options- look on website Www.TALON THERAPEUTICSrateTagMans.Advanced Catheter Therapies - [employer] Health: 1 Multivitamin and Calcium Citrate twice a day (total of 8639-7290 mg/day) * take calcium citrate separately from Multivitamin with iron at least 2 hours apart and 4 hours apart from additional calcium www.[employer] - Bariatric Choice: 4 complete multivitamins (chewables) per day Www.[email or web address] - Bariatric Advantage: 2 Multivitamins and 3 Calcium Citrate Chewables per day * take calcium citrate separately from Multivitamin with iron at least 2 hours apart and 4 hours apart from additional calcium www.bariatricadBRCK Incage.Advanced Catheter Therapies B complex with at least 75 mg [...] fish, low fat dairy - cottage cheese, Norwegian yogurt, light yogurt, cheese, ricotta cheese, nuts, [...] Calcium Citrate twice a day (total of 5876-7702 mg/day) * take calcium citrate separately from Multivitamin with iron at least 2 hours apart and 4 hours apart from additional calcium www.[employer].Advanced Catheter Therapies - Bariatric Choice: 4 complete multivitamins (chewable) per day Www.[email or web address] - Bariatric Advantage: 2 Multivitamins and 3 Calcium Citrate Chewable per day * take calcium citrate separately from Multivitamin with iron at least 2 hours apart and 4 hours apart from additional calcium www.bariatricadCortera.Advanced Catheter Therapies B complex with at least 75 mg [...] RDN, JOSE, SARAH documented in this encounter [facility] 12-23-2021 Miscellaneous Notes The following approved [...] DO documented in this encounter [facility] 12-03-2021 Nurse Note EKG completed and reviewed; documented in this encounter [facility] 12-01-2021 History of Present illness Narrative [...] in the AM, 2 in the PM) www.bariatricfusion.Advanced Catheter Therapies - [employer] Health: 1 Bariatric Multivitamin and Calcium Citrate (total of 1891-1383 mg/day) * take calcium citrate separately from Multivitamin with iron at least 2 hours apart and 4 hours apart from additional calcium www.[employer] - Bariatric Choice: 4 Complete Multivitamins (chewables) per day Www.bariatricchoKisstixx.Advanced Catheter Therapies - Bariatric Advantage: 2 Multivitamins and 3 Calcium Citrate Chewables per day * take calcium citrate separately from Multivitamin with iron at least 2 hours apart and 4 hours apart from additional calcium Www.bariatricadvantage.Advanced Catheter Therapies Pre-op goal weight: 319 pounds Protein needs: [...] fish, low fat dairy - cottage cheese, Norwegian yogurt, light yogurt, cheese, ricotta cheese, nuts, [...] Calcium Citrate twice a day (total of 2820-5669 mg/day) * take calcium citrate separately from Multivitamin with iron at least 2 hours apart and 4 hours apart from additional calcium www.CNZZ.Advanced Catheter Therapies - Bariatric Choice: 4 complete multivitamins (chewables) per day Www.[email or web address] - Bariatric Advantage: 2 Multivitamins and 3 Calcium Citrate Chewables per day * take calcium citrate separately from Multivitamin with iron at least 2 hours apart and 4 hours apart from additional calcium www.bariatricadBRCK Incage.Advanced Catheter Therapies B complex with at least 75 mg [...] MS,RD,CSOWM,LD documented in this encounter [facility] 11-28-2021 Note HNO ID: [id number] Author: Keira Salvador RDMS, RVT Service: Radiology Author Type: Electric Relay Tester Type: Progress Notes Filed: 11/28/2021 1:52 PM [...] RDMS, RVT November 28, 2021 1:52 PM [facility] 11-28-2021 History of Present illness Narrative Radiology [...] PM documented in this encounter [facility] 11-28-2021 Note HNO ID: [id number] Author: RT Leann(R) Service: ? Author Type: [...] RT Leann(R) November 28, 2021 12:58 PM [facility] 11-28-2021 History of Present illness Narrative Radiology [...] PM documented in this encounter [facility] 11-26-2021 History and physical note UPDATED [...] Pcp This is a virtual visit using [employer] video visit. It required patient-provider interaction for [...] fevers. Neurological: No history of TIA's, stroke, PUBLIC RELATIONS REPRESENTATIVE tumor, impaired sensorium, hemiplegia, paraplegia or quadraplegia. No neurological symptoms or problems. Respiratory: No history of current cough or dyspnea, or pneumonia in the past 6 weeks. No history of respiratory/pulmonary symptoms or problems. Cardiovascular: No history of HTN requiring medication, no history of angina, CHF, [place], cardiac surgery or stents. Denies rest pain, [...] > 1 time per night or hematuria. PUBLIC HEALTH ENGINEER: Negative for abnormal vaginal bleeding, abnormal vaginal [...] or any previous visit (from the past 35424 hour(s)). Assessment Morbidly obese (HCC) Assessment: Body [...] or younger Non-male patient STOP-Bang Score: 3 [id number] Score: Age: <65 Sex: female CHF history: No Hypertension history: No Stroke/TIA/thromboembolism history: No Vascular disease history: No Diabetes history: No [id number] Score: 1 ASA Class: 3 ANESTHESIA FINDINGS: [...] #: documented in this encounter [facility] 11-12-2021 History and physical note Images from the original note were not included. HISTORY AND PHYSICAL EXAMINATION SERVICE DATE: 11/12/2021 SERVICE TIME: 3:26 PM PRIMARY CARE PHYSICIAN: No Pcp This is a virtual visit using [employer] video visit. It required patient-provider interaction for [...] fevers. Neurological: No history of TIA's, stroke, PUBLIC RELATIONS REPRESENTATIVE tumor, impaired sensorium, hemiplegia, paraplegia or quadraplegia. No neurological symptoms or problems. Respiratory: No history of current cough or dyspnea, or pneumonia in the past 6 weeks. No history of respiratory/pulmonary symptoms or problems. Cardiovascular: No history of HTN requiring medication, no history of angina, CHF, [place], cardiac surgery or stents. Denies rest pain, [...] > 1 time per night or hematuria. PUBLIC HEALTH ENGINEER: Negative for abnormal vaginal bleeding, abnormal vaginal [...] or any previous visit (from the past 26179 hour(s)). Assessment Morbidly obese (HCC) Assessment: Body [...] or younger Non-male patient STOP-Bang Score: 3 [id number] Score: Age: <65 Sex: female CHF history: No Hypertension history: No Stroke/TIA/thromboembolism history: No Vascular disease history: No Diabetes history: No [id number] Score: 1 ASA Class: 3 ANESTHESIA FINDINGS: [...] #: documented in this encounter [facility] 11-12-2021 Instructions Maria T Lares APRN.CNP - 11/12/2021 3:40 PM EDT PATIENT PREOPERATIVE INSTRUCTIONS Mulugeta Salmon MD has scheduled you for your procedure at this surgery center: [facility]: [phone] --[id number] [place] [address]. Please enter through the entrance closest to [...] Procedures: - YOU MUST HAVE A RESPONSIBLE DOUGHMAKER TAKE YOU HOME. A PROPERTY ASSESSMENT MONITOR OR FIELD SERVICE REPRESENTATIVE CANNOT BE MADE A RESPONSIBLE DOUGHMAKER. - We recommend that a responsible person [...] Advance Directive, please fax a copy to [phone] or email to for it to be [...] APRN.CNP documented in this encounter [facility] 11-07-2021 Instructions Danny Cristina DO - 11/07/2021 9:39 AM EDT Lovely Conway , Thank you for completing your visit today and we welcome you to the surgical program. We are sure that you will still have some additional questions and encourage you to reach out to your care provider via [employer] OR your Patient Navigator. Patient Navigators are [...] free to ask for a hard copy. [email or web address] en Once you complete all of the requirements (testing, consultations, diet, etc) from each provider, please call [phone] and select option #5 to initiate insurance approval. Please note scheduling information It is important to keep track of your scheduled appointments to ensure successful completion of our surgical program. Any missed appointments can further delay your pre-surgical work-up. [facility] does offer an opt-in option for getting text message appointment reminders. Please follow the link below if you would like to opt into this service. [email or web address] As part of your surgical work up, [...] these tests. You may call your local [facility] to get an appointment. - Lab work- No appointment is needed for this, you may complete at any [facility]. These are usually fasting labs, please be sure to fast (only water permitted) for 10-12 hours prior to the test. -Sleep Study- Please call [phone] or [phone] to get this appointment set up. -Sleep Medicine Consult- (Only needed if sleep study confirms sleep apnea) Please call [phone] or [phone] to schedule an appointment. -Upper GI/ EGD- Please call [phone] to schedule. -Provider follow up visit- Please call [phone] OR [phone] to schedule. Any testing that is completed outside of [facility] will need faxed to [phone]. We look forward to working with you on this journey, Danny Cristina DO documented in this encounter [facility] 11-07-2021 History of Present illness Narrative [...] healthy diet. Since the visit with the pool coordinator, eating less starch, not skipping meals, and eating more vegetables. Characterization of diet:Structured. History of eating disorders: negative Previous Obesity Treatments: commercial diets and dietitian. Exercise: Regular exercise: walking 3 times a week Barriers to regular exercise? 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 NO STOP BANG 1. Snoring : [...] PCOS Vitamin D deficiency No history of IL, COPD, asthma, peptic ulcer disease, dyslipidemia, hypothyroidism, [...] DO documented in this encounter [facility] 10-27-2021 Evaluation note Encounter Date Diagnosis [...] Patient care instructions given in writting by [facility] document. [employer] Other [id number] History of Present illness Narrative* Jagruti Escobar RN - 09/16/2021 9:47 AM EDT Opened in error. [facility] History of Present illness Narrative* Jona Bermudez MD - 09/15/2021 3:18 PM EDT Images from the original note were not included. [facility] DEPART[facility]GERY Jona Cormier M.D. [address] [place] [id number] NAME: [facility] NO: [id number] DATE OF SERVICE: September 15, 2021 This [...] which included preparing to see the patient, [id number] patient care, completing clinical documentation, obtaining and/or reviewing separately obtained history, performing a medically appropriate examination, counseling and educating the pat ient/family/caregiver and ordering medications, tests, or procedures. Jona Bermudez MD Advanced Laparoscopic and Bariatric Surgery [facility] NoteChief Complaint consultation for GI complaints [...] interferes with work or home: No. Drinks moreth intended: No., 12/19/2020 Substance Abuse - Denies Substance Abuse, 08/04/2021 Tobacco - No Risk, 04/12/2018 Never (less than 100 in lifetime) Tobacco Use:. Never Smokeless Tobacco Use:. Ready to change: No. Household tobacco concerns: No., 08/04/2021 Family History Depression: Mother. Rheumatoid arthritis: Sister. Immunizations Vaccine Date Status Com (more content not included)...[facility]:Result Comment: Electronically Signed By: EDY JOYCE, Elmira Infante\\.br\\Date and Time Signed: 08/04/21 17:32 [id number] NoteAdmission Information Admitting Physician - Neela LIM [...] voiding. [facility] --Other chronic medical conditions as outlined in note. Refer to d/c plan below: -Case reviewed and discussed with Dr. Graham who is in agreement with current d/c plan. Case will be reviewed and discussed with PCP or physician liaison MD once the hospital dowel inserting machine operator is able to reach him/her. [...] made to ensure accuracy, however, inadvertently computerized roll grinder operator mistakes may be present. Significant Findings CT [...] and spleen are not included within the [id number] of this renal stone protocol study. The [...] Ferreira DO 12/20/20 07:33: (more content not included)...[facility] HospitalComment on above:Result Comment: Electronically Signed By: Prerna CAVANAUGH\\.br\\Date and Time Signed: 12/20/20 10:28 EDT\\.br\\Electronically Co-Signed By: Jarred GRAHAM MD\\.br\\Date and Time Co-Signed: 01/13/21 08:22 [id number] NoteMicrobiology PROCEDURE: Blood Culture Charcoal [R1] SOURCE: Blood BODY SITE: Arm L COLLECTED DATE/TIME: 12/19/2020 17:25 EDT RECEIVED DATE/TIME: 12/19/2020 17:39 EDT START DATE/TIME: 12/19/2020 17:39 EDT FREE TEXT SOURCE: IV start Jhon DO, Shiva S. Jhon DO, Shiva S. FINAL REPORTS Final Report [] Verified Date/Time: 12/26/2020 18:00 EDT No growth at 7 days. Performing Locations R1: [facility] performed at: [facility], [address] [place] [address], [address] [place] [address], TdwmqoFayette County Memorial HospitalComment on above:Performed By: #### [id number] #### [facility] [address] [place] [address] [id number] NoteMicrobiology PROCEDURE: Blood Culture Charcoal [R1] SOURCE: Blood BODY SITE: Arm R COLLECTED DATE/TIME: 12/19/2020 17:30 EDT RECEIVED DATE/TIME: 12/19/2020 17:39 EDT START DATE/TIME: 12/19/2020 17:39 EDT FREE TEXT SOURCE: Shiva Ferreira DO S. Jhon DO, Shiva S. FINAL REPORTS Final Report [] Verified Date/Time: 12/26/2020 18:00 EDT No growth at 7 days. Performing Locations R1: This test was performed at: [facility], [address] [place] [address], [id number] [place] [address], MgtnqqFayette County Memorial HospitalComment on above:Performed By: #### [id number] ####[facility] [address] [place], [place] [phone] Marsha Flores entered room at this time [...] needs. Anticipated discharge home 12/20. CRM remains available.[facility] HospitalComment on above:Result Comment: Electronically Signed By: Janusz SOLIS, Sandra Houston\\Date and Time Signed: 12/20/20 08:26 [id number] Note Chief Complaint From home, patient complains [...] % (12/19/20:30:00) Lymph Auto: 29.4 % (12/19/20:30:00) Mclennan Auto: 7.8 % (12/19/20:30:00) Eos Auto: 0.6 % (12/19/20:30:00) Basophil Auto: 0.7 % (12/19/20:30:00) Neutro Absolute: 5.1 E9/L (12/19/20:30:00) Lymph Absolute: 2.5 E9/L (12/19/20:30:00) Mclennan Absolute: 0.7 E9/L (12/19/20:30:00) Eos Absolute: 0.1 [...] 14 mEq/L (12/19/20:30:00) Calcium Lvl: 8.9 mg/dL (12/19/20::) Alk Phos: 44 Int._Unit/L (12/19/20:30:00) ALT: 22 Int._Unit/L (12/19/20:30:00) AST: 18 Int._Unit/L (12/19/20:30:00) Total Protein: 8.2 gm/dL High (12/19/20:30:00) Albumin Lvl: 4.2 gm/dL (12/19/20:30:00) Globulin: 4 gm/dL (12/19/20:30:00) A/G Ratio: 1 Low (12/19/20:30:00) Bili Total: 0.8 mg/dL (12/19/20:30:00) Lactic Acid Lvl: 0.8 mmol/L (12/19/20:47:00) Troponin: 2.3 pg/mL Low (12/19/20:30:00) UA Spec Desc: Clean Catch (12/19/20 19:06:00) UA Color: Yellow2 (12/19/20 19:06:00) UA Clarity: Clear2 (12/19/20 19:06:00) UA Spec Grav: 1.025 (12/19/20 19:06:00) UA pH: 6.0 (12/19/20 19:06:00) UA Protein: Trace2 Abnormal (12/19/20 19:06:00) UA Glucose: NEGATIVE1 (07/15/21 19:06:00) UA Ketones: 1+ Abnormal (12/19/20 19:06:00) [...] See #1 3. L (more content not included)...[facility] HospitalComment on above: Result Comment: Electronically Signed By: Neela LIM DO\\Date and Time Signed: 12/20/20 05:29 EDTEvaluation note* Diagnosis Morbid obesity due to excess calories (HCC)- Primary History of delivery Other postprocedural status [facility] Diagnosis Pre-op exam- Primary Preoperative examination, unspecified [facility]* Diagnosis Morbid obesity (HCC)- Primary Morbid obesity documented in this encounter [facility] note* Diagnosis Class 3 severe obesity with body mass index (BMI) of 50.0 to 59.9 in adult, unspecified obesity type, unspecified whether serious comorbidity present (HCC)- Primary PCOS (polycystic ovarian syndrome) Polycystic ovaries documented in this encounter [facility] note* Diagnosis Preoperative examination- Primary Preoperative examination, unspecified Morbidly obese (HCC) Morbid obesity Fatty liver Other chronic nonalcoholic liver disease Anxiety and depression Dysthymic disorder [facility] Diagnosis Pre-op exam Preoperative examination, unspecified documented in this encounter [facility] note* Diagnosis Class 3 severe obesity with body mass index (BMI) of 50.0 to 59.9 in adult, unspecified obesity type, unspecified whether serious comorbidity present (HCC) [facility]* Diagnosis Class 3 severe obesity with body mass index (BMI) of 50.0 to 59.9 in adult, unspecified obesity type, unspecified whether serious comorbidity present (HCC)- Primary Dietary counseling and surveillance Dietary surveillance and counseling PCOS (polycystic ovarian syndrome) Polycystic ovaries documented in this encounter [facility] note* Diagnosis Class 3 severe obesity with body mass index (BMI) of 50.0 to 59.9 in adult, unspecified obesity type, unspecified whether serious comorbidity present (HCC) documented in this encounter [facility] note* Diagnosis Morbid obesity (HCC)- Primary Morbid obesity documented in this encounter [facility] noteNo assessment information availableChildren'S [facility] Work Phone: Evaluation note* Diagnosis BMI 50.0-59.9, adult (HCC)- Primary Body Mass Index 50.0-59.9, adult Dietary counseling Dietary surveillance and counseling Morbid obesity (HCC) Morbid obesity documented in this encounter [facility] note* Diagnosis Anxiety and depression Dysthymic disorder Morbid obesity (HCC) Morbid obesity documented in this encounter [facility] note* Diagnosis BMI 50.0-59.9, adult (HCC)- Primary Body Mass Index 50.0-59.9, adult PCOS (polycystic ovarian syndrome) Polycystic ovaries History of delivery Other postprocedural status Fatty liver Other chronic nonalcoholic liver disease Morbid obesity (HCC) Morbid obesity documented in this encounter [facility] note* Diagnosis Status post gastric bypass for obesity- Primary Bariatric surgery status Obesity, Class III, BMI 40-49.9 (morbid obesity) (HCC) Morbid obesity documented in this encounter [facility] note* Diagnosis History of Cathie-en-Y gastric bypass- Primary Bariatric surgery status [facility]* Diagnosis S/P gastric bypass- Primary Bariatric surgery status Impaired intestinal absorption Unspecified intestinal malabsorption Dietary counseling and surveillance Dietary surveillance and counseling documented in this encounter [facility] note* Diagnosis S/P gastric bypass- Primary Bariatric surgery status Dietary counseling and surveillance Dietary surveillance and counseling documented in this encounter [facility] note* Diagnosis S/P gastric bypass- Primary Bariatric surgery status documented in this encounter [facility] note* Diagnosis S/P gastric bypass- Primary Bariatric surgery status Impaired intestinal absorption Unspecified intestinal malabsorption Dietary counseling and surveillance Dietary surveillance and counseling documented in this encounter [facility] general Narrative - Reported* Type Description Date Medical History PCOS Medical History chronic depression Medical History anxiety Surgical History tonsillectomy and adenoidectomy x2 Surgical History wisdom teeth Surgical History cyst removal from left foot Surgical History nasal surgery Surgical History C section Hospitalization History see above [employer] Other Reason for referral (narrative)* Outpatient Procedure (Routine) - Pending Review Specialty Diagnoses / Procedures Referred By Vipin kunz Referred To Contact [facility] Diagnoses Morbid obesity due to excess calories (HCC) Procedures EGD BARIATRIC ESOPHAGOGASTRODUODENOSC OPY TRANSORAL DIAGNOSTIC Jona Johns MD [address] [id number] [facility] Disease [place] [phone] Referral ID Status Reason Start Date Expiration Date Visits Requested Visits Authorized [id number] Pending Review Auto-Generat ed Referral 09/29/2021 09/15/2022 1 1 [facility] for referral (narrative)* Outpatient Procedure (Routine) - Authorized Specialty Diagnoses / Procedures Referred By Vipin kunz Referred To Contact [facility] [employer] Diagnoses Pre-op exam Procedures EGD DIAGNOSTIC ESOPHAGOGASTRODUODENOSC OPY TRANSORAL [place] [address] [place] [address] [facility] Disease [address] [address] Referral ID Status Reason Start Date Expiration Date Visits Requested Visits Authorized [id number] Authorized Auto-Generat ed Referral 09/16/2021 09/16/2022 1 1 [facility] for referral (narrative)* Diagnostic Procedure Only [...] TIME W/IMAGE LIMITED Danny Cristina DO [address] [place] [address] [facility] Referral ID Status Reason Start Date Expiration Date Visits Requested Visits Authorized [id number] Pending Review Auto-Generat ed Referral 11/07/2021 12/07/2022 1 1 * Outpatient Procedure (Routine) - Pending Review Specialty Diagnoses / Procedures Referred By Indiraac t Referred To [facility] Diagnoses Class 3 severe obesity with body mass index (BMI) of 50.0 to 59.9 in adult, unspecified obesity type, unspecified whether serious comorbidity present (HCC) Procedures ECG COMPLETE ECG ROUTINE ECG W/LEAST 12 LDS W/I&R Danny Cristina DO [address] [place] [address] [facility] [place] [address] [place] [address] Referral ID Status Reason Start Date Expiration Date Visits Requested Visits Authorized [id number] Pending Review Auto-Generat ed Referral 11/07/2021 11/07/2022 1 1 [facility] for referral (narrative)* Outpatient Procedure (Routine) - Closed Specialty Diagnoses / Procedures Referred By Vipin t Referred To Contact [facility] Diagnoses Pre-op exam Procedures EGD DIAGNOSTIC ESOPHAGOGASTRODUODENOSC OPY TRANSORAL [place] [address] [place] [address] [facility] [place] [address] [place] [address] Referral ID Status Reason Start Date Expiration Date V isits Requested Visits Authorized [id number] Closed Auto-Generate d Referral 09/16/2021 09/16/2022 1 1 [facility] for referral (narrative)* Diagnostic Procedure Only [...] TIME W/IMAGE LIMITED Danny Cristina DO [address] [address] [facility] Referral ID Status Reason Start Date Expiration Date V isits Requested Visits Authorized [id number] Closed Auto-Generate d Referral 11/07/2021 12/07/2022 1 1 [facility] for visit Narrative* Outpatient Procedure (Routine) - Closed Specialty Diagnoses / Procedures Referred By Contac t Referred To Contact [facility] Diagnoses Pre-op exam Procedures EGD DIAGNOSTIC ESOPHAGOGASTRODUODENOSC OPY TRANSORAL [place] [address] [place] [phone] [facility] [place] [address] [place], [place] [id number] Referral ID Status Reason Start Date Expiration Date V isits Requested Visits Authorized [id number] Closed Auto-Generate d Referral 09/16/2021 09/16/2022 1 1 [facility] for visit Narrative* Diagnostic Procedure Only (Routine) - Closed Specialty Diagnoses / Procedures Referred By Contac t Referred To Contact [facility] Diagnoses Class 3 severe obesity with body mass index (BMI) of 50.0 to 59.9 in adult, unspecified obesity type, unspecified whether serious comorbidity present (HCC) Procedures US ABD RT UPPER QUADRANT US ABDOMINAL REAL TIME W/IMAGE LIMITED Danny Cristina, [address] [place] [address] [facility] Referral ID Status Reason Start Date Expiration Date V isits Requested Visits Authorized [id number] Closed Auto-Generate d Referral 11/07/2021 12/07/2022 1 1 [facility] Summary Purpose Family History No Family History Records FoundNo Family History Records FoundNo Family History Records FoundNo Family History Records FoundNo Family History Records FoundNo Family History Records FoundNo Family History Records FoundNo Family History Records Found Advance Directives Documents on File Type Date Recorded Patient Soil Tester Expl anation Advance Directive(s) 10/27/2021 6:10 PM Documents on File Type Date Recorded Patient Soil Tester Expl anation Advance Directive(s) 10/27/2021 6:10 PM Advance Directive Response Recorded Date/ Time Advance Directives No July 04, 2019 11:44am Chief Complaint and Reason for Visit Chief Complaint wellness Chief Complaint abd cramping, 8 wks preg Additional Source Comments INFORMATION SOURCE (unrecogn ized section and content) DATE CREATED AUTHOR 09/01/2021 [facility] DATE CREATED AUTHOR AUTHOR'S ORGANIZ ATION 11/13/2021 [facility] DATE CREATED AUTHOR AUTHOR'S ORGANIZ ATION 12/05/2021 [facility] DATE CREATED AUTHOR AUTHOR'S ORGANIZ ATION 01/08/2022 [facility] DATE CREATED AUTHOR AUTHOR'S ORGANIZ ATION 01/10/2022 [facility] DATE CREATED AUTHOR AUTHOR'S ORGANIZ ATION 02/13/2022 [facility] DATE CREATED AUTHOR AUTHOR'S ORGANIZ ATION 05/08/2023 [facility] DATE CREATED AUTHOR AUTHOR'S ORGANIZ ATION 11/27/2023 [facility] dical Specialists EPIC Source Comments (unrecognize d section and content) In the event this informatio n is protected by the Federal Confidentiality of Alcohol and Drug Abuse Patient Records regulations: The Federal rules restrict any use of the information to criminally investigate or prosecute any alcohol or drug abuse patient.[facility] Hospital[facility] the event this information is protected by the Federal Confidentiality of Alcohol and Drug Abuse Patient Records regulations: The Federal rules restrict any use of the information to criminally investigate or prosecute any alcohol or drug abuse patient.[facility] HospitalIn the event this information is protected by the Federal Confidentiality of Alcohol and Drug Abuse Patient Records regulations: The Federal rules restrict any use of the information to criminally investigate or prosecute any alcohol or drug abuse patient.[facility] HospitalIn the event this information is protected by the Federal Confidentiality of Alcohol and Drug Abuse Patient Records regulations: The Federal rules restrict any use of the information to criminally investigate or prosecute any alcohol or drug abuse patient.[facility] HospitalIn the event this information is protected by the Federal Confidentiality of Alcohol and Drug Abuse Patient Records regulations: The Federal rules restrict any use of the information to criminally investigate or prosecute any alcohol or drug abuse patient.[facility] HospitalIn the event this information is protected by the Federal Confidentiality of Alcohol and Drug Abuse Patient Records regulations: The Federal rules restrict any use of the information to criminally investigate or prosecute any alcohol or drug abuse patient.[facility] HospitalIn the event this information is protected by the Federal Confidentiality of Alcohol and Drug Abuse Patient Records regulations: The Federal rules restrict any use of the information to criminally investigate or prosecute any alcohol or drug abuse patient.[facility] HospitalIn the event this information is protected by the Federal Confidentiality of Alcohol and Drug Abuse Patient Records regulations: The Federal rules restrict any use of the information to criminally investigate or prosecute any alcohol or drug abuse patient.[facility] HospitalIn the event this information is protected by the Federal Confidentiality of Alcohol and Drug Abuse Patient Records regulations: The Federal rules restrict any use of the information to criminally investigate or prosecute any alcohol or drug abuse patient.[facility] HospitalIn the event this information is protected by the Federal Confidentiality of Alcohol and Drug Abuse Patient Records regulations: The Federal rules restrict any use of the information to criminally investigate or prosecute any alcohol or drug abuse patient.[facility] HospitalIn the event this information is protected by the Federal Confidentiality of Alcohol and Drug Abuse Patient Records regulations: The Federal rules restrict any use of the information to criminally investigate or prosecute any alcohol or drug abuse patient.[facility] HospitalIn the event this information is protected by the Federal Confidentiality of Alcohol and Drug Abuse Patient Records regulations: The Federal rules restrict any use of the information to criminally investigate or prosecute any alcohol or drug abuse patient.[facility] HospitalIn the event this information is protected by the Federal Confidentiality of Alcohol and Drug Abuse Patient Records regulations: The Federal rules restrict any use of the information to criminally investigate or prosecute any alcohol or drug abuse patient.[facility] HospitalIn the event this information is protected by the Federal Confidentiality of Alcohol and Drug Abuse Patient Records regulations: The Federal rules restrict any use of the information to criminally investigate or prosecute any alcohol or drug abuse patient.[facility] HospitalIn the event this information is protected by the Federal Confidentiality of Alcohol and Drug Abuse Patient Records regulations: The Federal rules restrict any use of the information to criminally investigate or prosecute any alcohol or drug abuse patient.[facility] HospitalIn the event this information is protected by the Federal Confidentiality of Alcohol and Drug Abuse Patient Records regulations: The Federal rules restrict any use of the information to criminally investigate or prosecute any alcohol or drug abuse patient.[facility] HospitalIn the event this information is protected by the Federal Confidentiality of Alcohol and Drug Abuse Patient Records regulations: The Federal rules restrict any use of the information to criminally investigate or prosecute any alcohol or drug abuse patient.[facility] HospitalIn the event this information is protected by the Federal Confidentiality of Alcohol and Drug Abuse Patient Records regulations: The Federal rules restrict any use of the information to criminally investigate or prosecute any alcohol or drug abuse patient.[facility] HospitalIn the event this information is protected by the Federal Confidentiality of Alcohol and Drug Abuse Patient Records regulations: The Federal rules restrict any use of the information to criminally investigate or prosecute any alcohol or drug abuse patient.[facility] HospitalIn the event this information is protected by the Federal Confidentiality of Alcohol and Drug Abuse Patient Records regulations: The Federal rules restrict any use of the information to criminally investigate or prosecute any alcohol or drug abuse patient.[facility] HospitalIn the event this information is protected by the Federal Confidentiality of Alcohol and Drug Abuse Patient Records regulations: The Federal rules restrict any use of the information to criminally investigate or prosecute any alcohol or drug abuse patient.[facility] HospitalIn the event this information is protected by the Federal Confidentiality of Alcohol and Drug Abuse Patient Records regulations: The Federal rules restrict any use of the information to criminally investigate or prosecute any alcohol or drug abuse patient.[facility] HospitalIn the event this information is protected by the Federal Confidentiality of Alcohol and Drug Abuse Patient Records regulations: The Federal rules restrict any use of the information to criminally investigate or prosecute any alcohol or drug abuse patient.[facility] HospitalIn the event this information is protected by the Federal Confidentiality of Alcohol and Drug Abuse Patient Records regulations: The Federal rules restrict any use of the information to criminally investigate or prosecute any alcohol or drug abuse patient.[facility] Reason for Visit (unrecogniz ed section and content) Reason Comments New Patient Reason Comments Obesity Reason Comments Anesthesia Consult Reason Comments Radiology XR Reason Onset Date Comments Patient Education 12/01/2021 Reassessment 12/01/2021 Reason Comments EKG Specialty Diagnoses / Procedures Referred By Contac t Referred To Contact [facility] [place] [employer] Diagnoses Class 3 severe obesity with body mass index (BMI) of 50.0 to 59.9 in adult, unspecified obesity type, unspecified whether serious comorbidity present (HCC) Procedures ECG COMPLETE ECG ROUTINE ECG W/LEAST 12 LDS W/I&R Danny Cristina, DO [address] [facility] [address] [place] [address] [facility] [place] [address] [place] [address] Referral ID Status Reason Start Date Expiration Date V isits Requested Visits Authorized [id number] Closed Auto-Generate d Referral 11/07/2021 11/07/2022 1 [...] Care Teams (unrecognized sec tion and content) Team Status: Active Member Role Status Dates PHYSICIAN NO FAMILY Primary Care Provider Active Team Status: Inactive Member Role Status Dates PHYSICIAN NO FAMILY Primary Care Provider Active Start: December 01, 2023 End: December 01, 2023 Alhaji Chauhan APRN Emergency Provider Active Start: December 01, 2023 End: December 01, 2023 Wind Commissioning Technician Relationship Specialty Start Date End Date Pcp, No PCP - General 10/27/21 Wind Commissioning Technician Relationship Specialty Start Date End Date Pcp, No PCP - General 10/27/21 Wind Commissioning Technician Relationship Specialty Start Date End Date Pcp, No PCP - General 10/27/21 Wind Commissioning Technician Relationship Specialty Start Date End Date Marco A Byrd MD [address] [place] [id number] PCP - General Family Practice 11/26/21 Wind Commissioning Technician Relationship Specialty Start Date End Date Marco A Byrd MD [address] [place] [facility] [address] PCP - General Family Practice 11/26/21 Wind Commissioning Technician Relationship Specialty Start Date End Date Marco A Byrd MD [address] [facility] [address] PCP - General Family Practice 11/26/21 Wind Commissioning Technician Relationship Specialty Start Date End Date Marco A Byrd MD [address] [facility] [place] [address] PCP - General Family Practice 11/26/21 Wind Commissioning Technician Relationship Specialty Start Date End Date Marco A Byrd MD [address] [facility] [address] PCP - General Family Practice 11/26/21 Wind Commissioning Technician Relationship Specialty Start Date End Date Marco A Byrd MD [address] [facility], [id number] PCP - General Family Practice 11/26/21 Wind Commissioning Technician Relationship Specialty Start Date End Date Marco A Byrd MD [address] [place] [facility] [address] PCP - General Family Practice 11/26/21 Team Status: Inactive Member Role Status Dates PHYSICIAN NO FAMILY Primary Care Provider Active Danis Tubbs , [facility] Attending Provider Active Team Status: Active Member Role Status Dates PHYSICIAN NO FAMILY Primary Care Provider Active Wind Commissioning Technician Relationship Specialty Start Date End Date Marco A Byrd MD [address] [facility] [place] [address] PCP - General Family Medicine 11/26/21 Wind Commissioning Technician Relationship Specialty Start Date End Date Marco A Byrd MD [address] [facility] [address] PCP - General Family Medicine 11/26/21 Wind Commissioning Technician Relationship Specialty Start Date End Date Marco A Byrd MD [address] [facility] [address] PCP - General Family Medicine 11/26/21 Wind Commissioning Technician Relationship Specialty Start Date End Date Marco A Byrd MD [address] [facility] [address] PCP - General Family Medicine 11/26/21 Wind Commissioning Technician Relationship Specialty Start Date End Date Marco A Byrd MD [address] [facility] [address] PCP - General Family Medicine 11/26/21 Wind Commissioning Technician Relationship Specialty Start Date End Date Marco A Byrd MD [address] [place] [facility] [address] PCP - General Family Medicine 11/26/21 Wind Commissioning Technician Relationship Specialty Start Date End Date Marco A Byrd MD [address] [place] [facility] [address] PCP - General Family Medicine 11/26/21 Wind Commissioning Technician Relationship Specialty Start Date End Date Marco A Byrd MD [address] [place] [facility] [address] PCP - General Family Medicine 11/26/21 Team Status: Inactive Member Role Status Dates PHYSICIAN NO FAMILY Primary Care Provider Active Start: December 01, 2023 End: December 01, 2023 Alhaji Chauhan APRN Emergency Provider Active Start: December 01, 2023 End: December 01, 2023 Goals (unrecognized section and content) Goals may [...] BE BASED ON THE PRIMARY CLINICAL RECORDS. [facility]. provides no warranty or guarantee of the accuracy or completeness of information in this document."
== END 2023-12-06 12:01 | disposition home or self-care (01) ==
LOC: US 12:01
PROVIDERS: Visit Provider Obstetrics & Gynecology
DX: O36.80X0 Pregnancy with inconclusive fetal viability, not applicable or unspecified (principal); Z3A.08 8 weeks gestation of pregnancy
CPT/HCPCS: 76817

== ENCOUNTER 2023-12-07 09:45 | Outpatient (OUT) | payer OTHER, SELFPAY ==
--- OUTSIDE RECORDS SUMMARY | 2023-12-07 10:04 | XMS_ITS ---
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 (E4) spontaneous Best Motor Response: (M6) obeys commands Best Verbal Response: (V5) oriented Amity Score: 15 Dontrell Assessment Qualifiers: patient not [...] Reviewedyes Electronic Signatures: Gertrudis Alberts (WILL) (Signed 04-Sep-2022 14:00) Entered: Risk Screens, Pain, Travel History, Chart Review, Scores, Past Medical History Authored: Quick Triage, Risk Screens, Pain, Travel History, Chart Review, Scores, Past Medical History Last Updated: 08-Feb-2022 14:00 by Gertrudis Ablerts (RN) Normal [facility] Covid-19 PCR (CVDTB)on 08 SARS-CoV-2 (COVID-19) RNA JONH+probe Ql (Unsp spec) Not detected Normal NOT DETECTED [facility] Comment on above: Result Comment: This test is not yet approved or cleared by the [place] FDA. When there are no FDA-approved or cleared tests available, and other criteria are met, FDA can make tests available under an emergency access mechanism called an Emergency Use Authorization (EUA). The EUA for this test is supported by the System Developer Associate Manager of Health and Human Service's (HHS's) declaration [...] consistent with SARS-CoV-2. Performed By: #### [facility] #### [facility] [address] [place] [address] Dr. Kerri Roberto Body fluid albumin measureme nt (mass/volume)Ordered By: Danis Tubbs on 01-05-2022 Albumin (Body fld) [Mass/Vol] 4.2 g/dL 3.2-5.5 [facility] Cholesterol in LDL Calc [Mas s/Vol]Ordered By: Danis Tubbs on 01-05-2022 Cholesterol in LDL [Mass/Vol] 140 mg/dL 0-100 [facility] Comment on above: LDL ATP III CLASSIFI CATION LDL less than 100 mg/dL Optimal LDL 100-129 mg/dL Near or above optimal LDL 130-159 mg/dL Borderline high LDL 160-189 mg/dL High LDL greater than 189 mg/dL Very high Cholesterol in VLDL Calc [Ma ss/Vol]Ordered By: Danis Tubbs on 01-05-2022 Cholesterol in VLDL [Mass/Vol] 33 mg/dL [facility] Complete Blood Count no refl exOrdered By: Danis Tubbs on 01-05-2022 Basophils (Bld) [#/Vol] 0.0 10*3/uL Normal 0.0-0.2 [facility] Comment on above: Result Comment: PERF ORMED BY: [place] [address] PATHOLOGIST [employer] KARLOS WALKER M.D. Performed By: #### L IPID, CMP, CHC CBC, TSH3 #### [address] Basophils/100 WBC (Bld) 0.8 % Normal . [facility] Comment on above: Performed By: #### L IPID, CMP, CHC CBC, TSH3 #### [facility] [address] [place] [address] Eosinophils (Bld) [#/Vol] 0.1 10*3/uL Normal 0.0-0.45 [facility] Comment on above: Performed By: #### L IPID, CMP, CHC CBC, TSH3 #### [address] Eosinophils/100 WBC (Bld) 2.2 % Normal . [facility] Comment on above: Performed By: #### L IPID, CMP, CHC CBC, TSH3 #### [facility] [address] [place] [address] Erythrocyte distribution width (RBC) [Ratio] 13.0 % Normal 11.9-15.3 [facility] Comment on above: Performed By: #### L IPID, CMP, CHC CBC, TSH3 #### [address] Hematocrit (Bld) [Volume fraction] 41.9 % Normal 34.0-46.4 [facility] Comment on above: Performed By: #### L IPID, CMP, CHC CBC, TSH3 #### [address] Hemoglobin (Bld) [Mass/Vol] 14.3 g/dL Normal 11.8-15.4 [facility] Comment on above: Performed By: #### L IPID, CMP, CHC CBC, TSH3 #### [address] Lymphocytes (Bld) [#/Vol] 2.4 10*3/uL Normal 1.00-4.8 [facility] Comment on above: Performed By: #### L IPID, CMP, CHC CBC, TSH3 #### [address] Lymphocytes/100 WBC (Bld) 47.4 % Normal . [facility] Comment on above: Performed By: #### L IPID, CMP, CHC CBC, TSH3 #### [address] MCH (RBC) [Entitic mass] 30.1 pg Normal 24.7-34.3 [facility] Comment on above: Performed By: #### L IPID, CMP, CHC CBC, TSH3 #### [address] MCV (RBC) [Entitic vol] 88.3 fL Normal 80-100 [facility] Comment on above: Performed By: #### L IPID, CMP, CHC CBC, TSH3 #### [address] Monocytes (Bld) [#/Vol] 0.3 10*3/uL Normal 0.0-0.8 [facility] Comment on above: Performed By: #### L IPID, CMP, CHC CBC, TSH3 #### [address] Monocytes/100 WBC (Bld) 6.6 % Normal . [facility] Comment on above: Performed By: #### L IPID, CMP, CHC CBC, TSH3 #### [place] [address] [place] Neutrophils (Bld) [#/Vol] 2.2 10*3/uL Normal 1.8-7.7 [facility] Comment on above: Performed By: #### L IPID, CMP, CHC CBC, TSH3 #### [place] [address] [place] Neutrophils/100 WBC (Bld) 43.0 % Normal . [facility] Comment on above: Performed By: #### L IPID, CMP, CHC CBC, TSH3 #### [address] Nucleated RBC/100 WBC (Bld) [Ratio] 0.1 % Normal 0-0.5 [facility] Comment on above: Performed By: #### L IPID, CMP, CHC CBC, TSH3 #### [address] Platelet mean volume (Bld) [Entitic vol] 9.0 fL Normal 6.3-10.7 [facility] Comment on above: Performed By: #### L IPID, CMP, CHC CBC, TSH3 #### [place] [address] [place] Platelets (Bld) [#/Vol] 207 10*3/uL Normal 150-450 [facility] Comment on above: Performed By: #### L IPID, CMP, CHC CBC, TSH3 #### [place] [address] [place] RBC (Bld) [#/Vol] 4.75 10*6/uL Normal 3.60-5.00 [facility] Comment on above: Performed By: #### L IPID, CMP, CHC CBC, TSH3 #### [place] [address] [place] WBC (Bld) [#/Vol] 5.1 10*3/uL Normal 4.5-11.0 [facility] Comment on above: Performed By: #### L IPID, CMP, CHC CBC, TSH3 #### [address] [place] [address] [place] Complete Blood Count no refl exon 01-05-2022 Mean Corpuscular HGB Conc 34.0 g/dL Normal 32.0-35.0 [facility] Comment on above: Performed By: #### L IPID, CMP, CHC CBC, TSH3 #### [address] Comprehensive Metabolic Pane barbara 01-05-2022 Albumin [Mass/Vol] 4.2 g/dL Normal 3.2-5.5 [facility] Comment on above: Performed By: #### L IPID, CMP, CHC CBC, TSH3 #### [address] ALT [Catalytic activity/Vol] 32 U/L Normal 10-60 [facility] Comment on above: Performed By: #### L IPID, CMP, CHC CBC, TSH3 #### [address] Estimated GFR ( Mariah > 60 [facility] Comment on above: Result Comment: GFR estimated reference range: According to KDOQI guidelines, <60 ml/min/1.73m2 is sufficient to diagnose a patient with chronic kidney disease. Performed By: #### L IPID, CMP, CHC CBC, TSH3 #### [address] Estimated GFR (Non- Am > 60 [facility] Comment on above: Performed By: #### L IPID, CMP, CHC CBC, TSH3 #### [address] Comprehensive Metabolic Pane lOrdered By: Danis Tubbs on 01-05-2022 Albumin/Globulin [Mass ratio] 1.6 {ratio} [facility] Comment on above: Performed By: #### L IPID, CMP, CHC CBC, TSH3 #### [address] ALP [Catalytic activity/Vol] 36 U/L Normal 32-92 [facility] Comment on above: Performed By: #### L IPID, CMP, CHC CBC, TSH3 #### [facility] [address] AST [Catalytic activity/Vol] 22 U/L Normal 10-42 [facility] Comment on above: Performed By: #### L IPID, CMP, CHC CBC, TSH3 #### [facility] [address] Bilirubin [Mass/Vol] 0.3 mg/dL Normal 0.3-1.2 [facility] Comment on above: Performed By: #### L IPID, CMP, CHC CBC, TSH3 #### [address] Calcium [Mass/Vol] 9.4 mg/dL Normal 8.2-10.2 [facility] Comment on above: Performed By: #### L IPID, CMP, CHC CBC, TSH3 #### [address] Chloride [Moles/Vol] 103 mmol/L Normal 95-114 [facility] Comment on above: Performed By: #### L IPID, CMP, CHC CBC, TSH3 #### [address] CO2 [Moles/Vol] 23.0 mmol/L Normal 22.0-30.0 [facility] Comment on above: Performed By: #### L IPID, CMP, CHC CBC, TSH3 #### [facility] [address] [place] [address] [place] Creatinine [Mass/Vol] 0.61 mg/dL Normal 0.44-1.03 [facility] Comment on above: Performed By: #### L IPID, CMP, CHC CBC, TSH3 #### [facility] [address] [place] [address] [place] Globulin (S) [Mass/Vol] 2.7 g/dL Normal [facility] Comment on above: Performed By: #### L IPID, CMP, CHC CBC, TSH3 #### [facility] [address] [place] [address] [place] Glucose [Mass/Vol] 108 mg/dL High 70-100 [facility] Comment on above: Result Comment: [place] om Glucose Reference Range is dependent on time and content of last meal. Glucose of more than 200 mg/dL in a nonstressed, ambulatory subject supports the diagnosis of Diabetes Mellitus. ADA recommended reference range Performed By: #### L IPID, CMP, CHC CBC, TSH3 #### [facility] [address] ADA recommended refe rence range Random Glucose Reference Range is dependent on time and content of last meal. Glucose of more than 200 mg/dL in a nonstressed, ambulatory subject supports the diagnosis of Diabetes Mellitus. Potassium [Moles/Vol] 4.1 mmol/L Normal 3.5-5.1 [facility] Comment on above: Performed By: #### L IPID, CMP, CHC CBC, TSH3 #### [facility] [address] Protein [Mass/Vol] 6.9 g/dL Normal 6.1-7.9 [facility] Comment on above: Performed By: #### L IPID, CMP, CHC CBC, TSH3 #### [facility] [address] Sodium [Moles/Vol] 136 mmol/L Normal 136-146 [facility] Comment on above: Performed By: #### L IPID, CMP, [facility] CBC, TSH3 #### [facility] [address] [place] [address] [place] Urea nitrogen [Mass/Vol] 12 mg/dL Normal 9-23 [facility] Comment on above: Performed By: #### L IPID, CMP, CHC CBC, TSH3 #### [facility] [address] Estimated glomerular filtrat ion rate (GFR) non- AmericanOrdered By: Danis Tubbs on 01-05-2022 GFR/1.73 sq M.predicted among non-blacks MDRD (S/P/Bld) [Vol rate/Area] > 60 mL/Min [facility] Lipid PanelOrdered By: Danis Tubbs on 01-05-2022 Cholesterol [Mass/Vol] 210 mg/dL High 140-200 [facility] Comment on above: Result Comment: Chol less than 200 mg/dl low risk Chol 201-239 mg/dl borderline risk Chol 240 mg/dl and greater high risk Performed By: #### L IPID, CMP, CHC CBC, TSH3 #### [facility] [address] Chol less than 200 m g/dl low risk Chol 201-239 mg/dl borderline risk Chol 240 mg/dl and greater high risk Cholesterol in HDL [Mass/Vol] 37 mg/dL Normal 35-85 [facility] Comment on above: Result Comment: HDL CHOL ATP-III CLASSIFICATION Cardiovascular Risk HDL > or equal to 60 mg/dL LOW HDL < 40 mg/dL HIGH Performed By: #### L IPID, CMP, CHC CBC, TSH3 #### [facility] [address] HDL CHOL ATP-III CLA SSIFICATION Cardiovascular Risk HDL > or equal to 60 mg/dL LOW HDL < 40 mg/dL HIGH Cholesterol.total/Tia sterol in HDL [Mass ratio] 5.7 {ratio} Normal <5.0 [facility] Comment on above: Performed By: #### L IPID, CMP, CHC CBC, TSH3 #### [facility] [address] Lipid Panelon 01-05-2022 LDL Cholesterol,Calculated 140 mg/dL High 0-100 [facility] Comment on above: Result Comment: LDL ATP III CLASSIFICATION LDL less than 100 mg/dL Optimal LDL 100-129 mg/dL Near or above optimal LDL 130-159 mg/dL Borderline high LDL 160-189 mg/dL High LDL greater than 189 mg/dL Very high Performed By: #### L IPID, CMP, CHC CBC, TSH3 #### [facility] [address] Triglyceride w/Reflex 165 mg/dL High 35-149 [facility] Comment on above: Result Comment: TRIG ATP III CLASSIFICATION TRIG less than 150 mg/dL Normal TRIG 150-199 mg/dL Borderline high TRIG 200-500 mg/dL High TRIG greater than 500 mg/dL Very high Standard traceable to the Center for Disease Conrtrol and Prevention (CDC) test method. Performed By: #### L IPID, CMP, CHC CBC, TSH3 #### [facility] [address] VLDL CHOLESTEROL 33 mg/dL Normal [facility] Comment on above: Performed By: #### L IPID, CMP, CHC CBC, TSH3 #### [facility] [address] MCHC Auto (RBC) [Mass/Vol]Or dered By: Danis Tubbs on 01-05-2022 MCHC (RBC) [Mass/Vol] 34.0 g/dL 32.0-35.0 [facility] No Panel InformationOrdered By: Danis Tubbs on 01-05-2022 Estimated GFR () > 60 mL/Min [facility] Comment on above: GFR estimated refere nce range: According to KDOQI guidelines, <60 ml/min/1.73m2 is sufficient to diagnose a patient with chronic kidney disease. Pharmacy Creatinine Clearance (Chem N/A [facility] Serum or plasma alanine woodruff otransferase measurement without P-5'-P (enzymatic activiOrdered By: Danis Tubbs on 01-05-2022 ALT No additional P-5'-P [Catalytic activity/Vol] 32 U/L 10-60 [facility] Thyroid Stimulating HormoneO rdered By: Danis Tubbs on 01-05-2022 TSH Qn 3.27 m[IU]/L Normal 0.45-5.33 [facility] Comment on above: Result Comment: PERF ORMED BY: [place] [address] PATHOLOGIST [employer] KARLOS WALKER M.D. Performed By: #### L IPID, CMP, CHC CBC, TSH3 #### [facility] [address] Triglyceride [Mass/volume] i n Serum or PlasmaOrdered By: Danis Tubbs on 01-05-2022 Triglyceride [Mass/Vol] 165 mg/dL 35-149 [facility] Comment on above: TRIG ATP III CLASSIF ICATION TRIG less than 150 mg/dL Normal TRIG 150-199 mg/dL Borderline high TRIG 200-500 mg/dL High TRIG greater than 500 mg/dL Very high Standard traceable to the Center for Disease Conrtrol and Prevention (CDC) test method. 25(OH)D3 [facility] 25-hydroxyvitamin D3 [Mass/Vol] 16.7 ng/mL Low 31.0-80.0 [facility] Comment on above: Order Comment: Speci men Type: BLOOD SPECIMEN Ordering Facility: [facility] Address: [address] [place] [address] Result Comment: Clas sification of 25 [place] Vitamin D status: Deficiency/Insufficiency: < or = 30 ng/ml. Sufficiency/Optimal Levels: 31-80 ng/mL Toxicity: > 100 ng/mL. Test performed by chemiluminescent immunoassay. Performed By: #### 1 989-3 #### [facility] CLIA [id number] [address] [place], [place] [address] STATES OF [facility] CBC W Auto Differential pane l (Bld)on 12-01-2021 Basophils (Bld) [#/Vol] 0.07 10*3/uL Normal <0.11 [facility] Comment on above: Order Comment: Speci men Type: BLOOD SPECIMEN Ordering Facility: [facility] Address: [address] [place] [address] Performed By: #### 5 7021-8 #### [facility] CLIA [id number] [place] Basophils/100 WBC (Bld) 1.3 % Normal [facility] Comment on above: Order Comment: Speci men Type: BLOOD SPECIMEN Ordering Facility: [facility] Address: [address] [place] [address] Performed By: #### 5 7021-8 #### [facility] CLIA [id number] [place] Differential cell count method Nom (Bld) Auto Normal [facility] Comment on above: Order Comment: Speci men Type: BLOOD SPECIMEN Ordering Facility: [facility] Address: [address] [address] Performed By: #### 5 7021-8 #### [facility] [place] [id number] [address] [place] [address] [place] Eosinophils (Bld) [#/Vol] 0.10 10*3/uL Normal <0.46 [facility] Comment on above: Order Comment: Speci men Type: BLOOD SPECIMEN Ordering Facility: [facility] Address: [address] [place] [address] Performed By: #### 5 7021-8 #### [facility] [place] [id number] [address] [place] [address] [place] Eosinophils/100 WBC (Bld) 1.9 % Normal [facility] Comment on above: Order Comment: Speci men Type: BLOOD SPECIMEN Ordering Facility: [facility] Address: [address] [place] [address] Performed By: #### 5 7021-8 #### [facility] [place] [id number] [address] [place] [address] [place] Erythrocyte distribution width (RBC) [Ratio] 12.3 % Normal 11.5-15.0 [facility] Comment on above: Order Comment: Speci men Type: BLOOD SPECIMEN Ordering Facility: [facility] Address: [address] [place] [address] Performed By: #### 5 7021-8 #### [facility] [place] [id number] [place] Hematocrit (Bld) [Volume fraction] 44.0 % Normal 36.0-46.0 [facility] Comment on above: Order Comment: Speci men Type: BLOOD SPECIMEN Ordering Facility: [facility] Address: [address] [place], [place] [address] Performed By: #### 5 7021-8 #### [facility] [place] [id number] [place] [address] [place] Hemoglobin (Bld) [Mass/Vol] 14.3 g/dL Normal 11.5-15.5 [facility] Comment on above: Order Comment: Speci men Type: BLOOD SPECIMEN Ordering Facility: [facility] Address: [address] [place] [address] Performed By: #### 5 7021-8 #### [facility] CLIA [id number] [address] [place] [address] [place] IMMATURE GRAN % 0.6 % Normal [facility] Comment on above: Order Comment: Speci men Type: BLOOD SPECIMEN Ordering Facility: [facility] Address: [address] [place] [address] Performed By: #### 5 7021-8 #### [facility] [place] [id number] [place] IMMATURE GRAN ABS 0.03 k/uL Normal <0.10 [facility] Comment on above: Order Comment: Speci men Type: BLOOD SPECIMEN Ordering Facility: [facility] Address: [address] [place] [address] Performed By: #### 5 7021-8 #### [facility] IA [id number] [address] [place] [address] [place] Lymphocytes (Bld) [#/Vol] 2.30 10*3/uL Normal 1.00-4.00 [facility] Comment on above: Order Comment: Speci men Type: BLOOD SPECIMEN Ordering Facility: [facility] Address: [address] [place] [address] Performed By: #### 5 7021-8 #### [facility] IA [id number] [place] Lymphocytes/100 WBC (Bld) 43.3 % Normal [facility] Comment on above: Order Comment: Speci men Type: BLOOD SPECIMEN Ordering Facility: [facility] Address: [address] [place] [address] Performed By: #### 5 7021-8 #### [facility] IA [id number] [place] [address] [place] MCH (RBC) [Entitic mass] 29.9 pg Normal 26.0-34.0 [facility] Comment on above: Order Comment: Speci men Type: BLOOD SPECIMEN Ordering Facility: [facility] Address: [address] [place] [address] Performed By: #### 5 7021-8 #### [facility] IA [id number] [address] [place] [address] [place] MCHC (RBC) [Mass/Vol] 32.5 g/dL Normal 30.5-36.0 [facility] Comment on above: Order Comment: Speci men Type: BLOOD SPECIMEN Ordering Facility: [facility] Address: [address] [place] [address] Performed By: #### 5 7021-8 #### [facility] [id number] [address] [place] [address] [place] MCV (RBC) [Entitic vol] 91.9 fL Normal 80.0-100.0 [facility] Comment on above: Order Comment: Speci men Type: BLOOD SPECIMEN Ordering Facility: [facility] Address: [address] [place] [address] Performed By: #### 5 7021-8 #### [facility] IA [id number] [address] [place] [address] [place] Monocytes (Bld) [#/Vol] 0.29 10*3/uL Normal <0.87 [facility] Comment on above: Order Comment: Speci men Type: BLOOD SPECIMEN Ordering Facility: [facility] Address: [address] [place] [address] Performed By: #### 5 7021-8 #### [facility] IA [id number] [address] [place] [address] OF [facility] Monocytes/100 WBC (Bld) 5.5 % Normal [facility] Comment on above: Order Comment: Speci men Type: BLOOD SPECIMEN Ordering Facility: [facility] Address: [address] Performed By: #### 5 7021-8 #### [facility] IA [id number] [address] [place] [address] [place] Neutrophils (Bld) [#/Vol] 2.52 10*3/uL Normal 1.45-7.50 [facility] Comment on above: Order Comment: Speci men Type: BLOOD SPECIMEN Ordering Facility: [facility] Address: [address] [place], [place] [address] Performed By: #### 5 7021-8 #### [facility] IA [id number] [address] [place] [address] [place] OF [place] Neutrophils/100 WBC (Bld) 47.4 % Normal [facility] Comment on above: Order Comment: Speci men Type: BLOOD SPECIMEN Ordering Facility: [facility] Address: [address] [place], [place] [address] Performed By: #### 5 7021-8 #### [facility] IA [id number] [address] [place] [address] [place] Nucleated RBC (Bld) [#/Vol] 10*3/uL Normal <0.01 [facility] Comment on above: Order Comment: Speci men Type: BLOOD SPECIMEN Ordering Facility: [facility] Address: [address] [place], [place] [address] Performed By: #### 5 7021-8 #### [facility] IA [id number] [address] [place] [address] [place] Nucleated RBC/100 WBC (Bld) [Ratio] 0.0 /100 WBC Normal [facility] Comment on above: Order Comment: Speci men Type: BLOOD SPECIMEN Ordering Facility: [facility] Address: [address] [place], [place] [address] Performed By: #### 5 7021-8 #### [facility] IA [id number] [address] [place] [address] [place] Platelet mean volume (Bld) [Entitic vol] 11.2 fL Normal 9.0-12.7 [facility] Comment on above: Order Comment: Speci men Type: BLOOD SPECIMEN Ordering Facility: [facility] Address: [address] [place], [place] [address] Performed By: #### 5 7021-8 #### [facility] CLIA [id number] [address] [place] [address] [place] Platelets (Bld) [#/Vol] 168 10*3/uL Normal 150-400 [facility] Comment on above: Order Comment: Speci men Type: BLOOD SPECIMEN Ordering Facility: [facility] Address: [address] [place], [place] [address] Result Comment: Resu lts checked and verified. No clot detected Performed By: #### 5 7021-8 #### [facility] CLIA [id number] [address] [place] [address] [place] RBC (Bld) [#/Vol] 4.79 10*6/uL Normal 3.90-5.20 [facility] Comment on above: Order Comment: Speci men Type: BLOOD SPECIMEN Ordering Facility: [facility] Address: [address] [place], [place] [address] Performed By: #### 5 7021-8 #### [facility] IA [id number] [address] [place] [address] [place] WBC (Bld) [#/Vol] 5.31 10*3/uL Normal 3.70-11.00 [facility] Comment on above: Order Comment: Speci men Type: BLOOD SPECIMEN Ordering Facility: [facility] Address: [address] [place], [place] [address] Performed By: #### 5 7021-8 #### [facility] CLIA [id number] [address] [place] [address] [facility] [place] Comprehensive metabolic 2000 panelon 12-01-2021 Albumin [Mass/Vol] 4.5 g/dL Normal 3.9-4.9 [facility] Comment on above: Order Comment: Speci men Type: BLOOD SPECIMEN Ordering Facility: [facility] Address: [address] Performed By: #### 2 4323-8, 3016-3, 55263-5, 78311-1 #### [facility] CLIA [id number] [address] [place] [address] [place] ALP [Catalytic activity/Vol] 46 U/L Normal 34-123 [facility] Comment on above: Order Comment: Speci men Type: BLOOD SPECIMEN Ordering Facility: [facility] Address: [address] [place], [place] [address] Performed By: #### 2 4323-8, 3016-3, 92605-3, 54839-4 #### [facility] CLIA [id number] [address] [place] [address] [place] ALT [Catalytic activity/Vol] 21 U/L Normal 7-38 [facility] Comment on above: Order Comment: Speci men Type: BLOOD SPECIMEN Ordering Facility: [facility] Address: [address] [place], [place] [address] Performed By: #### 2 4323-8, 3016-3, 73720-0, 72050-1 #### [facility] CLIA [id number] [address] [place], [place] [address] [place] [address] [place] Anion gap [Moles/Vol] 10 mmol/L Normal 9-18 [facility] Comment on above: Order Comment: Speci men Type: BLOOD SPECIMEN Ordering Facility: [facility] Address: [address] [place], [place] [address] Performed By: #### 2 4323-8, 3016-3, 57043-4, 38817-9 #### [facility] CLIA [id number] [address] [place] [address] [place] AST [Catalytic activity/Vol] 18 U/L Normal 13-35 [facility] Comment on above: Order Comment: Speci men Type: BLOOD SPECIMEN Ordering Facility: [facility] Address: [address] [place], [place] [address] Performed By: #### 2 4323-8, 3016-3, 20327-8, 52864-4 #### [facility] CLIA [id number] [address] [place] [address] [place] Bilirubin [Mass/Vol] 0.3 mg/dL Normal 0.2-1.3 [facility] Comment on above: Order Comment: Speci men Type: BLOOD SPECIMEN Ordering Facility: [facility] Address: [address] [place], [place] [address] Performed By: #### 2 4323-8, 3016-3, 63281-4, 39877-3 #### [facility] CLIA [id number] [address] [place] [address] [place] Calcium [Mass/Vol] 9.2 mg/dL Normal 8.5-10.2 [facility] Comment on above: Order Comment: Speci men Type: BLOOD SPECIMEN Ordering Facility: [facility] Address: [address] [place] [address] Performed By: #### 2 4323-8, 3016-3, 01096-7, 22342-3 #### [facility] CLIA [id number] [address] [place] [address] [place] Chloride [Moles/Vol] 104 mmol/L Normal 97-105 [facility] Comment on above: Order Comment: Speci men Type: BLOOD SPECIMEN Ordering Facility: [facility] Address: [address] [place], [place] [address] Performed By: #### 2 4323-8, 3016-3, 74290-5, 02298-6 #### [facility] CLIA [id number] [address] [place] [address] [place] CO2 [Moles/Vol] 23 mmol/L Normal 22-30 [facility] ital Comment on above: Order Comment: Speci men Type: BLOOD SPECIMEN Ordering Facility: [facility] Address: [address] [place], [place] [address] Performed By: #### 2 4323-8, 3016-3, 84608-5, 13932-1 #### [facility] CLIA [id number] [address] [place] [address] [place] Creatinine [Mass/Vol] 0.57 mg/dL Low 0.58-0.96 [facility] Comment on above: Order Comment: Rangel zamora Type: BLOOD SPECIMEN Ordering Facility: [facility] Address: [address] [phone] Performed By: #### 2 4323-8, 3016-3, 19021-9, 85072-0 #### [facility] CLIA [id number] [address] [place] [address] [place] ESTIMATED GLOMERULAR FILTRATION RATE 124 mL/min/1.73m??? Normal >=60 [facility] Comment on above: Order Comment: Rangel zamora Type: BLOOD SPECIMEN Ordering Facility: [facility] Address: [address] [place] [address] Result Comment: Aleksandra mated Glomerular Filtration Rate [...] GFR. Performed By: #### 2 4323-8, 3016-3, 80624-7, 07722-0 #### [facility] CLIA [id number] [address] [facility] [place] [address] [place] Glucose [Mass/Vol] 112 mg/dL High 74-99 [facility] Comment on above: Order Comment: Rangel zamora Type: BLOOD SPECIMEN Ordering Facility: [facility] Address: [address] [phone] Result Comment: The [place] Diabetes Association (ADA) provides guidance for cutoff [...] Standards of Medical Care in Diabetes 2016, [place] Diabetes Association. Diabetes Care. 2016.39(Suppl 1). Performed By: #### 2 4323-8, 3016-3, 56660-2, 74675-8 #### [facility] CLIA [id number] [address] [place] [address] [place] Potassium [Moles/Vol] 4.5 mmol/L Normal 3.7-5.1 [facility] Comment on above: Order Comment: Rangel zamora Type: BLOOD SPECIMEN Ordering Facility: [facility] Address: [address] [place] [address] Performed By: #### 2 4323-8, 6-3, 25153-6, 05472-4 #### [facility] CLIA [id number] [address] [place] [address] [place] Protein [Mass/Vol] 7.4 g/dL Normal 6.3-8.0 [facility] Comment on above: Order Comment: Rangel zamora Type: BLOOD SPECIMEN Ordering Facility: [facility] Address: [address] [place] [address] Performed By: #### 2 4323-8, 3016-3, 21913-5, 83206-5 #### [facility] CLIA [id number] [address] [place] [address] [place] Sodium [Moles/Vol] 137 mmol/L Normal 136-144 [facility] Comment on above: Order Comment: Rangel zamora Type: BLOOD SPECIMEN Ordering Facility: [facility] Address: [address] [place] [address] Performed By: #### 2 4323-8, 3016-3, 10314-8, 84562-8 #### [facility] CLIA [id number] [address] [place] [address] [place] Urea nitrogen [Mass/Vol] 12 mg/dL Normal 7-21 [facility] Comment on above: Order Comment: Speci men Type: BLOOD SPECIMEN Ordering Facility: [facility] Address: [address] [place] [address] Performed By: #### 2 4323-8, 3016-3, 44819-6, 74729-9 #### [facility] CLIA [id number] [address] [place] [address] [place] Ferritin SerPl-mCncon 2021 Ferritin [Mass/Vol] 177.6 ng/mL Normal 14.7-205.1 [facility] Comment on above: Order Comment: Rangel [facility] Type: BLOOD SPECIMEN Ordering Facility: [facility] Address: [address] [place] [address] Performed By: #### 2 4323-8, 3016-3, 71768-8, 71674-1 #### [facility] CLIA [id number] [address] [place] [address] [place] Folate SerPl-mCncon 12-02-19 Folate [Mass/Vol] 9.3 ng/mL Normal >4.7 [facility] Comment on above: Order Comment: Speci men Type: BLOOD SPECIMEN Ordering Facility: [facility] Address: [address] [place] [address] Performed By: #### 2 4323-8, 3016-3, 88154-9, 79223-6 #### [facility] CLIA [id number] [address] [place] [address] [place] HbA1c (Bld)on 12-01-2021 Average glucose Estimated from glycated hemoglobin (Bld) [Mass/Vol] 108 mg/dL Normal [facility] Comment on above: Order Comment: Speci men Type: BLOOD SPECIMEN Ordering Facility: [facility] Address: [address] [place] [address] Result Comment: eAG: (Estimated average glucose) is a calculated value from HgbA1c and is lifeline representatives of the average blood glucose level in the last 2-3 month period. Performed By: #### 2 4323-8, 3016-3, 12489-6, 35740-6 #### [facility] CLIA [id number] [address] [place], [place] [address] [place] [address] [place] HbA1c (Bld) [Mass fraction] 5.4 % Normal 4.3-5.6 [facility] Comment on above: Order Comment: Rangel zamora Type: BLOOD SPECIMEN Ordering Facility: [facility] Address: [address] [place] [address] Result Comment: Amer ican Diabetes Association guidelines indicate that patients with HgbA1c in the range 5.7-6.4% are at increased risk for development of diabetes, and intervention by lifestyle modification may be beneficial. HgbA1c greater or equal to 6.5% is considered diagnostic of diabetes. Performed By: #### 2 4323-8, 3016-3, 11621-3, 85045-4 #### [facility] CLIA [id number] [address] [place], [place] [address] [place] [address] OF [place] Iron and Iron binding capaci [facility] 12-01-2021 Iron [Mass/Vol] 69 ug/dL Normal 41-186 [facility] ital Comment on above: Order Comment: Rangel zamora Type: BLOOD SPECIMEN Ordering Facility: [facility] Address: [address] [place] [address] Performed By: #### 2 4323-8, 3016-3, 96373-5, 42805-6 #### [facility] CLIA [id number] [address] [place], [place] [address] [place] [address] [place] Iron binding capacity [Mass/Vol] 296 ug/dL Normal 232-386 [facility] Comment on above: Order Comment: Rangel zamora Type: BLOOD SPECIMEN Ordering Facility: [facility] Address: [address] [place] [address] Performed By: #### 2 4323-8, 3016-3, 87917-4, 08895-6 #### [facility] CLIA [id number] [address] [place] [address] [facility] Iron/TIBC [Molar ratio] 23.3 % Normal 15.0-57.0 [facility] Comment on above: Order Comment: Speci men Type: BLOOD SPECIMEN Ordering Facility: [facility] Address: [address] [place] [address] Performed By: #### 2 4323-8, 3016-3, 06989-0, 40516-0 #### [facility] CLIA [id number] [address] [place] [address] [facility] Lipid 1996 panelon 2 Cholesterol [Mass/Vol] 229 mg/dL High <200 [facility] Comment on above: Order Comment: Speci men Type: BLOOD SPECIMEN Ordering Facility: [facility] Address: [address] [place] [address] Result Comment: <200 mg/dL, Desirable 200-239 mg/dL, Borderline high >239 mg/dL, High Performed By: #### 2 4323-8, 3016-3, 43850-4, 13694-7 #### [facility] CLIA [id number] [address] [place] [address] [facility] Cholesterol in HDL [Mass/Vol] 39 mg/dL Low >39 [facility] Comment on above: Order Comment: Speci men Type: BLOOD SPECIMEN Ordering Facility: [facility] Address: [address] [place] [address] Result Comment: 40-5 9 mg/dL, Acceptable >59 mg/dL, High: Negative risk factor for coronary heart disease <40 mg/dL, Low: Positive risk factor for coronary heart disease Performed By: #### 2 4323-8, 3016-3, 29398-9, 11555-7 #### [facility] CLIA [id number] [address] [place], [place] [address] [place] [address] OF [facility] Cholesterol in LDL [Mass/Vol] 155 mg/dL High <100 [facility] Comment on above: Order Comment: Speci men Type: BLOOD SPECIMEN Ordering Facility: [facility] Address: [address] [place] [address] Result Comment: <100 mg/dL, Optimal 100-129 mg/dL, Near optimal/above optimal 130-159 mg/dL, Borderline high 160-189 mg/dL, High >189 mg/dL, Very high Secondary prevention optimal LDL Cholesterol levels are recommended to be < 70 mg/dL Performed By: #### 2 4323-8, 3016-3, 49499-3, 30372-6 #### [facility] CLIA [id number] [address] [facility] [place] [address] [place] Cholesterol in LDL/Cholesterol in HDL [Mass ratio] 3.97 {ratio} High <2.54 [facility] Comment on above: Order Comment: Specgloria men Type: BLOOD SPECIMEN Ordering Facility: [facility] Address: [address] [place] [address] Result Comment: Refe rence: 1. National Cholesterol Education Program ATP III Guideline At-A-Glance Quick Desk Reference: National Heart, Lung, and Blood [place]. National Institutes of Health. 2001: NIH Publication No. 01-3305. 2. An International Atherosclerosis Society position paper: global recommendations for the management of dyslipidemia: executive summary, Atherosclerosis. 2014: 232(2):410-413. Performed By: #### 2 4323-8, 3016-3, 19554-6, 32274-6 #### [facility] CLIA [id number] [address] [facility] [place] [address] [place] [facility] Cholesterol in VLDL [Mass/Vol] 35 mg/dL High <30 [facility] Comment on above: Order Comment: Rangel zamora Type: BLOOD SPECIMEN Ordering Facility: [facility] Address: [address] [phone] Performed By: #### 2 4323-8, 3016-3, 57187-0, 87545-5 #### [facility] CLIA [id number] [address] [facility] [place] [address] [place] Cholesterol non HDL [Mass/Vol] 190 mg/dL High <130 [facility] Comment on above: Order Comment: Rangel men Type: BLOOD SPECIMEN Ordering Facility: [facility] Address: [address] Result Comment: <130 mg/dL, Optimal 130-159 mg/dL, Near optimal/above optimal 160-189 mg/dL, Borderline high 190-219 mg/dL, High >219 mg/dL, Very high Secondary prevention optimal non HDL Cholesterol levels are recommended to be <100 mg/dL Performed By: #### 2 4323-8, 3016-3, 47554-9, 39039-0 #### [facility] CLIA [id number] [address] [place], [place] [address] [place] [address] OF [facility] Cholesterol.total/Tia sterol in HDL [Mass ratio] 5.87 {ratio} High <5.10 [facility] Comment on above: Order Comment: Rangel zamora Type: BLOOD SPECIMEN Ordering Facility: [facility] Address: [address] [place], [place] [address] Performed By: #### 2 4323-8, 3016-3, 55017-4, 56743-7 #### [facility] CLIA [id number] [address] [place], [place] [address] [place] [address] FASTING TIME 12 hrs Normal [facility] l Comment on above: Order Comment: Kevini men Type: BLOOD SPECIMEN Ordering Facility: [facility] Address: [address] Performed By: #### 2 4323-8, 3016-3, 72357-8, 84030-8 #### [facility] CLIA [id number] [address] [place], [place] [address] [place] [address] OF [facility] Triglyceride [Mass/Vol] 173 mg/dL High <150 [facility] Comment on above: Order Comment: Speci men Type: BLOOD SPECIMEN Ordering Facility: [facility] Address: [address] [place] [address] Result Comment: <150 mg/dL, Normal 150-199 mg/dL, Borderline high 200-499 mg/dL, High >499 mg/dL, Very high Performed By: #### 2 4323-8, 3016-3, 08481-2, 00730-0 #### [facility] CLIA [id number] [address] [place] [address] [place] PTH-Intact SerPl-mCncon - Parathyrin.intact [Mass/Vol] 42 pg/mL Normal 15-65 [facility] Comment on above: Order Comment: Rangel zamora Type: BLOOD SPECIMEN Ordering Facility: [facility] Address: [address] [place], [place] [id number] Performed By: #### 2 731-8 #### [facility] CLIA [id number] [address] [place] [address] [id number] [address] [place] TSH SerPl-aCncon 12-01-2021 TSH Qn 3.170 m[IU]/L Normal 0.270-4.200 [facility] Comment on above: Order Comment: Rangel zamora Type: BLOOD SPECIMEN Ordering Facility: [facility] Address: [address] [place] [address] Result Comment: If t he patient is , TSH reference range varies by gestational period: First Trimester (weeks 9-12): 0.180-2.990 mIU/L Second Trimester: 0.110-3.980 mIU/L Third Trimester: 0.480-4.710 mIU/L Franco Callejas et al. A Practical Approach for the Verifications and Determination of Site- and Trimester-Specific Reference Intervals for Thyroid Function tests in . Thyroid, 2019:29:3:412-420. Varun Blevins, et al. 2017 Guidelines of the Citizen [place] Thyroid Association for the Diagnosis and Management of Thyroid Disease during and the . Thyroid, 2017:27:3:315-389. Performed By: #### 2 4323-8, 3016-3, 23810-0, 32087-8 #### [facility] CLIA [id number] [place] [address] [place] VITAMIN B1 (THIAMINE), WHOLE BLOODon 12-01-2021 Thiamine (Bld) [Moles/Vol] 134.6 nmol/L Normal 84.3-213.3 [facility] Comment on above: Order Comment: Rangel zamora Type: BLOOD SPECIMEN Ordering Facility: [facility] Address: [address] [place], [place] [id number] Result Comment: This assay measures the concentration of thiamine diphosphate (TDP), the primary active form of vitamin B1. Approximately 90 percent of vitamin B1 present in whole blood is TDP. Thiamine and thiamine monophosphate, which comprise the remaining 10 percent, are not measured. This test was developed and its performance characteristics determined by [facility] [place] ([facility]). It has not been cleared or approved by the FDA. [facility] is regulated under CLIA as qualified to perform high-complexity testing. This test is used for clinical purposes. It should not be regarded as investigational or for research. Performed By: #### B 1WB #### [facility] CLIA [id number] [address] [place], [place] [address] [place] [address] [place] Vit B12 [facility] 022 Cobalamin (Vitamin B12) [Mass/Vol] 304 pg/mL Normal 232-1,245 [facility] Comment on above: Order Comment: Speci men Type: BLOOD SPECIMEN Ordering Facility: [facility] Address: [address] [place], [place] [id number] Performed By: #### 2 4323-8, 3016-3, 76464-2, 29126-9 #### [facility] CLIA [id number] [address] [facility]. [address] [place] No Panel Informationon 11-28 [facility] US ABD RIGHT UPPER QUADRANTo n 11-28-2021 US ABD RIGHT UPPER QUADRANT * * *Final Report* * * DATE OF EXAM: Nov 28 2021 1:51PM [facility] 1032 - US ABD RIGHT UPPER QUADRANT [...] biliary ductal dilatation. The gallbladder is unremarkable. Financial Legal Assistant: [facility] Transcribe Date/Time: Nov 28 2021 2:20P Dictated by : CJ QUINTERO MD This examination was interpreted and the report reviewed and electronically signed by: CJ QUINTERO MD on Nov 28 2021 2:21PM EST [id number] [facility] XR CHEST 2V FRONTAL/LATon XR CHEST [...] tissues: Unremarkable. IMPRESSION: No acute radiographic abnormality. Financial Legal Assistant: [facility] Transcribe Date/Time: Nov 28 2021 1:32P Dictated by : KOMAL VINES MD This examination was interpreted and the report reviewed and electronically signed by: KOMAL VINES MD on Nov 28 2021 1:33PM EST [id number] [facility] ANES POSTPROC EVALon 022 ANES POSTPROC EVAL HNO ID: [id number] Author: Fannie Tanner MD Service: Anesthesiology Author Type: Physician Type: Anesthesia Postprocedure Evaluation Filed: 11/26/2021 3:12 PM Note Text: POST ANESTHESIA EVALUATION NOTE : 1990 Procedure Summary Date: 11/26/21 Room / Location: Procedures Anesthesia Start: 1315 Anesthesia Stop: 1328 Procedure: EGD DIAGNOSTIC Diagnosis: Pre-op exam (Heartburn) Scheduled Providers: Mulugeta Salmon MD; Fannie Tanner MD; Maria Alejandra Callejas APRN.SLEEVE MAKER Responsible Provider: Fannie Tanner MD Anesthesia Type: [...] November 26, 2021 TIME: 3:12 PM CSN: [id number] [facility] ANES PRE-OPon 11-26-2021 ANES PRE-OP HNO ID: [id number] Author: Fannie Tanner MD Service: Anesthesiology Author Type: Physician Type: Anesthesia Preprocedure Evaluation Filed: 11/26/2021 12:27 PM Note Text: ANESTHESIOLOGY DAY OF SURGERY NOTE : 1990 Procedure Information Date/Time: 11/26/21 1245 Scheduled providers: Mulugeta Salmon MD; Fannie Tanner MD; Maria Alejandra Callejas APRN.SLEEVE MAKER Procedure: EGD DIAGNOSTIC Location: Procedures Estimated body [...] November 26, 2021 TIME: 12:27 PM CSN: [id number] Normal [facility] EGD DIAGNOSTICon 11-26-2021 [facility] Upper GI endoscopyon 022 Upper GI endoscopy [facility] Gastrointestinal Endoscopy Patient Name: Funmilayo [...] by the physician, the nurse and the manager operating in the pre-procedure area in the endoscopy [...] previously scheduled. Procedure Code(s): --- Professional --- 86125, Esophagogastroduoden oscopy, flexible, transoral; diagnostic, including collection of specimen(s) by brushing or washing, when performed (separate procedure) Diagnosis Code(s): --- Professional --- K21.0, Gastro-esophageal reflux disease with esophagitis R12, Heartburn CPT copyright 2019 [employer] [place] [employer]. All rights reserved. The codes documented in this report are preliminary and upon family support specialist review may be revised to meet current compliance requirements. Attending Participation: I personally performed the entire procedure. Scope In: 1:21:30 PM Scope Out: 1:24:29 PM MD Mulugeta Tony MD 11/26/2021 1:27:19 PM This report has been signed electronically by Mulugeta Salmon MD Number of Addenda: 0 Note Initiated On: 11/26/2021 1:06 PM Estimated Blood Loss: Estimated blood loss: none. Normal [facility] HISTORY PHYSICALon 2 HISTORY PHYSICAL HNO ID: [id number] Author: Maria T Lares APRN.CNP Service: ? Author Type: Nurse Practitioner Type: HANDP Filed: 11/12/2021 3:58 PM Note Text: HISTORY AND PHYSICAL EXAMINATION SERVICE DATE: 11/12/2021 SERVICE TIME: 3:26 PM PRIMARY CARE PHYSICIAN: No Pcp This is a virtual visit using [employer] video visit. It required patient-provider interaction for [...] fevers. Neurological: No history of TIA's, stroke, SPORTS THERAPIST tumor, impaired sensorium, hemiplegia, paraplegia or quadraplegia. No neurological symptoms or problems. Respiratory: No history of current cough or dyspnea, or pneumonia in the past 6 weeks. No history of respiratory/pulmonar y symptoms or problems. Cardiovascular: No history of HTN requiring medication, no history of angina, CHF, [place], cardiac surgery or stents. Denies rest pain, [...] > 1 time per night or hematuria. FOLLOW UP MANAGER: Negative for abnormal vaginal bleeding, abnormal vaginal [...] results with (more content not included)... Normal [facility] COVID Quick Testingon 2021 Result Negative [employer] Other Quick Strepon 10-27-2021 S. pyogenes Org specific cx Ql (Throat) Negative [facility] Other Quick Noonswoon Other Consent for Procedure/Surger yon 08-05-2021 Consent for Procedure/Surgery [id number] #1.00CD:[address] [facility] Ambulatory Visit Summaryon 0 08-04-2021 Ambulatory Visit [...] are no longer receiving treatment for. Normal [facility] Physician Referralon 022 Physician Referral [id number] #1.00CD:[address] [facility] Physician Referral [id number] #1.00CD:[address] [facility] 06-08 SARS-CoV-2 (COVID-19) RNA JONH+probe Ql (Unsp spec) Not detected Normal NOT DETECTED [facility] Comment on above: Result Comment: This test is not yet approved or cleared by the [place] FDA. When there are no FDA-approved or cleared tests available, and other criteria are met, FDA can make tests available under an emergency access mechanism called an Emergency Use Authorization (EUA). The EUA for this test is supported by the [place] of Health and Human Service's (HHS's) declaration [...] SARS-CoV-2. Performed By: #### C VDTB #### [facility] [address] [place] [address] Dr. Kerri Roberto Covid-19 PCR ([facility]on SARS-CoV-2 (COVID-19) RNA JONH+probe Ql (Unsp spec) Not detected Normal NOT DETECTED [facility] Comment on above: Result Comment: This test is not yet approved or cleared by the [place] FDA. When there are no FDA-approved or cleared tests available, and other criteria are met, FDA can make tests available under an emergency access mechanism called an Emergency Use Authorization (EUA). The EUA for this test is supported by the [place] of Health and Human Service's (HHS's) declaration [...] SARS-CoV-2. Performed By: #### C VDTB #### [place] [address] Dr. Kerri Roberto Coding Summary.on 12-26-2020 Coding Summary. CD:[id number] Gh0bWw+PGhlYWQ+PE1FV VWzV10fwIQxiX6GQ0wQR Q0AJAHPGLFSTV3QHP3om SX6VMjxA8ZkrvZo EyxojRIgPY74HRe6OTY5 rDiwEOhifM2yaWHqL6i3 GsOiOU80pZ17IWqdYQIc QoY8CzRgzlotoPCs E5pkTwWocXMhBbg+PHRh YmxlIHdpZHRoPScxMDAl BsJzkXvnWU8kYb4oQBAq LWNvbGxhcHNlOiBj u0liKMZrCZjyXJ3opXpl V8PgxYS3PFIrt5r5Df20 dHI+PQWsDTL0zRytRJzw i688YhOqo5acZWV0 pEJqJJoxQBS2F15ha5H8 YSBfOIWhJVQ1kXF1oQ5o pLcpvpgiF3RalVJuGqV7 HUB7nRRtgJ8obKsj llqpeD9aArj+F66VMX8N DXEIJV8DJtb5T4BpPppe dHI+HR26IBLwFQ41yBDm rWOft1jxqAu5QiOf CQKaOOR2sPycADxgg3Xn UKAfB31fgCMqr4X8ABBo eQsqsNHvNnKhkDE1bZ2z HGxohnwgm4aubzne Squtm5ttsw32vD39Y86m SMioWCRrSPI5TKTpINYp fWabbt3doU7xEv1+IDxj h1nye1badKc8ZyPu BAYocoJboQiyQBH8g7Mp Wn46Z7PoaBlyp8GsBvs4 jo93dGKev0S4tJL1DHxa FBZstN1oDIbvHiD4 ZXBjVyDquO19rXNnJCko Pa5ivRvonKlhVL3oPURy tzxlWRXcaJ9gXWPkyTQs mLbhXC6jMWDzqfky d308LxNqHAR1CDEcuOBq M2XffS2qPjKuCQLgNKQi M7OtfROdNTslZ509CLpk HmM8JBYobhFuD4Nf WRGguJttKmV0b9B4Bd6G i0TdvjcmODT2LKprFLV7 JtVvZiUjOhV3S1IgGyf4 ENPkuStpKK9jZ6Px NWKahfivdhgwgLH5DWBt AORauM34mLLhZIunJm6v v9V6d887LYVaDHWdxP62 Kf3vaQusVBAjeXPW yR6sttamx0vmrvlpLqYd LEAiXCi3PFl0PBEowEug EbXdDRB3YvE2YRN0qTTu hQ9ncDnqgwhkuH1v Oyc+T10qmH0mYBB4FMI1 nrsxQQJhgvPrJA19VP80 N7ThHpylnUPobWD+PGRp upHbsXeiCW8jNdMt n3kta1UyPUgeB7UiSCHh DCamPkc6OVJvFXC6iEG8 wY5jRXWkOYwqr4W9vWN4 T7HocaHqih1ju7vm HGOvPVieH55puKPbq3G7 ZKKdqDT7MOHbmUktOdGf gA14Wzn+QFSzfGyxm7Bm Sbztc8ero5zweMh3 IjMwJSIgdmFsaWduPSJ0 l0WeJt34A49sPHrfKOBv GEUyNYGjIVTnjKrhde0k xZ5uQh2+PGNvbCB3 tJV6rZ9tOKOqDrI7YUxb L935AzTmnEEqScfxe7fm h8wvrUj7SzYsUIFumuWu sTsdBCE5d2DmJq59 A57aNZilMBKhLMAjZMFp XRQccWkpes4zjN8oCz8+ YC0zf7lahi36fU88pYL+ UPFnRZL8kWpsWPsb XJHjqJ5uQCygKdS2JYOk MgUdvL37sUBaJTbxEv1x xObmkHfoTT5qYWKubdup o878WxFgx3bpXYDp pOZeBSzvVGS8R16lw1A8 BTDgWLHwIQI0zRI1wT1i bGlnbjogbGVmdDsgdmVy iObxGHoxUAavX008 IHRvcDsnPlBhdGllbnQg NyBvYLz3Q8SgRbk2UKYa fOadZA2bwYFhCPqsFq0d sOgtvCbkMG0pJCHz rjpim859DgFpj4vbJJZz zKDsCOnqQAB1U46im5N7 WCLuQHRvPUU1wTU6eG4f bGlnbjogbGVmdDsg czQzqUfsGMmqAWqsY904 IHRvcDsnPkJpcnRoIERh gGO1WZ13XE27xMQeg3H3 oMK0Q1EiXUHkglcg kgfxdLR1EOIyOLZjkI98 Re8ayQvaMg1tPMYdKLE1 QPQksIUkJ0RlhC3fWdNl SKGtLSCmL0GzwTKt QZxmE506NEcgEeS0PZRd ytOsC0VuLQNjxNidBrQ6 r0Q4Xo5NZ4M0FW15OE52 kPPbr5S1qEM4T6Xr GLXlpfntujtraML1RKTz SMLqwC78Kp1qyTakIj6b FKWgGDW6ZKMzdECiT0Cp sV5wFfFqHTFvTLYn W1XjySArOBocE659OXhb RgT9KSQbfxRbX2IzLMHi dGtmTfU5b8Q6Oi9PRAh0 TB79KW51sSTxp3J2 uQD0L7LvIZRfqqhwkflm qVO5SKUvXGTqvC06Gr6s rHdjLn0lLWAdNWZ6XPJx zITsF2EafB0mGnGq ZVQgAUYdB6HkrDBzPHez G369JXjrYjE9RTBxlbYe N5LuOGLokQvpXvS9a2P0 Vi5UUXUsYL79NTY4 eXV5QS77TQ15O4EjZnie dGFibGU+PHRhYmxlIHdp ZHRoPScxMDAlJyBzdHls QR0hRj8aJHHjRCCc uFlhbAMeJxSnx3iePBZt UOmkIS3ejXijO8YkxRK4 IIGfx0w0Rp73B82gW2Oz dXA+VMAldTG0vHU1 rL7fAzTsNvE7ZUpkN186 ExXviDPpRqfde1cba5ze dNh6TkL2XTOwugRdsImt MMW1q8TsSj47D84u IHdpZHRoPSIxNSUiIHZh tXetos3wvF6tKi3+PGNv vZC8xFZ1cH3qPfCiPqG9 DHizX439KyHyaSXw Zefkn3ptp1vwjYu2HaIy BZXwklMwhPmuOXD4k0Vr Jm92L5WqpMzpw5LsHxb2 mf68jYKej6U5vHW2 A8ShRJDgwzrdhXAzzSoq VH5hFWWqpygdNEFedP4g LRJfV5m3HmKzZkH2QPsn Y5VkedI8FTHzuZMq GPteHHM6K99vj3Y3HHWi UQMdXCG9rED5yF3uuScx bjogbGVmdDsgdmVydGlj YOumEUszN214DLBo cCgkNUFifV3uTNObkWBf mVfeYH0oOPTdbxtdCerK SgXNKsusCyVAOARAVA84 FO57lQFsv7D9yNG4 P4RePUSmnnakvfwniEO8 VIVqJKZuhP90sIYdPEye Zw3jy6D7m806VYJnEEXn gO09Zr3ndVpjQRAf tUCZiM7wrkvlp0tcloce TaHsCKKkAVv5XWa6AGIe nWbfNmRcTVC4JhE8XRO2 aBOchT9giQstqryw qD2kAil+MTEvMTQvMTk4 OTwvdGQ+PBFsHWG7vOgq JCapDEAseE7gCEQgP6p5 UaSkSjV7ICdsA5Ub AMAmjrdaJn42uP8zLeDq VzE2SOsoQ6CxexD4NJKa dSGyAJfqNMI8J88tc2I9 LZRcEWBfQHC9sQF5 pS8bdXmdtipirDZpvJcg fsIqtSwrPHgmQKfqA669 IHRvcDsnPjMxIFllYXJz ST39SG91uLCqm3W8 vRJ7M3CvNSAufithecjw hAH5LCJrKDQdcE47oBWz EMqxCp8en1J8k850LZYy RUGuoA04Dx9pqQnl CCKnyLCUaG3mzwiyi8lx qxupNjAeJNBwVEo8WLp4 HORsvTebPeAlULT9PhG9 VTB0oFArwB6dmLzj kojdqO2xZzh+RmVtYWxl CS28EL02qXJju6E5pDB8 S1ZeCHHrzjrfyszmaJB8 HZBuKLMniF50kNDp TVntUn9aw9C7u992RIUk XKCqzS42Jo5bwLehMJZw yLQAkF5odzmjn2eaoari QvKaWJBqDSl6MHl1 MIHueDkwTeAqFWT0QwF3 KTB8xOQccM0cfUrlgjyk iE5dEvx+M3VbYRO8SRLy n095O2QlEnrjdGT+ AB27DGUzMC07tMDcbWSy e6fvrEd2VsThAFGzRDT9 fOxtAZuks7EmKBAkG11y uSXdl0X7ELYjqYvi bEOjPnLxkFU0cL7gHJzk yixkj4qldeydCjrsl8hg zf79cZ66C19yIAfnQAIx PSIzMCUiIHZhbGln yq9tzN6hDo7+PGNvbCB3 gRJ7uY7pVaTkZqS0AWdd E382WaXkbSSzWgiys2ev r3ejoBm5TmCwHFAk kgJvzEggGQX8n5NnXy40 W66xREsgXSRsYMByPAEb GBDyqBtvav1axO8gTr6+ WH9ik8srhh52lC77 dHI+AGRrRJT6dSiqKZps PHQeiM8aIDjxOoC1GHWr ZyBmgH58tUBsDTwoXf4c fNjqwCbkWS1pDIPp quwed030ZnOxt4lqNMHu zWYtGTihRZK9O53ed7N9 CZXsGNMqZOR5bCB0gK3d bGlnbjogbGVmdDsg xcZogKpzZJycNAjgR050 OVPcaIetRvVhwAYfE5qy fgWSXQ3oBoemxYR+PHRk FKN5mCjpIWirESVf sE4uUFQaX0h2UnJpZwQ5 OCehD2InghB8YOFscCDl OBHugGYAvT3ncssgd5qz cjogIzAwMDAwMDt0 JPt1UTLwcVjsXdCjWLT3 NlP3FFL0iOJndI0pfWet tmjnoQ3xJmw+RklOOjwv dGQ+VVKtOWA3kVdf GWgzFOKprC9kEVRuT1i9 FtIyTdZ5IJdgA5GpnnM2 SAPtsMQxBECtxLVBjO3l nbiki4zcntgtMlKd OOScAYt2QHo1PHPgwUpg QsGwYLG1PfV0KFY0pEYt cT5rvZdnwzlwyH6mIwb+ TVJOOjwvdGQ+PHRk UCW8fWcpYEqwVIHltB0p OXJbI2a4BiVkQfP4PFfb H7GpvsL6GKGkdRCjFJQc oHCXzE3ennlke2bj kspyXgNsJSLoGHk1SLo2 ZQFwdCsyXrMqHQC1AzD3 BJK1nWFofB8bxZyhyjcd iQ0kGbv+JPT5MPK5 PP19TX78K7FuXcrrzMNw bGU+PHRhYmxlIHdpZHRo LMgyXVFuXwOteBldHL2p Ub0tWTDrTBQmqMbt cHNl (more content not included)... Normal [facility] Coding Summary.on 12-24-2020 Coding Summary. CD:[id number] Gh0bWw+PGhlYWQ+PE1FV YLiF16ccORpgK6WA2iYX B6JVAMYNKLFIW1IUL9lz AS7FYgxF4VgroGm EzhgeBBsHG13NAn5RRH2 oCfpBTpvbA8djPCdA1c3 OdJlNG40xB88NBoyXTTk FuG2FnUkwbebhUZb O7ukMlTltVJcUqz+PHRh YmxlIHdpZHRoPScxMDAl EhAmfLinHP4xFq1eYZIk LWNvbGxhcHNlOiBj d1csWVXtEIszIW4urGif N4CmuYR5JFTer5l7Ld27 dHI+NNOfNBV1kKlwVUtc y367McTmm0xnUVD0 qUCyENjqHFJ8B43jr7Q1 VMYxPREsKPX6gBB2qK1u fGhjweylW5GvkGQaAbQ7 KYC5sYJqiR5uqXsp gujbmL9mRsc+A44PAS9L DBTZYC0KZdo2H0FbBkrw dHI+GV48RDQfGG71oOAw oMXjf8qkgKm8CyVa APQrCNT4cNosYZiwe9Cn ZIErM43zmRDlj0A7DQWg mWwvmFFaQjQfnZG8fF0h PDtdoaxyx7hxzlan Dgezv9swvu59cU09D99v IAxhVDDqEBW5QBAgTKPy kTpvxc3qrR9tEs7+IDxj m1yko5afbEi2KdDg DTGjfxKudJloHRK8t6Tk Gl21A2HpbKezw7IqFfj9 vf53nWEwx0E0sBC3RTko MNMflK8iVPnkZzH8 NRZbVsCaaF89lXDjHAwd Vj4wtNfofFgcVH1mXNHy nithRFVyfB5jTENcuEMs rThwDW2nIZHeomap t327VmXvBFZ9XZCmuCNh P2FvrC8zZpLeEBXbLEIt K0CakWQfNFcaA802ENgb NsN7UEYomoLuV3Zm KIUsuOkaWdE9k1Q9Jj1B c9ErufzmCGB6IOurFSH1 VjQeGkGrVpY5W2RsSau2 JHUpcAfyMI5iX4Nd NYPiwsqckdfygJW2PDVe VBYlbA25cRUuMWnfFb3z z1S6r559XMQrATQefV39 Aw9biLvkUPBdzRAZ eX5eayhlw3tnfugaHhFo EMIaMFd7PUo0WAPhtMym LaPmTXE7InU2UMX2bFHz zA3zrYxytluktC1s Oyc+D22kmW9tAFK3OKF8 rxtyWBAhfaCmGR91HM13 J0ScSwhyfAKqpJK+PGRp lmOicFbiZO0dOqFg c9ily1DgDLbfP9MfQSJk HYlbPpd5RQPgVIU6vCG6 vE4fVHAwIFtxf6J2mML1 W9VywgHkwr5vm2po OSZzFEbaY74toQDow9U4 GTGfhBP6KKJgcUyeFkMh xI12Kmn+OPWexKsfo3Kj Wcxth7phe5lggBf6 IjMwJSIgdmFsaWduPSJ0 m9UyVc43W39yDLdlYHPp PMHjYHWtNTQkfMyroo6w bJ2jAq3+PGNvbCB3 fUY6mU2rTFMlZgG1SWee C512FaWgwHRdSxhhm0hy r5ukiEr8HiOoOBMgnpPz vDffHFC7n7LhTe94 P02bADjnKPUuQWMqHNEz TYWexYvgbe1dtP4lRq7+ JM3fv6etgk91tR88vMB+ AIXnJAC5sTqdDDnr DAIaxB6bPYwvUmN3IVOz FuTudW54jRHsYWwqKp1p oWlpxDqwKE0oCFLuxktq u002LqAob5rbDWLq eWOnPUemGUM1R31fa0L4 URMsXHQeAHC9jJH4qY6h bGlnbjogbGVmdDsgdmVy rEpfTZurNMxsS771 IHRvcDsnPlBhdGllbnQg KhWvCDo0R0ZoWml4XMMh nBjmVV1kfHVtQCqbCf1m tBeaxEfvZA5vYKDp matqv514CfQsh7awYKVf vDQmUOhdSGY2I81ww9Z3 GGViTYFjDMV1xEC6vZ9c bGlnbjogbGVmdDsg ygZdvVcfZTjaGMpcK844 IHRvcDsnPkJpcnRoIERh pJF0ER31MS25tXHih3G0 kNE4K1GpJHShndkl ulwdgTO3SSCzARLfxI89 Ej5nnWvxMx7oGZEaLTK9 WCPwjQFyJ8JwyW4dWvNj YLNyQVAmI1EjgMPe WUnxH723UAwsUoR2HIUt ejEdO0KbXRDgoJpwIhD9 s7U8Od4UK0Z4FZ12BM95 kKAzj6L3tEV2F1Mq ULIsvkeqvlgyuBS5ZSIb CVUemM11Ds7xsTdkYm3a HTCxXZL2WAPkcMAnS7Cy zN9yNcNaPWSwTZUg C4PikDRdBNqwC022LUrh UbT2WNPqanPaD7YnVQEa dZbxQpQ9u3B7Zf0SKVf3 HW44HP75cNEea6P4 lRY0L6HsPTWykcrccizo aMK0MVSnXDJitI76Ms9h iSswWo4hJUIiLQM3REUb tUDeD5CjcV3vMsMd TFXgNTJwV2TnuKDwOFnk O320IMccXoZ9ZHQjpkQv U5FzASAjcAboWnA2t4O9 Oo9YUQJbBA20FMV4 rDX9HD80CG73U2CcRrdg dGFibGU+PHRhYmxlIHdp ZHRoPScxMDAlJyBzdHls YD2gSi2iACNqDTFp mNpbcTXnTqMag5wiYSSg FDuyCA4qvZwjC8VjiAN9 VVYak9b4Vb34F20hL9Sf dXA+JBKrsRN5rRU9 vW8eXwYqFpA4WYbpE148 EfFraNLkAcqlu3oco1ql rMn8YpU9HSZuhgVriAqb GCS0d7IhMl61E40x IHdpZHRoPSIxNSUiIHZh qOmkyo0ekT2aGi3+PGNv cJV2yNI2qV8qOkAjLjE4 NMrlW252ClZmhZUt Yxjpj3gjt4qwjHq8PdGa RIQmllBbtEvyVMV3u4Li Vy76V1HkyZigj7DkLpn8 sd02cDSkd0Q7eVG0 W5CbCLWdmhcsaAKopAmh XH2iGRKezzdaCEAafN5j JHVlR1s9UoZnAbM1ISob R4BjwzM1YQSbqRWh CAfzNXI7X01il8X4OHSl KEYbBXX3hOW8kL8vbQkk bjogbGVmdDsgdmVydGlj IVviOYdcP140SGTg fZtfEPJcqF7kKROapKSv yQxsWY5sBPOirylkJakR VjGVRiooCdRFWGZSPN53 EZ56xYTru8V1fJI4 F0EhLHMntnutdtrdlNI7 BBSfCKFypZ91aJEbKKkr Qa7xc9G2u326ZNTrCGZw zQ16Xp3nwYkhSPAv tIVObF8znonez3jdcexa XsLcEKJhLWt0WPs0ZRHn tZaxHbRkDTA1GsZ2ZPM3 fFNqvL6iiTiokdlm yK3gZwy+MTEvMTQvMTk4 OTwvdGQ+GLCyIBA3zAau RLcrGBLlvY8yHDFdL7v7 CvSaUvK6XXmpC9Yd RQSyrkurEr71zY7zXrVf LnK1LUqgU0AeciH5VZQt pFAnVYjoMMR9G75ve1T0 QZObIKIeDLK0bIT6 yK8vzHafijwenJKbfIqr nkBujPvpDZvhTJgsG766 IHRvcDsnPjMxIFllYXJz ZX65GG20kLRdi3U7 zME1I4YkLZBqfdedrwci cFP4DCNpLYRifZ16xHFp FButVl9fe1R1x651MUYm CWVoyZ79Ki3myQmb OQMouDBDmE4jxxind1tg edynCnNcQNZsCEj5BXp3 DUKzuJrdJhWgFAJ8FeT0 FAP2xTMbbK1kdCcq bbbqyP6jClk+RmVtYWxl JI20NN72wPAhy2S6cRL9 W5HmOXFvlyefjttdeXS9 JUJkXLLfiL33pFHc XGkgMl6wi0X8f226PVVl DLGfmN52Re0ovIxoMQUq vLVNkG4kkntrv0zeuwmv GjEwDQHgVVw9EPg7 DKEmmVuaYmPuUKR5JgT8 UKM8eFTpdN0hmMvdvqmi nZ2cGhl+NA5vtfkvrzL8 IQ23QG64W7WqNdhu dGFibGU+PHRhYmxlIHdp ZHRoPScxMDAlJyBzdHls MK7jYk3rZOIqZESxeFhz hINuUuUgm3kjTYOb RYteYG8tfUmtP5ReuAT7 GIEsd2k4Sl40J56eN9Dp dXA+DUHciNZ3dRZ9uU7l BnYkMkS9XVqkV823 AyAiaXXiFhxbm8hfd9hf zHz1SbGzPLPaytToxUzr IYS7s2XdVa53S23dWGzn ZHRoPSIyMCUiIHZh eMhydh9reV2cEj1+PGNv dEN7bYG3eQ0oSbAiOdB1 JAbkB789SxEhgWVpFrxx K00eY3CgdVJ+PHRy Ujh7TFYfyQliVF4wvHDo GOcpPc4wWAB6QfZeXsNz RSunI7IbHLOfwiamxpby kTY4UWHvJGEljZ58 Fl3ikBoaEn1gAGNaFQG2 AIOhlDLwB3YteP5lWpNp ECMjMMQyD8CvsBQoZWau Q270ZVzbCwP9NARk duYmQ3FkFHTlcKhaXcC8 e1N2Hy8LmYpzxJKhOF1d SmMvSDd2J3OpOom1KCCz pNnoEL4mcWUaPVby Qb1tpMueaJomOQ4zARFz jrolq854QaBpx4miBWSd bAHfIPhxYEA7J14ip6G1 LVTcHBTcMXO8jES1 vY4llSlcvgyhtPZubWmp rbVaaAmjCIhkBRkmU082 QANdxZvuMqGSTve0I5Zc Csy2YZDkqMebPS7o gIEfUNbcKu3vfLzgyEbt YD8mIFMxkzros098HpPu f6prGBSeaEPdTVyxHAQ6 S49mf4G0IFJjAGFi XLO0vIT3fT0klVwrqbna bGVmdDsgdmVydGljYWwt LHryY891SIOdpJxvYy8I Hiy7E0LjNby1PSOk oMlfSX1ogFQsIJfyKv6e sGvphHjiZD1vMGYovfnh w821QbIvx9goMOFawWMr MOpwKAM0Z62jv3H8 BLPyNUHzEIV4qDZ2mJ1u bGlnbjogbGVmdDsgdmVy eWgnJBvwWVopR143QXCy cDsnPlBheWVyOjwv dGQ+NW09ov31Z5PrKygt Bsu9ORKxYMQ7aHE4zA5t YXEqCMgpw2N2tUW0Q3Eu keEhdh4fb9izKPRb ZTog (more content not included)... Normal [facility] C Urineon 12-20-2020 Bacteria identified Cx Nom [...] Locations R1: This test was performed at: [facility], [address] [place] [address], [facility]- , [place], [facility] Comment on above: Performed By: #### 1 [id number] ####[address] [place] [address] Discharge Instructionson Discharge Instructions [id number] 107 [id number] 1#1.00CD:[address] [facility] ED Note-Physicianon 12-21-19 21 ED Note-Physician care transferred at change of shift. CT pending. CT returned without acute findings. Patient accepted for admission for pain control Impression: flank pain Normal [facility] Comment on above: Result Comment: Elec tronically Signed By: Yevgeniy JOYCE, Salvador\.lito\Date and Time Signed: 12/19/20 23:07 EDT Inpatient Clinical Summaryon 12-20-2020 Inpatient Clinical Summary [address] [address] Clinical Summary Person Information: Name: FUNMILAYO CONWAY Age: 30 Years : 1990 Sex: Female PCP: Maki VELA PA-C Marital Status: Phone: [phone] Race: White Ethnicity: Non- or Language: Maltese Visit Id: Visit Reason: Vomiting; Back pain; Headache; VOMITTING; HEADACHE Speciality: Acuity: Enc Type: Observation Med Service: Medical Arrival: 12/19/2020 16:38:33 Discharge: Dispo Type: Admitted as IP to this Hosp Address: [address] [place] [id number] Provider Notes: Diagnosis: 1:Myalgia; 2:Headache; 3:Left flank [...] Follow up: With: Address: When: Maki VELA [address] [place] [address] Business (1) 12/26/2020 8:30 AM Patient Education Information: Viral Illness, Adult Normal [facility] Inpatient Patient Summaryon 12-20-2020 Inpatient Patient Summary [address] [address] Patient Discharge Instructions PERSON INFORMATION Name: CONWAYREBECCAGen Alatorre Date of : 1990 Current Date: [...] hydrated with water Take tylenol prn for [facility] Primary Care Physician to provide the following pending test results: Follow up: With: Address: When: Maki WOODSMERS [address] [place] [address] Business () 12/26/2020 8:30 AM In [...] bedtime as needed Insomnia. Pharmacy Information: [facility] Comment: PATIENT EDUCATION INFORMATION Instructions: Viral Illness, [...] infected with (more content not included)... Normal [facility] Procalcitoninon 12-20-2020 Procalcitonin .05 ng/mL Normal .00-.[address] [facility] Comment on above: Result Comment: <0.5 [...] to 24 hours. Performed By: #### 2 [id number] #### [facility] [address] [place] [address] XR Chest Single Viewon 12-20 XR Chest [...] Woodruff M.D. Transcribed by: LILY Technologist: GLEN Normal [facility] Auto Diffon 12-19-2020 Basophils/100 WBC (Bld) 0.7 % Normal 0.0-2.0 F [facility] Comment on above: Order Comment: Order Added by Discern Expert. Performed By: #### 2 028839, 0171407, 4877565, 23504663, 3321301, 0031480 #### [facility] [address] [place] [address] Basophils/Leukocytes Auto (Bld) [Pure # fraction] 0.1 E9/L Normal 0.0-0.2 [facility] Comment on above: Order Comment: Order Added by Discern Expert. Performed By: #### 2 243189, 7995862, 2887091, 61691168, 0889238, 1956149 #### [facility] [address] [place] [address] Eosinophils/100 WBC (Bld) 0.6 % Normal 0.0-8.0 [facility] Comment on above: Order Comment: Order Added by Discern Expert. Performed By: #### 2 351238, 1428676, 7924002, 63393873, 5805342, 4387084 #### [facility] [address] [place] [address] Eosinophils/Leukocytes Auto (Bld) [Pure # fraction] 0.1 E9/L Normal 0.0-0.5 [facility] Comment on above: Order Comment: Order Added by Discern Expert. Performed By: #### 2 134022, 1795357, 6719742, 05000857, 4862299, 5659386 #### [facility] [address] [place] [address] Lymphocytes/100 WBC (Bld) 29.4 % Normal 14.0-50.0 [facility] Comment on above: Order Comment: Order Added by Discern Expert. Performed By: #### 2 708205, 4471741, 8677561, 07828166, 5450760, 3458879 #### [facility] [address] [place] [address] Lymphocytes/Leukocytes Auto (Bld) [Pure # fraction] 2.5 E9/L Normal 1.0-4.0 [facility] Comment on above: Order Comment: Order Added by Discern Expert. Performed By: #### 2 687941, 0291863, 4967728, 74318189, 5140979, 1687256 #### [facility] [address] [place] [address] Monocytes/100 WBC (Bld) 7.8 % Normal 4.0-14.0 [facility] Comment on above: Order Comment: Order Added by Discern Expert. Performed By: #### 2 223270, 0329203, 7170099, 49551223, 7508237, 3983877 #### [facility] [address] [place] [address] Monocytes/Leukocytes Auto (Bld) [Pure # fraction] 0.7 E9/L Normal 0.2-1.0 [facility] Comment on above: Order Comment: Order Added by Discern Expert. Performed By: #### 2 815535, 5728288, 7689087, 74319397, 4448191, 9306670 #### [facility] [address] [place] [address] Neutrophils/100 WBC (Bld) 61.5 % Normal 36.0-75.0 [facility] Comment on above: Order Comment: Order Added by Discern Expert. Performed By: #### 2 981378, 4125471, 9126510, 07409779, 1713919, 1789802 #### [facility] [address] [place] [address] Neutrophils/Leukocytes Auto (Bld) [Pure # fraction] 5.1 E9/L Normal 2.0-7.5 [facility] Comment on above: Order Comment: Order Added by Discern Expert. Performed By: #### 2 637678, 7377391, 7647738, 41591098, 9048030, 2559935 #### [facility] [address] [place] [address] CBC w/ Auto Diffon Erythrocyte distribution width (RBC) [Ratio] 12.7 % Normal 10.9-14.2 [facility] Comment on above: Performed By: #### 2 278291, 3620123, 5167610, 98244035, 5058527, 7748520 #### [facility] [address] [place] [address] Hematocrit (Bld) [Volume fraction] 41.2 % Normal 34.0-46.0 [facility] Comment on above: Performed By: #### 2 317783, 0964773, 3069831, 36210588, 1089063, 8061512 #### [facility] [address] [place] [address] Hemoglobin (Bld) [Mass/Vol] 13.8 g/dL Normal 12.0-16.0 [facility] Comment on above: Performed By: #### 2 641724, 5831839, 5477976, 84135792, 4790638, 3042444 #### [facility] [address] [place] [address] MCH (RBC) [Entitic mass] 29.6 pg Normal 27.0-34.0 [facility] Comment on above: Performed By: #### 2 454443, 4025888, 0880668, 91467786, 6758774, 0203623 #### [facility] [address] [place] [address] MCHC (RBC) [Mass/Vol] 33.5 g/dL Normal 31.4-36.0 [facility] Comment on above: Performed By: #### 2 213305, 3539424, 7546430, 72819910, 2451902, 9695315 #### [facility] [address] [place] [address] MCV (RBC) [Entitic vol] 88.3 fL Normal 80.0-100.0 F [facility] Comment on above: Performed By: #### 2 492626, 6355943, 2105053, 18721147, 9459697, 8791653 #### [facility] [address] [place] [address] Platelet mean volume (Bld) [Entitic vol] 8.3 fL Normal 6.4-10.8 [facility] Comment on above: Performed By: #### 2 498127, 9002890, 3008677, 58633585, 7482265, 8509118 #### [facility] [address] [place] [address] Platelets (Bld) [#/Vol] 188.0 E9/L Normal 150.0-500.0 [facility] Comment on above: Performed By: #### 2 987942, 6117528, 4449076, 32440159, 0933773, 7566147 #### [facility] [address] [place] [address] RBC (Bld) [#/Vol] 4.7 E12/L Normal 4.3-5.9 [facility] Comment on above: Performed By: #### 2 998444, 3875093, 6764977, 67831379, 8010306, 1297373 #### [facility] [address] [place] [address] WBC corrected for nucl RBC Auto (Bld) [#/Vol] 8.4 E9/L Normal 4.0-11.0 [facility] Comment on above: Performed By: #### 2 264662, 7159337, 0653573, 93927362, 5710018, 0844362 #### [facility] [address] [place] [address] CMPon 12-19-2020 Albumin [Mass/Vol] 4.2 g/dL Normal 3.3-5.0 [facility] Comment on above: Performed By: #### 2 956220, 6562455, 0702329, 66012105, 4868199, 8916918 ####[facility] [address] [place] [address] Albumin/Globulin (S) [Mass conc ratio] 1.0 Low 1.1-2.2 [facility] Comment on above: Performed By: #### 2 769686, 3110652, 2221240, 61199510, 0552199, 5514413 ####[facility] [address] [place] [address] ALP [Catalytic activity/Vol] 44 Int._Unit/L Normal 21-98 [facility] Comment on above: Performed By: #### 2 384797, 8537940, 8760646, 92705493, 0608927, 8053620 ####[facility] [address] [place] [address] ALT No additional P-5'-P [Catalytic activity/Vol] 22 Int._Unit/L Normal 6-46 [facility] Comment on above: Performed By: #### 2 824910, 5510871, 0089949, 10328254, 7703885, 6838431 ####[facility] [address] [place] [address] Anion gap [Moles/Vol] 14 mmol/L Normal 6-16 [facility] Comment on above: Performed By: #### 2 426689, 3979953, 5466537, 21247313, 1421592, 3373850 ####[facility] [address] [place] [address] AST [Catalytic activity/Vol] 18 Int._Unit/L Normal 5-43 [facility] Comment on above: Performed By: #### 2 646128, 7725591, 4929295, 11438170, 0366426, 3544337 ####[facility] [address] [place] [address] Bilirubin [Mass/Vol] 0.8 mg/dL Normal 0.0-1.1 [facility] Comment on above: Performed By: #### 2 839741, 1123854, 8227293, 30734650, 9871289, 6557743 ####[facility] [address] [place] [address] Calcium [Mass/Vol] 8.9 mg/dL Normal 8.9-11.1 [facility] Comment on above: Performed By: #### 2 765262, 0382889, 4712022, 00501854, 3705922, 7565245 ####[facility] [address] [place] [address] Chloride [Moles/Vol] 103 mmol/L Normal 101-111 [facility] Comment on above: Performed By: #### 2 976610, 7527505, 4392349, 23962873, 8517864, 8822010 ####[facility] [address] [place] [address] CO2 [Moles/Vol] 25 mmol/L Normal 21-31 [facility] Comment on above: Performed By: #### 2 818186, 9547615, 8302065, 83573342, 8607224, 2945849 ####[facility] [address] [place] [address] Creatinine [Mass/Vol] 0.5 mg/dL Normal 0.5-1.3 [facility] Comment on above: Performed By: #### 2 613489, 5107622, 6309565, 53478537, 6672219, 5493573 ####[facility] [address] [place] [address] Globulin (S) [Mass/Vol] 4.0 g/dL Normal 1.4-4.0 F [facility] Comment on above: Performed By: #### 2 431887, 5613799, 8067514, 90868552, 3792137, 1183029 ####[facility] [address] [place] [address] Glucose [Mass/Vol] 90 mg/dL Normal 55-199 [facility] Comment on above: Result Comment: If t his glucose result represents a fasting glucose, interpretation should refer to the following reference range: 55-99 mg/dL Performed By: #### 2 523191, 1067822, 3567301, 15028309, 7154029, 8129826 ####[facility] [address] [place] [address] Potassium [Moles/Vol] 3.8 mmol/L Normal 3.5-5.3 [facility] Comment on above: Performed By: #### 2 954011, 8828455, 5310893, 17441805, 3704973, 8723195 ####[facility] [address] [place] [address] Protein [Mass/Vol] 8.2 g/dL High 6.0-7.8 [facility] Comment on above: Performed By: #### 2 260486, 8019028, 4211104, 55393673, 2575605, 2833546 ####[facility] [address] [place] [address] Sodium [Moles/Vol] 138 mmol/L Normal 135-145 [facility] Comment on above: Performed By: #### 2 578871, 1671523, 0329080, 77049104, 2401985, 0105577 ####[facility] [address] [place] [address] Urea nitrogen [Mass/Vol] 6 mg/dL Normal 5-21 [facility] Comment on above: Performed By: #### 2 335653, 8432169, 4721043, 47939721, 1291511, 3761516 ####[facility] [address] [place] [address] Urea nitrogen/Creatinine [Mass ratio] 12 No Units Normal 10-20 [facility] Comment on above: Performed By: #### 2 901349, 4723183, 4928384, 48735466, 8905039, 0971214 ####[facility] [address] [place] [address] CT Abdomen/Pelvis w/o Contra ston 12-19-2020 CT [...] and spleen are not included within the hwdke-rc-sehg of this renal stone protocol study. The [...] Signature): 12/19/2020 7:54 pm Signed by: Reuben oWodruff M.D. Transcribed by: LILY Technologist: JAY Technical Comments Rectal Contrast Given? No Oral contrast amount in ml's: [address] [facility] Consent for Treatmenton 12-05 Consent for Treatment [id number] #1.00CD:[address] [facility] ED Clinical Summaryon 2020 ED Clinical Summary [place] [id number] ED Clinical Summary Person Information Name: FUNMILAYO CONWAY Mariah/[facility] Age: 30 Years : 1990 Sex: Female Language: Maltese PCP: Maki VELA PA-C Marital Status: Phone: [phone] Visit Id: Visit Reason: Vomiting; Back pain; Headache; NAUSEA AND VOMITTING SENT BY PCP Speciality: Acuity: 3 Enc Type: Emergency Med Service: Emergency Arrival: 12/19/2020 16:38:33 Discharge: LOS: 000 03:58 Checkin: 12/19/2020 16:38:33 Checkout: 12/19/2020 20:36:01 Dispo Type: Admitted as IP to this [facility] EVENTS: Event Name Event Status Request [...] 12/19/2020 20:36:01 12/19/2020 20:36:01 12/19/2020 20:36:01 ADDRESS: [address] [place] [address] [address] [facility] [id number] PHYS DOC NOTES: MEDICAL INFORMATION: Prescriptions Given: Medications to Continue with No Changes Other Medications cephalexin (Keflex 500 mg Cap) 1 Capsules By Mouth every 6 hours for 7 Days. Refills: 0. ondansetron (ondansetron 4 mg Dis Tab) 1 Tablets By Mouth every 6 hours as needed Nausea/Vomiting. Refills: 0. PATIENT EDUCATION INFORMATION: Instructions: Follow up: DIAGNOSIS: Normal [facility] ED Note-Physicianon 12-20-19 ED Note-Physician Basic [...] (12/19/20 17:3 (more content not included)... Normal [facility] Comment on above: Result Comment: Elec tronically Signed By: Shiva Ferreira DO\.br\Date and Time Signed: 12/19/20 19:19 EDT ED Patient Education Noteon 12-19-2020 ED Patient Education Note Normal [facility] ED Patient Summaryon 021 ED Patient Summary [place] [id number] Patient Discharge Instructions Person Information Name: FUNMILAYO CONWAY Age: 30 Years Arrival Date: 12/19/2020 16:38:33 Discharge Diagnosis: Primary Care Physician: Maki VELA PA-C Provider Information Primary Provider: Shiva Ferreira DO Advanced Case Manager:None The exam and treatment you received in the Emergency Department were for an urgent problem and are not intended as complete care. It is important that you follow up with a doctor, nurse practitioner, or physician?s nursing home assistant administrator for ongoing care. If your symptoms become [...] opioids can be used to help relieve bnelypkv-br-orbbmo pain and are often prescribed following a [...] addiction, tell your health home health care physician and ask for guidance or call [facility]?S National Helpline at 6-849-197-SOOW. v Source: [place] Department of Health and Human Services/Center for Disease Control & Prevention [facility] Medications Given: Medication Dose Route Sodium Chloride 0.9% 1000.00 m (more content not included)... Normal [facility] Lactic Acidon 12-19-2020 Lactate [Mass/Vol] 0.9 mmol/L Normal 0.5-2.2 [facility] Comment on above: Performed By: #### 2 011486, 3023285, 2336541, 40593435, 4855891, 5680800 #### [facility] [address] [place] [address] Lactate [Mass/Vol] 0.8 mmol/L Normal 0.5-2.2 [facility] Comment on above: Performed By: #### 2 975136 #### [facility] [address] [place] [address] Physician Orderon 12-19-2020 Physician Order [id number] 73#1.00CD:[address] [facility] Troponinon 12-19-2020 Troponin I.cardiac [Mass/Vol] 2.30 pg/mL Low 10.10-27.10 [facility] Comment on above: Result Comment: The 95% CI (Confidence Interval) PPV (Positive Predictive Value) for myocardial infarction in females is 38 pg/mL, in males 51 pg/mL. The results should be used in conjunction with clinical conditions of myocardial infarction. (Access High Sensitivity Troponin I Instructions For Use, Darling Kandaec, January 2018) Performed By: #### 2 524380, 1667231, 6739414, 31734099, 0066111, 3265758 ####[facility] [address] [place] [address] UA With Cult Reflexon 2020 Bacteria LM Ql (Urine sed) TRACE Normal Trace [facility] Comment on above: Performed By: #### 1 9979246 ####[facility] [address] [place] [address] Bilirubin Ql (U) Negative Normal Negative [facility] Comment on above: Performed By: #### 1 9104573 ####[facility] [address] [facility] [place] [address] Clarity (U) CLEAR Normal Clear [facility] Comment on above: Performed By: #### 1 7889763 ####[facility] [address] [facility] [place] [address] Color (U) YELLOW Normal Yellow [facility] Comment on above: Performed By: #### 1 8594717 ####[address] [place] [address] Epithelial cells.squamous LM.HPF (Urine sed) [#/Area] 3-4 Normal 0-[address] [facility] Comment on above: Performed By: #### 1 7941001 ####[facility] [address] [facility] [place] [address] Glucose Test strip (U) [Mass/Vol] Negative Normal Negative [facility] Comment on above: Performed By: #### 1 3282933 ####[facility] [address] [facility] [place] [address] Hemoglobin Ql (U) Negative Normal Negative [facility] Comment on above: Performed By: #### 1 4341668 ####[facility] [address] [facility] [place] [address] Ketones (U) [Mass/Vol] 1+ Abnormal Negative [facility] Comment on above: Performed By: #### 1 2470897 ####[place] [address] [place] [address] Farley.plasma/Farley. RBC (Bld) [Mass ratio] 0-3 Normal 0-3 [facility] Comment on above: Performed By: #### 1 3133371 ####[facility] [address] [facility] [place] [address] Mucus Ql (Urine sed) 1+ Normal [facility] Comment on above: Performed By: #### 1 3413545 ####[facility] [address] [place] [address] Nitrite Ql (U) Negative Normal Negative [facility] Comment on above: Performed By: #### 1 1021953 ####[address] [address] pH (U) 6.0 [pH] Invalid Interpretation Code 5.0-9.0 [facility] Comment on above: Performed By: #### 1 4883113 ####[address] [address] Protein (U) [Mass/Vol] TRACE Abnormal Negative [facility] Comment on above: Performed By: #### 1 5262968 ####[address] [address] Specific gravity (U) [Rel density] 1.025 Invalid Interpretation Code 1.005-1.030 [facility] Comment on above: Performed By: #### 1 9162623 ####[address] [address] Type of Urine collection method Clean Catch Normal [facility] Comment on above: Performed By: #### 1 0374400 ####[address] [address] Urobilinogen Qn (U) 0.2 {Tg'U}/dL Normal 0.0-1.0 [facility] Comment on above: Performed By: #### 1 4795603 ####[facility] [address] [place] [address] WBC Auto Ql (U) Negative Normal Negative [facility] Comment on above: Performed By: #### 1 8217849 ####[facility] [address] [place] [address] WBC LM.HPF (Urine sed) [#/Area] 0-5 Normal 0-5 [facility] Comment on above: Performed By: #### 1 4226060 ####[facility] [address] [place] [address] eGFRon 12-19-2020 GFR/1.73 sq M.predicted among blacks MDRD (S/P/Bld) [Vol rate/Area] mL/min/{1.73_m2} Normal >=59 [facility] Comment on above: Order Comment: Order added by Discern Expert. Result Comment: eGFR is race adjusted. AA=. Performed By: #### 2 805777, 4312397, 2515131, 22945083, 8202763, 3353367 ####[facility] [address] [place] [address] GFR/1.73 sq M.predicted among non-blacks MDRD (S/P/Bld) [Vol rate/Area] mL/min/{1.73_m2} Normal >=59 [facility] Comment on above: Order Comment: Order added by Discern Expert. 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 Kidney failure is indicated at less than 15 mL/min/1.73m2. Performed By: #### 2 429935, 9315146, 3638378, 83738689, 0392443, 6948283 ####[facility] [address] [place] [address] Consent for Treatmenton 12-05 Consent for Treatment [id number] #1.00CD:[address] [facility] Discharge Instructionson Discharge Instructions [id number]#1.00CD:[address] [facility] ED Clinical Summaryon 2020 ED Clinical Summary [address] [address] ED Clinical Summary Person Information Name: FUNMILAYO CONWAY [place] Age: 30 Years : 1990 Sex: Female Language: Maltese PCP: Maki VELA PA-C Marital Status: Phone: [phone] Visit Id: Visit Reason: Back pain; Headache; [...] 12/18/2020 03:52:27 12/18/2020 03:52:27 12/18/2020 03:52:27 ADDRESS: [address] [place] [address] [address] [id number] PHYS DOC NOTES: MEDICAL INFORMATION: Prescriptions Given: New Medications [id number], [address] [place], [place] [id number], [phone] cephalexin (Keflex 500 mg Cap) 1 Capsules By Mouth every 6 hours for 7 Days. Refills: 0. Medications to Continue with No Changes Other Medications ondansetron (ondansetron 4 mg Dis Tab) 1 Tablets By Mouth every 6 hours as needed Nausea/Vomiting. Refills: 0. PATIENT EDUCATION INFORMATION: Instructions: Pyelonephritis, Adult Follow up: With: Address: When: [address] [address] Business (1) In 3 days DIAGNOSIS: Acute pyelonephritis Normal [facility] ED Note-Nursingon 12-18-2020 ED Note-Nursing pt ambulatory to rr with steady gait w/o assistance. urine sample obtained. md at bedside for eval; awaiting further orders Normal [facility] ED Note-Physicianon 12-19-19 ED Note-Physician Basic Information [...] day(s), # 28 cap(s), Refills(s) 0, Pharmacy: [id number], 165, cm, 12/18/20 1:04:00 EDT, [...] VELA In [address] [place] [address]- Business (1) Additional Instructions: Patient Education Pyelonephritis, [...] Family History (more content not included)... Normal [facility] Comment on above: Result Comment: Elec tronically [...] you start to feel better. ? Take dflq-tbm-tabrrou and prescription medicines only as told by [...] 05/24/2006 Document Revised: 03/28/2019 Document Reviewed: 03/28/2019 [employer] Patient Education ? [address] [facility] ED Patient Summaryon 021 ED Patient Summary [place] [address] Patient Discharge Instructions Person Information Name: FUNMILAYO CONWAY Age: 30 Years Arrival Date: 12/18/2020 00:55:40 Discharge Diagnosis: Acute pyelonephritis Primary Care Physician: DANE COFFMAN, Maki Vazquez Provider Information Primary Provider: Darien Fischer DO Advanced Case Manager:None The exam and treatment you received in the Emergency Department were for an urgent problem and are not intended as complete care. It is important that you follow up with a doctor, nurse practitioner, or physician?s nursing home assistant administrator for ongoing care. If your symptoms become [...] Address: When: Maki VELA [address] [place] [address] Business (1) In 3 days In the event that this physician does not participate in your insurance network, please consult with your insurance company to find a nearby participating provider. Patient Education Materials: Pyelonephritis, Adult A MESSAGE TO ALL PATIENTS REGARDING OPIOIDS PRESCRIPTION OPIOIDS: WHAT YOU NEED TO KNOW Prescription opioids can be used to help relieve fcmurpza-hl-rcfllr pain and are often prescribed following a [...] addiction, tell your health home health care physician and ask for guidance or call [facility] National Helpline at 4-691-356-RCPM. r Source: Department of Health and [facility] (more content not included)... Normal [facility] U BetaHcg Qualon 12-18-2020 HCG.beta subunit (U) [Moles/Vol] Negative Normal [facility] Comment on above: Performed By: #### 2 6305179 ####[facility] [address] [place] [address] UA With Cult Reflexon 2020 Bacteria LM Ql (Urine sed) 3+ /HPF Abnormal Trace [facility] Comment on above: Performed By: #### 1 2468427, 6585516 ####[facility] [address] [place] [address] Bilirubin Ql (U) Negative Normal Negative [facility] Comment on above: Performed By: #### 1 0003673, 8455159 ####[facility] [address] [place] [address] Clarity (U) SL CLOUDY Abnormal Clear [facility] Comment on above: Performed By: #### 1 8546688, 7737587 ####[facility] [address] [place] [address] Color (U) YELLOW Normal Yellow [facility] Comment on above: Performed By: #### 1 9290688, 3058001 ####[facility] [address] [place] [address] Crystals LM Ql (Urine sed) Present Normal [facility] Comment on above: Performed By: #### 1 0358907, 8387133 ####[facility] [address] [place] [address] Epithelial cells.squamous LM.HPF (Urine sed) [#/Area] 0-2 Normal 0-[address] [facility] Comment on above: Performed By: #### 1 1031001, 0859188 ####[facility] [address] [place] [address] Glucose Test strip (U) [Mass/Vol] Negative Normal Negative [facility] Comment on above: Performed By: #### 1 6627426, 0698476 ####[facility] [address] [place] [address] Hemoglobin Ql (U) Negative Normal Negative [facility] Comment on above: Performed By: #### 1 0188950, 5020259 ####[facility] [address] [place] [address] Ketones (U) [Mass/Vol] Negative Normal Negative [facility] Comment on above: Performed By: #### 1 7351995, 1972641 ####[facility] [address] [place] [address] Farley.plasma/Farley. RBC (Bld) [Mass ratio] 0-3 Normal 0-3 [facility] Comment on above: Performed By: #### 1 0856227, 1052187 ####[facility] [address] [place] [address] Mucus Ql (Urine sed) 1+ Normal Fish [facility] Comment on above: Performed By: #### 1 1468486, 3482724 ####[facility] [address] [place] [address] Nitrite Ql (U) Negative Normal Negative [facility] Comment on above: Performed By: #### 1 4172455, 4063354 ####[address] [address] pH (U) 7.0 [pH] Invalid Interpretation Code 5.0-9.0 [facility] Comment on above: Performed By: #### 1 3139223, 3692989 ####[address] [address] Protein (U) [Mass/Vol] Negative Normal Negative [facility] Comment on above: Performed By: #### 1 3259169, 3662504 ####[address] [address] Specific gravity (U) [Rel density] 1.020 Invalid Interpretation Code 1.005-1.030 [facility] Comment on above: Performed By: #### 1 0443902, 3826369 ####[address] [address] Type of Urine collection method Clean Catch Normal [facility] Comment on above: Performed By: #### 1 8518348, 1226663 ####[address] [address] Urobilinogen Qn (U) 0.2 {Tg'U}/dL Normal 0.0-1.0 [facility] Comment on above: Performed By: #### 1 2570667, 6928880 ####[address] [address] WBC Auto Ql (U) Negative Normal Negative [facility] Comment on above: Performed By: #### 1 2995736, 6664276 ####[address] [address] WBC LM.HPF (Urine sed) [#/Area] 0-5 Normal 0-5 [facility] Comment on above: Performed By: #### 1 1897871, 3119522 ####[facility] [address] [place] [address] Social History Date Type Detail Facility Start: 03-18-2022 End: 12-30-2022 Sex Assigned At [facility] Start: 03-18-2022 End: 04-13-2023 Alcohol intake Ex-drinker (finding) [facility] Start: 03-18-2022 End: 12-30-2022 History of Social function [facility] Start: 02-13-2022 End: 02-23-2022 Exposure to SARS-CoV-2 (event) Yes [facility] Start: 11-12-2021 Alcohol intake Current drinke r of alcohol (finding) [facility] Start: 11-12-2021 History SDOH Alcohol Comment Not weekly [facility] Start: 09-15-2021 End: 12-01-2023 Tobacco smoking status NHIS Never smoked tobacco [facility] Start: 09-15-2021 End: 03-18-2022 Tobacco use and exposure Smokeless tobacco non-user [facility] Start: 09-05-2021 End: 03-26-2022 Exposure to SARS-CoV-2 (event) Not sure [facility] Start: 1990 Sex Assigned At Not on file C [facility] Start: 1990 Sex Assigned At Female F [facility] Tobacco smoking consumption unknown [facility] Other Phone (unformatted): [phone] Adult Depression Screening Assessment 0 [facility] Vital Signs Date Time Vital Sign Value Performing Clinician Facility 12-01-2023 10:47-0400 Body temperature 98.5 [degF] PHYSICIAN NO [facility] 12-01-2023 10:47-0400 Diastolic blood pressure 71 mm[Hg] PHYSICIAN NO [facility] 12-01-2023 10:47-0400 Heart rate 72 /min PHYSICIAN NO [facility] 12-01-2023 10:47-0400 Respiratory rate 18 /min PHYSICIAN NO [facility] 12-01-2023 10:47-0400 SaO2% (BldA) [Mass fraction] 97 % PHYSICIAN NO [facility] 12-01-2023 10:47-0400 Systolic blood pressure 121 mm[Hg] PHYSICIAN NO [facility] 12-01-2023 08:54-0400 Body height 167.64 cm PHYSICIAN NO [facility] 12-01-2023 08:54-0400 Body weight 100.3 kg PHYSICIAN NO [facility] 05-05-2023 15:54-0500 Body height 165.[address] Work Phone: [facility] 04-13-2023 10:23-0500 Body height 165.1 cm Jona Bermudez MD Work Phone: [facility] 04-13-2023 10:23-0500 Body weight 94.35 kg Jona Bermudez MD Work Phone: [facility] 12-30-2022 13:46-0400 Body height 165.[address] Work Phone: [facility] 12-30-2022 13:46-0400 Body weight 96.[address] Work Phone: [facility] 06-09-2022 09:24-0500 Body height 165.[address] Work Phone: [facility] 06-09-2022 09:24-0500 Body weight 118.[address] Work Phone: [facility] 03-18-2022 13:36-0400 Body height 165.1 cm Pacc 5 Work Phone: [facility] 03-18-2022 13:36-0400 Body temperature 97.39 [degF] Pacc 5 Work Phone: [facility] 03-18-2022 13:36-0400 Body weight 143.02 kg Pacc 5 Work Phone: [facility] 03-18-2022 13:36-0400 Diastolic blood pressure 81 mm[Hg] Pacc 5 Work Phone: [facility] 03-18-2022 13:36-0400 Heart rate 88 /min Pacc 5 Work Phone: [facility] 03-18-2022 13:36-0400 SaO2% (BldA) [Mass fraction] 97 % Pacc 5 Work Phone: [facility] 03-18-2022 13:36-0400 Systolic blood pressure 133 mm[Hg] Pacc 5 Work Phone: [facility] 03-18-2022 11:10-0400 Body height 165.5 cm Jona Bermudez MD Work Phone: [facility] 03-18-2022 11:10-0400 Body weight 141.98 kg Jona Bermudez MD Work Phone: [facility] 03-18-2022 11:10-0400 Diastolic blood pressure 76 mm[Hg] Jona Bermudez MD Work Phone: [facility] 03-18-2022 11:10-0400 Heart rate 78 /min Jona Bermudez MD Work Phone: [facility] 03-18-2022 11:10-0400 Systolic blood pressure 134 mm[Hg] Jona Bermudez MD Work Phone: [facility] 02-08-2022 15:57-0400 Body height 165.1 cm Marco A Hoy Other Phone: [facility] Other Phone (unformatted): [phone] 02-08-2022 15:57-0400 Body temperature 97.88 [degF] Marco A Hoy Other Phone: [facility] Other Phone (unformatted): [phone] 02-08-2022 15:57-0400 Body weight 150 kg Marco A Hoy Other Phone: [facility] Other Phone (unformatted): [phone] 02-08-2022 15:57-0400 Diastolic blood pressure 78 mm[Hg] Marco A Hoy Other Phone: [facility] Other Phone (unformatted): [phone] 02-08-2022 15:57-0400 Heart rate 77 /min Marco A Hoy Other Phone: [facility] Other Phone (unformatted): [phone] 02-08-2022 15:57-0400 Respiratory rate 20 /min Marco A Hoy Other Phone: [facility] Other Phone (unformatted): [phone] 02-08-2022 15:57-0400 SaO2% (BldA) [Mass fraction] 97 % Marco A Hoy Other Phone: [facility] Other Phone (unformatted): [phone] 02-08-2022 15:57-0400 Systolic blood pressure 143 mm[Hg] Marco A Hoy Other Phone: [facility] Other Phone (unformatted): [phone] 12-01-2021 09:31-0400 Body height 167.6 cm Davida Kaur [facility] 12-01-2021 09:31-0400 Body weight 149.69 kg [facility] 11-26-2021 13:50-0400 Diastolic blood pressure 84 mm[Hg] Mulugeta Salmon MD Work Phone: [facility] 11-26-2021 13:50-0400 Heart rate 76 /min Mulugeta Salmon MD Work Phone: [facility] 11-26-2021 13:50-0400 Respiratory rate 15 /min Mulugeta Salmon MD Work Phone: [facility] 11-26-2021 13:50-0400 SaO2% (BldA) [Mass fraction] 95 % Mulugeta Salmon MD Work Phone: [facility] 11-26-2021 13:50-0400 Systolic blood pressure 127 mm[Hg] Mulugeta Salmon MD Work Phone: [facility] 11-26-2021 13:30-0400 Body temperature 97 [degF] Mulugeta Salmon MD Work Phone: [facility] 11-12-2021 15:29-0400 Body height 167.6 cm [facility] 11-12-2021 15:29-0400 Body weight 148.96 kg [facility] 11-07-2021 09:230400 Body weight 148.78 kg Danny Critsina Work Phone: [facility] 10-27-2021 17:25-0400 Body height 165.1 cm Myron Jacome Other [employer] Other 10-27-2021 17:25-0400 Body mass index (BMI) [Ratio] 55.74 kg/m2 Myron Jacome Other [employer] Other 10-27-2021 17:25-0400 Body temperature 97.8 [degF] Myron Jacome Other [employer] Other 10-27-2021 17:25-0400 Body weight 151.96 kg Myron Jacome Other [employer] Other 10-27-2021 17:25-0400 SaO2% (BldA) [Mass fraction] 97 % Myron Jacome Other [employer] Other 09-15-2021 14:13-0400 Body height 167.2 cm Jona Bermudez MD Work Phone: [facility] 09-15-2021 14:13-0400 Body weight 152.86 kg Jona Bermudez MD Work Phone: [facility] 09-15-2021 14:13-0400 Diastolic blood pressure 86 mm[Hg] Jona Bermudez MD Work Phone: [facility] 09-15-2021 14:13-0400 Heart rate 92 /min Jona Bermudez MD Work Phone: [facility] 09-15-2021 14:13-0400 Systolic blood pressure 140 mm[Hg] Jona Bermudez MD Work Phone: [facility] Clinical Notes 12-20-2020 to 05-05-[address] - 05/05/2023 3:54 PM ESTCorcJona Anderson MD - 04/13/2023 10:20 AM ESTPatient Bita Lei RD - 12/30/2022 1:16 PM EDTPatient Instructions Note Date & Type Note Facility 05-05-2023 Note HNO ID: [id number] Author: Bita Vigil RD Service: ? Author Type: Registered Dietitian Type: Progress Notes Filed: 05/05/2023 5:03 PM Note Text: [facility] Nutrition Therapy: Virtual Consult - Re-assessment I have communicated my name and active licensure. The patient?s identity and physical location were verified at the time of this visit. Either the patient or their legal lifeline representatives has been informed of the risks and [...] Capsule with 45 mg Iron AND additional 7918-1456 mg per day Calcium Citrate 5. 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 [...] Multivitamin Capsule with 45 mg Iron AND 6770-5942 mg per day Calcium Citrate 5. Exercise: strive for daily activity. Increase as tolerated to goal of 200 minutes/week with combination of cardio and strength training exercise. 6. Practice mindful eating habits-take small portions, eat slowly, chew thoroughly Actions to implement interventions: see assessment Diet History: Breakfast - protein shake (20 gm protein powder, fairlife milk +/- PB2) OR eggs, breakfast meat [...] Physical limitations affect (more content not included)... [facility] 05-05-2023 Instructions Bita Vigil, TERENCE - 05/05/2023 [...] Capsule with 45 mg Iron AND additional 0020-9075 mg per day Calcium Citrate 5. Exercise: [...] last 30 minutes documented in this encounter [facility] 05-05-2023 History of Present illness Narrative [facility] Nutrition Therapy: Virtual Consult - Re-assessment I have communicated my name and active licensure. The patient s identity and physical location were verified at the time of this visit. Either the patient or their legal lifeline representatives has been informed of the risks and [...] Capsule with 45 mg Iron AND additional 9884-8007 mg per day Calcium Citrate 5. 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 [...] Multivitamin Capsule with 45 mg Iron AND 3290-5443 mg per day Calcium Citrate 5. Exercise: strive for daily activity. Increase as tolerated to goal of 200 minutes/week with combination of cardio and strength training exercise. 6. Practice mindful eating habits-take small portions, eat slowly, chew thoroughly Actions to implement interventions: see assessment Diet History: Breakfast - protein shake (20 gm protein powder, fairlife milk +/- PB2) OR eggs, breakfast meat [...] 3:54 PM PAGER: documented in this encounter [facility] 04-13-2023 Note HNO ID: [id number] Author: Jona Johns MD Service: ? Author Type: Physician Type: Progress Notes Filed: 04/13/2023 10:55 AM Note Text: Metabolic Surgery Postoperative Virtual Clinic Visit Name: Funmilayo Conway I have communicated my name and active licensure. The patient's identity and physical location were verified at the time of this visit. Either the patient or their legal lifeline representatives has been informed of the risks and [...] next week Jona Cormier MD, FACS, GABI president [facility] of [facility] Bariatric Fellowship Senior Java J2Ee DeveloperVice President Consulting Services laparoscopic Surgery Bariatric and Metabolic [place] [facility] 04-13-2023 History of Present illness Narrative Images from the original note were not included. Metabolic Surgery Postoperative Virtual Clinic Visit Name: Funmilayo Conway I have communicated my name and active licensure. The patient's identity and physical location were verified at the time of this visit. Either the patient or their legal lifeline representatives has been informed of the risks and [...] next week Jona Cormier MD, FACS, GABI president [facility] of [facility] Bariatric Fellowship Senior Java J2Ee DeveloperVice President Consulting Services laparoscopic Surgery Bariatric and Metabolic [place] documented in this encounter [facility] 12-30-2022 Note HNO ID: [id number] Author: Bita Vigil RD Service: ? Author [...] states doing well with no current concerns. 2413-8173 calories/day - advancing appropriately 80-100 protein intake/day - meeting needs 64+ fluid intake/day - meeting needs Taking all recommended vitamin/minerals from Bariatric Fusion 1/day MVI with 45 mg Fe, 600 mg Ca citrated BID, and biotin. No new labs. Resting Metabolic Rate: 1722 Energy needs for weight loss 5978-1189 (15-20 kcals/kg CBW) Protein needs: 85 grams [...] Multivitamin Capsule with 45 mg Iron AND 9860-5893 mg per day Calcium Citrate 5. Exercise: [...] 25 minutes - Group Bita Vigil RD [facility] 12-30-[address] - [...] Multivitamin Capsule with 45 mg Iron AND 0811-1249 mg per day Calcium Citrate 5. Exercise: strive for daily activity. Increase as tolerated to goal of 200 minutes/week with combination of cardio and strength training exercise. 6. Practice mindful eating habits-take small portions, eat slowly, chew thoroughly documented in this encounter [facility] 12-30-2022 History of Present illness Narrative [...] states doing well with no current concerns. 2954-9862 calories/day - advancing appropriately 80-100 protein intake/day - meeting needs 64+ fluid intake/day - meeting needs Taking all recommended vitamin/minerals from Bariat[facility] Fusion 1/day MVI with 45 mg Fe, 600 mg Ca citrated BID, and biotin. No new labs. Resting Metabolic Rate: 1722 Energy needs for weight loss 6938-0321 (15-20 kcals/kg CBW) Protein needs: 85 grams [...] Multivitamin Capsule with 45 mg Iron AND 0997-5223 mg per day Calcium Citrate 5. Exercise: [...] Bita Vigil RD documented in this encounter [facility] 09-09-2022 Note HNO ID: [id number] Author: Bita Vigil RD Service: ? Author [...] Rate: 1889 Energy needs for weight loss 1804-9007 (10-15 kcals/kg CBW) Protein needs: 85 grams [...] 32 minutes - Group Bita Vigil RD [facility] 06-09-2022 Note HNO ID: [id number] Author: Bita Vigil RD Service: ? Author Type: Registered Dietitian Type: Progress Notes Filed: 06/09/2022 10:17 AM Note Text: [facility] Nutrition Therapy: Virtual Consult - Re-assessment [...] mg Iron and Calcium Citrate (total of 7625-7011 mg/day) * take calcium citrate separately from [...] Rate: 1992 Energy needs for weight loss 0619-7865 (10-15 kcals/kg CBW) Protein needs: 85 grams [...] AM, 2 in the PM) www.bariatricfusion.com - [employer]: 1 Bariatric Multivitamin and Calcium Citrate (total of 6806-1263 mg/day) * take calcium citrate separately from Multivitamin with iron at least 2 hours apart and 4 hours apart from additional calcium www.SpeakUpareOfferboxx.SkyRecon Systems - Bariatric Choice: 4 Complete Multivitamins (chewables) per day Www.bariatricchoice.SkyRecon Systems - Bariatric Advantage: 2 Multivitamins and 3 Calcium Citrate Chewables per day * take calcium citrate separately from Multivitamin with iron at least 2 hours apart and 4 hours apart from additional calcium Www.bariatricadvantage.SkyRecon Systems 2. Protein goal: 85 grams protein/day [...] veggie OR chili Snack - none OR croatian yogurt Dinner - same as lunch Snack [...] 1-3 days/week) Anthropometrics: (more content not included)... [facility] 06-09-[address] - [...] mg Iron and Calcium Citrate (total of 9956-6053 mg/day) * take calcium citrate separately from [...] assessment (294 lbs) documented in this encounter [facility] 06-09-2022 History of Present illness Narrative [facility] Nutrition Therapy: Virtual Consult - Re-assessment [...] mg Iron and Calcium Citrate (total of 8694-3817 mg/day) * take calcium citrate separately from [...] Rate: 1992 Energy needs for weight loss 9995-5352 (10-15 kcals/kg CBW) Protein needs: 85 grams [...] in the AM, 2 in the PM) www.bariatricfusion.SkyRecon Systems - [employer] [facility]: 1 Bariatric Multivitamin and Calcium Citrate (total of 9525-0096 mg/day) * take calcium citrate separately from Multivitamin with iron at least 2 hours apart and 4 hours apart from additional calcium www.SendMe.SkyRecon Systems - Bariatric Choice: 4 Complete Multivitamins (chewables) per day Www.bariatricchoice.com - Bariatric Advantage: 2 Multivitamins and 3 Calcium Citrate Chewables per day * take calcium citrate separately from Multivitamin with iron at least 2 hours apart and 4 hours apart from additional calcium Www.bariatricadWhitfield Solarage.SkyRecon Systems 2. Protein goal: 85 grams protein/day [...] veggie OR chili Snack - none OR croatian yogurt Dinner - same as lunch Snack [...] 9:25 AM PAGER: documented in this encounter [facility] 05-17-2022 Note HNO ID: [id number] Author: Louise Tobin, PhD Service: ? Author Type: Psychologist Type: Progress Notes Filed: 05/18/2022 8:58 AM Note Text: [facility] DEPARTMENT OF PSYCHIATRY AND PSYCHOLOGY/[facility] Bariatric Behavioral Services Progress Note May 17, 2022 Billing codes: FAYE Tobin CPT Code: 23563 Brief Emotional/Behavioral Assessment with scoring/documentation [id number] Virtual GROUP PSYCHOTHERAPY Time initiated session: 8:30 AM to 9:30 AM Index Surgery Date of Surgery: 03/26/22 Surgeon: Dr. Cormier. Surgical Procedure: gastric bypass Current weight: 283 pounds Psychologist: Piedad Pt was seen in a virtual group. Participants were given the opportunity to discuss their experience since surgery and ask questions of other group members. The group director river restoration addressed questions and concerns related to psychological [...] hoped. She was able to navigate a [employer] well - I felt normal. Patient mood [...] BMI team Louise Tobin, PhD, RD, LD, [facility] ACS-CEP, Psychologist [facility] 05-07-2022 History of Present illness Narrative Metabolic Surgery Postoperative Virtual Clinic Visit Name: Funmilayo Conway This visit was performed virtually via OneTwoSee technology due to the COVID-19 epidemic as [...] & Bariatric Surgery Fellow Bariatric & Metabolic [place] [facility] STAFF ATTESTATION: I have reviewed the [...] which included preparing to see the patient, [id number] patient care, completing clinical documentation, obtaining and/or [...] Jona Cormier MD documented in this encounter [facility] 04-08-2022 History of Present illness Narrative BARIATRIC SURGERY CLINIC FOLLOW UP NOTE Clinic Date: 04/08/2022 Funmilayo Conway, 31 year old [address] [facility] [address] This visit was performed virtually (phone conversation) [...] 03/18/22: 143 kg (315 lb 4.8 oz). [place] weight: 68.5 kg (150 lb 15.1 oz) [...] rashes or skin changes. PHYSICAL EXAM: PHYSICAL EXAMINATION:[facility] 03/16/2021 GENERAL: No apparent distress. Pt [...] and Bariatric Surgery documented in this encounter [facility] 03-18-2022 History of Present illness Narrative BARIATRIC SURGERY PREOPERATIVE VISIT NOTE Name: Funmilayo Conway Medical Record: [id number] Encounter No.: [id number] Funmilayo Conway is a 31 year old [...] which included preparing to see the patient, [id number] patient care, completing clinical documentation, obtaining and/or reviewing separately obtained history, counseling and educating the patient/family/caregiver, and ordering medications, tests, or procedures. Prescriptions were explained and provided to the patient. Jona Bermudez MD Advanced Laparoscopic and Bariatric Surgery documented in this encounter [facility] 03-18-2022 Instructions Kwame Rodriguez APRN.INFO PRINT PRESS OPERATOR - 03/18/2022 2:08 PM EDT PATIENT PREOPERATIVE INSTRUCTIONS Jerardo Johns* has scheduled you for your procedure at this surgery center: [facility] [place] Scheduling Office: [phone] --[address] [place] [address]. Please read below carefully for your personalized [...] Procedures: - YOU MUST HAVE A RESPONSIBLE CONSULTING TECHNICAL DIRECTOR TAKE YOU HOME. A USED BUILDING MATERIALS YARD WORKER OR TILE SPRAYER CANNOT BE MADE A RESPONSIBLE CONSULTING TECHNICAL DIRECTOR. - We recommend that a responsible person [...] call the Wednesday before. Your surgeon s diploma medical assistant will tell you what time to call the office. - If you have not reached the departmental diploma medical assistant by 5 P.M., call [phone] after 5 P.M. the day before your surgery. Please be aware that emergency situations arise, which may delay or change your surgical time. If this happens, we will notify you as soon as possible and regret any inconvenience. If you already have an Advance Directive, please fax a copy to [phone] or email to for it to be [...] Kwame Rodriguez APRN.DNP documented in this encounter [facility] 03-18-2022 History and physical note HISTORY [...] fevers. Neuro: No history of TIA's, stroke, SPORTS THERAPIST tumor, impaired sensorium, hemiplegia, paraplegia or quadraplegia. No neurological symptoms or problems. Respiratory: No history of current cough or dyspnea, or pneumonia in the past 6 weeks. No history of respiratory/pulmonary symptoms or problems. Cardiovascular: No history of HTN requiring medication, no history of angina, CHF, AR, cardiac surgery or stents. Denies rest pain, [...] or incontinence,, stones or chronic kidney disease FOLLOW UP MANAGER: Negative for abnormal vaginal bleeding, abnormal vaginal [...] TIME: 1:59 PM documented in this encounter [facility] 03-13-2022 Miscellaneous Notes BMI SPECIALTY CARE [...] Jagruti Escobar RN documented in this encounter [facility] 03-10-[address] - [...] fish, low fat dairy - cottage cheese, Citizen Of [place] yogurt, light yogurt, cheese, ricotta cheese, nuts, [...] multiple options- look on website Www.celebratevitamins.com - [employer] Health: 1 Multivitamin and Calcium Citrate twice a day (total of 1936-8307 mg/day) * take calcium citrate separately from Multivitamin with iron at least 2 hours apart and 4 hours apart from additional calcium www.SendMe.SkyRecon Systems - Bariatric Choice: 4 complete multivitamins [...] weeks post op documented in this encounter [facility] 03-10-2022 History of Present illness Narrative [...] fish, low fat dairy - cottage cheese, Citizen Of [place] yogurt, light yogurt, cheese, ricotta cheese, nuts, [...] - Celebrate: multiple options- look on website Www.Invodoebratevitamins.SkyRecon Systems - [employer] [facility]: 1 Multivitamin and Calcium Citrate twice a day (total of 9147-2834 mg/day) * take calcium citrate separately from Multivitamin with iron at least 2 hours apart and 4 hours apart from additional calcium www.SendMe.SkyRecon Systems - Bariatric Choice: 4 complete multivitamins (chewables) per day Www.bariatricchoice.SkyRecon Systems - Bariatric Advantage: 2 Multivitamins and 3 Calcium Citrate Chewables per day * take calcium citrate separately from Multivitamin with iron at least 2 hours apart and 4 hours apart from additional calcium www.bariatricadWhitfield Solarage.SkyRecon Systems B complex with at least 75 [...] fish, low fat dairy - cottage cheese, Citizen Of [place] yogurt, light yogurt, cheese, ricotta cheese, nuts, [...] - Celebrate: multiple options- look on website Www.Invodoebratevitamins.SkyRecon Systems - [employer] [facility]: 1 Multivitamin and Calcium Citrate twice a day (total of 4559-0651 mg/day) * take calcium citrate separately from Multivitamin with iron at least 2 hours apart and 4 hours apart from additional calcium www.BubbleNoise - Bariatric Choice: 4 complete multivitamins (chewable) per day Www.bariatricchoice.SkyRecon Systems - Bariatric Advantage: 2 Multivitamins and 3 Calcium Citrate Chewable per day * take calcium citrate separately from Multivitamin with iron at least 2 hours apart and 4 hours apart from additional calcium www.bariatricadEcoSynth.SkyRecon Systems B complex with at least 75 [...] Group Signed by: Francoise Hardwick RDN, JOSE, MFNamita documented in this encounter [facility] 12-23-2021 Miscellaneous Notes The following approved [...] Danny Cristina DO documented in this encounter [facility] 12-03-2021 Nurse Note EKG completed and reviewed; documented in this encounter [facility] 12-01-2021 History of Present illness Narrative [...] AM, 2 in the PM) www.bariatricfusion.com - [employer] [facility]: 1 Bariatric Multivitamin and Calcium Citrate (total of 2935-2577 mg/day) * take calcium citrate separately from Multivitamin with iron at least 2 hours apart and 4 hours apart from additional calcium www.SpeakUpareOfferboxx.SkyRecon Systems - Bariatric Choice: 4 Complete Multivitamins (chewables) per day Www.bariatricchoRed Rover.SkyRecon Systems - Bariatric Advantage: 2 Multivitamins and [...] fish, low fat dairy - cottage cheese, Citizen Of [place] yogurt, light yogurt, cheese, ricotta cheese, nuts, [...] Calcium Citrate twice a day (total of 3427-8928 mg/day) * take calcium citrate separately from Multivitamin with iron at least 2 hours apart and 4 hours apart from additional calcium www.SendMe.SkyRecon Systems - Bariatric Choice: 4 complete multivitamins (chewables) per day Www.bariatricchoRed Rover.SkyRecon Systems - Bariatric Advantage: 2 Multivitamins and 3 Calcium Citrate Chewables per day * take calcium citrate separately from Multivitamin with iron at least 2 hours apart and 4 hours apart from additional calcium www.bariatricadWhitfield Solarage.SkyRecon Systems B complex with at least 75 [...] Davida Kaur MS,RD,CSOWM,LD documented in this encounter [facility] 11-28-2021 Note HNO ID: [id number] Author: Keira Salvador RDMS, RVT Service: Radiology Author Type: Presidential Helicopter Crew Chief Type: Progress Notes Filed: 11/28/2021 1:52 PM [...] RDMS, RVT November 28, 2021 1:52 PM [facility] 11-28-2021 History of Present illness [...] 2021 1:52 PM documented in this encounter [facility] 11-28-2021 Note HNO ID: [id number] Author: RT Leann(R) Service: ? Author Type: [...] RT Leann(R) November 28, 2021 12:58 PM [facility] 11-28-2021 History of Present illness [...] 2021 12:58 PM documented in this encounter [facility] 11-26-2021 History and physical note UPDATED [...] Pcp This is a virtual visit using [employer] video visit. It required patient-provider interaction for [...] fevers. Neurological: No history of TIA's, stroke, SPORTS THERAPIST tumor, impaired sensorium, hemiplegia, paraplegia or quadraplegia. No neurological symptoms or problems. Respiratory: No history of current cough or dyspnea, or pneumonia in the past 6 weeks. No history of respiratory/pulmonary symptoms or problems. Cardiovascular: No history of HTN requiring medication, no history of angina, CHF, AR, cardiac surgery or stents. Denies rest pain, [...] > 1 time per night or hematuria. FOLLOW UP MANAGER: Negative for abnormal vaginal bleeding, abnormal vaginal [...] or any previous visit (from the past 17494 hour(s)). Assessment Morbidly obese (HCC) Assessment: Body [...] or younger Non-male patient STOP-Bang Score: 3 [id number] Score: Age: <65 Sex: female CHF history: No Hypertension history: No Stroke/TIA/thromboembolism history: No Vascular disease history: No Diabetes history: No [id number] Score: 1 ASA Class: 3 ANESTHESIA FINDINGS: [...] PM PAGER/CONTACT #: documented in this encounter [facility] 11-12-2021 History and physical note Images from the original note were not included. HISTORY AND PHYSICAL EXAMINATION SERVICE DATE: 11/12/2021 SERVICE TIME: 3:26 PM PRIMARY CARE PHYSICIAN: Sharita Pcp This is a virtual visit using [employer] video visit. It required patient-provider interaction for [...] fevers. Neurological: No history of TIA's, stroke, SPORTS THERAPIST tumor, impaired sensorium, hemiplegia, paraplegia or quadraplegia. No neurological symptoms or problems. Respiratory: No history of current cough or dyspnea, or pneumonia in the past 6 weeks. No history of respiratory/pulmonary symptoms or problems. Cardiovascular: No history of HTN requiring medication, no history of angina, CHF, AR, cardiac surgery or stents. Denies rest pain, [...] > 1 time per night or hematuria. FOLLOW UP MANAGER: Negative for abnormal vaginal bleeding, abnormal vaginal [...] Prior to Admission medications as of 11/12/21 8946 Medication Sig Last Dose Taking FLUoxetine HCl [...] or any previous visit (from the past 71227 hour(s)). Assessment Morbidly obese (HCC) Assessment: Body [...] or younger Non-male patient STOP-Bang Score: 3 [id number] Score: Age: <65 Sex: female CHF history: No Hypertension history: No Stroke/TIA/thromboembolism history: No Vascular disease history: No Diabetes history: No [id number] Score: 1 ASA Class: 3 ANESTHESIA FINDINGS: [...] PM PAGER/CONTACT #: documented in this encounter [facility] 11-12-2021 Instructions Maria T Lares APRN.CNP - 11/12/2021 3:40 PM EDT PATIENT PREOPERATIVE INSTRUCTIONS Mulugeta Salmon MD has scheduled you for your procedure at this surgery center: [facility]: [phone] --[address] [place] [address]. Please enter through the entrance closest to [...] Procedures: - YOU MUST HAVE A RESPONSIBLE CONSULTING TECHNICAL DIRECTOR TAKE YOU HOME. A USED BUILDING MATERIALS YARD WORKER OR TILE SPRAYER CANNOT BE MADE A RESPONSIBLE CONSULTING TECHNICAL DIRECTOR. - We recommend that a responsible person [...] Advance Directive, please fax a copy to [phone] or email to for it to be [...] T Lares APRN.CNP documented in this encounter [facility] 11-07-2021 Instructions Danny Cristina, - 11/07/2021 9:39 AM EDT Lovely Conway , Thank you for completing your visit today and we welcome you to the surgical program. We are sure that you will still have some additional questions and encourage you to reach out to your care provider via Mychart OR your Patient Navigator. Patient Navigators are [...] free to ask for a hard copy. [email or web address] en Once you complete all of the requirements (testing, consultations, diet, etc) from each provider, please call [phone] and select option #5 to initiate insurance approval. Please note scheduling information It is important to keep track of your scheduled appointments to ensure successful completion of our surgical program. Any missed appointments can further delay your pre-surgical work-up. [facility] does offer an opt-in option for getting text message appointment reminders. Please follow the link below if you would like to opt into this service. [email or web address] As part of your surgical work up, [...] these tests. You may call your local [facility] to get an appointment. - Lab work- No appointment is needed for this, you may complete at any [facility]. These are usually fasting labs, please be sure to fast (only water permitted) for 10-12 hours prior to the test. -Sleep Study- Please call [phone] or [phone] to get this appointment set up. -Sleep Medicine Consult- (Only needed if sleep study confirms sleep apnea) Please call [phone] or [phone] to schedule an appointment. -Upper GI/ EGD- Please call [phone] to schedule. -Provider follow up visit- Please call [phone] OR [phone] to schedule. Any testing that is completed outside of [facility] will need faxed to [phone]. We look forward to working with you on this journey, Danny Cristina DO documented in this encounter [facility] 11-07-2021 History of Present illness Narrative [...] healthy diet. Since the visit with the puppet engineer, eating less starch, not skipping meals, and eating more vegetables. Characterization of diet:Structured. History of eating disorders: negative Previous Obesity Treatments: commercial diets and dietitian. Exercise: Regular exercise: walking 3 times a week Barriers to regular exercise? 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 NO STOP BANG 1. Snoring : [...] PCOS Vitamin D deficiency No history of AR, COPD, asthma, peptic ulcer disease, dyslipidemia, hypothyroidism, [...] Danny Cristina DO documented in this encounter [facility] 10-27-2021 Evaluation note Encounter Date Diagnosis [...] Patient care instructions given in writting by [facility] At [facility] document. [place] [facility] Other 04-12-2022 History of Present illness Narrative* Jagruti Escobar RN - 09/16/2021 9:47 AM EDT Opened in error. [facility] History of Present illness Narrative* Jona Bermudez MD - 09/15/2021 3:18 PM EDT Images from the original note were not included. [facility] DEPART[facility]GERY Jona Cormier M.D. [address] [place] [address], [place] [id number] NAME: Funmilayo Conway [facility] NO: [id number] DATE OF SERVICE: September 15, 2021 This [...] which included preparing to see the patient, [id number] patient care, completing clinical documentation, obtaining and/or reviewing separately obtained history, performing a medically appropriate examination, counseling and educating the pat ient/family/caregiver and ordering medications, tests, or procedures. Jona Bermudez MD Advanced Laparoscopic and Bariatric Surgery [facility] NoteChief Complaint consultation for GI complaints [...] Vaccine Date Status Com (more content not included)...[facility] CenterComment on above:Result Comment: Electronically Signed By: EDY JOYCE, Elmira Diamond\Date and Time Signed: 08/04/21 17:32 [id number] NoteAdmission Information Admitting Physician - Neela LIM [...] voiding. Patient is eager to be discharged tojer[facility]. --Other chronic medical conditions as outlined in note. Refer to d/c plan below: -Case reviewed and discussed with Dr. Graham who is in agreement with current d/c plan. Case will be reviewed and discussed with PCP or teacher of the emotionally disturbed MD once the hospital roller presser operator is able to reach him/her. I [...] made to ensure accuracy, however, inadvertently computerized welding rod coater mistakes may be present. Significant Findings CT [...] and spleen are not included within the [id number] of this renal stone protocol study. The [...] Ferreira DO 12/20/20 07:33: (more content not included)...[facility] CenterComment on above:Result Comment: Electronically Signed By: Prerna CAVANAUGH\.br\Date and Time Signed: 12/20/20 10:28 EDT\.br\Electronically Co-Signed By: Jarred GRAHAM MD\.br\Date and Time Co-Signed: 01/13/21 08:22 [id number] NoteMicrobiology PROCEDURE: Blood Culture Charcoal [R1] SOURCE: Blood BODY SITE: Arm L COLLECTED DATE/TIME: 12/19/2020 17:25 EDT RECEIVED DATE/TIME: 12/19/2020 17:39 EDT START DATE/TIME: 12/19/2020 17:39 EDT FREE TEXT SOURCE: IV start Jhon DO, Shiva S. Jhon DO, Shiva S. FINAL REPORTS Final Report [] Verified Date/Time: 12/26/2020 18:00 EDT No growth at 7 days. Performing Locations R1: [facility], [address] [place] [address], [address] [place] [address], IzndsmSt. Mary'S Medical CenterComment on above:Performed By: #### [id number] #### [address] [id number] NoteMicrobiology PROCEDURE: Blood Culture Charcoal [R1] SOURCE: Blood BODY SITE: Arm R COLLECTED DATE/TIME: 12/19/2020 17:30 EDT RECEIVED DATE/TIME: 12/19/2020 17:39 EDT START DATE/TIME: 12/19/2020 17:39 EDT FREE TEXT SOURCE: Jhon GOMEZ, Shiva S. Jhon DO, Shiva S. FINAL REPORTS Final Report [] Verified Date/Time: 12/26/2020 18:00 EDT No growth at 7 days. Performing Locations R1: This test was performed at: [facility], [address] [place] [address], [address] [place] [address], QwdicpSt. Mary'S Medical CenterComment on above:Performed By: #### [id number] ####[facility] [address] [place] [address] [phone] Marsha Flores entered room at this time [...] needs. Anticipated discharge home 12/20. CRM remains available.[facility] CenterComment on above:Result Comment: Electronically Signed By: Janusz SOLIS, Sandra Dobbins.lito\Date and Time Signed: 12/20/20 08:26 [id number] Note Chief Complaint From home, patient complains [...] 12.7 % (12/19/20 17:30:00) Platelet: 188 E9/L (12/19/20:30:00) MPV: 8.3 fL (12/19/20:30:00) Neutro Auto: 61.5 % (12/19/20 17:30:00) Lymph Auto: 29.4 % (12/19/20 17:30:00) Woodford Auto: 7.8 % (12/19/20 17:30:00) Eos Auto: 0.6 % (12/19/20:30:00) Basophil Auto: 0.7 % (12/19/20:30:00) Neutro Absolute: 5.1 E9/L (12/19/20:30:00) Lymph Absolute: 2.5 E9/L (12/19/20 17:30:00) Woodford Absolute: 0.7 E9/L (12/19/20 17:30:00) Eos Absolute: 0.1 E9/L (12/19/20 17:30:00) Basophil Absolute: 0.1 E9/L (12/19/20:30:00) Glucose Lvl: 90 mg/dL (12/19/20:30:00) BUN: 6 mg/dL (12/19/20:30:00) Creatinine: 0.5 mg/dL (12/19/20:30:00) eGFR: >60 (12/19/20:30:00) eGFR AA: >60 (12/19/20:30:00) BUN/Creat Ratio: 12 (12/19/20:30:00) Sodium Lvl: 138 mmol/L (12/19/20:30:00) Potassium Lvl: 3.8 mmol/L (12/19/20::00) Chloride: 103 mmol/L (12/19/20::00) CO2: 25 mmol/L (12/19/20:30:00) AGAP: 14 mEq/L (12/19/20:30:00) Calcium Lvl: 8.9 mg/dL (12/19/20:30:00) Alk Phos: 44 Int._Unit/L (12/19/20:30:00) ALT: 22 Int._Unit/L (12/19/20:30:00) AST: 18 Int._Unit/L (12/19/20:30:00) Total Protein: 8.2 gm/dL High (12/19/20 17:30:00) Albumin Lvl: 4.2 gm/dL (12/19/20:30:00) Globulin: 4 [...] See #1 3. L (more content not included)...[facility] CenterComment on above: Result Comment: Electronically Signed By: Neela LIM DO.lito\Date and Time Signed: 12/20/20 05:29 EDTEvaluation note* Diagnosis Morbid obesity due to excess calories (HCC)- Primary History of delivery Other postprocedural status [facility] Diagnosis Pre-op exam- Primary Preoperative examination, unspecified [facility]* Diagnosis Morbid obesity (HCC)- Primary Morbid obesity [facility]* Diagnosis Class 3 severe obesity with body mass index (BMI) of 50.0 to 59.9 in adult, unspecified obesity type, unspecified whether serious comorbidity present (HCC)- Primary PCOS (polycystic ovarian syndrome) Polycystic ovaries [facility]* Diagnosis Preoperative examination- Primary Preoperative examination, unspecified Morbidly obese (HCC) Morbid obesity Fatty liver Other chronic nonalcoholic liver disease Anxiety and depression Dysthymic disorder documented in this encounter [facility] note* Diagnosis Pre-op exam Preoperative examination, unspecified documented in this encounter [facility] note* Diagnosis Class 3 severe obesity with body mass index (BMI) of 50.0 to 59.9 in adult, unspecified obesity type, unspecified whether serious comorbidity present (HCC) documented in this encounter [facility] note* Diagnosis Class 3 severe obesity with body mass index (BMI) of 50.0 to 59.9 in adult, unspecified obesity type, unspecified whether serious comorbidity present (HCC)- Primary Dietary counseling and surveillance Dietary surveillance and counseling PCOS (polycystic ovarian syndrome) Polycystic ovaries documented in this encounter [facility] note* Diagnosis Class 3 severe obesity with body mass index (BMI) of 50.0 to 59.9 in adult, unspecified obesity type, unspecified whether serious comorbidity present (HCC) documented in this encounter [facility] note* Diagnosis Morbid obesity (HCC)- Primary Morbid obesity documented in this encounter [facility] noteNo assessment information availableTrihealth [facility] Work Phone: Evaluation note* Diagnosis BMI 50.0-59.9, adult (HCC)- Primary Body Mass Index 50.0-59.9, adult Dietary counseling Dietary surveillance and counseling Morbid obesity (HCC) Morbid obesity documented in this encounter [facility] note* Diagnosis Anxiety and depression Dysthymic disorder Morbid obesity (HCC) Morbid obesity documented in this encounter [facility] note* Diagnosis BMI 50.0-59.9, adult (HCC)- Primary Body Mass Index 50.0-59.9, adult PCOS (polycystic ovarian syndrome) Polycystic ovaries History of delivery Other postprocedural status Fatty liver Other chronic nonalcoholic liver disease Morbid obesity (HCC) Morbid obesity documented in this encounter [facility] note* Diagnosis Status post gastric bypass for obesity- Primary Bariatric surgery status Obesity, Class III, BMI 40-49.9 (morbid obesity) (HCC) Morbid obesity documented in this encounter [facility] note* Diagnosis History of Cathie-en-Y gastric bypass- Primary Bariatric surgery status documented in this encounter [facility] note* Diagnosis S/P gastric bypass- Primary Bariatric surgery status Impaired intestinal absorption Unspecified intestinal malabsorption Dietary counseling and surveillance Dietary surveillance and counseling documented in this encounter [facility] note* Diagnosis S/P gastric bypass- Primary Bariatric surgery status Dietary counseling and surveillance Dietary surveillance and counseling documented in this encounter [facility] note* Diagnosis S/P gastric bypass- Primary Bariatric surgery status documented in this encounter [facility] note* Diagnosis S/P gastric bypass- Primary Bariatric surgery status Impaired intestinal absorption Unspecified intestinal malabsorption Dietary counseling and surveillance Dietary surveillance and counseling documented in this encounter [facility] general Narrative - Reported* Type Description Date Medical History PCOS Medical History chronic depression Medical History anxiety Surgical History tonsillectomy and adenoidectomy x2 Surgical History wisdom teeth Surgical History cyst removal from left foot Surgical History nasal surgery Surgical History C section Hospitalization History see above [employer] Other [employer]email for referral (narrative)* Outpatient Procedure (Routine) - Pending Review Specialty Diagnoses / Procedures Referred By Vipin kunz Referred To Contact [facility] Diagnoses Morbid obesity due to excess calories (HCC) Procedures EGD BARIATRIC ESOPHAGOGASTRODUODENOSC OPY TRANSORAL DIAGNOSTIC Jona Johns MD [address] [place] [address] [facility] [place] [facility] [place] [address] Referral ID Status Reason Start Date Expiration Date Visits Requested Visits Authorized [id number] Pending Review Auto-Generat ed Referral 09/29/2021 09/15/2022 1 1 [facility] for referral (narrative)* Outpatient Procedure (Routine) - Authorized Specialty Diagnoses / Procedures Referred By Vipin kuzn Referred To Contact [facility] Diagnoses Pre-op exam Procedures EGD DIAGNOSTIC ESOPHAGOGASTRODUODENOSC OPY TRANS[place] [address] [place] [address] [facility] [place] [address] [place] [address] Referral ID Status Reason Start Date Expiration Date Visits Requested Visits Authorized [id number] Authorized Auto-Generat ed Referral 09/16/2021 09/16/2022 1 1 [facility] for referral (narrative)* Diagnostic Procedure Only (Routine) - Pending Review Specialty Diagnoses / Procedures Referred By Vipin t Referred To Contact [facility] Diagnoses Class 3 severe obesity with body mass index (BMI) of 50.0 to 59.9 in adult, unspecified obesity type, unspecified whether serious comorbidity present (HCC) Procedures US ABD RT UPPER QUADRANT US ABDOMINAL REAL TIME W/IMAGE LIMITED Danny Cristina DO [address] [place] [address] [facility] Referral ID Status Reason Start Date Expiration Date Visits Requested Visits Authorized [id number] Pending Review Auto-Generat ed Referral 11/07/2021 12/07/2022 1 1 * Outpatient Procedure (Routine) - Pending Review Specialty Diagnoses / Procedures Referred By Vipin kunz Referred [facility] Diagnoses Class 3 severe obesity with body mass index (BMI) of 50.0 to 59.9 in adult, unspecified obesity type, unspecified whether serious comorbidity present (HCC) Procedures ECG COMPLETE ECG ROUTINE ECG W/LEAST 12 LDS W/I&R Danny Cristina DO [address] [facility] [place] [address] [facility] [place] [address] [place] [address] Referral ID Status Reason Start Date Expiration Date Visits Requested Visits Authorized [id number] Pending Review Auto-Generat ed Referral 11/07/2021 11/07/2022 1 1 [facility] for referral (narrative)* Outpatient Procedure (Routine) - Closed Specialty Diagnoses / Procedures Referred By Vipin kunz Referred To Contact [facility] Diagnoses Pre-op exam Procedures EGD DIAGNOSTIC ESOPHAGOGASTRODUODENOSC OPY TRANS[place] [address] [place] [id number] [facility] [place] [address] [place] [address] Referral ID Status Reason Start Date Expiration Date V isits Requested Visits Authorized [id number] Closed Auto-Generate d Referral 09/16/2021 09/16/2022 1 1 [facility] for referral (narrative)* Diagnostic Procedure Only (Routine) - Closed Specialty Diagnoses / Procedures Referred By Vipin kunz Referred To Contact [facility] Diagnoses Class 3 severe obesity with body mass index (BMI) of 50.0 to 59.9 in adult, unspecified obesity type, unspecified whether serious comorbidity present (HCC) Procedures US ABD RT UPPER QUADRANT US ABDOMINAL REAL TIME W/IMAGE LIMITED Danny Cristina DO [address] [place] [address] [facility] Referral ID Status Reason Start Date Expiration Date V isits Requested Visits Authorized [id number] Closed Auto-Generate d Referral 11/07/2021 12/07/2022 1 1 [facility] for visit Narrative* Outpatient Procedure (Routine) - Closed Specialty Diagnoses / Procedures Referred By Vipin kunz Referred To Contact [facility] Diagnoses Pre-op exam Procedures EGD DIAGNOSTIC ESOPHAGOGASTRODUODENOSC OPY TRANSOR[place] [address] [place] [id number] [facility] [address] [place] [address] Referral ID Status Reason Start Date Expiration Date V isits Requested Visits Authorized [id number] Closed Auto-Generate d Referral 09/16/2021 09/16/2022 1 [facility] Diagnostic Procedure Only (Routine) - Closed Specialty Diagnoses / Procedures Referred By Vipin kunz Referred To Contact [facility] Diagnoses Class 3 severe obesity with body mass index (BMI) of 50.0 to 59.9 in adult, unspecified obesity type, unspecified whether serious comorbidity present (HCC) Procedures US ABD RT UPPER QUADRANT US ABDOMINAL REAL TIME W/IMAGE LIMITED IsmaelDanny alarcon, DO [address] [place] [address] [facility] Referral ID Status Reason Start Date Expiration Date V isits Requested Visits Authorized [id number] Closed Auto-Generate d Referral 11/07/2021 12/07/2022 1 1 [facility] Summary Purpose Family History No Family History Records FoundNo Family History Records FoundNo Family History Records FoundNo Family History Records FoundNo Family History Records FoundNo Family History Records FoundNo Family History Records FoundNo Family History Records Found Advance Directives No Advanced Directives Records FoundDocuments on File Type Date Recorded 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 Advance Directive(s) 10/27/2021 6:10 PM Documents on File Type Date Recorded 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 Advance Directive(s) 10/27/2021 6:10 PM Advance Directive Response Recorded Date/ Time Advance Directives No July 04, 2019 11:44am Chief Complaint and Reason for Visit Chief Complaint wellness Chief Complaint abd cramping, 8 wks preg Additional Source Comments INFORMATION SOURCE (unrecogn ized section and content) DATE CREATED AUTHOR 09/01/2021 [facility] DATE CREATED AUTHOR AUTHOR'S ORGANIZ ATION 11/13/2021 [facility] DATE CREATED AUTHOR AUTHOR'S ORGANIZ ATION 12/05/2021 [facility] DATE CREATED AUTHOR AUTHOR'S ORGANIZ ATION 01/08/2022 [facility] DATE CREATED AUTHOR AUTHOR'S ORGANIZ ATION [facility]/10/2022 [facility] DATE CREATED AUTHOR AUTHOR'S ORGANIZ ATION 02/13/2022 [facility] DATE CREATED AUTHOR AUTHOR'S ORGANIZ ATION 05/08/2023 [facility] DATE CREATED AUTHOR AUTHOR'S ORGANIZ ATION 12/07/2023 [facility] Specialists EPIC Source Comments (unrecognize d section and content) In the event this informatio n is protected by the Federal Confidentiality of Alcohol and Drug Abuse Patient Records regulations: The Federal rules restrict any use of the information to criminally investigate or prosecute any alcohol or drug abuse patient.[facility] the event this information is protected by the Federal Confidentiality of Alcohol and Drug Abuse Patient Records regulations: The Federal rules restrict any use of the information to criminally investigate or prosecute any alcohol or drug abuse patient.[facility] the event this information is protected by the Federal Confidentiality of Alcohol and Drug Abuse Patient Records regulations: The Federal rules restrict any use of the information to criminally investigate or prosecute any alcohol or drug abuse patient.[facility] the event this information is protected by the Federal Confidentiality of Alcohol and Drug Abuse Patient Records regulations: The Federal rules restrict any use of the information to criminally investigate or prosecute any alcohol or drug abuse patient.[facility] HospitalIn the event this information is protected by the Federal Confidentiality of Alcohol and Drug Abuse Patient Records regulations: The Federal rules restrict any use of the information to criminally investigate or prosecute any alcohol or drug abuse patient.[facility] HospitalIn the event this information is protected by the Federal Confidentiality of Alcohol and Drug Abuse Patient Records regulations: The Federal rules restrict any use of the information to criminally investigate or prosecute any alcohol or drug abuse patient.[facility] HospitalIn the event this information is protected by the Federal Confidentiality of Alcohol and Drug Abuse Patient Records regulations: The Federal rules restrict any use of the information to criminally investigate or prosecute any alcohol or drug abuse patient.[facility] HospitalIn the event this information is protected by the Federal Confidentiality of Alcohol and Drug Abuse Patient Records regulations: The Federal rules restrict any use of the information to criminally investigate or prosecute any alcohol or drug abuse patient.[facility] the event this information is protected by the Federal Confidentiality of Alcohol and Drug Abuse Patient Records regulations: The Federal rules restrict any use of the information to criminally investigate or prosecute any alcohol or drug abuse patient.[facility] the event this information is protected by the Federal Confidentiality of Alcohol and Drug Abuse Patient Records regulations: The Federal rules restrict any use of the information to criminally investigate or prosecute any alcohol or drug abuse patient.[facility] HospitalIn the event this information is protected by the Federal Confidentiality of Alcohol and Drug Abuse Patient Records regulations: The Federal rules restrict any use of the information to criminally investigate or prosecute any alcohol or drug abuse patient.[facility] HospitalIn the event this information is protected by the Federal Confidentiality of Alcohol and Drug Abuse Patient Records regulations: The Federal rules restrict any use of the information to criminally investigate or prosecute any alcohol or drug abuse patient.[facility] HospitalIn the event this information is protected by the Federal Confidentiality of Alcohol and Drug Abuse Patient Records regulations: The Federal rules restrict any use of the information to criminally investigate or prosecute any alcohol or drug abuse patient.[facility] HospitalIn the event this information is protected by the Federal Confidentiality of Alcohol and Drug Abuse Patient Records regulations: The Federal rules restrict any use of the information to criminally investigate or prosecute any alcohol or drug abuse patient.[facility] HospitalIn the event this information is protected by the Federal Confidentiality of Alcohol and Drug Abuse Patient Records regulations: The Federal rules restrict any use of the information to criminally investigate or prosecute any alcohol or drug abuse patient.[facility] HospitalIn the event this information is protected by the Federal Confidentiality of Alcohol and Drug Abuse Patient Records regulations: The Federal rules restrict any use of the information to criminally investigate or prosecute any alcohol or drug abuse patient.[facility] HospitalIn the event this information is protected by the Federal Confidentiality of Alcohol and Drug Abuse Patient Records regulations: The Federal rules restrict any use of the information to criminally investigate or prosecute any alcohol or drug abuse patient.[facility] the event this information is protected by the Federal Confidentiality of Alcohol and Drug Abuse Patient Records regulations: The Federal rules restrict any use of the information to criminally investigate or prosecute any alcohol or drug abuse patient.[facility] the event this information is protected by the Federal Confidentiality of Alcohol and Drug Abuse Patient Records regulations: The Federal rules restrict any use of the information to criminally investigate or prosecute any alcohol or drug abuse patient.[facility] the event this information is protected by the Federal Confidentiality of Alcohol and Drug Abuse Patient Records regulations: The Federal rules restrict any use of the information to criminally investigate or prosecute any alcohol or drug abuse patient.[facility] the event this information is protected by the Federal Confidentiality of Alcohol and Drug Abuse Patient Records regulations: The Federal rules restrict any use of the information to criminally investigate or prosecute any alcohol or drug abuse patient.[facility] the event this information is protected by the Federal Confidentiality of Alcohol and Drug Abuse Patient Records regulations: The Federal rules restrict any use of the information to criminally investigate or prosecute any alcohol or drug abuse patient.[facility] the event this information is protected by the Federal Confidentiality of Alcohol and Drug Abuse Patient Records regulations: The Federal rules restrict any use of the information to criminally investigate or prosecute any alcohol or drug abuse patient.[facility] the event this information is protected by the Federal Confidentiality of Alcohol and Drug Abuse Patient Records regulations: The Federal rules restrict any use of the information to criminally investigate or prosecute any alcohol or drug abuse patient.[facility] Reason for Visit (unrecogniz ed section and content) Reason Comments New Patient Reason Comments Obesity Reason Comments Anesthesia Consult Reason Comments Radiology XR Reason Onset Date Comments Patient Education 12/01/2021 Reassessment 12/01/2021 Reason Comments EKG Specialty Diagnoses / Procedures Referred By Vipin t Referred To [facility] Diagnoses Class 3 severe obesity with body mass index (BMI) of 50.0 to 59.9 in adult, unspecified obesity type, unspecified whether serious comorbidity present (HCC) Procedures ECG COMPLETE ECG ROUTINE ECG W/LEAST 12 LDS W/I&R Danny Cristina, DO [address] [facility] [address] [id number] [facility] [place] [address] [place] [address] Referral ID Status Reason Start Date Expiration Date V isits Requested Visits Authorized [id number] Closed Auto-Generate d Referral 11/07/2021 11/07/2022 1 [...] December 01, 2023 End: 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, 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[employer] Relationship Specialty Start Date End Date Pcp, No PCP - General 10/27/21 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 [employer] Relationship Specialty Start Date End Date Pcp, No PCP - General 10/27/21 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 [employer] Relationship Specialty Start Date End Date Pcp, No PCP - General 10/27/21 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 [employer] Relationship Specialty Start Date End Date Marco A Byrd MD [address] [facility] [place] [phone] PCP - General Family Practice 11/26/21 Supervisor [employer]ave Fin[employer] Relationship Specialty Start Date End Date Marco A Byrd MD [address] [facility] [address] PCP - General Family Practice 11/26/21 Supervisor Stave Finishing Relationship Specialty Start Date End Date Marco A Byrd MD [address] [facility] [phone] PCP - General Family Practice 11/26/21 Supervisor [employer]ave Finishing Relationship Specialty Start Date End Date Marco A Byrd MD [address] [facility] [phone] PCP - General Family Practice 11/26/21 Supervisor [employer]ave Fin[employer] Relationship Specialty Start Date End Date Marco A Byrd MD [address] [facility] [phone] PCP - General Family Practice 11/26/21 Supervisor Stave Finishing Relationship Specialty Start Date End Date Marco A Byrd MD [address] [facility] [address] PCP - General Family Practice 11/26/21 Supervisor [employer]ave Fin[employer] Relationship Specialty Start Date End Date Marco A Byrd MD [address] [facility] [phone] PCP - General Family Practice 11/26/21 Team Status: Inactive Member Role Status Dates PHYSICIAN NO FAMILY Primary Care Provider Active Danis Tubbs , DO [facility] Attending Provider Active 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 [employer] Relationship Specialty Start Date End Date Marco A Byrd MD [address] [facility] [phone] PCP - General Family Medicine 11/26/21 Supervisor [employer]ave Fin[employer] Relationship Specialty Start Date End Date Marco A Byrd MD [address] [facility] [address] PCP - General Family Medicine 11/26/21 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 [employer]ave Finishing Relationship Specialty Start Date End Date Marco A Byrd MD [address] [facility] [place] [address] PCP - General Family Medicine 11/26/21 Supervisor Stave Finishing Relationship Specialty Start Date End Date Marco A Byrd MD [address] [facility] [address] PCP - General Family Medicine 11/26/21 Supervisor Stave Finishing Relationship Specialty Start Date End Date Marco A Byrd MD [address] [facility] [address] PCP - General Family Medicine 11/26/21 Supervisor Stave Finishing Relationship Specialty Start Date End Date Marco A Byrd MD [address] [facility] [place] [address] PCP - General Family Medicine 11/26/21 Supervisor Stave Finishing Relationship Specialty Start Date End Date Marco A Byrd MD [address] [facility] [place] [address] PCP - General Family Medicine 11/26/21 Supervisor Stave Finishing Relationship Specialty Start Date End Date Marco A Byrd MD [address] [facility] [place] [address] PCP - General Family Medicine 11/26/21 Goals [...] BE BASED ON THE PRIMARY CLINICAL RECORDS. [facility]. provides no warranty or guarantee of the accuracy or completeness of information in this document.
== END 2023-12-07 09:46 | disposition home or self-care (01) ==
LOC: PST 09:46
PROVIDERS: Visit Provider Obstetrics & Gynecology
DX: Z01.818 Encounter for other preprocedural examination (principal); O02.1 Missed abortion

== ENCOUNTER 2023-12-08 06:10 | Day surgery (SDC) | payer OTHER, SELFPAY ==
[2023-12-07 09:56] VITALS: BP 121/61; PULSE 68; TEMP 36.3; O2SAT 100; BMI 39.3
[2023-12-08] VITALS (10 sets, daily range): BP systolic 99–143; BP diastolic 54–76; PULSE 61–87; TEMP 36.5–36.8; O2SAT 96–100; BMI 39.3
--- OUTSIDE RECORDS SUMMARY | 2023-12-08 06:13 | XMS_ITS | CCD ---
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 Lymphocytes/100 WBC (Bld) 43.3 % Normal [facility] Comment on above: Order Comment: Speci men Type: BLOOD SPECIMEN Ordering Facility: [facility] Address: [address] [place], [place] [address] Performed By: #### 5 7021-8 #### [facility] [id number] [address] [place] [address] [place] MCH (RBC) [Entitic mass] 29.9 pg Normal 26.0-34.0 [facility] Comment on above: Order Comment: Speci men Type: BLOOD SPECIMEN Ordering Facility: [facility] Address: [address] [place], [place] [address] Performed By: #### 5 7021-8 #### [facility] IA [id number] [address] [place] [address] [place] MCHC (RBC) [Mass/Vol] 32.5 g/dL Normal 30.5-36.0 [facility] Comment on above: Order Comment: Speci men Type: BLOOD SPECIMEN Ordering Facility: [facility] Address: [address] [place], [place] [address] Performed By: #### 5 7021-8 #### [facility] IA [id number] [address] [place] [address] [place] MCV (RBC) [Entitic vol] 91.9 fL Normal 80.0-100.0 [facility] Comment on above: Order Comment: Speci men Type: BLOOD SPECIMEN Ordering Facility: [facility] Address: [address] [place], [place] [address] Performed By: #### 5 7021-8 #### [facility] IA [id number] [address] [place] [address] [place] Monocytes (Bld) [#/Vol] 0.29 10*3/uL Normal <0.87 [facility] Comment on above: Order Comment: Speci men Type: BLOOD SPECIMEN Ordering Facility: [facility] Address: [address] [place], [place] [address] Performed By: #### 5 7021-8 #### [facility] IA [id number] [address] [place] Monocytes/100 WBC (Bld) 5.5 % Normal [facility] Comment on above: Order Comment: Speci men Type: BLOOD SPECIMEN Ordering Facility: [facility] Address: [address] [place], [place] [address] Performed By: #### 5 7021-8 #### [facility] IA [id number] [address] [place] [address] [place] Neutrophils (Bld) [#/Vol] 2.52 10*3/uL Normal 1.45-7.50 [facility] Comment on above: Order Comment: Speci men Type: BLOOD SPECIMEN Ordering Facility: [facility] Address: [address] Performed By: #### 5 7021-8 #### [facility] CLIA [id number] [address] [place], [place] [address] [place] [address] [place] Neutrophils/100 WBC (Bld) 47.4 % Normal [facility] Comment on above: Order Comment: Speci men Type: BLOOD SPECIMEN Ordering Facility: [facility] Address: [address] [place], [place] [address] Performed By: #### 5 7021-8 #### [facility] CLIA [id number] [address] [place] [address] [place] Nucleated RBC (Bld) [#/Vol] 10*3/uL Normal <0.01 [facility] Comment on above: Order Comment: Speci men Type: BLOOD SPECIMEN Ordering Facility: [facility] Address: [address] [place], [place] [address] Performed By: #### 5 7021-8 #### [facility] IA [id number] [address] [place] [address] [place] Nucleated RBC/100 WBC (Bld) [Ratio] 0.0 /100 WBC Normal [facility] Comment on above: Order Comment: Speci men Type: BLOOD SPECIMEN Ordering Facility: [facility] Address: [address] [place], [place] [address] Performed By: #### 5 7021-8 #### [facility] CLIA [id number] [address] [facility] [place] [address] [place] Platelet mean volume (Bld) [Entitic vol] 11.2 fL Normal 9.0-12.7 [facility] Comment on above: Order Comment: Speci men Type: BLOOD SPECIMEN Ordering Facility: [facility] Address: [address] [place], [place] [address] Performed By: #### 5 7021-8 #### [facility] CLIA [id number] [address] [place] [address] [place] Platelets (Bld) [#/Vol] 168 10*3/uL Normal 150-400 [facility] Comment on above: Order Comment: Speci men Type: BLOOD SPECIMEN Ordering Facility: [facility] Address: [address] [place] [address] Result Comment: Resu lts checked and verified. No clot detected Performed By: #### 5 7021-8 #### [facility] CLIA [id number] [address] [place] [address] [place] RBC (Bld) [#/Vol] 4.79 10*6/uL Normal 3.90-5.20 [facility] Comment on above: Order Comment: Speci men Type: BLOOD SPECIMEN Ordering Facility: [facility] Address: [address] [place] [address] Performed By: #### 5 7021-8 #### [facility] CLIA [id number] [address] [place] [address] OF [facility] WBC (Bld) [#/Vol] 5.31 10*3/uL Normal 3.70-11.00 [facility] Comment on above: Order Comment: Speci men Type: BLOOD SPECIMEN Ordering Facility: [facility] Address: [address] [place] [address] Performed By: #### 5 7021-8 #### [facility] CLIA [id number] [address] [place] [address] [place] Comprehensive metabolic 2000 panelon 12-01-2021 Albumin [Mass/Vol] 4.5 g/dL Normal 3.9-4.9 [facility] Comment on above: Order Comment: Speci men Type: BLOOD SPECIMEN Ordering Facility: [facility] Address: [address] [place] [address] Performed By: #### 2 4323-8, 3016-3, 26456-2, 47296-0 #### [facility] CLIA [id number] [address] [place] [address] [place] ALP [Catalytic activity/Vol] 46 U/L Normal 34-123 [facility] Comment on above: Order Comment: Speci men Type: BLOOD SPECIMEN Ordering Facility: [facility] Address: [address] [place] [address] Performed By: #### 2 4323-8, 3016-3, 36675-8, 98202-0 #### [facility] CLIA [id number] [address] [place] [address] [place] ALT [Catalytic activity/Vol] 21 U/L Normal 7-38 [facility] Comment on above: Order Comment: Speci men Type: BLOOD SPECIMEN Ordering Facility: [facility] Address: [address] [place] [address] Performed By: #### 2 4323-8, 3016-3, 84758-0, 44520-7 #### [facility] CLIA [id number] [address] [place], [place] [address] [place] [address] STATES [place] [facility] Anion gap [Moles/Vol] 10 mmol/L Normal 9-18 [facility] Comment on above: Order Comment: Speci men Type: BLOOD SPECIMEN Ordering Facility: [facility] Address: [address] [place] [address] Performed By: #### 2 4323-8, 3016-3, 32713-9, 87432-8 #### [facility] CLIA [id number] [address] [place] [address] [place] [facility] AST [Catalytic activity/Vol] 18 U/L Normal 13-35 [facility] Comment on above: Order Comment: Speci men Type: BLOOD SPECIMEN Ordering Facility: [facility] Address: [address] [place], [place] [address] Performed By: #### 2 4323-8, 3016-3, 82245-2, 95775-1 #### [facility] CLIA [id number] [address] [place] [address] [place] Bilirubin [Mass/Vol] 0.3 mg/dL Normal 0.2-1.3 [facility] Comment on above: Order Comment: Speci men Type: BLOOD SPECIMEN Ordering Facility: [facility] Address: [address] [place] [address] Performed By: #### 2 4323-8, 3016-3, 34998-6, 57360-3 #### [facility] CLIA [id number] [address] [place] [address] [place] Calcium [Mass/Vol] 9.2 mg/dL Normal 8.5-10.2 [facility] Comment on above: Order Comment: Speci men Type: BLOOD SPECIMEN Ordering Facility: [facility] Address: [address] [place] [address] Performed By: #### 2 4323-8, 3016-3, 67395-5, 21539-9 #### [facility] CLIA [id number] [address] [place] [address] [place] Chloride [Moles/Vol] 104 mmol/L Normal 97-105 [facility] Comment on above: Order Comment: Speci men Type: BLOOD SPECIMEN Ordering Facility: [facility] Address: [address] [place] [address] Performed By: #### 2 4323-8, 3016-3, 36850-9, 88670-3 #### [facility] CLIA [id number] [address] [place] [address] [place] CO2 [Moles/Vol] 23 mmol/L Normal 22-30 [facility] Comment on above: Order Comment: Speci men Type: BLOOD SPECIMEN Ordering Facility: [facility] Address: [address] [place], [place] [address] Performed By: #### 2 4323-8, 3016-3, 37466-8, 68053-7 #### [facility] CLIA [id number] [address] [place] [address] [place] Creatinine [Mass/Vol] 0.57 mg/dL Low 0.58-0.96 [facility] Comment on above: Order Comment: Speci men Type: BLOOD SPECIMEN Ordering Facility: [facility] Address: [address] [place], [place] [address] Performed By: #### 2 4323-8, 3016-3, 84075-5, 89546-3 #### [facility] CLIA [id number] [address] [place] [address] [place] ESTIMATED GLOMERULAR FILTRATION RATE 124 mL/min/1.73m??? Normal >=60 [facility] Comment on above: Order Comment: Rangel zamora Type: BLOOD SPECIMEN Ordering Facility: [facility] Address: [address] [place], [place] [address] Result Comment: Aleksandra mated Glomerular Filtration Rate [...] GFR. Performed By: #### 2 4323-8, 3016-3, 02240-5, 49546-5 #### [facility] CLIA [id number] [address] [place] [address] [place] Glucose [Mass/Vol] 112 mg/dL High 74-99 [facility] Comment on above: Order Comment: Rangel zamora Type: BLOOD SPECIMEN Ordering Facility: [facility] Address: [address] [place] [address] Result Comment: The [place] Diabetes Association (ADA) provides guidance for cutoff [...] Standards of Medical Care in Diabetes 2016, [place] Diabetes Association. Diabetes Care. 2016.39(Suppl 1). Performed By: #### 2 4323-8, 3016-3, 27849-1, 39596-2 #### [facility] CLIA [id number] [address] [place] [address] [place] Potassium [Moles/Vol] 4.5 mmol/L Normal 3.7-5.1 [facility] Comment on above: Order Comment: Speci men Type: BLOOD SPECIMEN Ordering Facility: [facility] Address: [address] [place] [phone] Performed By: #### 2 4323-8, 3016-3, 60514-3, 43727-0 #### [facility] CLIA [id number] [address] [place] [address] [place] Protein [Mass/Vol] 7.4 g/dL Normal 6.3-8.0 [facility] Comment on above: Order Comment: Speci men Type: BLOOD SPECIMEN Ordering Facility: [facility] Address: [address] [place] [phone] Performed By: #### 2 4323-8, 3016-3, 01469-2, 50115-7 #### [facility] CLIA [id number] [address] [place] [address] [place] Sodium [Moles/Vol] 137 mmol/L Normal 136-144 [facility] Comment on above: Order Comment: Speci men Type: BLOOD SPECIMEN Ordering Facility: [facility] Address: [address] [place] [phone] Performed By: #### 2 4323-8, 3016-3, 43115-0, 40715-5 #### [facility] CLIA [id number] [address] [place] [address] [place] Urea nitrogen [Mass/Vol] 12 mg/dL Normal 7-21 [facility] Comment on above: Order Comment: Speci men Type: BLOOD SPECIMEN Ordering Facility: [facility] Address: [address] [place] [phone] Performed By: #### 2 4323-8, 3016-3, 43019-0, 83252-0 #### [facility] CLIA [id number] [address] [place] [address] [place] Ferritin SerPl-ncon 2021 Ferritin [Mass/Vol] 177.6 ng/mL Normal 14.7-205.1 [facility] Comment on above: Order Comment: Speci men Type: BLOOD SPECIMEN Ordering Facility: [facility] Address: [address] [place] [address] Performed By: #### 2 4323-8, 6-3, 41153-5, 19127-4 #### [facility] CLIA [id number] [address] [place] [address] [place] Folate SerPl-mCncon 12-02-19 Folate [Mass/Vol] 9.3 ng/mL Normal >4.7 [facility] Comment on above: Order Comment: Speci men Type: BLOOD SPECIMEN Ordering Facility: [facility] Address: [address] [place] [address] Performed By: #### 2 4323-8, 6-3, 82689-5, 68209-5 #### [facility] CLIA [id number] [address] [place] [address] [place] HbA1c (Bld)on 12-01-2021 Average glucose Estimated from glycated hemoglobin (Bld) [Mass/Vol] 108 mg/dL Normal [facility] Comment on above: Order Comment: Speci men Type: BLOOD SPECIMEN Ordering Facility: [facility] Address: [address] [place] [address] Result Comment: eAG: (Estimated average glucose) is a calculated value from HgbA1c and is financial foundations representative of the average blood glucose level in the last 2-3 month period. Performed By: #### 2 4323-8, 3016-3, 60925-6, 18279-0 #### [facility] CLIA [id number] [address] [place] [address] [place] HbA1c (Bld) [Mass fraction] 5.4 % Normal 4.3-5.6 [facility] Comment on above: Order Comment: Speci men Type: BLOOD SPECIMEN Ordering Facility: [facility] Address: [address] [place] [address] Result Comment: [place] Diabetes Association guidelines indicate that patients with HgbA1c in the range 5.7-6.4% are at increased risk for development of diabetes, and intervention by lifestyle modification may be beneficial. HgbA1c greater or equal to 6.5% is considered diagnostic of diabetes. Performed By: #### 2 4323-8, 3016-3, 29639-9, 27986-0 #### [facility] CLIA [id number] [address] [place] [address] [place] Iron and Iron binding capaci [facility] 12-01-2021 Iron [Mass/Vol] 69 ug/dL Normal 41-186 [facility] Comment on above: Order Comment: Speci men Type: BLOOD SPECIMEN Ordering Facility: [facility] Address: [address] [place] [address] Performed By: #### 2 4323-8, 3016-3, 03526-3, 27926-2 #### [facility] CLIA [id number] [address] [place] [address] [place] Iron binding capacity [Mass/Vol] 296 ug/dL Normal 232-386 [facility] Comment on above: Order Comment: Speci [facility] Type: BLOOD SPECIMEN Ordering Facility: [facility] Address: [address] [place], [place] [address] Performed By: #### 2 4323-8, 3016-3, 82659-0, 36374-8 #### [facility] CLIA [id number] [address] [facility] [place] [address] [place] [facility] Iron/TIBC [Molar ratio] 23.3 % Normal 15.0-57.0 [facility] Comment on above: Order Comment: Speci men Type: BLOOD SPECIMEN Ordering Facility: [facility] Address: [address] [place] [address] Performed By: #### 2 4323-8, 3016-3, 45116-2, 69097-6 #### [facility] CLIA [id number] [address] [facility] [place] [address] [facility] [place] Lipid 1996 panelon 2 Cholesterol [Mass/Vol] 229 mg/dL High <200 [facility] Comment on above: Order Comment: Rangel noah Type: BLOOD SPECIMEN Ordering Facility: [facility] Address: [address] [place] [address] Result Comment: <200 mg/dL, Desirable 200-239 mg/dL, Borderline high >239 mg/dL, High Performed By: #### 2 4323-8, 3016-3, 07610-1, 76933-7 #### [facility] CLIA [id number] [address] [place] [address] [place] Cholesterol in HDL [Mass/Vol] 39 mg/dL Low >39 [facility] Comment on above: Order Comment: Rangel [facility] Type: BLOOD SPECIMEN Ordering Facility: [facility] Address: [address] [place], [place] [address] Result Comment: 40-5 9 mg/dL, Acceptable >59 mg/dL, High: Negative risk factor for coronary heart disease <40 mg/dL, Low: Positive risk factor for coronary heart disease Performed By: #### 2 4323-8, 3016-3, 74403-7, 53207-6 #### [facility] CLIA [id number] [address] [place] [address] [facility] Cholesterol in LDL [Mass/Vol] 155 mg/dL High <100 [facility] Comment on above: Order Comment: [facility] Type: BLOOD SPECIMEN Ordering Facility: [facility] Address: [address] Result Comment: <100 mg/dL, Optimal 100-129 mg/dL, Near optimal/above optimal 130-159 mg/dL, Borderline high 160-189 mg/dL, High >189 mg/dL, Very high Secondary prevention optimal LDL Cholesterol levels are recommended to be < 70 mg/dL Performed By: #### 2 4323-8, 3016-3, 54128-5, 25628-1 #### [facility] CLIA [id number] [address] [facility] [place] [address] [facility] [place] Cholesterol in LDL/Cholesterol in HDL [Mass ratio] 3.97 {ratio} High <2.54 [facility] Comment on above: Order Comment: Rangel zamora Type: BLOOD SPECIMEN Ordering Facility: [facility] Address: [address] [address] Result Comment: Refe rence: 1. National Cholesterol Education Program ATP III Guideline At-A-Glance Quick Desk Reference: National Heart, Lung, and Blood [place]. National Institutes of Health. 2001: NIH Publication No. 01-3305. 2. An International Atherosclerosis Society position paper: global recommendations for the management of dyslipidemia: executive summary, Atherosclerosis. 2014: 232(2):410-413. Performed By: #### 2 4323-8, 3016-3, 50075-9, 96593-6 #### [facility] CLIA [id number] [facility] [address] [place] Cholesterol in VLDL [Mass/Vol] 35 mg/dL High <30 [facility] Comment on above: Order Comment: Rangel zamora Type: BLOOD SPECIMEN Ordering Facility: [facility] Address: [address] [place] [address] Performed By: #### 2 4323-8, 3016-3, 42607-2, 43645-5 #### [facility] CLIA [id number] [facility] [place] [address] [place] Cholesterol non HDL [Mass/Vol] 190 mg/dL High <130 [facility] Comment on above: Order Comment: Rangel zamora Type: BLOOD SPECIMEN Ordering Facility: [facility] Address: [address] [address] Result Comment: <130 mg/dL, Optimal 130-159 mg/dL, Near optimal/above optimal 160-189 mg/dL, Borderline high 190-219 mg/dL, High >219 mg/dL, Very high Secondary prevention optimal non HDL Cholesterol levels are recommended to be <100 mg/dL Performed By: #### 2 4323-8, 3016-3, 93752-0, 82779-3 #### [facility] CLIA [id number] [address] [place] [address] [place] Cholesterol.total/Tia sterol in HDL [Mass ratio] 5.87 {ratio} High <5.10 [facility] Comment on above: Order Comment: Speci men Type: BLOOD SPECIMEN Ordering Facility: [facility] Address: [address] [place], [place] [address] Performed By: #### 2 4323-8, 3016-3, 85929-6, 96916-5 #### [facility] CLIA [id number] [address] [place], [place] [address] [place] [address] [place] FASTING TIME 12 hrs Normal [facility] Comment on above: Order Comment: Speci men Type: BLOOD SPECIMEN Ordering Facility: [facility] Address: [address] [place] [address] Performed By: #### 2 4323-8, 6-3, 80211-6, 41800-1 #### [facility] [place] [id number] [address] [place], [place] [address] [place] [address] [place] Triglyceride [Mass/Vol] 173 mg/dL High <150 [facility] Comment on above: Order Comment: Speci men Type: BLOOD SPECIMEN Ordering Facility: [facility] Address: [address] [place], [place] [address] Result Comment: <150 mg/dL, Normal 150-199 mg/dL, Borderline high 200-499 mg/dL, High >499 mg/dL, Very high Performed By: #### 2 4323-8, 3016-3, 62762-6, 03385-4 #### [facility] CLIA [id number] [address] [place] [address] [place] [facility] Parathyrin.intact [Mass/Vol] 42 pg/mL Normal 15-65 [facility] Comment on above: Order Comment: Speci men Type: BLOOD SPECIMEN Ordering Facility: [facility] Address: [address] [place], [place] [address] Performed By: #### 2 731-8 #### [facility] CLIA [id number] [address] [facility] [place] [address] [place] TSH SerPl-aCncon 12-01-2021 TSH Qn 3.170 m[IU]/L Normal 0.270-4.200 [facility] Comment on above: Order Comment: Rangel zamora Type: BLOOD SPECIMEN Ordering Facility: [facility] Address: [address] [place] [address] Result Comment: If t he patient is , TSH reference range varies by gestational period: First Trimester (weeks 9-12): 0.180-2.990 mIU/L Second Trimester: 0.110-3.980 mIU/L Third Trimester: 0.480-4.710 mIU/L Franco Callejas et al. A Practical Approach for the Verifications and Determination of Site- and Trimester-Specific Reference Intervals for Thyroid Function tests in . Thyroid, 2019:29:3:412-420. Varun Blevins, et al. 2017 Guidelines of the [place] [employer] for the Diagnosis and Management of Thyroid Disease during and the . Thyroid, 2017:27:3:315-389. Performed By: #### 2 4323-8, 3016-3, 18851-4, 57644-2 #### [facility] CLIA [id number] [address] [facility] [address] [place] VITAMIN B1 (THIAMINE), WHOLE BLOODon 12-01-2021 Thiamine (Bld) [Moles/Vol] 134.6 nmol/L Normal 84.3-213.3 [facility] Comment on above: Order Comment: Rangel zamora Type: BLOOD SPECIMEN Ordering Facility: [facility] Address: [address] [place] [address] Result Comment: This assay measures the concentration of thiamine diphosphate (TDP), the primary active form of vitamin B1. Approximately 90 percent of vitamin B1 present in whole blood is TDP. Thiamine and thiamine monophosphate, which comprise the remaining 10 percent, are not measured. This test was developed and its performance characteristics determined by [facility] [place] ([facility]). It has not been cleared or approved by the FDA. [facility] is regulated under CLIA as qualified to perform high-complexity testing. This test is used for clinical purposes. It should not be regarded as investigational or for research. Performed By: #### B 1WB #### [facility] CLIA [id number] [address] [facility] [address] [place] [address] [place] [facility] Vit B12 [facility]Pl[facility] 022 Cobalamin (Vitamin B12) [Mass/Vol] 304 pg/mL Normal 232-1,245 [facility] Comment on above: Order Comment: Speci men Type: BLOOD SPECIMEN Ordering Facility: [facility] Address: [address] [place] [address] Performed By: #### 2 4323-8, 3016-3, 08561-5, 25923-2 #### [facility] CLIA [id number] [address] [facility] [place] No Panel Informationon 11-28 [facility] US ABD RIGHT UPPER QUADRANTo n [...] biliary ductal dilatation. The gallbladder is unremarkable. Machining And Assembly Supervisor: ROSA Transcribe Date/Time: Nov 28 2021 2:20P Dictated by : CJ QUINTERO MD This examination was interpreted and the report reviewed and electronically signed by: CJ QUINTERO MD on Nov 28 2021 2:21PM EST [id number] [facility] XR CHEST 2V FRONTAL/LATon XR [...] tissues: Unremarkable. IMPRESSION: No acute radiographic abnormality. Machining And Assembly Supervisor: ROSA Transcribe Date/Time: Nov 28 2021 1:32P Dictated by : KOMAL VINES MD This examination was interpreted and the report reviewed and electronically signed by: KOMAL VINES MD on Nov 28 2021 1:33PM EST [id number] [facility] ANES POSTPROC EVALon 022 ANES POSTPROC EVAL HNO ID: [id number] Author: Fannie Tanner MD Service: Anesthesiology Author Type: Physician Type: Anesthesia Postprocedure Evaluation Filed: 11/26/2021 3:12 PM Note Text: POST ANESTHESIA EVALUATION NOTE : 1990 Procedure Summary Date: 11/26/21 Room / Location: Procedures Anesthesia Start: 1315 Anesthesia Stop: 1328 Procedure: EGD DIAGNOSTIC Diagnosis: Pre-op exam (Heartburn) Scheduled Providers: Mulugeta Salmon MD; Fannie Tanner MD; Maria Alejandra Callejas APRN.RUSTIC TERRAZZO SETTER Responsible Provider: Fannie Tanner MD Anesthesia Type: [...] November 26, 2021 TIME: 3:12 PM CSN: [id number] [facility] ANES PRE-OPon 11-26-2021 ANES PRE-OP HNO ID: [id number] Author: Fannie Tanner MD Service: Anesthesiology Author Type: Physician Type: Anesthesia Preprocedure Evaluation Filed: 11/26/2021 12:27 PM Note Text: ANESTHESIOLOGY DAY OF SURGERY NOTE : 1990 Procedure Information Date/Time: 11/26/21 1245 Scheduled providers: Mulugeta Salmon MD; Fannie Tanner MD; Maria Alejandra Callejas APRN.RUSTIC TERRAZZO SETTER Procedure: EGD DIAGNOSTIC Location: Procedures Estimated body [...] and consent discussed: yes. Patient / Responsible Alliance Party agrees to proceed: yes Patient / [...] November 26, 2021 TIME: 12:27 PM CSN: [id number] Normal [facility] EGD DIAGNOSTICon 11-26-2021 [facility] Upper GI endoscopyon 022 Upper GI endoscopy [facility] Gastrointestinal Endoscopy Patient Name: Funmilayo Conway [...] by the physician, the nurse and the court usher in the pre-procedure area in the endoscopy [...] previously scheduled. Procedure Code(s): --- Professional --- 15414, Esophagogastroduoden oscopy, flexible, transoral; diagnostic, including collection of specimen(s) by brushing or washing, when performed (separate procedure) Diagnosis Code(s): --- Professional --- K21.0, Gastro-esophageal reflux disease with esophagitis R12, Heartburn CPT copyright 2019 [employer]. All rights reserved. The codes documented in this report are preliminary and upon client server programmer review may be revised to meet current compliance requirements. Attending Participation: I personally performed the entire procedure. Scope In: 1:21:30 PM Scope Out: 1:24:29 PM MD Mulugeta Tony MD 11/26/2021 1:27:19 PM This report has been signed electronically by Mulugeta Salmon MD Number of Addenda: 0 Note Initiated On: 11/26/2021 1:06 PM Estimated Blood Loss: Estimated blood loss: none. Normal [facility] HISTORY PHYSICALon HISTORY PHYSICAL HNO ID: [id number] Author: Maria T Lares APRN.RESEARCH WORKER [employer] Service: ? Author Type: Nurse Practitioner Type: HANDP Filed: 11/12/2021 3:58 PM Note Text: HISTORY AND PHYSICAL EXAMINATION SERVICE DATE: 11/12/2021 SERVICE TIME: 3:26 PM PRIMARY CARE PHYSICIAN: No Pcp This is a virtual visit using [employer] video visit. It required patient-provider interaction for [...] fevers. Neurological: No history of TIA's, stroke, DIRECTOR AUTO tumor, impaired sensorium, hemiplegia, paraplegia or quadraplegia. [...] > 1 time per night or hematuria. SENIOR SUSTAINABILITY ADVISOR: Negative for abnormal vaginal bleeding, abnormal vaginal [...] results with (more content not included)... Normal [facility] COVID Quick Testingon 2021 Result Negative [employer] Other Quick Strepon 10-27-2021 S. pyogenes Org specific cx Ql (Throat) Negative [employer] Other Quick Strep [employer] Other Consent for Procedure/Surger yon 08-05-2021 Consent for Procedure/Surgery [id number] #1.00CD:127 Normal [facility] Ambulatory Visit Summaryon 0 08-04-2021 Ambulatory [...] are no longer receiving treatment for. Normal [facility] Physician Referralon 022 Physician Referral [id number] #1.00CD:127 Normal [facility] Physician Referral [id number] #1.00CD:127 Normal [facility] Covid-19 PCR (CVDTB)on 06-08 SARS-CoV-2 (COVID-19) RNA JONH+probe Ql (Unsp spec) Not detected Normal NOT DETECTED [facility] Comment on above: Result Comment: This test is not yet approved or cleared by the [place] FDA. When there are no FDA-approved or cleared tests available, and other criteria are met, FDA can make tests available under an emergency access mechanism called an Emergency Use Authorization (EUA). The EUA for this test is supported by the [place] of Health and Human Service's (HHS's) declaration [...] SARS-CoV-2. Performed By: #### C VDTB #### [facility] [address] [place] [address] Dr. Kerri Roberto Covid-19 PCR ([facility])on SARS-CoV-2 (COVID-19) RNA JONH+probe Ql (Unsp spec) Not detected Normal NOT DETECTED [facility] Comment on above: Result Comment: This test is not yet approved or cleared by the [place] FDA. When there are no FDA-approved or cleared tests available, and other criteria are met, FDA can make tests available under an emergency access mechanism called an Emergency Use Authorization (EUA). The EUA for this test is supported by the [place] of Health and Human Service's (HHS's) declaration [...] SARS-CoV-2. Performed By: #### C VDTB #### [facility] [address] [place], [place] [id number] Dr. Kerri Roberto Coding Summary.on 12-26-2020 Coding Summary. CD:[id number] Gh0bWw+PGhlYWQ+PE1FV TMrU92ygJPiaB5AJ9nLZ E7PMFFTZPEGEG1ORP1mv FS1PDdiP3FewpNt GeafqHCpKM91HVn0QRE9 sThzYLmstW6seZOcF2p0 ElRoQD93qB11SYbqFLJt XqY4UcDyfvahhHBc P5qpByThmJEbIrx+PHRh YmxlIHdpZHRoPScxMDAl DoXpfBioHY2pGm2yQXMx LWNvbGxhcHNlOiBj y3dpPBHhSPmsUT1opVsz D3WahOO7TXTfa4n8Hl32 dHI+UIObLME0yTipUQnb s176WwRtn0aaDYF9 cFCjUEkyFSY6C11fv2K3 MIHoXOJcYAS4jSM4tM3l rCquyujuD0EqbVLmKlN0 OAT3uBVetD3mqGix rhwlyS3cUrt+Q49TYY7B CQFTQT9AVvh1M6WuRdps dHI+MQ07MZUjEG52gHIy zESmw6knkMd4RsZi GNEyCHJ9rJruMQhrl8Hq XFMyC94tnWCxa1R6ERVj vLbybUMzHxPhyLU2bA7k OBtslbvkl1vfbogj Htqht9juzb99bP32M89r MHqjWGIhCRS1SNNrQUHl aVekye9vwE1aYz5+IDxj p8pyp6mjwVs3MvUd FDOlqwVxlXipXLV1v6Hm Ee72G3PldUuiz9GhEzm4 ej00kZNof8M5rLU3DHst VOJiaE5qUObhGrP6 GOJiDwPrxU31mBHjMJwn Qb6tyHowwWgkKU5fZHOo qdnmXIWpvW2hFAAeoTEl cLclPT8kZOAqnbim d863YlXwRDZ0CBSusDWp Y9ZldY3fCiXaBDXdANOu B6AxvXFtOQziA173BEmk IsI4XGAtvsJhB7Ef BBDobCppHjF1c9H0Wh6E f7JbjkcfYOT4EAojSBO0 UzOgFzXfOcY8K5XnYny2 FQJraBmoIA9fS3Iy MEBpddzjlcxxcWB6JCYd JPKaqS19uDOmUQsrBz1f r0N6v568LYSvWENclE23 Fz9oyDeuJMCleVUP sP1ghooxm0ktpkcgNlTs GMAvBXa3MQp0CFWivBrk RiQtXQJ7YtB2WIZ6eWWy kC4olHpnokupxA5z Oyc+K02wiF0yPLV6OGZ4 mpbsZNOcxdLjUE37JP80 T5TkFroroVHrsQS+PGRp gtAwoLubXU7oZpZx l5wdp6GhJFvqB3CeJCFy AOrpHtp6PGBvBQB6vUO9 lV9mNDNePVnkh7W7pHG0 U8VgnhYewg2yg6zb CMLqMYguS61snILur4Z3 FJMdbNS9WVRulAxmYoWz yI50Rgk+DJZwbPerg0To Sucha8dnh4wgmFn2 IjMwJSIgdmFsaWduPSJ0 l3KxYi62O82uZHspLOFl NGOzKFBcAVSuoEjkjm3r pQ2qGb1+PGNvbCB3 dUW2yR4wJIYiQlO6KYqc R712SyMngTYnNtyza4ym m1sxjKf0AvLzAFGwpoLj aOcyPZZ7k8WvYk98 E54tMUwwCCIsSAZlLYNc RVJzmGxxqg9diR2aUr6+ PW9qq3fage21qJ53cIE+ MDIbFHG2qLcwFUxa TYXsxE8yBSmtCjX2TKJi CcAqcJ89jALrOCflYl7r qNiqbQczXH9bLQMhkbiz e103XlFvw0sgMGCy gLWqNYliTIS3Y31ht9I1 ZTIiQPHlDVS3wFI2jH8t bGlnbjogbGVmdDsgdmVy mUakOQkxYXfmJ430 IHRvcDsnPlBhdGllbnQg OgByLYw6P9GjMhi0TXQq eYoyNB1fwDNdBZfjJc8w wBsuyVywGR1dDGVe iixsb747OuEpz5drTAMk iMLsGYobMHX1E61pe6H6 NQOdXAFcTEY5vDN3nG9p bGlnbjogbGVmdDsg mfCibQnySXogRShvR747 IHRvcDsnPkJpcnRoIERh mAP3IK47JC21bJHvm6V9 rAO4C9PvNHTvccqv vleawNW5VYIgDRViqQ82 Gm6gbKrbDo0aSIDkQVE5 UUPccMGiN4CtkE9nJxSm QPLaTIUvO7HbaBGh XClqJ137ROdfKgK4EUHa gwLqR7QzHAZdfFspUtO8 r9Y0Ks1RA8O4RG31JH58 vHCic0X4dPE2A0Af TNAmzsjvvanqlLW6QYKn PXQltA38Uq6ziOfzOd8a VEWvYQW7RHOmsSJhG5Mz oR7gZqFqOZSlUYMt J2MiuDHgMBrhF183DLjp UxD8KYTjeeUjX3PcEOCa vZljAcW7t3T9At7JFIq4 JZ85NB49dLNvf8O5 wYS4F0EeVBUjxoptljhw iKR2AHBeICZisH50Ei6u dPjtIu0fEJCzZKU0KHBp xGZjJ4TgtU3gAxRa UPLsTVHpX3RydMWwNYtn K816CWxkPnT7PGKixhYj M1MyUKSuoBwuMyP6x6W5 Tc1SLOVzND14QUF1 oOW3SE94TU24N3ClZrbb dGFibGU+PHRhYmxlIHdp ZHRoPScxMDAlJyBzdHls JV6zQz7hSRHgXSRw aRmudLZqXyKzz2sxKAXe JRqjQK7udQsaY6VtuFC2 ULReh3f2Kz54A67cN2To dXA+AGGcvDF3cQF2 wC3oGxAgRoP5HWunI030 AfCooXKuKzueb2qnw4za oSh3WmK5ZSRafgHftOpp VOF6q4WnPf31L68z IHdpZHRoPSIxNSUiIHZh uOhpct1fjW2jEr4+PGNv hQZ6lLR2xP2rWhOlNrY4 ATgdM673HgLfvIWm Dvtuy1dmx7lurYm2CeDz YMUuspPppXkmNLB4s8Xr Au76B7OivBpeh7RzKyp4 kq99yMMkx5K5iSW5 Q3HkAFVqnfjthHFciRkt VX6dBITjnlgbYHYkoT3k WHIvZ0y3DqZtFmM5AGmx M7IkayL7FORnoZKx PBnbRGB1O81yw8G4JYAr MWErXWT6iSR6vT7mlSji bjogbGVmdDsgdmVydGlj QPwyFNskO162WZEq gScfWWNfpR0mCZHnxPZs hCmwRD6sCDWtrffnGmnT EjBPKgflMnDHYXPSIE83 UT81dGSja3Z6hCF4 I1RiSVBsnlbxplilkHM3 ZTYpJSNoiX85wXNnPCki Fr1ie6W7p451KSAfWDNa rZ94Qh3cqUvgVOSa yEQSxP6rvulfn4ebegfu XzZzLVYuSXw4KRo9UGQq zDzpMtKrKKD3JkZ4PBD7 mCCvnA6daSuygvbs zU3iEss+MTEvMTQvMTk4 OTwvdGQ+OTFvWBM8pCqu HRruQBDcsW5lMAHcE5s8 OfCvWtO2PRxiV3Ro OAZvcnauAj88mL8kErRv LqK6CJfnF1HhilZ1KDJd wWJfKTceMXJ4K64mc5V6 WLNuGEWwTMS3cTQ0 wN9nqEhexhjenSUcaHqw kbPklKmzMVpeDJntK239 IHRvcDsnPjMxIFllYXJz IQ82IX33zDRlu0I8 zCX0H3UzJYBzdlghjdhn yKI1CMYaZSTnfI48yAOl LTvhSt9ou9J6y017SFJo WWDoxO09Ta7vdEtq FDIlwIVZhL1mxurmg8ub knpuFtXaVBMkYUm5LRv6 VUXzjLufHdFsZKQ5NeU3 LWG2eFWahU5gbRgu vpyqzQ9fPwd+RmVtYWxl FQ20HF54jIZhp4Y5yAU6 S3TrKXZpviiyguxhoHR9 ZQMkWZEzgA92eTGt YNofUj2ol4R6v597GJIh PCHerW81Mc3ucNnfZGQy nORTnO6nzczfh0lmbcht GrNhNGNaBHk1YCv3 ZTIksZoxMuPxXFS4OvW5 DWT6gCKxeI7feXsgmppu lW1pLfc+D8DzKFQ4LRNv v475Y6AtWoyrsQS+ LS25XMCdWI58dMKxuDXm e4qdjVj7EvYnFFQrHBU7 vBbhOUwje3AxZLDhS20m rUDql4K7FXEfhIrh lSFpGkGbiES8wT0tTBtc pizgw2vbbltlVrppw1aa oq31uP59P64aCMbyLAEr PSIzMCUiIHZhbGln yq6fmY3pZw3+PGNvbCB3 dGA2sK4vRfZtHeV4NRfh R427PhKgkBDwJzwos4ht i3ztvKk5EzEhOPRz cxRlpThdDIA3w1MfPm47 O76sOGveYYZtPFVfJVJm TNQxkNuuku6phZ8dGs3+ VD4no3ycwr88yI88 dHI+CNTnTNJ4tNckNMkb BAWyoG1dNAzxPnQ2BSEz WjJqtQ90yGNsFMhgKe6s qIcriShyWZ4nKHZo yqofb627PvQmm7ewHTUx uQRkGImcABE3J35bl8N3 PBDuLRAjCDX2mYW6dI6k bGlnbjogbGVmdDsg zqIneDmjULxjFZziH343 KHZjkHzgAtYllIVbB6ei mpPCDE2mVsrfqOI+PHRk ULT6rTwhAHiwLGCz eM0bSQQmS1l9RsYcGjC9 QAqpC2YrpfU7TAFffWRg WNIsiPSCkC6btmbob5kg cjogIzAwMDAwMDt0 DGx6VLKpbBonCcKlIQN0 WaG8NLQ7tUVbrA0rwEfx bsowbA8eSnh+RklOOjwv dGQ+HKJwDTP7dWcz WLkeWQMxbL7qSBFwQ8i0 DqQqFoM0TGqxG1RbdaM9 BRUviYXxEQUbiPZTbT1g adyoy5fkoiqyKsPk AORkVLz9QZp0TDSyuTnq KrKsXJU9CmD3VLR4mDOv jX3zpFbjwsnnhU7cVnq+ TVJOOjwvdGQ+PHRk GSX1lWpjTHbqXPAcwY3t RSItA9l2VqDdQjL9ELlw G5JemnF7GAGfwOUwYJFs qJFJjW0phyqsm3mu cboxYgKmJJSkKSk7MAq9 ZRNyiRwwQnExVGK7JaV5 UHW0qZJozD7zvIvkxdox oV6pTew+LLV3HYJ9 YD05SY42L3LhYjligCJa bGU+PHRhYmxlIHdpZHRo ZCzrBAZoLrHfnBpxBM0l Fm6nAYToNXEdxPew cHNl (more content not included)... Normal [facility] Coding Summary.on 12-24-2020 Coding Summary. [id number] Gh0bWw+PGhlYWQ+PE1FV IWhG51riXOmhM9MF7dBN L3ZHFIDEOGJQF3HTT7kb CI6MAnjS8RyyaWg PekpiDAvZG90MZb0EXK9 hFfrNQdcvZ5odVSzO5o3 ObIfFC45gN79JLpgQDJs EjX8BtIpocsiwPGl S1vpHkKmyRCrEai+PHRh YmxlIHdpZHRoPScxMDAl NmQmoLceFV3eMf9dFJMi LWNvbGxhcHNlOiBj k3xnLMCvDFkfRS9pzUyo R0EgaRR3KLRbd6x1Jo50 dHI+LFCsTNW3wMhbGPco f329XtBxv3tdPHW7 qUUzLViyBWR5U90ir0U9 NKSgAOLcJZQ8yVP7vL9p dRxsxaorT3KyyUNpHoN2 KME6hCAdjI9yeFey umtnnU3xCje+X36TCR8W JMVZEX8LAcc3H0RqYdvr dHI+UJ63PLPdIW97vTGc fYYzr7jtfMt7XnJx VQXxXSV6wQnsFSgzm2Qk DPCuQ61qlTKkh4O5SFDt nVrkeDVuNoRrnTB6jC0z AFxeoqnwp5fmotxr Agcmz9pjso89xC94V70o ZQojFXBdXTN8LFFxKAKi qVrgua0zhI8hUq9+IDxj k1kdh6oufSr1VkRc BAMlwqJxgCwgLXF9s3Vq Xo26D5BqaFotj1MoXlq8 do59pBGer8P1kUU2XQam CEZxvE2tDXirJoQ7 ISVoTuAauA41aLMqYBqn Vd0mrEmihOhbKL0aAJUh jpxhJBJvoZ4pGGEhjDPt jYhtYM7aNTTufxrh m858KjRzTBN7MMHoeVIh J7FnlY8jUxHgYHZiGLFb X2QopMXpSBljR695VNrp XbM8XYPktfMgT0Yv OQPefWowIcW9k0M3Sv7Z j1PhmoybSMS1NJhnGUF9 PxGyAcVyVaH0O3ObMpz9 SZHxgUglEP5nT4Sb ULBqlxblitymlVH7ULEn CUEhpG66qEWyEJnbVm7p d4S4l769YKBgGNRtiN08 Jy7ejKqkBDPboNVK jK7djymer3owseyaGgXx ZLVmGGz7SNx8ZFMhbJnf CwJcFKX6JpX8VNP1rRNy nA0bmDntaetxoP8f Oyc+J55luJ5qNBD8NSJ5 lmquRQFcsaQlJZ92CK31 X2BjHwljwHJeaNW+PGRp lqFqfQybCL8jVmAv v7fhq2XpMNiqK4RtRKQy DWflIzs5RNYjPLP2vMY4 jV1iIMIdJKjxm8Q4sTR5 K1GobwBjzv2us9ee GFFeFWyrG35rwRIst6F2 CYSsdRJ9ZVAjfDcpLuFq yN91Xbt+SYNwlJnnl2Az Sxvna4bks5xihEw2 IjMwJSIgdmFsaWduPSJ0 q9QsKk01J18aVEogCPEw ENThCXNcSHAyxGtyii6j nO0iYd6+PGNvbCB3 nRJ7eM5dAGBmUtU9SJcc P680DvNyjVEtUyogv4bf r5nvpCz5YwOpUJBffyPj vPlyFDV5f1MqHe62 O87aGZgkZVOyGTZeYFKh NMLujZqpxf8vyE9vVf2+ ZH2ro9nexs73oS61xPQ+ TLLyIKI8wLcrHTqk XMSgvZ4zMKeqEnG0VMRc ZuRmeN39sUMhFUrdKx4d lBvurBaiQT1fRASahxcx z542NyUqm9zoIBMo sSNaRPeoTMT6H86gn3W1 ZHTxTLEjFAT6xBO3oR3x bGlnbjogbGVmdDsgdmVy aFgtTYkxKVixI536 IHRvcDsnPlBhdGllbnQg ImCmPRr5L7QnYnq6GXSo aBwgHY3esXLqNJnpIx7v qHjpcXqjXM4dFSBk kpdvi936QjPln3eqEMTw bDViHTowQUF1Y22cl7D7 YSIhIYDwUKI4lDS9yZ2v bGlnbjogbGVmdDsg jeMhcFthURqzNPutV279 IHRvcDsnPkJpcnRoIERh qKN4KW11AX11lQSeh6Q1 nIF5V5IqLYXynrrd aijpxLC4NNFsDTSmgU84 Il6alWhbXc8rQCKpVGE3 DQNxmASpA8KvqU4eHcCv LJSoQPVvR1UunDNx KLtpW867AYijZfY2BDOq mwZgU8UcXSElrQaqIgY6 w3R7No2BV0I0TF27QN55 fEEms2M2vZX9V0Hc PVHtyupihqhluJK4JUOf CGWyuZ30Mx8uuPzpHx4s ZTOcHIR7HJHrwEPnA0Kf vF2xDdVgBKSvZSJh L3VayEQkYYqwJ366QNhd NaY7CFAwzgMiV3LgAGKv uEjuMpO4h5O6Qz5EEXv9 EW44ZY56eEKgo9V0 tIC8H4CfNLIhcrycahzz cST9IUFvXXSkiN36Zc6k sHiaYr7bVHYhRTX0UJIy lJHaG3LizU7oJbHn GLLzOVErW7NwuVWhPNoh P823QTicKiT6KQHfyqVf J0WjLPBadKteCrL1l3C9 Yi6ACOTwPC99YMQ8 aQY2NI05SB95P3GxFhxf dGFibGU+PHRhYmxlIHdp ZHRoPScxMDAlJyBzdHls LP5nMi1pTWJiVSIr fHsqePWpIeZra9auHDEl PEeoVG3klRqkZ8CcpVU0 YYNgp2v2Dp61L67bZ6My dXA+AOFdmJO2mIV4 eT0bUsQbVxJ1ZNwzJ219 VcFsdKLfPjtgh7nwo3pb hAf7FfT4BLLkboXjzAnf EZW5h3VqUd67A42h IHdpZHRoPSIxNSUiIHZh kDtwih7sxR7tVe4+PGNv eNN3xAO8dX5xWkHeMnA3 EBffP688GiDnrAZv Mnhkd0dcv9cswNf9XgDg TAPvhmSkvYlyDIV6w0Xs De45O3ZsxKtir0RfYxv9 ss71jFPky0M5vGA4 K1FhDLSkbqcbeJSseDek UW4vLOAfukuaUDDdxD6z UZUyU5z8UrCwQlG5WRrh X5UrmmB7BDVwaLMi JDkiYOZ6W20aa9H9PUYr XLLfTWM5fPB0bI5kxGdg bjogbGVmdDsgdmVydGlj AKnaEOlqH492DJUi jXzfLYLhlP0fXTCfjFFh aOdaSD0wFKDvtogdCthC FrOEKgrtVvJHZCWOWR17 KO50xXQyy9U5tIB7 X2IwVOXaplyokaqqyHN3 PGLkHPXbmG33fLBzYOtk Kk5zk9S5i757RJXwUSBo wX56Ki6fjWqnNMBu cKMJmS3yveowk3mlgdhf FdSyFUDmCJg3BRv4JQEt fTvzEqLeWGA9GaT8FQL5 rUKrvF5dxCqqgutd fN7rTqh+MTEvMTQvMTk4 OTwvdGQ+JOKqSZB7mVtw NZoeBMWpjI9eBFNdI3f9 BmVpGaF9APtdM2Ge LQNnmtztYi94iD1kYbXr CnG2GNcwI6PgldX6MXMb sZDbTUscJDI4P23qz1M7 FSVaNTMbCMM5fHA4 kI9trFjetypboGVpgCoh wlHzrDijNOcgCUsnW688 IHRvcDsnPjMxIFllYXJz RP52PA00kQWnw8A8 cAD4X1SmJDNfhcsuhnut mZV1ANFxVCYmoO21sZLh APkoHh5nf1O0f383QVWm DPZzjI24Lh4wvPjl IMHrbBDQeE9nggcbl9bu zopnYqHaFPGrUFk8CHc9 IPGmuYmeZsMuOXU7EeY8 PPA6iXMlaF2xuBcr fxxrhB3vPrc+RmVtYWxl AS17KG39uSLbe8V9sWM4 N6UaOBAfeqzfigqslDB3 ELHkSYZafG73nXWd MMlgYv6ng5R8n714OBAr ZIMcnQ50Ag8ejKxaHXKp qHQJgQ2anlfmi4omopef WmGcGQAgDCe5JVw6 DDUroZwbRfUtEKZ6XdQ6 FQX3mDSzpC1ykQguteup bQ2lJkr+SP4bpkgkpoG4 YS96JF51Q7ReYlba dGFibGU+PHRhYmxlIHdp ZHRoPScxMDAlJyBzdHls KK8qEo0hHOJxICMiqPgr nUYiCqDcg6bvVEMb YKbgAM5ylTadW7FkzOY2 UTTwa9o2Ng35S71mD2Xm dXA+ZMYokWP8pLH8kZ2m NwRtHkV4LHzaN913 HpQqaPIzUbhcp6unz2aj gYp1FmRgXQNdftAnwMya DYG9z4BaHc51U44cZIoa ZHRoPSIyMCUiIHZh dKfsgt5nnA9uIf5+PGNv sBL8xGJ9dQ9gQlHvAiS4 GNgqK739AuOqfYQkYvig A58tS5WzsOD+PHRy Mru6XTGlzZqaAS3fkXAg THykJe9pVGC8PoScWhBw WBnbS3RfCEWrxfahihil oNX6MNHgGIJgnD79 Jj8arMfrKf0jZDDwOXH5 UDKbhFGzH5XqyJ8iIuFl CBIwPDSuZ8YfjQXzBByg I451RBadNkT8BWUw cbYhK2IiCGDqcVfrFuM4 b5Y2Np2LwRbrePJvIC4x KgDgAFx3V0YgXrc6PCMq fLhdWE1zgAGwVNxk Mx2cuVeiyPsmFK0fHPHg lijtz624PvDmu9fhLQEw aWWrFIxdKXI9E89xj0J7 RMFeTDRhZES3dWA0 aB0rsRavvokbqUWksYcy hgWqmNbuCEjgBUciT570 SJRyuImePvYCUmq3I3Ec Fwp7CQAyfFvjDG9v aFCiNUwdZf7hwCjxlAiy OX8mJGDjeorso917NjYc w1whAHRanIZlRYmySTA7 T56oj9O0YZRpEWVt TZQ6qXE9pU8jnKfvcmdc bGVmdDsgdmVydGljYWwt TZpiD508KQYasDvyNk1E Qhs2W4WzEny0NHEi oJhgDO5dsYZpNYhjQn1u oGntwGzvEK6yGKYtxrif a263DpIzy5lcNOYipEAg XCgpHQZ6S28td3N9 HOCjUOUaPHN8mQQ6fJ2j bGlnbjogbGVmdDsgdmVy dLdyOUupTGdtZ868VFGw cDsnPlBheWVyOjwv dGQ+AR30ht59S8MaIprh Ify1UQUxQHM6uHL4zK0j XIWrVAhxn6B4mSW7J0Xz rkFbqq4jv4hoAJQy ZTog (more content not included)... Normal [facility] C Urineon 12-20-2020 Bacteria identified Cx [...] Locations R1: [facility] [address] [place] [address], [facility] , , [facility] Comment on above: Performed By: #### 1 [id number] ####[facility] [address] [place] [address] Discharge Instructionson Discharge Instructions [id number] 1#1.00CD:127 Normal [facility] ED Note-Physicianon 12-21-19 ED Note-Physician care transferred at change of shift. CT pending. CT returned without acute findings. Patient accepted for admission for pain control Impression: flank pain Normal [facility] Comment on above: Result Comment: Elec tronically Signed By: Yevgeniy JOYCE, Salvador\.br\Date and Time Signed: 12/19/20 23:07 EDT Inpatient Clinical Summaryon 12-20-2020 Inpatient Clinical Summary [place] [id number] Clinical Summary Person Information: Name: FUNMILAYO CONWAY Age: 30 Years : 1990 Sex: Female PCP: Maki VELA PA-C Marital Status: Phone: [phone] Race: White Ethnicity: Non- or Language: Turkmen Visit Id: Visit Reason: Vomiting; Back pain; Headache; VOMITTING; HEADACHE Speciality: Acuity: Enc Type: Observation Med Service: Medical Arrival: 12/19/2020 16:38:33 Discharge: Dispo Type: Admitted as IP to this Hosp Address: [address] [place] [address] [phone] Provider Notes: Diagnosis: 1:Myalgia; 2:Headache; 3:Left flank [...] Follow up: With: Address: When: [place] [address] Business (1) 12/26/2020 8:30 AM Patient Education Information: Viral Illness, Adult Normal [facility] Inpatient Patient Summaryon 12-20-2020 Inpatient Patient Summary [address] [address] Patient Discharge Instructions PERSON INFORMATION [...] hydrated with water Take tylenol prn for [facility] Primary Care Physician to provide the following pending test results: Follow up: With: Address: When: Maki VELA [address] [place] [address] Business (1) 12/26/2020 8:30 AM In the event that this physician does not participate in your insurance network, please consult with your insurance company to find a nearby participating provider. Comment: ITOM FUNMILAYO A, have received the attached patient education [...] infected with (more content not included)... Normal [facility] Procalcitoninon 12-20-2020 Procalcitonin .05 ng/mL Normal .00-.50 [facility] Comment on above: Result Comment: <0.5 [...] to 24 hours. Performed By: #### 2 [id number] #### [facility] [address] [place] [address] XR Chest Single Viewon 12-20 XR Chest [...] M.D. Transcribed by: LILY Technologist: GLEN Bates [facility] Auto Diffon 12-19-2020 Basophils/100 WBC (Bld) 0.7 % Normal 0.0-2.0 [facility] Comment on above: Order Comment: Order Added by Discern Expert. Performed By: #### 2 545605, 2467548, 4585633, 94823127, 9597263, 3492159 #### [facility] [address] [place] [address] Basophils/Leukocytes Auto (Bld) [Pure # fraction] 0.1 E9/L Normal 0.0-0.2 [facility] Comment on above: Order Comment: Order Added by Discern Expert. Performed By: #### 2 113128, 5865885, 5772785, 03897708, 9231378, 0869636 #### [facility] [address] [place] [address] Eosinophils/100 WBC (Bld) 0.6 % Normal 0.0-8.0 [facility] Comment on above: Order Comment: Order Added by Discern Expert. Performed By: #### 2 839077, 3473277, 8024583, 47672157, 7460880, 3875490 #### [facility] [address] [place] [address] Eosinophils/Leukocytes Auto (Bld) [Pure # fraction] 0.1 E9/L Normal 0.0-0.5 [facility] Comment on above: Order Comment: Order Added by Discern Expert. Performed By: #### 2 824291, 5361451, 2105599, 28528116, 3206193, 3491732 #### [facility] [address] [place] [address] Lymphocytes/100 WBC (Bld) 29.4 % Normal 14.0-50.0 [facility] Comment on above: Order Comment: Order Added by Discern Expert. Performed By: #### 2 416593, 8213592, 2308144, 59430798, 2469914, 9159664 #### [facility] [address] [place] [address] Lymphocytes/Leukocytes Auto (Bld) [Pure # fraction] 2.5 E9/L Normal 1.0-4.0 [facility] Comment on above: Order Comment: Order Added by Discern Expert. Performed By: #### 2 935818, 3334741, 5942370, 73446364, 5901668, 3632008 #### [facility] [address] [place] [address] Monocytes/100 WBC (Bld) 7.8 % Normal 4.0-14.0 [facility] Comment on above: Order Comment: Order Added by Discern Expert. Performed By: #### 2 579579, 7656757, 7894760, 18389643, 3876974, 7337315 #### [facility] [address] [place] [address] Monocytes/Leukocytes Auto (Bld) [Pure # fraction] 0.7 E9/L Normal 0.2-1.0 [facility] Comment on above: Order Comment: Order Added by Discern Expert. Performed By: #### 2 090084, 9567082, 7277571, 07628307, 2822300, 2053972 #### [facility] [address] [place] [address] Neutrophils/100 WBC (Bld) 61.5 % Normal 36.0-75.0 [facility] Comment on above: Order Comment: Order Added by Discern Expert. Performed By: #### 2 075731, 1665559, 4571151, 52982232, 8582615, 5657493 #### [facility] [address] [place] [address] Neutrophils/Leukocytes Auto (Bld) [Pure # fraction] 5.1 E9/L Normal 2.0-7.5 [facility] Comment on above: Order Comment: Order Added by Discern Expert. Performed By: #### 2 167588, 8167827, 9299407, 15720643, 8518303, 7947996 #### [facility] [address] [place] [address] CBC w/ Auto Diffon Erythrocyte distribution width (RBC) [Ratio] 12.7 % Normal 10.9-14.2 [facility] Comment on above: Performed By: #### 2 719875, 2202014, 4646888, 17252363, 1604483, 2791472 #### [facility] [address] [place] [address] Hematocrit (Bld) [Volume fraction] 41.2 % Normal 34.0-46.0 [facility] Comment on above: Performed By: #### 2 430647, 7560167, 2400711, 85337327, 2146715, 3993768 #### [facility] [address] [place] [address] Hemoglobin (Bld) [Mass/Vol] 13.8 g/dL Normal 12.0-16.0 [facility] Comment on above: Performed By: #### 2 222339, 5668696, 8117096, 50157985, 2992411, 5323870 #### [facility] [address] [place] [address] MCH (RBC) [Entitic mass] 29.6 pg Normal 27.0-34.0 [facility] Comment on above: Performed By: #### 2 712006, 7307558, 0448147, 64399196, 9318040, 3830078 #### [facility] [address] [place] [address] MCHC (RBC) [Mass/Vol] 33.5 g/dL Normal 31.4-36.0 [facility] Comment on above: Performed By: #### 2 852409, 2858214, 2243998, 11998212, 1554457, 6400386 #### [facility] [address] [place] [address] MCV (RBC) [Entitic vol] 88.3 fL Normal 80.0-100.0 [facility] Comment on above: Performed By: #### 2 678524, 1198268, 5636447, 02030273, 5647447, 8039166 #### [facility] [address] [place] [address] Platelet mean volume (Bld) [Entitic vol] 8.3 fL Normal 6.4-10.8 [facility] Comment on above: Performed By: #### 2 488947, 3556661, 2044411, 63432954, 3230546, 5935971 #### [facility] [address] [place] [address] Platelets (Bld) [#/Vol] 188.0 E9/L Normal 150.0-500.0 [facility] Comment on above: Performed By: #### 2 824765, 1924861, 5549314, 98736507, 9494326, 9281602 #### [facility] [address] [place] [address] RBC (Bld) [#/Vol] 4.7 E12/L Normal 4.3-5.9 [facility] Comment on above: Performed By: #### 2 081484, 9050295, 6300103, 15644441, 4026753, 8332533 #### [facility] [address] [place] [address] WBC corrected for nucl RBC Auto (Bld) [#/Vol] 8.4 E9/L Normal 4.0-11.0 [facility] Comment on above: Performed By: #### 2 910214, 0869694, 4701893, 66197291, 8134220, 2397843 #### [facility] [address] [place] [address] CMPon 12-19-2020 Albumin [Mass/Vol] 4.2 g/dL Normal 3.3-5.0 [facility] Comment on above: Performed By: #### 2 233395, 6374271, 3218786, 20637522, 1159594, 0956472 ####[facility] [address] [place] [address] Albumin/Globulin (S) [Mass conc ratio] 1.0 Low 1.1-2.2 [facility] Comment on above: Performed By: #### 2 948130, 5015252, 5493255, 03297873, 1710830, 1977500 ####[facility] [address] [place] [address] ALP [Catalytic activity/Vol] 44 Int._Unit/L Normal 21-98 [facility] Comment on above: Performed By: #### 2 274069, 2214228, 1355168, 12147530, 3280252, 8171781 ####[facility] [address] [place] [address] ALT No additional P-5'-P [Catalytic activity/Vol] 22 Int._Unit/L Normal 6-46 [facility] Comment on above: Performed By: #### 2 856387, 7526434, 5137514, 43917247, 2876414, 5413937 ####[facility] [address] [place] [address] AST [Catalytic activity/Vol] 18 Int._Unit/L Normal 5-43 [facility] Comment on above: Performed By: #### 2 896381, 0916051, 6032947, 44599490, 0208451, 9808002 ####[facility] [address] [place] [address] Bilirubin [Mass/Vol] 0.8 mg/dL Normal 0.0-1.[address] [facility] Comment on above: Performed By: #### 2 743565, 3251796, 9668759, 87534801, 6002020, 6805567 ####[facility] [address] [place] [address] Creatinine [Mass/Vol] 0.5 mg/dL Normal 0.5-1.3 [facility] Comment on above: Performed By: #### 2 726839, 8323865, 6107464, 52432917, 3246099, 4591598 ####[facility] [address] [place] [address] Globulin (S) [Mass/Vol] 4.0 g/dL Normal 1.4-4.0 [facility] Comment on above: Performed By: #### 2 393922, 0948484, 9462276, 98459976, 8539183, 6557823 ####[facility] [address] [place] [address] Protein [Mass/Vol] 8.2 g/dL High 6.0-7.8 [facility] Comment on above: Performed By: #### 2 674859, 8156137, 8773750, 40115243, 2100052, 7754483 ####[facility] [address] [place] [address] Urea nitrogen [Mass/Vol] 6 mg/dL Normal 5-21 [facility] Comment on above: Performed By: #### 2 305532, 7110906, 4068954, 88052789, 6358635, 2668612 ####[facility] [address] [place] [address] Urea nitrogen/Creatinine [Mass ratio] 12 No Units Normal 10-20 [facility] Comment on above: Performed By: #### 2 868960, 9632348, 1920496, 60456308, 5460073, 4056370 ####[facility] [address] [place] [address] Anion gap [Moles/Vol] 14 mmol/L Normal 6-16 [facility] Comment on above: Performed By: #### 2 029398, 2044231, 3564517, 43498972, 0955537, 0434863 ####[facility] [address] [place] [address] Calcium [Mass/Vol] 8.9 mg/dL Normal 8.9-11.1 [facility] Comment on above: Performed By: #### 2 270507, 4214277, 1132832, 03992957, 3119584, 4037083 ####[facility] [address] [place] [address] Chloride [Moles/Vol] 103 mmol/L Normal 101-[address] [facility] Comment on above: Performed By: #### 2 093790, 9493373, 8030793, 70334911, 1558644, 4086280 ####[facility] [address] [place] [address] CO2 [Moles/Vol] 25 mmol/L Normal 21-31 [facility] Comment on above: Performed By: #### 2 850879, 7798001, 3706198, 27640579, 0066162, 2308313 ####[facility] [address] [place] [address] Glucose [Mass/Vol] 90 mg/dL Normal 55-199 [facility] Comment on above: Result Comment: If t his glucose result represents a fasting glucose, interpretation should refer to the following reference range: 55-99 mg/dL Performed By: #### 2 243162, 9507970, 3425668, 70921272, 9081984, 6528913 ####[facility] [address] [address] Potassium [Moles/Vol] 3.8 mmol/L Normal 3.5-5.3 [facility] Comment on above: Performed By: #### 2 808956, 7968939, 0387602, 15916418, 0481799, 0305490 ####[facility] [address] [place] [address] Sodium [Moles/Vol] 138 mmol/L Normal 135-145 [facility] Comment on above: Performed By: #### 2 601331, 2155701, 2307629, 81026095, 3953532, 2509148 ####[facility] [address] [place] [address] CT Abdomen/Pelvis w/o Tutu prescott 12-19-2020 CT [...] and spleen are not included within the npffo-dj-dkgl of this renal stone protocol study. The [...] Oral contrast amount in ml's: 0 Normal [facility] Consent for Treatmenton 12-05 Consent for Treatment [id number] #1.00CD:127 Normal [facility] ED Clinical Summaryon 2020 ED Clinical Summary [place] [address] ED Clinical Summary Person Information Name: FUNMILAYO CONWAY Mariah/[facility] Age: 30 Years : 1990 Sex: Female Language: Turkmen PCP: Maki VELA PA-C Marital Status: Phone: [phone] Visit Id: Visit Reason: Vomiting; Back pain; Headache; NAUSEA AND VOMITTING SENT BY PCP Speciality: Acuity: 3 Enc Type: Emergency Med Service: Emergency Arrival: 12/19/2020 16:38:33 Discharge: LOS: 000 03:58 Checkin: 12/19/2020 16:38:33 Checkout: 12/19/2020 20:36:01 Dispo Type: Admitted as IP to this [facility] EVENTS: Event Name Event Status Request Date/Time [...] 12/19/2020 20:36:01 12/19/2020 20:36:01 12/19/2020 20:36:01 ADDRESS: [address] [place] [address] [address] [id number] PHYS DOC NOTES: MEDICAL INFORMATION: Prescriptions Given: Medications to Continue with No Changes Other Medications cephalexin (Keflex 500 mg Cap) 1 Capsules By Mouth every 6 hours for 7 Days. Refills: 0. ondansetron (ondansetron 4 mg Dis Tab) 1 Tablets By Mouth every 6 hours as needed Nausea/Vomiting. Refills: 0. PATIENT EDUCATION INFORMATION: Instructions: Follow up: DIAGNOSIS: Normal [facility] ED Note-Physicianon 12-20-19 ED Note-Physician Basic [...] (12/19/20 17:3 (more content not included)... Normal [facility] Comment on above: Result Comment: Elec tronically Signed By: Shiva Ferreira DO\.br\Date and Time Signed: 12/19/20 19:19 EDT ED Patient Education Noteon 12-19-2020 ED Patient Education Note Normal [facility] ED Patient Summaryon 021 ED Patient Summary [address] [address] Patient Discharge Instructions Person Information Name: FUNMILAYO CONWAY Age: 30 Years Arrival Date: 12/19/2020 16:38:33 Discharge Diagnosis: Primary Care Physician: Maki VELA PA-C Provider Information Primary Provider: Shiva Ferreira DO Advanced Guardian Ad Litem:None The exam and treatment you received in the Emergency Department were for an urgent problem and are not intended as complete care. It is important that you follow up with a doctor, nurse practitioner, or physician?s lead recreation assistant for ongoing care. If your symptoms [...] opioids can be used to help relieve yrfeepqo-nb-xtrtnb pain and are often prescribed following a [...] be struggling with addiction, tell your health patient care specialist and ask for guidance or call [employer]?S National Helpline at 9-022-807-HELP. v Source: US Department of Health and Human Services/Center for Disease Control & Prevention [facility] Medications Given: Medication Dose Route Sodium Chloride 0.9% 1000.00 m (more content not included)... Normal [facility] Lactic Acidon 12-19-2020 Lactate [Mass/Vol] 0.8 mmol/L Normal 0.5-2.2 [facility] Comment on above: Performed By: #### 2 819273 #### [facility] [address] [place] [address] Lactate [Mass/Vol] 0.9 mmol/L Normal 0.5-2.2 [facility] Comment on above: Performed By: #### 2 524604, 4955496, 7407219, 43699583, 3939019, 8214424 #### [facility] [address] [place] [address] Physician Orderon 12-19-2020 Physician Order [id number]#1.00CD:127 Normal [facility] Troponinon 12-19-2020 Troponin I.cardiac [Mass/Vol] 2.30 pg/mL Low 10.10-27.10 [facility] Comment on above: Result Comment: The 95% CI (Confidence Interval) PPV (Positive Predictive Value) for myocardial infarction in females is 38 pg/mL, in males 51 pg/mL. The results should be used in conjunction with clinical conditions of myocardial infarction. (Access High Sensitivity Troponin I Instructions For Use, Darling Kandace, January 2018) Performed By: #### 2 301426, 4989035, 1395188, 68368275, 4351148, 7416793 ####[facility] [address] [place] [address] UA With Cult Reflexon 2020 Bacteria LM Ql (Urine sed) TRACE Normal Trace [facility] Comment on above: Performed By: #### 1 6395999 ####[facility] [address] [place] [address] Bilirubin Ql (U) Negative Normal Negative [facility] Comment on above: Performed By: #### 1 5333838 ####[facility] [address] [place] [address] Clarity (U) CLEAR Normal Clear [facility] Comment on above: Performed By: #### 1 4183207 ####[address] [address] Color (U) YELLOW Normal Yellow [facility] Comment on above: Performed By: #### 1 6265435 ####[address] [address] Epithelial cells.squamous LM.HPF (Urine sed) [#/Area] 3-4 Normal 0-2 [facility] Comment on above: Performed By: #### 1 2250270 ####[address] [address] Glucose Test strip (U) [Mass/Vol] Negative Normal Negative [facility] Comment on above: Performed By: #### 1 3855493 ####[address] [address] Hemoglobin Ql (U) Negative Normal Negative [facility] Comment on above: Performed By: #### 1 9091576 ####[address] [address] Ketones (U) [Mass/Vol] 1+ Abnormal Negative [facility] Comment on above: Performed By: #### 1 9820744 ####[address] [address] Arthur.plasma/Arthur. RBC (Bld) [Mass ratio] 0-3 Normal 0-3 [facility] Comment on above: Performed By: #### 1 1055996 ####[facility] [address] [place] [address] Mucus Ql (Urine sed) 1+ Normal [facility] Comment on above: Performed By: #### 1 0750143 ####[place] [address] [place] [address] Nitrite Ql (U) Negative Normal Negative [facility] Comment on above: Performed By: #### 1 2905728 ####[address] [address] pH (U) 6.0 [pH] Invalid Interpretation Code 5.0-9.0 [facility] Comment on above: Performed By: #### 1 1388106 ####[address] [address] Protein (U) [Mass/Vol] TRACE Abnormal Negative [facility] Comment on above: Performed By: #### 1 3978333 ####[address] [address] Specific gravity (U) [Rel density] 1.025 Invalid Interpretation Code 1.005-1.030 [facility] Comment on above: Performed By: #### 1 0642195 ####[address] [address] Type of Urine collection method Clean Catch Normal [facility] Comment on above: Performed By: #### 1 0169634 ####[address] [address] Urobilinogen Qn (U) 0.2 {Tg'U}/dL Normal 0.0-1.0 [facility] Comment on above: Performed By: #### 1 9976202 ####[address] [address] WBC Auto Ql (U) Negative Normal Negative [facility] Comment on above: Performed By: #### 1 1354184 ####[address] [address] WBC LM.HPF (Urine sed) [#/Area] 0-5 Normal 0-5 [facility] Comment on above: Performed By: #### 1 1618121 ####[address] [address] eGFRon 12-19-2020 GFR/1.73 sq M.predicted among blacks MDRD (S/P/Bld) [Vol rate/Area] mL/min/{1.73_m2} Normal >=59 [facility] Comment on above: Order Comment: Order added by Discern Expert. Result Comment: eGFR is race adjusted. AA=. Performed By: #### 2 821259, 8390279, 9482189, 99611102, 2331759, 3643426 ####[facility] [address] [place] [address] GFR/1.73 sq M.predicted among non-blacks MDRD (S/P/Bld) [Vol rate/Area] mL/min/{1.73_m2} Normal >=59 [facility] Comment on above: Order Comment: Order added by Discern Expert. Result Comment: Manager Practice roshan kidney disease could be indicated at eGFR's of less than 60 mL/min/1.73m2. Kidney failure is indicated at less than 15 mL/min/1.73m2. Performed By: #### 2 848815, 8954486, 5621904, 91125856, 3338575, 3182735 ####[facility] [address] [place] [address] Consent for Treatmenton 12-05 Consent for Treatment [id number] #1.00CD:127 Normal [facility] Discharge Instructionson Discharge Instructions [id number]#1.00CD:127 Normal [facility] ED Clinical Summaryon 2020 ED Clinical Summary [address] [address] ED Clinical Summary Person Information Name: FNUMILAYO CONWAY [place] Age: 30 Years : 1990 Sex: Female Language: Turkmen PCP: Maki VELA PA-C Marital Status: Phone: [phone] Visit Id: Visit Reason: Back pain; Headache; [...] 12/18/2020 03:52:27 12/18/2020 03:52:27 12/18/2020 03:52:27 ADDRESS: [address] [place] [address] [address] [id number] PHYS DOC NOTES: MEDICAL INFORMATION: Prescriptions Given: New Medications [id number], [address] [place], [place] [id number], [phone] cephalexin (Keflex 500 mg Cap) 1 Capsules By Mouth every 6 hours for 7 Days. Refills: 0. Medications to Continue with No Changes Other Medications ondansetron (ondansetron 4 mg Dis Tab) 1 Tablets By Mouth every 6 hours as needed Nausea/Vomiting. Refills: 0. PATIENT EDUCATION INFORMATION: Instructions: Pyelonephritis, Adult Follow up: With: Address: When: [place] [address] Business (1) In 3 days DIAGNOSIS: Acute pyelonephritis Normal [facility] ED Note-Nursingon 12-18-2020 ED Note-Nursing pt ambulatory to with steady gait w/o assistance. urine sample obtained. at bedside for eval; awaiting further orders Normal [facility] ED Note-Physicianon 12-19-19 ED Note-Physician Basic [...] day(s), # 28 cap(s), Refills(s) 0, Pharmacy: [id number], 165, cm, 12/18/20 1:04:00 EDT, [...] VELA In [address] [place] [address]- Business (1) Additional Instructions: Patient Education Pyelonephritis, [...] Family History (more content not included)... Normal [facility] Comment on above: Result Comment: Elec [...] you start to feel better. ? Take ejqw-kkj-rurvlve and prescription medicines only as told by [...] 05/24/2006 Document Revised: 03/28/2019 Document Reviewed: 03/28/2019 [employer] Patient Education ? 2019 Dinos Rule. Normal [facility] ED Patient Summaryon 021 ED Patient Summary [address] [address] Patient Discharge Instructions Person Information Name: FUNMILAYO CONWAY Age: 30 Years Arrival Date: 12/18/2020 00:55:40 Discharge Diagnosis: Acute pyelonephritis Primary Care Physician: Maki VELA PA-C Provider Information Primary Provider: Darien Fischer DO Advanced Guardian Ad Litem:None The exam and treatment you received in the Emergency Department were for an urgent problem and are not intended as complete care. It is important that you follow up with a doctor, nurse practitioner, or physician?s lead recreation assistant for ongoing care. If your symptoms [...] Follow-up Instructions: With: Address: When: [place] [address] Business (1) In 3 days In the event that this physician does not participate in your insurance network, please consult with your insurance company to find a nearby participating provider. Patient Education Materials: Pyelonephritis, Adult A MESSAGE TO ALL PATIENTS REGARDING OPIOIDS PRESCRIPTION OPIOIDS: WHAT YOU NEED TO KNOW Prescription opioids can be used to help relieve xhkemqhn-kg-cyubqf pain and are often prescribed following a [...] be struggling with addiction, tell your health patient care specialist and ask for guidance or call [facility]?S National Helpline at 5-656-580-[facility]. n Source: [facility] (more content not included)... Normal [facility] U BetaHcg Qualon 12-18-2020 HCG.beta subunit (U) [Moles/Vol] Negative Normal [facility] Comment on above: Performed By: #### 2 2297970 ####[facility] [address] [place] [address] UA With Cult Reflexon 2020 Bacteria LM Ql (Urine sed) 3+ /HPF Abnormal Trace [facility] Comment on above: Performed By: #### 1 0042129, 8729607 ####[facility] [address] [place] [address] Bilirubin Ql (U) Negative Normal Negative [facility] Comment on above: Performed By: #### 1 1693876, 5193414 ####[facility] [address] [place] [address] Clarity (U) SL CLOUDY Abnormal Clear [facility] Comment on above: Performed By: #### 1 [id number], [id number] ####[facility] [address] [place] [address] Color (U) YELLOW Normal Yellow [facility] Comment on above: Performed By: #### 1 [id number], [id number] ####[facility] [address] [place] [address] Crystals LM Ql (Urine sed) Present Normal [facility] Comment on above: Performed By: #### 1 [id number], [id number] ####[facility] [address] [place] [address] Epithelial cells.squamous LM.HPF (Urine sed) [#/Area] 0-2 Normal 0-2 [facility] Comment on above: Performed By: #### 1 [id number], [id number] ####[facility] [address] [place] [address] Glucose Test strip (U) [Mass/Vol] Negative Normal Negative [facility] Comment on above: Performed By: #### 1 [id number], [id number] ####[address] [address] Hemoglobin Ql (U) Negative Normal Negative [facility] Comment on above: Performed By: #### 1 [id number], [id number] ####[address] [address] Ketones (U) [Mass/Vol] Negative Normal Negative [facility] Comment on above: Performed By: #### 1 [id number], [id number] ####[facility] [address] [place] [address] Arthur.plasma/Arthur. RBC (Bld) [Mass ratio] 0-3 Normal 0-3 [facility] Comment on above: Performed By: #### 1 [id number], [id number] ####[facility] [address] [place] [address] Mucus Ql (Urine sed) 1+ Normal [facility] Comment on above: Performed By: #### 1 [id number], [id number] ####[facility] [address] [place] [address] Nitrite Ql (U) Negative Normal Negative [facility] Comment on above: Performed By: #### 1 [id number], [id number] ####[facility] [address] [place] [address] pH (U) 7.0 [pH] Invalid Interpretation Code 5.0-9.0 [facility] Comment on above: Performed By: #### 1 [id number], [id number] ####[address] [address] Protein (U) [Mass/Vol] Negative Normal Negative [facility] Comment on above: Performed By: #### 1 [id number], [id number] ####[address] [address] Specific gravity (U) [Rel density] 1.020 Invalid Interpretation Code 1.005-1.030 [facility] Comment on above: Performed By: #### 1 [id number], [id number] ####[address] [address] Type of Urine collection method Clean Catch Normal [facility] Comment on above: Performed By: #### 1 [id number], [id number] ####[address] [address] Urobilinogen Qn (U) 0.2 {Tg'U}/dL Normal 0.0-1.0 [facility] Comment on above: Performed By: #### 1 [id number], [id number] ####[address] [address] WBC Auto Ql (U) Negative Normal Negative [facility] Comment on above: Performed By: #### 1 [id number], [id number] ####[address] [address] WBC LM.HPF (Urine sed) [#/Area] 0-5 Normal 0-5 [facility] Comment on above: Performed By: #### 1 [id number], [id number] ####[address] [address] Vital Signs Date Time Vital Sign Value Performing Clinician Facility 12-01-2023 10:47-0400 Body temperature 98.5 [degF] PHYSICIAN SHARITA [facility] 12-01-2023 10:47-0400 Diastolic blood pressure 71 mm[Hg] PHYSICIAN NO [facility] 12-01-2023 10:47-0400 Heart rate 72 /min PHYSICIAN NO [facility] 12-01-2023 10:47-0400 Respiratory rate 18 /min PHYSICIAN NO [facility] 12-01-2023 10:47-0400 SaO2% (BldA) [Mass fraction] 97 % PHYSICIAN NO [facility] 12-01-2023 10:47-0400 Systolic blood pressure 121 mm[Hg] PHYSICIAN NO [facility] 12-01-2023 08:54-0400 Body height 167.64 cm PHYSICIAN NO [facility] 12-01-2023 08:54-0400 Body weight 100.3 kg PHYSICIAN NO [facility] 05-05-2023 15:54-0500 Body height 165.[address] Work Phone: [facility] 04-13-2023 10:23-0500 Body height 165.1 cm Jona Bermudez MD Work Phone: [facility] 04-13-2023 10:23-0500 Body weight 94.35 kg Jona Bermudez MD Work Phone: [facility] 12-30-2022 13:46-0400 Body height 165.[address] Work Phone: [facility] 12-30-2022 13:46-0400 Body weight 96.[address] Work Phone: [facility] 06-09-2022 09:24-0500 Body height 165.[address] Work Phone: [facility] 06-09-2022 09:24-0500 Body weight 118.[address] Work Phone: [facility] 03-18-2022 13:36-0400 Body height 165.1 cm Pacc 5 Work Phone: [facility] 03-18-2022 13:36-0400 Body temperature 97.39 [degF] Pac 5 Work Phone: [facility] 03-18-2022 13:36-0400 Body weight 143.02 kg Pac 5 Work Phone: [facility] 03-18-2022 13:36-0400 Diastolic blood pressure 81 mm[Hg] Pac 5 Work Phone: [facility] 03-18-2022 13:36-0400 Heart rate 88 /min Pac 5 Work Phone: [facility] 03-18-2022 13:36-0400 SaO2% (BldA) [Mass fraction] 97 % Pac 5 Work Phone: [facility] 03-18-2022 13:36-0400 Systolic blood pressure 133 mm[Hg] Pac 5 Work Phone: [facility] 03-18-2022 11:10-0400 Body height 165.5 cm Jona Bermudez MD Work Phone: [facility] 03-18-2022 11:10-0400 Body weight 141.98 kg Jona Bermudez MD Work Phone: [facility] 03-18-2022 11:10-0400 Diastolic blood pressure 76 mm[Hg] Jona Bermudez MD Work Phone: [facility] 03-18-2022 11:10-0400 Heart rate 78 /min Jona Bermudez MD Work Phone: [facility] 03-18-2022 11:10-0400 Systolic blood pressure 134 mm[Hg] Jona Bermudez MD Work Phone: [facility] 02-08-2022 15:57-0400 Body height 165.1 cm Marco A Byrd Other Phone: [facility] Other Phone (unformatted): [phone] 02-08-2022 15:57-0400 Body temperature 97.88 [degF] Marco A Hoy Other Phone: [facility] Other Phone (unformatted): [phone] 02-08-2022 15:57-0400 Body weight 150 kg Marco A Hoy Other Phone: [facility] Other Phone (unformatted): [phone] 02-08-2022 15:57-0400 Diastolic blood pressure 78 mm[Hg] Marco A Hoy Other Phone: [facility] Other Phone (unformatted): [phone] 02-08-2022 15:57-0400 Heart rate 77 /min Marco A Hoy Other Phone: [facility] Other Phone (unformatted): [phone] 02-08-2022 15:57-0400 Respiratory rate 20 /min Marco A Hoy Other Phone: [facility] Other Phone (unformatted): [phone] 02-08-2022 15:57-0400 SaO2% (BldA) [Mass fraction] 97 % Marco A Hoy Other Phone: [facility] Other Phone (unformatted): [phone] 02-08-2022 15:57-0400 Systolic blood pressure 143 mm[Hg] Marco A Hoy Other Phone: [facility] Other Phone (unformatted): [phone] 12-01-2021 09:31-0400 Body height 167.[address] [facility] 12-01-2021 09:31-0400 Body weight 149.[address] [facility] 11-26-2021 13:50-0400 Diastolic blood pressure 84 mm[Hg] Mulugeta Salmon MD Work Phone: [facility] 11-26-2021 13:50-0400 Heart rate 76 /min Mulugeta Salmon MD Work Phone: [facility] 11-26-2021 13:50-0400 Respiratory rate 15 /min Mulugeta Salmon MD Work Phone: [facility] 11-26-2021 13:50-0400 SaO2% (BldA) [Mass fraction] 95 % Mulugeta Salmon MD Work Phone: [facility] 11-26-2021 13:50-0400 Systolic blood pressure 127 mm[Hg] Mulugeta Salmon MD Work Phone: [facility] 11-26-2021 13:30-0400 Body temperature 97 [degF] Mulugeta Salmon MD Work Phone: [facility] 11-12-2021 15:29-0400 Body height 167.6 cm [facility] 11-12-2021 15:29-0400 Body weight 148.96 kg [facility] 11-07-2021 09:23-0400 Body weight 148.78 kg Danny Cristina Work Phone: [facility] 10-27-2021 17:25-0400 Body height 165.1 cm Myron Jacome Other [employer] Other 10-27-2021 17:25-0400 Body mass index (BMI) [Ratio] 55.74 kg/m2 Myron Jacome Other [employer] Other 10-27-2021 17:25-0400 Body temperature 97.8 [degF] Myron Jacome Other [employer] Other 10-27-2021 17:25-0400 Body weight 151.96 kg Myron Jacome Other [employer] Other 10-27-2021 17:25-0400 SaO2% (BldA) [Mass fraction] 97 % Myron Jacome Other [employer] Other 09-15-2021 14:13-0400 Body height 167.2 cm Jona Bermudez MD Work Phone: [facility] 09-15-2021 14:13-0400 Body weight 152.86 kg Jona Bermudez MD Work Phone: [facility] 09-15-2021 14:13-0400 Diastolic blood pressure 86 mm[Hg] Jona Bermudez MD Work Phone: [facility] 09-15-2021 14:13-0400 Heart rate 92 /min Jona Bermudez MD Work Phone: [facility] 09-15-2021 14:13-0400 Systolic blood pressure 140 mm[Hg] Jona Bermudez MD Work Phone: [facility] Encounters Encounter Date Encounter Type Care Provider Facility Start: 12-06-2023 End: 12-06-2023 ambulatory EAGLE FRANCESCA Not Available Start: 12-01-2023 End: 12-01-2023 Emergency department patient visit PHYSICIAN SHARITA [facility] Work Phone: Start: 11-25-2023 End: 11-25-2023 [...] End: 05-05-2023 Telemedicine consultation with patient Bita Lopezsravanthi PRATT Work Phone: [facility] Start: 04-13-2023 End: 04-13-2023 ambulatory MARCO A BYRD Facility:[facility] Start: 04-13-2023 End: 04-13-2023 ambulatory Jona Bermudez MD Work Phone: General Surgery Comment on above: S/P gastric bypass ( Primary Dx) Start: 04-13-2023 End: 04-13-2023 Telemedicine consultation with patient Jona Bermudez MD Work Phone: [facility] Start: 12-30-2022 End: 12-30-[address] Work Phone: General Surgery Comment on above: S/P gastric bypass ( Primary Dx); Dietary counseling and surveillance Start: 12-30-2022 End: 12-30-2022 Telemedicine consultation with patient Bita Vigil RD Work Phone: [facility] Start: 09-09-2022 End: 09-09-2022 ambulatory BITA YARITZA Facility:[facility] Start: 06-09-2022 End: 06-09-2022 ambulatory BITA YARITZA Facility:[facility] Start: 06-09-2022 End: 06-09-[address] Work Phone: General Surgery Comment on above: S/P gastric bypass ( Primary Dx); Impaired intestinal absorption; Dietary counseling and surveillance Start: 06-09-2022 End: 06-09-2022 Telemedicine consultation with patient Bita Vigil RD Work Phone: [facility] Start: 05-15-2022 End: 05-18-2022 ambulatory JONA BERMUDEZ Facility:[facility] Start: 05-07-2022 End: 05-07-2022 ambulatory oJna Bermudez MD Work Phone: General Surgery Comment on above: History of Cathie-en-Y gastric bypass (Primary Dx) Start: 05-07-2022 End: 05-07-2022 Telemedicine consultation with patient Jona Bermudez MD Work Phone: [facility] Start: 04-08-2022 End: 04-08-2022 ambulatory Fran Chavez Main Work Phone: General Surgery Comment on above: Status post gastric bypass for obesity (Primary Dx); Obesity, Class III, BMI 40-49.9 (morbid obesity) (HCC) Start: 04-08-2022 End: 04-08-2022 Telemedicine consultation with patient Fellow Scott Main Work Phone: [facility] Start: 03-18-2022 End: 03-18-2022 Admission to [facility] Main 5 Work Phone: [facility] Start: 03-18-2022 End: 03-18-2022 ambulatory Pac Main 5 Work Phone: Pre Anesthesia Comment [...] 02-08-2022 Emergency department patient visit [facility] [id number] Other Phone (unformatted): [phone] Start: 01-07-2022 End: 01-07-2022 ambulatory DANUTA MACARIO Facility: Start: 01-05-2022 End: 01-05-2022 Departed Referred PHYSICIAN [facility] Start: 12-24-2021 Admission to [facility] Jona Bermudez MD Work Phone: General Surgery Comment on above: 02/01/2022 ([place] rgery date) Start: 12-24-2021 ambulatory Jona Bermudez MD Work Phone: [facility] Start: 12-23-2021 ambulatory Danny fishman DO Work Phone: General Surgery Comment on above: Question regarding C OMP METABOLIC PANEL Start: 12-23-2021 Telephone encounter Danny Cristina DO Work Phone: General Surgery Comment on above: Results Start: 12-03-2021 End: 12-03-2021 Patient encounter procedure Nurse Card [facility] Re[facility] Work Phone: Cardiology Comment on above: Class 3 severe obesi ty with body mass index (BMI) of 50.0 to 59.9 in adult, unspecified obesity type, unspecified whether serious comorbidity present (HCC) Start: 12-01-2021 End: 12-01-[address] General Surgery Comment on above: Patient Education; R eassessment Start: 11-28-2021 End: 11-28-2021 Subsequent hospital visit by physician [facility] Work Phone: [facility] Radiology Ultrasound Comment on above: Class 3 severe obesi ty with body mass index (BMI) of 50.0 to 59.9 in adult, unspecified obesity type, unspecified whether serious comorbidity present (HCC) [E66.01, Z68.43] Start: 11-28-2021 End: 11-28-2021 Subsequent hospital visit by physician [facility] Work Phone: [facility] Radiology General Comment on above: Class [...] ] Start: 11-12-2021 End: 11-12-2021 Admission to [facility] Start: 11-12-2021 End: 11-12-2021 Preprocedural examination done Pacc Virtual Pre Anesthesia Start: 11-12-2021 End: 11-12-2021 ambulatory Maria T Lares JEANNINE Work Phone: Pre Anesthesia Comment on above: Pre-op Instructions Preoperative examina tion (Primary Dx); Morbidly obese (HCC); Fatty liver; Anxiety and depression Start: 11-12-2021 E-mail encounter fro m caregiver Maria T Lares JEANNINE Work Phone: [facility] Start: 11-07-2021 End: 11-07-2021 ambulatory Dnany Cristina DO Work Phone: General Surgery Comment on above: Class 3 severe obesi ty with body mass index (BMI) of 50.0 to 59.9 in adult, unspecified obesity type, unspecified whether serious comorbidity present (HCC) (Primary Dx); PCOS (polycystic ovarian syndrome) Start: 11-07-2021 End: 11-07-2021 Telemedicine consultation with patient Danny Cristina DO Work Phone: [facility] Start: 10-27-2021 End: 10-27-2021 ambulatory Myron Naa Other [employer] Other Start: 10-27-2021 Office outpatient vi sit 15 minutes Myron Sugar [place] [facility] Start: 10-01-[address] ELMIRA SNOW [...] abdominal real time w/image limited Danny Santamaria Ismaelagnes Work Phone: Start: 11-28-2021 Radiologic exam chest 2 views Danny Santamaria Sheila DO Work Phone: Start: 11-26-2021 Esophagogastroduodenoscopy transoral [...] DTaP,Tdap,Td Vaccine (3 - Td or Tdap) [facility] Start: 12-01-2023 [facility] Start: 02-05-2023 Covid-19 Vaccine ( season) Covid-19 Vaccine ( season) [facility] Start: 02-05-2023 Influenza vaccination C [facility] Start: 10-23-2022 Adult depression screening assessment DEPRESSION SCREENING [facility] Start: 02-05-2022 Influenza vaccination C [facility] Start: 11-07-2021 End: 01-07-2022 CBC W Auto Differential panel - Blood CBC + DIFF Lab Routine Class 3 severe obesity with body mass index (BMI) of 50.0 to 59.9 in adult, unspecified obesity type, unspecified whether serious comorbidity present (HCC) Expected: 11/07/2021, Expires: 01/07/2022 [facility] Work Phone: Comment on above: Expected: 11/07/2021 , Expires: 01/07/2022 Start: 11-07-2021 End: 01-07-2022 Comprehensive metabolic 2000 panel - Serum or Plasma COMP METABOLIC PANEL Lab Routine Class 3 severe obesity with body mass index (BMI) of 50.0 to 59.9 in adult, unspecified obesity type, unspecified whether serious comorbidity present (HCC) Expected: 11/07/2021, Expires: 01/07/2022 [facility] Work Phone: Comment on above: Expected: 11/07/2021 , Expires: 01/07/2022 Start: 11-07-2021 End: 01-07-2022 FERRITIN BLD FERRITIN BLD Lab Routine Class 3 severe obesity with body mass index (BMI) of 50.0 to 59.9 in adult, unspecified obesity type, unspecified whether serious comorbidity present (HCC) Expected: 11/07/2021, Expires: 01/07/2022 [facility] Work Phone: Comment on above: Expected: 11/07/2021 , Expires: 01/07/2022 Start: 11-07-2021 End: 01-07-2022 Folate [Mass/volume] in Serum or Plasma FOLATE SERUM Lab Routine Class 3 severe obesity with body mass index (BMI) of 50.0 to 59.9 in adult, unspecified obesity type, unspecified whether serious comorbidity present (HCC) Expected: 11/07/2021, Expires: 01/07/2022 [facility] Work Phone: Comment on above: Expected: 11/07/2021 , Expires: 01/07/2022 Start: 11-07-2021 End: 01-07-2022 Hemoglobin A1c/Hemoglobin.total in Blood HGB A1C Lab Routine PCOS (polycystic ovarian syndrome) Expected: 11/07/2021, Expires: 01/07/2022 [facility] Work Phone: Comment on above: Expected: 11/07/2021 , Expires: 01/07/2022 Start: 11-07-2021 End: 01-07-2022 IRON + TIBC IRON + TIBC Lab Routine Class 3 severe obesity with body mass index (BMI) of 50.0 to 59.9 in adult, unspecified obesity type, unspecified whether serious comorbidity present (HCC) Expected: 11/07/2021, Expires: 01/07/2022 [facility] Work Phone: Comment on above: Expected: 11/07/2021 , Expires: 01/07/2022 Start: 11-07-2021 End: 01-07-2022 LIPID PANEL BASIC LIPID PANEL BASIC Lab Routine Class 3 severe obesity with body mass index (BMI) of 50.0 to 59.9 in adult, unspecified obesity type, unspecified whether serious comorbidity present (HCC) Expected: 11/07/2021, Expires: 01/07/2022 [facility] Work Phone: Comment on above: Expected: 11/07/2021 , Expires: 01/07/2022 Start: 11-07-2021 End: 01-07-2022 PTH INTACT BLD PTH INTACT BLD Lab Routine Class 3 severe obesity with body mass index (BMI) of 50.0 to 59.9 in adult, unspecified obesity type, unspecified whether serious comorbidity present (HCC) Expected: 11/07/2021, Expires: 01/07/2022 [facility] Work Phone: Comment on above: Expected: 11/07/2021 , Expires: 01/07/2022 Start: 11-07-2021 End: 01-07-2022 Thyrotropin [Units/volume] in Serum or Plasma TSH BLD Lab Routine Class 3 severe obesity with body mass index (BMI) of 50.0 to 59.9 in adult, unspecified obesity type, unspecified whether serious comorbidity present (HCC) Expected: 11/07/2021, Expires: 01/07/2022 [facility] Work Phone: Comment on above: Expected: 11/07/2021 , Expires: 01/07/2022 Start: 11-07-2021 End: 01-07-2022 VITAMIN B1 (THIAMINE), WHOLE BLOOD VITAMIN B1 (THIAMINE), WHOLE BLOOD Lab Routine Class 3 severe obesity with body mass index (BMI) of 50.0 to 59.9 in adult, unspecified obesity type, unspecified whether serious comorbidity present (HCC) Expected: 11/07/2021, Expires: 01/07/2022 [facility] Work Phone: Comment on above: Expected: 11/07/2021 , Expires: 01/07/2022 Start: 11-07-2021 End: 01-07-2022 VITAMIN B12 BLOOD VITAMIN B12 BLOOD Lab Routine Class 3 severe obesity with body mass index (BMI) of 50.0 to 59.9 in adult, unspecified obesity type, unspecified whether serious comorbidity present (HCC) Expected: 11/07/2021, Expires: 01/07/2022 [facility] Work Phone: Comment on above: Expected: 11/07/2021 , Expires: 01/07/2022 Start: 11-07-2021 End: 01-07-2022 VITAMIN D 25 HYDROXY VITAMIN D 25 HYDROXY Lab Routine Class 3 severe obesity with body mass index (BMI) of 50.0 to 59.9 in adult, unspecified obesity type, unspecified whether serious comorbidity present (HCC) Expected: 11/07/2021, Expires: 01/07/2022 [facility] Work Phone: Comment on above: Expected: 11/07/2021 , Expires: 01/07/2022 Start: 09-29-2021 End: 09-15-2022 EGD BARIATRIC EGD BARIATRIC Endoscopy Routine Morbid obesity due to excess calories (HCC) Expected: 09/29/2021, Expires: 09/15/2022 [facility] Work Phone: Comment on above: Expected: 09/29/2021 , Expires: 09/15/2022 Start: 05-21-2021 COVID-19 VACCINE (5 - Booster) COVID-19 VACCINE (5 - Booster) [facility] Start: 05-21-2021 COVID-19 VACCINE (5 - Pfizer series) COVID-19 VACCINE (5 - Pfizer series) [facility] Start: 2019 HPV TESTING HPV TESTING [facility] Start: 2010 PAP TESTING PAP TESTING [facility] Start: 2008 Urine microalbumin profile DTAP,TDAP,TD (1 - Tdap) [facility] Start: 2007 HEPATITIS C SCREENING HEPATITIS C SC REENING [facility] Start: 2007 HIV SCREENING HIV SCREENING [facility] Start: 2001 Adult depression screening assessment DEPRESSION SCREENING [facility] Start: 1989 HEPATITIS B (1 of 3 - 3-dose series) HEPATITIS B (1 of 3 - 3-dose series) [facility] Start: 1989 Hepatitis B Vaccine (1 of 3 - 3-dose series) Hepatitis B Vaccine (1 of 3 - 3-dose series) [facility] Basophils [#/volume] in Blood by Automated count [facility] Basophils/100 leukoc ytes in Blood by Automated count [facility] End: 11-07-2022 ECG COMPLETE ECG COMPLETE ECG Routine Class 3 severe obesity with body mass index (BMI) of 50.0 to 59.9 in adult, unspecified obesity type, unspecified whether serious comorbidity present (HCC) 1 Occurrences starting 11/07/2021 until 11/07/2022 [facility] Work Phone: Comment on above: 1 Occurrences starti ng 11/07/2021 until 11/07/2022 End: 09-16-2022 EGD DIAGNOSTIC EGD DIAGNOSTIC Endoscopy Routine Pre-op exam 1 Occurrences starting 09/16/2021 until 09/16/2022 [facility] Work Phone: Comment on above: 1 Occurrences starti ng 09/16/2021 until 09/16/2022 Eosinophils/100 leukocytes in Blood by Automated count [facility] Lymphocytes [#/volum e] in Blood by Automated count [facility] Lymphocytes/100 leukocytes in Blood by Automated count [facility] Monocytes [#/volume] in Blood by Automated count [facility] Monocytes/100 leukoc ytes in Blood by Automated count [facility] Neutrophils [#/volum e] in Blood by Automated count [facility] Neutrophils/100 leukocytes in Blood by Automated count [facility] Nucleated erythrocyt es [Presence] in Blood by Automated count [facility] Patient Education care [facility] Work Phone: Patient referral [facility] Work Phone: End: 12-07-2022 Radiologic exam chest 2 views XR CHEST 2V FRONTAL/LAT Radiology Routine Class 3 severe obesity with body mass index (BMI) of 50.0 to 59.9 in adult, unspecified obesity type, unspecified whether serious comorbidity present (HCC) 1 Occurrences starting 11/07/2021 until 12/07/2022 [facility] Work Phone: Comment on above: 1 Occurrences starti ng 11/07/2021 until 12/07/2022 End: 12-07-2022 Us abdominal real time w/image limited US ABD RT UPPER QUADRANT Radiology Routine Class 3 severe obesity with body mass index (BMI) of 50.0 to 59.9 in adult, unspecified obesity type, unspecified whether serious comorbidity present (HCC) 1 Occurrences starting 11/07/2021 until 12/07/2022 [facility] Work Phone: Comment on above: 1 Occurrences starti ng 11/07/2021 until 12/07/2022 [facility] Immunizations Immunization Date Immunization Notes Care Provider Vincent epps 03-11-2022 influenza virus vacc ine, unspecified formulation Jona Bermudez MD Work Phone: [facility] Payers Date Payer Category Payer Unknown MMO MMO SU[employer] PLUS [id number] 2021-Present [phone] [address] [place] [address] PPO [id number] 2021 Unknown 1989 Unknown [id number] 1989 Unknown [id number] 1989 Unknown [id number] 1989 Unknown [id number] 1989 Unknown [id number] 1989 Unknown [id number] 1989 Unknown [id number] 1989 Unknown [id number] 1989 Unknown [id number] 1989 Unknown [id number] 1959 Self-pay 1960 Unknown [id number] Social History Date Type Detail Facility Start: 09-15-2021 End: 12-01-2023 Tobacco smoking status MDIS Never smoked tobacco [facility] Start: 09-15-2021 End: 03-18-2022 Tobacco use and exposure Smokeless tobacco non-user [facility] Start: 1990 Sex Assigned At Not on file [facility] Start: 09-05-2021 End: 03-26-2022 Exposure to SARS-CoV-2 (event) Not sure [facility] Start: 11-12-2021 Alcohol intake Current drinke r of alcohol (finding) [facility] Start: 11-12-2021 History SDOH Alcohol Comment Not weekly [facility] Start: 03-18-2022 End: 12-30-2022 Sex Assigned At [facility] Start: 1990 Sex Assigned At Female F [facility] Tobacco smoking consumption unknown [facility] Other Phone (unformatted): [phone] Start: 02-13-2022 End: 02-23-2022 Exposure to SARS-CoV-2 (event) Yes [facility] Start: 03-18-2022 End: 04-13-2023 Alcohol intake Ex-drinker (finding) [facility] Start: 03-18-2022 End: 12-30-2022 History of Social function [facility] Adult Depression Screening Assessment 0 [facility] Clinical Notes 12-20-2020 to 05-05-[address] - 05/05/2023 3:54 PM ESTCoJona Foote MD - 04/13/2023 10:20 AM ESTPatient [address]ita Lei RD - 12/30/2022 1:16 PM EDTPatient Instructions Note Date & Type Note Facility 05-05-2023 Note HNO ID: [id number] Author: Bita Vigil RD Service: ? Author Type: Registered Dietitian Type: Progress Notes Filed: 05/05/2023 5:03 PM Note Text: [facility] Nutrition Therapy: Virtual Consult - Re-assessment I have communicated my name and active licensure. The patient?s identity and physical location were verified at the time of this visit. Either the patient or their legal financial foundations representative has been informed of the risks [...] Capsule with 45 mg Iron AND additional 1245-3077 mg per day Calcium Citrate 5. 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 Exercise: [...] Physical limitations affect (more content not included)... [facility] 05-05-[address] - [...] Capsule with 45 mg Iron AND additional 7800-1297 mg per day Calcium Citrate 5. Exercise: [...] last 30 minutes documented in this encounter [facility] 05-05-2023 History of Present illness Narrative [facility] Nutrition Therapy: Virtual Consult - Re-assessment I have communicated my name and active licensure. The patient s identity and physical location were verified at the time of this visit. Either the patient or their legal financial foundations representative has been informed of the risks [...] Capsule with 45 mg Iron AND additional 0077-9653 mg per day Calcium Citrate 5. 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 Exercise: [...] 3:54 PM PAGER: documented in this encounter [facility] 04-13-2023 Note HNO ID: [id number] Author: Jona Johns MD Service: ? Author Type: Physician Type: Progress Notes Filed: 04/13/2023 10:55 AM Note Text: Metabolic Surgery Postoperative Virtual Clinic Visit Name: Funmilayo Conway I have communicated my name and active licensure. The patient's identity and physical location were verified at the time of this visit. Either the patient or their legal financial foundations representative has been informed of the risks [...] Nutrition next week Jona Cormier MD, FACS, [facility] manager community development [facility] Bariatric Fellowship Bond BrokerOperations Project Manager laparoscopic Surgery Bariatric and Metabolic [place] [facility] 04-13-2023 History of Present illness Narrative Images from the original note were not included. Metabolic Surgery Postoperative Virtual Clinic Visit Name: Funmilayo Conway I have communicated my name and active licensure. The patient's identity and physical location were verified at the time of this visit. Either the patient or their legal financial foundations representative has been informed of the risks [...] Nutrition next week Jona Cormier MD, FACS, [employer] manager community development [facility] Bariatric Fellowship Bond BrokerOperations Project Manager laparoscopic Surgery Bariatric and Metabolic [place] documented in this encounter [facility] 12-30-2022 Note HNO ID: [id number] Author: Bita Vigil RD Service: ? Author [...] states doing well with no current concerns. 8391-0736 calories/day - advancing appropriately 80-100 protein intake/day - meeting needs 64+ fluid intake/day - meeting needs Taking all recommended vitamin/minerals from Bariatric Fusion 1/day MVI with 45 mg Fe, 600 mg Ca citrated BID, and biotin. No new labs. Resting Metabolic Rate: 1722 Energy needs for weight loss 5725-1242 (15-20 kcals/kg CBW) Protein needs: 85 grams [...] Multivitamin Capsule with 45 mg Iron AND 9501-1531 mg per day Calcium Citrate 5. Exercise: [...] 25 minutes - Group Bita Vigil RD [facility] 12-30-[address] - [...] Multivitamin Capsule with 45 mg Iron AND 6575-1967 mg per day Calcium Citrate 5. Exercise: strive for daily activity. Increase as tolerated to goal of 200 minutes/week with combination of cardio and strength training exercise. 6. Practice mindful eating habits-take small portions, eat slowly, chew thoroughly documented in this encounter [facility] 12-30-2022 History of Present illness Narrative [...] states doing well with no current concerns. 8987-7081 calories/day - advancing appropriately 80-100 protein intake/day - meeting needs 64+ fluid intake/day - meeting needs Taking all recommended vitamin/minerals from Bariatric Fusion 1/day MVI with 45 mg Fe, 600 mg Ca citrated BID, and biotin. No new labs. Resting Metabolic Rate: 1722 Energy needs for weight loss 9864-9169 (15-20 kcals/kg CBW) Protein needs: 85 grams [...] Multivitamin Capsule with 45 mg Iron AND 3754-1428 mg per day Calcium Citrate 5. Exercise: [...] Bita Vigil RD documented in this encounter [facility] 09-09-2022 Note HNO ID: [id number] Author: Bita Vigil RD Service: ? Author [...] Rate: 1889 Energy needs for weight loss 1010-6708 (10-15 kcals/kg CBW) Protein needs: 85 grams [...] 32 minutes - Group Bita Vigil RD [facility] 06-09-2022 Note HNO ID: [id number] Author: Bita Vigil RD Service: ? Author Type: Registered Dietitian Type: Progress Notes Filed: 06/09/2022 10:17 AM Note Text: [facility] Nutrition Therapy: Virtual Consult - Re-assessment [...] mg Iron and Calcium Citrate (total of 0255-3685 mg/day) * take calcium citrate separately from [...] Rate: 1992 Energy needs for weight loss 1245-6024 (10-15 kcals/kg CBW) Protein needs: 85 grams [...] Bariatric Multivitamin and Calcium Citrate (total of 9528-1128 mg/day) * take calcium citrate separately from Multivitamin with iron at least 2 hours apart and 4 hours apart from additional calcium www.Lime MicrosystemsareOobafit.Pavlov Media - Bariatric Choice: 4 Complete Multivitamins (chewables) [...] veggie OR chili Snack - none OR palauan yogurt Dinner - same as lunch Snack [...] 1-3 days/week) Anthropometrics: (more content not included)... [facility] 06-09-[address] - [...] mg Iron and Calcium Citrate (total of 7854-3294 mg/day) * take calcium citrate separately from [...] assessment (294 lbs) documented in this encounter [facility] 06-09-2022 History of Present illness Narrative [facility] Nutrition Therapy: Virtual Consult - Re-assessment [...] mg Iron and Calcium Citrate (total of 2571-9812 mg/day) * take calcium citrate separately from [...] Rate: 1992 Energy needs for weight loss 2224-6094 (10-15 kcals/kg CBW) Protein needs: 85 grams [...] in the AM, 2 in the PM) www.bariatricfusion.Pavlov Media - [employer] [facility]: 1 Bariatric Multivitamin and Calcium Citrate (total of 0847-1456 mg/day) * take calcium citrate separately from Multivitamin with iron at least 2 hours apart and 4 hours apart from additional calcium www.Proterro.Pavlov Media - Bariatric Choice: 4 Complete Multivitamins (chewables) per day Www.bariatricchoRadiation Watch.Pavlov Media - Bariatric Advantage: 2 Multivitamins and 3 Calcium Citrate Chewables per day * take calcium citrate separately from Multivitamin with iron at least 2 hours apart and 4 hours apart from additional calcium Www.bariatricadO Entregador.Pavlov Media 2. Protein goal: 85 grams protein/day 3. [...] veggie OR chili Snack - none OR palauan yogurt Dinner - same as lunch Snack [...] 9:25 AM PAGER: documented in this encounter [facility] 05-17-2022 Note HNO ID: [id number] Author: Louise Herbert, PhD Service: ? Author Type: Psychologist Type: Progress Notes Filed: 05/18/2022 8:58 AM Note Text: [facility] DEPARTMENT OF PSYCHIATRY AND PSYCHOLOGY/[facility]IC [facility] Bariatric Behavioral Services Progress Note May 17, 2022 Billing codes: FAYE Herbert CPT Code: 23813 Brief Emotional/Behavioral Assessment with scoring/documentation [id number] Virtual GROUP PSYCHOTHERAPY Time initiated session: 8:30 AM to 9:30 AM Index Surgery Date of Surgery: 03/26/22 Surgeon: Dr. Cormier. Surgical Procedure: gastric bypass Current weight: 283 pounds Psychologist: Piedad Pt was seen in a virtual group. Participants were given the opportunity to discuss their experience since surgery and ask questions of other group members. The group precision lens grinder apprentice addressed questions and concerns related to psychological [...] hoped. She was able to navigate a iFormulary well - I felt normal. Patient mood [...] groups *on-going follow-up with BMI team Louise Herbert, PhD, RD, LD, [facility] ACS-CEP, Psychologist [facility] 05-07-2022 History of Present illness Narrative Metabolic Surgery Postoperative Virtual Clinic Visit Name: Funmilayo Conway This visit was performed virtually via TrustedAd technology due to the COVID-19 epidemic as [...] & Bariatric Surgery Fellow Bariatric & Metabolic [place] [facility] STAFF ATTESTATION: I have reviewed the [...] which included preparing to see the patient, [id number] patient care, completing clinical documentation, obtaining and/or [...] Jona Cormier MD documented in this encounter [facility] 04-08-2022 History of Present illness Narrative BARIATRIC SURGERY CLINIC FOLLOW UP NOTE Clinic Date: 04/08/2022 Funmilayo Conway, 31 year old [address] [facility] [address] This visit was performed virtually (phone conversation) [...] 03/18/22: 143 kg (315 lb 4.8 oz). [place] weight: 68.5 kg (150 lb 15.1 oz) [...] rashes or skin changes. PHYSICAL EXAM: PHYSICAL EXAMINATION:[facility] 03/16/2021 GENERAL: No apparent distress. Pt [...] and Bariatric Surgery documented in this encounter [facility] 03-18-2022 History of Present illness Narrative BARIATRIC SURGERY PREOPERATIVE VISIT NOTE Name: Funmilayo Conway Medical Record: [id number] Encounter No.: [id number] Funmilayo Conway is a 31 year old [...] which included preparing to see the patient, [id number] patient care, completing clinical documentation, obtaining and/or reviewing separately obtained history, counseling and educating the patient/family/caregiver, and ordering medications, tests, or procedures. Prescriptions were explained and provided to the patient. Jona Bermudez MD Advanced Laparoscopic and Bariatric Surgery documented in this encounter [facility] 03-18-2022 Instructions Kwame Rodriguez APRN.RESEARCH WORKER ENCYCLOPEDIA - 03/18/2022 2:08 PM EDT PATIENT PREOPERATIVE INSTRUCTIONS Jerardo Johns* has scheduled you for your procedure at this surgery center: [facility] Scheduling Office: [phone] --[address] [place] [address]. Please read below carefully for your personalized [...] Procedures: - YOU MUST HAVE A RESPONSIBLE LADIES ATTENDANT TAKE YOU HOME. A FIELD SALES EXECUTIVE OR LEADERSHIP COACH CANNOT BE MADE A RESPONSIBLE LADIES ATTENDANT. - We recommend that a responsible person [...] call the Wednesday before. Your surgeon s varnishing machine operator will tell you what time to call the office. - If you have not reached the departmental varnishing machine operator by 5 P.M., call [phone] after 5 P.M. the day before your surgery. Please be aware that emergency situations arise, which may delay or change your surgical time. If this happens, we will notify you as soon as possible and regret any inconvenience. If you already have an Advance Directive, please fax a copy to [phone] or email to for it to be [...] into your chart that day. Kwame Rodriguez APRN.OJSE documented in this encounter [facility] 03-18-2022 History and physical note HISTORY [...] fevers. Neuro: No history of TIA's, stroke, DIRECTOR AUTO tumor, impaired sensorium, hemiplegia, paraplegia or quadraplegia. [...] or incontinence,, stones or chronic kidney disease SENIOR SUSTAINABILITY ADVISOR: Negative for abnormal vaginal bleeding, abnormal vaginal [...] TIME: 1:59 PM documented in this encounter [facility] 03-13-2022 Miscellaneous Notes BMI SPECIALTY CARE [...] Jagruti Escobar RN documented in this encounter [facility] 03-10-[address] - [...] fish, low fat dairy - cottage cheese, Kyrgyz yogurt, light yogurt, cheese, ricotta cheese, nuts, [...] multiple options- look on website Www.celebratevitamins.com - [employer] Health: 1 Multivitamin and Calcium Citrate twice a day (total of 8136-9889 mg/day) * take calcium citrate separately from Multivitamin with iron at least 2 hours apart and 4 hours apart from additional calcium www.Proterro.Pavlov Media - Bariatric Choice: 4 complete multivitamins (chewable) [...] weeks post op documented in this encounter [facility] 03-10-2022 History of Present illness Narrative [...] fish, low fat dairy - cottage cheese, Kyrgyz yogurt, light yogurt, cheese, ricotta cheese, nuts, [...] - Celebrate: multiple options- look on website Www.DoubleUpebratevitamins.Pavlov Media - [employer] [facility]: 1 Multivitamin and Calcium Citrate twice a day (total of 5619-1115 mg/day) * take calcium citrate separately from Multivitamin with iron at least 2 hours apart and 4 hours apart from additional calcium www.Proterro.Pavlov Media - Bariatric Choice: 4 complete multivitamins (chewables) per day Www.bariatricchoice.Pavlov Media - Bariatric Advantage: 2 Multivitamins and 3 Calcium Citrate Chewables per day * take calcium citrate separately from Multivitamin with iron at least 2 hours apart and 4 hours apart from additional calcium www.bariatricadCarbon Objectsage.Pavlov Media B complex with at least 75 mg [...] fish, low fat dairy - cottage cheese, Kyrgyz yogurt, light yogurt, cheese, ricotta cheese, nuts, [...] - Celebrate: multiple options- look on website Www.DoubleUpebratevitamins.Pavlov Media - [employer] [facility]: 1 Multivitamin and Calcium Citrate twice a day (total of 8222-8589 mg/day) * take calcium citrate separately from Multivitamin with iron at least 2 hours apart and 4 hours apart from additional calcium www.Proterro.Pavlov Media - Bariatric Choice: 4 complete multivitamins (chewable) per day Www.bariatricchoice.Pavlov Media - Bariatric Advantage: 2 Multivitamins and 3 Calcium Citrate Chewable per day * take calcium citrate separately from Multivitamin with iron at least 2 hours apart and 4 hours apart from additional calcium www.bariatricadvantage.Pavlov Media B complex with at least 75 mg [...] Group Signed by: Francoise Hardwick RDN, JOSE, MFN documented in this encounter [facility] 12-23-2021 Miscellaneous Notes The following approved [...] Danny Cristina DO documented in this encounter [facility] 12-03-2021 Nurse Note EKG completed and reviewed; documented in this encounter [facility] 12-01-2021 History of Present illness Narrative [...] in the AM, 2 in the PM) www.bariatricfusion.Pavlov Media - [employer] [facility]: 1 Bariatric Multivitamin and Calcium Citrate (total of 8220-2122 mg/day) * take calcium citrate separately from Multivitamin with iron at least 2 hours apart and 4 hours apart from additional calcium www.Lime MicrosystemsareOobafit.Pavlov Media - Bariatric Choice: 4 Complete Multivitamins (chewables) per day Www.bariatricchoRadiation Watch.Pavlov Media - Bariatric Advantage: 2 Multivitamins and 3 [...] fish, low fat dairy - cottage cheese, Kyrgyz yogurt, light yogurt, cheese, ricotta cheese, nuts, [...] - Celebrate: multiple options- look on website Www.DoubleUpebratevitamins.Pavlov Media - [employer] [facility]: 1 Multivitamin and Calcium Citrate twice a day (total of 2625-7189 mg/day) * take calcium citrate separately from Multivitamin with iron at least 2 hours apart and 4 hours apart from additional calcium www.Proterro.Pavlov Media - Bariatric Choice: 4 complete multivitamins (chewables) per day Www.bariatricchoice.Pavlov Media - Bariatric Advantage: 2 Multivitamins and 3 Calcium Citrate Chewables per day * take calcium citrate separately from Multivitamin with iron at least 2 hours apart and 4 hours apart from additional calcium www.bariatricadO Entregador.Pavlov Media B complex with at least 75 mg [...] minutes - Group Signed by: Davida Kaur MS,RD,CSRENA,LD documented in this encounter [facility] 11-28-2021 Note HNO ID: [id number] Author: Keira Salvador RDMS, RVT Service: Radiology Author Type: Hardening 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 Helper Type: Progress Notes Filed: 11/28/2021 1:52 PM [...] RDMS, RVT November 28, 2021 1:52 PM [facility] 11-28-2021 History of Present illness Narrative [...] 2021 1:52 PM documented in this encounter [facility] 11-28-2021 Note HNO ID: [id number] Author: RT Leann(Naresh) Service: ? Author Type: [...] RT Leann(R) November 28, 2021 12:58 PM [facility] 11-28-2021 History of Present illness Narrative [...] 2021 12:58 PM documented in this encounter [facility] 11-26-2021 History and physical note UPDATED [...] Pcp This is a virtual visit using InstantMarketing video visit. It required patient-provider interaction for [...] fevers. Neurological: No history of TIA's, stroke, DIRECTOR AUTO tumor, impaired sensorium, hemiplegia, paraplegia or quadraplegia. [...] > 1 time per night or hematuria. SENIOR SUSTAINABILITY ADVISOR: Negative for abnormal vaginal bleeding, abnormal vaginal [...] Prior to Admission medications as of 11/12/21 3996 Medication Sig Last Dose Taking FLUoxetine HCl [...] or any previous visit (from the past 03680 hour(s)). Assessment Morbidly obese (HCC) Assessment: Body [...] or younger Non-male patient STOP-Bang Score: 3 [id number] Score: Age: <65 Sex: female CHF history: No Hypertension history: No Stroke/TIA/thromboembolism history: No Vascular disease history: No Diabetes history: No [id number] Score: 1 ASA Class: 3 ANESTHESIA FINDINGS: [...] PM PAGER/CONTACT #: documented in this encounter [facility] 11-12-2021 History and physical note Images from the original note were not included. HISTORY AND PHYSICAL EXAMINATION SERVICE DATE: 11/12/2021 SERVICE TIME: 3:26 PM PRIMARY CARE PHYSICIAN: Sharita Pcp This is a virtual visit using InstantMarketing video visit. It required patient-provider interaction for [...] fevers. Neurological: No history of TIA's, stroke, DIRECTOR AUTO tumor, impaired sensorium, hemiplegia, paraplegia or quadraplegia. [...] > 1 time per night or hematuria. SENIOR SUSTAINABILITY ADVISOR: Negative for abnormal vaginal bleeding, abnormal vaginal [...] or any previous visit (from the past 53616 hour(s)). Assessment Morbidly obese (HCC) Assessment: Body [...] or younger Non-male patient STOP-Bang Score: 3 [id number] Score: Age: <65 Sex: female CHF history: No Hypertension history: No Stroke/TIA/thromboembolism history: No Vascular disease history: No Diabetes history: No [id number] Score: 1 ASA Class: 3 ANESTHESIA FINDINGS: [...] PM PAGER/CONTACT #: documented in this encounter [facility] 11-12-2021 Instructions Maria T Lares APRN.CNP - 11/12/2021 3:40 PM EDT PATIENT PREOPERATIVE INSTRUCTIONS Mulugeta Salmon MD has scheduled you for your procedure at this surgery center: [facility]: [phone] --[address] [place] [address]. Please enter through the entrance closest to [facility]. Please read below carefully for your [...] Procedures: - YOU MUST HAVE A RESPONSIBLE LADIES ATTENDANT TAKE YOU HOME. A FIELD SALES EXECUTIVE OR LEADERSHIP COACH CANNOT BE MADE A RESPONSIBLE LADIES ATTENDANT. - We recommend that a responsible person [...] Advance Directive, please fax a copy to [phone] or email to for it to be [...] T Lares APRN.CNP documented in this encounter [facility] 11-07-2021 Instructions Danny Cristina DO - 11/07/2021 9:39 AM EDT Lovely Conway , Thank you for completing your visit today and we welcome you to the surgical program. We are sure that you will still have some additional questions and encourage you to reach out to your care provider via [employer] OR your Patient Navigator. Patient Navigators are assigned alphabetically by patient last name. The contact information for each Navigator is listed below. Last names A-E= Airam Last names F-L = Opal Last names M-R= [email or web address] Last names S-Z= Zoe Additionally, you may [...] free to ask for a hard copy. [email or web address] en Once you complete all of the requirements (testing, consultations, diet, etc) from each provider, please call [phone] and select option #5 to initiate insurance approval. Please note scheduling information It is important to keep track of your scheduled appointments to ensure successful completion of our surgical program. Any missed appointments can further delay your pre-surgical work-up. [facility] does offer an opt-in option for getting text message appointment reminders. Please follow the link below if you would like to opt into this service. [email or web address] [id number] As part of your surgical work up, [...] may call your local [facility] to get an appointment. - Lab work- No appointment is needed for this, you may complete at any [facility]. These are usually fasting labs, please be sure to fast (only water permitted) for 10-12 hours prior to the test. -Sleep Study- Please call [phone] or [phone] to get this appointment set up. -Sleep Medicine Consult- (Only needed if sleep study confirms sleep apnea) Please call [phone] or [phone] to schedule an appointment. -Upper GI/ EGD- Please call [phone] to schedule. -Provider follow up visit- Please call [phone] OR [phone] to schedule. Any testing that is completed outside of [facility] will need faxed to [phone]. We look forward to working with you on this journey, Danny Cristina DO documented in this encounter [facility] 11-07-2021 History of Present illness Narrative [...] healthy diet. Since the visit with the bag liner, eating less starch, not skipping meals, and eating more vegetables. Characterization of diet:Structured. History of eating disorders: negative Previous Obesity Treatments: commercial diets and dietitian. Exercise: Regular exercise: walking 3 times a week Barriers to regular exercise? None Stress test: no Functional Status: Run a short distance (8.00 METs) Sleep: TANI NO ; CPAP NO Quality:poor, Numerous awakenings Pharmacy Customer Care Specialist Work? NO STOP BANG 1. Snoring : [...] Danny Cristina DO documented in this encounter [facility] 10-27-2021 Evaluation note Encounter Date Diagnosis [...] Patient care instructions given in writting by [facility] Care At Home document. [employer] Other [id number] History of Present illness Narrative* Jagruti Escobar RN - 09/16/2021 9:47 AM EDT Opened in error. [facility] History of Present illness Narrative* Jona Bermudez MD - 09/15/2021 3:18 PM EDT Images from the original note were not included. [facility] DEPARTMENT [facility] SURGERY Jona Cormier M.D. [address] [place] [address], [place] [id number] NAME: Funmilayo Conway [facility] NO: [id number] DATE OF SERVICE: September 15, 2021 This [...] which included preparing to see the patient, [id number] patient care, completing clinical documentation, obtaining and/or reviewing separately obtained history, performing a medically appropriate examination, counseling and educating the pat ient/family/caregiver and ordering medications, tests, or procedures. Jona Bermudez MD Advanced Laparoscopic and Bariatric Surgery [facility] NoteChief Complaint consultation for GI complaints [...] Vaccine Date Status Com (more content not included)...[facility] HospitalComment on above:Result Comment: Electronically Signed By: EDY JOYCE, Elmira Diamond\Date and Time Signed: 08/04/21 17:32 [id number] NoteAdmission Information Admitting Physician - Neela LIM [...] voiding. Patient is eager to be discharged [place]. --Other chronic medical conditions as outlined in note. Refer to d/c plan below: -Case reviewed and discussed with Dr. Graham who is in agreement with current d/c plan. Case will be reviewed and discussed with PCP or television journalist MD once the hospital tape edge machine operator is able to reach him/her. [...] made to ensure accuracy, however, inadvertently computerized folder seamer automatic mistakes may be present. Significant Findings CT [...] and spleen are not included within the [id number] of this renal stone protocol study. The [...] Ferreira DO 12/20/20 07:33: (more content not included)...[facility] HospitalComment on above:Result Comment: Electronically Signed By: Prerna CAVANAUGH\.br\Date and Time Signed: 12/20/20 10:28 EDT\.br\Electronically Co-Signed By: Jarred GRAHAM MD\.br\Date and Time Co-Signed: 01/13/21 08:22 [id number] NoteMicrobiology PROCEDURE: Blood Culture Charcoal [R1] SOURCE: Blood BODY SITE: Arm L COLLECTED DATE/TIME: 12/19/2020 17:25 EDT RECEIVED DATE/TIME: 12/19/2020 17:39 EDT START DATE/TIME: 12/19/2020 17:39 EDT FREE TEXT SOURCE: IV start Jhon DO, Shiva S. Jhon DO, Shiva S. FINAL REPORTS Final Report [] Verified Date/Time: 12/26/2020 18:00 EDT No growth at 7 days. Performing Locations R1: This test [facility] performed at: [facility], [address] [place] [address], [id number] [place] [address], BhitgiOhiohealth Mansfield HospitalComment on above:Performed By: #### [id number] #### [address] [id number] NoteMicrobiology PROCEDURE: Blood Culture Charcoal [R1] SOURCE: Blood BODY SITE: Arm R COLLECTED DATE/TIME: 12/19/2020 17:30 EDT RECEIVED DATE/TIME: 12/19/2020 17:39 EDT START DATE/TIME: 12/19/2020 17:39 EDT FREE TEXT SOURCE: Jhon DO, Shiva S. Jhon DO, Shiva S. FINAL REPORTS Final Report [] Verified Date/Time: 12/26/2020 18:00 EDT No growth at 7 days. Performing Locations R1: This test was performed at: [facility], [address] [place] [address], [id number] [place] [address], YyarufOhiohealth Mansfield HospitalComment on above:Performed By: #### [id number] ####[facility] [address] [place], [place] [id number] Marsha Flores entered room at this time [...] needs. Anticipated discharge home 12/20. CRM remains available.[facility] HospitalComment on above:Result Comment: Electronically Signed By: Janusz SOLIS, Sandra Houston\Date and Time Signed: 12/20/20 08:26 [id number] Note Chief Complaint From home, patient complains [...] 17:30:00) Lymph Auto: 29.4 % (12/19/20 17:30:00) Chippewa Auto: 7.8 % (12/19/20 17:30:00) Eos Auto: 0.6 % (12/19/20 17:30:00) Basophil Auto: 0.7 % (12/19/20 17:30:00) Neutro Absolute: 5.1 E9/L (12/19/20 17:30:00) Lymph Absolute: 2.5 E9/L (12/19/20 17:30:00) Chippewa Absolute: 0.7 E9/L (12/19/20 17:30:00) Eos Absolute: 0.1 E9/L (12/19/20 17:30:00) Basophil Absolute: 0.1 E9/L (12/19/20:30:00) Glucose Lvl: 90 mg/dL (12/19/20:30:00) BUN: 6 mg/dL (12/19/20::00) Creatinine: 0.5 mg/dL (12/19/20:30:00) eGFR: >60 (12/19/20:) eGFR AA: >60 (12/19/20:) BUN/Creat Ratio: 12 (12/19/20:) Sodium Lvl: 138 mmol/L (12/19/20:00) Potassium Lvl: 3.8 mmol/L (12/19/20) Chloride: 103 mmol/L (12/19/20:) CO2: 25 mmol/L (12/19/20:) AGAP: 14 mEq/L (12/19/20::) Calcium Lvl: 8.9 mg/dL (12/19/20::00) Alk Phos: 44 Int._Unit/L (12/19/20:30:00) ALT: 22 Int._Unit/L (12/19/20:00) AST: 18 Int._Unit/L (12/19/20:) Total Protein: 8.2 gm/dL High (12/19/20:30:00) Albumin Lvl: 4.2 gm/dL (12/19/20:30:00) Globulin: 4 gm/dL (12/19/20::00) A/G Ratio: 1 Low (12/19/20:30:00) Bili Total: [...] See #1 3. L (more content not included)...[facility] HospitalComment on above: Result Comment: Electronically Signed By: Neela LIM DO\Date and Time Signed: 12/20/20 05:29 EDTEvaluation note* Diagnosis Morbid obesity due to excess calories (HCC)- Primary History of delivery Other postprocedural status [facility] Diagnosis Pre-op exam- Primary Preoperative examination, unspecified [facility]* Diagnosis Morbid obesity (HCC)- Primary Morbid obesity [facility] Diagnosis Class 3 severe obesity with body mass index (BMI) of 50.0 to 59.9 in adult, unspecified obesity type, unspecified whether serious comorbidity present (HCC)- Primary PCOS (polycystic ovarian syndrome) Polycystic ovaries documented in this encounter [facility] note* Diagnosis Preoperative examination- Primary Preoperative examination, unspecified Morbidly obese (HCC) Morbid obesity Fatty liver Other chronic nonalcoholic liver disease Anxiety and depression Dysthymic disorder documented in this encounter [facility] note* Diagnosis Pre-op exam Preoperative examination, unspecified documented in this encounter [facility] note* Diagnosis Class 3 severe obesity with body mass index (BMI) of 50.0 to 59.9 in adult, unspecified obesity type, unspecified whether serious comorbidity present (HCC) documented in this encounter [facility] note* Diagnosis Class 3 severe obesity with body mass index (BMI) of 50.0 to 59.9 in adult, unspecified obesity type, unspecified whether serious comorbidity present (HCC)- Primary Dietary counseling and surveillance Dietary surveillance and counseling PCOS (polycystic ovarian syndrome) Polycystic ovaries documented in this encounter [facility] note* Diagnosis Class 3 severe obesity with body mass index (BMI) of 50.0 to 59.9 in adult, unspecified obesity type, unspecified whether serious comorbidity present (HCC) documented in this encounter [facility] note* Diagnosis Morbid obesity (HCC)- Primary Morbid obesity documented in this encounter [facility] noteNo assessment information availableTrinity Health System Work Phone: Evaluation note* Diagnosis BMI 50.0-59.9, adult (HCC)- Primary Body Mass Index 50.0-59.9, adult Dietary counseling Dietary surveillance and counseling Morbid obesity (HCC) Morbid obesity documented in this encounter [facility] note* Diagnosis Anxiety and depression Dysthymic disorder Morbid obesity (HCC) Morbid obesity documented in this encounter [facility] note* Diagnosis BMI 50.0-59.9, adult (HCC)- Primary Body Mass Index 50.0-59.9, adult PCOS (polycystic ovarian syndrome) Polycystic ovaries History of delivery Other postprocedural status Fatty liver Other chronic nonalcoholic liver disease Morbid obesity (HCC) Morbid obesity documented in this encounter [facility] note* Diagnosis Status post gastric bypass for obesity- Primary Bariatric surgery status Obesity, Class III, BMI 40-49.9 (morbid obesity) (HCC) Morbid obesity documented in this encounter [facility] note* Diagnosis History of Cathie-en-Y gastric bypass- Primary Bariatric surgery status documented in this encounter [facility] note* Diagnosis S/P gastric bypass- Primary Bariatric surgery status Impaired intestinal absorption Unspecified intestinal malabsorption Dietary counseling and surveillance Dietary surveillance and counseling documented in this encounter [facility] note* Diagnosis S/P gastric bypass- Primary Bariatric surgery status Dietary counseling and surveillance Dietary surveillance and counseling documented in this encounter [facility] note* Diagnosis S/P gastric bypass- Primary Bariatric surgery status documented in this encounter [facility] note* Diagnosis S/P gastric bypass- Primary Bariatric surgery status Impaired intestinal absorption Unspecified intestinal malabsorption Dietary counseling and surveillance Dietary surveillance and counseling documented in this encounter [facility] general Narrative - Reported* Type Description Date Medical History PCOS Medical History chronic depression Medical History anxiety Surgical History tonsillectomy and adenoidectomy x2 Surgical History wisdom teeth Surgical History cyst removal from left foot Surgical History nasal surgery Surgical History C section Hospitalization History see above [employer] Other [employer] for referral (narrative)* Outpatient Procedure (Routine) - Pending Review Specialty Diagnoses / Procedures Referred By Vipin kunz Referred To Contact [facility] Diagnoses Morbid obesity due to excess calories (HCC) Procedures EGD BARIATRIC ESOPHAGOGASTRODUODENOSC OPY TRANSORAL DIAGNOSTIC Jona Johns MD [address] [place] [address] [place] [address] Referral ID Status Reason Start Date Expiration Date Visits Requested Visits Authorized [id number] Pending Review Auto-Generat ed Referral 09/29/2021 09/15/2022 1 1 [facility] for referral (narrative)* Outpatient Procedure (Routine) - Authorized Specialty Diagnoses / Procedures Referred By Vipin kunz Referred To Contact [facility] Diagnoses Pre-op exam Procedures EGD DIAGNOSTIC ESOPHAGOGASTRODUODENOSC OPY TRANSORAL [place] [address] [place] [address] [facility] [place] [address] [place] [address] Referral ID Status Reason Start Date Expiration Date Visits Requested Visits Authorized [id number] Authorized Auto-Generat ed Referral 09/16/2021 09/16/2022 1 1 [facility] for referral (narrative)* Diagnostic Procedure Only (Routine) [...] TIME W/IMAGE LIMITED Danny Cristina DO [address] [place] [address] [facility] Imaging Referral ID Status Reason Start Date Expiration Date Visits Requested Visits Authorized [id number] Pending Review Auto-Generat ed Referral 11/07/2021 12/07/2022 [...] 12 LDS W/I&R Danny Cristina DO [address] [facility] [place] [id number] [facility] [place] [address] [place] [address] Referral ID Status Reason Start Date Expiration Date Visits Requested Visits Authorized [id number] Pending Review Auto-Generat ed Referral 11/07/2021 11/07/2022 1 1 [facility] for referral (narrative)* Outpatient Procedure (Routine) - Closed Specialty Diagnoses / Procedures Referred By [facility] Referred To Contact [facility] Diagnoses Pre-op exam Procedures EGD DIAGNOSTIC ESOPHAGOGASTRODUODENOSC OPY TRANSORAL [place] [address] [address] [place] [phone] [facility] [place] [address] [place] [id number] Referral ID Status Reason Start Date Expiration Date V isits Requested Visits Authorized [id number] Closed Auto-Generate d Referral 09/16/2021 09/16/2022 1 1 [facility] for referral (narrative)* Diagnostic Procedure Only (Routine) - Closed Specialty Diagnoses / Procedures [facility] To [facility] Diagnoses Class 3 severe obesity with body mass index (BMI) of 50.0 to 59.9 in adult, unspecified obesity type, unspecified whether serious comorbidity present (HCC) Procedures US ABD RT UPPER QUADRANT US ABDOMINAL REAL TIME W/IMAGE LIMITED Danny Cristina DO [address] [place] [address] [facility] Imaging Referral ID Status Reason Start Date Expiration Date V isits Requested Visits Authorized [id number] Closed Auto-Generate d Referral 11/07/2021 12/07/2022 1 1 [facility] for visit Narrative* Outpatient Procedure (Routine) - Closed Specialty Diagnoses / Procedures [facility] Referred To Contact [facility] Diagnoses Pre-op exam Procedures EGD DIAGNOSTIC ESOPHAGOGASTRODUODENOSC OPY TRANSORAL [place] [address] [place] [phone] [facility] [place] [address] [place] [id number] Referral ID Status Reason Start Date Expiration Date V isits Requested Visits Authorized [id number] Closed Auto-Generate d Referral 09/16/2021 09/16/2022 1 [...] ABDOMINAL REAL TIME W/IMAGE LIMITED Danny Cristina Rosalio, DO [address] [place] [address] [facility] Imaging Referral ID Status Reason Start Date Expiration Date V isits Requested Visits Authorized [id number] Closed Auto-Generate d Referral 11/07/2021 12/07/2022 1 1 [facility] Summary Purpose Family History No Family History Records FoundNo Family History Records FoundNo Family History Records FoundNo Family History Records FoundNo Family History Records FoundNo Family History Records FoundNo Family History Records FoundNo Family History Records Found Advance Directives No Advanced Directives Records FoundDocuments on File Type Date Recorded Patient Convolute Tube Winder Expl anation Advance Directive(s) 10/27/2021 6:10 PM Documents on File Type Date Recorded Patient Convolute Tube Winder Expl anation Advance Directive(s) 10/27/2021 6:10 PM Advance Directive Response Recorded Date/ Time Advance Directives No July 04, 2019 11:44am Chief Complaint and Reason for Visit Chief Complaint wellness Chief Complaint abd cramping, 8 wks preg Additional Source Comments INFORMATION SOURCE (unrecogn ized section and content) DATE CREATED AUTHOR 09/01/2021 [facility] DATE CREATED AUTHOR AUTHOR'S ORGANIZ ATION 11/13/2021 [facility] DATE CREATED AUTHOR AUTHOR'S ORGANIZ ATION 12/05/2021 [facility] DATE CREATED AUTHOR AUTHOR'S ORGANIZ ATION 01/08/2022 [facility] DATE CREATED AUTHOR AUTHOR'S ORGANIZ ATION 01/10/2022 [facility] DATE CREATED AUTHOR AUTHOR'S ORGANIZ ATION 02/13/2022 [facility] DATE CREATED AUTHOR AUTHOR'S ORGANIZ ATION 05/08/2023 [facility] DATE CREATED AUTHOR AUTHOR'S ORGANIZ ATION 12/07/2023 [facility]ists EPIC Source Comments (unrecognize d section and content) In the event this informatio n is protected by the Federal Confidentiality of Alcohol and Drug Abuse Patient Records regulations: The Federal rules restrict any use of the information to criminally investigate or prosecute any alcohol or drug abuse patient.[facility] HospitalIn the event this information is protected by the Federal Confidentiality of Alcohol and Drug Abuse Patient Records regulations: The Federal rules restrict any use of the information to criminally investigate or prosecute any alcohol or drug abuse patient.[facility] HospitalIn the event this information is protected by the Federal Confidentiality of Alcohol and Drug Abuse Patient Records regulations: The Federal rules restrict any use of the information to criminally investigate or prosecute any alcohol or drug abuse patient.[facility] HospitalIn the event this information is protected by the Federal Confidentiality of Alcohol and Drug Abuse Patient Records regulations: The Federal rules restrict any use of the information to criminally investigate or prosecute any alcohol or drug abuse patient.[facility] HospitalIn the event this information is protected by the Federal Confidentiality of Alcohol and Drug Abuse Patient Records regulations: The Federal rules restrict any use of the information to criminally investigate or prosecute any alcohol or drug abuse patient.[facility] HospitalIn the event this information is protected by the Federal Confidentiality of Alcohol and Drug Abuse Patient Records regulations: The Federal rules restrict any use of the information to criminally investigate or prosecute any alcohol or drug abuse patient.[facility] HospitalIn the event this information is protected by the Federal Confidentiality of Alcohol and Drug Abuse Patient Records regulations: The Federal rules restrict any use of the information to criminally investigate or prosecute any alcohol or drug abuse patient.[facility] HospitalIn the event this information is protected by the Federal Confidentiality of Alcohol and Drug Abuse Patient Records regulations: The Federal rules restrict any use of the information to criminally investigate or prosecute any alcohol or drug abuse patient.[facility] HospitalIn the event this information is protected by the Federal Confidentiality of Alcohol and Drug Abuse Patient Records regulations: The Federal rules restrict any use of the information to criminally investigate or prosecute any alcohol or drug abuse patient.[facility] HospitalIn the event this information is protected by the Federal Confidentiality of Alcohol and Drug Abuse Patient Records regulations: The Federal rules restrict any use of the information to criminally investigate or prosecute any alcohol or drug abuse patient.[facility] HospitalIn the event this information is protected by the Federal Confidentiality of Alcohol and Drug Abuse Patient Records regulations: The Federal rules restrict any use of the information to criminally investigate or prosecute any alcohol or drug abuse patient.[facility] HospitalIn the event this information is protected by the Federal Confidentiality of Alcohol and Drug Abuse Patient Records regulations: The Federal rules restrict any use of the information to criminally investigate or prosecute any alcohol or drug abuse patient.[facility] HospitalIn the event this information is protected by the Federal Confidentiality of Alcohol and Drug Abuse Patient Records regulations: The Federal rules restrict any use of the information to criminally investigate or prosecute any alcohol or drug abuse patient.[facility] HospitalIn the event this information is protected by the Federal Confidentiality of Alcohol and Drug Abuse Patient Records regulations: The Federal rules restrict any use of the information to criminally investigate or prosecute any alcohol or drug abuse patient.[facility] HospitalIn the event this information is protected by the Federal Confidentiality of Alcohol and Drug Abuse Patient Records regulations: The Federal rules restrict any use of the information to criminally investigate or prosecute any alcohol or drug abuse patient.[facility] HospitalIn the event this information is protected by the Federal Confidentiality of Alcohol and Drug Abuse Patient Records regulations: The Federal rules restrict any use of the information to criminally investigate or prosecute any alcohol or drug abuse patient.[facility] HospitalIn the event this information is protected by the Federal Confidentiality of Alcohol and Drug Abuse Patient Records regulations: The Federal rules restrict any use of the information to criminally investigate or prosecute any alcohol or drug abuse patient.[facility] HospitalIn the event this information is protected by the Federal Confidentiality of Alcohol and Drug Abuse Patient Records regulations: The Federal rules restrict any use of the information to criminally investigate or prosecute any alcohol or drug abuse patient.[facility] HospitalIn the event this information is protected by the Federal Confidentiality of Alcohol and Drug Abuse Patient Records regulations: The Federal rules restrict any use of the information to criminally investigate or prosecute any alcohol or drug abuse patient.[facility] HospitalIn the event this information is protected by the Federal Confidentiality of Alcohol and Drug Abuse Patient Records regulations: The Federal rules restrict any use of the information to criminally investigate or prosecute any alcohol or drug abuse patient.[facility] HospitalIn the event this information is protected by the Federal Confidentiality of Alcohol and Drug Abuse Patient Records regulations: The Federal rules restrict any use of the information to criminally investigate or prosecute any alcohol or drug abuse patient.[facility] HospitalIn the event this information is protected by the Federal Confidentiality of Alcohol and Drug Abuse Patient Records regulations: The Federal rules restrict any use of the information to criminally investigate or prosecute any alcohol or drug abuse patient.[facility] HospitalIn the event this information is protected by the Federal Confidentiality of Alcohol and Drug Abuse Patient Records regulations: The Federal rules restrict any use of the information to criminally investigate or prosecute any alcohol or drug abuse patient.[facility] HospitalIn the event this information is protected by the Federal Confidentiality of Alcohol and Drug Abuse Patient Records regulations: The Federal rules restrict any use of the information to criminally investigate or prosecute any alcohol or drug abuse patient.[facility] Reason for Visit (unrecogniz ed section [...] 12 LDS W/I&R Danny Cristina, DO [address] 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 Relationship Specialty Start Date End Date Pcp, No PCP - General 5/23/22 Utility Bag Assembler Relationship Specialty Start Date End Date Pcp, No PCP - General 10/27/21 Utility Bag Assembler Relationship Specialty Start Date End Date Pcp, No PCP - General 10/27/21 Utility Bag Assembler Relationship Specialty Start Date End Date Marco A Byrd MD [address] [place] [facility] [place] [address] PCP - General Family Practice 11/26/21 Utility Bag Assembler Relationship Specialty Start Date End Date Marco A Byrd MD [address] [place] [facility] [address] PCP - General Family Practice 11/26/21 Utility Bag Assembler Relationship Specialty Start Date End Date Marco A Byrd MD [address] [place] [facility] [address] PCP - General Family Practice 11/26/21 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 Bag Assembler Relationship Specialty Start Date End Date Marco A Byrd MD [address] [place] [facility] [address] PCP - General Family Practice 11/26/21 Utility Bag Assembler Relationship Specialty Start Date End Date Marco A Byrd MD [address] [place] [facility] [address] PCP - General Family Practice 11/26/21 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 Bag Assembler Relationship Specialty Start Date End Date Marco A Byrd MD [address] [place] [facility] [address] PCP - General Family Practice 11/26/21 Utility Bag Assembler Relationship Specialty Start Date End Date Marco A Byrd MD [address] [place] [facility] [id number] PCP - General Family Practice 11/26/21 Team Status: Inactive Member Role Status Dates PHYSICIAN NO FAMILY Primary Care Provider Active Danis Tubbs , DO [facility] Attending Provider Active [employer]er Relationship Specialty Start Date End Date Marco A Byrd MD [address] [place] [facility] [address] PCP - General Family Medicine 11/26/21 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 Relationship Specialty Start Date End Date Marco A Byrd MD [address] [place] [facility] [address] PCP - General Family Medicine 11/26/21 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 Bag Assembler Relationship Specialty Start Date End Date Marco A Byrd MD [address] [place] [facility] [address] PCP - General Family Medicine 11/26/21 Utility Bag Assembler Relationship Specialty Start Date End Date Marco A Byrd MD [address] [place] [facility] [address] PCP - General Family Medicine 11/26/21 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 Bag Assembler Relationship Specialty Start Date End Date Marco A Byrd MD [address] [place] [facility] [address] PCP - General Family Medicine 11/26/21 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 Bag Assembler Relationship Specialty Start Date End Date Marco A Byrd MD [address] [facility] [place] [place] [address] PCP - General Family Medicine 11/26/21 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 [facility] [employer] provides no warranty or guarantee of the accuracy or completeness of information in this document.
[2023-12-08 06:17] LABS: Basophils Absolute Auto 0.1 10^3/uL (0.0-0.1); Basophils Percent Auto 0.7 % (0.2-2.0); Eosinophils Absolute Auto 0.1 10^3/uL (0.0-0.7); Eosinophils Percent Auto 1.4 % (0.9-7.0); Hematocrit 39.2 % (36.0-48.0); Immature Granulocytes Abs Auto 0.04 10^3/uL (0.00-0.03); Immature Granulocytes Pct Auto 0.6 % (0.0-0.5); Lymphocytes Absolute Auto 3.1 10^3/uL (1.2-3.8); Lymphocytes Percent Auto 43.9 % (20.5-60.0); Mean Corpuscular HGB Conc 33.2 g/dL (29.9-35.2); Mean Corpuscular Hemoglobin 29.9 pg (26.7-34.0); Mean Corpuscular Volume 90.1 fL (81.0-99.0); Mean Platelet Volume 9.9 fL (9.5-13.5); Monocytes Absolute Auto 0.4 10^3/uL (0.3-0.8); Monocytes Percent Auto 5.4 % (1.7-12.0); Neutrophils Absolute Auto 3.4 10^3/uL (1.4-6.5); Platelet Count 260 10^3/uL (150-450); Red Blood Count 4.35 10^6/uL (4.20-5.40); Red Cell Distribution Width 12.2 % (11.0-15.0)
[2023-12-08] MEDS: FAMOTIDINE/PF 20 MG/2 ML VIAL IV (06:40)
[2023-12-08] MEDS: LACTATED RINGER'S SOLUTION 1,000 ML 50 ML IV ×2 (06:40→08:36)
[2023-12-08] MEDS: HYDROMORPHONE HCL 0.5 MG/0.5 ML SYRINGE IV (08:33)
--- NOTE | 2023-12-08 08:33 | PM.ONB ---
Brief Operative Note Date of procedure: 12/08/23 Pre-op diagnosis general: missed first trimester Post-op diagnosis: same as pre-op Procedure: NAME OF PROCEDURE: [D&C suction ] PROCEDURE: The patient was taken back to the OR where she was given general anesthesia without difficulty. She was then placed in dorsal lithotomy position, prepped and draped in the normal sterile fashion. A weighted speculum was placed in the patient's vagina and the anterior lip of the cervix was identified and grasped with a single-tooth tenaculum. The patient was then gently dilated using Hegar dilators after we had sounded roughly to 12 cm. The suction curette was then tested. The suction curette was then placed in the patient's uterus and products of conception were removed using an 10-E[place] suction curette. ?Excellent hemostasis was noted. The patient tolerated the procedure well. Sponge, lap, and needle counts were correct x 2. All instruments were then removed from the patient's vagina. The patient was taken to the Recovery Room in stable condition. ?? Anesthesia: ANNALISE Surgeon: Colby Peña Urine output (mL): 20 Pathology: other (poc) Condition: stable Disposition: PACU
--- NOTE | 2023-12-08 08:40 | PC.NURSE ---
C/o bilateral hip pain; peripad dry
--- NOTE | 2023-12-08 08:48 | PC.NURSE ---
Medicated with Dilaudid as ordered; peripad dry
--- NOTE | 2023-12-08 08:53 | PC.NURSE ---
States no pain relief; offered additional pain medication and refused at this time; c/o slight nausea; no retching or emesis; peripad dry
--- NOTE | 2023-12-08 09:11 | PC.NURSE ---
Peripad dry; states that hip pain is tolerable
--- NOTE | 2023-12-08 09:38 | PC.NURSE ---
No vaginal drainage; denies urge to void
--- NOTE | 2023-12-08 10:10 | PC.NURSE ---
Up to bathroom and voided without difficulty; small amount brown vaginal drainage noted
== END 2023-12-08 10:11 | disposition home or self-care (01) ==
PROVIDERS: Visit Provider Obstetrics & Gynecology
PROC: (CPT 01965; principal; 2023-12-08 07:30)
DX: O02.1 Missed abortion (principal); Z98.84 Bariatric surgery status
CPT/HCPCS: 01965; 59820; 36415; 85025; 88305; J1100; J1170; J1885; J2250; J2405; J2704; J3010

== ENCOUNTER 2023-12-22 15:47 | Outpatient (OUT) | payer OTHER, SELFPAY ==
[2023-12-22 16:26] LABS: Alanine Aminotransferase 46 U/L (14-59); Aspartate Amino Transferase 26 U/L (15-37)
[2023-12-22 16:36] LABS: HCG Quantitative 5 mIU/mL
== END 2023-12-22 15:48 | disposition home or self-care (01) ==
LOC: LAB 15:48
PROVIDERS: Visit Provider Obstetrics & Gynecology
DX: R74.8 Abnormal levels of other serum enzymes (principal); Z09 Encounter for follow-up examination after completed treatment for conditions other than malignant neoplasm
CPT/HCPCS: 36415; 84450; 84460; 84702

== ENCOUNTER 2023-12-29 14:21 | Outpatient (RCR) | payer OTHER, SELFPAY ==
--- OUTSIDE RECORDS SUMMARY | 2023-12-29 14:36 | XMS_ITS | CCD ---
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 [address] Performed By: #### 2 4323-8, 3016-3, 16692-5, 69436-7 #### [facility] CLIA [id number] [address] [place] [address] [facility] Iron binding capacity [Mass/Vol] 296 ug/dL Normal 232-386 [facility] Comment on above: Order Comment: Speci men Type: BLOOD SPECIMEN Ordering Facility: [facility] Address: [address] [place] [address] Performed By: #### 2 4323-8, 3016-3, 18511-4, 99535-4 #### [facility] CLIA [id number] [address] [place] [address] [facility] Iron/TIBC [Molar ratio] 23.3 % Normal 15.0-57.0 [facility] Comment on above: Order Comment: Speci men Type: BLOOD SPECIMEN Ordering Facility: [facility] Address: [address] [place] [address] Performed By: #### 2 4323-8, 3016-3, 57874-5, 08370-5 #### [facility] CLIA [id number] [address] [place] [id number] [place] [address] [place] Lipid 1996 panelon 2 Cholesterol [Mass/Vol] 229 mg/dL High <200 [facility] Comment on above: Order Comment: Speci men Type: BLOOD SPECIMEN Ordering Facility: [facility] Address: [address] [place] [address] Result Comment: <200 mg/dL, Desirable 200-239 mg/dL, Borderline high >239 mg/dL, High Performed By: #### 2 4323-8, 3016-3, 44077-6, 75176-3 #### [facility] CLIA [id number] [address] [place] [address] [facility] Cholesterol in HDL [Mass/Vol] 39 mg/dL Low >39 [facility] Comment on above: Order Comment: Kevini men Type: BLOOD SPECIMEN Ordering Facility: [facility] Address: [address] [place] [address] Result Comment: 40-5 9 mg/dL, Acceptable >59 mg/dL, High: Negative risk factor for coronary heart disease <40 mg/dL, Low: Positive risk factor for coronary heart disease Performed By: #### 2 4323-8, 3016-3, 76016-7, 20789-5 #### [facility] CLIA [id number] [address] [facility] [place] [address] [place] Cholesterol in LDL [Mass/Vol] 155 mg/dL High <100 [facility] Comment on above: Order Comment: Rangel zamora Type: BLOOD SPECIMEN Ordering Facility: [facility] Address: [address] [place] [address] Result Comment: <100 mg/dL, Optimal 100-129 mg/dL, Near optimal/above optimal 130-159 mg/dL, Borderline high 160-189 mg/dL, High >189 mg/dL, Very high Secondary prevention optimal LDL Cholesterol levels are recommended to be < 70 mg/dL Performed By: #### 2 4323-8, 3016-3, 44108-4, 74960-7 #### [facility] CLIA [id number] [address] [facility] [place], [place] [address] [place] [address] [place] Cholesterol in LDL/Cholesterol in HDL [Mass ratio] 3.97 {ratio} High <2.54 [facility] Comment on above: Order Comment: Rangel zamora Type: BLOOD SPECIMEN Ordering Facility: [facility] Address: [address] [place] [address] Result Comment: Refe tay: 1. National Cholesterol Education Program ATP III Guideline At-A-Glance Quick Desk Reference: National Heart, Lung, and Blood Baldwin. National Institutes of Health. 2001: NIH Publication No. 01-3305. 2. An International Atherosclerosis Society position paper: global recommendations for the management of dyslipidemia: executive summary, Atherosclerosis. 2014: 232(2):410-413. Performed By: #### 2 4323-8, 3016-3, 05384-9, 13215-8 #### [facility] CLIA [id number] [address] [facility] [address] [place] Cholesterol in VLDL [Mass/Vol] 35 mg/dL High <30 [facility] Comment on above: Order Comment: Rangel zamora Type: BLOOD SPECIMEN Ordering Facility: [facility] Address: [address] [place] [address] Performed By: #### 2 4323-8, 6-3, 98767-7, 48378-2 #### [facility] CLIA [id number] [address] [place] [address] [place] Cholesterol non HDL [Mass/Vol] 190 mg/dL High <130 [facility] Comment on above: Order Comment: Speci men Type: BLOOD SPECIMEN Ordering Facility: [facility] Address: [address] [place] [address] Result Comment: <130 mg/dL, Optimal 130-159 mg/dL, Near optimal/above optimal 160-189 mg/dL, Borderline high 190-219 mg/dL, High >219 mg/dL, Very high Secondary prevention optimal non HDL Cholesterol levels are recommended to be <100 mg/dL Performed By: #### 2 4323-8, 6-3, 47259-0, 62308-7 #### [facility] CLIA [id number] [address] [place] [address] [place] Cholesterol.total/Tia sterol in HDL [Mass ratio] 5.87 {ratio} High <5.10 [facility] Comment on above: Order Comment: Speci men Type: BLOOD SPECIMEN Ordering Facility: [facility] Address: [address] [place] [address] Performed By: #### 2 4323-8, 6-3, 69348-3, 29103-8 #### [facility] IA [id number] [address] [place] [address] [place] FASTING TIME 12 hrs Normal [facility] Comment on above: Order Comment: Speci men Type: BLOOD SPECIMEN Ordering Facility: [facility] Address: [address] [place] [address] Performed By: #### 2 4323-8, 6-3, 55972-8, 47376-9 #### [facility] CLIA [id number] [address] [place] [address] [place] Triglyceride [Mass/Vol] 173 mg/dL High <150 [facility] Comment on above: Order Comment: Speci men Type: BLOOD SPECIMEN Ordering Facility: [facility] Address: [address] [place] [address] Result Comment: <150 mg/dL, Normal 150-199 mg/dL, Borderline high 200-499 mg/dL, High >499 mg/dL, Very high Performed By: #### 2 4323-8, 3016-3, 11762-1, 01891-8 #### [facility] CLIA [id number] [address] [facility] [place] [address] [place] PTH-Intact SerPl-mCncon - Parathyrin.intact [Mass/Vol] 42 pg/mL Normal 15-65 [facility] Comment on above: Order Comment: Rangel zamora Type: BLOOD SPECIMEN Ordering Facility: [facility] Address: [address] [place] [address] Performed By: #### 2 731-8 #### [facility] CLIA [id number] [address] [place] [address] [place] TSH SerPl-aCncon 12-01-2021 TSH Qn 3.170 m[IU]/L Normal 0.270-4.200 [facility] Comment on above: Order Comment: Rangel zamora Type: BLOOD SPECIMEN Ordering Facility: [facility] Address: [address] [place] [address] Result Comment: If t he patient is , TSH reference range varies by gestational period: First Trimester (weeks 9-12): 0.180-2.990 mIU/L Second Trimester: 0.110-3.980 mIU/L Third Trimester: 0.480-4.710 mIU/L Franco Callejas et al. A Practical Approach for the Verifications and Determination of Site- and Trimester-Specific Reference Intervals for Thyroid Function tests in . Thyroid, 2019:29:3:412-420. Varun Blevins, et al. 2017 Guidelines of the [place] Thyroid Association for the Diagnosis and Management of Thyroid Disease during and the . Thyroid, 2017:27:3:315-389. Performed By: #### 2 4323-8, 3016-3, 36168-5, 34381-1 #### [facility] CLIA [id number] [address] [facility] [address] [place] VITAMIN B1 (THIAMINE), WHOLE BLOODon 12-01-2021 Thiamine (Bld) [Moles/Vol] 134.6 nmol/L Normal 84.3-213.3 [facility] Comment on above: Order Comment: Rangel zamora Type: BLOOD SPECIMEN Ordering Facility: [facility] Address: [address] [place], [place] [address] Result Comment: This assay measures the concentration of thiamine diphosphate (TDP), the primary active form of vitamin B1. Approximately 90 percent of vitamin B1 present in whole blood is TDP. Thiamine and thiamine monophosphate, which comprise the remaining 10 percent, are not measured. This test was developed and its performance characteristics determined by [facility] Pathology and Laboratory Medicine [place] ([facility]). It has not been cleared or approved by the FDA. [facility] is regulated under CLIA as qualified to perform high-complexity testing. This test is used for clinical purposes. It should not be regarded as investigational or for research. Performed By: #### B 1WB #### [facility] CLIA [id number] [address] [place] [address] [place] Vit B12 SerPl-mCncon 022 Cobalamin (Vitamin B12) [Mass/Vol] 304 pg/mL Normal 232-1,245 [facility] Comment on above: Order Comment: Rangel zamora Type: BLOOD SPECIMEN Ordering Facility: [facility] Address: [address] [place], [place] [address] Performed By: #### 2 4323-8, 3016-3, 00267-3, 75250-0 #### [facility] CLIA [id number] [address] [facility] [place] [id number] [place] No Panel Informationon 11-28 [facility] US ABD RIGHT UPPER QUADRANTo n 11-28-2021 [...] biliary ductal dilatation. The gallbladder is unremarkable. Utility Aide: ROSA Transcribe Date/Time: Nov 28 2021 2:20P Dictated by : CJ QUINTERO MD This examination was interpreted and the report reviewed and electronically signed by: CJ QUINTERO MD on Nov 28 2021 2:21PM EST [id number] Normal [facility] XR CHEST 2V FRONTAL/LATon XR CHEST 2V [...] tissues: Unremarkable. IMPRESSION: No acute radiographic abnormality. Utility Aide: ROSA Transcribe Date/Time: Nov 28 2021 1:32P Dictated by : KOMAL VINES MD This examination was interpreted and the report reviewed and electronically signed by: KOMAL VINES MD on Nov 28 2021 1:33PM EST [id number] [facility] ANES POSTPROC EVALon 022 ANES POSTPROC EVAL HNO ID: [id number] Author: Fannie Tanner MD Service: Anesthesiology Author Type: Physician Type: Anesthesia Postprocedure Evaluation Filed: 11/26/2021 3:12 PM Note Text: POST ANESTHESIA EVALUATION NOTE : 1990 Procedure Summary Date: 11/26/21 Room / Location: Procedures Anesthesia Start: 1315 Anesthesia Stop: 1328 Procedure: EGD DIAGNOSTIC Diagnosis: Pre-op exam (Heartburn) Scheduled Providers: Mulugeta Salmon MD; Fannie Tanner MD; Maria Alejandra Callejas APRN.LICENSED APPRAISER Responsible Provider: Fannie Tanner MD Anesthesia Type: [...] November 26, 2021 TIME: 3:12 PM CSN: [id number] [facility] ANES PRE-OPon 11-26-2021 ANES PRE-OP HNO ID: [id number] Author: Fannie Tanner MD Service: Anesthesiology Author Type: Physician Type: Anesthesia Preprocedure Evaluation Filed: 11/26/2021 12:27 PM Note Text: ANESTHESIOLOGY DAY OF SURGERY NOTE : 1990 Procedure Information Date/Time: 11/26/21 1245 Scheduled providers: Mulugeta Samlon MD; Fannie Tanner MD; Maria Alejandra Callejas APRN.LICENSED APPRAISER Procedure: EGD DIAGNOSTIC Location: Procedures Estimated body [...] November 26, 2021 TIME: 12:27 PM CSN: [id number] Normal [facility] EGD DIAGNOSTICon 11-26-2021 [facility] Upper GI endoscopyon 022 Upper GI endoscopy [facility] Gastrointestinal Endoscopy Patient Name: Funmilayo Conway Procedure Date: 11/26/2021 1:06 PM Date of : 1990 Admit Type: Outpatient Age: 31 Room: PROCEDURE A Gender: Female Note Status: Finalized Attending MD: Mulugeta Salmon MD Procedure: Upper GI endoscopy Indications: Heartburn Providers: Mulugeta Samlon MD Patient Profile: This is a 31 [...] by the physician, the nurse and the steelworker in the pre-procedure area in the endoscopy [...] previously scheduled. Procedure Code(s): --- Professional --- 87273, Esophagogastroduoden oscopy, flexible, transoral; diagnostic, including collection of specimen(s) by brushing or washing, when performed (separate procedure) Diagnosis Code(s): --- Professional --- K21.0, Gastro-esophageal reflux disease with esophagitis R12, Heartburn CPT copyright 2019 [place] [employer]. All rights reserved. The codes documented in this report are preliminary and upon hospital coder review may be revised to meet current compliance requirements. Attending Participation: I personally performed the entire procedure. Scope In: 1:21:30 PM Scope Out: 1:24:29 PM MD Mulugeta Tony MD 11/26/2021 1:27:19 PM This report has been signed electronically by Mulugeta Salmon MD Number of Addenda: 0 Note Initiated On: 11/26/2021 1:06 PM Estimated Blood Loss: Estimated blood loss: none. Normal [facility] HISTORY PHYSICALon HISTORY PHYSICAL HNO ID: [id number] Author: Maria T Lares APRN.SENIOR WIND TURBINE TECHNICIAN Service: ? Author Type: Nurse Practitioner Type: HANDP Filed: 11/12/2021 3:58 PM Note Text: HISTORY AND PHYSICAL EXAMINATION SERVICE DATE: 11/12/2021 SERVICE TIME: 3:26 PM PRIMARY CARE PHYSICIAN: No Pcp This is a virtual visit using [employer] video visit. It required patient-provider interaction for [...] fevers. Neurological: No history of TIA's, stroke, CHILD DAY CARE PROVIDER tumor, impaired sensorium, hemiplegia, paraplegia or quadraplegia. No neurological symptoms or problems. Respiratory: No history of current cough or dyspnea, or pneumonia in the past 6 weeks. No history of respiratory/pulmonar y symptoms or problems. Cardiovascular: No history of HTN requiring medication, no history of angina, CHF, RI, cardiac surgery or stents. Denies rest pain, [...] > 1 time per night or hematuria. 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 Normal [facility] COVID Quick Testingon 2021 Result Negative [facility] Other Quick Strepon 10-27-2021 S. pyogenes Org specific cx Ql (Throat) Negative [facility] [employer] Other Quick Strep [facility] Other Consent for Procedure/Surger yon 08-05-2021 Consent for Procedure/Surgery [id number] #1.00CD:127 [facility] Ambulatory Visit Summaryon 0 08-04-2021 [...] are no longer receiving treatment for. Normal [facility] Physician Referralon 022 Physician Referral [id number] #1.00CD:127 Normal [facility] Physician Referral [id number] #1.00CD:127 Normal [facility] Covid-19 PCR (CVDTB)on 06-08 SARS-CoV-2 (COVID-19) RNA JONH+probe Ql (Unsp spec) Not detected Normal NOT DETECTED [facility] Comment on above: Result Comment: This test is not yet approved or cleared by the [place] FDA. When there are no FDA-approved or cleared tests available, and other criteria are met, FDA can make tests available under an emergency access mechanism called an Emergency Use Authorization (EUA). The EUA for this test is supported by the [employer] Director of Health and Human Service's (HHS's) declaration [...] consistent with SARS-CoV-2. Performed By: #### [facility] #### [facility] [address] [place] [address] Dr. Kerri Roberto Covid-19 PCR (CVDTB)on SARS-CoV-2 (COVID-19) RNA JONH+probe Ql (Unsp spec) Not detected Normal NOT DETECTED [facility] Comment on above: Result Comment: This test is not yet approved or cleared by the [place] FDA. When there are no FDA-approved or cleared tests available, and other criteria are met, FDA can make tests available under an emergency access mechanism called an Emergency Use Authorization (EUA). The EUA for this test is supported by the [place] of Health and Human Service's (HHS's) declaration [...] consistent with SARS-CoV-2. Performed By: #### [facility] #### [facility] [address] [place] [address] Dr. Kerri Roberto Coding Summary.on 12-26-2020 Coding Summary. CD:[id number] Gh0bWw+PGhlYWQ+PE1FV PXwX41cmJAatZ0OP0pGX V9HRRODMJFNMS6TKE5wl XF6GPgcF5ImemUy FnmvjWHnQN35KBw6UGH5 bTuaCBtymL3cvVLvR4c2 QoKlGB84aH44PCcwPGGt NcV7ZwYfwgyedARh P1obEzDieHDaFtn+PHRh YmxlIHdpZHRoPScxMDAl VqBenLffWT0xAh0dUVIr LWNvbGxhcHNlOiBj i1cjBASvHSdhTQ0ytCuy B6JtuCT2LHJul5c9Kj34 dHI+ONKvYSK9lCgkNNck k635TkYqk2bgUSN0 dGHiUZyeTCJ4V03hx3A4 OYBqEGFwYZP4xSI2yR7h wNzewtucJ1WvhHOnWgY7 JCL9iZOxaY3otOme zmiwsR5eXbx+N66ECG7W DYUILC5ZTjj2I0GoQhsd dHI+AH59ZURfXS28xLKb wSCbu6qheWl9UuTc LUIbUYI5pRawKOzdy4Pe FOMiC89lhASrg5K1HWQg aBizoEOaDfYvvKM5qU1z AQhnmltnj6mpvyee Teshw0bxyd36gJ81K65b LYelXNEvFWP5IFToCNXt iComjm1osN3yYj0+IDxj y6ipj3dqpHu3HfEz FAPfreIbqHxyWQJ4r1Iu Lx16L3KwqDmtw8KgEuq7 ra33jOKiq6P3aLS0KDvo KEWiyL2vBFqxJeI4 IIVfPzSloE02bTLhLWks Cs0ejUxakOhqKG2pUVRv ungqBWFraZ6jIGRvqTWl nKdpKP7gRWVtdikf v935IhUzIKS9BODxjVBg L5QbdD2tBwWuRAOsAZIu M4HfeKVoYIgzM201HQnv LiV7KMJqbzRiY6Ub TLQryYfiTyP4e3T7Dt1Z k5GnhpalSWO5WZhhHEH8 WhVmYmLnUxF9S5RuUdg0 CCMtkRsiTG0mD8Lh ODCjgdlaiqedhOR4BVQg RCAadR25vZKbIWriXu4a s1F9j124PAKkPVDwkE91 Kr0taSyxMZXbkKWI zG0oxoslg0pzmchcNcXt GWCzVRk8RJg2YDIpwVtf WlJtINX6TxD0BXJ0qJQa nL6cmXomkixrsT8s Oyc+Q52keK9eLZN2JYU3 gfrjMWUkgdRoKL65JF50 G6DsCxzjtJSfvMR+PGRp cmGemMgfER9xUlHk f1clc1FrQQqqO5WhAZUq RSoqThd7UUUdFTZ3tBG3 jA7sOUTlHWnem3E7nJP5 V0SypgDrxb8bn2mh OTGrEKfyQ41rpQSwd5X9 JPMeiZS4CWYksTbcLpQe rW13Nby+RZJxcXuib2Hq Vbjhb2yyb8wssZc6 IjMwJSIgdmFsaWduPSJ0 c9PtEa19R72dHOrdCMKh RJFjMNLxLLFavKrihx4s iD5cZr9+PGNvbCB3 iNH7lV5gKDMzAdZ2UHzu N593VcKjkKJnWlmbx7xw q2peuIa7AeAeUHPqyyUl aWszDXQ2l9NeZk13 T25zZUoyJSJxNLGbKWUs ZAZbgRwrdt0hiB7xAj5+ FO7do5cfai74sR78wZM+ DTRaHPL2sGvfXWrb IWAlhS9eMFrpUmE4RZZh QxRwbL96rMHnWWglRh3n nYzbsTchOL1sUYZpnbkh r441QzQwn8dnYYNf yNLeGIzpJYG5W13ye5B2 MKUlJDTjEOE8oTS8qF2a bGlnbjogbGVmdDsgdmVy dRkjRKdxKRhwB246 IHRvcDsnPlBhdGllbnQg ZuIvJMz2F7IdVfl3FBOo lGneTG6tbHXlOQgvMk0s qMjclMjeUB1aAYJe kjqaq814GrJrs3vzSBEn jFZqEKnqUPN6X16bs5G3 MQRgBGDnWQB9mIY7uG2t bGlnbjogbGVmdDsg bgEzaWxnCMdmMLxsT939 IHRvcDsnPkJpcnRoIERh kDQ8EE69QU90zDBfd1N1 iWL9J6LqBYMxsnez fnybtMC9XMXoMUGezG18 Ev5ydYoeYf0iBFCzULD7 BDNzwSUkW8XbnS7nZfAa RBEfYJOyY4DfgSVl DPkqS566LLcjNdP3DHIk qiZrL1MaSDRduTncXtC5 f9T4Na2IL8J6GZ71ZA56 eEXkx0Y4bLG5J3By XFQftgwdiyxxpTI4WXNp UALlzK51Cn9xpZbnSo0r EUJoLCF6AQBhtTQxW9Nl fP9nMyKcJYUoZEPm V5IwiAXlVBmmT444DVly ZjF3UWEgdfHuD1RjJVVu lGmjPxM8t5D0Ja2NECg6 AO83PF16yHSsb0U2 cZO4Y0LcFQJnmtklpbwr wCS4ATTzMAHszJ34Jt8u rZepQr0oELUtQIP8QSMr bSHzI4XhqS1rWcLl HSBnVCLeZ3TgbROlWJjb S408XRnmPfW4KDRzhwSu X1UyALSqsMcoXvY3i3W6 Ja3BJXJhCJ30UFN5 zWI2YG34GE12H9LnPznc dGFibGU+PHRhYmxlIHdp ZHRoPScxMDAlJyBzdHls AO4xFb8zMVNxHZMv iDearMKzKgFib2pwZBGz REwxKE2bmBicM1VtpIT0 TNKum3f9Mo20S02iA7Dl dXA+PJOeqPS0uUC2 mM0eXnZpMoA2IXhyZ017 OkQlqTMuUzhqs2bpq8cj xNd6UzU8CEMxtjGzwEzi WWK3e0SxPd08H03q IHdpZHRoPSIxNSUiIHZh iBwxou7kvZ5fEs7+PGNv fWK6zWJ5yT6wRjFhDnR9 WSwuB283TlXlpUUj Nljgr4gac7sknBj8AnRz AUGtmmDpsCqrDOM5b1Il Bp58K8VbnNjuc6QgCgy4 it81hKUly0U8zJN0 N1CgNRAxulqunXWgwOjh ZX4bSYXfzaxhQXBqlB1w BJHlC0l6UvIcPnL7FCvx B3TtlyA7LZYmpCAn ICmeRWX1M85po7N7EYNj LCIuUUK6pPO8aM1spFhd bjogbGVmdDsgdmVydGlj MUnvDHscX317NMJc iNwqRCNvnB1qTAMcyBSa kFsuEX9hMGOpolxwGmgE WdQFPfhlDvDPLSPLEF56 XA67xTJuo6N7xAA0 I0WdMCCcnrqryxdsrJU5 ZJFyEVLjpV96oAWbBBas Oy3iz2E0i275OTRfQEFn aB88Dr4goRonPAEo tOLUoZ1jjnemv9vziqwu DdLdOUPwKTw5MSj4SKHz mDobNxNhDFZ1ZoJ4SQH6 nMElvY9gvAwztxrb jF2rFfs+MTEvMTQvMTk4 OTwvdGQ+CPNlAIJ5gHwz CUwyOWYprO4vMGQuG0e0 PaOnGqX5NSzaE5Tn AWMdodlzRu60tJ2xAiOe JqS5JUhoN9BemlP9OOCa gRVoUEleZXU4X08qm0U7 RJEmUBUcUFD7lVD1 tM0ixIsrpqzxeYWkiXgn baPogIgkOSmoFJfiX764 IHRvcDsnPjMxIFllYXJz PP12SO68yJNbq3M1 eHY4U2SbLFIbxwcxuzkc cEP5UFClEMSprW40mODj ITijRq4sc1N8h131ZAVr LWQvhQ18Vc2zpXtm OXGseQVJsR7buvloc1qz wkmbEjKpMVXsARi4MQx9 RFKyrClrNbYkKSS5EmM0 TZZ6bDDomV1wbRbw ecgbnL9qQio+RmVtYWxl FK07RT16pJZjv0A8fBO0 C1MdPGOociftvdyuyOD6 KJYjATZzpL75wPYx QYrnNf6xu9F2s682SYGs HHVceG50Hx2yqUuxSQNx wOTZlB3hqqsyt6jjkczg KyDyTVTeAXi7CUg1 NABmxKkrZtHnZAB7TrL5 CPK2kEQugB3qzPfgyeku qD1uGjd+D4UdQFT2UGZs v595N7EgZexjeVA+ CX62RNAdVD13uSOuqJPb y4aueWg3EsEoAWFkEWH1 nYshYBorb2MeMCPnD53r aXFih6G6GALzhMqu rULuTlFyqKQ7gU6kGRms vyjub7ybzlbrEtdfh3vl fr20nF62Q21wPEfeCPLc PSIzMCUiIHZhbGln zd7vcC4dLk6+PGNvbCB3 mHJ4iE6qThZrVpR0NDkw R679FxTpeUAaLkxes9nn g8tgsKx2UuOhZFCa veQioGdbQYU0k1ViSq17 S67lNLgbZONuJGOpSNDe HHXuzUwjww8gpD9aOj3+ BQ3yn5spio84aV23 dHI+BOKfOKA3tDjlONhm JDQzmF0mGThaAbH5ZRWl IbGalC55mSAfSFenRj2e rUoobFzuXH2iVEQr ttofc193OkCti8qwKJZd tFGfTYkdURM7H43ao1N7 JHWaKXRmHDR6dHU0uZ4r bGlnbjogbGVmdDsg loOmdOblAKxiQSauD740 EKJybEjpSjQhbHXnD5mr wyRSAA1zKkkpxUK+PHRk CWM4qDatRLbkBIRd mO7wMUIeF7f3LfFmEiD3 TXluG6NfgmB9FLQbcUWz CFEcxEAJbZ7bvbite7sd cjogIzAwMDAwMDt0 RFp8NZKnxXjyKdPsZCU0 TnK8SPR5kQYrvE7qsAry ucdndZ7yInu+RklOOjwv dGQ+IQQsCXF9sCmk GMpqVBWqrO6tDJRqA5m3 PhZrHlD2TStsX7HgzfC3 BLAszBFgRFKzzNFXhZ9g jcrvu1vsolynXhNc VHJyXOs4GZw4EZRafRdy RyBkLNK9VgK8KLL0fWPi eU8esUwrawxouJ0mZln+ TVJOOjwvdGQ+PHRk MTG9sWrzSCuzRPApdN5k XRQuL0r0WkHaAeZ6ZUsu K1JceuE7MOIjcOIrZUJd eTIZeK1qcaema3az keuqMeQhUVSbMOy3XMv7 KYMifGwaJxRaWUZ9OxE2 ZZL8eNNtoX2vqLsjmolg bN4dOsf+GQQ2HAW2 BH27PP76M5ZlEhyzbMWg bGU+PHRhYmxlIHdpZHRo RYafCAAuSoMsjNlwSN1k Vj4oLMRlEIJgxSrh cHNl (more content not included)... Normal [facility] Coding Summary.on 12-24-2020 Coding Summary. CD:[id number] Gh0bWw+PGhlYWQ+PE1FV WGdY61ysQPiiD1MR1pKQ J1GWDYBVXFPAP8XNI2vo NT7DGrxE9ShqgJs CkfpwZOaHY60NIq5WQB9 yPirZUwnpQ6ozUYaL1s8 DiVuLN16sR68PDebPFNo ItA8KxLrvrcuyZAk E5zaLwBcuUXnWvs+PHRh YmxlIHdpZHRoPScxMDAl ZwCaaSgtUW9rDo7oHUJo LWNvbGxhcHNlOiBj w4xdQSUyDHwlWX1tcMgl A4CdgKL9LRCgv8v7Bd95 dHI+SCLvWPK9kJnyANvw z660KxBwc9ocOSU6 tYOtFIwtTYF2M60ki6F6 XJKvRANlYMZ0lYW0gP3v nUwtlhkrG0VgaLNgKoI2 GER2uBEqmA8xjDpk nlaqqZ4rFgu+D27KAS2J JJQYVK1LDcn7G3HfUrch dHI+BZ72RQJuSS56kSNq qHGxb1gloRw3ZzWa GBDuTGA5qQapVVswv4Fx IXJtI07hrGFzh1P5YRVc qDwqcBIbOdSjbCR0zU5m IXiwkqrxp6idcejq Rkitt3kbxn64hA42I68p LRzvVRWaULM5SFZbLNSt hNsike6ioQ7kIi0+IDxj k6yxw7pgvVi8PpLi FYHnpePhjAnbAOO3l2Fs Wx90K1EewPwam5UgPpm0 ze13yDEfs7X3dKL6VAhd ZANppY6zVPceEmV5 DMUgIqGjzR45xKQpKJqn Sp8oxJzdxXhzQG9nZFWy tmmwLQFeqE0fQDXwkIOe pHoeJB6gLHTdtuig f970ScYoRID8YSWhrUEg P1XdbA9nFyDrNFVsJVRy E2SuiULlFPxhN518SVnv LnU0EIElxqPtS1Tk GMXlaUykWnG9o4A7Ex4D p9XswuqrPRV6MVffTPC0 ZwCfXyZhOnA4J6UmBtt2 CBJrfHdmFN7vW3Pj GCYxfcaugeedoEL5QWAs UNVpaK62xIZgRNxaPn3z r6U4d490XNLgFKKvrZ21 Kv8tyPzlVJXjmTTV eT5ueezgf0omqihnRdOg DLJeNZg4KCc6RMGrjWao QkPcIRN8WnE6DFT4aHCc fZ5poMpjcivorH0u Oyc+D45hzE1tMFG7XAU1 tgobFIXtbgWeJV91KM44 G9FgKgmcuQKawJR+PGRp ghBegMvcDO0jGpNn a9oxi6NrWZykL7TqRDRv ZByfIlv9HGMeDZO1uUF9 wU7yJCRbSAkyn2C8rTG2 F1XkbkBefz8cu0vu ZKSbGSyaU44ccLCma3Z8 GOJawVA1AYZrgHaqDhDl yI68Dgi+EZIlqSlfo2Dp Xtjtm5hqi9orrBk1 IjMwJSIgdmFsaWduPSJ0 x5WaRu39C20sRGcuMRAi OLEwXECxFSQfzLdmkw2n xH1rYo4+PGNvbCB3 pTH0tY6kTHJiQtY8YQoo O320TaHccSKqUrype1ku q8jgjZk6SbQmZPZuraWn wCeoYTR6i3JlWl26 S84lKTdjGNGpEITiQXFn IEDyeNwkxj4dfC0eXp6+ DM1pm4bsie42bQ34mXG+ IRZnIYK4bZdiEDro SNGzzH6tVMfdCmJ8MLWy UvBxdH04mOIvHRjvDx3v gDdlzOvrWS4rZYHxsamk k099WaPlw3fxIGAv uAXmNGxvNCQ0N11ry6E4 QXXoICCvWXO5wSZ3qL1n bGlnbjogbGVmdDsgdmVy oOfkPAgoZQjvH573 IHRvcDsnPlBhdGllbnQg RgAiUCv2Z6EyYru8HSFg wXwhKY0xaCUuBJphKt9h lTbrbXtnMT7aXXFa aapqt506WhRyb8piMNEk fZXdWAppHTQ8S29dl0Y0 TETjOZUgAID7gWV7pC0h bGlnbjogbGVmdDsg ejUfaFbaVYglVNcaY995 IHRvcDsnPkJpcnRoIERh nKB4XC73DF02fFNpn9X9 xFT7R1FfEVJxakqv wjdytVP6RVDjOSIcvE15 Lo1tkUocXy0oCLWgPMU9 RLMqqELuU2JxuW7iSkIx ZJYqYLMhX5VviTCh YBkpR629EScjXmU5JDNt cnUfC7YhDRUioVuyTgZ9 o9D1Xd7KZ9K2TM61CU81 kBYcq3W3tTO2N9Br ANVayuoeqaytdOL7GKIr MWUrxW33Rb7yeMvfJp7o ZMXpWAX5QOQnrXBkG3Ge xS9rFwHvNNJaJMPt I7HtoSJeCRemB678RSag VgY9RXJpdhOmZ9HtIZUx qNgkFeK3i8Q7Rx6YFBa9 EX97HL89aPNjt9V7 uLI8V7JwTXIlubmopysk cHA2CKJlSZPmyR73Yo5i hZinDl9uDMMcJML5MDLm rQVfM2ZbfX0wIpZc UDDlSXBnG0VcrMTvNLem V246FSxlQuV3EABefdHi R9VhKBHzzZnyNaJ2j1W9 Mj2DGCYsZC02RUJ6 hZP1SH61VP00O6VmPpch dGFibGU+PHRhYmxlIHdp ZHRoPScxMDAlJyBzdHls JG3xRb8sYPQgVKBn bEnrhPMkUjLyp0eiKHRd DRuwKU0zjOfhP9DzvEZ4 ORGag3s3Vw95H28vL2Ar dXA+GAMybUI9eSJ8 rK0pMbKjWsX6FRmvD521 XpYhjYRmBhzqf9tlk3re rFs6TcT0PBZhdrEofDoy VTN3i1CfYz95B02g IHdpZHRoPSIxNSUiIHZh gTyctg7veA4pVp0+PGNv tBP9pGZ3tN5rSrHcExJ4 GZnbL635DfGatOSa Orqur5tws0unoYq2IgEk HZVombMoeKmlLOY4x5Gt Sc09X7XybYylh8FfWtm4 ke03fQIjg6Q2eIL9 Q8FnBRFqwsvydKRppAvu EK7tXYTshwhtRQHtdO7r DOQpS4z7YtNvHwZ5RShm D0NygvJ8EJPmkHHv SOtvIVX0U40yb1K6KQCk AETqDGV8vPJ6eA2wnYza bjogbGVmdDsgdmVydGlj GTffZMqqU884PXBe oTezALOmjC4pABXinSIy iPqcJJ2uCAXxcbacLbaQ OcZBLocyHgSIFYDQZC50 AH53oAAul0E2eWQ6 S3ByIPOjovywvupsfQW9 GJAuJGUqyJ61mNRbMJdn Gf1rf8E5g814JRVrVTCa lA72Gf7nqXxmXCHm zRKMjL3qzpzor3lhtsmg AnUfJIRxWEk0PIb0RLUu eNgbOoOqQOA8LcB5XOT1 uSUjnH0bkClqxgpt uO3jPar+MTEvMTQvMTk4 OTwvdGQ+HCVrMMP8kYlz CXfyMAPxwE1qRXHiY5j6 HuLwDfG4LRxwZ4Sj VFMrrqvuIt90oP9zOyXz VgF0DLxfO3MwnwW3HNGs yRHiBRpmOYG1W38ey3E7 WWOlQGAlRKV1jXG4 vS1txHckyvfliFQqoVkv ubWegDjcXUjrUIesD004 IHRvcDsnPjMxIFllYXJz BV62BY13oQLup2U3 fPL6W4JbMPGeecgrdnle zXM8MSWjSZQyfB35bQXm MFuyHm2wz1G4z347EINi HSPqjK18Ff5mpYyp AIKmiTCIcR9dzgcza9tv rdlvXhUaQAVvXVi0DFr0 FXOslAsbJuXmMZO7BpP7 DJT2dZYbzY5aiKxz uerznU7qZrn+RmVtYWxl UX39RX51yMPnz1C4dPI2 L9XcAPFzejvsudbinEO4 ACSwAIWjnX76rCEi MIkeDv1je6D9o490VDTx BEKouT84Np4htZtmZJYg gFONaT1bdnpko3gueegm GwEqGYEzUNu4FAy3 KJLjgKjzEjLqBET2OaZ8 BWG6bGNvdH1dvOongyge fG8iXwp+AE8pgrnwpjT4 GU86BG03Q1XoOlmj dGFibGU+PHRhYmxlIHdp ZHRoPScxMDAlJyBzdHls TW2wGt1jDKXrXTEfhGoo kBFgJaViu0aoBOUo RYwgVN6fkRfcQ0ZpbLY5 JYCes0g1Vg85J67cP3Nq dXA+MKWnxTX3dQB1uM6a CyQwAsI3DIqzE890 DoLjiDCxIgvwi3bma7ks hPq3ZwFlGOKwzhRkhMzg LOQ6q8YeUx58M36sELla ZHRoPSIyMCUiIHZh aCnjbq6nfS1cDs0+PGNv uWU0vFR4tP2jOxUmYmV7 XAnaX425GxSjqRMvWmer D53yW7VfhPV+PHRy Njg3SZEthTmtOD8rmNDf DSewRu3uZNE3MsCpTpLj EQdbK0TfZALfhyotziqc dHG6PWZhAQUzwQ68 Fh0xrLkqXk2fUIVrVET0 GZXovGCgB1FosP9sVuHp NDNhGMAtN4ArsRTtPRsv J235GZirZhJ5ZZKf yhKbA3EeVTHbxRfiJnU1 f7L7Or9XpHbxyREwLB3o TwOsSAt1B6RwEwm9JTIs sCadJQ5meONaFApf Xb1sbTvlzPpaJK1hOAKx dyznc692FkMof1ksNXRe fEOxWVhkFOW1M78qi5W3 KMFgGXMmRRY1hKG0 cI4fgLzfnyqfkKFfcLef mpOoqWemRKfpWPpmZ652 XTZtiYojXgRBKcm0R3Lt Abm5QHVmcXodFG5u zLAuCYgrRk2nwDpbfJwn BK0nQKDtjpxxw191KqYv b5ocJEAuvYOyVPaiXBH8 Y30nd9I8QFKrFOXy FYD6aKX2nJ3vjOjusuqj bGVmdDsgdmVydGljYWwt FFygZ485BDMttEwjMo8M Mdh0B1DhSbi5TAXq xEymLK3nzAZvBFpuOj5h gNzqoOvgHS8aTXGxmtxn z848RbAvd8hnRTDkhJUu BWrjUAP4E55bj1K1 VWEsPFSwYZP2gQC8hD2c bGlnbjogbGVmdDsgdmVy vKidBQzgMCfqA579OXSw cDsnPlBheWVyOjwv dGQ+CY00qr54Q9UvIxep Bic0IJZcFJP4yEZ3bK7u TTVoVYblq1Q0hLU0G7Xu ncCoto6uc1usKLXb ZTog (more content not included)... Normal [facility] C Urineon 12-20-2020 Bacteria identified Cx Nom [...] Locations R1: This test was performed at: [facility], [address] [place] [address], [address] , [place], Normal [facility] Comment on above: Performed By: #### 1 [id number] ####[facility] [address] [place] [address] Discharge Instructionson Discharge Instructions [id number] 107 [id number] 1#1.00CD:127 Normal [facility] ED Note-Physicianon 12-21-19 21 ED Note-Physician care transferred at change of shift. CT pending. CT returned without acute findings. Patient accepted for admission for pain control Impression: flank pain Normal [facility] Comment on above: Result Comment: Elec tronically Signed By: Yevgeniy JOYCE, Salvador\.br\Date and Time Signed: 12/19/20 23:07 EDT Inpatient Clinical Summaryon 12-20-2020 Inpatient Clinical Summary [address] [address] Clinical Summary Person Information: Name: FUNMILAYO CONWAY Age: 30 Years : 1990 Sex: Female PCP: Maki VELA PA-C Marital Status: Phone: [phone] Race: White Ethnicity: Non- or Language: Belgian Visit Id: Visit Reason: Vomiting; Back pain; Headache; VOMITTING; HEADACHE Speciality: Acuity: Enc Type: Observation Med Service: Medical Arrival: 12/19/2020 16:38:33 Discharge: Dispo Type: Admitted as IP to this [facility] Address: [address] [place] [id number] Provider Notes: Diagnosis: 1:Myalgia; 2:Headache; 3:Left flank [...] Follow up: With: Address: When: [place] [address] Business (1) 12/26/2020 8:30 AM Patient Education Information: Viral Illness, Adult Normal [facility] Inpatient Patient Summaryon 12-20-2020 Inpatient Patient Summary [address] [address] Patient Discharge Instructions PERSON INFORMATION [...] hydrated with water Take tylenol prn for [facility] Primary Care Physician to provide the following pending test results: Follow up: With: Address: When: Maki VELA [address] [place] [address] Business (1) 12/26/2020 8:30 AM In [...] at bedtime as needed Insomnia. Pharmacy Information: [facility] [place] Comment: PATIENT EDUCATION INFORMATION Instructions: Viral Illness, [...] infected with (more content not included)... Normal [facility] Procalcitoninon 12-20-2020 Procalcitonin .05 ng/mL Normal .00-.[facility] Comment on above: Result Comment: <0.5 [...] to 24 hours. Performed By: #### 2 [id number] #### [facility] [address] [place] [address] XR Chest Single Viewon 12-20 XR Chest [...] M.D. Transcribed by: LILY Technologist: GLEN Normal [facility] Auto Diffon 12-19-2020 Basophils/100 WBC (Bld) 0.7 % Normal 0.0-2.0 F [facility] Comment on above: Order Comment: Order Added by Discern Expert. Performed By: #### 2 728669, 1485850, 6361320, 79239056, 9530821, 7524164 #### [facility] [address] [place] [address] Basophils/Leukocytes Auto (Bld) [Pure # fraction] 0.1 E9/L Normal 0.0-0.2 [facility] Comment on above: Order Comment: Order Added by Discern Expert. Performed By: #### 2 328629, 1353181, 5010682, 73600503, 1955421, 0268851 #### [facility] [address] [place] [address] Eosinophils/100 WBC (Bld) 0.6 % Normal 0.0-8.0 [facility] Comment on above: Order Comment: Order Added by Discern Expert. Performed By: #### 2 985489, 6023261, 2535155, 07505539, 1640995, 2880414 #### [facility] [address] [place] [address] Eosinophils/Leukocytes Auto (Bld) [Pure # fraction] 0.1 E9/L Normal 0.0-0.5 [facility] Comment on above: Order Comment: Order Added by Andrea Expert. Performed By: #### 2 178889, 6879486, 6744414, 13436422, 9328485, 0885726 #### [facility] [address] [place] [address] Lymphocytes/100 WBC (Bld) 29.4 % Normal 14.0-50.0 [facility] Comment on above: Order Comment: Order Added by Andrea Expert. Performed By: #### 2 247498, 4646004, 8409269, 80228818, 7808657, 7108667 #### [facility] [address] [place] [address] Lymphocytes/Leukocytes Auto (Bld) [Pure # fraction] 2.5 E9/L Normal 1.0-4.0 [facility] Comment on above: Order Comment: Order Added by Andrea Expert. Performed By: #### 2 166883, 3483066, 4641955, 35871368, 2824951, 6810879 #### [facility] [address] [place] [address] Monocytes/100 WBC (Bld) 7.8 % Normal 4.0-14.0 [facility] Comment on above: Order Comment: Order Added by Andrea Expert. Performed By: #### 2 297517, 4829836, 9982662, 64553738, 9735353, 6171720 #### [facility] [address] [place] [address] Monocytes/Leukocytes Auto (Bld) [Pure # fraction] 0.7 E9/L Normal 0.2-1.0 [facility] Comment on above: Order Comment: Order Added by Discern Expert. Performed By: #### 2 032620, 3484807, 5582823, 00433155, 4673624, 9892404 #### [facility] [address] [place] [address] Neutrophils/100 WBC (Bld) 61.5 % Normal 36.0-75.0 [facility] Comment on above: Order Comment: Order Added by Discern Expert. Performed By: #### 2 256277, 2678337, 9442567, 30010333, 3249410, 5726128 #### [facility] [address] [place] [address] Neutrophils/Leukocytes Auto (Bld) [Pure # fraction] 5.1 E9/L Normal 2.0-7.5 [facility] Comment on above: Order Comment: Order Added by Discern Expert. Performed By: #### 2 105599, 8531011, 1053404, 64431017, 5379054, 9016190 #### [facility] [address] [place] [address] CBC w/ Auto Diffon Erythrocyte distribution width (RBC) [Ratio] 12.7 % Normal 10.9-14.2 [facility] Comment on above: Performed By: #### 2 255684, 3443392, 2755086, 74813312, 2854448, 1042257 #### [facility] [address] [place] [address] Hematocrit (Bld) [Volume fraction] 41.2 % Normal 34.0-46.0 [facility] Comment on above: Performed By: #### 2 585152, 8946433, 3710565, 46352983, 8371020, 7889916 #### [facility] [address] [place] [address] Hemoglobin (Bld) [Mass/Vol] 13.8 g/dL Normal 12.0-16.0 [facility] Comment on above: Performed By: #### 2 594356, 3635333, 3599785, 32420221, 7976693, 0772521 #### [facility] [address] [place] [address] MCH (RBC) [Entitic mass] 29.6 pg Normal 27.0-34.0 [facility] Comment on above: Performed By: #### 2 809637, 6308052, 2819687, 47757166, 1332271, 9840394 #### [facility] [address] [place] [address] MCHC (RBC) [Mass/Vol] 33.5 g/dL Normal 31.4-36.0 [facility] Comment on above: Performed By: #### 2 099318, 9865991, 1486236, 33766485, 0422368, 2156539 #### [facility] [address] [place] [address] MCV (RBC) [Entitic vol] 88.3 fL Normal 80.0-100.0 F [facility] Comment on above: Performed By: #### 2 964027, 1135858, 9868058, 53284053, 0679372, 3196310 #### [facility] [address] [place] [address] Platelet mean volume (Bld) [Entitic vol] 8.3 fL Normal 6.4-10.8 [facility] Comment on above: Performed By: #### 2 967595, 6293070, 8018211, 87882711, 2477674, 5735250 #### [facility] [address] [place] [address] Platelets (Bld) [#/Vol] 188.0 E9/L Normal 150.0-500.0 [facility] Comment on above: Performed By: #### 2 766717, 0447298, 5009592, 49789211, 0019316, 6005209 #### [facility] [address] [place] [address] RBC (Bld) [#/Vol] 4.7 E12/L Normal 4.3-5.9 [facility] Comment on above: Performed By: #### 2 958619, 6027040, 2134872, 43669164, 0824988, 4326660 #### [facility] [address] [place] [address] WBC corrected for nucl RBC Auto (Bld) [#/Vol] 8.4 E9/L Normal 4.0-11.0 [facility] Comment on above: Performed By: #### 2 267055, 4330599, 8523390, 51099390, 2046642, 3006475 #### [facility] [address] [place] [address] CMPon 12-19-2020 Albumin [Mass/Vol] 4.2 g/dL Normal 3.3-5.0 [facility] Comment on above: Performed By: #### 2 084241, 2247369, 0687249, 77571704, 5004234, 6994733 ####[facility] [address] [place] [address] Albumin/Globulin (S) [Mass conc ratio] 1.0 Low 1.1-2.2 [facility] Comment on above: Performed By: #### 2 022282, 0567986, 2437468, 50710911, 4703428, 6633444 ####[facility] [address] [place] [address] ALP [Catalytic activity/Vol] 44 Int._Unit/L Normal 21-98 [facility] Comment on above: Performed By: #### 2 637728, 5625057, 7523217, 45030899, 6402962, 0523674 ####[facility] [address] [place] [address] ALT No additional P-5'-P [Catalytic activity/Vol] 22 Int._Unit/L Normal 6-46 [facility] Comment on above: Performed By: #### 2 240745, 0299699, 7147695, 52755695, 1234048, 9760499 ####[facility] [address] [place] [address] AST [Catalytic activity/Vol] 18 Int._Unit/L Normal 5-43 [facility] Comment on above: Performed By: #### 2 107371, 8872960, 8197568, 23625437, 1351559, 0396940 ####[facility] [address] [place] [address] Bilirubin [Mass/Vol] 0.8 mg/dL Normal 0.0-1.1 [facility] Comment on above: Performed By: #### 2 876114, 2480131, 2514607, 56421134, 2806692, 4756278 ####[facility] [address] [place] [address] Creatinine [Mass/Vol] 0.5 mg/dL Normal 0.5-1.3 [facility] Comment on above: Performed By: #### 2 083539, 2731029, 9048953, 57136899, 7545207, 9285710 ####[facility] [address] [place] [address] Globulin (S) [Mass/Vol] 4.0 g/dL Normal 1.4-4.0 [facility] Comment on above: Performed By: #### 2 497271, 6294209, 6738946, 12477745, 4070871, 6184134 ####[facility] [address] [place] [address] Protein [Mass/Vol] 8.2 g/dL High 6.0-7.8 [facility] Comment on above: Performed By: #### 2 600456, 4013002, 1234664, 18063285, 5765219, 3302567 ####[facility] [address] [place] [address] Urea nitrogen [Mass/Vol] 6 mg/dL Normal 5-21 [facility] Comment on above: Performed By: #### 2 424725, 8949873, 5661424, 80535277, 4527852, 5209022 ####[facility] [address] [place] [address] Urea nitrogen/Creatinine [Mass ratio] 12 No Units Normal 10-20 [facility] Comment on above: Performed By: #### 2 758282, 4254992, 1102499, 08358333, 7033935, 4771932 ####[facility] [address] [place] [address] Anion gap [Moles/Vol] 14 mmol/L Normal 6-16 [facility] Comment on above: Performed By: #### 2 277986, 9694396, 4355659, 74963418, 7629126, 7147513 ####[facility] [address] [place] [address] Calcium [Mass/Vol] 8.9 mg/dL Normal 8.9-11.1 [facility] Comment on above: Performed By: #### 2 123396, 0577634, 9481572, 45831909, 2437823, 0913522 ####[facility] [address] [place] [address] Chloride [Moles/Vol] 103 mmol/L Normal 101-111 [facility] Comment on above: Performed By: #### 2 706948, 1015358, 2489267, 09215016, 9016903, 7877409 ####[facility] [address] [place] [address] CO2 [Moles/Vol] 25 mmol/L Normal 21-31 [facility] Comment on above: Performed By: #### 2 313502, 7898950, 4724479, 05932227, 5418077, 4747688 ####[facility] [address] [place] [address] Glucose [Mass/Vol] 90 mg/dL Normal 55-199 [facility] Comment on above: Result Comment: If t his glucose result represents a fasting glucose, interpretation should refer to the following reference range: 55-99 mg/dL Performed By: #### 2 856255, 6903429, 5637826, 42160321, 5953559, 4667508 ####[facility] [address] [place] [address] Potassium [Moles/Vol] 3.8 mmol/L Normal 3.5-5.3 [facility] Comment on above: Performed By: #### 2 842434, 1338423, 6009447, 71189364, 0346083, 7682001 ####[facility] [address] [place] [address] Sodium [Moles/Vol] 138 mmol/L Normal 135-145 [facility] Comment on above: Performed By: #### 2 681436, 6396358, 5785218, 71413052, 2347236, 9779239 ####[facility] [address] [place] [address] CT Abdomen/Pelvis w/o Contra ston 12-19-2020 CT [...] and spleen are not included within the nlyvw-nz-sydw of this renal stone protocol study. The [...] Oral contrast amount in ml's: 0 Normal [facility] Consent for Treatmenton 12-05 Consent for Treatment [id number] #1.00CD:127 Normal [facility] ED Clinical Summaryon 2020 ED Clinical Summary [place] [id number] ED Clinical Summary Person Information Name: FUNMILAYO CONWAY Mariah/[facility] Age: 30 Years : 1990 Sex: Female Language: Belgian PCP: Maki VELA PA-C Marital Status: Phone: [phone] Visit Id: Visit Reason: Vomiting; Back pain; Headache; NAUSEA AND VOMITTING SENT BY PCP Speciality: Acuity: 3 Enc Type: Emergency Med Service: Emergency Arrival: 12/19/2020 16:38:33 Discharge: LOS: 000 03:58 Checkin: 12/19/2020 16:38:33 Checkout: 12/19/2020 20:36:01 Dispo Type: Admitted as IP to this [facility] EVENTS: Event Name Event Status [...] 12/19/2020 20:36:01 12/19/2020 20:36:01 12/19/2020 20:36:01 ADDRESS: [address] [place] [address] [place] [id number] [facility] DOC NOTES: MEDICAL INFORMATION: Prescriptions Given: Medications to Continue with No Changes Other Medications cephalexin (Keflex 500 mg Cap) 1 Capsules By Mouth every 6 hours for 7 Days. Refills: 0. ondansetron (ondansetron 4 mg Dis Tab) 1 Tablets By Mouth every 6 hours as needed Nausea/Vomiting. Refills: 0. PATIENT EDUCATION INFORMATION: Instructions: Follow up: DIAGNOSIS: Normal [facility] ED Note-Physicianon 12-20-19 ED Note-Physician Basic Information [...] (12/19/20 17:3 (more content not included)... Normal [facility] Comment on above: Result Comment: Elec tronically Signed By: Shiva Ferreira DO\.br\Date and Time Signed: 12/19/20 19:19 EDT ED Patient Education Noteon 12-19-2020 ED Patient Education Note Normal [facility] ED Patient Summaryon 021 ED Patient Summary [place] [id number] Patient Discharge Instructions Person Information Name: FUNMILAYO CONWAY Age: 30 Years Arrival Date: 12/19/2020 16:38:33 Discharge Diagnosis: Primary Care Physician: Maki VELA PA-C Provider Information Primary Provider: Shiva Ferreira DO Advanced Rapid Transit Operator:None The exam and treatment you received in the Emergency Department were for an urgent problem and are not intended as complete care. It is important that you follow up with a doctor, nurse practitioner, or physician?s certified registered dental assistant for ongoing care. If your symptoms [...] opioids can be used to help relieve ucvgmequ-wn-oitmwh pain and are often prescribed following a [...] struggling with addiction, tell your health child daycare worker and ask for guidance or call [facility]?S National Helpline at 6-022-345-PDZM. x Source: US Department of Health and Human Services/Center for Disease Control & Prevention [facility] Medications Given: Medication Dose Route Sodium Chloride 0.9% 1000.00 m (more content not included)... Normal [facility] Lactic Acidon 12-19-2020 Lactate [Mass/Vol] 0.8 mmol/L Normal 0.5-2.2 [facility] Comment on above: Performed By: #### 2 [id number] #### [facility] [address] [place] [address] Lactate [Mass/Vol] 0.9 mmol/L Normal 0.5-2.2 [facility] Comment on above: Performed By: #### 2 [id number], 5875057, 2751332, [id number], 7184916, 4939856 #### [facility] [address] [place] [address] Physician Orderon 12-19-2020 Physician Order [id number]#1.00CD:127 Normal [facility] Troponinon 12-19-2020 Troponin I.cardiac [Mass/Vol] 2.30 pg/mL Low 10.10-27.10 [facility] Comment on above: Result Comment: The 95% CI (Confidence Interval) PPV (Positive Predictive Value) for myocardial infarction in females is 38 pg/mL, in males 51 pg/mL. The results should be used in conjunction with clinical conditions of myocardial infarction. (Access High Sensitivity Troponin I Instructions For Use, Darling Kandace, January 2018) Performed By: #### 2 [id number], 5474068, 7518029, [id number], 6611457, 4116848 ####[facility] [address] [place] [address] UA With Cult Reflexon 2020 Bacteria LM Ql (Urine sed) TRACE Normal Trace [facility] Comment on above: Performed By: #### 1 [id number] ####[facility] [address] [place] [address] Bilirubin Ql (U) Negative Normal Negative [facility] Comment on above: Performed By: #### 1 0865440 ####[address] [address] Clarity (U) CLEAR Normal Clear [facility] Comment on above: Performed By: #### 1 [id number] ####[facility] [address] [place] [address] Color (U) YELLOW Normal Yellow [facility] Comment on above: Performed By: #### 1 [id number] ####[facility] [address] [place] [address] Epithelial cells.squamous LM.HPF (Urine sed) [#/Area] 3-4 Normal 0-2 [facility] Comment on above: Performed By: #### 1 [id number] ####[facility] [address] [place] [address] Glucose Test strip (U) [Mass/Vol] Negative Normal Negative [facility] Comment on above: Performed By: #### 1 [id number] ####[address] [address] Hemoglobin Ql (U) Negative Normal Negative [facility] Comment on above: Performed By: #### 1 4048681 ####[facility] [address] [place] [address] Ketones (U) [Mass/Vol] 1+ Abnormal Negative [facility] Comment on above: Performed By: #### 1 1349122 ####[facility] [address] [place] [address] [place].plasma/[place]. RBC (Bld) [Mass ratio] 0-3 Normal 0-3 [facility] Comment on above: Performed By: #### 1 0003920 ####[address] [address] Mucus Ql (Urine sed) 1+ Normal [facility] Comment on above: Performed By: #### 1 0880722 ####[address] [address] Nitrite Ql (U) Negative Normal Negative [facility] Comment on above: Performed By: #### 1 1256824 ####[address] [address] pH (U) 6.0 [pH] Invalid Interpretation Code 5.0-9.0 [facility] Comment on above: Performed By: #### 1 7745449 ####[address] [address] Protein (U) [Mass/Vol] TRACE Abnormal Negative [facility] Comment on above: Performed By: #### 1 0517585 ####[address] [address] Specific gravity (U) [Rel density] 1.025 Invalid Interpretation Code 1.005-1.030 [facility] Comment on above: Performed By: #### 1 0485457 ####[address] [address] Type of Urine collection method Clean Catch Normal [facility] Comment on above: Performed By: #### 1 6447187 ####[address] [address] Urobilinogen Qn (U) 0.2 {Tg'U}/dL Normal 0.0-1.0 [facility] Comment on above: Performed By: #### 1 7430791 ####[facility] [address] [place] [address] WBC Auto Ql (U) Negative Normal Negative [facility] Comment on above: Performed By: #### 1 6907597 ####[facility] [address] [place] [address] WBC LM.HPF (Urine sed) [#/Area] 0-5 Normal 0-5 [facility] Comment on above: Performed By: #### 1 [id number] ####[facility] [address] [place] [address] eGFRon 12-19-2020 GFR/1.73 sq M.predicted among blacks MDRD (S/P/Bld) [Vol rate/Area] mL/min/{1.73_m2} Normal >=59 [facility] Comment on above: Order Comment: Order added by Discern Expert. Result Comment: eGFR is race adjusted. AA=. Performed By: #### 2 197900, 1001306, 3692897, 30649501, 1373904, 0001676 ####[facility] [address] [place] [address] GFR/1.73 sq M.predicted among non-blacks MDRD (S/P/Bld) [Vol rate/Area] mL/min/{1.73_m2} Normal >=59 [facility] Comment on above: Order Comment: Order added by Discern Expert. Result Comment: Crusher Setter roshan kidney disease could be indicated at eGFR's of less than 60 mL/min/1.73m2. Kidney failure is indicated at less than 15 mL/min/1.73m2. Performed By: #### 2 107382, 2998249, 0743201, 48983689, 2497608, 3517216 ####[place] [address] [place] [address] Consent for Treatmenton 12-05 Consent for Treatment [id number] #1.00CD:127 Normal [facility] Discharge Instructionson Discharge Instructions [id number]#1.00CD:127 Normal [facility] ED Clinical Summaryon 2020 ED Clinical Summary [place] [id number] ED Clinical Summary Person Information Name: FUNMILAYO CONWAY [place] Age: 30 Years : 1990 Sex: Female Language: Belgian PCP: Maki VELA PA-C Marital Status: Phone: [phone] Visit Id: Visit Reason: Back pain; Headache; [...] 12/18/2020 03:52:27 12/18/2020 03:52:27 12/18/2020 03:52:27 ADDRESS: [address] [place] [id number] PHYS DOC NOTES: MEDICAL INFORMATION: Prescriptions Given: New Medications [facility]/pharmacy #[id number], [address], [place] [id number], [phone] cephalexin (Keflex 500 mg Cap) 1 Capsules By Mouth every 6 hours for 7 Days. Refills: 0. Medications to Continue with No Changes Other Medications ondansetron (ondansetron 4 mg Dis Tab) 1 Tablets By Mouth every 6 hours as needed Nausea/Vomiting. Refills: 0. PATIENT EDUCATION INFORMATION: Instructions: Pyelonephritis, Adult Follow up: With: Address: When: Maki VELA [address] [place] [address] Business (1) In 3 days DIAGNOSIS: Acute pyelonephritis Normal [facility] ED Note-Nursingon 12-18-2020 ED Note-Nursing pt ambulatory to with steady gait w/o assistance. urine sample obtained. md at bedside for eval; awaiting further orders Normal [facility] ED Note-Physicianon 12-19-19 ED Note-Physician Basic Information [...] day(s), # 28 cap(s), Refills(s) 0, Pharmacy: [facility]/pharmacy #[id number], 165, cm, 12/18/20 1:04:00 EDT, Height/Length [...] Information Maki VELA In 3 days [address] [place], [place] [address] Business (1) Additional Instructions: Patient Education Pyelonephritis, [...] Family History (more content not included)... Normal [facility] Comment on above: Result Comment: Elec tronically Signed By: Darien Fischer DO.br\Date and Time Signed: 12/18/20 04:05 EDT ED [...] you start to feel better. ? Take zqkx-exn-awoumvh and prescription medicines only as told by [...] 05/24/2006 Document Revised: 03/28/2019 Document Reviewed: 03/28/2019 [employer] Patient Education ? 2019 [employer]gress[employer]. Normal [facility] ED Patient Summaryon 021 ED Patient Summary [address] [address] Patient Discharge Instructions Person Information Name: FUNMILAYO CONWAY Age: 30 Years Arrival Date: 12/18/2020 00:55:40 Discharge Diagnosis: Acute pyelonephritis Primary Care Physician: DANE COFFMAN, Maki Vazquez Provider Information Primary Provider: Darien Fischer DO Advanced Rapid Transit Operator:None The exam and treatment you received in the Emergency Department were for an urgent problem and are not intended as complete care. It is important that you follow up with a doctor, nurse practitioner, or physician?s certified registered dental assistant for ongoing care. If your symptoms become worse or you do not improve as expected and you are unable to reach your usual health care provider, you should return to the Emergency Department. We are available 24 hours a day. FUNMILAYO CONWAY has been given the following list of patient education materials, prescriptions and follow-up instructions: Follow-up Instructions: With: Address: When: Maki DANE [address] [place] [phone] Business (1) In 3 days In the event that this physician does not participate in your insurance network, please consult with your insurance company to find a nearby participating provider. Patient Education Materials: Pyelonephritis, Adult A MESSAGE TO ALL PATIENTS REGARDING OPIOIDS PRESCRIPTION OPIOIDS: WHAT YOU NEED TO KNOW Prescription opioids can be used to help relieve ksquuaqd-jy-mqztto pain and are often prescribed following a [...] struggling with addiction, tell your health child daycare worker and ask for guidance or call [employer]?S National Helpline at 0-845-248-PAHD. v Source: US Department of Health and [facility] (more content not included)... Normal [facility] U BetaHcg Qualon 12-18-2020 HCG.beta subunit (U) [Moles/Vol] Negative Normal [facility] Comment on above: Performed By: #### 2 [id number] ####[facility] [address] [address] UA With Cult Reflexon 2020 Bacteria LM Ql (Urine sed) 3+ /HPF Abnormal Trace [facility] Comment on above: Performed By: #### 1 4575515, 8372613 ####[facility] [address] [place] [address] Bilirubin Ql (U) Negative Normal Negative [facility] Comment on above: Performed By: #### 1 5254511, 4968309 ####[facility] [address] [place] [address] Clarity (U) SL CLOUDY Abnormal Clear [facility] Comment on above: Performed By: #### 1 6138718, 3305876 ####[address] [address] Color (U) YELLOW Normal Yellow [facility] Comment on above: Performed By: #### 1 3839453, 1970999 ####[address] [place] [address] Crystals LM Ql (Urine sed) Present Normal [facility] Comment on above: Performed By: #### 1 6567016, 3318928 ####[facility] [address] [place] [address] Epithelial cells.squamous LM.HPF (Urine sed) [#/Area] 0-2 Normal 0-2 [facility] Comment on above: Performed By: #### 1 9295778, 2331989 ####[facility] [address] [place] [address] Glucose Test strip (U) [Mass/Vol] Negative Normal Negative [facility] Comment on above: Performed By: #### 1 7455962, 1448762 ####[facility] [address] [facility] [place] [address] Hemoglobin Ql (U) Negative Normal Negative [facility] Comment on above: Performed By: #### 1 8265663, 1012031 ####[facility] [address] [facility] [place] [address] Ketones (U) [Mass/Vol] Negative Normal Negative [facility] Comment on above: Performed By: #### 1 2711743, 5786870 ####[facility] [address] [place] [address] [place].plasma/[place]. RBC (Bld) [Mass ratio] 0-3 Normal 0-3 [facility] Comment on above: Performed By: #### 1 4161537, 9614080 ####[facility] [address] [place] [address] Mucus Ql (Urine sed) 1+ Normal [facility] Comment on above: Performed By: #### 1 0235045, 2656579 ####[address] [address] Nitrite Ql (U) Negative Normal Negative [facility] Comment on above: Performed By: #### 1 5617985, 1999218 ####[address] [address] pH (U) 7.0 [pH] Invalid Interpretation Code 5.0-9.0 [facility] Comment on above: Performed By: #### 1 4015781, 7637112 ####[address] [address] Protein (U) [Mass/Vol] Negative Normal Negative [facility] Comment on above: Performed By: #### 1 4049904, 6871307 ####[address] [address] Specific gravity (U) [Rel density] 1.020 Invalid Interpretation Code 1.005-1.030 [facility] Comment on above: Performed By: #### 1 [id number], 9045999 ####[address] [address] Type of Urine collection method Clean Catch Normal [facility] Comment on above: Performed By: #### 1 3453026, 0287656 ####[address] [address] Urobilinogen Qn (U) 0.2 {Tg'U}/dL Normal 0.0-1.0 [facility] Comment on above: Performed By: #### 1 6394992, 5487476 ####[facility] [address] [place] [address] WBC Auto Ql (U) Negative Normal Negative [facility] Comment on above: Performed By: #### 1 9385109, 4403897 ####[facility] [address] [place] [address] WBC LM.HPF (Urine sed) [#/Area] 0-5 Normal 0-5 [facility] Comment on above: Performed By: #### 1 [id number], 2295443 ####[facility] [address] [place] [address] Vital Signs Date Time Vital Sign Value Performing Clinician Facility 12-01-2023 10:47-0400 Body temperature 98.5 [degF] PHYSICIAN NO [facility] 12-01-2023 10:47-0400 Diastolic blood pressure 71 mm[Hg] PHYSICIAN NO [facility] 12-01-2023 10:47-0400 Heart rate 72 /min PHYSICIAN NO [facility] 12-01-2023 10:47-0400 Respiratory rate 18 /min PHYSICIAN NO [facility] 12-01-2023 10:47-0400 SaO2% (BldA) [Mass fraction] 97 % PHYSICIAN NO [facility] 12-01-2023 10:47-0400 Systolic blood pressure 121 mm[Hg] PHYSICIAN NO [facility] 12-01-2023 08:54-0400 Body height 167.64 cm PHYSICIAN NO [facility] 12-01-2023 08:54-0400 Body weight 100.3 kg PHYSICIAN NO [facility] 05-05-2023 15:54-0500 Body height 165.[address] Work Phone: [facility] 04-13-2023 10:23-0500 Body height 165.1 cm Jona Bermudez MD Work Phone: [facility] 04-13-2023 10:23-0500 Body weight 94.35 kg Jona Bermudez MD Work Phone: [facility] 12-30-2022 13:46-0400 Body height 165.[address] Work Phone: [facility] 12-30-2022 13:46-0400 Body weight 96.[address] Work Phone: [facility] 06-09-2022 09:24-0500 Body height 165.[address] Work Phone: [facility] 06-09-2022 09:24-0500 Body weight 118.[address] Work Phone: [facility] 03-18-2022 13:36-0400 Body height 165.1 cm Pacc 5 Work Phone: [facility] 03-18-2022 13:36-0400 Body temperature 97.39 [degF] Pacc 5 Work Phone: [facility] 03-18-2022 13:36-0400 Body weight 143.02 kg Pacc 5 Work Phone: [facility] 03-18-2022 13:36-0400 Diastolic blood pressure 81 mm[Hg] Pacc 5 Work Phone: [facility] 03-18-2022 13:36-0400 Heart rate 88 /min Pac 5 Work Phone: [facility] 03-18-2022 13:36-0400 SaO2% (BldA) [Mass fraction] 97 % Pacc 5 Work Phone: [facility] 03-18-2022 13:36-0400 Systolic blood pressure 133 mm[Hg] Pacc 5 Work Phone: [facility] 03-18-2022 11:10-0400 Body height 165.5 cm Jona Bermudez MD Work Phone: [facility] 03-18-2022 11:10-0400 Body weight 141.98 kg Jona Bermudez MD Work Phone: [facility] 03-18-2022 11:10-0400 Diastolic blood pressure 76 mm[Hg] Jona Bermudez MD Work Phone: [facility] 03-18-2022 11:10-0400 Heart rate 78 /min Jona Bermudez MD Work Phone: [facility] 03-18-2022 11:10-0400 Systolic blood pressure 134 mm[Hg] Jona Bermudez MD Work Phone: [facility] 02-08-2022 15:57-0400 Body height 165.1 cm Marco A Hoy Other Phone: [facility] Other Phone (unformatted): [phone] 02-08-2022 15:57-0400 Body temperature 97.88 [degF] Marco A Hoy Other Phone: [facility] Other Phone (unformatted): [phone] 02-08-2022 15:57-0400 Body weight 150 kg Marco A Hoy Other Phone: [facility] Other Phone (unformatted): [phone] 02-08-2022 15:57-0400 Diastolic blood pressure 78 mm[Hg] Marco A Hoy Other Phone: [facility] Other Phone (unformatted): [phone] 02-08-2022 15:57-0400 Heart rate 77 /min Marco A Hoy Other Phone: [facility] Other Phone (unformatted): [phone] 02-08-2022 15:57-0400 Respiratory rate 20 /min Marco A Hoy Other Phone: [facility] Other Phone (unformatted): [phone] 02-08-2022 15:57-0400 SaO2% (BldA) [Mass fraction] 97 % Marco A Hoy Other Phone: [facility] Other Phone (unformatted): [phone] 02-08-2022 15:57-0400 Systolic blood pressure 143 mm[Hg] Marco A Byrd Other Phone: [facility] Other Phone (unformatted): [phone] 12-01-2021 09:31-0400 Body height 167.6 cm Davida Vincent PRATT [facility] 12-01-2021 09:31-0400 Body weight 149.69 kg Davida Juarezdeisihalleargenis PRATT [facility] 11-26-2021 13:50-0400 Diastolic blood pressure 84 mm[Hg] Mulugeta Salmon MD Work Phone: [facility] 11-26-2021 13:50-0400 Heart rate 76 /min Mulugeta Salmon MD Work Phone: [facility] 11-26-2021 13:50-0400 Respiratory rate 15 /min Mulugeta Salmon MD Work Phone: [facility] 11-26-2021 13:50-0400 SaO2% (BldA) [Mass fraction] 95 % Mulugeta Salmon MD Work Phone: [facility] 11-26-2021 13:50-0400 Systolic blood pressure 127 mm[Hg] Mulugeta Salmon MD Work Phone: [facility] 11-26-2021 13:30-0400 Body temperature 97 [degF] Mulugeta Salmon MD Work Phone: [facility] 11-12-2021 15:29-0400 Body height 167.6 cm [facility] 11-12-2021 15:29-0400 Body weight 148.96 kg [facility] 11-07-2021 09:23-0400 Body weight 148.78 kg Danny Cristina DO Work Phone: [facility] 10-27-2021 17:25-0400 Body height 165.1 cm Myron Jacome Other [facility] Other 10-27-2021 17:25-0400 Body mass index (BMI) [Ratio] 55.74 kg/m2 Myron Jacome Other [facility] Other 10-27-2021 17:25-0400 Body temperature 97.8 [degF] Myron Jacome Other [facility] Other 10-27-2021 17:25-0400 Body weight 151.96 kg Myron Jacome Other [facility] Other 10-27-2021 17:25-0400 SaO2% (BldA) [Mass fraction] 97 % Myron Jacome Other [facility] Other 09-15-2021 14:13-0400 Body height 167.2 cm Jona Bermudez MD Work Phone: [facility] 09-15-2021 14:13-0400 Body weight 152.86 kg Jona Bermudez MD Work Phone: [facility] 09-15-2021 14:13-0400 Diastolic blood pressure 86 mm[Hg] Jona Bermudez MD Work Phone: [facility] 09-15-2021 14:13-0400 Heart rate 92 /min Jona Bermudez MD Work Phone: [facility] 09-15-2021 14:13-0400 Systolic blood pressure 140 mm[Hg] Jona Bermudez MD Work Phone: [facility] Encounters Encounter Date Encounter Type Care Provider Facility Start: 12-20-2023 End: 12-20-2023 ambulatory COLBY PEÑA Not Available Start: 12-08-2023 End: 12-08-2023 ambulatory PHYSICIAN [facility] Work Phone: Start: 12-08-2023 End: 12-08-2023 Departed Referred PHYSICIAN [facility] Start: 12-06-2023 End: 12-06-2023 ambulatory COLBY MARIANA Not Available Start: 12-01-2023 End: 12-01-2023 Emergency department patient visit PHYSICIAN KORY [facility] Work Phone: Start: 11-25-2023 End: 11-25-2023 ambulatory COLBY MARIANA Not Available Start: 08-24-2023 End: 08-24-2023 ambulatory COLBY MARIANA Not Available Start: 06-22-2023 End: 06-22-2023 ambulatory COLBY MARIANA Not Available Start: 05-05-2023 End: 05-05-[address] Work Phone: General Surgery Comment on above: S/P gastric bypass ( Primary Dx); Impaired intestinal absorption; Dietary counseling and surveillance Start: 05-05-2023 End: 05-05-2023 Telemedicine consultation with patient Bita Lopezn RD Work Phone: [facility] Start: 04-13-2023 End: 04-13-2023 ambulatory MARCO A BYRD Facility:[facility] Start: 04-13-2023 End: 04-13-2023 ambulatory Jona Bermudez MD Work Phone: General Surgery Comment on above: S/P gastric bypass ( Primary Dx) Start: 04-13-2023 End: 04-13-2023 Telemedicine consultation with patient Jona Bermudez MD Work Phone: [facility] Start: 12-30-2022 End: 12-30-[address] Work Phone: General Surgery Comment on above: S/P gastric bypass ( Primary Dx); Dietary counseling and surveillance Start: 12-30-2022 End: 12-30-2022 Telemedicine consultation with patient Bita Lopezn RD Work Phone: [facility] Start: 09-09-2022 End: 09-09-2022 ambulatory BITA YARITZA Facility:[facility] Start: 06-09-2022 End: 06-09-2022 ambulatory BITA YARITZA Facility:[facility] Start: 06-09-2022 End: 06-09-[address] Work Phone: General Surgery Comment on above: S/P gastric bypass ( Primary Dx); Impaired intestinal absorption; Dietary counseling and surveillance Start: 06-09-2022 End: 06-09-2022 Telemedicine consultation with patient Bita Vigil RD Work Phone: [facility] Start: 05-15-2022 End: 05-18-2022 ambulatory JONA BERMUDEZ Facility:[facility] Start: 05-07-2022 End: 05-07-2022 ambulatory Jona Bermudez MD Work Phone: General Surgery Comment on above: History of Cathie-en-Y gastric bypass (Primary Dx) Start: 05-07-2022 End: 05-07-2022 Telemedicine consultation with patient Jona Bermudez MD Work Phone: [facility] Start: 04-08-2022 End: 04-08-2022 ambulatory Fellow Scott Main Work Phone: General Surgery Comment on above: Status post gastric bypass for obesity (Primary Dx); Obesity, Class III, BMI 40-49.9 (morbid obesity) (HCC) Start: 04-08-2022 End: 04-08-2022 Telemedicine consultation with patient Fellow Scott Main Work Phone: [facility] Start: 03-18-2022 End: 03-18-2022 Admission to establishment Pacc Main 5 Work Phone: [facility] Start: 03-18-2022 End: 03-18-2022 ambulatory Pacc [...] department patient visit [id number] Other Phone (unformatted): [phone] Start: 01-07-2022 End: 01-07-2022 ambulatory DANUTA MACARIO Facility:[facility] Start: 01-05-2022 End: 01-05-2022 Departed Referred PHYSICIAN KORY [facility] Start: 12-24-2021 Admission to [facility] center Jona Bermudez MD Work Phone: General Surgery Comment on above: 02/01/2022 (Pseudo parish rgery date) Start: 12-24-2021 ambulatory Jona Bermudez MD Work Phone: [facility] Start: 12-23-2021 ambulatory Danny Morton n DO Work Phone: General Surgery Comment on above: Question regarding C OMP METABOLIC PANEL Start: 12-23-2021 Telephone encounter Danny Cristina DO Work Phone: General Surgery Comment on above: Results Start: 12-03-2021 End: 12-03-2021 Patient encounter procedure Nurse Card [facility] Work Phone: Cardiology Comment on above: Class 3 severe obesi ty with body mass index (BMI) of 50.0 to 59.9 in adult, unspecified obesity type, unspecified whether serious comorbidity present (HCC) Start: 12-01-2021 End: 12-01-[address] General Surgery Comment on above: Patient Education; R eassessment Start: 11-28-2021 End: 11-28-2021 Subsequent hospital visit by physician [facility] Work Phone: [facility] Radiology Ultrasound Comment on above: Class 3 severe obesi ty with body mass index (BMI) of 50.0 to 59.9 in adult, unspecified obesity type, unspecified whether serious comorbidity present (HCC) [E66.01, Z68.43] Start: 11-28-2021 End: 11-28-2021 Subsequent hospital visit by physician Jorje [facility] Work Phone: [facility] Radiology General Comment on above: Class 3 [...] Start: 11-12-2021 End: 11-12-2021 Admission to establishment [facility] Start: 11-12-2021 End: 11-12-2021 Preprocedural examination done [facility] Pre Anesthesia Start: 11-12-2021 End: 11-12-2021 ambulatory Maria T Lares APRN.SENIOR WIND TURBINE TECHNICIAN Work Phone: Pre Anesthesia Comment on above: Pre-op Instructions Preoperative examina tion (Primary Dx); Morbidly obese (HCC); Fatty liver; Anxiety and depression Start: 11-12-2021 E-mail encounter fro m caregiver Maria T Lares APRN.SENIOR WIND TURBINE TECHNICIAN Work Phone: [facility] Start: 11-07-2021 End: 11-07-2021 ambulatory Danny Cristina DO Work Phone: General Surgery Comment on above: Class 3 severe obesi ty with body mass index (BMI) of 50.0 to 59.9 in adult, unspecified obesity type, unspecified whether serious comorbidity present (HCC) (Primary Dx); PCOS (polycystic ovarian syndrome) Start: 11-07-2021 End: 11-07-2021 Telemedicine consultation with patient Danny Cristina DO Work Phone: [facility] Start: 10-27-2021 End: 10-27-2021 ambulatory Myron Jacome Other [place] [facility] Other Start: 10-27-2021 Office outpatient vi sit 15 minutes Myron Jacome [facility] Start: 10-01-[address] ELMIRA SNOW [...] real time w/image limited Danny Santamaria Cetagnes DO Work Phone: Start: 11-28-2021 Radiologic exam [...] DTaP,Tdap,Td Vaccine (3 - Td or Tdap) [facility] Start: 12-01-2023 [facility] Start: 02-05-2023 Covid-19 Vaccine () Covid-19 Vaccine () [facility] Start: 02-05-2023 Influenza vaccination [facility] Start: 10-23-2022 Adult depression screening assessment DEPRESSION SCREENING [facility] Start: 02-05-2022 Influenza vaccination [facility] Start: 11-07-2021 End: 01-07-2022 CBC W Auto Differential panel - Blood CBC + DIFF Lab Routine Class 3 severe obesity with body mass index (BMI) of 50.0 to 59.9 in adult, unspecified obesity type, unspecified whether serious comorbidity present (HCC) Expected: 11/07/2021, Expires: 01/07/2022 [facility] Work Phone: Comment on above: Expected: 11/07/2021 , Expires: 01/07/2022 Start: 11-07-2021 End: 01-07-2022 Comprehensive metabolic 2000 panel - Serum or Plasma COMP METABOLIC PANEL Lab Routine Class 3 severe obesity with body mass index (BMI) of 50.0 to 59.9 in adult, unspecified obesity type, unspecified whether serious comorbidity present (HCC) Expected: 11/07/2021, Expires: 01/07/2022 [facility] Work Phone: Comment on above: Expected: 11/07/2021 , Expires: 01/07/2022 Start: 11-07-2021 End: 01-07-2022 FERRITIN BLD FERRITIN BLD Lab Routine Class 3 severe obesity with body mass index (BMI) of 50.0 to 59.9 in adult, unspecified obesity type, unspecified whether serious comorbidity present (HCC) Expected: 11/07/2021, Expires: 01/07/2022 [facility] Work Phone: Comment on above: Expected: 11/07/2021 , Expires: 01/07/2022 Start: 11-07-2021 End: 01-07-2022 Folate [Mass/volume] in Serum or Plasma FOLATE SERUM Lab Routine Class 3 severe obesity with body mass index (BMI) of 50.0 to 59.9 in adult, unspecified obesity type, unspecified whether serious comorbidity present (HCC) Expected: 11/07/2021, Expires: 01/07/2022 [facility] Work Phone: Comment on above: Expected: 11/07/2021 , Expires: 01/07/2022 Start: 11-07-2021 End: 01-07-2022 Hemoglobin A1c/Hemoglobin.total in Blood HGB A1C Lab Routine PCOS (polycystic ovarian syndrome) Expected: 11/07/2021, Expires: 01/07/2022 [facility] Work Phone: Comment on above: Expected: 11/07/2021 , Expires: 01/07/2022 Start: 11-07-2021 End: 01-07-2022 IRON + TIBC IRON + TIBC Lab Routine Class 3 severe obesity with body mass index (BMI) of 50.0 to 59.9 in adult, unspecified obesity type, unspecified whether serious comorbidity present (HCC) Expected: 11/07/2021, Expires: 01/07/2022 [facility] Work Phone: Comment on above: Expected: 11/07/2021 , Expires: 01/07/2022 Start: 11-07-2021 End: 01-07-2022 LIPID PANEL BASIC LIPID PANEL BASIC Lab Routine Class 3 severe obesity with body mass index (BMI) of 50.0 to 59.9 in adult, unspecified obesity type, unspecified whether serious comorbidity present (HCC) Expected: 11/07/2021, Expires: 01/07/2022 [facility] Work Phone: Comment on above: Expected: 11/07/2021 , Expires: 01/07/2022 Start: 11-07-2021 End: 01-07-2022 PTH INTACT BLD PTH INTACT BLD Lab Routine Class 3 severe obesity with body mass index (BMI) of 50.0 to 59.9 in adult, unspecified obesity type, unspecified whether serious comorbidity present (HCC) Expected: 11/07/2021, Expires: 01/07/2022 [facility] Work Phone: Comment on above: Expected: 11/07/2021 , Expires: 01/07/2022 Start: 11-07-2021 End: 01-07-2022 Thyrotropin [Units/volume] in Serum or Plasma TSH BLD Lab Routine Class 3 severe obesity with body mass index (BMI) of 50.0 to 59.9 in adult, unspecified obesity type, unspecified whether serious comorbidity present (HCC) Expected: 11/07/2021, Expires: 01/07/2022 [facility] Work Phone: Comment on above: Expected: 11/07/2021 , Expires: 01/07/2022 Start: 11-07-2021 End: 01-07-2022 VITAMIN B1 (THIAMINE), WHOLE BLOOD VITAMIN B1 (THIAMINE), WHOLE BLOOD Lab Routine Class 3 severe obesity with body mass index (BMI) of 50.0 to 59.9 in adult, unspecified obesity type, unspecified whether serious comorbidity present (HCC) Expected: 11/07/2021, Expires: 01/07/2022 [facility] Work Phone: Comment on above: Expected: 11/07/2021 , Expires: 01/07/2022 Start: 11-07-2021 End: 01-07-2022 VITAMIN B12 BLOOD VITAMIN B12 BLOOD Lab Routine Class 3 severe obesity with body mass index (BMI) of 50.0 to 59.9 in adult, unspecified obesity type, unspecified whether serious comorbidity present (HCC) Expected: 11/07/2021, Expires: 01/07/2022 [facility] Work Phone: Comment on above: Expected: 11/07/2021 , Expires: 01/07/2022 Start: 11-07-2021 End: 01-07-2022 VITAMIN D 25 HYDROXY VITAMIN D 25 HYDROXY Lab Routine Class 3 severe obesity with body mass index (BMI) of 50.0 to 59.9 in adult, unspecified obesity type, unspecified whether serious comorbidity present (HCC) Expected: 11/07/2021, Expires: 01/07/2022 [facility] Work Phone: Comment on above: Expected: 11/07/2021 , Expires: 01/07/2022 Start: 09-29-2021 End: 09-15-2022 EGD BARIATRIC EGD BARIATRIC Endoscopy Routine Morbid obesity due to excess calories (HCC) Expected: 09/29/2021, Expires: 09/15/2022 [facility] Work Phone: Comment on above: Expected: 09/29/2021 , Expires: 09/15/2022 Start: 05-21-2021 COVID-19 VACCINE (5 - Booster) COVID-19 VACCINE (5 - Booster) [facility] Start: 05-21-2021 COVID-19 VACCINE (5 - Pfizer series) COVID-19 VACCINE (5 - Pfizer series) [facility] Start: 2019 HPV TESTING HPV TESTING [facility] Start: 2010 PAP TESTING PAP TESTING [facility] Start: 2008 Urine microalbumin profile DTAP,TDAP,TD (1 - Tdap) [facility] Start: 2007 HEPATITIS C SCREENING HEPATITIS C SC REENING [facility] Start: 2007 HIV SCREENING HIV SCREENING [facility] Start: 2001 Adult depression screening assessment DEPRESSION SCREENING [facility] Start: 1989 HEPATITIS B (1 of 3 - 3-dose series) HEPATITIS B (1 of 3 - 3-dose series) [facility] Start: 1989 Hepatitis B Vaccine (1 of 3 - 3-dose series) Hepatitis B Vaccine (1 of 3 - 3-dose series) [facility] Basophils [#/volume] in Blood by Automated count [facility] Basophils/100 leukoc ytes in Blood by Automated count [facility] End: 11-07-2022 ECG COMPLETE ECG COMPLETE ECG Routine Class 3 severe obesity with body mass index (BMI) of 50.0 to 59.9 in adult, unspecified obesity type, unspecified whether serious comorbidity present (HCC) 1 Occurrences starting 11/07/2021 until 11/07/2022 [facility] Work Phone: Comment on above: 1 Occurrences starti ng 11/07/2021 until 11/07/2022 End: 09-16-2022 EGD DIAGNOSTIC EGD DIAGNOSTIC Endoscopy Routine Pre-op exam 1 Occurrences starting 09/16/2021 until 09/16/2022 [facility] Work Phone: Comment on above: 1 Occurrences starti ng 09/16/2021 until 09/16/2022 Eosinophils/100 leukocytes in Blood by Automated count [facility] Lymphocytes [#/volum e] in Blood by Automated count [facility] Lymphocytes/100 leukocytes in Blood by Automated count [facility] Monocytes [#/volume] in Blood by Automated count [facility] Monocytes/100 leukoc ytes in Blood by Automated count [facility] Neutrophils [#/volum e] in Blood by Automated count [facility] Neutrophils/100 leukocytes in Blood by Automated count [facility] Nucleated erythrocyt es [Presence] in Blood by Automated count [facility] Patient Education care [facility] Work Phone: Patient referral [facility] Work Phone: End: 12-07-2022 Radiologic exam chest 2 views XR CHEST 2V FRONTAL/LAT Radiology Routine Class 3 severe obesity with body mass index (BMI) of 50.0 to 59.9 in adult, unspecified obesity type, unspecified whether serious comorbidity present (HCC) 1 Occurrences starting 11/07/2021 until 12/07/2022 [facility] Work Phone: Comment on above: 1 Occurrences starti ng 11/07/2021 until 12/07/2022 End: 12-07-2022 Us abdominal real time w/image limited US ABD RT UPPER QUADRANT Radiology Routine Class 3 severe obesity with body mass index (BMI) of 50.0 to 59.9 in adult, unspecified obesity type, unspecified whether serious comorbidity present (HCC) 1 Occurrences starting 11/07/2021 until 12/07/2022 [facility] Work Phone: Comment on above: 1 Occurrences starti ng 11/07/2021 until 12/07/2022 [facility] Immunizations Immunization Date Immunization Notes Care Provider Fa cility 03-11-2022 influenza virus vacc ine, unspecified formulation Jona Bermudez MD Work Phone: [facility] Payers Date Payer Category Payer Unknown MMO MMO [employer] [id number] 2021-Present [phone] [address] [place] [address] PPO [id number] 2021 Unknown 1989 Unknown [id number] 1989 Unknown [id number] 1989 Unknown [id number] 1989 Unknown [id number] 1989 Unknown [id number] 1989 Unknown [id number] 1989 Unknown [id number] 1989 Unknown [id number] 1989 Unknown [id number] 1989 Unknown [id number] 1989 Unknown [id number] 1959 Self-pay 1959 Unknown [id number] Unknown [id number] Unknown [id number] Social History Date Type Detail Facility Start: 09-15-2021 End: 12-01-2023 Tobacco smoking status NHIS Never smoked tobacco [facility] Start: 09-15-2021 End: 03-18-2022 Tobacco use and exposure Smokeless tobacco non-user [facility] Start: 1990 Sex Assigned At Not on file [facility] Start: 09-05-2021 End: 03-26-2022 Exposure to SARS-CoV-2 (event) Not sure [facility] Start: 11-12-2021 Alcohol intake Current drinke r of alcohol (finding) [facility] Start: 11-12-2021 History SDOH Alcohol Comment Not weekly [facility] Start: 03-18-2022 End: 12-30-2022 Sex Assigned At [facility] Start: 1990 Sex Assigned At Female F [facility] Tobacco smoking consumption unknown [facility] Other Phone (unformatted): [phone] Start: 02-13-2022 End: 02-23-2022 Exposure to SARS-CoV-2 (event) Yes [facility] Start: 03-18-2022 End: 04-13-2023 Alcohol intake Ex-drinker (finding) [facility] Start: 03-18-2022 End: 12-30-2022 History of Social function [facility] Adult Depression Screening Assessment 0 [facility] Clinical Notes 12-20-2020 to 05-05-2023 Patient Bita Lei, RD - 05/05/2023 3:54 PM Jona Adams MD - 04/13/2023 10:20 AM ESTPatient Bita Lei RD - 12/30/2022 1:16 PM EDTPatient Instructions Note Date & Type Note Facility 05-05-2023 Note HNO ID: [id number] Author: Bita Vigil RD Service: ? Author Type: Registered Dietitian Type: Progress Notes Filed: 05/05/2023 5:03 PM Note Text: [facility] Nutrition Therapy: Virtual Consult - Re-assessment I have communicated my name and active licensure. The patient?s identity and physical location were verified at the time of this visit. Either the patient or their legal containers sales representative has been informed of the [...] Capsule with 45 mg Iron AND additional 0010-8795 mg per day Calcium Citrate 5. 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 Exercise: strive for daily activity. Increase as tolerated to goal of 200 minutes/week with combination of cardio and strength training exercise. 6. Practice mindful eating habits-take small portions, eat slowly, chew thoroughly Actions to implement interventions: see assessment Diet History: Breakfast - protein shake (20 gm protein powder, Instabug milk +/- PB2) OR eggs, breakfast meat [...] Physical limitations affect (more content not included)... [facility] 05-05-[address] - [...] Capsule with 45 mg Iron AND additional 3318-2372 mg per day Calcium Citrate 5. Exercise: [...] last 30 minutes documented in this encounter [facility] 05-05-2023 History of Present illness Narrative [facility] Nutrition Therapy: Virtual Consult - Re-assessment I have communicated my name and active licensure. The patient s identity and physical location were verified at the time of this visit. Either the patient or their legal containers sales representative has been informed of the [...] Capsule with 45 mg Iron AND additional 3899-7681 mg per day Calcium Citrate 5. 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 Protein: Continue to strive for 85 [...] Multivitamin Capsule with 45 mg Iron AND 5953-6150 mg per day Calcium Citrate 5. Exercise: strive for daily activity. Increase as tolerated to goal of 200 minutes/week with combination of cardio and strength training exercise. 6. Practice mindful eating habits-take small portions, eat slowly, chew thoroughly Actions to implement interventions: see assessment Diet History: Breakfast - protein shake (20 gm protein powder, Instabug milk +/- PB2) OR eggs, breakfast meat [...] 3:54 PM PAGER: documented in this encounter [facility] 04-13-2023 Note HNO ID: [id number] Author: Jona Johns MD Service: ? Author Type: Physician Type: Progress Notes Filed: 04/13/2023 10:55 AM Note Text: Metabolic Surgery Postoperative Virtual Clinic Visit Name: Funmilayo Conway I have communicated my name and active licensure. The patient's identity and physical location were verified at the time of this visit. Either the patient or their legal containers sales representative has been informed of the [...] the RDN note REFERRALS: Nutrition next week oJna Cormier MD, FACS, [facility] Bariatric Fellowship Hard Candy Batch MixerCounterintelligence Specialist laparoscopic Surgery Bariatric and Metabolic [facility] 04-13-2023 History of Present illness Narrative Images from the original note were not included. Metabolic Surgery Postoperative Virtual Clinic Visit Name: Funmilayo Conway I have communicated my name and active licensure. The patient's identity and physical location were verified at the time of this visit. Either the patient or their legal containers sales representative has been informed of the [...] next week Jona Cormier MD, FACS, GABI fish processor [facility] Bariatric Fellowship Hard Candy Batch MixerCounterintelligence Specialist laparoscopic Surgery Bariatric and Metabolic [place] documented in this encounter [facility] 12-30-2022 Note HNO ID: [id number] Author: Bita Vigil RD Service: ? Author [...] states doing well with no current concerns. 7577-5722 calories/day - advancing appropriately 80-100 protein intake/day - meeting needs 64+ fluid intake/day - meeting needs Taking all recommended vitamin/minerals from [employer] 1/day MVI with 45 mg Fe, 600 mg Ca citrated BID, and biotin. No new labs. Resting Metabolic Rate: 1722 Energy needs for weight loss 6684-9675 (15-20 kcals/kg CBW) Protein needs: 85 grams [...] Multivitamin Capsule with 45 mg Iron AND 9669-3789 mg per day Calcium Citrate 5. Exercise: [...] 25 minutes - Group Bita Vigil RD [facility] 12-30-[address] - [...] Multivitamin Capsule with 45 mg Iron AND 3636-8732 mg per day Calcium Citrate 5. Exercise: strive for daily activity. Increase as tolerated to goal of 200 minutes/week with combination of cardio and strength training exercise. 6. Practice mindful eating habits-take small portions, eat slowly, chew thoroughly documented in this encounter [facility] 12-30-2022 History of Present illness Narrative This [...] states doing well with no current concerns. 7406-1345 calories/day - advancing appropriately 80-100 protein intake/day - meeting needs 64+ fluid intake/day - meeting needs Taking all recommended vitamin/minerals from [facility] [employer] 1/day MVI with 45 mg Fe, 600 mg Ca citrated BID, and biotin. No new labs. Resting Metabolic Rate: 1722 Energy needs for weight loss 2003-9215 (15-20 kcals/kg CBW) Protein needs: 85 grams [...] Multivitamin Capsule with 45 mg Iron AND 0409-0952 mg per day Calcium Citrate 5. Exercise: [...] Bita Vigil RD documented in this encounter [facility] 09-09-2022 Note HNO ID: [id number] Author: Bita Vigil RD Service: ? Author [...] Rate: 1889 Energy needs for weight loss 6324-3823 (10-15 kcals/kg CBW) Protein needs: 85 grams [...] 32 minutes - Group Bita Vigil RD [facility] 06-09-2022 Note HNO ID: [id number] Author: Bita Vigil RD Service: ? Author Type: Registered Dietitian Type: Progress Notes Filed: 06/09/2022 10:17 AM Note Text: [facility] Nutrition Therapy: Virtual Consult - Re-assessment This [...] mg Iron and Calcium Citrate (total of 0739-6448 mg/day) * take calcium citrate separately from [...] Rate: 1992 Energy needs for weight loss 8254-5626 (10-15 kcals/kg CBW) Protein needs: 85 grams [...] in the AM, 2 in the PM) [email or web address] - [facility]: 1 Bariatric Multivitamin and Calcium Citrate (total of 7628-2560 mg/day) * take calcium citrate separately from Multivitamin with iron at least 2 hours apart and 4 hours apart from additional calcium [email or web address] - Bariatric Choice: 4 Complete Multivitamins (chewables) per day [email or web address] - Bariatric Advantage: 2 Multivitamins and 3 Calcium Citrate Chewables per day * take calcium citrate separately from Multivitamin with iron at least 2 hours apart and 4 hours apart from additional calcium [email or web address].[email or web address].[email or web address] 2. Protein goal: 85 grams protein/day 3. [...] veggie OR chili Snack - none OR british virgin islander yogurt Dinner - same as lunch Snack [...] 1-3 days/week) Anthropometrics: (more content not included)... [facility] 06-09-[address] - [...] mg Iron and Calcium Citrate (total of 7273-2652 mg/day) * take calcium citrate separately from [...] assessment (294 lbs) documented in this encounter [facility] 06-09-2022 History of Present illness Narrative [facility] Nutrition Therapy: Virtual Consult - Re-assessment This [...] mg Iron and Calcium Citrate (total of 4210-9589 mg/day) * take calcium citrate separately from [...] Rate: 1992 Energy needs for weight loss 4449-0516 (10-15 kcals/kg CBW) Protein needs: 85 grams [...] in the AM, 2 in the PM) www.bariatricfusion.Algorithmics - Compliance 360 Health: 1 Bariatric Multivitamin and Calcium Citrate (total of 8382-3320 mg/day) * take calcium citrate separately from Multivitamin with iron at least 2 hours apart and 4 hours apart from additional calcium www.Mobshop.Algorithmics - Bariatric Choice: 4 Complete Multivitamins (chewables) per day Www.bariatricRespect Your Universe.Algorithmics - Bariatric Advantage: 2 Multivitamins and 3 Calcium Citrate Chewables per day * take calcium citrate separately from Multivitamin with iron at least 2 hours apart and 4 hours apart from additional calcium Www.bariatricReichhold.Algorithmics 2. Protein goal: 85 grams protein/day 3. [...] veggie OR chili Snack - none OR british virgin islander yogurt Dinner - same as lunch Snack [...] 9:25 AM PAGER: documented in this encounter [facility] 05-17-2022 Note HNO ID: [id number] Author: Louise Tobin, PhD Service: ? Author Type: Psychologist Type: Progress Notes Filed: 05/18/2022 8:58 AM Note Text: [facility] Bariatric Behavioral Services Progress Note May 17, 2022 Billing codes: FAYE Tobin CPT Code: 26155 Brief Emotional/Behavioral Assessment with scoring/documentation [id number] Virtual GROUP PSYCHOTHERAPY Time initiated session: 8:30 AM to 9:30 AM Index Surgery Date of Surgery: 03/26/22 Surgeon: Dr. Cormier. Surgical Procedure: gastric bypass Current weight: 283 pounds Psychologist: Piedad Pt was seen in a virtual group. Participants were given the opportunity to discuss their experience since surgery and ask questions of other group members. The group middle school resource teacher addressed questions and concerns related to psychological [...] hoped. She was able to navigate a [employer] well - I felt normal. Patient mood [...] BMI team Louise Tobin, PhD, RD, LD, [facility] ACS-CEP, Psychologist [facility] 05-07-2022 History of Present illness Narrative [...] & Bariatric Surgery Fellow Bariatric & Metabolic [facility] STAFF ATTESTATION: I have reviewed the note [...] which included preparing to see the patient, [id number] patient care, completing clinical documentation, obtaining and/or [...] Jona Cormier MD documented in this encounter [facility] 04-08-2022 History of Present illness Narrative BARIATRIC SURGERY CLINIC FOLLOW UP NOTE Clinic Date: 04/08/2022 Funmilayo Conway, 31 year old [address] [facility] [address] This visit was performed virtually (phone conversation) [...] 03/18/22: 143 kg (315 lb 4.8 oz). [place] weight: 68.5 kg (150 lb 15.1 oz) [...] or skin changes. PHYSICAL EXAM: PHYSICAL EXAMINATION:[facility] 03/16/2021 GENERAL: No apparent distress. [...] and Bariatric Surgery documented in this encounter [facility] 03-18-2022 History of Present illness Narrative BARIATRIC SURGERY PREOPERATIVE VISIT NOTE Name: Funmilayo Conway Medical Record: [id number] Encounter No.: [id number] Funmilayo Conway is a 31 year old [...] which included preparing to see the patient, [id number] patient care, completing clinical documentation, obtaining and/or reviewing separately obtained history, counseling and educating the patient/family/caregiver, and ordering medications, tests, or procedures. Prescriptions were explained and provided to the patient. Jona Bermudez MD Advanced Laparoscopic and Bariatric Surgery documented in this encounter [facility] 03-18-2022 Instructions Kwame Rodriguez APRN.SENIOR WIND TURBINE TECHNICIAN - 03/18/2022 2:08 PM EDT PATIENT PREOPERATIVE INSTRUCTIONS Jerardo Johns* has scheduled you for your procedure at this surgery center: [facility] Scheduling Office: [phone] --[address] [place] [address]. Please read below carefully for your personalized [...] Procedures: - YOU MUST HAVE A RESPONSIBLE TELEPHONE ORDER CLERK ROOM SERVICE TAKE YOU HOME. A AIRPLANE REFUELER OR SHIPPING/RECEIVING MANAGER CANNOT BE MADE A RESPONSIBLE TELEPHONE ORDER CLERK ROOM SERVICE. - We recommend that a responsible person [...] call the Wednesday before. Your surgeon s stock counter will tell you what time to call the office. - If you have not reached the departmental stock counter by 5 P.M., call [phone] after 5 P.M. the day before your surgery. Please be aware that emergency situations arise, which may delay or change your surgical time. If this happens, we will notify you as soon as possible and regret any inconvenience. If you already have an Advance Directive, please fax a copy to [phone] or email to for it to be [...] Kwame Rodriguez APRN.DNP documented in this encounter [facility] 03-18-2022 History and physical note HISTORY AND [...] fevers. Neuro: No history of TIA's, stroke, CHILD DAY CARE PROVIDER tumor, impaired sensorium, hemiplegia, paraplegia or quadraplegia. No neurological symptoms or problems. Respiratory: No history of current cough or dyspnea, or pneumonia in the past 6 weeks. No history of respiratory/pulmonary symptoms or problems. Cardiovascular: No history of HTN requiring medication, no history of angina, CHF, RI, cardiac surgery or stents. Denies rest pain, [...] or incontinence,, stones or chronic kidney disease TALENT ACQUISITION ADMINISTRATOR: Negative for abnormal vaginal bleeding, abnormal vaginal [...] TIME: 1:59 PM documented in this encounter [facility] 03-13-2022 Miscellaneous Notes BMI SPECIALTY CARE COORDINATION [...] the recovery room and again on the edouard. They will most likely ask you to [...] Jagruti Escobar RN documented in this encounter [facility] 03-10-2022 Instructions Francoise Hardwick, TERENCE - 03/10/2022 3:26 PM EDT Nutrition Intervention: [...] fish, low fat dairy - cottage cheese, Guinean yogurt, light yogurt, cheese, ricotta cheese, nuts, [...] - Celebrate: multiple options- look on website Www.Nixleebratevitamins.com - Procare Health: 1 Multivitamin and Calcium Citrate twice a day (total of 5688-9105 mg/day) * take calcium citrate separately from [...] weeks post op documented in this encounter [facility] 03-10-2022 History of Present illness Narrative This [...] fish, low fat dairy - cottage cheese, Guinean yogurt, light yogurt, cheese, ricotta cheese, nuts, [...] - Celebrate: multiple options- look on website Www.Nixleebratevitamins.com - Procare Health: 1 Multivitamin and Calcium Citrate twice a day (total of 2999-4890 mg/day) * take calcium citrate separately from Multivitamin with iron at least 2 hours apart and 4 hours apart from additional calcium www.Mobshop.Algorithmics - Bariatric Choice: 4 complete multivitamins (chewables) per day Www.bariatricchoice.com - Bariatric Advantage: 2 Multivitamins and 3 Calcium Citrate Chewables per day * take calcium citrate separately from Multivitamin with iron at least 2 hours apart and 4 hours apart from additional calcium www.bariatricadXAircraft.Algorithmics B complex with at least 75 mg [...] fish, low fat dairy - cottage cheese, Guinean yogurt, light yogurt, cheese, ricotta cheese, nuts, [...] Calcium Citrate twice a day (total of 1833-5424 mg/day) * take calcium citrate separately from Multivitamin with iron at least 2 hours apart and 4 hours apart from additional calcium www.Mobshop.Algorithmics - Bariatric Choice: 4 complete multivitamins (chewable) per day Www.bariatricchoice.com - Bariatric Advantage: 2 Multivitamins and 3 Calcium Citrate Chewable per day * take calcium citrate separately from Multivitamin with iron at least 2 hours apart and 4 hours apart from additional calcium www.bariatricadvantage.Algorithmics B complex with at least 75 mg [...] RDN, JOSE, MFNamita documented in this encounter [facility] 12-23-2021 Miscellaneous Notes The following approved medication [...] Danny Cristina DO documented in this encounter [facility] 12-03-2021 Nurse Note EKG completed and reviewed; documented in this encounter [facility] 12-01-2021 History of Present illness Narrative This [...] in the AM, 2 in the PM) www.bariatricfusion.Algorithmics - Procare Health: 1 Bariatric Multivitamin and Calcium Citrate (total of 7679-7189 mg/day) * take calcium citrate separately from Multivitamin with iron at least 2 hours apart and 4 hours apart from additional calcium www.Inspivia - Bariatric Choice: 4 Complete Multivitamins (chewables) per day Www.CatchMe!.Algorithmics - Bariatric Advantage: 2 Multivitamins and 3 Calcium Citrate Chewables per day * take calcium citrate separately from Multivitamin with iron at least 2 hours apart and 4 hours apart from additional calcium Www.bariatricadPlanGridage.Algorithmics Pre-op goal weight: 319 pounds Protein needs: [...] fish, low fat dairy - cottage cheese, Guinean yogurt, light yogurt, cheese, ricotta cheese, nuts, [...] - Celebrate: multiple options- look on website Www.SkyCacherateHithrus.Algorithmics - Compliance 360 Health: 1 Multivitamin and Calcium Citrate twice a day (total of 7222-3289 mg/day) * take calcium citrate separately from Multivitamin with iron at least 2 hours apart and 4 hours apart from additional calcium www.Inspivia - Bariatric Choice: 4 complete multivitamins (chewables) per day Www.bariatricRespect Your Universe.Algorithmics - Bariatric Advantage: 2 Multivitamins and 3 Calcium Citrate Chewables per day * take calcium citrate separately from Multivitamin with iron at least 2 hours apart and 4 hours apart from additional calcium www.bariatricadvantage.Algorithmics B complex with at least 75 mg [...] Davida Kaur MS,RD,CSOWM,LD documented in this encounter [facility] 11-28-2021 Note HNO ID: [id number] Author: Keira Salvador RDMS, RVT Service: Radiology Author Type: Yarn Hauler Type: Progress Notes Filed: 11/28/2021 1:52 PM [...] RDMS, RVT November 28, 2021 1:52 PM [facility] 11-28-2021 History of Present illness Narrative Radiology [...] 2021 1:52 PM documented in this encounter [facility] 11-28-2021 Note HNO ID: [id number] Author: RT Leann(R) Service: ? Author Type: [...] RT Leann(R) November 28, 2021 12:58 PM [facility] 11-28-2021 History of Present illness Narrative Radiology [...] 2021 12:58 PM documented in this encounter [facility] 11-26-2021 History and physical note UPDATED HISTORY [...] Pcp This is a virtual visit using [employer] video visit. It required patient-provider interaction for the medical decision making as documented below. REASON FOR VISIT: Funmilayo oCnway is a 31 year old female who [...] fevers. Neurological: No history of TIA's, stroke, CHILD DAY CARE PROVIDER tumor, impaired sensorium, hemiplegia, paraplegia or quadraplegia. No neurological symptoms or problems. Respiratory: No history of current cough or dyspnea, or pneumonia in the past 6 weeks. No history of respiratory/pulmonary symptoms or problems. Cardiovascular: No history of HTN requiring medication, no history of angina, CHF, RI, cardiac surgery or stents. Denies rest pain, [...] > 1 time per night or hematuria. TALENT ACQUISITION ADMINISTRATOR: Negative for abnormal vaginal bleeding, abnormal vaginal [...] or any previous visit (from the past 43090 hour(s)). Assessment Morbidly obese (HCC) Assessment: Body [...] or younger Non-male patient STOP-Bang Score: 3 [id number] Score: Age: <65 Sex: female CHF history: No Hypertension history: No Stroke/TIA/thromboembolism history: No Vascular disease history: No Diabetes history: No [id number] Score: 1 ASA Class: 3 ANESTHESIA FINDINGS: [...] PM PAGER/CONTACT #: documented in this encounter [facility] 11-12-2021 History and physical note Images from the original note were not included. HISTORY AND PHYSICAL EXAMINATION SERVICE DATE: 11/12/2021 SERVICE TIME: 3:26 PM PRIMARY CARE PHYSICIAN: No Pcp This is a virtual visit using [employer] video visit. It required patient-provider interaction for [...] fevers. Neurological: No history of TIA's, stroke, CHILD DAY CARE PROVIDER tumor, impaired sensorium, hemiplegia, paraplegia or quadraplegia. No neurological symptoms or problems. Respiratory: No history of current cough or dyspnea, or pneumonia in the past 6 weeks. No history of respiratory/pulmonary symptoms or problems. Cardiovascular: No history of HTN requiring medication, no history of angina, CHF, RI, cardiac surgery or stents. Denies rest pain, [...] > 1 time per night or hematuria. TALENT ACQUISITION ADMINISTRATOR: Negative for abnormal vaginal bleeding, abnormal vaginal [...] or any previous visit (from the past 03514 hour(s)). Assessment Morbidly obese (HCC) Assessment: Body [...] or younger Non-male patient STOP-Bang Score: 3 [id number] Score: Age: <65 Sex: female CHF history: No Hypertension history: No Stroke/TIA/thromboembolism history: No Vascular disease history: No Diabetes history: No [id number] Score: 1 ASA Class: 3 ANESTHESIA FINDINGS: [...] PM PAGER/CONTACT #: documented in this encounter [facility] 11-12-2021 Instructions Maria T Lares APRN.SENIOR WIND TURBINE TECHNICIAN - 11/12/2021 3:40 PM EDT PATIENT PREOPERATIVE INSTRUCTIONS Mulugeta Salmon MD has scheduled you for your procedure at this surgery center: [facility]: [phone] --[address] [place] [address]. Please enter through the entrance closest to [...] Procedures: - YOU MUST HAVE A RESPONSIBLE TELEPHONE ORDER CLERK ROOM SERVICE TAKE YOU HOME. A AIRPLANE REFUELER OR SHIPPING/RECEIVING MANAGER CANNOT BE MADE A RESPONSIBLE TELEPHONE ORDER CLERK ROOM SERVICE. - We recommend that a responsible person [...] Advance Directive, please fax a copy to [phone] or email to for it to be [...] T Lares APRN.CNP documented in this encounter [facility] 11-07-2021 Instructions Danny Cristina, - 11/07/2021 9:39 AM EDT Lovely Conway , Thank you for completing your visit today and we welcome you to the surgical program. We are sure that you will still have some additional questions and encourage you to reach out to your care provider via [employer] OR your Patient Navigator. Patient Navigators are assigned alphabetically by patient last name. The contact information for each Navigator is listed below. Last names A-E= Airam Last names F-L = Opal Last names M-R= Adin Last names S-Z= oZe Additionally, you may find many of the [...] free to ask for a hard copy. [email or web address]?la= en Once you complete all of the requirements (testing, consultations, diet, etc) from each provider, please call [phone] and select option #5 to initiate insurance approval. Please note scheduling information It is important to keep track of your scheduled appointments to ensure successful completion of our surgical program. Any missed appointments can further delay your pre-surgical work-up. [facility] does offer an opt-in option for getting text message appointment reminders. Please follow the link below if you would like to opt into this service. [email or web address] As part of your surgical work up, [...] these tests. You may call your local [facility] to get an appointment. - Lab work- No appointment is needed for this, you may complete at any [facility] Laboratory. These are usually fasting labs, please be sure to fast (only water permitted) for 10-12 hours prior to the test. -Sleep Study- Please call [phone] or [phone] to get this appointment set up. -Sleep Medicine Consult- (Only needed if sleep study confirms sleep apnea) Please call [phone] or [phone] to schedule an appointment. -Upper GI/ EGD- Please call [phone] to schedule. -Provider follow up visit- Please call [phone] OR [phone] to schedule. Any testing that is completed outside of [facility] will need faxed to [phone]. We look forward to working with you on this journey, Danny Cristina DO documented in this encounter [facility] 11-07-2021 History of Present illness Narrative DISTANCE [...] healthy diet. Since the visit with the traveling operator, eating less starch, not skipping meals, and eating more vegetables. Characterization of diet:Structured. History of eating disorders: negative Previous Obesity Treatments: commercial diets and dietitian. Exercise: Regular exercise: walking 3 times a week Barriers to regular exercise? None Stress test: no Functional Status: Run a short distance (8.00 METs) Sleep: TANI NO ; CPAP NO Quality:poor, Numerous awakenings Cath Laboratory Technician Work? NO STOP BANG 1. Snoring : [...] PCOS Vitamin D deficiency No history of RI, COPD, asthma, peptic ulcer disease, dyslipidemia, hypothyroidism, [...] Danny Cristina DO documented in this encounter [facility] 10-27-2021 Evaluation note Encounter Date Diagnosis Assessment [...] Patient care instructions given in writting by [facility] Care At Home document. [employer] Other [id number] History of Present illness Narrative* Jagruti Escobar RN - 09/16/2021 9:47 AM EDT Opened in error. [facility] History of Present illness Narrative* Jona Bermudez MD - 09/15/2021 3:18 PM EDT Images from the original note were not included. [facility] DEPARTMENT OF SURGERY Jona Cormier M.D. [address] [place] [id number] NAME: Funmilayo Conway [facility] NO: [id number] DATE OF SERVICE: September 15, 2021 This [...] which included preparing to see the patient, [id number] patient care, completing clinical documentation, obtaining and/or reviewing separately obtained history, performing a medically appropriate examination, counseling and educating the pat ient/family/caregiver and ordering medications, tests, or procedures. Jona Bermudez MD Advanced Laparoscopic and Bariatric Surgery [facility] NoteChief Complaint consultation for GI complaints HPI [...] Vaccine Date Status Com (more content not included)...[facility]:Result Comment: Electronically Signed By: EDY JOYCE, Elmira Infante\.lito\Date and Time Signed: 08/04/21 17:32 [id number] NoteAdmission Information Admitting Physician - Neela LIM [...] voiding. [facility] --Other chronic medical conditions as outlined in note. Refer to d/c plan below: -Case reviewed and discussed with Dr. Graham who is in agreement with current d/c plan. Case will be reviewed and discussed with PCP or information assurance officer MD once the hospital equipment operator is able to reach him/her. I [...] made to ensure accuracy, however, inadvertently computerized appliance fixer mistakes may be present. Significant Findings CT [...] and spleen are not included within the bgyhj-xh-hcod of this renal stone protocol study. The [...] Ferreira DO 12/20/20 07:33: (more content not included)...[facility] on above:Result Comment: Electronically Signed By: Prerna CAVANAUGH\.br\Date and Time Signed: 12/20/20 10:28 EDT\.br\Electronically Co-Signed By: Jarred GRAHAM MD\.br\Date and Time Co-Signed: 01/13/21 08:22 [id number] NoteMicrobiology PROCEDURE: Blood Culture Charcoal [R1] SOURCE: Blood BODY SITE: Arm L COLLECTED DATE/TIME: 12/19/2020 17:25 EDT RECEIVED DATE/TIME: 12/19/2020 17:39 EDT START DATE/TIME: 12/19/2020 17:39 EDT FREE TEXT SOURCE: IV start Jhon DO, Shiva S. Jhon DO, Shiva S. FINAL REPORTS Final Report [] Verified Date/Time: 12/26/2020 18:00 EDT No growth at 7 days. Performing Locations R1: This test was performed at: [facility], [address] [place] [address], [id number] [place] [address], JgjmjbAvita Health SystemComment on above:Performed By: #### [id number] #### [facility] [address] [place] [address] [id number] NoteMicrobiology PROCEDURE: Blood Culture Charcoal [R1] SOURCE: Blood BODY SITE: Arm R COLLECTED DATE/TIME: 12/19/2020 17:30 EDT RECEIVED DATE/TIME: 12/19/2020 17:39 EDT START DATE/TIME: 12/19/2020 17:39 EDT FREE TEXT SOURCE: Shiva Ferreira DO, DO, Noah S. FINAL REPORTS Final Report [] Verified Date/Time: 12/26/2020 18:00 EDT No growth at 7 days. Performing Locations R1: This test was performed at: [facility], [address] [place] [address], [address] [place] [address], ZfkbtjAvita Health SystemComment on above:Performed By: #### [id number] ####[facility] [id number] [place], [place] [id number] Marsha Flores entered room at this time to discuss discharge planning. Patient is alert & involved in plan of care. Labs & diagnostics reviewed. DME discussed. PCP/insurance information verified. Contact information provided with white polina updated. Observation status. Patient states she is f eeling better this morning. Lives at home independently with spouse. Will drive herself home upon discharge. Denies need for CRM to call family for updates, states will be in to visit. No further questions. Anticipate no discharge needs. Anticipated discharge home 12/20. CRM remains available.[facility] SystemComment on above:Result Comment: Electronically Signed By: Janusz SOLIS, Sandra Alatorre\.br\Date and Time Signed: 12/20/20 08:26 [id number] Note Chief Complaint From home, patient complains [...] % (12/19/20:30:00) Lymph Auto: 29.4 % (12/19/20:30:00) [place]icking Auto: 7.8 % (12/19/20:30:00) Eos Auto: 0.6 % (12/19/20:30:00) Basophil Auto: 0.7 % (12/19/20:30:00) Neutro Absolute: 5.1 E9/L (12/19/20:30:00) Lymph Absolute: 2.5 E9/L (12/19/20:30:00) [place]icking Absolute: 0.7 E9/L (12/19/20:30:00) Eos Absolute: 0.1 E9/L (12/19/20:30:00) Basophil Absolute: 0.1 E9/L (12/19/20:30:00) Glucose Lvl: 90 mg/dL (12/19/20:30:00) BUN: 6 mg/dL (12/19/20:30:00) Creatinine: 0.5 mg/dL (12/19/20:30:00) eGFR: >60 (12/19/20:30:00) eGFR AA: >60 (12/19/20:30:00) BUN/Creat Ratio: 12 (12/19/20 17:30:00) Sodium Lvl: 138 mmol/L (12/19/20 17:30:00) Potassium Lvl: 3.8 mmol/L (12/19/20 17:30:00) Chloride: 103 mmol/L (12/19/20 17:30:00) CO2: 25 mmol/L (12/19/20 17:30:00) AGAP: 14 mEq/L (12/19/20:30:00) Calcium Lvl: 8.9 mg/dL (12/19/20:30:00) Alk Phos: 44 Int._Unit/L (12/19/20:30:00) ALT: 22 Int._Unit/L (12/19/20:30:00) AST: 18 Int._Unit/L (12/19/20:30:00) Total Protein: 8.2 gm/dL High (12/19/20:30:00) Albumin Lvl: 4.2 gm/dL (12/19/20:30:00) Globulin: 4 gm/dL (12/19/20:30:00) A/G Ratio: 1 Low (12/19/20:30:00) Bili Total: 0.8 mg/dL (12/19/20 17:30:00) Lactic Acid Lvl: 0.8 mmol/L (12/19/20 20:47:00) [...] See #1 3. L (more content not included)...[facility] SystemComment on above: Result Comment: Electronically Signed By: Neela LIM DO.lito\Date and Time Signed: 12/20/20 05:29 EDTEvaluation note* Diagnosis Morbid obesity due to excess calories (HCC)- Primary History of delivery Other postprocedural status [facility] Diagnosis Pre-op exam- Primary Preoperative examination, unspecified [facility] Diagnosis Morbid obesity (HCC)- Primary Morbid obesity [facility] Diagnosis Class 3 severe obesity with body mass index (BMI) of 50.0 to 59.9 in adult, unspecified obesity type, unspecified whether serious comorbidity present (HCC)- Primary PCOS (polycystic ovarian syndrome) Polycystic ovaries [facility] Diagnosis Preoperative examination- Primary Preoperative examination, unspecified Morbidly obese (HCC) Morbid obesity Fatty liver Other chronic nonalcoholic liver disease Anxiety and depression Dysthymic disorder [facility] Diagnosis Pre-op exam Preoperative examination, unspecified [facility] Diagnosis Class 3 severe obesity with body mass index (BMI) of 50.0 to 59.9 in adult, unspecified obesity type, unspecified whether serious comorbidity present (HCC) documented in this encounter [facility] note* Diagnosis Class 3 severe obesity with body mass index (BMI) of 50.0 to 59.9 in adult, unspecified obesity type, unspecified whether serious comorbidity present (HCC)- Primary Dietary counseling and surveillance Dietary surveillance and counseling PCOS (polycystic ovarian syndrome) Polycystic ovaries documented in this encounter [facility] note* Diagnosis Class 3 severe obesity with body mass index (BMI) of 50.0 to 59.9 in adult, unspecified obesity type, unspecified whether serious comorbidity present (HCC) [facility]* Diagnosis Morbid obesity (HCC)- Primary Morbid obesity documented in this encounter [facility] noteNo assessment information [facility]Sum[facility] Work Phone: Evaluation note* Diagnosis BMI 50.0-59.9, adult (HCC)- Primary Body Mass Index 50.0-59.9, adult Dietary counseling Dietary surveillance and counseling Morbid obesity (HCC) Morbid obesity documented in this encounter [facility] note* Diagnosis Anxiety and depression Dysthymic disorder Morbid obesity (HCC) Morbid obesity documented in this encounter [facility] note* Diagnosis BMI 50.0-59.9, adult (HCC)- Primary Body Mass Index 50.0-59.9, adult PCOS (polycystic ovarian syndrome) Polycystic ovaries History of delivery Other postprocedural status Fatty liver Other chronic nonalcoholic liver disease Morbid obesity (HCC) Morbid obesity documented in this encounter [facility] note* Diagnosis Status post gastric bypass for obesity- Primary Bariatric surgery status Obesity, Class III, BMI 40-49.9 (morbid obesity) (HCC) Morbid obesity documented in this encounter [facility] note* Diagnosis History of Cathie-en-Y gastric bypass- Primary Bariatric surgery status documented in this encounter [facility] note* Diagnosis S/P gastric bypass- Primary Bariatric surgery status Impaired intestinal absorption Unspecified intestinal malabsorption Dietary counseling and surveillance Dietary surveillance and counseling documented in this encounter [facility] note* Diagnosis S/P gastric bypass- Primary Bariatric surgery status Dietary counseling and surveillance Dietary surveillance and counseling documented in this encounter [facility] note* Diagnosis S/P gastric bypass- Primary Bariatric surgery status documented in this encounter [facility] note* Diagnosis S/P gastric bypass- Primary Bariatric surgery status Impaired intestinal absorption Unspecified intestinal malabsorption Dietary counseling and surveillance Dietary surveillance and counseling documented in this encounter [facility] general Narrative - Reported* Type Description Date Medical History PCOS Medical History chronic depression Medical History anxiety Surgical History tonsillectomy and adenoidectomy x2 Surgical History wisdom teeth Surgical History cyst removal from left foot Surgical History nasal surgery Surgical History C section [facility] History see [facility] Outpatient Procedure (Routine) - Pending Review Specialty Diagnoses / Procedures Referred By Vipin kunz Referred To Contact [facility] Diagnoses Morbid obesity due to excess calories (HCC) Procedures EGD BARIATRIC ESOPHAGOGASTRODUODENOSC OPY TRANSORAL DIAGNOSTIC Jona Johns MD [address] [phone] [facility] [place] [address] Referral ID Status Reason Start Date Expiration Date Visits Requested Visits Authorized [id number] Pending Review Auto-Generat ed Referral 09/29/2021 09/15/2022 1 1 [facility] for referral (narrative)* Outpatient Procedure (Routine) - Authorized Specialty Diagnoses / Procedures Referred By Vipin kunz Referred To Contact [facility] Diagnoses Pre-op exam Procedures EGD DIAGNOSTIC ESOPHAGOGASTRODUODENOSC OPY TRANSOR[place] [id number] [place] [address] Referral ID Status Reason Start Date Expiration Date Visits Requested Visits Authorized [id number] Authorized Auto-Generat ed Referral 09/16/2021 09/16/2022 1 1 [facility] for referral (narrative)* Diagnostic Procedure Only [...] TIME W/IMAGE LIMITED Danny Cristina DO [address] [id number] [facility] Referral ID Status Reason Start Date Expiration Date Visits Requested Visits Authorized [id number] Pending Review Auto-Generat ed Referral 11/07/2021 12/07/2022 [...] 12 LDS W/I&R Danny Cristina DO [address] [place] [address] [place] [address] Referral ID Status Reason Start Date Expiration Date Visits Requested Visits Authorized [id number] Pending Review Auto-Generat ed Referral 11/07/2021 11/07/2022 1 1 [facility] for referral (narrative)* Outpatient Procedure (Routine) - Closed Specialty Diagnoses / Procedures Referred By Contac t Referred To Contact [facility] Diagnoses Pre-op exam Procedures EGD DIAGNOSTIC ESOPHAGOGASTRODUODENOSC OPY TRANSORAL [place] [address] [phone] [facility] [address] [place] [address] Referral ID Status Reason Start Date Expiration Date V isits Requested Visits Authorized [id number] Closed Auto-Generate d Referral 09/16/2021 09/16/2022 1 1 [facility] for referral (narrative)* Diagnostic Procedure Only (Routine) - Closed Specialty Diagnoses / Procedures Referred By Contac t Referred To Contact [facility] IMAGING Diagnoses Class 3 severe obesity with body mass index (BMI) of 50.0 to 59.9 in adult, unspecified obesity type, unspecified whether serious comorbidity present (HCC) Procedures US ABD RT UPPER QUADRANT US ABDOMINAL REAL TIME W/IMAGE LIMITED Danny Cristina DO [address] [place] [address] Us Imaging Referral ID Status Reason Start Date Expiration Date V isits Requested Visits Authorized [id number] Closed Auto-Generate d Referral 11/07/2021 12/07/2022 1 1 [facility] for visit Narrative* Outpatient Procedure (Routine) - Closed Specialty Diagnoses / Procedures Referred By Contac t Referred To Contact [facility] Diagnoses Pre-op exam Procedures EGD DIAGNOSTIC ESOPHAGOGASTRODUODENOSC OPY TRANSORAL [place] [address] [place] [address] [facility] [place] [address] [place] [address] Referral ID Status Reason Start Date Expiration Date V isits Requested Visits Authorized [id number] Closed Auto-Generate d Referral 09/16/2021 09/16/2022 1 1 [facility] for visit Narrative* Diagnostic Procedure Only (Routine) - Closed Specialty Diagnoses / Procedures Referred By Contac t Referred To Contact US IMAGING Diagnoses Class 3 severe obesity with body mass index (BMI) of 50.0 to 59.9 in adult, unspecified obesity type, unspecified whether serious comorbidity present (HCC) Procedures US ABD RT UPPER QUADRANT US ABDOMINAL REAL TIME W/IMAGE LIMITED Danny Cristina DO [address] [place] [address] Us Imaging Referral ID Status Reason Start Date Expiration Date V isits Requested Visits Authorized [id number] Closed Auto-Generate d Referral 11/07/2021 12/07/2022 1 1 [facility] Summary Purpose Family History No Family History Records FoundNo Family History Records FoundNo Family History Records FoundNo Family History Records FoundNo Family History Records FoundNo Family History Records FoundNo Family History Records FoundNo Family History Records Found Advance Directives No Advanced Directives Records FoundDocuments on File Type Date Recorded 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 Advance Directive(s) 10/27/2021 6:10 PM Documents on File Type Date Recorded 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 Advance Directive(s) 10/27/2021 6:10 PM Advance Directive Response Recorded Date/ Time Advance Directives No July 04, 2019 11:44am Chief Complaint and Reason for Visit Chief Complaint wellness Chief Complaint abd cramping, 8 wks preg Chief Complaint abd cramping, 8 wks preg Unknown Additional Source Comments INFORMATION SOURCE (unrecogn ized section and content) DATE CREATED AUTHOR 09/01/2021 [facility] DATE CREATED AUTHOR AUTHOR'S ORGANIZ ATION 11/13/2021 [facility] DATE CREATED AUTHOR AUTHOR'S ORGANIZ ATION 12/05/2021 [facility] DATE CREATED AUTHOR AUTHOR'S ORGANIZ ATION 01/10/[address] [facility] DATE CREATED AUTHOR AUTHOR'S ORGANIZ ATION 02/13/2022 [facility] DATE CREATED AUTHOR AUTHOR'S ORGANIZ ATION 05/08/2023 [facility] DATE CREATED AUTHOR AUTHOR'S ORGANIZ ATION 12/23/2023 [facility] DATE CREATED AUTHOR AUTHOR'S ORGANIZ ATION 12/24/2023 [facility] EPIC Source Comments (unrecognize d section and content) In the event this informatio n is protected by the Federal Confidentiality of Alcohol and Drug Abuse Patient Records regulations: The Federal rules restrict any use of the information to criminally investigate or prosecute any alcohol or drug abuse patient.[facility] the event this information is protected by the Federal Confidentiality of Alcohol and Drug Abuse Patient Records regulations: The Federal rules restrict any use of the information to criminally investigate or prosecute any alcohol or drug abuse patient.[facility] Rehabilitation[facility] the event this information is protected by the Federal Confidentiality of Alcohol and Drug Abuse Patient Records regulations: The Federal rules restrict any use of the information to criminally investigate or prosecute any alcohol or drug abuse patient.[facility] Rehabilitation[facility] the event this information is protected by the Federal Confidentiality of Alcohol and Drug Abuse Patient Records regulations: The Federal rules restrict any use of the information to criminally investigate or prosecute any alcohol or drug abuse patient.[facility] Rehabilitation[facility] the event this information is protected by the Federal Confidentiality of Alcohol and Drug Abuse Patient Records regulations: The Federal rules restrict any use of the information to criminally investigate or prosecute any alcohol or drug abuse patient.[facility] Rehabilitation[facility] the event this information is protected by the Federal Confidentiality of Alcohol and Drug Abuse Patient Records regulations: The Federal rules restrict any use of the information to criminally investigate or prosecute any alcohol or drug abuse patient.[facility] RehabilitationIn the event this information is protected by the Federal Confidentiality of Alcohol and Drug Abuse Patient Records regulations: The Federal rules restrict any use of the information to criminally investigate or prosecute any alcohol or drug abuse patient.[facility] RehabilitationIn the event this information is protected by the Federal Confidentiality of Alcohol and Drug Abuse Patient Records regulations: The Federal rules restrict any use of the information to criminally investigate or prosecute any alcohol or drug abuse patient.[facility] RehabilitationIn the event this information is protected by the Federal Confidentiality of Alcohol and Drug Abuse Patient Records regulations: The Federal rules restrict any use of the information to criminally investigate or prosecute any alcohol or drug abuse patient.[facility] Rehabilitation[facility] the event this information is protected by the Federal Confidentiality of Alcohol and Drug Abuse Patient Records regulations: The Federal rules restrict any use of the information to criminally investigate or prosecute any alcohol or drug abuse patient.[facility] RehabilitationIn the event this information is protected by the Federal Confidentiality of Alcohol and Drug Abuse Patient Records regulations: The Federal rules restrict any use of the information to criminally investigate or prosecute any alcohol or drug abuse patient.[facility] RehabilitationIn the event this information is protected by the Federal Confidentiality of Alcohol and Drug Abuse Patient Records regulations: The Federal rules restrict any use of the information to criminally investigate or prosecute any alcohol or drug abuse patient.[facility] RehabilitationIn the event this information is protected by the Federal Confidentiality of Alcohol and Drug Abuse Patient Records regulations: The Federal rules restrict any use of the information to criminally investigate or prosecute any alcohol or drug abuse patient.[facility] RehabilitationIn the event this information is protected by the Federal Confidentiality of Alcohol and Drug Abuse Patient Records regulations: The Federal rules restrict any use of the information to criminally investigate or prosecute any alcohol or drug abuse patient.[facility] RehabilitationIn the event this information is protected by the Federal Confidentiality of Alcohol and Drug Abuse Patient Records regulations: The Federal rules restrict any use of the information to criminally investigate or prosecute any alcohol or drug abuse patient.[facility] RehabilitationIn the event this information is protected by the Federal Confidentiality of Alcohol and Drug Abuse Patient Records regulations: The Federal rules restrict any use of the information to criminally investigate or prosecute any alcohol or drug abuse patient.[facility] RehabilitationIn the event this information is protected by the Federal Confidentiality of Alcohol and Drug Abuse Patient Records regulations: The Federal rules restrict any use of the information to criminally investigate or prosecute any alcohol or drug abuse patient.[facility] RehabilitationIn the event this information is protected by the Federal Confidentiality of Alcohol and Drug Abuse Patient Records regulations: The Federal rules restrict any use of the information to criminally investigate or prosecute any alcohol or drug abuse patient.[facility] RehabilitationIn the event this information is protected by the Federal Confidentiality of Alcohol and Drug Abuse Patient Records regulations: The Federal rules restrict any use of the information to criminally investigate or prosecute any alcohol or drug abuse patient.[facility] RehabilitationIn the event this information is protected by the Federal Confidentiality of Alcohol and Drug Abuse Patient Records regulations: The Federal rules restrict any use of the information to criminally investigate or prosecute any alcohol or drug abuse patient.[facility] RehabilitationIn the event this information is protected by the Federal Confidentiality of Alcohol and Drug Abuse Patient Records regulations: The Federal rules restrict any use of the information to criminally investigate or prosecute any alcohol or drug abuse patient.[facility] RehabilitationIn the event this information is protected by the Federal Confidentiality of Alcohol and Drug Abuse Patient Records regulations: The Federal rules restrict any use of the information to criminally investigate or prosecute any alcohol or drug abuse patient.[facility] RehabilitationIn the event this information is protected by the Federal Confidentiality of Alcohol and Drug Abuse Patient Records regulations: The Federal rules restrict any use of the information to criminally investigate or prosecute any alcohol or drug abuse patient.[facility] RehabilitationIn the event this information is protected by the Federal Confidentiality of Alcohol and Drug Abuse Patient Records regulations: The Federal rules restrict any use of the information to criminally investigate or prosecute any alcohol or drug abuse patient.[facility] Reason for Visit (unrecogniz ed section and content) Reason Comments New Patient Reason Comments Obesity Reason Comments Anesthesia Consult Reason Comments Radiology XR Reason Onset Date Comments Patient Education 12/01/2021 Reassessment 12/01/2021 Reason Comments EKG Specialty Diagnoses / Procedures Referred By Contemmanuel t Referred To Contact [facility] Diagnoses Class 3 severe obesity with body mass index (BMI) of 50.0 to 59.9 in adult, unspecified obesity type, unspecified whether serious comorbidity present (HCC) Procedures ECG COMPLETE ECG ROUTINE ECG W/LEAST 12 LDS W/I&R Danny Cristina DO [address] [facility] [address] [place] [address] [facility] [place] [address] [place] [address] Referral ID Status Reason Start Date Expiration Date V isits Requested Visits Authorized [id number] Closed Auto-Generate d Referral 11/07/2021 11/07/2022 1 [...] December 01, 2023 End: December 01, 2023 Solder Cream Maker Relationship Specialty Start Date End Date Pcp, No PCP - General 10/27/21 Solder Cream Maker Relationship Specialty Start Date End Date Pcp, No PCP - General 10/27/21 Solder Cream Maker Relationship Specialty Start Date End Date Pcp, No PCP - General 10/27/21 Solder Cream Maker Relationship Specialty Start Date End Date Marco A Byrd MD [address] [place] [phone] PCP - General Family Practice 11/26/21 Solder Cream Maker Relationship Specialty Start Date End Date Marco A Byrd MD [address] [place] [facility] [address] PCP - General Family Practice 11/26/21 Solder Cream Maker Relationship Specialty Start Date End Date Marco A Byrd MD [address] [place] [facility] [address] PCP - General Family Practice 11/26/21 Solder Cream Maker Relationship Specialty Start Date End Date Marco A Byrd MD [address] [place] [facility] [address] PCP - General Family Practice 11/26/21 Solder Cream Maker Relationship Specialty Start Date End Date Marco A Byrd MD [address] [facility], [facility] PCP - General Family Practice 11/26/21 Solder Cream Maker Relationship Specialty Start Date End Date Marco A Byrd MD [address] [facility], [facility] PCP - General Family Practice 11/26/21 Solder Cream Maker Relationship Specialty Start Date End Date Marco A Byrd MD [address] [facility], [facility] PCP - General Family Practice 11/26/21 Team Status: Inactive Member Role Status Dates PHYSICIAN NO FAMILY Primary Care Provider Active Danis Tubbs , DO [facility] Attending Provider Active Solder Cream Maker Relationship Specialty Start Date End Date Marco A Byrd MD [address] [facility], [facility] PCP - General Family Medicine 11/26/21 Solder Cream Maker Relationship Specialty Start Date End Date Marco A Byrd MD [address] [place] [facility] [address] PCP - General Family Medicine 11/26/21 Solder Cream Maker Relationship Specialty Start Date End Date Marco A Byrd MD [address] [place] [facility] [address] PCP - General Family Medicine 11/26/21 Solder Cream Maker Relationship Specialty Start Date End Date Marco A Byrd MD [address] [place] [facility] [address] PCP - General Family Medicine 11/26/21 Solder Cream Maker Relationship Specialty Start Date End Date Marco A Byrd MD [address] [place] [facility] [address] PCP - General Family Medicine 11/26/21 Solder Cream Maker Relationship Specialty Start Date End Date Marco A Byrd MD [address] [facility] [address] PCP - General Family Medicine 11/26/21 Solder Cream Maker Relationship Specialty Start Date End Date Marco A Byrd MD [address] [facility] [address] PCP - General Family Medicine 11/26/21 Solder Cream Maker Relationship Specialty Start Date End Date Marco A Byrd MD [address] [facility] [address] PCP - General Family Medicine 11/26/21 Team Status: Inactive Member Role Status Dates Colby Peña Attending Provider Active Start: 2023 End: December 08, 2023 Goals (unrecognized section and content) Goals [...] BE BASED ON THE PRIMARY CLINICAL RECORDS. [facility] [employer] [facility]. provides no warranty or guarantee of the accuracy or completeness of information in this document.
[2023-12-29 15:20] LABS: Alanine Aminotransferase 35 U/L (14-59); Aspartate Amino Transferase 17 U/L (15-37); HCG Quantitative <1 mIU/mL
== END 2024-01-05 08:27 | disposition home or self-care (01) ==
LOC: LAB 14:21
PROVIDERS: Visit Provider Obstetrics & Gynecology
DX: Z09 Encounter for follow-up examination after completed treatment for conditions other than malignant neoplasm (principal); R74.8 Abnormal levels of other serum enzymes
CPT/HCPCS: 36415; 84450; 84460; 84702

== ENCOUNTER 2024-01-06 09:45 | Outpatient (RCR) | payer OTHER, SELFPAY ==
[2024-01-06 11:08] LABS: HCG Quantitative <1 mIU/mL
== END 2024-02-05 23:59 | disposition home or self-care (01) ==
LOC: LAB 09:45
PROVIDERS: Visit Provider Obstetrics & Gynecology
DX: Z09 Encounter for follow-up examination after completed treatment for conditions other than malignant neoplasm (principal)
CPT/HCPCS: 36415; 84702

== ENCOUNTER 2024-01-18 13:32 | Outpatient (REF) | payer OTHER, SELFPAY ==
[2024-01-18 13:58] LABS: Internal Control Within Normal Limits; SARS-CoV-2 Ag POSITIVE (NEGATIVE)
== END 2024-01-18 13:33 | disposition home or self-care (01) ==
LOC: LAB 13:32
PROVIDERS: PCP Family Medicine; Visit Provider Nurse Practitioner Family
DX: B34.9 Viral infection, unspecified (principal)
CPT/HCPCS: 87811

== ENCOUNTER 2024-02-16 06:44 | Outpatient (RCR) | payer OTHER, SELFPAY ==
[2024-02-16 07:55] LABS: Alanine Aminotransferase 26 U/L (14-59); Aspartate Amino Transferase 13 U/L (15-37)
[2024-02-16 07:58] LABS: HCG Quantitative 20247 mIU/mL
[2024-02-18 16:59] LABS: HCG Quantitative 26736 mIU/mL
== END 2024-03-06 23:59 | disposition home or self-care (01) ==
LOC: LAB 06:44
PROVIDERS: PCP Family Medicine; Visit Provider Obstetrics & Gynecology
DX: R74.8 Abnormal levels of other serum enzymes (principal); Z09 Encounter for follow-up examination after completed treatment for conditions other than malignant neoplasm
CPT/HCPCS: 36415; 84450; 84460; 84702

== ENCOUNTER 2024-03-16 12:34 | Outpatient (OUT) | payer OTHER, SELFPAY ==
--- NOTE | 2024-03-16 12:37 | US_ITS ---
The [address] [address] Patient Name: TAWANNA SANTOS MRN: [id number] date: 1990 Sex: F Assigned Patient Location: [facility] Current Patient Location: Accession/Order Number: [id number] Exam Date: 03/16/2024 12:38 Report Date: 03/17/2024 04:18 At the request of: EAGLE MA Procedure: US OB transvaginal EXAMINATION: US OB transvaginal HISTORY: MISSED MENSES COMPARISON: No relevant comparison available. FINDINGS: GESTATIONAL SAC: Present and normal appearing. YOLK SAC: Absent POLE: Present and normal appearing. CARDIAC: Present. UTERUS: Normal size and appearance. OVARIES: Right: Not seen. Left: Normal. CERVIX: 4.7 cm in length and closed. CUL-DE-SAC: Normal. OTHER: Isoechoic soft tissue adjacent to abdominal wall suspected to represent abdominal contents which has not yet returned into the abdomen. AGE BY LMP: 9 weeks 2 days GILSON BY LMP: 07/08/2024 AGE BY US CRL: 8 weeks 6 days GILSON BY US CRL: 07/11/2024 US/US OB transvaginal IMPRESSION: 1. Single live intrauterine . 2. Small soft tissue structures suspected adjacent the anterior abdominal wall; likely abdominal contents which have not yet returned abdomen. Follow-up recommended. Electronically authenticated by: NALLELY PABLO Date: 03/17/2024 04:18
--- OUTSIDE RECORDS SUMMARY | 2024-03-16 12:55 | XMS_ITS | CCD ---
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 of diabetes, and intervention by lifestyle modification may be beneficial. HgbA1c greater or equal to 6.5% is considered diagnostic of diabetes. Performed By: #### 2 4323-8, 3016-3, 86507-1, 80443-0 #### [facility] CLIA [id number] [address] [place], [place] [address] [place] [address] [place] Iron and Iron binding capaci [facility] 12-01-2021 Iron [Mass/Vol] 69 ug/dL Normal 41-186 [facility] Comment on above: Order Comment: Rangel zamora Type: BLOOD SPECIMEN Ordering Facility: [facility] Address: [address] [place] [address] Performed By: #### 2 4323-8, 3016-3, 60771-2, 32922-0 #### [facility] CLIA [id number] [address] [place] [address] [place] Iron binding capacity [Mass/Vol] 296 ug/dL Normal 232-386 [facility] Comment on above: Order Comment: Rangel zamora Type: BLOOD SPECIMEN Ordering Facility: [facility] Address: [address] Performed By: #### 2 4323-8, 3016-3, 53592-4, 68057-7 #### [facility] CLIA [id number] [address] OF [facility] Iron/TIBC [Molar ratio] 23.3 % Normal 15.0-57.0 [facility] Comment on above: Order Comment: Rangel zamora Type: BLOOD SPECIMEN Ordering Facility: [facility] Address: [address] [place] [address] Performed By: #### 2 4323-8, 3016-3, 79143-4, 66041-2 #### [facility] CLIA [id number] [address] [place] [address] [facility] [place] Lipid 1996 panelon 2 Cholesterol [Mass/Vol] 229 mg/dL High <200 [facility] Comment on above: Order Comment: Speci men Type: BLOOD SPECIMEN Ordering Facility: [facility] Address: [address] Result Comment: <200 mg/dL, Desirable 200-239 mg/dL, Borderline high >239 mg/dL, High Performed By: #### 2 4323-8, 3016-3, 47977-8, 97446-0 #### [facility] CLIA [id number] [address] [place], [place] [address] [place] [address] [place] Cholesterol in HDL [Mass/Vol] 39 mg/dL Low >39 [facility] Comment on above: Order Comment: [facility] Type: BLOOD SPECIMEN Ordering Facility: [facility] Address: [address] Result Comment: 40-5 9 mg/dL, Acceptable >59 mg/dL, High: Negative risk factor for coronary heart disease <40 mg/dL, Low: Positive risk factor for coronary heart disease Performed By: #### 2 4323-8, 3016-3, 23563-2, 30286-3 #### [facility] CLIA [id number] [address] [place] [address] [facility] Cholesterol in LDL [Mass/Vol] 155 mg/dL High <100 [facility] Comment on above: Order Comment: [facility] Type: BLOOD SPECIMEN Ordering Facility: [facility] Address: [address] Result Comment: <100 mg/dL, Optimal 100-129 mg/dL, Near optimal/above optimal 130-159 mg/dL, Borderline high 160-189 mg/dL, High >189 mg/dL, Very high Secondary prevention optimal LDL Cholesterol levels are recommended to be < 70 mg/dL Performed By: #### 2 4323-8, 3016-3, 53762-3, 63090-1 #### [facility] CLIA [id number] [address] [facility] [place] [address] [facility] [place] Cholesterol in LDL/Cholesterol in HDL [Mass ratio] 3.97 {ratio} High <2.54 [facility] Comment on above: Order Comment: Rangel zamora Type: BLOOD SPECIMEN Ordering Facility: [facility] Address: [address] [address] Result Comment: Refe rence: 1. National Cholesterol Education Program ATP III Guideline At-A-Glance Quick Desk Reference: National Heart, Lung, and Blood [place]. National Institutes of Health. 2001: NIH Publication No. 01-3305. 2. An International Atherosclerosis Society position paper: global recommendations for the management of dyslipidemia: executive summary, Atherosclerosis. 2014: 232(2):410-413. Performed By: #### 2 4323-8, 3016-3, 15953-3, 02320-0 #### [facility] CLIA [id number] [address] [facility] [place] [address] [place] Cholesterol in VLDL [Mass/Vol] 35 mg/dL High <30 [facility] Comment on above: Order Comment: Rangel zamora Type: BLOOD SPECIMEN Ordering Facility: [facility] Address: [address] [place] [address] Performed By: #### 2 4323-8, 3016-3, 17053-5, 54041-3 #### [facility] CLIA [id number] [address] [facility] [place] [address] [place] Cholesterol non HDL [Mass/Vol] 190 mg/dL High <130 [facility] Comment on above: Order Comment: Rangel zamora Type: BLOOD SPECIMEN Ordering Facility: [facility] Address: [address] [address] Result Comment: <130 mg/dL, Optimal 130-159 mg/dL, Near optimal/above optimal 160-189 mg/dL, Borderline high 190-219 mg/dL, High >219 mg/dL, Very high Secondary prevention optimal non HDL Cholesterol levels are recommended to be <100 mg/dL Performed By: #### 2 4323-8, 3016-3, 80388-3, 24792-3 #### [facility] CLIA [id number] [address] [place], [place] [address] [place] [address] OF [facility] Cholesterol.total/Tia sterol in HDL [Mass ratio] 5.87 {ratio} High <5.10 [facility] Comment on above: Order Comment: Speci men Type: BLOOD SPECIMEN Ordering Facility: [facility] Address: [address] [place] [address] Performed By: #### 2 4323-8, 3016-3, 66005-4, 26739-7 #### [facility] CLIA [id number] [address] OF [facility] FASTING TIME 12 hrs Normal [facility] Comment on above: Order Comment: Speci men Type: BLOOD SPECIMEN Ordering Facility: [facility] Address: [address] [place] [address] Performed By: #### 2 4323-8, 3016-3, 15250-6, 50382-0 #### [facility] CLIA [id number] [address] OF [facility] Triglyceride [Mass/Vol] 173 mg/dL High <150 [facility] Comment on above: Order Comment: Speci men Type: BLOOD SPECIMEN Ordering Facility: [facility] Address: [address] [place] [address] Result Comment: <150 mg/dL, Normal 150-199 mg/dL, Borderline high 200-499 mg/dL, High >499 mg/dL, Very high Performed By: #### 2 4323-8, 3016-3, 16632-9, 68162-2 #### [facility] CLIA [id number] [address] [place], [place] [address] [place] [address] [place] PTH-Intact SerPl-ncon 06-2 Parathyrin.intact [Mass/Vol] 42 pg/mL Normal 15-65 [facility] Comment on above: Order Comment: Speci men Type: BLOOD SPECIMEN Ordering Facility: [facility] Address: [address] [place], [place] [address] Performed By: #### 2 731-8 #### [facility] CLIA [id number] [address] [facility] [address] [id number] [place] TSH SerPl-aCncon 12-01-2021 TSH Qn 3.170 m[IU]/L Normal 0.270-4.200 [facility] Comment on above: Order Comment: Rangel zamora Type: BLOOD SPECIMEN Ordering Facility: [facility] Address: [address] [place], [place] [address] Result Comment: If t he patient is , TSH reference range varies by gestational period: First Trimester (weeks 9-12): 0.180-2.990 mIU/L Second Trimester: 0.110-3.980 mIU/L Third Trimester: 0.480-4.710 mIU/L Franco Callejas et al. A Practical Approach for the Verifications and Determination of Site- and Trimester-Specific Reference Intervals for Thyroid Function tests in . Thyroid, 2019:29:3:412-420. Varun E, et al. 2017 Guidelines of the Stateless Thyroid Association for the Diagnosis and Management of Thyroid Disease during and the . Thyroid, 2017:27:3:315-389. Performed By: #### 2 4323-8, 3016-3, 78131-3, 03288-5 #### [facility] CLIA [id number] [address] [facility] [place] [address] [place] VITAMIN B1 (THIAMINE), WHOLE BLOODon 12-01-2021 Thiamine (Bld) [Moles/Vol] 134.6 nmol/L Normal 84.3-213.3 [facility] Comment on above: Order Comment: Rangel zamora Type: BLOOD SPECIMEN Ordering Facility: [facility] Address: [address] [place] [address] Result Comment: This assay measures the concentration of thiamine diphosphate (TDP), the primary active form of vitamin B1. Approximately 90 percent of vitamin B1 present in whole blood is TDP. Thiamine and thiamine monophosphate, which comprise the remaining 10 percent, are not measured. This test was developed and its performance characteristics determined by [facility] [place] ([facility] It has not been cleared or approved by the FDA. [facility] is regulated under CLIA as qualified to perform high-complexity testing. This test is used for clinical purposes. It should not be regarded as investigational or for research. Performed By: #### B 1WB #### [facility] CLIA [id number] [address] [place], [place] [address] [address] [place] Vit [facility] Cobalamin (Vitamin B12) [Mass/Vol] 304 pg/mL Normal 232-1,245 [facility] Comment on above: Order Comment: Speci men Type: BLOOD SPECIMEN Ordering Facility: [facility] Address: [address] [place] [address] Performed By: #### 2 4323-8, 3016-3, 07922-8, 28796-0 #### [facility] CLIA [id number] [address] [facility]. [address] [place] No Panel Informationon 11-28 [facility] US ABD RIGHT UPPER QUADRANTo n [...] biliary ductal dilatation. The gallbladder is unremarkable. Program Project Manager: [facility] Transcribe Date/Time: Nov 28 2021 2:20P Dictated by : CJ QUINTERO MD This examination was interpreted and the report reviewed and electronically signed by: CJ QUINTERO MD on Nov 28 2021 2:21PM EST [id number] CN [facility] XR CHEST 2V FRONTAL/LATon XR CHEST [...] tissues: Unremarkable. IMPRESSION: No acute radiographic abnormality. Program Project Manager: [facility] Transcribe Date/Time: Nov 28 2021 1:32P Dictated by : KOMAL VINES MD This examination was interpreted and the report reviewed and electronically signed by: KOMAL VINES MD on Nov 28 2021 1:33PM EST [id number] CN [facility] ANES POSTPROC EVALon 022 ANES POSTPROC EVAL HNO ID: [id number] Author: Fannie Tanner MD Service: Anesthesiology Author Type: Physician Type: Anesthesia Postprocedure Evaluation Filed: 11/26/2021 3:12 PM Note Text: POST ANESTHESIA EVALUATION NOTE : 1990 Procedure Summary Date: 11/26/21 Room / Location: Procedures Anesthesia Start: 1315 Anesthesia Stop: 1328 Procedure: EGD DIAGNOSTIC Diagnosis: Pre-op exam (Heartburn) Scheduled Providers: Mulugeta Salmon MD; Fannie Tanner MD; Maria Alejandra Callejas APRN.PRODUCT SUPPORT ENGINEER Responsible Provider: Fannie Tanner MD Anesthesia [...] November 26, 2021 TIME: 3:12 PM CSN: [id number] [facility] ANES PRE-OPon 11-26-2021 ANES PRE-OP HNO ID: [id number] Author: Fannie Tanner MD Service: Anesthesiology Author Type: Physician Type: Anesthesia Preprocedure Evaluation Filed: 11/26/2021 12:27 PM Note Text: ANESTHESIOLOGY DAY OF SURGERY NOTE : 1990 Procedure Information Date/Time: 11/26/21 1245 Scheduled providers: Mulugeta Salmon MD; Fannie Tanner MD; Maria Alejandra Callejas APRN.PRODUCT SUPPORT ENGINEER Procedure: EGD DIAGNOSTIC Location: Procedures Estimated [...] November 26, 2021 TIME: 12:27 PM CSN: [id number] Normal [facility] EGD DIAGNOSTICon 11-26-2021 [facility] Upper GI endoscopyon 022 Upper GI endoscopy [facility] Gastrointestinal Endoscopy Patient Name: Funmilayo Conway [...] the physician, the nurse and the manager residential in the pre-procedure area in the endoscopy [...] previously scheduled. Procedure Code(s): --- Professional --- 05431, Esophagogastroduoden oscopy, flexible, transoral; diagnostic, including collection of specimen(s) by brushing or washing, when performed (separate procedure) Diagnosis Code(s): --- Professional --- K21.0, Gastro-esophageal reflux disease with esophagitis R12, Heartburn CPT copyright 2019 Stateless Medical Association. All rights reserved. The codes documented in this report are preliminary and upon railroad inspector review may be revised to meet current compliance requirements. Attending Participation: I personally performed the entire procedure. Scope In: 1:21:30 PM Scope Out: 1:24:29 PM MD Mulugeta Tony MD 11/26/2021 1:27:19 PM This report has been signed electronically by Mulugeta Salmon MD Number of Addenda: 0 Note Initiated On: 11/26/2021 1:06 PM Estimated Blood Loss: Estimated blood loss: none. Normal [facility] HISTORY PHYSICALon 2 HISTORY PHYSICAL HNO ID: [id number] Author: Maria T Lares APRN.CLINICAL NEUROPSYCHOLOGIST Service: ? Author Type: Nurse Practitioner Type: HANDP Filed: 11/12/2021 3:58 PM Note Text: HISTORY AND PHYSICAL EXAMINATION SERVICE DATE: 11/12/2021 SERVICE TIME: 3:26 PM PRIMARY CARE PHYSICIAN: No Pcp This is a virtual visit using Contact At Once! video visit. It required patient-provider interaction for [...] fevers. Neurological: No history of TIA's, stroke, CANCER PROGRAM CONSULTANT tumor, impaired sensorium, hemiplegia, paraplegia or quadraplegia. No neurological symptoms or problems. Respiratory: No history of current cough or dyspnea, or pneumonia in the past 6 weeks. No history of respiratory/pulmonar y symptoms or problems. Cardiovascular: No history of HTN requiring medication, no history of angina, CHF, OK, cardiac surgery or stents. Denies rest pain, [...] > 1 time per night or hematuria. WEIGHT TRAINER: Negative for abnormal vaginal bleeding, abnormal vaginal [...] results with (more content not included)... Normal [facility] COVID Quick Testingon 2021 Result Negative 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 Other Quick Strepon 10-27-2021 S. pyogenes Org specific cx Ql (Throat) Negative [facility] Other Quick Strep 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 Other Consent for Procedure/Surger yon 08-05-2021 Consent for Procedure/Surgery [id number] #1.00CD:127 Normal [facility] Ambulatory Visit Summaryon 0 08-04-2021 Ambulatory Visit Summary FUNMILAYO CONWAY :1990 Visit Date:08/04/2021 Ambulatory Visit Instructions Your Care Team Attending Physician - EDY JOYCE, Elmira Infante Primary Care Physician - Marco A Byrd MD Referring Physician - Marco A Byrd MD [...] you are no longer receiving treatment for. [facility] Physician Referralon 022 Physician Referral [id number] #1.00CD:127 Normal [facility] Physician Referral [id number] #1.00CD:127 Normal [facility] Covid-19 PCR (CVDTB)on 06-08 SARS-CoV-2 (COVID-19) RNA JONH+probe Ql (Unsp spec) Not detected Normal NOT DETECTED [facility] Comment on above: Result Comment: This test is not yet approved or cleared by the [place] FDA. When there are no FDA-approved or cleared tests available, and other criteria are met, FDA can make tests available under an emergency access mechanism called an Emergency Use Authorization (EUA). The EUA for this test is supported by the [employer] [place] of Health and Human Service's (HHS's) declaration [...] SARS-CoV-2. Performed By: #### C VDTB #### [facility] [address] [place] [address] Dr. Kerri Roberto Covid-19 PCR ([facility])on SARS-CoV-2 (COVID-19) RNA JONH+probe Ql (Unsp spec) Not detected Normal NOT DETECTED [facility] Comment on above: Result Comment: This test is not yet approved or cleared by the [place] FDA. When there are no FDA-approved or cleared tests available, and other criteria are met, FDA can make tests available under an emergency access mechanism called an Emergency Use Authorization (EUA). The EUA for this test is supported by the [place] of Health and Human Service's (HHS's) declaration [...] SARS-CoV-2. Performed By: #### C VDTB #### [facility] [address] [place] [address] Dr. Kerri Roberto Coding Summary.on 12-26-2020 Coding Summary. CD:[id number] Gh0bWw+PGhlYWQ+PE1FV JGxR88nnFDtoQ4SP1dPT D6XIWMOYVSTQG5SMY3kx BQ0DDmeZ0PxnhYr NfpkqBGaRE39RUw2PLM0 iCsoOOfvaZ2qyETwJ2s8 RdLaET45sZ25RUquAJXm UnS4FvPkcoppaKMb X9yaCuCqpYGxLqg+PHRh YmxlIHdpZHRoPScxMDAl AxCahIhaTT3cWo1gSBHh LWNvbGxhcHNlOiBj o8znXANiHAjoFL9wbMfp G3NezKB2TAGoc6o6Kv42 dHI+IEZeIDG9vNjiTAfz n629WiNek6qoEAB8 gBEpZZpaOOR7X03zr8R0 NEPgYZBvDTN5uSR7sY9f xFtflwveH3TreEFnEzV6 OBV5jGTnfD8cpFpr xuexoG6lYfk+L16ZKG6U UOMOML1CZas6I4ZoXcsh dHI+AL18DRHsHT83qCPk bESjd1ugxCm5RhEk ZJFpMPH3lEstVOggf9Rw KVZmS51bwHQpc8T3MKHh mMvdxNXpUtNreIQ4zD1f YYgbnyuis9tnkfhc Owxxi7mxhf79yB57M13d ZQmgEYRgDBX6GBIkEIZb uJkdqk7keA9kQs9+IDxj c2jsf0owmDe8XuRu OXBoymLrbNqhNGM4l8Jx We07P2FjgIfzz3TyOiy8 fs29jUAqu2B1kTK2SEtk MGEnzO9wERipFaO3 VBSfVyLdzX67fWEnIEcf Fn4qlKmqmLtiCZ6mHWWo beeqUTTirD9nWOBnvVVr wQztLR9qAXBoknuu o352LmZcTQT5DOUhyGCe Y0VeiM4oEuIkEVHlVCNf S5MmjMPkGMpiT631SRgo ElX5IWXkysBsA3Ct UZEymHikOxN8b1O2Oz0T h4RvmnrhTEX4AGflOXP1 ViTyQqZfSgK2K0DpKso6 LGZpjDfoDW9dS5Vl CXAygghfllowiRG0JBBz VMTsjH28rRHfRGsxNn5q n9V7u236KWXmZULqiF24 Uj3cfQynKLXkoOTC qZ7kfsfwp3bmmhyzFrTk UEZzOWg9CUx2VZAhfXsz WnQoHNE2CyC6HHR6tCHu jQ0czRydmrchuN5q Oyc+X46jvM3rMFF8AXB9 mrbcSTYqycYcTW75PU96 I8ZqTzxjlMBvcJD+PGRp tyFfhArtXY0qTfPt l1lgi6QmLKsrG9MmWZHy NJdkOtz5TORgXZU6aAE3 eY9hIIBrXXvgg9I1zPN3 Y8DbloZwug7ut1vp KWCgAXbdQ11asPHzz1R5 TQFogUN4NUPbpNjvEjHh kF64Kuq+UMYucOspy8Xe Sgkis1rtq6ghtLp1 IjMwJSIgdmFsaWduPSJ0 a3LyGj23U20aTCqvNWFc AVVyISZaHGWchApxth1w hR9bDz5+PGNvbCB3 pNL3nV0lITBbRdX8KNya Q105KlCyqJFkLqbmw1uq q6thyUs5YtMbRLYgxpYh wIuhKVA6a3AvTy32 N61wOVtrULZmWSWcWWBq WWOsqQfmua8osB2wEo4+ ST4ct0egmq13zW55lQE+ WQDzDGZ8wLvnJSih FASxrJ6pXIviIuR6FIBg SpMtwL07jGLnCCenXp7n pWlwdWsrZD9rJBWkwatv u332MqRhx4cvMMHs mJNpHNklQFH6P56vg3W9 RUWePLZuOXA2oVN0kO5e bGlnbjogbGVmdDsgdmVy uTxfWYpgQNasH602 IHRvcDsnPlBhdGllbnQg LqUrFIn2H9TtJsd6NAAy tGacVP6knGYyDAkvQx2z eKhcqQhcGI4hRXFg bfxbu246WoSow6ymUBMz lMCgLUofKKU4C37or2S9 FZTyZGYqYDJ9nQN5bO7d bGlnbjogbGVmdDsg ouJxySdxCNktDKhxK149 IHRvcDsnPkJpcnRoIERh iRV3GC35MW97xYIdr5O9 lPW5R6QiPSDfikvg godtfVL3VIQnOFYghL02 Cw2ytKmoDk2mHLZhGEP1 VBCavTTfY2IuyC8dDxLs AIPjNLJzH0DrgBKg WPesY213LJvnXiX7RWCm qnBqT3NkJIAjrTfeIbS8 r4U3Dt5CA4D2DV05XX07 xEJbg9R2wXN1V2Sa KZCgyyaqrfcgtUE5ZDDc BXPtlD74Jn5skQzbZq1o LNYiPET6PNEvgTJrE1Gi xA9oJuSrDXNoFTZr R5ByuWAcQYpuY348PNks ZpG4LQLhrwOxN6VvYOKo sWfcQcQ6c5D4Ej0YELt8 NR07KG52cTUym2T8 rEZ3A6AtYWNnqdgaulfz wTM8JJBrMEVbrW84Vi4o wLfpWf9tPKTyQRC6VCJn cXKeZ9KmrP4xShFt DRQcCRDpL5HxkSTnRAjm Z298HRthJvP7BOBlmbZl R4YwUDQbyQuuXuN2f2E5 Sv2SFCVeIA90TAK6 yPA7IF17CL52T9AjTnyn dGFibGU+PHRhYmxlIHdp ZHRoPScxMDAlJyBzdHls UK9rKo7iCEKxLAXo cByuzBNlIzTxf8sqWXTn BJtuIY8dxCkwI8ZkfUC1 FXHqc0k7Bi07X32vH8Ii dXA+UMBbyJO0qIY2 fF1rDxNjToZ7DUvsC746 CyFrjEFpXqhpu4ubj7ln eBd7MiO8VBImhhGinZxp GIK1y3VoKp17N73r IHdpZHRoPSIxNSUiIHZh aJavqi4zpO9mXl8+PGNv pZY2gDL6vG3eLhUtPoT0 LPfnQ434EpPjcGBo Kgwjj8ptt1tjwEw3XmWk JCQiwrAigKsuMUL1w7Qa Bd74E9DugVyiq5XxMne8 ak83nBCjj1O9vTH8 Q0QfRPLygdktvSFweLhz IC5dYTArslqrQKAhhA4r NGYaB3r0QdJlIbS2DTeo K9CadjN1UVIdeYKu STuwXGP1C96bh6P3ZLAa DHHgMVG0zPG4cL7ivDny bjogbGVmdDsgdmVydGlj VNgkUQgoD693VBEa iHjwKLCrhN7uGPMwlZDn kXvbCF6tLHGktgmrWioE BsVTYpdfTgIZESKQJJ24 UI61mQDmg3G2pLX1 C0MkBORfrvkufkbzhAM7 ZHZvSCLfqF44jKZjCEzb Up8of4E9e177EGClDZEf hK72Vp6evPzwUARl fMIMzJ1tpdxft7etlngc JcFiZACtJUi8ECc6STYo vBvaKaQdUEL2BkE6OXV4 uFGpvO9uvJigklxw tR7vTpm+MTEvMTQvMTk4 OTwvdGQ+GZKjKGM7lXay SEfpJZIrvJ0gQUYbE7f6 YwKsGiB3ZLuyR9Vx OPZrbucjYk09sU7bTnGr ToP8CHbhU8CifgI9TVDu aQIhJOahAGF6Q63xi3J6 GWKxWYWzSMA7eGW1 tV8rrKpiljxzgBKqkCsv tuSkqKtbAEitKIzgY608 IHRvcDsnPjMxIFllYXJz RB83TI35dULol0O0 wLP3V2OeGQLjpuvegskw oER2XLXkLJNrxF95lRUn VGjaEv6yn2V1u235GYSt VPVbuF80Ea1nnQax ZRIkmMUWwG1xybtpl8nw xfckBfXxCRUiCLh0LCw9 TCAeeSxnArGhJJN7CuY4 XNR7vYAvsD3aaSgi xfsupO4lBnj+RmVtYWxl EY78AG68mVSbd2A8rBG1 B8NvHSTbogvyabpqcZY6 CZQzIQXrlV53qGYf FSirDt8qq8O2d812NGUv WYLbnO06St0kjNqxSMYh zONUzQ0qjsvgm9jgileu HeHiDMZiRLm2MIa5 RFGhdSsqNhUaYVH6HpL8 HEY8kNTafZ4wfBtxkqmm pU4xEvv+Z6OuYEE8GAId y695P7EwVdxhaXW+ SS03TOVxYO86aHIevFCf i8wypMe2LyBzQQYbHJA3 sVwiBZcgg7UgSHSaE40d fYXcf6J6DYTxiBsf iPNzXfZawAQ1pB6rJPgk oqkov6zlsnttKeffh1qe cc35rL52O84kBXdcHJEf PSIzMCUiIHZhbGln hx9tiR4sUe1+PGNvbCB3 nJE0rL3aYkFmLfC6ZAmm M925ZxZxiGAbYmkds5mx q3mmvVe7RaKsCTRc liAxcFcqVVS8k2ZgWo81 U56rWPhvXIZsKSEaOCMv CTVruGxkxg0lrS8qFd6+ HQ5jd4pgua90aA88 dHI+ETPoJJI8uThrDScx XXTflA5xEAmtLbL7PHJd AqYcrK79qVYvMNecUg8a lPyjgCzlYB0hUTUq ieusz225XvIyr6svIKPu lQMjHCwmCSR1O28ee3M9 TQVfHLEdBIU2rFE1aG9o bGlnbjogbGVmdDsg muVpiYigVFxtQLbqB567 KZZgvNaoQyNeyIZeM9wh ebWYGG5wBxsbzMY+PHRk CGG5lZmiEMgwUQZf mT3vHWXbM4u7XiUxKgS2 TZnpK6EfaiR9YPAsyOMi ISWywWLHtL3lotwfv1to cjogIzAwMDAwMDt0 QAu6AYUajZziLuZdFDB9 AwI3LJG7mKTmtO8dsFic esmgfA9dVik+RklOOjwv dGQ+GHGiPCG6tMvd IJabDLQmgJ0sBYLdO1m0 KuMiZyA7UBzgN9KpdyE9 VPJtoCFeTELxuIOXrV3s qihnl6cxgbhbNqMl LTHcZPl1SOg3LGAewVhj UbErBOG4VgE4GKE3mLOy tE1lwIesurlixV9rPec+ TVJOOjwvdGQ+PHRk OMD6iMqaJByfQJVowJ0i ZNXsG0q5DiTtBbZ2GCfb Q5NytjP6BAYlgHGyXYDq vVIOiV9xzevac5kw xjecUlDpHSTkNUg3NYk8 YGPqyKteVlClTTA6KpO1 PTZ1qGAadM8vnJrylnws tO9cHca+IRX1ZMH5 CB90AY17I0LnLbtezXSk bGU+PHRhYmxlIHdpZHRo ODacZGIcBbWziZecYL6e Fe5pZQKzYYMkaGxe cHNl (more content not included)... Normal [facility] Coding Summary.on 12-24-2020 Coding Summary. CD:[id number]:[id number] Gh0bWw+PGhlYWQ+PE1FV OWmZ67dgYGecX7OE7bYF J0IPSBHJUTYSH8GOP7ad BL7CCdfC2EhgqFy RnzgnIRySB64AJu6SGZ2 zUtiOLsrlU0isJTxT9l6 ZoZiRT72mI31YCtyKJVn VhM6OeJdlejxvWWx A7ccGxPjkZLbBif+PHRh YmxlIHdpZHRoPScxMDAl KlSfuRriVZ5wDk4yINDu LWNvbGxhcHNlOiBj q4pxWTFbEKojKM4ktRfi O0IfkHS1IZOun1r9Jm99 dHI+IRYnDCD2uDhtQTrb v869NuJzw6uaJHX9 sXIwKPzwFQM0X97gh4Q7 DNGsMIEmOQA3vOP4wD4x kFfmtbfzF5JhfKBzNnQ9 YXK9nPUvhX1owRsi rznjyJ6lVbd+Q42RAQ0F DTFUFZ7YGal1E3PgAzcf dHI+NV76EMLeGP96uWRl fOXrj4ugvHr6TjEh UGNhDJW4wVdxYOmyp6Oa NCAnW36njGCrp2I0PWOk tEnphFYaFhBzvJK2gA5e NUaaizikx4dtaobt Qiawl9uppt91iO15U67y UUsqFWRvOHN5KVWfFNTi yKajvn5auN6mOi3+IDxj t5lyz2elsVi0MoGk TRBlvmEdjEypSYD2m4Az Da86E9PahYhhy0OrAzc3 sm92oPQjq9V4aDX5GDyd UFXehY8gDRwiEzY9 XRIlZjBojC14fVUmWZvp De7kyZzsbRwzEI5vHAKp uytvJAMknU9qUWMtjWZa lOvdUL8uNBCiblxp v738VwCxQJN8DDVgxLRf M1NsfO9iOkTcCIJcHTUg M5ToxMLsKZerD474HNjb RcW2KHKfisRoN8Wx PBAxuAjhCdF7h9H4Pl6C i7OaeyhcVHY0ATfqKVR0 IfVxXlVhZnJ8X3RnBhc3 FLCcmBhzXZ4nU5Tk FXSaeefmhzgwxOM9XRCq DEEsqP88dRItINyePi7f p0P4c152XLUfEOQzlA03 Hf9rtSedDYMvjSKV cV5fjfrkv3dtuiytWdCy XLBzTAs9EFj2SHMdoHpo InEbPEG9MdX6SMM0nFJu wP5qiTgfulufiN2n Oyc+A00suW3zOWG4OSV9 cvsuUOYxibHlKM01TH53 Y1YtDnmswFEgpKD+PGRp qgTflIojPV1gWhOt o2vpd9VfBXkzT6XcGGLi ZXosObc3JEWaKBF4sQY1 aJ4lDNWqZStwp3T9lEW3 D3XkgjHsfe0lk4lk AIVxHFaxL32omDEgj8D7 PEVorUD6ABWuiYhvCsYu uO14Ejl+LIRntGqsx9Ke Ffsga6aao8mofZa4 IjMwJSIgdmFsaWduPSJ0 m9JzUk65Q29pNJzkIWAr RCXlGOBtPGPgpPukak9e kC6kGn9+PGNvbCB3 uZU5pF2hGIUsMfN5QPtl A700KcJnfQTdHbtxb3kc d2gwqFt4ZoLwZQWoixYd bVgxYLR0w1HzBo00 S19qYPpbHXSeHWSzHDPb ULHduMeooi9kdV5sVf3+ LA3qv6lqqo12rB21fYF+ FUBuLXU5mVwnGZjq QWPpqJ3sDMrbKbS9BQYk ToAfxX10jQGiMKdlCh1j oFqdrKhiPP2cPQOuwlou o484BeDog9byXDGy bBZqMEjaTYV3P66or5B7 GARyHTOoPGC8zAF6oQ8e bGlnbjogbGVmdDsgdmVy qTewOBhsKWrgP104 IHRvcDsnPlBhdGllbnQg XkXxQLe4Y5FpYic0YVTs mVtgZX6dvMPiCXahOc7z qArhsGcaAA5yFTDh eycds445QjWlw9rzJHKs iVPoXDkaWBC3E86gs0Q6 BQIrHMMtVBN0gUJ7wR5z bGlnbjogbGVmdDsg suPlgJylCRtlHIlfC623 IHRvcDsnPkJpcnRoIERh rGH8WI87YC99sHAof0D3 dJW3A3WnGPVceyki tkakxLG8LFEnOPOrbO35 Xe8txErfHc2gCLOiEJW0 QMEpqNLlN3GnjC5oTuBd WSEpKTAsE3ZytMFv KZhvG571OUhsCxO1IKSh tkQjJ5WiVYXetKetCzW1 v4Z1Pu5UG8A0TA54EZ20 aFBqg1Q1qPN8E2Jh FVSontqtrjvamBD7ZKXd VEBktT05Zy5wtSouLu9m QSKhTOD0BTHhhEAyN7Vp tH1sNlTcCELcUTQz Q0ZayOOeGBynN193THmv FoZ9QGLmdlFzB3OiGVOw bFoxOnR0m1W7Dz7HDJl8 FG33CX76lUZri3O9 kPN1X1AaOQErxjjtsnlj qKW1JZUfTXLrqG14Ot0j xLnbWh9mRBYxSYD2BMAg zFHzW3IvwF5dJlUq FXYlYIBvZ4PdzHGxADte Y981OMqcUiI7TOGnxuAv Q1WeAUGhbFvcYuD2x0R6 Tn2YTLCwEZ45UNP0 aOF1WD89KZ54R2TgIjkn dGFibGU+PHRhYmxlIHdp ZHRoPScxMDAlJyBzdHls CU0eCy4zEXPwVSAj wHjxyEAsFnXnk4xjUHMo UAtsGC1bjEaqM7TelHC1 CNPkx9c8Od57A56eB0Dc dXA+TLOkoHL2dEL5 qX2sLwBxBbF6STlmN762 NaTgmFPfPxsqk0qhh9mg rJt4CjE9GUBxubPvqDln LSY8s7VvZz10T50u IHdpZHRoPSIxNSUiIHZh sBmtcw3eoA9lLu2+PGNv hZM8wXT6lQ7pWkPgJmW9 EZcfI706CqMqqRDq Sfqzn0aqn0qhjRg3VhSk XOOinbOabCweGAI2t4Pe Gx48N0NuqBmkr5KyWhv3 rl46jGIpj6F6cHF6 W9DyOBPtpbzdgHWqxAdn WH4nMDVvfmtyKHHqwC7o HZMtU9t9DeOzPjP6RCwc T3JtycE1BJNqxQNl LMltBHZ8N11aj7E3AQIr ZGDkULK8uQI6sF1egPzt bjogbGVmdDsgdmVydGlj LYaqDYwcE365OZTx lKnpOGBxpR9nCAFdwOJw hRckUQ9oYMQvymxdIulY ZtGTZzdbWxKHVFTRRI01 FQ46rEWri1C1kPC4 T4SsXWEyjbmfpqagnEW9 QJDpEHJlrR03pNYxEXfi Zh9gs5M7x542KAAsDDMo hB60Sl5awKcoPXCk eBKIfX1rqozfi1xrvzjm RpCvQRTiHFv3MIb2EQCh wWhjKeOuMIP3UyE6QPB9 tCAduD2neQtwaiyw iU8oBee+MTEvMTQvMTk4 OTwvdGQ+VXEhDNQ1oYbj WVbwSNXrdK2dFRLfN0e8 LvEkMyG1YJeqT2Rd YVUkrhniBj79nB7cUdCa KlQ9UJlxD2DnohY8DUUr oEXjEIxxXAM3G92mg6R1 NCLdGLKzJFO9qGK6 pV8mgNibwyejaQUjcUfe htAyqPmnUYlaJGmaW078 IHRvcDsnPjMxIFllYXJz WU57QQ42lHIga0S5 qNP2W3WpZIGfvadkblxa sIZ4NARaQIElxN01zFNg LHpbWi4gz9X1b016QPIp PHZjgL12Kt9uaMon TYSfnCWAjE2ydndht5yu qgjtCwYeERYdTLf1RHb3 YYRnnYahBiHnAAS6EgA0 HAX6wQAvcZ9lgDbz dqcouI1iTvv+RmVtYWxl TD05FB26aDCrm6N9jGT8 F8HmLJAuaaldejjhrOG5 JRByPRRdxH73jEBd FWgwMt6cm3C7o133XHBd QPAzxJ23Vr5sbUsyXKOq pBOKkO1odcwzi3glgjmz RfCrKUAsVBb5PIy3 VLFovDdyKsRfBUZ3JkZ3 EGQ8aQIpjL4hpEzqxfvh jJ7vGtz+AX1hbpqfitL4 RU78MV27P3BpPpne dGFibGU+PHRhYmxlIHdp ZHRoPScxMDAlJyBzdHls BG9eOg3fOOXmFXTveKta mVHdLrNvu6ynADOv KUivSC9ezHukC7TxhRI4 IRPve9p0Xd94A28sR6Qw dXA+GPPutIV2yIW7qQ1f HuKmEyB3YOruW743 XrEzyZMsCxnlk8zda4ve pXn2EiYiJHXgebXacXio JKM2k8PtHn63O33pCIwm ZHRoPSIyMCUiIHZh iHilmh2mqR6kQh2+PGNv nQA0cAR0xP4hBhBfOmE4 AXsaD195CeHpbQOgKorw L00wP6LxqXE+PHRy Zeg2IPRayKdwAZ1ghGVy QRpeRh9iHQE2JzQzTwSw YPweE7GtBQHqnamwioys vBN5ZCCmEWYrkI25 Bu8exClvWo5wHIJnYKD1 WLBjsSBkW9OtdA1dJfHx YWKoYWScU3XegSWuNQht C930XPfqMqB2HLLf eiRqV9WvRYYxhZmpInY0 p4T0Os6MdGqqqTKjEY4j FcZkLDt4N1PwZpx8MCKu cKerMM4aeNNaEVug By8rdNiioSjfYA6yRFIw ltcoc522GbLdw8qeYWIm nTCjJRzyJVM3R60au2U7 LYFhKHAgYLE3kIR2 mS8uqMjkrdcjeNLrxSlb xsOvuEgjOJxvUTduL840 VZChtReoEuSBGwr8J6Hi Crt6UGOqaSeqCU3v mSRmLVwuCl3qsVoxgEai JV4mOJQhckqxz712QpQi k3xlFDTvkSJqNDgjTCN5 Y78vr4H1SXJuRSFq QWH0bBA0eM1tmPyysbmv bGVmdDsgdmVydGljYWwt OYhbR397QZSooHrwPz1F Rwz3Z8KzGrp3PRVc bRfmIL8ttDAtNXfoOb1v dNbckLruZE4xOHIiosyn s845MnMkp4jnQBCyzUOj BAvaYLA8E90xd9K2 FVNvXLUeTNH0jQO4nJ1o bGlnbjogbGVmdDsgdmVy hGmkLVsbQWkmT028XAEs cDsnPlBheWVyOjwv dGQ+LE98lu03H4XbSjdj Dnp0IVZjHSI9zWY2hE6m PVNpPBnwe5D8qND5N2Ci kqEbox5pw5zxPHPv ZTog (more content not included)... Normal [facility] C Urineon 12-20-2020 Bacteria identified Cx [...] Locations R1: This test was performed at: [facility], [address] [place] [address], [facility] , , [facility] Comment on above: Performed By: #### 1 [id number] ####[facility] [address] [place] [address] Discharge Instructionson Discharge Instructions [id number] 107 [id number] 1#1.00CD:127 Normal [facility] ED Note-Physicianon 12-21-19 ED Note-Physician care transferred at change of shift. CT pending. CT returned without acute findings. Patient accepted for admission for pain control Impression: flank pain Normal [facility] Comment on above: Result Comment: Elec tronically Signed By: Yevgeniy JOYCE, Salvador\.br\Date and Time Signed: 12/19/20 23:07 EDT Inpatient Clinical Summaryon 12-20-2020 Inpatient Clinical Summary [place] [id number] Clinical Summary Person Information: Name: FUNMILAYO CONWAY Age: 30 Years : 1990 Sex: Female PCP: Maki VELA PA-C Marital Status: Phone: [phone] Race: White Ethnicity: Non- or Language: Kosovan Visit Id: Visit Reason: Vomiting; Back pain; Headache; VOMITTING; HEADACHE Speciality: Acuity: Enc Type: Observation Med Service: Medical Arrival: 12/19/2020 16:38:33 Discharge: Dispo Type: Admitted as IP to this Hosp Address: [address] [place] [address] [id number] Provider Notes: Diagnosis: 1:Myalgia; 2:Headache; 3:Left flank [...] Follow up: With: Address: When: Maki VELA [address] [place] [id number] [employer] (1) 12/26/2020 8:30 AM Patient Education Information: Viral Illness, Adult Normal [facility] Inpatient Patient Summaryon 12-20-2020 Inpatient Patient Summary [address] [address] Patient Discharge Instructions PERSON INFORMATION Name: FUNMILAYO [...] hydrated with water Take tylenol prn for [facility] Primary Care Physician to provide the following pending test results: Follow up: With: Address: When: Maki VELA [address] [place] [place] [address] [employer] (1) 12/26/2020 8:30 AM In the event that this physician does not participate in your insurance network, please consult with your insurance company to find a nearby participating provider. Comment: IZORAIDA JANE A, have received the attached patient [...] infected with (more content not included)... Normal [facility] Procalcitoninon 12-20-2020 Procalcitonin .05 ng/mL Normal .00-.50 [facility] Comment on above: Result Comment: <0.5 [...] to 24 hours. Performed By: #### 2 [id number] #### [facility] [address] [place] [address] XR Chest Single Viewon 12-20 XR Chest [...] M.D. Transcribed by: LILY Technologist: GLEN Bates [facility] Auto Diffon 12-19-2020 Basophils/100 WBC (Bld) 0.7 % Normal 0.0-2.0 [facility] Comment on above: Order Comment: Order Added by Discern Expert. Performed By: #### 2 [id number] #### [facility] [address] [place] [address] Basophils/Leukocytes Auto (Bld) [Pure # fraction] 0.1 E9/L Normal 0.0-0.2 [facility] Comment on above: Order Comment: Order Added by Discern Expert. Performed By: #### 2 [id number] #### [facility] [address] [place] [address] Eosinophils/100 WBC (Bld) 0.6 % Normal 0.0-8.0 [facility] Comment on above: Order Comment: Order Added by Discern Expert. Performed By: #### 2 348857, 2052843, 6464123, 49307244, 0901851, 3197522 #### [facility] [address] [place] [address] Eosinophils/Leukocytes Auto (Bld) [Pure # fraction] 0.1 E9/L Normal 0.0-0.5 [facility] Comment on above: Order Comment: Order Added by Discern Expert. Performed By: #### 2 293618, 3683481, 5865060, 82569535, 8805923, 8030934 #### [facility] [address] [place] [address] Lymphocytes/100 WBC (Bld) 29.4 % Normal 14.0-50.0 [facility] Comment on above: Order Comment: Order Added by Discern Expert. Performed By: #### 2 547429, 6519616, 2708911, 85877244, 8626381, 8504898 #### [facility] [address] [place] [address] Lymphocytes/Leukocytes Auto (Bld) [Pure # fraction] 2.5 E9/L Normal 1.0-4.0 [facility] Comment on above: Order Comment: Order Added by Andrea Expert. Performed By: #### 2 717100, 3043574, 7045709, 47143055, 1492512, 0088212 #### [facility] [address] [place] [address] Monocytes/100 WBC (Bld) 7.8 % Normal 4.0-14.0 [facility] Comment on above: Order Comment: Order Added by Andrea Expert. Performed By: #### 2 997281, 9709728, 0494466, 38261899, 2238983, 2832880 #### [facility] [address] [place] [address] Monocytes/Leukocytes Auto (Bld) [Pure # fraction] 0.7 E9/L Normal 0.2-1.0 [facility] Comment on above: Order Comment: Order Added by Andrea Expert. Performed By: #### 2 567761, 1735777, 3502614, 37243633, 4913618, 4059229 #### [facility] [address] [place] [address] Neutrophils/100 WBC (Bld) 61.5 % Normal 36.0-75.0 [facility] Comment on above: Order Comment: Order Added by Discern Expert. Performed By: #### 2 221906, 3793472, 2791515, 38694772, 0877525, 4153568 #### [facility] [address] [place] [address] Neutrophils/Leukocytes Auto (Bld) [Pure # fraction] 5.1 E9/L Normal 2.0-7.5 [facility] Comment on above: Order Comment: Order Added by Discern Expert. Performed By: #### 2 485176, 6414618, 5667819, 01178528, 8190569, 8783497 #### [facility] [address] [place] [address] CBC w/ Auto Diffon Erythrocyte distribution width (RBC) [Ratio] 12.7 % Normal 10.9-14.2 [facility] Comment on above: Performed By: #### 2 999033, 2455752, 6100708, 48690860, 6224142, 7530150 #### [facility] [address] [place] [address] Hematocrit (Bld) [Volume fraction] 41.2 % Normal 34.0-46.0 [facility] Comment on above: Performed By: #### 2 761984, 9074343, 4863096, 18364184, 6233242, 5260526 #### [facility] [address] [place] [address] Hemoglobin (Bld) [Mass/Vol] 13.8 g/dL Normal 12.0-16.0 [facility] Comment on above: Performed By: #### 2 512460, 3548209, 0308720, 41968107, 8573137, 8647918 #### [facility] [address] [place] [address] MCH (RBC) [Entitic mass] 29.6 pg Normal 27.0-34.0 [facility] Comment on above: Performed By: #### 2 949254, 4252598, 6618402, 68130038, 2763111, 5564628 #### [facility] [address] [place] [address] MCHC (RBC) [Mass/Vol] 33.5 g/dL Normal 31.4-36.0 [facility] Comment on above: Performed By: #### 2 957876, 0869711, 7081799, 38614114, 6791306, 3689073 #### [facility] [address] [place] [address] MCV (RBC) [Entitic vol] 88.3 fL Normal 80.0-100.0 [facility] Comment on above: Performed By: #### 2 540425, 2956052, 6387658, 76065805, 9051026, 6163836 #### [facility] [address] [place] [address] Platelet mean volume (Bld) [Entitic vol] 8.3 fL Normal 6.4-10.8 [facility] Comment on above: Performed By: #### 2 872147, 7579001, 0070005, 71192907, 5172640, 1719763 #### [facility] [address] [place] [address] Platelets (Bld) [#/Vol] 188.0 E9/L Normal 150.0-500.0 [facility] Comment on above: Performed By: #### 2 029887, 5680513, 0600520, 98374561, 3544270, 0807809 #### [facility] [address] [place] [address] RBC (Bld) [#/Vol] 4.7 E12/L Normal 4.3-5.9 [facility] Comment on above: Performed By: #### 2 001762, 0439875, 7666691, 47169534, 6860737, 8309862 #### [facility] [address] [place] [address] WBC corrected for nucl RBC Auto (Bld) [#/Vol] 8.4 E9/L Normal 4.0-11.[address] [facility] Comment on above: Performed By: #### 2 719182, 9823920, 0217194, 50686453, 5602495, 0713817 #### [facility] [address] [place] [address] CMPon 12-19-2020 Albumin [Mass/Vol] 4.2 g/dL Normal 3.3-5.0 [facility] Comment on above: Performed By: #### 2 644074, 0473186, 6766525, 06241461, 0811893, 8883403 ####[facility] [address] [place] [address] Albumin/Globulin (S) [Mass conc ratio] 1.0 Low 1.1-2.2 [facility] Comment on above: Performed By: #### 2 218368, 8142107, 2225155, 13523038, 4115697, 0578490 ####[address] [place] [address] ALP [Catalytic activity/Vol] 44 Int._Unit/L Normal 21-98 [facility] Comment on above: Performed By: #### 2 917325, 4552319, 2750858, 67585557, 9681324, 3762442 ####[facility] [address] [place] [address] ALT No additional P-5'-P [Catalytic activity/Vol] 22 Int._Unit/L Normal 6-46 [facility] Comment on above: Performed By: #### 2 496906, 6850466, 9577173, 43026515, 0261826, 7606927 ####[facility] [address] [place] [address] AST [Catalytic activity/Vol] 18 Int._Unit/L Normal 5-43 [facility] Comment on above: Performed By: #### 2 513215, 7436635, 3546261, 90176091, 4454076, 6463876 ####[facility] [address] [place] [address] Bilirubin [Mass/Vol] 0.8 mg/dL Normal 0.0-1.1 [facility] Comment on above: Performed By: #### 2 037590, 5600954, 7836368, 42846569, 5245702, 1956894 ####[facility] [address] [place] [address] Creatinine [Mass/Vol] 0.5 mg/dL Normal 0.5-1.3 [facility] Comment on above: Performed By: #### 2 608581, 3801169, 9060112, 18176175, 4051234, 4890683 ####[facility] [address] [place] [address] Globulin (S) [Mass/Vol] 4.0 g/dL Normal 1.4-4.0 [facility] Comment on above: Performed By: #### 2 247950, 5172968, 0777996, 41067181, 7711458, 6918360 ####[facility] [address] [place] [address] Protein [Mass/Vol] 8.2 g/dL High 6.0-7.8 [facility] Comment on above: Performed By: #### 2 144811, 4956942, 2557446, 25349681, 4607284, 4674009 ####[facility] [address] [place] [address] Urea nitrogen [Mass/Vol] 6 mg/dL Normal 5-21 [facility] Comment on above: Performed By: #### 2 701636, 3267678, 2597799, 56300033, 6202520, 7088981 ####[facility] [address] [place] [address] Urea nitrogen/Creatinine [Mass ratio] 12 No Units Normal 10-20 [facility] Comment on above: Performed By: #### 2 237928, 0542305, 8868321, 98921317, 2519937, 8593081 ####[facility] [address] [place] [address] Anion gap [Moles/Vol] 14 mmol/L Normal 6-16 [facility] Comment on above: Performed By: #### 2 786099, 2755826, 7892715, 89807546, 0607091, 6798614 ####[facility] [address] [place] [address] Calcium [Mass/Vol] 8.9 mg/dL Normal 8.9-11.1 [facility] Comment on above: Performed By: #### 2 185344, 4697248, 1345801, 31933742, 3776579, 2017139 ####[facility] [address] [place] [address] Chloride [Moles/Vol] 103 mmol/L Normal 101-111 [facility] Comment on above: Performed By: #### 2 085056, 8693794, 8056056, 85082007, 7008657, 0290437 ####[facility] [address] [place] [address] CO2 [Moles/Vol] 25 mmol/L Normal 21-[address] [facility] Comment on above: Performed By: #### 2 112984, 5377282, 7802515, 02085971, 4287862, 4399844 ####[facility] [address] [place] [address] Glucose [Mass/Vol] 90 mg/dL Normal 55-199 [facility] Comment on above: Result Comment: If t his glucose result represents a fasting glucose, interpretation should refer to the following reference range: 55-99 mg/dL Performed By: #### 2 520230, 0083260, 6632991, 77336981, 6289378, 1367776 ####[facility] [address] [place] [address] Potassium [Moles/Vol] 3.8 mmol/L Normal 3.5-5.3 [facility] Comment on above: Performed By: #### 2 031985, 3027577, 8182418, 31559643, 4886016, 4535186 ####[facility] [address] [place] [address] Sodium [Moles/Vol] 138 mmol/L Normal 135-145 [facility] Comment on above: Performed By: #### 2 572337, 8103616, 1185435, 84198286, 7223150, 5929473 ####[facility] [address] [place] [address] CT Abdomen/Pelvis w/o Contra kenyon 12-19-2020 CT Abdomen/Pelvis w/o Contrast Exam Date/Time: [...] and spleen are not included within the wqgzf-rz-wlsk of this renal stone protocol study. The [...] Oral contrast amount in ml's: 0 Normal [facility] Consent for Treatmenton 12-05 Consent for Treatment [id number] 10 [id number] Normal [facility] ED Clinical Summaryon 2020 ED Clinical Summary [place] [id number] ED Clinical Summary Person Information Name: FUNMILAYO CONWAY [facility] Age: 30 Years : 1990 Sex: Female Language: Kosovan PCP: Maki VELA PA-C Marital Status: Phone: [phone] Visit Id: Visit Reason: Vomiting; Back pain; [...] 12/19/2020 20:36:01 12/19/2020 20:36:01 12/19/2020 20:36:01 ADDRESS: [address] [place] [address] [address] [facility] [id number] PHYS DOC NOTES: MEDICAL INFORMATION: Prescriptions Given: Medications to Continue with No Changes Other Medications cephalexin (Keflex 500 mg Cap) 1 Capsules By Mouth every 6 hours for 7 Days. Refills: 0. ondansetron (ondansetron 4 mg Dis Tab) 1 Tablets By Mouth every 6 hours as needed Nausea/Vomiting. Refills: 0. PATIENT EDUCATION INFORMATION: Instructions: Follow up: DIAGNOSIS: Normal [facility] ED Note-Physicianon 12-20-19 ED Note-Physician [...] (12/19/20 17:3 (more content not included)... Normal [facility] Comment on above: Result Comment: Elec tronically Signed By: Shiva Ferreira DO\.br\Date and Time Signed: 12/19/20 19:19 EDT ED Patient Education Noteon 12-19-2020 ED Patient Education Note Normal [facility] ED Patient Summaryon 021 ED Patient Summary [place] [id number] Patient Discharge Instructions Person Information Name: FUNMILAYO CONWAY Age: 30 Years Arrival Date: 12/19/2020 16:38:33 Discharge Diagnosis: Primary Care Physician: Maki VELA PA-C Provider Information Primary Provider: Shiva Ferreira DO Advanced Video Photographer:None The exam and treatment you received in the Emergency Department were for an urgent problem and are not intended as complete care. It is important that you follow up with a doctor, nurse practitioner, or physician?s social media assistant for ongoing care. If your symptoms [...] opioids can be used to help relieve mojyzxvm-hs-xcxrwd pain and are often prescribed following a [...] be struggling with addiction, tell your health laboratory animal caretaker and ask for guidance or call [facility]?S National Helpline at 6-110-198-JPIT. v Source: US Department of Health and Human Services/Center for Disease Control & Prevention [facility] Medications Given: Medication Dose Route Sodium Chloride 0.9% 1000.00 m (more content not included)... Normal [facility] Lactic Acidon 12-19-2020 Lactate [Mass/Vol] 0.8 mmol/L Normal 0.5-2.2 [facility] Comment on above: Performed By: #### 2 [id number] #### [facility] [address] [place] [address] Lactate [Mass/Vol] 0.9 mmol/L Normal 0.5-2.2 [facility] Comment on above: Performed By: #### 2 738786, 7305204, 8714085, [id number], 8065942, 3659113 #### [facility] [address] [place] [address] Physician Orderon 12-19-2020 Physician Order [id number]:127 Normal [facility] Troponinon 12-19-2020 Troponin I.cardiac [Mass/Vol] 2.30 pg/mL Low 10.10-27.10 [facility] Comment on above: Result Comment: The 95% CI (Confidence Interval) PPV (Positive Predictive Value) for myocardial infarction in females is 38 pg/mL, in males 51 pg/mL. The results should be used in conjunction with clinical conditions of myocardial infarction. (Access High Sensitivity Troponin I Instructions For Use, [place], January 2018) Performed By: #### 2 [id number], 6411161, 4340902, 76611263, 8930383, 0742713 ####[facility] [address] [place] [address] UA With Cult Reflexon 2020 Bacteria LM Ql (Urine sed) TRACE Normal Trace [facility] Comment on above: Performed By: #### 1 [id number] ####[facility] [address] [place] [address] Bilirubin Ql (U) Negative Normal Negative [facility] Comment on above: Performed By: #### 1 [id number] ####[facility] [address] [place] [address] Clarity (U) CLEAR Normal Clear [facility] Comment on above: Performed By: #### 1 9681914 ####[facility] [address] [place] [address] Color (U) YELLOW Normal Yellow [facility] Comment on above: Performed By: #### 1 [id number] ####[facility] [address] [place] [address] Epithelial cells.squamous LM.HPF (Urine sed) [#/Area] 3-4 Normal 0-2 [facility] Comment on above: Performed By: #### 1 [id number] ####[facility] [address] [place] [address] Glucose Test strip (U) [Mass/Vol] Negative Normal Negative [facility] Comment on above: Performed By: #### 1 6363542 ####[facility] [address] [place] [address] Hemoglobin Ql (U) Negative Normal Negative [facility] Comment on above: Performed By: #### 1 1915296 ####[facility] [address] [place] [address] Ketones (U) [Mass/Vol] 1+ Abnormal Negative [facility] Comment on above: Performed By: #### 1 8039150 ####[facility] [address] [place] [address] Nicolaus.plasma/Nicolaus. RBC (Bld) [Mass ratio] 0-3 Normal 0-[address] [facility] Comment on above: Performed By: #### 1 [id number] ####[facility] [address] [place] [address] Mucus Ql (Urine sed) 1+ Normal [facility] Comment on above: Performed By: #### 1 5011097 ####[facility] [address] [place] [address] Nitrite Ql (U) Negative Normal Negative [facility] Comment on above: Performed By: #### 1 3976364 ####[place] [address] [place] [address] pH (U) 6.0 [pH] Invalid Interpretation Code 5.0-9.0 [facility] Comment on above: Performed By: #### 1 [id number] ####[address] [address] Protein (U) [Mass/Vol] TRACE Abnormal Negative [facility] Comment on above: Performed By: #### 1 [id number] ####[address] [address] Specific gravity (U) [Rel density] 1.025 Invalid Interpretation Code 1.005-1.030 [facility] Comment on above: Performed By: #### 1 8554649 ####[address] [address] Type of Urine collection method Clean Catch Normal [facility] Comment on above: Performed By: #### 1 [id number] ####[address] [address] Urobilinogen Qn (U) 0.2 {Tg'U}/dL Normal 0.0-1.0 [facility] Comment on above: Performed By: #### 1 7004151 ####[address] [address] WBC Auto Ql (U) Negative Normal Negative [facility] Comment on above: Performed By: #### 1 0515399 ####[address] [address] WBC LM.HPF (Urine sed) [#/Area] 0-5 Normal 0-5 [facility] Comment on above: Performed By: #### 1 8034568 ####[address] [address] eGFRon 12-19-2020 GFR/1.73 sq M.predicted among blacks MDRD (S/P/Bld) [Vol rate/Area] mL/min/{1.73_m2} Normal >=59 [facility] Comment on above: Order Comment: Order added by Discern Expert. Result Comment: eGFR is race adjusted. AA=. Performed By: #### 2 049150, 8735033, 8275212, 12656832, 2129038, 9174301 ####[facility] [address] [place] [address] GFR/1.73 sq M.predicted among non-blacks MDRD (S/P/Bld) [Vol rate/Area] mL/min/{1.73_m2} Normal >=59 [facility] Comment on above: Order Comment: Order added by Discern Expert. Result Comment: Pension Fund Manager roshan kidney disease could be indicated at eGFR's of less than 60 mL/min/1.73m2. Kidney failure is indicated at less than 15 mL/min/1.73m2. Performed By: #### 2 952400, 1148781, 1725807, 37994904, 7688420, 4059723 ####[facility] [address] [place] [address] Consent for Treatmenton 12-05 Consent for Treatment [id number] #[id number]:127 Normal [facility] Discharge Instructionson Discharge Instructions [id number]#1.00CD:127 Normal [facility] ED Clinical Summaryon 2020 ED Clinical Summary [address] [address] ED Clinical Summary Person Information Name: FUNMILAYO CONWAY [place] Age: 30 Years : 1990 Sex: Female Language: Kosovan PCP: Maki VELA PA-C Marital Status: Phone: [phone] Visit Id: Visit Reason: Back pain; Headache; [...] 12/18/2020 03:52:27 12/18/2020 03:52:27 12/18/2020 03:52:27 ADDRESS: [address] [place] [address] [address] [facility] [id number] PHYS DOC NOTES: MEDICAL INFORMATION: Prescriptions Given: New Medications [id number], [address], [place] [id number], [phone] cephalexin (Keflex 500 mg Cap) 1 Capsules By Mouth every 6 hours for 7 Days. Refills: 0. Medications to Continue with No Changes Other Medications ondansetron (ondansetron 4 mg Dis Tab) 1 Tablets By Mouth every 6 hours as needed Nausea/Vomiting. Refills: 0. PATIENT EDUCATION INFORMATION: Instructions: Pyelonephritis, Adult Follow up: With: Address: When: Maki DANE [address] [place] [address] Business (1) In 3 days DIAGNOSIS: Acute pyelonephritis Normal [facility] ED Note-Nursingon 12-18-2020 ED Note-Nursing pt ambulatory to with steady gait w/o assistance. urine sample obtained. md at bedside for eval; awaiting further orders Normal [facility] ED Note-Physicianon 12-19-19 ED Note-Physician Basic [...] day(s), # 28 cap(s), Refills(s) 0, Pharmacy: [id number], 165, cm, 12/18/20 1:04:00 [...] Information Maki VELA In [address] [place] [address]- Business (1) Additional Instructions: Patient [...] Family History (more content not included)... Normal [facility] Comment on above: Result Comment: Elec [...] you start to feel better. ? Take ccnh-wst-onfoytt and prescription medicines only as told by [...] 05/24/2006 Document Revised: 03/28/2019 Document Reviewed: 03/28/2019 [employer] Patient Education ? 2019 Picket. Normal [facility] ED Patient Summaryon 021 ED Patient Summary [address] [address] Patient Discharge Instructions Person Information Name: FUNMILAYO CONWAY Age: 30 Years Arrival Date: 12/18/2020 00:55:40 Discharge Diagnosis: Acute pyelonephritis Primary Care Physician: Maki VELA PA-C Provider Information Primary Provider: Darien Fischer DO Advanced Video Photographer:None The exam and treatment you received in the Emergency Department were for an urgent problem and are not intended as complete care. It is important that you follow up with a doctor, nurse practitioner, or physician?s social media assistant for ongoing care. If your symptoms [...] Address: When: Maki VELA [address] [place] [address] Business (1) In 3 days In the event that this physician does not participate in your insurance network, please consult with your insurance company to find a nearby participating provider. Patient Education Materials: Antoinette Burden A MESSAGE TO ALL PATIENTS REGARDING OPIOIDS PRESCRIPTION OPIOIDS: WHAT YOU NEED TO KNOW Prescription opioids can be used to help relieve hvyocqzk-ea-ipitls pain and are often prescribed following a [...] be struggling with addiction, tell your health laboratory animal caretaker and ask for guidance or call [facility]?S National Helpline at 5-815-918-BDHS. s Source: [facility] (more content not included)... Normal [facility] U BetaHcg Qualon 12-18-2020 HCG.beta subunit (U) [Moles/Vol] Negative Normal [facility] Comment on above: Performed By: #### 2 [id number] ####[facility] [address] [place] [address] UA With Cult Reflexon 2020 Bacteria LM Ql (Urine sed) 3+ /HPF Abnormal Trace [facility] Comment on above: Performed By: #### 1 3680244, [id number] ####[facility] [address] [place] [address] Bilirubin Ql (U) Negative Normal Negative [facility] Comment on above: Performed By: #### 1 8069314, 8626509 ####[facility] [address] [place] [address] Clarity (U) SL CLOUDY Abnormal Clear [facility] Comment on above: Performed By: #### 1 9203811, 2856329 ####[facility] [address] [place] [address] Color (U) YELLOW Normal Yellow [facility] Comment on above: Performed By: #### 1 0416160, 9767586 ####[facility] [address] [place] [address] Crystals LM Ql (Urine sed) Present Normal [facility] Comment on above: Performed By: #### 1 6793939, 4596553 ####[address] [address] Epithelial cells.squamous LM.HPF (Urine sed) [#/Area] 0-2 Normal 0-2 [facility] Comment on above: Performed By: #### 1 5177049, 0270561 ####[address] [address] Glucose Test strip (U) [Mass/Vol] Negative Normal Negative [facility] Comment on above: Performed By: #### 1 4960780, 7146755 ####[address] [address] Hemoglobin Ql (U) Negative Normal Negative [facility] Comment on above: Performed By: #### 1 2086992, 0346990 ####[address] [address] Ketones (U) [Mass/Vol] Negative Normal Negative [facility] Comment on above: Performed By: #### 1 0506091, 9777035 ####[address] [address] Nicolaus.plasma/Nicolaus. RBC (Bld) [Mass ratio] 0-3 Normal 0-[address] [facility] Comment on above: Performed By: #### 1 8629689, 7632728 ####[facility] [address] [place] [address] Mucus Ql (Urine sed) 1+ Normal [facility] Comment on above: Performed By: #### 1 4225761, 3065312 ####[address] [address] Nitrite Ql (U) Negative Normal Negative [facility] Comment on above: Performed By: #### 1 3678602, 5965644 ####[facility] [address] [place] [address] pH (U) 7.0 [pH] Invalid Interpretation Code 5.0-9.0 [facility] Comment on above: Performed By: #### 1 [id number], 0876518 ####[address] [address] Protein (U) [Mass/Vol] Negative Normal Negative [facility] Comment on above: Performed By: #### 1 8055236, 3753798 ####[address] [address] Specific gravity (U) [Rel density] 1.020 Invalid Interpretation Code 1.005-1.030 [facility] Comment on above: Performed By: #### 1 [id number], 6755868 ####[place] [address]2757 Type of Urine collection method Clean Catch Normal [facility] Comment on above: Performed By: #### 1 3289778, 3711583 ####[address] [address] Urobilinogen Qn (U) 0.2 {Tg'U}/dL Normal 0.0-1.0 [facility] Comment on above: Performed By: #### 1 0240441, 8653723 ####[address] [address] WBC Auto Ql (U) Negative Normal Negative [facility] Comment on above: Performed By: #### 1 2616837, 1299061 ####[address] [address] WBC LM.HPF (Urine sed) [#/Area] 0-5 Normal 0-5 [facility] Comment on above: Performed By: #### 1 9266608, 5210175 ####[address] [address] Vital Signs Date Time Vital Sign Value Performing Clinician Facility 03-09-2024 17:45-0400 Body height 167.[address] [facility] 03-09-2024 17:45-0400 Body mass index (BMI) [Ratio] 35.5 kg/m2 [facility] 03-09-2024 17:45-0400 Body temperature 99.3 [degF] [facility] 03-09-2024 17:45-0400 Body weight 99.[address] [facility] 03-09-2024 17:45-0400 Diastolic blood pressure 79 mm[Hg] [facility] 03-09-2024 17:45-0400 Heart rate 91 /min [facility] 03-09-2024 17:45-0400 Respiratory rate 18 /min [facility] 03-09-2024 17:45-0400 SaO2% (BldA) [Mass fraction] 99 % [facility] 03-09-2024 17:45-0400 Systolic blood pressure 121 mm[Hg] [facility] 12-01-2023 10:47-0400 Body temperature 98.5 [degF] PHYSICIAN NO [facility] 12-01-2023 10:47-0400 Diastolic blood pressure 71 mm[Hg] PHYSICIAN NO [facility] 12-01-2023 10:47-0400 Heart rate 72 /min PHYSICIAN NO [facility] 12-01-2023 10:47-0400 Respiratory rate 18 /min PHYSICIAN NO [facility] 12-01-2023 10:47-0400 SaO2% (BldA) [Mass fraction] 97 % PHYSICIAN NO [facility] 12-01-2023 10:47-0400 Systolic blood pressure 121 mm[Hg] PHYSICIAN NO [facility] 12-01-2023 08:54-0400 Body height 167.64 cm PHYSICIAN NO [facility] 12-01-2023 08:54-0400 Body weight 100.3 kg PHYSICIAN NO [facility] 05-05-2023 15:54-0500 Body height 165.[address] Work Phone: [facility] 04-13-2023 10:23-0500 Body height 165.1 cm Jona Bermudez MD Work Phone: [facility] 04-13-2023 10:23-0500 Body weight 94.35 kg Jona Bermudez MD Work Phone: [facility] 12-30-2022 13:46-0400 Body height 165.[address] Work Phone: [facility] 12-30-2022 13:46-0400 Body weight 96.[address] Work Phone: [facility] 06-09-2022 09:24-0500 Body height 165.[address] Work Phone: [facility] 06-09-2022 09:24-0500 Body weight 118.[address] Work Phone: [facility] 03-18-2022 13:36-0400 Body height 165.1 cm Pacc 5 Work Phone: [facility] 03-18-2022 13:36-0400 Body temperature 97.39 [degF] Pacc 5 Work Phone: [facility] 03-18-2022 13:36-0400 Body weight 143.02 kg Pacc 5 Work Phone: [facility] 03-18-2022 13:36-0400 Diastolic blood pressure 81 mm[Hg] Pacc 5 Work Phone: [facility] 03-18-2022 13:36-0400 Heart rate 88 /min Pacc 5 Work Phone: [facility] 03-18-2022 13:36-0400 SaO2% (BldA) [Mass fraction] 97 % Pacc 5 Work Phone: [facility] 03-18-2022 13:36-0400 Systolic blood pressure 133 mm[Hg] Pacc 5 Work Phone: [facility] 03-18-2022 11:10-0400 Body height 165.5 cm Jona Bermudez MD Work Phone: [facility] 03-18-2022 11:10-0400 Body weight 141.98 kg Jona Bermudez MD Work Phone: [facility] 03-18-2022 11:10-0400 Diastolic blood pressure 76 mm[Hg] Jona Bermudez MD Work Phone: [facility] 03-18-2022 11:10-0400 Heart rate 78 /min Jona Bermudez MD Work Phone: [facility] 03-18-2022 11:10-0400 Systolic blood pressure 134 mm[Hg] Jona Bermudez MD Work Phone: [facility] 02-08-2022 15:57-0400 Body height 165.1 cm Marco A Hoy Other Phone: [facility] Other Phone (unformatted): [phone] 02-08-2022 15:57-0400 Body temperature 97.88 [degF] Marco A Hoy Other Phone: [facility] Other Phone (unformatted): [phone] 02-08-2022 15:57-0400 Body weight 150 kg Marco A Hoy Other Phone: [facility] Other Phone (unformatted): [phone] 02-08-2022 15:57-0400 Diastolic blood pressure 78 mm[Hg] Marco A Hoy Other Phone: [facility] Other Phone (unformatted): [phone] 02-08-2022 15:57-0400 Heart rate 77 /min Marco A Hoy Other Phone: [facility] Other Phone (unformatted): [phone] 02-08-2022 15:57-0400 Respiratory rate 20 /min Marco A Hoy Other Phone: [facility] Other Phone (unformatted): [phone] 02-08-2022 15:57-0400 SaO2% (BldA) [Mass fraction] 97 % Marco A Hoy Other Phone: [facility] Other Phone (unformatted): [phone] 02-08-2022 15:57-0400 Systolic blood pressure 143 mm[Hg] Marco A Hoy Other Phone: [facility] Other Phone (unformatted): [phone] 12-01-2021 09:31-0400 Body height 167.[address] [facility] 12-01-2021 09:310400 Body weight 149.[address] [facility] 11-26-2021 13:50-0400 Diastolic blood pressure 84 mm[Hg] Mulugeta Salmon MD Work Phone: [facility] 11-26-2021 13:50-0400 Heart rate 76 /min Mulugeta Salmon MD Work Phone: [facility] 11-26-2021 13:50-0400 Respiratory rate 15 /min Mulugeta Salmon MD Work Phone: [facility] 11-26-2021 13:50-0400 SaO2% (BldA) [Mass fraction] 95 % Mulugeta Salmon MD Work Phone: [facility] 11-26-2021 13:50-0400 Systolic blood pressure 127 mm[Hg] Mulugeta Salmon MD Work Phone: [facility] 11-26-2021 13:30-0400 Body temperature 97 [degF] Mulugeta Salmon MD Work Phone: [facility] 11-12-2021 15:29-0400 Body height 167.6 cm [facility] 11-12-2021 15:29-0400 Body weight 148.96 kg [facility] 11-07-2021 09:23-0400 Body weight 148.78 kg Danny Cristina DO Work Phone: [facility] 10-27-2021 17:25-0400 Body height 165.1 cm Myron Jacome Other 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 Other 10-27-2021 17:25-0400 Body mass index (BMI) [Ratio] 55.74 kg/m2 Myron Jacome Other 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 Other 10-27-2021 17:25-0400 Body temperature 97.8 [degF] Myron Jacome Other 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 Other 10-27-2021 17:25-0400 Body weight 151.96 kg Myron Jacome Other 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 Other 10-27-2021 17:25-0400 SaO2% (BldA) [Mass fraction] 97 % Myron Jacome Other 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 Other 09-15-2021 14:13-0400 Body height 167.2 cm Jona Bermudez MD Work Phone: [facility] 09-15-2021 14:13-0400 Body weight 152.86 kg Jona Bermudez MD Work Phone: [facility] 09-15-2021 14:13-0400 Diastolic blood pressure 86 mm[Hg] Jona Bermudez MD Work Phone: [facility] 09-15-2021 14:13-0400 Heart rate 92 /min Jona Bermudez MD Work Phone: [facility] 09-15-2021 14:13-0400 Systolic blood pressure 140 mm[Hg] Jona Bermudez MD Work Phone: [facility] Encounters Encounter Date Encounter Type Care Provider Facility Start: 03-10-2024 End: 03-10-2024 ambulatory JOSE RAMON MARRUFO Not Available Start: 03-09-2024 End: 03-09-2024 ambulatory [facility] Work Phone: Start: 03-09-2024 End: 03-09-2024 Patient encounter procedure [facility] Work Phone: Start: 12-20-2023 End: 12-20-2023 ambulatory COLBY MARIANA Not Available Start: 12-08-2023 End: 12-08-2023 ambulatory PHYSICIAN NO [facility] Work Phone: Start: 12-08-2023 End: 12-08-2023 Departed Referred PHYSICIAN NO [facility] Start: 12-06-2023 End: 12-06-2023 ambulatory COLBY MARIANA Not Available Start: 12-01-2023 End: 12-01-2023 Emergency department patient visit PHYSICIAN NO [facility] Work Phone: Start: 11-25-2023 End: 11-25-2023 ambulatory COLBY MARIANA Not Available Start: 08-24-2023 End: 08-24-2023 ambulatory COLBY MARIANA Not Available Start: 06-22-2023 End: 06-22-2023 ambulatory COLBY MARIANA Not Available Start: 05-05-2023 End: 05-05-2023 ambulatory Bita Vigil TERENCE Work Phone: General Surgery Comment on above: S/P gastric bypass ( Primary Dx); Impaired intestinal absorption; Dietary counseling and surveillance Start: 05-05-2023 End: 05-05-2023 Telemedicine consultation with patient Bita Vigil RD Work Phone: [facility] Start: 04-13-2023 End: 04-13-2023 ambulatory MARCO A BYRD Facility:[facility] Start: 04-13-2023 End: 04-13-2023 ambulatory Jona Bermudez MD Work Phone: General Surgery Comment on above: S/P gastric bypass ( Primary Dx) Start: 04-13-2023 End: 04-13-2023 Telemedicine consultation with patient Jona Bermudez MD Work Phone: [facility] Start: 12-30-2022 End: 12-30-[address] Work Phone: General Surgery Comment on above: S/P gastric bypass ( Primary Dx); Dietary counseling and surveillance Start: 12-30-2022 End: 12-30-2022 Telemedicine consultation with patient Bita Vigil RD Work Phone: [facility] Start: 09-09-2022 End: 09-09-2022 ambulatory BITA YARITZA Facility:[facility] Start: 06-09-2022 End: 06-09-2022 ambulatory BITA YARITZA Facility:[facility] Start: 06-09-2022 End: 06-09-[address] Work Phone: General Surgery Comment on above: S/P gastric bypass ( Primary Dx); Impaired intestinal absorption; Dietary counseling and surveillance Start: 06-09-2022 End: 06-09-2022 Telemedicine consultation with patient Bita Vigil RD [facility] [facility] Start: 05-15-2022 End: 05-18-2022 ambulatory JONA BERMUDEZ Facility:[facility] Start: 05-07-2022 End: 05-07-2022 ambulatory Jona Bermudez MD Work Phone: General Surgery Comment on above: History of Cathie-en-Y gastric bypass (Primary Dx) Start: 05-07-2022 End: 05-07-2022 Telemedicine consultation with patient Jona Bermudez MD Work Phone: [facility] Start: 04-08-2022 End: 04-08-2022 ambulatory Fellow Scott Main Work Phone: General Surgery Comment on above: Status post gastric bypass for obesity (Primary Dx); Obesity, Class III, BMI 40-49.9 (morbid obesity) ([facility]) Start: 04-08-2022 End: 04-08-2022 Telemedicine consultation with patient Fellow Scott Main Work Phone: [facility] Start: 03-18-2022 End: 03-18-2022 [facility] to [facility] 5 Work Phone: [facility] Start: 03-18-2022 End: 03-18-2022 [...] Emergency department patient visit Mary Beth [id number] Other Phone (unformatted): [phone] Start: 01-07-2022 End: 01-07-2022 ambulatory DANUTA RENALDO Facility: Start: 01-05-2022 End: 01-05-2022 Departed Referred PHYSICIAN [facility] Start: 12-24-2021 Admission to [facility] Jona Bermudez MD Work Phone: General Surgery Comment on above: 02/01/2022 ([place]o parish rgery date) Start: 12-24-2021 ambulatory Jona Bermudez MD Work Phone: [facility] Start: 12-23-2021 ambulatory Danny fishman DO Work Phone: General Surgery Comment on above: Question regarding C OMP METABOLIC PANEL Start: 12-23-2021 Telephone encounter Danny Cristina DO Work Phone: General Surgery Comment on above: Results Start: 12-03-2021 End: 12-03-2021 Patient encounter procedure Nurse Card [facility] Rej Work Phone: Cardiology Comment on [...] by physician [facility] Work Phone: [facility] Radiology Ultrasound Comment on above: Class 3 severe obesi ty with body mass index (BMI) of 50.0 to 59.9 in adult, unspecified obesity type, unspecified whether serious comorbidity present (HCC) [E66.01, Z68.43] Start: 11-28-2021 End: 11-28-2021 Subsequent hospital visit by physician Jorje [facility] Work Phone: [facility] Radiology General Comment on above: Class [...] Start: 11-12-2021 End: 11-12-2021 Admission to establishment [facility] Start: 11-12-2021 End: 11-12-2021 Preprocedural examination done [facility] Virtual Pre Anesthesia Start: 11-12-2021 End: 11-12-2021 ambulatory Maria T Lares APRN.CNP Work Phone: Pre Anesthesia Comment on above: Pre-op Instructions Preoperative examina tion (Primary Dx); Morbidly obese (HCC); Fatty liver; Anxiety and depression Start: 11-12-2021 E-mail encounter jailyn verde caregiver Maria T Lares JEANNINE Work Phone: [facility] Start: 11-07-2021 End: 11-07-2021 ambulatory Danny Cristina DO Work Phone: General Surgery Comment on above: Class 3 severe obesi ty with body mass index (BMI) of 50.0 to 59.9 in adult, unspecified obesity type, unspecified whether serious comorbidity present (HCC) (Primary Dx); PCOS (polycystic ovarian syndrome) Start: 11-07-2021 End: 11-07-2021 Telemedicine consultation with patient Danny Cristina DO Work Phone: [facility] Start: 10-27-2021 End: 10-27-2021 ambulatory Myron Jacome Other 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 Other Start: 10-27-2021 Office outpatient vi sit 15 minutes Myron Jacome [facility] Start: 10-01-[address] ELMIRA SNOW [...] DTaP,Tdap,Td Vaccine (3 - Td or Tdap) [facility] Start: 12-01-2023 [facility] Start: 02-05-2023 Covid-19 Vaccine ( season) Covid-19 Vaccine ( season) [facility] Start: 02-05-2023 Influenza vaccination [facility] Start: 10-23-2022 Adult depression screening assessment DEPRESSION SCREENING [facility] Start: 02-05-2022 Influenza vaccination [facility] Start: 11-07-2021 End: 01-07-2022 CBC W Auto Differential panel - Blood CBC + DIFF Lab Routine Class 3 severe obesity with body mass index (BMI) of 50.0 to 59.9 in adult, unspecified obesity type, unspecified whether serious comorbidity present (HCC) Expected: 11/07/2021, Expires: 01/07/2022 [facility] Work Phone: Comment on above: Expected: 11/07/2021 , Expires: 01/07/2022 Start: 11-07-2021 End: 01-07-2022 Comprehensive metabolic 2000 panel - Serum or Plasma COMP METABOLIC PANEL Lab Routine Class 3 severe obesity with body mass index (BMI) of 50.0 to 59.9 in adult, unspecified obesity type, unspecified whether serious comorbidity present (HCC) Expected: 11/07/2021, Expires: 01/07/2022 [facility] Work Phone: Comment on above: Expected: 11/07/2021 , Expires: 01/07/2022 Start: 11-07-2021 End: 01-07-2022 FERRITIN BLD FERRITIN BLD Lab Routine Class 3 severe obesity with body mass index (BMI) of 50.0 to 59.9 in adult, unspecified obesity type, unspecified whether serious comorbidity present (HCC) Expected: 11/07/2021, Expires: 01/07/2022 [facility] Work Phone: Comment on above: Expected: 11/07/2021 , Expires: 01/07/2022 Start: 11-07-2021 End: 01-07-2022 Folate [Mass/volume] in Serum or Plasma FOLATE SERUM Lab Routine Class 3 severe obesity with body mass index (BMI) of 50.0 to 59.9 in adult, unspecified obesity type, unspecified whether serious comorbidity present (HCC) Expected: 11/07/2021, Expires: 01/07/2022 [facility] Work Phone: Comment on above: Expected: 11/07/2021 , Expires: 01/07/2022 Start: 11-07-2021 End: 01-07-2022 Hemoglobin A1c/Hemoglobin.total in Blood HGB A1C Lab Routine PCOS (polycystic ovarian syndrome) Expected: 11/07/2021, Expires: 01/07/2022 [facility] Work Phone: Comment on above: Expected: 11/07/2021 , Expires: 01/07/2022 Start: 11-07-2021 End: 01-07-2022 IRON + TIBC IRON + TIBC Lab Routine Class 3 severe obesity with body mass index (BMI) of 50.0 to 59.9 in adult, unspecified obesity type, unspecified whether serious comorbidity present (HCC) Expected: 11/07/2021, Expires: 01/07/2022 [facility] Work Phone: Comment on above: Expected: 11/07/2021 , Expires: 01/07/2022 Start: 11-07-2021 End: 01-07-2022 LIPID PANEL BASIC LIPID PANEL BASIC Lab Routine Class 3 severe obesity with body mass index (BMI) of 50.0 to 59.9 in adult, unspecified obesity type, unspecified whether serious comorbidity present (HCC) Expected: 11/07/2021, Expires: 01/07/2022 [facility] Work Phone: Comment on above: Expected: 11/07/2021 , Expires: 01/07/2022 Start: 11-07-2021 End: 01-07-2022 PTH INTACT BLD PTH INTACT BLD Lab Routine Class 3 severe obesity with body mass index (BMI) of 50.0 to 59.9 in adult, unspecified obesity type, unspecified whether serious comorbidity present (HCC) Expected: 11/07/2021, Expires: 01/07/2022 [facility] Work Phone: Comment on above: Expected: 11/07/2021 , Expires: 01/07/2022 Start: 11-07-2021 End: 01-07-2022 Thyrotropin [Units/volume] in Serum or Plasma TSH BLD Lab Routine Class 3 severe obesity with body mass index (BMI) of 50.0 to 59.9 in adult, unspecified obesity type, unspecified whether serious comorbidity present (HCC) Expected: 11/07/2021, Expires: 01/07/2022 [facility] Work Phone: Comment on above: Expected: 11/07/2021 , Expires: 01/07/2022 Start: 11-07-2021 End: 01-07-2022 VITAMIN B1 (THIAMINE), WHOLE BLOOD VITAMIN B1 (THIAMINE), WHOLE BLOOD Lab Routine Class 3 severe obesity with body mass index (BMI) of 50.0 to 59.9 in adult, unspecified obesity type, unspecified whether serious comorbidity present (HCC) Expected: 11/07/2021, Expires: 01/07/2022 [facility] Work Phone: Comment on above: Expected: 11/07/2021 , Expires: 01/07/2022 Start: 11-07-2021 End: 01-07-2022 VITAMIN B12 BLOOD VITAMIN B12 BLOOD Lab Routine Class 3 severe obesity with body mass index (BMI) of 50.0 to 59.9 in adult, unspecified obesity type, unspecified whether serious comorbidity present (HCC) Expected: 11/07/2021, Expires: 01/07/2022 [facility] Work Phone: Comment on above: Expected: 11/07/2021 , Expires: 01/07/2022 Start: 11-07-2021 End: 01-07-2022 VITAMIN D 25 HYDROXY VITAMIN D 25 HYDROXY Lab Routine Class 3 severe obesity with body mass index (BMI) of 50.0 to 59.9 in adult, unspecified obesity type, unspecified whether serious comorbidity present (HCC) Expected: 11/07/2021, Expires: 01/07/2022 [facility] Work Phone: Comment on above: Expected: 11/07/2021 , Expires: 01/07/2022 Start: 09-29-2021 End: 09-15-2022 EGD BARIATRIC EGD BARIATRIC Endoscopy Routine Morbid obesity due to excess calories (HCC) Expected: 09/29/2021, Expires: 09/15/2022 [facility] Work Phone: Comment on above: Expected: 09/29/2021 , Expires: 09/15/2022 Start: 05-21-2021 COVID-19 VACCINE (5 - Booster) COVID-19 VACCINE (5 - Booster) [facility] Start: 05-21-2021 COVID-19 VACCINE (5 - Pfizer series) COVID-19 VACCINE (5 - Pfizer series) [facility] Start: 2019 HPV TESTING HPV TESTING [facility] Start: 2010 PAP TESTING PAP TESTING [facility] Start: 2008 Urine microalbumin profile DTAP,TDAP,TD (1 - Tdap) [facility] Start: 2007 HEPATITIS C SCREENING HEPATITIS C [facility] Start: 2007 HIV SCREENING HIV SCREENING [facility] Start: 2001 Adult depression screening assessment DEPRESSION SCREENING [facility] Start: 1989 HEPATITIS B (1 of 3 - 3-dose series) HEPATITIS B (1 of 3 - 3-dose series) [facility] Start: 1989 Hepatitis B Vaccine (1 of 3 - 3-dose series) Hepatitis B Vaccine (1 of 3 - 3-dose series) [facility] Basophils [#/volume] in Blood by Automated count [facility] Basophils/100 leukoc ytes in Blood by Automated count [facility] End: 11-07-2022 ECG COMPLETE ECG COMPLETE ECG Routine Class 3 severe obesity with body mass index (BMI) of 50.0 to 59.9 in adult, unspecified obesity type, unspecified whether serious comorbidity present (HCC) 1 Occurrences starting 11/07/2021 until 11/07/2022 [facility] Work Phone: Comment on above: 1 Occurrences starti ng 11/07/2021 until 11/07/2022 End: 09-16-2022 EGD DIAGNOSTIC EGD DIAGNOSTIC Endoscopy Routine Pre-op exam 1 Occurrences starting 09/16/2021 until 09/16/2022 [facility] Work Phone: Comment on above: 1 Occurrences starti ng 09/16/2021 until 09/16/2022 Eosinophils/100 leukocytes in Blood by Automated count [facility] Lymphocytes [#/volum e] in Blood by Automated count [facility] Lymphocytes/100 leukocytes in Blood by Automated count [facility] Monocytes [#/volume] in Blood by Automated count [facility] Monocytes/100 leukoc ytes in Blood by Automated count [facility] Neutrophils [#/volum e] in Blood by Automated count [facility] Neutrophils/100 leukocytes in Blood by Automated count [facility] Nucleated erythrocyt es [Presence] in Blood by Automated count [facility] Patient Education care [facility] Work Phone: Patient referral [facility] Work Phone: End: 12-07-2022 Radiologic exam chest 2 views XR CHEST 2V FRONTAL/LAT Radiology Routine Class 3 severe obesity with body mass index (BMI) of 50.0 to 59.9 in adult, unspecified obesity type, unspecified whether serious comorbidity present (HCC) 1 Occurrences starting 11/07/2021 until 12/07/2022 [facility] Work Phone: Comment on above: 1 Occurrences starti ng 11/07/2021 until 12/07/2022 End: 12-07-2022 Us abdominal real time w/image limited US ABD RT UPPER QUADRANT Radiology Routine Class 3 severe obesity with body mass index (BMI) of 50.0 to 59.9 in adult, unspecified obesity type, unspecified whether serious comorbidity present (HCC) 1 Occurrences starting 11/07/2021 until 12/07/2022 [facility] Work Phone: Comment on above: 1 Occurrences starti ng 11/07/2021 until 12/07/2022 [facility] Immunizations Immunization Date Immunization Notes Care Provider Fa cili 03-11-2022 influenza virus vacc ine, unspecified formulation Jona Bermudez MD Work Phone: [facility] Payers Date Payer Category Payer Unknown MMO MMO [employer] [id number] 2021-Present [phone] [address] [place] [address] PPO [id number] 2021 Unknown 1989 Unknown [id number] 1989 Unknown [id number] 1989 Unknown [id number] 1989 Unknown [id number] 1989 Unknown [id number] [id number] 1989 Unknown [id number] [id number] 1989 Unknown [id number] [id number] 1989 Unknown [id number] [id number] 1989 Unknown [id number] [id number] 1989 Unknown [id number] [id number] 1989 Unknown [id number] [id number] 1989 Unknown [id number] 1959 Self-pay 1959 Unknown [id number] [id number] Unknown [id number] Unknown [id number] Social History Date Type Detail Facility Start: 09-15-2021 End: 03-09-2024 Tobacco smoking status ALIS Never smoked tobacco [facility] Start: 09-15-2021 End: 03-18-2022 Tobacco use and exposure Smokeless tobacco non-user [facility] Start: 1990 Sex Assigned At Not on file [facility] Start: 09-05-2021 End: 03-26-2022 Exposure to SARS-CoV-2 (event) Not sure [facility] Start: 11-12-2021 Alcohol intake Current drinke r of alcohol (finding) [facility] Start: 11-12-2021 History SDOH Alcohol Comment Not weekly [facility] Start: 03-18-2022 End: 12-30-2022 Sex Assigned At [facility] Start: 1990 Sex Assigned At Female F [facility] Tobacco smoking consumption unknown [facility] Other Phone (unformatted): [phone] Start: 02-13-2022 End: 02-23-2022 Exposure to SARS-CoV-2 (event) Yes [facility] Start: 03-18-2022 End: 04-13-2023 Alcohol intake Ex-drinker (finding) [facility] Start: 03-18-2022 End: 12-30-2022 History of Social function [facility] Adult Depression Screening Assessment 0 [facility] Clinical Notes 12-20-2020 to 05-05-[address] - 05/05/2023 3:54 PM Jona Adams MD - 04/13/2023 10:20 AM ESTPatient Bita Lei RD - 12/30/2022 1:16 PM EDTPatient Instructions Note Date & Type Note Facility 05-05-2023 Note HNO ID: [id number] Author: Bita Vigil RD Service: ? Author Type: Registered Dietitian Type: Progress Notes Filed: 05/05/2023 5:03 PM Note Text: [facility] Nutrition Therapy: Virtual Consult - Re-assessment I have communicated my name and active licensure. The patient?s identity and physical location were verified at the time of this visit. Either the patient or their legal call center representative has been informed of the risks [...] Capsule with 45 mg Iron AND additional 1726-6875 mg per day Calcium Citrate 5. 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 Exercise: strive for daily activity. Increase as tolerated to goal of 200 minutes/week with combination of cardio and strength training exercise. 6. Practice mindful eating habits-take small portions, eat slowly, chew thoroughly Actions to implement interventions: see assessment Diet History: Breakfast - protein shake (20 gm protein powder, [employer] milk +/- PB2) OR eggs, breakfast meat [...] Physical limitations affect (more content not included)... [facility] 05-05-[address] - [...] Capsule with 45 mg Iron AND additional 8725-1125 mg per day Calcium Citrate 5. Exercise: [...] last 30 minutes documented in this encounter [facility] 05-05-2023 History of Present illness Narrative [facility] Nutrition Therapy: Virtual Consult - Re-assessment I have communicated my name and active licensure. The patient s identity and physical location were verified at the time of this visit. Either the patient or their legal call center representative has been informed of the risks [...] Capsule with 45 mg Iron AND additional 6909-7582 mg per day Calcium Citrate 5. 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 Exercise: strive for daily activity. Increase as tolerated to goal of 200 minutes/week with combination of cardio and strength training exercise. 6. Practice mindful eating habits-take small portions, eat slowly, chew thoroughly Actions to implement interventions: see assessment Diet History: Breakfast - protein shake (20 gm protein powder, [employer] milk +/- PB2) OR eggs, breakfast meat [...] 3:54 PM PAGER: documented in this encounter [facility] 04-13-2023 Note HNO ID: [id number] Author: Jona Johns MD Service: ? Author Type: Physician Type: Progress Notes Filed: 04/13/2023 10:55 AM Note Text: Metabolic Surgery Postoperative Virtual Clinic Visit Name: Funmilayo Conway I have communicated my name and active licensure. The patient's identity and physical location were verified at the time of this visit. Either the patient or their legal call center representative has been informed of the risks [...] next week Jona Cormier MD, FACS, GABI compensation and benefits administrator [facility] Bariatric Fellowship Ops ManagerBilingual Sales Assistant laparoscopic Surgery Bariatric and Metabolic [place] [facility] 04-13-2023 History of Present illness Narrative Images from the original note were not included. Metabolic Surgery Postoperative Virtual Clinic Visit Name: Funmilayo Conway I have communicated my name and active licensure. The patient's identity and physical location were verified at the time of this visit. Either the patient or their legal call center representative has been informed of the risks [...] next week Jona Cormier MD, FACS, GABI compensation and benefits administrator [facility] Bariatric Fellowship Ops ManagerBilingual Sales Assistant laparoscopic Surgery Bariatric and Metabolic [place] documented in this encounter [facility] 12-30-2022 Note HNO ID: [id number] Author: Bita Vigil RD Service: ? Author [...] states doing well with no current concerns. 8814-6425 calories/day - advancing appropriately 80-100 protein intake/day - meeting needs 64+ fluid intake/day - meeting needs Taking all recommended vitamin/minerals from [facility] 1/day MVI with 45 mg Fe, 600 mg Ca citrated BID, and biotin. No new labs. Resting Metabolic Rate: 1722 Energy needs for weight loss 9934-7510 (15-20 kcals/kg CBW) Protein needs: 85 grams [...] Multivitamin Capsule with 45 mg Iron AND 1360-4971 mg per day Calcium Citrate 5. Exercise: [...] 25 minutes - Group Bita Vigil RD [facility] 12-30-[address] - [...] Multivitamin Capsule with 45 mg Iron AND 1211-4393 mg per day Calcium Citrate 5. Exercise: strive for daily activity. Increase as tolerated to goal of 200 minutes/week with combination of cardio and strength training exercise. 6. Practice mindful eating habits-take small portions, eat slowly, chew thoroughly documented in this encounter [facility] 12-30-2022 History of Present illness Narrative [...] states doing well with no current concerns. 7675-5015 calories/day - advancing appropriately 80-100 protein intake/day - meeting needs 64+ fluid intake/day - meeting needs Taking all recommended vitamin/minerals from [facility] 1/day MVI with 45 mg Fe, 600 mg Ca citrated BID, and biotin. No new labs. Resting Metabolic Rate: 1722 Energy needs for weight loss 3187-1568 (15-20 kcals/kg CBW) Protein needs: 85 grams [...] Multivitamin Capsule with 45 mg Iron AND 1893-3753 mg per day Calcium Citrate 5. Exercise: [...] Bita Vigil RD documented in this encounter [facility] 09-09-2022 Note HNO ID: [id number] Author: Bita Vigil RD Service: ? Author [...] Rate: 1889 Energy needs for weight loss 7582-8859 (10-15 kcals/kg CBW) Protein needs: 85 grams [...] 32 minutes - Group Bita Vigil RD [facility] 06-09-2022 Note HNO ID: [id number] Author: Bita Vigil RD Service: ? Author Type: Registered Dietitian Type: Progress Notes Filed: 06/09/2022 10:17 AM Note Text: [facility] Nutrition Therapy: Virtual Consult - Re-assessment [...] mg Iron and Calcium Citrate (total of 9424-9980 mg/day) * take calcium citrate separately from [...] Rate: 1993 Energy needs for weight loss 8624-5316 (10-15 kcals/kg CBW) Protein needs: 85 grams [...] Bariatric Multivitamin and Calcium Citrate (total of 6467-2639 mg/day) * take calcium citrate separately from Multivitamin with iron at least 2 hours apart and 4 hours apart from additional calcium [email or web address] - Bariatric Choice: 4 Complete Multivitamins (chewables) [...] veggie OR chili Snack - none OR haitian yogurt Dinner - same as lunch Snack [...] 1-3 days/week) Anthropometrics: (more content not included)... [facility] 06-09-[address] - [...] mg Iron and Calcium Citrate (total of 5072-7200 mg/day) * take calcium citrate separately from [...] assessment (294 lbs) documented in this encounter [facility] 06-09-2022 History of Present illness Narrative [facility] Nutrition Therapy: Virtual Consult - Re-assessment [...] mg Iron and Calcium Citrate (total of 8248-4768 mg/day) * take calcium citrate separately from [...] Rate: 1992 Energy needs for weight loss 4312-8965 (10-15 kcals/kg CBW) Protein needs: 85 grams [...] Bariatric Multivitamin and Calcium Citrate (total of 0923-7692 mg/day) * take calcium citrate separately from Multivitamin with iron at least 2 hours apart and 4 hours apart from additional calcium [email or web address] - Bariatric Choice: 4 Complete Multivitamins (chewables) [...] veggie OR chili Snack - none OR haitian yogurt Dinner - same as lunch Snack [...] 9:25 AM PAGER: documented in this encounter [facility] 05-17-2022 Note HNO ID: [id number] Author: Louise Tobin, PhD Service: ? Author Type: Psychologist Type: Progress Notes Filed: 05/18/2022 8:58 AM Note Text: [facility] DEPARTMENT OF PSYCHIATRY AND PSYCHOLOGY/[facility] Bariatric Behavioral Services Progress Note May 17, 2022 Billing codes: FAYE Tobin CPT Code: 59813 Brief Emotional/Behavioral Assessment with scoring/documentation [id number] Virtual GROUP PSYCHOTHERAPY Time initiated session: 8:30 AM to 9:30 AM Index Surgery Date of Surgery: 03/26/22 Surgeon: Dr. Cormier. Surgical Procedure: gastric bypass Current weight: 283 pounds Psychologist: Piedad Pt was seen in a virtual group. Participants were given the opportunity to discuss their experience since surgery and ask questions of other group members. The group roofer vinyl coating addressed questions and concerns related to psychological [...] hoped. She was able to navigate a Potential well - I felt normal. Patient mood [...] BMI team Louise Tobin, PhD, RD, LD, [facility] ACS-CEP, Psychologist [facility] 05-07-2022 History of Present illness Narrative [...] & Bariatric Surgery Fellow Bariatric & Metabolic [place] STAFF ATTESTATION: I have reviewed the [...] which included preparing to see the patient, [id number] patient care, completing clinical documentation, obtaining and/or [...] Jona Cormier MD documented in this encounter [facility] 04-08-2022 History of Present illness Narrative BARIATRIC SURGERY CLINIC FOLLOW UP NOTE Clinic Date: 04/08/2022 Funmilayo Conway, 31 year old [address] [place] [facility] [address] This visit was performed virtually (phone conversation) [...] 03/18/22: 143 kg (315 lb 4.8 oz). [place] weight: 68.5 kg (150 lb 15.1 oz) [...] rashes or skin changes. PHYSICAL EXAM: PHYSICAL EXAMINATION:[facility] 03/16/2021 GENERAL: No apparent distress. Pt [...] and Bariatric Surgery documented in this encounter [facility] 03-18-2022 History of Present illness Narrative BARIATRIC SURGERY PREOPERATIVE VISIT NOTE Name: Funmilayo Conway Medical Record: [id number] Encounter No.: [id number] Funmilayo Conway is a 31 year old [...] which included preparing to see the patient, [id number] patient care, completing clinical documentation, obtaining and/or reviewing separately obtained history, counseling and educating the patient/family/caregiver, and ordering medications, tests, or procedures. Prescriptions were explained and provided to the patient. Jona Bermudez MD Advanced Laparoscopic and Bariatric Surgery documented in this encounter [facility] 03-18-2022 Instructions Kwame Rodriguez APRN.CLINICAL NEUROPSYCHOLOGIST - 03/18/2022 2:08 PM EDT PATIENT PREOPERATIVE INSTRUCTIONS Jerardo Johns* has scheduled you for your procedure at this surgery center: [facility] Scheduling Office: [phone] --[address] [place] [address]. Please read below carefully for your personalized [...] Procedures: - YOU MUST HAVE A RESPONSIBLE FOOD SERVICE LEAD TAKE YOU HOME. A SIDE STITCHER OR INTERACTIVE DEVELOPER CANNOT BE MADE A RESPONSIBLE FOOD SERVICE LEAD. - We recommend that a responsible person [...] call the Wednesday before. Your surgeon s planner/scheduler will tell you what time to call the office. - If you have not reached the departmental planner/scheduler by 5 P.M., call [phone] after 5 P.M. the day before your surgery. Please be aware that emergency situations arise, which may delay or change your surgical time. If this happens, we will notify you as soon as possible and regret any inconvenience. If you already have an Advance Directive, please fax a copy to [phone] or email to for it to be [...] Kwame Rodriguez APRN.JOSE documented in this encounter [facility] 03-18-2022 History and physical note HISTORY AND PHYSICAL EXAMINATION SERVICE DATE: 03/18/2022 SERVICE TIME: 1:59 PM PRIMARY CARE PHYSICIAN: Marco A Bryd MD, MD REASON FOR VISIT: Funmilayo Conway [...] fevers. Neuro: No history of TIA's, stroke, CANCER PROGRAM CONSULTANT tumor, impaired sensorium, hemiplegia, paraplegia or quadraplegia. No neurological symptoms or problems. Respiratory: No history of current cough or dyspnea, or pneumonia in the past 6 weeks. No history of respiratory/pulmonary symptoms or problems. Cardiovascular: No history of HTN requiring medication, no history of angina, CHF, OK, cardiac surgery or stents. Denies rest pain, [...] or incontinence,, stones or chronic kidney disease WEIGHT TRAINER: Negative for abnormal vaginal bleeding, abnormal vaginal [...] TIME: 1:59 PM documented in this encounter [facility] 03-13-2022 Miscellaneous Notes BMI SPECIALTY CARE [...] Jagruti Escobar RN documented in this encounter [facility] 03-10-[address] - [...] fish, low fat dairy - cottage cheese, French yogurt, light yogurt, cheese, ricotta cheese, nuts, [...] Calcium Citrate twice a day (total of 7399-4261 mg/day) * take calcium citrate separately from Multivitamin with iron at least 2 hours apart and 4 hours apart from additional calcium www.[facility].LeadGenius - Bariatric Choice: 4 complete multivitamins (chewable) per day Www.bariatricSproutel.LeadGenius - Bariatric Advantage: 2 Multivitamins and 3 Calcium Citrate Chewable per day * take calcium citrate separately from Multivitamin with iron at least 2 hours apart and 4 hours apart from additional calcium www.bariatricadvantage.LeadGenius B complex with at least 75 mg [...] weeks post op documented in this encounter [facility] 03-10-2022 History of Present illness Narrative [...] fish, low fat dairy - cottage cheese, French yogurt, light yogurt, cheese, ricotta cheese, nuts, [...] - Celebrate: multiple options- look on website Www.celebratevitamins.LeadGenius - Procare Health: 1 Multivitamin and Calcium Citrate twice a day (total of 8158-0901 mg/day) * take calcium citrate separately from Multivitamin with iron at least 2 hours apart and 4 hours apart from additional calcium www.Aqua Skin ScienceareeVigilo.LeadGenius - Bariatric Choice: 4 complete multivitamins (chewables) per day Www.bariatricchoice.com - Bariatric Advantage: 2 Multivitamins and 3 Calcium Citrate Chewables per day * take calcium citrate separately from Multivitamin with iron at least 2 hours apart and 4 hours apart from additional calcium www.bariatricadvantage.LeadGenius B complex with at least 75 mg [...] fish, low fat dairy - cottage cheese, French yogurt, light yogurt, cheese, ricotta cheese, nuts, [...] - Celebrate: multiple options- look on website Www.nChannel.LeadGenius - Procare Health: 1 Multivitamin and Calcium Citrate twice a day (total of 1183-9730 mg/day) * take calcium citrate separately from Multivitamin with iron at least 2 hours apart and 4 hours apart from additional calcium www.[facility].LeadGenius - Bariatric Choice: 4 complete multivitamins (chewable) per day Www.bariatricchoice.LeadGenius - Bariatric Advantage: 2 Multivitamins and 3 Calcium Citrate Chewable per day * take calcium citrate separately from Multivitamin with iron at least 2 hours apart and 4 hours apart from additional calcium www.bariatricadFilementage.LeadGenius B complex with at least 75 mg [...] RDN, JOSE, SARAH documented in this encounter [facility] 12-23-2021 Miscellaneous Notes The following approved [...] Danny Cristina DO documented in this encounter [facility] 12-03-2021 Nurse Note EKG completed and reviewed; documented in this encounter [facility] 12-01-2021 History of Present illness Narrative [...] Bariatric Multivitamin and Calcium Citrate (total of 3514-5166 mg/day) * take calcium citrate separately from Multivitamin with iron at least 2 hours apart and 4 hours apart from additional calcium www.procarenow.LeadGenius - Bariatric Choice: 4 Complete Multivitamins (chewables) per day Www.bariatricchoice.com - Bariatric Advantage: 2 Multivitamins and 3 Calcium Citrate Chewables per day * take calcium citrate separately from Multivitamin with iron at least 2 hours apart and 4 hours apart from additional calcium Www.bariatricadvantage.LeadGenius Pre-op goal weight: 319 pounds Protein needs: [...] fish, low fat dairy - cottage cheese, French yogurt, light yogurt, cheese, ricotta cheese, nuts, [...] - Celebrate: multiple options- look on website Www.YuntaarateTopFloor.LeadGenius - Procare Health: 1 Multivitamin and Calcium Citrate twice a day (total of 5075-1548 mg/day) * take calcium citrate separately from Multivitamin with iron at least 2 hours apart and 4 hours apart from additional calcium www.[facility].LeadGenius - Bariatric Choice: 4 complete multivitamins (chewables) per day Www.bariatricchoice.LeadGenius - Bariatric Advantage: 2 Multivitamins and 3 Calcium Citrate Chewables per day * take calcium citrate separately from Multivitamin with iron at least 2 hours apart and 4 hours apart from additional calcium www.bariatricadvantage.LeadGenius B complex with at least 75 mg [...] minutes - Group Signed by: Davida Kaur MS,RD,LEO,LD documented in this encounter [facility] 11-28-2021 Note HNO ID: [id number] Author: Keira Salvador RDMS, RVT Service: Radiology Author Type: Chief Nursing Executive Type: Progress Notes Filed: 11/28/2021 1:52 PM [...] RDMS, RVT November 28, 2021 1:52 PM [facility] 11-28-2021 History of Present illness Narrative [...] 2021 1:52 PM documented in this encounter [facility] 11-28-2021 Note HNO ID: [id number] Author: RT Leann(Naresh) Service: ? Author Type: [...] RT Leann(R) November 28, 2021 12:58 PM [facility] 11-28-2021 History of Present illness Narrative [...] 2021 12:58 PM documented in this encounter [facility] 11-26-2021 History and physical note UPDATED [...] Pcp This is a virtual visit using Contact At Once! video visit. It required patient-provider interaction for [...] fevers. Neurological: No history of TIA's, stroke, CANCER PROGRAM CONSULTANT tumor, impaired sensorium, hemiplegia, paraplegia or quadraplegia. No neurological symptoms or problems. Respiratory: No history of current cough or dyspnea, or pneumonia in the past 6 weeks. No history of respiratory/pulmonary symptoms or problems. Cardiovascular: No history of HTN requiring medication, no history of angina, CHF, OK, cardiac surgery or stents. Denies rest pain, [...] > 1 time per night or hematuria. WEIGHT TRAINER: Negative for abnormal vaginal bleeding, abnormal vaginal [...] or any previous visit (from the past 93124 hour(s)). Assessment Morbidly obese (HCC) Assessment: Body [...] or younger Non-male patient STOP-Bang Score: 3 [id number] Score: Age: <65 Sex: female CHF history: No Hypertension history: No Stroke/TIA/thromboembolism history: No Vascular disease history: No Diabetes history: No [id number] Score: 1 ASA Class: 3 ANESTHESIA FINDINGS: [...] PM PAGER/CONTACT #: documented in this encounter [facility] 11-12-2021 History and physical note Images from the original note were not included. HISTORY AND PHYSICAL EXAMINATION SERVICE DATE: 11/12/2021 SERVICE TIME: 3:26 PM PRIMARY CARE PHYSICIAN: No Pcp This is a virtual visit using Contact At Once! video visit. It required patient-provider interaction for [...] fevers. Neurological: No history of TIA's, stroke, CANCER PROGRAM CONSULTANT tumor, impaired sensorium, hemiplegia, paraplegia or quadraplegia. No neurological symptoms or problems. Respiratory: No history of current cough or dyspnea, or pneumonia in the past 6 weeks. No history of respiratory/pulmonary symptoms or problems. Cardiovascular: No history of HTN requiring medication, no history of angina, CHF, OK, cardiac surgery or stents. Denies rest pain, [...] > 1 time per night or hematuria. WEIGHT TRAINER: Negative for abnormal vaginal bleeding, abnormal vaginal [...] or any previous visit (from the past 39038 hour(s)). Assessment Morbidly obese (HCC) Assessment: Body [...] or younger Non-male patient STOP-Bang Score: 3 [id number] Score: Age: <65 Sex: female CHF history: No Hypertension history: No Stroke/TIA/thromboembolism history: No Vascular disease history: No Diabetes history: No [id number] Score: 1 ASA Class: 3 ANESTHESIA FINDINGS: [...] PM PAGER/CONTACT #: documented in this encounter [facility] 11-12-2021 Instructions Maria T Lares APRN.CNP - 11/12/2021 3:40 PM EDT PATIENT PREOPERATIVE INSTRUCTIONS Mulugeta Salmon MD has scheduled you for your procedure at this surgery center: [facility]: [phone] --[address] [place] [address]. Please enter through the entrance closest to [...] Procedures: - YOU MUST HAVE A RESPONSIBLE FOOD SERVICE LEAD TAKE YOU HOME. A SIDE STITCHER OR INTERACTIVE DEVELOPER CANNOT BE MADE A RESPONSIBLE FOOD SERVICE LEAD. - We recommend that a responsible person [...] Advance Directive, please fax a copy to [phone] or email to for it to be [...] T Lares APRN.CNP documented in this encounter [facility] 11-07-2021 Instructions Danny Cristina, - 11/07/2021 9:39 AM EDT Lovely Conway , Thank you for completing your visit today and we welcome you to the surgical program. We are sure that you will still have some additional questions and encourage you to reach out to your care provider via [employer] OR your Patient Navigator. Patient Navigators are [...] free to ask for a hard copy. [email or web address]/-/ [email or web address]?la= en Once you complete all of the requirements (testing, consultations, diet, etc) from each provider, please call [phone] and select option #5 to initiate insurance approval. Please note scheduling information It is important to keep track of your scheduled appointments to ensure successful completion of our surgical program. Any missed appointments can further delay your pre-surgical work-up. [facility] does offer an opt-in option for getting text message appointment reminders. Please follow the link below if you would like to opt into this service. [email or web address] As part of your surgical work up, [...] these tests. You may call your local [facility] to get an appointment. - Lab work- No appointment is needed for this, you may complete at any [facility]. These are usually fasting labs, please be sure to fast (only water permitted) for 10-12 hours prior to the test. -Sleep Study- Please call [phone] or [phone] to get this appointment set up. -Sleep Medicine Consult- (Only needed if sleep study confirms sleep apnea) Please call [phone] or [phone] to schedule an appointment. -Upper GI/ EGD- Please call [phone] to schedule. -Provider follow up visit- Please call [phone] OR [phone] to schedule. Any testing that is completed outside of [facility] will need faxed to [phone]. We look forward to working with you on this journey, Danny Cristina DO documented in this encounter [facility] 11-07-2021 History of Present illness Narrative [...] healthy diet. Since the visit with the drapery hanger, eating less starch, not skipping meals, and eating more vegetables. Characterization of diet:Structured. History of eating disorders: negative Previous Obesity Treatments: commercial diets and dietitian. Exercise: Regular exercise: walking 3 times a week Barriers to regular exercise? None Stress test: no Functional Status: Run a short distance (8.00 METs) Sleep: TANI NO ; CPAP NO Quality:poor, Numerous awakenings Change Management Analyst Work? NO STOP BANG 1. Snoring : [...] PCOS Vitamin D deficiency No history of OK, COPD, asthma, peptic ulcer disease, dyslipidemia, hypothyroidism, [...] Danny Cristina DO documented in this encounter [facility] 10-27-2021 Evaluation note Encounter Date Diagnosis [...] Patient care instructions given in writting by [facility] document. 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 Other 04-12-2022 History of Present illness Narrative* Jagruti Escobar RN - 09/16/2021 9:47 AM EDT Opened in error. [facility] History of Present illness Narrative* Jona Bermudez MD - 09/15/2021 3:18 PM EDT Images from the original note were not included. [facility] DEPARTMENT OF SURGERY Jona Cormier M.D. [address] [place] [address], [place] [id number] NAME: Funmilayo Conway [facility] NO: [id number] DATE OF SERVICE: September 15, 2021 This [...] which included preparing to see the patient, [id number] patient care, completing clinical documentation, obtaining and/or reviewing separately obtained history, performing a medically appropriate examination, counseling and educating the pat ient/family/caregiver and ordering medications, tests, or procedures. Jona Bermudez MD Advanced Laparoscopic and Bariatric Surgery [facility] NoteChief Complaint consultation for GI complaints [...] Vaccine Date Status Com (more content not included)...[facility] Hospital[facility] on above:Result Comment: Electronically Signed By: EDY JOYCE, Elmira Diamond\Date and Time Signed: 08/04/21 17:32 [id number] NoteAdmission Information Admitting Physician - Neela LIM [...] voiding. [facility] --Other chronic medical conditions as outlined in note. Refer to d/c plan below: -Case reviewed and discussed with Dr. Graham who is in agreement with current d/c plan. Case will be reviewed and discussed with PCP or specialty sales consultant MD once the hospital c d still operator is able to reach him/her. I [...] made to ensure accuracy, however, inadvertently computerized accounts receivable coordinator mistakes may be present. Significant Findings CT [...] and spleen are not included within the [id number]-dm-[id number] of this renal stone protocol study. The [...] Ferreira DO 12/20/20 07:33: (more content not included)...[facility] HospitalComment on above:Result Comment: Electronically Signed By: Prerna CAVANAUGH\.br\Date and Time Signed: 12/20/20 10:28 EDT\.br\Electronically Co-Signed By: Jarred GRAHAM MD\.br\Date and Time Co-Signed: 01/13/21 08:22 [id number] NoteMicrobiology PROCEDURE: Blood Culture Charcoal [R1] SOURCE: Blood BODY SITE: Arm L COLLECTED DATE/TIME: 12/19/2020 17:25 EDT RECEIVED DATE/TIME: 12/19/2020 17:39 EDT START DATE/TIME: 12/19/2020 17:39 EDT FREE TEXT SOURCE: IV start Jhon DO, Shiva S. Jhon DO, Shiva S. FINAL REPORTS Final Report [] Verified Date/Time: 12/26/2020 18:00 EDT No growth at 7 days. Performing Locations R1: This [facility] performed at: [facility], [address] [place] [address], [id number] Joseph StreetComment on above:Performed By: #### [id number] #### [facility] [address] [place] [address] [id number] NoteMicrobiology PROCEDURE: Blood Culture Charcoal [R1] SOURCE: Blood BODY SITE: Arm R COLLECTED DATE/TIME: 12/19/2020 17:30 EDT RECEIVED DATE/TIME: 12/19/2020 17:39 EDT START DATE/TIME: 12/19/2020 17:39 EDT FREE TEXT SOURCE: Jhon DO, Shiva S. Jhon DO, Shiva S. FINAL REPORTS Final Report [] Verified Date/Time: 12/26/2020 18:00 EDT No growth at 7 days. Performing Locations R1: [facility] performed at: [facility], [address] [place] [address], [address] [place] [address], [address]liflk[address] Joseph StreetComment on above:Performed By: #### [id number] ####[facility] [address] [place] [id number] Marsha Flores entered room at this time [...] needs. Anticipated discharge home 12/20. CRM remains available.[facility] HospitalComment on above:Result Comment: Electronically Signed By: Janusz SOLIS, Sandra Alatorre\.br\Date and Time Signed: 12/20/20 08:26 [id number] Note Chief Complaint From home, patient complains [...] % (12/19/20:30:00) Lymph Auto: 29.4 % (12/19/20:30:00) Harvey Auto: 7.8 % (12/19/20:30:00) Eos Auto: 0.6 % (12/19/20:30:00) Basophil Auto: 0.7 % (12/19/20:30:00) Neutro Absolute: 5.1 E9/L (12/19/20 17:30:00) Lymph Absolute: 2.5 E9/L (12/19/20 17:30:00) Harvey Absolute: 0.7 E9/L (12/19/20:30:00) Eos Absolute: 0.1 E9/L (12/19/20 17:30:00) Basophil Absolute: 0.1 E9/L (12/19/20 17:30:00) Glucose Lvl: 90 mg/dL (12/19/20:30:00) BUN: 6 mg/dL (12/19/20:30:00) Creatinine: 0.5 mg/dL (12/19/20:30:00) eGFR: >60 (12/19/20:30:00) eGFR AA: >60 (12/19/20:30:00) BUN/Creat Ratio: 12 (12/19/20:30:00) Sodium Lvl: 138 mmol/L (12/19/20:30:00) Potassium Lvl: 3.8 mmol/L (12/19/20:30:00) Chloride: 103 mmol/L (12/19/20:30:00) CO2: 25 mmol/L (12/19/20:30:00) AGAP: 14 mEq/L (12/19/20:30:00) Calcium Lvl: 8.9 mg/dL (12/19/20 17:30:00) Alk Phos: 44 Int._Unit/L (12/19/20:30:00) ALT: 22 [...] See #1 3. L (more content not included)...[facility] HospitalComment on above: Result Comment: Electronically Signed By: Neela LIM DO\Date and Time Signed: 12/20/20 05:29 EDTEvaluation note* Diagnosis Morbid obesity due to excess calories (HCC)- Primary History of delivery Other postprocedural status documented in this encounter [facility] note* Diagnosis Pre-op exam- Primary Preoperative examination, unspecified documented in this encounter [facility] note* Diagnosis Morbid obesity (HCC)- Primary Morbid obesity documented in this encounter [facility] note* Diagnosis Class 3 severe obesity with body mass index (BMI) of 50.0 to 59.9 in adult, unspecified obesity type, unspecified whether serious comorbidity present (HCC)- Primary PCOS (polycystic ovarian syndrome) Polycystic ovaries documented in this encounter [facility] note* Diagnosis Preoperative examination- Primary Preoperative examination, unspecified Morbidly obese (HCC) Morbid obesity Fatty liver Other chronic nonalcoholic liver disease Anxiety and depression Dysthymic disorder documented in this encounter [facility] note* Diagnosis Pre-op exam Preoperative examination, unspecified documented in this encounter [facility] note* Diagnosis Class 3 severe obesity with body mass index (BMI) of 50.0 to 59.9 in adult, unspecified obesity type, unspecified whether serious comorbidity present (HCC) [facility]* Diagnosis Class 3 severe obesity with body mass index (BMI) of 50.0 to 59.9 in adult, unspecified obesity type, unspecified whether serious comorbidity present (HCC)- Primary Dietary counseling and surveillance Dietary surveillance and counseling PCOS (polycystic ovarian syndrome) Polycystic ovaries documented in this encounter [facility] note* Diagnosis Class 3 severe obesity with body mass index (BMI) of 50.0 to 59.9 in adult, unspecified obesity type, unspecified whether serious comorbidity present (HCC) documented in this encounter [facility] note* Diagnosis Morbid obesity (HCC)- Primary Morbid obesity documented in this encounter [facility] noteNo assessment information availableEast [facility] Work Phone: Evaluation note* Diagnosis BMI 50.0-59.9, adult (HCC)- Primary Body Mass Index 50.0-59.9, adult Dietary counseling Dietary surveillance and counseling Morbid obesity (HCC) Morbid obesity documented in this encounter [facility] note* Diagnosis Anxiety and depression Dysthymic disorder Morbid obesity (HCC) Morbid obesity documented in this encounter [facility] note* Diagnosis BMI 50.0-59.9, adult (HCC)- Primary Body Mass Index 50.0-59.9, adult PCOS (polycystic ovarian syndrome) Polycystic ovaries History of delivery Other postprocedural status Fatty liver Other chronic nonalcoholic liver disease Morbid obesity (HCC) Morbid obesity documented in this encounter [facility] note* Diagnosis Status post gastric bypass for obesity- Primary Bariatric surgery status Obesity, Class III, BMI 40-49.9 (morbid obesity) (HCC) Morbid obesity documented in this encounter [facility] note* Diagnosis History of Cathie-en-Y gastric bypass- Primary Bariatric surgery status documented in this encounter [facility] note* Diagnosis S/P gastric bypass- Primary Bariatric surgery status Impaired intestinal absorption Unspecified intestinal malabsorption Dietary counseling and surveillance Dietary surveillance and counseling documented in this encounter [facility] note* Diagnosis S/P gastric bypass- Primary Bariatric surgery status Dietary counseling and surveillance Dietary surveillance and counseling documented in this encounter [facility] note* Diagnosis S/P gastric bypass- Primary Bariatric surgery status documented in this encounter [facility] note* Diagnosis S/P gastric bypass- Primary Bariatric surgery status Impaired intestinal absorption Unspecified intestinal malabsorption Dietary counseling and surveillance Dietary surveillance and counseling documented in this encounter [facility] general Narrative - Reported* Type Description Date Medical History PCOS Medical History chronic depression Medical History anxiety Surgical History tonsillectomy and adenoidectomy x2 Surgical History wisdom teeth Surgical History cyst removal from left foot Surgical History nasal surgery Surgical History C section Hospitalization History see above 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 Other Reason for referral (narrative)* Outpatient Procedure (Routine) - Pending Review Specialty Diagnoses / Procedures Referred By Vipin kunz Referred To Contact [facility] Diagnoses Morbid obesity due to excess calories (HCC) Procedures EGD BARIATRIC ESOPHAGOGASTRODUODENOSC OPY TRANSORAL DIAGNOSTIC Jona Johns MD [address] [place] [address] [facility] [place] [address] Referral ID Status Reason Start Date Expiration Date Visits Requested Visits Authorized [id number] Pending Review Auto-Generat ed Referral 09/29/2021 09/15/2022 [address] [facility] for referral (narrative)* Outpatient Procedure (Routine) - Authorized Specialty Diagnoses / Procedures [facility] Diagnoses Pre-op exam Procedures EGD DIAGNOSTIC ESOPHAGOGASTRODUODENOSC OPY TRANS[place] [address] [place] [address] [facility] [place] [address] Referral ID Status Reason Start Date Expiration Date Visits Requested Visits Authorized [id number] Authorized Auto-Generat ed Referral 09/16/2021 09/16/2022 [address] [facility] for referral (narrative)* Diagnostic Procedure Only (Routine) - Pending Review Specialty Diagnoses / Procedures [facility] To [facility] Diagnoses Class 3 severe obesity with body mass index (BMI) of 50.0 to 59.9 in adult, unspecified obesity type, unspecified whether serious comorbidity present (HCC) Procedures US ABD RT UPPER QUADRANT US ABDOMINAL REAL TIME W/IMAGE LIMITED Danny Cristina DO [address] [place] [address] [facility] Referral ID Status Reason Start Date Expiration Date Visits Requested Visits Authorized [id number] Pending Review Auto-Generat ed Referral 11/07/2021 12/07/2022 [...] W/LEAST 12 LDS W/I&R Danny Cristina DO [address] [place] [address] [facility] [address] [place] [id number] Referral ID Status Reason Start Date Expiration Date Visits Requested Visits Authorized [id number] Pending Review Auto-Generat ed Referral 11/07/2021 11/07/2022 [address] [facility] for referral (narrative)* Outpatient Procedure (Routine) - Closed Specialty Diagnoses / Procedures Referred By Contac t Referred To Contact [facility] Diagnoses Pre-op exam Procedures EGD DIAGNOSTIC ESOPHAGOGASTRODUODENOSC OPY TRANS[place] [address] [place] [address] [address] [place] [address] Referral ID Status Reason Start Date Expiration Date V isits Requested Visits Authorized [id number] Closed Auto-Generate d Referral 09/16/2021 09/16/2022 [address] [facility] for referral (narrative)* Diagnostic Procedure [...] TIME W/IMAGE LIMITED Danny Cristina DO [address] [place] [id number] [facility] Referral ID Status Reason Start Date Expiration Date V isits Requested Visits Authorized [id number] Closed Auto-Generate d Referral 11/07/2021 12/07/2022 [address] [facility] for visit Narrative* Outpatient Procedure (Routine) - Closed Specialty Diagnoses / Procedures Referred By Contac t Referred To Contact [facility] Diagnoses Pre-op exam Procedures EGD DIAGNOSTIC ESOPHAGOGASTRODUODENOSC OPY TRANS[place] [address] [place] [id number] [facility] [address] [place] [address] Referral ID Status Reason Start Date Expiration Date V isits Requested Visits Authorized [id number] Closed Auto-Generate d Referral 09/16/2021 09/16/2022 [facility] Procedure Only [...] TIME W/IMAGE LIMITED Danny Cristina DO [address] [facility] [address] [place] [address] Us Imaging Referral ID Status Reason Start Date Expiration Date V isits Requested Visits Authorized [id number] Closed Auto-Generate d Referral 11/07/2021 12/07/2022 1 1 [facility] Summary Purpose Family History No Family History Records FoundNo Family History Records FoundNo Family History Records FoundNo Family History Records FoundNo Family History Records FoundNo Family History Records FoundNo Family History Records FoundNo Family History Records Found Advance Directives Documents on File Type Date Recorded 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 Advance Directive(s) 10/27/2021 6:10 PM Documents on File Type Date Recorded 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 DATE CREATED AUTHOR AUTHOR'S ORGANIZ ATION 12/05/2021 [facility] DATE CREATED AUTHOR AUTHOR'S ORGANIZ ATION 01/10/2022 [facility] DATE CREATED AUTHOR AUTHOR'S ORGANIZ ATION 02/13/2022 [facility] DATE CREATED AUTHOR AUTHOR'S ORGANIZ ATION 05/08/2023 [facility] DATE CREATED AUTHOR AUTHOR'S ORGANIZ ATION 12/23/2023 [facility] DATE CREATED AUTHOR AUTHOR'S ORGANIZ ATION 03/12/[address] [facility] EPIC Source Comments (unrecognize d section and content) In the event this informatio n is protected by the Federal Confidentiality of Alcohol and Drug Abuse Patient Records regulations: The Federal rules restrict any use of the information to criminally investigate or prosecute any alcohol or drug abuse patient.[facility] the event this information is protected by the Federal Confidentiality of Alcohol and Drug Abuse Patient Records regulations: The Federal rules restrict any use of the information to criminally investigate or prosecute any alcohol or drug abuse patient.[facility] the event this information is protected by the Federal Confidentiality of Alcohol and Drug Abuse Patient Records regulations: The Federal rules restrict any use of the information to criminally investigate or prosecute any alcohol or drug abuse patient.[facility] the event this information is protected by the Federal Confidentiality of Alcohol and Drug Abuse Patient Records regulations: The Federal rules restrict any use of the information to criminally investigate or prosecute any alcohol or drug abuse patient.[facility] the event this information is protected by the Federal Confidentiality of Alcohol and Drug Abuse Patient Records regulations: The Federal rules restrict any use of the information to criminally investigate or prosecute any alcohol or drug abuse patient.[facility] the event this information is protected by the Federal Confidentiality of Alcohol and Drug Abuse Patient Records regulations: The Federal rules restrict any use of the information to criminally investigate or prosecute any alcohol or drug abuse patient.[facility] the event this information is protected by the Federal Confidentiality of Alcohol and Drug Abuse Patient Records regulations: The Federal rules restrict any use of the information to criminally investigate or prosecute any alcohol or drug abuse patient.[facility] the event this information is protected by the Federal Confidentiality of Alcohol and Drug Abuse Patient Records regulations: The Federal rules restrict any use of the information to criminally investigate or prosecute any alcohol or drug abuse patient.[facility] the event this information is protected by the Federal Confidentiality of Alcohol and Drug Abuse Patient Records regulations: The Federal rules restrict any use of the information to criminally investigate or prosecute any alcohol or drug abuse patient.[facility] the event this information is protected by the Federal Confidentiality of Alcohol and Drug Abuse Patient Records regulations: The Federal rules restrict any use of the information to criminally investigate or prosecute any alcohol or drug abuse patient.[facility] the event this information is protected by the Federal Confidentiality of Alcohol and Drug Abuse Patient Records regulations: The Federal rules restrict any use of the information to criminally investigate or prosecute any alcohol or drug abuse patient.[facility] the event this information is protected by the Federal Confidentiality of Alcohol and Drug Abuse Patient Records regulations: The Federal rules restrict any use of the information to criminally investigate or prosecute any alcohol or drug abuse patient.[facility] the event this information is protected by the Federal Confidentiality of Alcohol and Drug Abuse Patient Records regulations: The Federal rules restrict any use of the information to criminally investigate or prosecute any alcohol or drug abuse patient.[facility] the event this information is protected by the Federal Confidentiality of Alcohol and Drug Abuse Patient Records regulations: The Federal rules restrict any use of the information to criminally investigate or prosecute any alcohol or drug abuse patient.[facility] the event this information is protected by the Federal Confidentiality of Alcohol and Drug Abuse Patient Records regulations: The Federal rules restrict any use of the information to criminally investigate or prosecute any alcohol or drug abuse patient.[facility] the event this information is protected by the Federal Confidentiality of Alcohol and Drug Abuse Patient Records regulations: The Federal rules restrict any use of the information to criminally investigate or prosecute any alcohol or drug abuse patient.[facility] the event this information is protected by the Federal Confidentiality of Alcohol and Drug Abuse Patient Records regulations: The Federal rules restrict any use of the information to criminally investigate or prosecute any alcohol or drug abuse patient.[facility] the event this information is protected by the Federal Confidentiality of Alcohol and Drug Abuse Patient Records regulations: The Federal rules restrict any use of the information to criminally investigate or prosecute any alcohol or drug abuse patient.[facility] the event this information is protected by the Federal Confidentiality of Alcohol and Drug Abuse Patient Records regulations: The Federal rules restrict any use of the information to criminally investigate or prosecute any alcohol or drug abuse patient.[facility] HospitalIn the event this information is protected by the Federal Confidentiality of Alcohol and Drug Abuse Patient Records regulations: The Federal rules restrict any use of the information to criminally investigate or prosecute any alcohol or drug abuse patient.[facility] HospitalIn the event this information is protected by the Federal Confidentiality of Alcohol and Drug Abuse Patient Records regulations: The Federal rules restrict any use of the information to criminally investigate or prosecute any alcohol or drug abuse patient.[facility] HospitalIn the event this information is protected by the Federal Confidentiality of Alcohol and Drug Abuse Patient Records regulations: The Federal rules restrict any use of the information to criminally investigate or prosecute any alcohol or drug abuse patient.[facility] Hospital[facility] the event this information is protected by the Federal Confidentiality of Alcohol and Drug Abuse Patient Records regulations: The Federal rules restrict any use of the information to criminally investigate or prosecute any alcohol or drug abuse patient.[facility] Hospital[facility] the event this information is protected by the Federal Confidentiality of Alcohol and Drug Abuse Patient Records regulations: The Federal rules restrict any use of the information to criminally investigate or prosecute any alcohol or drug abuse patient.[facility] Reason for Visit (unrecogniz ed section [...] 12 LDS W/I&R Danny Cristina DO [address] [facility] [address] [place] [address] [facility] [address] [place] [address] Referral ID Status Reason Start Date Expiration Date V isits Requested Visits Authorized [id number] Closed Auto-Generate d Referral 11/07/2021 11/07/2022 1 [...] December 01, 2023 End: December 01, 2023 Administrative Professional Relationship Specialty Start Date End Date Pcp, No PCP - General 10/27/21 Administrative Professional Relationship Specialty Start Date End Date Pcp, No PCP - General 10/27/21 Administrative Professional Relationship Specialty Start Date End Date Pcp, No PCP - General 10/27/21 Administrative Professional Relationship Specialty Start Date End Date Marco A Byrd MD [address] [facility], [id number] PCP - General Family Practice 11/26/21 Administrative Professional Relationship Specialty Start Date End Date Marco A Byrd MD [address] [facility], [id number] PCP - General Family Practice 11/26/21 Administrative Professional Relationship Specialty Start Date End Date Marco A Byrd MD [address] [facility] [place] [address] PCP - General Family Practice 11/26/21 Administrative Professional Relationship Specialty Start Date End Date Marco A Byrd MD [address] [facility] [address] PCP - General Family Practice 11/26/21 Administrative Professional Relationship Specialty Start Date End Date Marco A Byrd MD [address] [facility], [facility] PCP - General Family Practice 11/26/21 Administrative Professional Relationship Specialty Start Date End Date Marco A Byrd MD [address] [facility], [facility] PCP - General Family Practice 11/26/21 Administrative Professional Relationship Specialty Start Date End Date Marco A Byrd MD [address] [facility], [facility] PCP - General Family Practice 11/26/21 Team Status: Inactive Member Role Status Dates PHYSICIAN NO FAMILY Primary Care Provider Active Danis Tubbs , DO IQBAL Attending Provider Active Administrative Professional Relationship Specialty Start Date End Date Marco A Byrd MD [address] [facility] [address] PCP - General Family Medicine 11/26/21 Administrative Professional Relationship Specialty Start Date End Date Marco A Byrd MD [address] [facility] [address] PCP - General Family Medicine 11/26/21 Administrative Professional Relationship Specialty Start Date End Date Marco A Byrd MD [address] [facility] [place] [address] PCP - General Family Medicine 11/26/21 Administrative Professional Relationship Specialty Start Date End Date Marco A Byrd MD [address] [facility] [address] PCP - General Family Medicine 11/26/21 Administrative Professional Relationship Specialty Start Date End Date Marco A Byrd MD [address] [facility] [address] PCP - General Family Medicine 11/26/21 Administrative Professional Relationship Specialty Start Date End Date Marco A Byrd MD [address] [place] [facility] [place] [address] PCP - General Family Medicine 11/26/21 Administrative Professional Relationship Specialty Start Date End Date Marco A Byrd MD [address] [place] [facility] [place] [address] PCP - General Family Medicine 11/26/21 Administrative Professional Relationship Specialty Start Date End Date Marco A Byrd MD [address] [place] [facility] [address] PCP - General Family Medicine 11/26/21 Team Status: Inactive Member Role Status Dates Colby Peña Attending Provider Active Start: Ju ly 2023 End: December 08, 2023 Team Status: Active Member Role Status Dates NON STAFF Primary Care Provider Active Team Status: Inactive Member Role Status Dates Alisa Júnior Aceves APRN Attending Provider Active Start: March 09, 2024 End: March 09, 2024 NON STAFF Primary Care Provider Active Start: March 09, 2024 End: March 09, 2024 Goals (unrecognized section and content) Goals may [...] BE BASED ON THE PRIMARY CLINICAL RECORDS. [employer] provides no warranty or guarantee of the accuracy or completeness of information in this document.
== END 2024-03-16 12:35 | disposition home or self-care (01) ==
LOC: NOMS 12:34
PROVIDERS: PCP Family Medicine; Visit Provider Obstetrics & Gynecology
DX: Z34.91 Encounter for supervision of normal pregnancy, unspecified, first trimester (principal); Z3A.09 9 weeks gestation of pregnancy
CPT/HCPCS: 76817

== ENCOUNTER 2024-03-16 14:17 | Outpatient (OUT) | payer OTHER, SELFPAY ==
[2024-03-16 14:39] LABS: Basophils Absolute Auto 0.1 10^3/uL (0.0-0.1); Basophils Percent Auto 0.8 % (0.2-2.0); Eosinophils Absolute Auto 0.1 10^3/uL (0.0-0.7); Eosinophils Percent Auto 0.8 % (0.9-7.0); Hematocrit 40.7 % (36.0-48.0); Hemoglobin 13.7 g/dL (12.0-16.0); Immature Granulocytes Abs Auto 0.01 10^3/uL (0.00-0.03); Immature Granulocytes Pct Auto 0.1 % (0.0-0.5); Lymphocytes Absolute Auto 2.8 10^3/uL (1.2-3.8); Lymphocytes Percent Auto 37.1 % (20.5-60.0); Mean Corpuscular HGB Conc 33.7 g/dL (29.9-35.2); Mean Corpuscular Volume 89.1 fL (81.0-99.0); Mean Platelet Volume 10.5 fL (9.5-13.5); Monocytes Absolute Auto 0.3 10^3/uL (0.3-0.8); Monocytes Percent Auto 4.1 % (1.7-12.0); Neutrophils Absolute Auto 4.4 10^3/uL (1.4-6.5); Neutrophils Percent Auto 57.1 % (43.0-75.0); Platelet Count 217 10^3/uL (150-450); Red Blood Count 4.57 10^6/uL (4.20-5.40); Red Cell Distribution Width 12.2 % (11.0-15.0); White Blood Count 7.6 10^3/uL (4.0-11.0)
--- OUTSIDE RECORDS SUMMARY | 2024-03-16 14:41 | XMS_ITS | CCD ---
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 01-05-2022 Cholesterol in VLDL [Mass/Vol] 33 mg/dL [facility] Creatinine and Glomerular fi ltration rate.predicted panel (S/P/Bld)Ordered By: Danis Tubbs on 01-05-2022 Creatinine [Mass/Vol] 0.61 mg/dL 0.44-1.03 [facility] Eosinophils Auto (Bld) [#/Vo l]Ordered By: Danis Tubbs on 01-05-2022 Eosinophils (Bld) [#/Vol] 0.1 10*3/uL 0.0-0.45 [facility] Eosinophils/100 WBC Auto (Bl d)Ordered By: Danis Tubbs on 01-05-2022 Eosinophils/100 WBC (Bld) 2.2 % . [facility] Erythrocyte distribution wid th Auto (RBC) [Ratio]Ordered By: Danis Tubbs on 01-05-2022 Erythrocyte distribution width (RBC) [Ratio] 13.0 % 11.9-15.3 [facility] Estimated glomerular filtrat ion rate (GFR) non- AmericanOrdered By: Danis Tubbs on 01-05-2022 GFR/1.73 sq M.predicted among non-blacks MDRD (S/P/Bld) [Vol rate/Area] > 60 mL/Min [facility] Globulin Calc (S) [Mass/Vol] Ordered By: Danis Tubbs on 01-05-2022 Globulin (S) [Mass/Vol] 2.7 g/dL [facility] Hematocrit Auto (Bld) [Volum e fraction]Ordered By: Danis Tubbs on 01-05-2022 Hematocrit (Bld) [Volume fraction] 41.9 % 34.0-46.4 [facility] Laboratory - Hematology and Cell countsOrdered By: Danis Tubbs on 01-05-2022 Nucleated RBC/100 WBC (Bld) [Ratio] 0.1 % 0-0.5 [facility] Lymphocytes Auto (Bld) [#/Vo l]Ordered By: Danis Tubbs on 01-05-2022 Lymphocytes (Bld) [#/Vol] 2.4 10*3/uL 1.00-4.8 [facility] Lymphocytes/100 WBC Auto (Bl d)Ordered By: Danis Tubbs on 01-05-2022 Lymphocytes/100 WBC (Bld) 47.4 % . [facility] MCH Auto (RBC) [Entitic mass ]Ordered By: Danis Tubbs on 01-05-2022 MCH (RBC) [Entitic mass] 30.1 pg 24.7-34.3 [facility] MCHC Auto (RBC) [Mass/Vol]Or dered By: Danis Tubbs on 01-05-2022 MCHC (RBC) [Mass/Vol] 34.0 g/dL 32.0-35.0 [facility] MCV Auto (RBC) [Entitic vol] Ordered By: Danis Tubbs on 01-05-2022 MCV (RBC) [Entitic vol] 88.3 fL 80-100 [facility] Monocytes Auto (Bld) [#/Vol] Ordered By: Danis Tubbs on 01-05-2022 Monocytes (Bld) [#/Vol] 0.3 10*3/uL 0.0-0.8 [facility] Monocytes/100 WBC Auto (Bld) Ordered By: Danis Tubbs on 01-05-2022 Monocytes/100 WBC (Bld) 6.6 % . [facility] Neutrophils Auto (Bld) [#/Vo l]Ordered By: Danis Tubbs on 01-05-2022 Neutrophils (Bld) [#/Vol] 2.2 10*3/uL 1.8-7.7 [facility] Neutrophils/100 WBC Auto (Bl d)Ordered By: Danis Tubbs on 01-05-2022 Neutrophils/100 WBC (Bld) 43.0 % . [facility] No Panel InformationOrdered By: Danis Tubbs on 01-05-2022 Estimated GFR () > 60 mL/Min [facility] Comment on above: GFR estimated refere nce range: According to KDOQI guidelines, <60 ml/min/1.73m2 is sufficient to diagnose a patient with chronic kidney disease. Pharmacy Creatinine Clearance (Chem N/A [facility] Platelet mean volume Auto (B ld) [Entitic vol]Ordered By: Danis Tubbs on 01-05-2022 Platelet mean volume (Bld) [Entitic vol] 9.0 fL 6.3-10.7 [facility] Platelets Auto (Bld) [#/Vol] Ordered By: Danis Tubbs on 01-05-2022 Platelets (Bld) [#/Vol] 207 10*3/uL 150-450 [facility] Protein [Mass/volume] in Ser um or PlasmaOrdered By: Danis Tubbs on 01-05-2022 Protein [Mass/Vol] 6.9 g/dL 6.1-7.9 [facility] RBC Auto (Bld) [#/Vol]Ordere d By: Danis Tubbs on 01-05-2022 RBC (Bld) [#/Vol] 4.75 10*6/uL 3.60-5.00 [facility] Serum or plasma alanine woodruff otransferase measurement without P-5'-P (enzymatic activiOrdered By: Danis Tubbs on 01-05-2022 ALT No additional P-5'-P [Catalytic activity/Vol] 32 U/L 10-60 [facility] Serum or plasma albumin/glob ulin mass ratioOrdered By: Danis Tubbs on 01-05-2022 Albumin/Globulin [Mass ratio] 1.6 {ratio} [facility] Serum or plasma alkaline ronnell sphatase measurement (enzymatic activity/volume)Ordered By: Danis Tubbs on 01-05-2022 ALP [Catalytic activity/Vol] 36 U/L 32-92 [facility] Serum or plasma aspartate am inotransferase measurement (enzymatic activity/volume)Ordered By: Danis Tubbs on 01-05-2022 AST [Catalytic activity/Vol] 22 U/L 10-42 [facility] Serum or plasma calcium emelia urement (mass/volume)Ordered By: Danis Tubbs on 01-05-2022 Calcium [Mass/Vol] 9.4 mg/dL 8.2-10.2 [facility] Serum or plasma chloride pradeep surement (moles/volume)Ordered By: Danis Tubbs on 01-05-2022 Chloride [Moles/Vol] 103 mmol/L 95-114 [facility] Serum or plasma glucose emelia urement (mass/volume)Ordered By: Danis Tubbs on 01-05-2022 Glucose [Mass/Vol] 108 mg/dL 70-100 [facility] Comment on above: ADA recommended refe rence range Random Glucose Reference Range is dependent on time and content of last meal. Glucose of more than 200 mg/dL in a nonstressed, ambulatory subject supports the diagnosis of Diabetes Mellitus. Serum or plasma high density lipoprotein (HDL) cholesterol measurementOrdered By: Danis Tubbs on 01-05-2022 Cholesterol in HDL [Mass/Vol] 37 mg/dL 35-85 [facility] Comment on above: HDL CHOL ATP-III CLA SSIFICATION Cardiovascular Risk HDL > or equal to 60 mg/dL LOW HDL < 40 mg/dL HIGH Serum or plasma potassium me asurement (moles/volume)Ordered By: Danis Tubbs on 01-05-2022 Potassium [Moles/Vol] 4.1 mmol/L 3.5-5.1 [facility] Serum or plasma sodium measu rement (moles/volume)Ordered By: Danis Tubbs on 01-05-2022 Sodium [Moles/Vol] 136 mmol/L 136-146 [facility] Serum or plasma total biliru bin measurement (mass/volume)Ordered By: Danis Tubbs on 01-05-2022 Bilirubin [Mass/Vol] 0.3 mg/dL 0.3-1.2 [facility] Serum or plasma total carbon dioxide measurement (moles/volume)Ordered By: Danis Tubbs on 01-05-2022 CO2 [Moles/Vol] 23.0 mmol/L 22.0-30.0 [facility] Serum or plasma total choles terol/high density lipoprotein (HDL) cholesterol mass ratOrdered By: Danis Tubbs on 01-05-2022 Cholesterol.total/Tia sterol in HDL [Mass ratio] 5.7 {ratio} <5.0 [facility] Serum or plasma urea nitroge n measurement (mass/volume)Ordered By: Danis Tubbs on 01-05-2022 Urea nitrogen [Mass/Vol] 12 mg/dL 9-23 [facility] TSH DL <= 0.005 mIU/L QnOrde red By: Danis Tubbs on 01-05-2022 TSH Qn 3.27 m[IU]/L 0.45-5.33 [facility] Triglyceride [Mass/volume] i n Serum or PlasmaOrdered [...] 25-hydroxyvitamin D3 [Mass/Vol] 16.7 ng/mL Low 31.0-80.0 [facility] Comment on above: Order Comment: Speci men Type: BLOOD SPECIMEN Ordering Facility: [facility] Address: [address] [place] [address] Result Comment: Clas sification of 25 [place] Vitamin D status: Deficiency/Insufficiency: < or = 30 ng/ml. Sufficiency/Optimal Levels: 31-80 ng/mL Toxicity: > 100 ng/mL. Test performed by chemiluminescent immunoassay. Performed By: #### 1 989-3 #### [facility] CLIA [id number] [address] [place], [place] [address] [address] [place] CBC W Auto Differential pane l (Bld)on 12-01-2021 Basophils (Bld) [#/Vol] 0.07 10*3/uL Normal <0.11 [facility] Comment on above: Order Comment: Speci [facility] Type: BLOOD SPECIMEN Ordering Facility: [facility] Address: [address] [place] [address] Performed By: #### 5 7021-8 #### [facility] [place] [id number] [address] [place] [address] [place] Basophils/100 WBC (Bld) 1.3 % Normal [facility] Comment on above: Order Comment: Speci men Type: BLOOD SPECIMEN Ordering Facility: [facility] Address: [address] [place] [address] Performed By: #### 5 7021-8 #### [facility] CLIA [id number] STATES OF [facility] Differential cell count method Nom (Bld) Auto Normal [facility] Comment on above: Order Comment: Speci [facility] Type: BLOOD SPECIMEN Ordering Facility: [facility] Address: [address] [place] [address] Performed By: #### 5 7021-8 #### [facility] CLIA [id number] [address] [place] [address] [place] Eosinophils (Bld) [#/Vol] 0.10 10*3/uL Normal <0.46 [facility] Comment on above: Order Comment: Speci men Type: BLOOD SPECIMEN Ordering Facility: [facility] Address: [address] [place] [address] Performed By: #### 5 7021-8 #### [facility] CLIA [id number] [address] [place] [address] [place] Eosinophils/100 WBC (Bld) 1.9 % Normal [facility] Comment on above: Order Comment: Speci men Type: BLOOD SPECIMEN Ordering Facility: [facility] Address: [address] [place] [address] Performed By: #### 5 7021-8 #### [facility] IA [id number] [address] [place] [address] [place] Erythrocyte distribution width (RBC) [Ratio] 12.3 % Normal 11.5-15.0 [facility] Comment on above: Order Comment: Speci men Type: BLOOD SPECIMEN Ordering Facility: [facility] Address: [address] [place] [address] Performed By: #### 5 7021-8 #### [facility] IA [id number] [address] [place] [address] [place] Hematocrit (Bld) [Volume fraction] 44.0 % Normal 36.0-46.0 [facility] Comment on above: Order Comment: Speci men Type: BLOOD SPECIMEN Ordering Facility: [facility] Address: [address] [place] [address] Performed By: #### 5 7021-8 #### [facility] IA [id number] [address] [place] [address] [place] Hemoglobin (Bld) [Mass/Vol] 14.3 g/dL Normal 11.5-15.5 [facility] Comment on above: Order Comment: Speci men Type: BLOOD SPECIMEN Ordering Facility: [facility] Address: [address] [place] [address] Performed By: #### 5 7021-8 #### [facility] IA [id number] [address] [place] IMMATURE GRAN % 0.6 % Normal [facility] ital Comment on above: Order Comment: Speci men Type: BLOOD SPECIMEN Ordering Facility: [facility] Address: [address] [place] [address] Performed By: #### 5 7021-8 #### [facility] IA [id number] [place] IMMATURE GRAN ABS 0.03 k/uL Normal <0.10 [facility] Comment on above: Order Comment: Speci men Type: BLOOD SPECIMEN Ordering Facility: [facility] Address: [address] [place] [address] Performed By: #### 5 7021-8 #### [facility] [id number] [address] [place] [address] [place] Lymphocytes (Bld) [#/Vol] 2.30 10*3/uL Normal 1.00-4.00 [facility] Comment on above: Order Comment: Speci men Type: BLOOD SPECIMEN Ordering Facility: [facility] Address: [address] [place] [address] Performed By: #### 5 7021-8 #### [facility] [id number] [address] [place] [address] [place] Lymphocytes/100 WBC (Bld) 43.3 % Normal [facility] Comment on above: Order Comment: Speci men Type: BLOOD SPECIMEN Ordering Facility: [facility] Address: [address] [place] [address] Performed By: #### 5 7021-8 #### [facility] IA [id number] [place] [address] [place] MCH (RBC) [Entitic mass] 29.9 pg Normal 26.0-34.0 [facility] Comment on above: Order Comment: Speci men Type: BLOOD SPECIMEN Ordering Facility: [facility] Address: [address] [place], [place] [id number] Performed By: #### 5 7021-8 #### [facility] IA [id number] [address] OF [facility] MCHC (RBC) [Mass/Vol] 32.5 g/dL Normal 30.5-36.0 [facility] Comment on above: Order Comment: Speci men Type: BLOOD SPECIMEN Ordering Facility: [facility] Address: [address] [place], [place] [id number] Performed By: #### 5 7021-8 #### [facility] IA [id number] [address] [place] [address] OF [facility] MCV (RBC) [Entitic vol] 91.9 fL Normal 80.0-100.0 [facility] Comment on above: Order Comment: Speci men Type: BLOOD SPECIMEN Ordering Facility: [facility] Address: [address] [place], [place] [id number] Performed By: #### 5 7021-8 #### [facility] [place] [id number] [address] [place] [address] OF [facility] Monocytes (Bld) [#/Vol] 0.29 10*3/uL Normal <0.87 [facility] Comment on above: Order Comment: Speci men Type: BLOOD SPECIMEN Ordering Facility: [facility] Address: [address] [place], [place] [id number] Performed By: #### 5 7021-8 #### [facility] IA [id number] [address] OF [facility] Monocytes/100 WBC (Bld) 5.5 % Normal [facility] Comment on above: Order Comment: Speci men Type: BLOOD SPECIMEN Ordering Facility: [facility] Address: [address] [place], [place] [id number] Performed By: #### 5 7021-8 #### [facility] IA [id number] [address] [place] [address] [place] Neutrophils (Bld) [#/Vol] 2.52 10*3/uL Normal 1.45-7.50 [facility] Comment on above: Order Comment: Speci men Type: BLOOD SPECIMEN Ordering Facility: [facility] Address: [address] Performed By: #### 5 7021-8 #### [facility] CLIA [id number] [address] [place] [address] [place] Neutrophils/100 WBC (Bld) 47.4 % Normal [facility] Comment on above: Order Comment: Speci men Type: BLOOD SPECIMEN Ordering Facility: [facility] Address: [address] [place], [place] [id number] Performed By: #### 5 7021-8 #### [facility] CLIA [id number] [address] [place] [address] [place] Nucleated RBC (Bld) [#/Vol] 10*3/uL Normal <0.01 [facility] Comment on above: Order Comment: Speci men Type: BLOOD SPECIMEN Ordering Facility: [facility] Address: [address] [place], [place] [address] Performed By: #### 5 7021-8 #### [facility] CLIA [id number] [address] [place] [address] [place] Nucleated RBC/100 WBC (Bld) [Ratio] 0.0 /100 WBC Normal [facility] Comment on above: Order Comment: Speci men Type: BLOOD SPECIMEN Ordering Facility: [facility] Address: [address] [place], [place] [address] Performed By: #### 5 7021-8 #### [facility] CLIA [id number] [address] [place] [address] [place] Platelet mean volume (Bld) [Entitic vol] 11.2 fL Normal 9.0-12.7 [facility] Comment on above: Order Comment: Speci men Type: BLOOD SPECIMEN Ordering Facility: [facility] Address: [address] [place], [place] [id number] Performed By: #### 5 7021-8 #### [facility] CLIA [id number] [address] [place], [place] [id number] [place] [address] OF [facility] Platelets (Bld) [#/Vol] 168 10*3/uL Normal 150-400 [facility] Comment on above: Order Comment: Speci men Type: BLOOD SPECIMEN Ordering Facility: [facility] Address: [address] [place], [place] [id number] Result Comment: Resu lts checked and verified. No clot detected Performed By: #### 5 7021-8 #### [facility] CLIA [id number] [address] [place], [place] [address] [place] [address] [place] RBC (Bld) [#/Vol] 4.79 10*6/uL Normal 3.90-5.20 [facility] Comment on above: Order Comment: Speci men Type: BLOOD SPECIMEN Ordering Facility: [facility] Address: [address] [place], [place] [id number] Performed By: #### 5 7021-8 #### [facility] CLIA [id number] [address] [place] [address] [place] WBC (Bld) [#/Vol] 5.31 10*3/uL Normal 3.70-11.00 [facility] Comment on above: Order Comment: Speci men Type: BLOOD SPECIMEN Ordering Facility: [facility] Address: [address] [place], [place] [id number] Performed By: #### 5 7021-8 #### [facility] CLIA [id number] [facility] [place] [address] [facility] Comprehensive metabolic 2000 panelon 12-01-2021 Albumin [Mass/Vol] 4.5 g/dL Normal 3.9-4.9 [facility] Comment on above: Order Comment: Speci men Type: BLOOD SPECIMEN Ordering Facility: [facility] Address: [address] [place] [address] Performed By: #### 2 4323-8, 3016-3, 25705-7, 22913-4 #### [facility] CLIA [id number] [address] [place] [address] [place] ALP [Catalytic activity/Vol] 46 U/L Normal 34-123 [facility] Comment on above: Order Comment: Speci men Type: BLOOD SPECIMEN Ordering Facility: [facility] Address: [address] [place] [address] Performed By: #### 2 4323-8, 3016-3, 38267-3, 68385-0 #### [facility] CLIA [id number] [address] [place] [address] [place] ALT [Catalytic activity/Vol] 21 U/L Normal 7-38 [facility] Comment on above: Order Comment: Speci men Type: BLOOD SPECIMEN Ordering Facility: [facility] Address: [address] [place] [address] Performed By: #### 2 4323-8, 3016-3, 07862-8, 25084-7 #### [facility] CLIA [id number] [address] [place] [address] [place] Anion gap [Moles/Vol] 10 mmol/L Normal 9-18 [facility] Comment on above: Order Comment: Speci men Type: BLOOD SPECIMEN Ordering Facility: [facility] Address: [address] [place] [address] Performed By: #### 2 4323-8, 3016-3, 96218-7, 99486-5 #### [facility] CLIA [id number] [address] [place] [address] [place] AST [Catalytic activity/Vol] 18 U/L Normal 13-35 [facility] Comment on above: Order Comment: Speci men Type: BLOOD SPECIMEN Ordering Facility: [facility] Address: [address] [place] [address] Performed By: #### 2 4323-8, 3016-3, 97811-1, 82072-9 #### [facility] CLIA [id number] [address] [place] [address] [place] Bilirubin [Mass/Vol] 0.3 mg/dL Normal 0.2-1.3 [facility] Comment on above: Order Comment: Speci men Type: BLOOD SPECIMEN Ordering Facility: [facility] Address: [address] [place], [place] [address] [address] Performed By: #### 2 4323-8, 3016-3, 13768-9, 64092-9 #### [facility] CLIA [id number] [address] [place] [address] [place] Calcium [Mass/Vol] 9.2 mg/dL Normal 8.5-10.2 [facility] Comment on above: Order Comment: Speci men Type: BLOOD SPECIMEN Ordering Facility: [facility] Address: [address] [place] [address] Performed By: #### 2 4323-8, 3016-3, 20641-4, 22697-0 #### [facility] CLIA [id number] [address] [place] [address] [place] Chloride [Moles/Vol] 104 mmol/L Normal 97-105 [facility] Comment on above: Order Comment: Speci men Type: BLOOD SPECIMEN Ordering Facility: [facility] Address: [address] [place], [place] [address] [address] Performed By: #### 2 4323-8, 3016-3, 90966-5, 16487-5 #### [facility] CLIA [id number] [address] [place] [address] [place] CO2 [Moles/Vol] 23 mmol/L Normal 22-30 [facility] ital Comment on above: Order Comment: Speci men Type: BLOOD SPECIMEN Ordering Facility: THE [facility] Address: [address] [place], [place] [id number] Performed By: #### 2 4323-8, 3016-3, 35418-7, 18447-5 #### [facility] CLIA [id number] [address] [place] [address] [place] Creatinine [Mass/Vol] 0.57 mg/dL Low 0.58-0.96 [facility] Comment on above: Order Comment: Rangel zamora Type: BLOOD SPECIMEN Ordering Facility: [facility] Address: [address] [id number] Performed By: #### 2 4323-8, 3016-3, 24521-7, 35623-5 #### [facility] CLIA [id number] [address] [place] [address] [place] ESTIMATED GLOMERULAR FILTRATION RATE 124 mL/min/1.73m??? Normal >=60 [facility] Comment on above: Order Comment: Rangel zamora Type: BLOOD SPECIMEN Ordering Facility: [facility] Address: [address] [place], [place] [id number] Result Comment: Aleksandra mated Glomerular Filtration Rate [...] GFR. Performed By: #### 2 4323-8, 3016-3, 89739-2, 04187-8 #### [facility] CLIA [id number] [address] [place] [address] [place] Glucose [Mass/Vol] 112 mg/dL High 74-99 [facility] Comment on above: Order Comment: Rangel zamora Type: BLOOD SPECIMEN Ordering Facility: [facility] Address: [address] [id number] Result Comment: The [place] Diabetes Association (ADA) provides guidance for cutoff [...] Standards of Medical Care in Diabetes 2016, [place] Diabetes Association. Diabetes Care. 2016.39(Suppl 1). Performed By: #### 2 4323-8, 3016-3, 85343-2, 84020-6 #### [facility] CLIA [id number] [address] [place] [address] [place] Potassium [Moles/Vol] 4.5 mmol/L Normal 3.7-5.1 [facility] Comment on above: Order Comment: Speci men Type: BLOOD SPECIMEN Ordering Facility: [facility] Address: [address] [place] [address] Performed By: #### 2 4323-8, 3016-3, 56497-7, 64594-2 #### [facility] CLIA [id number] [address] [place] [address] [place] Protein [Mass/Vol] 7.4 g/dL Normal 6.3-8.0 [facility] Comment on above: Order Comment: Speci men Type: BLOOD SPECIMEN Ordering Facility: [facility] Address: [address] [place] [address] Performed By: #### 2 4323-8, 3016-3, 40949-6, 48659-3 #### [facility] CLIA [id number] [address] [place] [address] [place] Sodium [Moles/Vol] 137 mmol/L Normal 136-144 [facility] Comment on above: Order Comment: Speci men Type: BLOOD SPECIMEN Ordering Facility: [facility] Address: [address] Performed By: #### 2 4323-8, 3016-3, 21733-4, 93534-0 #### [facility] CLIA [id number] [address] [place] [address] [place] Urea nitrogen [Mass/Vol] 12 mg/dL Normal 7-21 [facility] Comment on above: Order Comment: Speci men Type: BLOOD SPECIMEN Ordering Facility: [facility] Address: [address] [phone] Performed By: #### 2 4323-8, 3016-3, 39677-8, 58677-7 #### [facility] CLIA [id number] [address] [place], [place] [address] [place] [address] [place] Ferritin SerPl-ncon 2021 Ferritin [Mass/Vol] 177.6 ng/mL Normal 14.7-205.1 [facility] Comment on above: Order Comment: Speci men Type: BLOOD SPECIMEN Ordering Facility: [facility] Address: [address] [place], [place] [address] Performed By: #### 2 4323-8, 3016-3, 19150-1, 39783-3 #### [facility] CLIA [id number] [address] [facility]. [address] [place] Folate SerPl-ncon 12-02-19 Folate [Mass/Vol] 9.3 ng/mL Normal >4.7 [facility] Comment on above: Order Comment: Speci men Type: BLOOD SPECIMEN Ordering Facility: [facility] Address: [address] [place] [address] Performed By: #### 2 4323-8, 3016-3, 87348-4, 55284-3 #### [facility] CLIA [id number] [address] [place], [place] [address] [place] [address] [place] HbA1c (Bld)on 12-01-2021 Average glucose Estimated from glycated hemoglobin (Bld) [Mass/Vol] 108 mg/dL Normal [facility] Comment on above: Order Comment: Speci [facility] Type: BLOOD SPECIMEN Ordering Facility: [facility] Address: [address] [place] [address] Result Comment: eAG: (Estimated average glucose) is a calculated value from HgbA1c and is associate sales representative of the average blood glucose level in the last 2-3 month period. Performed By: #### 2 4323-8, 3016-3, 94839-2, 65808-0 #### [facility] CLIA [id number] [address] [place], [place] [address] [place] [address] [place] HbA1c (Bld) [Mass fraction] 5.4 % Normal 4.3-5.6 [facility] Comment on above: Order Comment: Rangel zamora Type: BLOOD SPECIMEN Ordering Facility: [facility] Address: [address] [address] Result Comment: Amer ican Diabetes Association guidelines indicate that patients with HgbA1c in the range 5.7-6.4% are at increased risk for development of diabetes, and intervention by lifestyle modification may be beneficial. HgbA1c greater or equal to 6.5% is considered diagnostic of diabetes. Performed By: #### 2 4323-8, 3016-3, 87670-5, 06987-3 #### [facility] CLIA [id number] [address] [place], [place] [address] [place] [address] [place] Iron and Iron binding capaci [facility] 12-01-2021 Iron [Mass/Vol] 69 ug/dL Normal 41-186 [facility] Comment on above: Order Comment: Rangel zamora Type: BLOOD SPECIMEN Ordering Facility: [facility] Address: [address] [place] [address] Performed By: #### 2 4323-8, 3016-3, 46122-5, 66671-5 #### [facility] CLIA [id number] [address] [place] [address] [place] Iron binding capacity [Mass/Vol] 296 ug/dL Normal 232-386 [facility] Comment on above: Order Comment: Rangel zamora Type: BLOOD SPECIMEN Ordering Facility: [facility] Address: [address] Performed By: #### 2 4323-8, 3016-3, 61997-3, 91095-0 #### [facility] CLIA [id number] [address] OF [facility] Iron/TIBC [Molar ratio] 23.3 % Normal 15.0-57.0 [facility] Comment on above: Order Comment: Rangel zamora Type: BLOOD SPECIMEN Ordering Facility: [facility] Address: [address] [place] [address] Performed By: #### 2 4323-8, 3016-3, 52782-5, 24930-2 #### [facility] CLIA [id number] [address] [place] [address] [facility] [place] Lipid 1996 panelon 2 Cholesterol [Mass/Vol] 229 mg/dL High <200 [facility] Comment on above: Order Comment: Speci men Type: BLOOD SPECIMEN Ordering Facility: [facility] Address: [address] Result Comment: <200 mg/dL, Desirable 200-239 mg/dL, Borderline high >239 mg/dL, High Performed By: #### 2 4323-8, 3016-3, 89552-7, 97254-6 #### [facility] CLIA [id number] [address] [place], [place] [address] [place] [address] [place] Cholesterol in HDL [Mass/Vol] 39 mg/dL Low >39 [facility] Comment on above: Order Comment: [place] [facility] Type: BLOOD SPECIMEN Ordering Facility: [facility] Address: [address] Result Comment: 40-5 9 mg/dL, Acceptable >59 mg/dL, High: Negative risk factor for coronary heart disease <40 mg/dL, Low: Positive risk factor for coronary heart disease Performed By: #### 2 4323-8, 3016-3, 56640-0, 39645-1 #### [facility] CLIA [id number] [address] [place] [address] [facility] Cholesterol in LDL [Mass/Vol] 155 mg/dL High <100 [facility] Comment on above: Order Comment: [place] [facility] Type: BLOOD SPECIMEN Ordering Facility: [facility] Address: [address] Result Comment: <100 mg/dL, Optimal 100-129 mg/dL, Near optimal/above optimal 130-159 mg/dL, Borderline high 160-189 mg/dL, High >189 mg/dL, Very high Secondary prevention optimal LDL Cholesterol levels are recommended to be < 70 mg/dL Performed By: #### 2 4323-8, 3016-3, 82179-3, 98680-2 #### [facility] CLIA [id number] [address] [facility] [place] [address] [facility] [place] Cholesterol in LDL/Cholesterol in HDL [Mass ratio] 3.97 {ratio} High <2.54 [facility] Comment on above: Order Comment: Rangel zamora Type: BLOOD SPECIMEN Ordering Facility: [facility] Address: [address] [address] Result Comment: Refe rence: 1. National Cholesterol Education Program ATP III Guideline At-A-Glance Quick Desk Reference: National Heart, Lung, and Blood [place]. National Institutes of Health. 2001: NIH Publication No. 01-3305. 2. An International Atherosclerosis Society position paper: global recommendations for the management of dyslipidemia: executive summary, Atherosclerosis. 2014: 232(2):410-413. Performed By: #### 2 4323-8, 3016-3, 78158-7, 59787-9 #### [facility] CLIA [id number] [address] [facility] [place] [address] [place] Cholesterol in VLDL [Mass/Vol] 35 mg/dL High <30 [facility] Comment on above: Order Comment: Rangel zamora Type: BLOOD SPECIMEN Ordering Facility: [facility] Address: [address] [place] [address] Performed By: #### 2 4323-8, 3016-3, 12818-2, 93047-6 #### [facility] CLIA [id number] [address] [facility] [place] [address] [place] Cholesterol non HDL [Mass/Vol] 190 mg/dL High <130 [facility] Comment on above: Order Comment: Rangel zamora Type: BLOOD SPECIMEN Ordering Facility: [facility] Address: [address] [address] Result Comment: <130 mg/dL, Optimal 130-159 mg/dL, Near optimal/above optimal 160-189 mg/dL, Borderline high 190-219 mg/dL, High >219 mg/dL, Very high Secondary prevention optimal non HDL Cholesterol levels are recommended to be <100 mg/dL Performed By: #### 2 4323-8, 3016-3, 55186-8, 38165-2 #### [facility] CLIA [id number] [address] [place], [place] [address] [place] [address] OF [facility] Cholesterol.total/Tia sterol in HDL [Mass ratio] 5.87 {ratio} High <5.10 [facility] Comment on above: Order Comment: Speci men Type: BLOOD SPECIMEN Ordering Facility: [facility] Address: [address] [place] [address] Performed By: #### 2 4323-8, 3016-3, 18801-3, 74597-3 #### [facility] CLIA [id number] [address] OF [facility] FASTING TIME 12 hrs Normal [facility] Comment on above: Order Comment: Speci men Type: BLOOD SPECIMEN Ordering Facility: [facility] Address: [address] [place] [address] Performed By: #### 2 4323-8, 3016-3, 32948-7, 06609-9 #### [facility] CLIA [id number] [address] OF [facility] Triglyceride [Mass/Vol] 173 mg/dL High <150 [facility] Comment on above: Order Comment: Speci men Type: BLOOD SPECIMEN Ordering Facility: [facility] Address: [address] [place] [address] Result Comment: <150 mg/dL, Normal 150-199 mg/dL, Borderline high 200-499 mg/dL, High >499 mg/dL, Very high Performed By: #### 2 4323-8, 3016-3, 17773-2, 91290-3 #### [facility] CLIA [id number] [address] [place], [place] [address] [place] [address] [place] PTH-Intact SerPl-ncon 06-2 Parathyrin.intact [Mass/Vol] 42 pg/mL Normal 15-65 [facility] Comment on above: Order Comment: Speci men Type: BLOOD SPECIMEN Ordering Facility: [facility] Address: [address] [place], [place] [address] Performed By: #### 2 731-8 #### [facility] CLIA [id number] [address] [facility] [facility] [id number] [id number] [place] TSH SerPl-aCncon 12-01-2021 TSH Qn 3.170 m[IU]/L Normal 0.270-4.200 [facility] Comment on above: Order Comment: Rangel zamora Type: BLOOD SPECIMEN Ordering Facility: [facility] Address: [address] [place], [place] [address] Result Comment: If t he patient is , TSH reference range varies by gestational period: First Trimester (weeks 9-12): 0.180-2.990 mIU/L Second Trimester: 0.110-3.980 mIU/L Third Trimester: 0.480-4.710 mIU/L Franco Callejas et al. A Practical Approach for the Verifications and Determination of Site- and Trimester-Specific Reference Intervals for Thyroid Function tests in . Thyroid, 2019:29:3:412-420. Varun E, et al. 2017 Guidelines of the [place] Thyroid Association for the Diagnosis and Management of Thyroid Disease during and the . Thyroid, 2017:27:3:315-389. Performed By: #### 2 4323-8, 3016-3, 81190-0, 20539-0 #### [facility] CLIA [id number] [address] [facility] [place] [address] [place] VITAMIN B1 (THIAMINE), WHOLE BLOODon 12-01-2021 Thiamine (Bld) [Moles/Vol] 134.6 nmol/L Normal 84.3-213.3 [facility] Comment on above: Order Comment: Rangel zamora Type: BLOOD SPECIMEN Ordering Facility: [facility] Address: [address] [place] [address] Result Comment: This assay measures the concentration of thiamine diphosphate (TDP), the primary active form of vitamin B1. Approximately 90 percent of vitamin B1 present in whole blood is TDP. Thiamine and thiamine monophosphate, which comprise the remaining 10 percent, are not measured. This test was developed and its performance characteristics determined by [facility] [place] ([facility]). It has not been cleared or approved by the FDA. [facility] is regulated under CLIA as qualified to perform high-complexity testing. This test is used for clinical purposes. It should not be regarded as investigational or for research. Performed By: #### B 1WB #### [facility] CLIA [id number] [address] [place], [place] [address] [address] [place] Vit [facility] Cobalamin (Vitamin B12) [Mass/Vol] 304 pg/mL Normal 232-1,245 [facility] Comment on above: Order Comment: Speci men Type: BLOOD SPECIMEN Ordering Facility: [facility] Address: [address] [place] [address] Performed By: #### 2 4323-8, 3016-3, 77019-5, 78208-4 #### [facility] CLIA [id number] [address] [facility]. [address] [place] No Panel Informationon 11-28 [facility] US ABD RIGHT UPPER QUADRANTo n 11-28-2021 [...] biliary ductal dilatation. The gallbladder is unremarkable. Investigations Manager: [facility] Transcribe Date/Time: Nov 28 2021 2:20P Dictated by : CJ QUINTERO MD This examination was interpreted and the report reviewed and electronically signed by: CJ QUINTERO MD on Nov 28 2021 2:21PM EST [id number] CN [facility] XR CHEST 2V FRONTAL/LATon XR CHEST [...] tissues: Unremarkable. IMPRESSION: No acute radiographic abnormality. Investigations Manager: [facility] Transcribe Date/Time: Nov 28 2021 1:32P Dictated by : KOMAL VINES MD This examination was interpreted and the report reviewed and electronically signed by: KOMAL VINES MD on Nov 28 2021 1:33PM EST [id number] CN [facility] ANES POSTPROC EVALon 022 ANES POSTPROC EVAL HNO ID: [id number] Author: Fannie Tanner MD Service: Anesthesiology Author Type: Physician Type: Anesthesia Postprocedure Evaluation Filed: 11/26/2021 3:12 PM Note Text: POST ANESTHESIA EVALUATION NOTE : 1990 Procedure Summary Date: 11/26/21 Room / Location: Procedures Anesthesia Start: 1315 Anesthesia Stop: 1328 Procedure: EGD DIAGNOSTIC Diagnosis: Pre-op exam (Heartburn) Scheduled Providers: Mulugeta Salmon MD; Fannie Tanner MD; Maria Alejandra Callejas APRN.ASSISTANT AUDITOR Responsible Provider: Fannie Tanner MD Anesthesia Type: [...] November 26, 2021 TIME: 3:12 PM CSN: [id number] [facility] ANES PRE-OPon 11-26-2021 ANES PRE-OP HNO ID: [id number] Author: Fannie Tanner MD Service: Anesthesiology Author Type: Physician Type: Anesthesia Preprocedure Evaluation Filed: 11/26/2021 12:27 PM Note Text: ANESTHESIOLOGY DAY OF SURGERY NOTE : 1990 Procedure Information Date/Time: 11/26/21 1245 Scheduled providers: Mulugeta Salmon MD; Fannie Tanner MD; Maria Alejandra Callejas APRN.ASSISTANT AUDITOR Procedure: EGD DIAGNOSTIC Location: Procedures Estimated body [...] November 26, 2021 TIME: 12:27 PM CSN: [id number] Normal [facility] EGD DIAGNOSTICon 11-26-2021 [facility] Upper GI endoscopyon 022 Upper GI endoscopy [facility] Gastrointestinal Endoscopy Patient Name: [...] by the physician, the nurse and the guide winder in the pre-procedure area in the endoscopy [...] previously scheduled. Procedure Code(s): --- Professional --- 59900, Esophagogastroduoden oscopy, flexible, transoral; diagnostic, including collection of specimen(s) by brushing or washing, when performed (separate procedure) Diagnosis Code(s): --- Professional --- K21.0, Gastro-esophageal reflux disease with esophagitis R12, Heartburn CPT copyright 2019 [place] [employer]. All rights reserved. The codes documented in this report are preliminary and upon clerk guide review may be revised to meet current compliance requirements. Attending Participation: I personally performed the entire procedure. Scope In: 1:21:30 PM Scope Out: 1:24:29 PM MD Mulugeta Tony MD 11/26/2021 1:27:19 PM This report has been signed electronically by Mulugeta Salmon MD Number of Addenda: 0 Note Initiated On: 11/26/2021 1:06 PM Estimated Blood Loss: Estimated blood loss: none. Normal [facility] HISTORY PHYSICALon 2 HISTORY PHYSICAL HNO ID: [id number] Author: Maria T Lares APRN.COMMERCIAL LEASING MANAGER Service: ? Author Type: Nurse Practitioner Type: HANDP Filed: 11/12/2021 3:58 PM Note Text: HISTORY AND PHYSICAL EXAMINATION SERVICE DATE: 11/12/2021 SERVICE TIME: 3:26 PM PRIMARY CARE PHYSICIAN: No Pcp This is a virtual visit using Hamilton Thorne video visit. It required patient-provider interaction for [...] fevers. Neurological: No history of TIA's, stroke, STAFFING CONSULTANT tumor, impaired sensorium, hemiplegia, paraplegia or quadraplegia. No neurological symptoms or problems. Respiratory: No history of current cough or dyspnea, or pneumonia in the past 6 weeks. No history of respiratory/pulmonar y symptoms or problems. Cardiovascular: No history of HTN requiring medication, no history of angina, CHF, ID, cardiac surgery or stents. Denies rest pain, [...] > 1 time per night or hematuria. TAILOR'S AIDE: Negative for abnormal vaginal bleeding, abnormal vaginal [...] results with (more content not included)... Normal [facility] COVID Quick Testingon 2021 Result Negative [employer] Other Quick Strepon 10-27-2021 S. pyogenes Org specific cx Ql (Throat) Negative [employer] Other Quick Strep [employer] Other Consent for Procedure/Surger yon 08-05-2021 Consent for Procedure/Surgery [id number] #1.00CD:127 Normal [facility] Ambulatory Visit Summaryon 0 08-04-2021 [...] you are no longer receiving treatment for. [facility] Physician Referralon 022 Physician Referral [id number] #1.00CD:127 Normal [facility] Physician Referral [id number] #1.00CD:127 Normal [facility] Covid-19 PCR (CVDTB)on 06-08 SARS-CoV-2 (COVID-19) RNA JONH+probe Ql (Unsp spec) Not detected Normal NOT DETECTED [facility] Comment on above: Result Comment: This test is not yet approved or cleared by the [place] FDA. When there are no FDA-approved or cleared tests available, and other criteria are met, FDA can make tests available under an emergency access mechanism called an Emergency Use Authorization (EUA). The EUA for this test is supported by the [place] Head of Health and Human Service's (HHS's) declaration [...] SARS-CoV-2. Performed By: #### C VDTB #### [facility] [address] [place] [address] Dr. Kerri Roberto Covid-19 PCR ([facility])on SARS-CoV-2 (COVID-19) RNA JONH+probe Ql (Unsp spec) Not detected Normal NOT DETECTED [facility] Comment on above: Result Comment: This test is not yet approved or cleared by the [place] FDA. When there are no FDA-approved or cleared tests available, and other criteria are met, FDA can make tests available under an emergency access mechanism called an Emergency Use Authorization (EUA). The EUA for this test is supported by the [place] of Health and Human Service's (HHS's) declaration [...] SARS-CoV-2. Performed By: #### C VDTB #### [facility] [address] [place] [address] Dr. Kerri Roberto Coding Summary.on 12-26-2020 Coding Summary. CD:[id number] Gh0bWw+PGhlYWQ+PE1FV ZLrR11ivXKlpF2RE8vBF F6BKRDBJPJHUO8BIV9vm DV5KSmvZ1QujwEr KwlsiAJiJG28MBq9TTP7 yQerXAkfqL5erVDbF7k6 AoAgBO84vM24WJjkSNAw GqL9IbNxdktdtSEs A4gkJrNakKBrBav+PHRh YmxlIHdpZHRoPScxMDAl OnSncXxeOG1nNz1hVGTb LWNvbGxhcHNlOiBj r4ufRDGjWHspFO3dnNqx C1ZhjAJ8DNEbe0w5Yi80 dHI+UMAzDBN7cXsmDGad y056QjEpi6zuRLG6 rGAmPWfhASZ3H65ux2A3 BGIpTWLkYFU8fXF8eF7o uVdzzqbzQ6FpjYYtViL0 RRR7dFLqjC9uhXrd roflvD2yCom+T59EVF0A UYEHMR5UYqf6Z1XqGvsq dHI+ZO85XMGdPO13eWQj zVMem0xilEc3LaVj PNAgLNA9kGenAFlqb3Lc BKGpJ61vyFDqm1S6RMFi hEnwpURtGsAehOU3vS5e PZdsnnifq4sjenoz Zikpa1flnd31nY24S41z KKpyEUTjMFV6BIGqPDTy iMsfuj1imW0rCt9+IDxj x3pig3vanEh0OhKl SQQlhhUneTvqCGH4m5Cu Uk09O3BnkEzsp7RuWaw7 ns00wEYyx4D8yIL2XOkm ZXYsqH5yCEgcJrT1 DVYwPdKzgS77rMJaMXgb Ky8ovSjgfSyeOI4pELGs dhlvKBNliL1fRCOxxPGe sSagIS9rDHEctxuu y474VaGvIVZ5BQTuuRIx M0WcpB0jGiZjUOYkDWGa H4AbrLQqRNnxS613MCay TfI0RROakgYnN8Cz AWFhvMavTqV5t5I6Pb5G e2NwlldpLYE9TUdvGMK9 ImFuRvXaDxD6N6YuGuq5 JTHivWxtTL8pR6Cq BTUdhtpvcoxeyBQ3FKBw RSSakF25rXAaNIlyWd2n i2Q3i965ZQDwPBIlhC26 Qh7tmHuzAGRdnGAM fR9hztwbw8hskvcpSrIc BDMkKKw2HBs2XVCscOmw QbHbWRP7VoE9CFS3fVZq lF2xrSvzrojhkP9r Oyc+K76woI5uUVS9HEI3 fcavZLEsswNsYQ43CE48 U6TjZyygkLGkoTA+PGRp niLghDnjUI7rWdSa f4izv8RvYPwwW0HzXJIn HKtzIds2RLFtSGX7cPJ7 pH5uZGVhPBbys8P5mPI0 Y8GwchRsxi4ae8lz WLWrVCbkV38iqLPfe7X9 RZYrrKK1NEXizLakFjOx fQ71Moa+UHXzgBmud1Bo Bnqqa0uge8ozoCc5 IjMwJSIgdmFsaWduPSJ0 e3WaCd75T53oJQjgRXLf PVPbQESvCBXqfLxwap5t mK3oUl5+PGNvbCB3 bSL0eU9nHRRvUbN6IRcg G718GcGxoKGcCezdm4dw r9iojYz8QsFaWIZbkaRt hXfbKJT2j9JeMg46 Q17dAFroFEQpADJwELUk CWSxyIuowj6pqU9bIt3+ AF8gr5ohdo27pI92bEM+ OZSsQXJ7pJjrLSnm YERkgG8pDYigTlU5PEQk OmWfkI94xPBhZAlwAu9e xRrzeWneNG3wYTWnxmjx t241VzZrr3siNBBn bXFcICuuBYR5J91gt8E5 XIQhIAZmSPS7qYL1kP8l bGlnbjogbGVmdDsgdmVy oBpbBWoqJRfvX807 IHRvcDsnPlBhdGllbnQg PcBjRGp9L9SdXwt1LPSg aLxaMJ3jlYUqEJciHp5f oRimlEhgMV0pYQPq hiwby244RcTbl4sxDCZo jKYkUBdbZLM2X50be1W1 HERgZZHwBRY5fXU2nM6o bGlnbjogbGVmdDsg rfEdeKdnGGvuGCkxJ919 IHRvcDsnPkJpcnRoIERh yLZ3LP00IO00qGYve4C6 rKL0P8UrFIHlecjr uvvdzRE2TTAnFLJihC83 Gs5phQhwVt5lYGRuUSP6 SQHvkPGcF0TlfE9wUgLd RXWvLOKtM6UkdJHc VVstE712MUrgLeQ2DTRy zbPrV0TrJSCwxGwvWbW5 o7J5Ji1BJ6O2GV36MO57 rFZvu4C5qFZ1C2Ue MGCctxwcycktqMB6BBBj VFPqxA20Le8poOhzWw8q ALOaJSD2FGPznZBlD5Ii xK6iHuBgIRDqYRKy O3DiqVJtOXrlI544LIab MwX2RCTcbzRxJ3AiSVMq qJnoPgA5c8L2Ba7RYCg0 OJ39RQ15fMRxj3J8 dJA1I8QeCXNhuveabbqz pOI8WWYaZMKfuB44Dv2p lXinHo1bROUbURM5FTFj iRSqD0QuiB9mLvEg WMGhWCGhI3WcmSJxMDhx W097WZzdTaU0OLYnucDx A2HeHHIhcXcoXrK0y5I4 Ki5SYMArQG09WIR5 tYX7AI79QA19F6OkUmta dGFibGU+PHRhYmxlIHdp ZHRoPScxMDAlJyBzdHls IC2yWa2sOMKmPTLz lSnlgORkWzZai1uuBRUv BDvfBQ9lwZtsV5LniOQ9 GVGmz1b6Kq47C64dP4Gh dXA+IKCdgYU4uTZ8 wD5oFcKfArX8WJohT113 ObPmfFBbHfhkl7yjp5gi pAm4EdZ3TZJsfcOkyJbi WYO5b5ZiCy86Y46i IHdpZHRoPSIxNSUiIHZh xTefsn7gsN8wWg5+PGNv rJI8gOV9yJ1dGiPzSfP6 NDkmX533IoZrdYUy Uqhjg1vua9bkbFb6VnQo WNPvdmZavImvWNQ4e1Ha Tl92J8VpeEiys4GcLpv8 in93oEQkr0P4tMQ3 A5XdEBFkhgkcuFFfeGey FW8sNZTxnbkhJLSetB1g KQOvO8k8ZaYnAbR4DSwh T5KojkB9GOXtlOFu DPfmZGA2Q95rp0V8XJRv PIBeKZF9iKO4vZ4nrMkk bjogbGVmdDsgdmVydGlj LGbmEWkpP611MCMr wNjsFYTjvZ8dRUGocPUv kTspAO4dZCWcbexmXchJ RoGNSveuCcOVBTNMGW76 AH02qEMry5I5eXV1 V0GdQXAmdyxtqglfqHV5 WLTtAGWceX85zVXiUDnj Gn6dr8S9t899LUBiOWEq oX40Pp5afNcvLIUc lMKAyI6prejbj4vejweu NqIyMDJpSLn0YOq3FZIq uAbpBxWpHHB4RfU6KVU7 bSZlzL6cfAgbrqgn lL2jTor+MTEvMTQvMTk4 OTwvdGQ+GJHvUNH5yPhn YRxxKEYcyV8xNOFyE6m8 ZrDcZpS7KPgqQ9Dn JSUwiuorZv91vY0yFjSt KoJ3FMdbO9KxdcZ6LJVp iKAkWCykQLB5X63uv0P3 IAJxEBVrLRX6wGB2 jN1qeTiphdggoXOmrTxj ypWyeGrgQHqoKLeyZ210 IHRvcDsnPjMxIFllYXJz WP21CG11iOPyw1Q9 pJA0F5RqKIHmusxazfhv xAJ0OBNtRUIsmG70jBVv IMpvMa2ng7R6e383VVNy ROHenX32Ur8sjMiz HDMesOSMeB7byqdib7el tnetSmKkWWMhZWo5VUm4 TKPzlRssFyKpHAP6BrW4 OIZ1jMWzuB4xeUrx mjamiR5tWfi+RmVtYWxl ZV90EL97fLGjv4S6mVL8 J9AxIFTjiflpjvlroTV6 JNKvWTEmbR84rCXa IIxaRc4xd7N6d324HYTb JDDorF49Dz5dsHblVQFw rSURuA4vcikhf4pvcnqi VfAgQPAvKLs6PZy7 NDTfyZwmMeQaKQQ2QvW6 MYI5mVYoqF1akSybjbdv hU8yFpx+Z0VdBEF0NIId p376E0PyQjngmHB+ YE48DRHaCY51cLTfxKEv z8bokLt8FiToGAZpFUK3 eBcgCTepc3EeANZmK81i pTRik3W0HBHxmXpt fJAyPnXgrOZ0kX5iWAjj yycia5tdxygcFugfu1pg cj51nM70O16gERqsJGAl PSIzMCUiIHZhbGln fw8ixQ6uAo5+PGNvbCB3 mNM6lO6aMoXfFgV6MOtj J709DjBwmOOwBtgww8vg q1cruNx0CzZuJQGl lhJrrMvdNON4a4NyOg09 O18bYTchKFEsREHoDAPs CDVudCgvrq8ouF0cCm5+ DI4yp7bodv84zM41 dHI+CWBzRPA0bBqtDMux PSIfxW1fBFmqVgM0ALTl CbGxkA21yNGuKNefJv1e qHeimZvxPJ8iAHKu hdxes014EbZpx5xsMYKh sCNiWZesDTG5T03or9X3 SPYhHUBuTWF9zYV8fE5y bGlnbjogbGVmdDsg xfQcoAqcHZguUAzbI210 WSVxmYngHgUrlVLuD4lj scAODA6fVqevvXF+PHRk RXW8cAbyGMcqLPVd eS4fWSSvW6x6FuRyKvP4 GAqsG0GierL5GKWwnUPo WIKipXSUhG1ycsdoo0lb cjogIzAwMDAwMDt0 YSc5WERmbJldMsWwDZG8 MwP6SSQ2zPPqfN5baSxi fkosxJ1wBxz+RklOOjwv dGQ+KORdDBU3vQua IRgfIJCruB8zAJBkT0l5 GsRjDbH0MBkzG9GrrvL3 OIDzhCFfVYEkwAITkU7a wafus7vdqxowYtUy KENmUEq6FWj2EQOdiGvx UoTtSPW5NgM0ONP5tJEq uF6llCnbvmfiqP1wSkw+ TVJOOjwvdGQ+PHRk DVV3rDzpKPopFNZpaB7p EIJqB0q1AoCqRtS1CHat X1UijiB4SUFocYHvAYNm vVRViX9bjwzkw9jv vgfzVpGuUUTuVSk1WRv3 VENugTcaOiMhZDR8NoN5 WGL9rSXbhH5jjEdldmct oJ7iUfc+SGO7SMP6 FU30ID32D6LnMbfgyBHj bGU+PHRhYmxlIHdpZHRo EWjnEGDeItFhqEcdBP7b Lo0qMNSgBNKjlHte cHNl (more content not included)... Normal [facility] Coding Summary.on 12-24-2020 Coding Summary. CD:[id number]:[id number] Gh0bWw+PGhlYWQ+PE1FV IOcX39luEDrgV6BO3dKK P9ACLIGUOBTUG6ICG6yx LA5LLfpX5CnawHd HqndjNVpVJ72KNs6JBR5 wXuwUVrekV1lxQDkU3t9 RqTaOF52aH95SHomCUTt NnR7IuOjrmliyCGf I9nmOrKbeSWqWqe+PHRh YmxlIHdpZHRoPScxMDAl EzWcjYwkDA0zLo7yKHDz LWNvbGxhcHNlOiBj q1umCHObYVkuIO2xnWnu G5MquSD8KXEis2m9Yg93 dHI+PWZgEMJ3bRlzVHvt q731JjMiw4aqIVH5 mIZvVFtzYGP1H01mu6B8 NQWnSLDwWYX3aVT1bG2d dOedceuoT0UxpSKfJwB2 ULT3wFGeoS5cjXkb tlvjmD5dJap+Q00BYF0H TNHOWP2BQaz6J0DmHqtv dHI+PS09SPNnEX47yYYy wXNvl0ksfDd9BrDi HSMoUZZ2sRpfBRxrn6Og XUTqI67jsOGvu3O9PZFw qCadmHMyLuVymAJ9bB9c CMboagwlk2lyforv Xbjsm1gnxe13vB31T44j TAsfKJZmUCA7IFTqFWBt lKwiwd5snV3rUv8+IDxj x9jjp7vvyPz3BuUm YUNxfzNkvEicRKX2x4Fl Jc31L5PngWmhb9RjHkj2 te27zIVfv9O3lML6YJiy CKYepS3bIZfnHbA3 CJAjEnCbkT28cJKeHDye Os2rtGqmnYvfUE7xGIRp veclPZDhqT5wJJQxaPHq yPjnZI0tHIRrmirh o336OnOqXZJ3PGSoqGWn X1KqeK9eMzVkITBaVTPk U8LnpYIwDRgbI564XKla JmM2CBHabaNuJ3Kt JFWliQgiDoZ3r6J9Zb6C r9VinwhmWQY5HRmeJYU2 GyHyVmPeOkU6W0AzKei7 LKMsfEfcLH3oL8Re ZUCnwskmvojzaIA2UKEk WHPtwS53oCSuODtbPd5c g0E9m770VEEjSWAhuH42 Go8qbUlqTZFbeIWZ lQ0faqcgl0ryvgfhJgGp IUThKDm9RRg8GBEmpNlu TdMnFMV6BrG2MGP5rNZs uX1onGnitkeuuH6j Oyc+X88zwW8tCBS4UAF8 xjhbZAGurlRmNX93WS60 T4EkAcrxzAZbkBZ+PGRp uzWpcJuhEH2lAmLf h8wsw0LmGIruY8WiQMIe LThkMon0DNQoWAQ5yTN5 gV6cSQGhKVqlo8C2fFL4 D4UcjyBjqc0hq5zy HQXqTWewB70soWWaa2C6 AQXauOJ1XBHipYixIeRf tM35Mog+PIVilWlmr6Hs Bwktj6gwx5gykPz6 IjMwJSIgdmFsaWduPSJ0 a4HrOs41L54cTEtsDRYb KXNzVPSnJPWqfZofln8v xH8cGh0+PGNvbCB3 dPF8kG8mXKCgTbY8FLbu A986WfOpgDSdGxtte6bw m3sdvVp9NwSoFFQvekAt iNnsKFM1t3GmSc34 Q83rPMevFNNxYPIvURFk XTUjgRdskb4cmK1nPz7+ HH0fe7reqd05jB28mGU+ FPTuKRX8bFadEMpi LWFklU7dDBxiGcG3XWWw XiZqbU80fMCiVTmxKf2u xQdeeDyaNK7tXCGkbccb e950FcKim6xuPPMk qDCkYLkhKMG9R32es4A1 LDXtTKFhYSR6oZI5eF9j bGlnbjogbGVmdDsgdmVy uEcqMIgnMBvnZ060 IHRvcDsnPlBhdGllbnQg IwWyVGs4P4IeMln9YPFv lHjvYF0qmTGeFDsyBe3t jHgqqYntQM2qCPNj yazhd009AwVai2gzZPLc gGZvHQlrMQG0T40tv0E1 LIPpGLAiAFU5mYY0oS5c bGlnbjogbGVmdDsg faBowLvzZRpgIWvuT279 IHRvcDsnPkJpcnRoIERh hDF3EO36BQ05rHBex7H3 iIT6T6UoQYArustz bhzbzVG9CGTxVKOglO69 Yn3vdJfvMl8nYACtKEX4 RNKenUIsL6KyjW1dZjIk NQZdWKVnE1JjpYGd HQmjE997KHcuRiX4VBSl qxQdU8JmCCEzoFwxCbY2 i4F4Tv8ZP2J0EF90TJ72 yVHrq9G1xWG8T4Ma KSXesdjyxtdeaJH0RVPn XOExxT80Zc3hsLbkBl8h WAGrMZH2NXPahDMgT0Uh zF5uRwSbBRSvHRRt V2AhmDYlPTgzC683WAvh ZnW8QOPiplIyN9QtKCLr qLfsAtZ4z3B9Dg7SUHc5 IW55MA90dAMod4Y7 rOB6G4FaDVHmyofejaby dJS3HKEyMJYkhP67Lc1x vOcgYm1vEXOhFJQ1NAVj vCAzH4AegM2cTdPj DTKzOEEmF9HwrFKvBUcb G897HLkrKtY1PLQyewTr W4JpVIDtpYaiKdM9b4M6 Jy5BPHCeEU46GGR9 lWD9FM38UO56J6LwHpji dGFibGU+PHRhYmxlIHdp ZHRoPScxMDAlJyBzdHls WI6rHd8uFLEySGZc kExvsHKbPzVxk5stEJIc IZnoTN8qkTbkX2WrkRA7 WZAck0h3Nq58O59pG3Fq dXA+MJXqwWU0rZL8 tD8eNqQyEhU3XFqmW449 YhMqhHXkRvirl8cyb2qp kRn1ExS3HUIvmrDkbSgn KWH2e3FrEw82W50k IHdpZHRoPSIxNSUiIHZh oNzsqz6brV9yCf2+PGNv aRL5wOJ5tG1uToWtOhW9 KOjbV994OgVlySXa Eqwtd2lhq4gkpAm4FnBe SFLelrGuiSozPQA6q4Xu Cp50K7MoxEanp9QvCct8 ua58eZMkg2J4wEL9 W9QkKZSnidvinMTiwSqf XD1iTMIkgyulDMKcyM3f MVIqG2m3MvWaFyT5NQuq T3QjhfN9FBCltFWa BQngIDM7X29lz3E8QZUv YCTmZCW7kWK7pE4mrCfp bjogbGVmdDsgdmVydGlj GGynOAypR167LNNh hEmcUGTicH1jVTXobFLf dEjrYU9zQEFvozxbBlvI OzJBNbepQsFOCTZPQQ83 WO85sOGtt1W8lIA7 S4IiUWWkbiumpmzczBK5 ICUqDKVlsS89qEKeQKkt Gt1tk1D5x026OTFqKEYp mX02Sf1izUbqWYHp eBLLfG5fmmxcq2ghtqmu IkAzXJWfFYd5TLw0INIz wFqpLaMsRCJ0DtW5OQA1 fVNtnJ7coCsfzomv oF0yWft+MTEvMTQvMTk4 OTwvdGQ+CLMzTGS3mNof RMwkWSQpiY0uTAZgI9s1 LyMxIaC4GKrsU7Bu FYKqamdhNb24pT7uRwAu CaC9KEfvE5ZjnfI1XMNl yJRfPAxkTBB0V93zw2V7 ARSuJIYpYER8zAR2 jS6goXacmywvhSIvvIql beTcpKumPLmzRLtzV685 IHRvcDsnPjMxIFllYXJz IM19YW90eFVrq6L4 rPB0Y3WpUBHljoqmmnst jMJ9KOAfBBNzlR26tZFr PXnkOw6ry2S5n219VCCy ZXHgdE31Ch6fkIgq YIRepZVIlP5iaugqg7nw pvnwSjOwJTTnXFo8PJw6 TQWdcUcvGoNgBBE0FfD1 UBA9cLVgfH0urVtz wqfpxT0cYnb+RmVtYWxl YI45RS75rQLmn8C2vRK8 X5HpBKIujrmxutvnvSF2 EVIiOJMsgS30sUJv OLgmIb1cq5A5f888MBEk LTCvhD66Wo0jaGqbNCLj wWLKgX7bhhdkf7lnlfnb LlJgAOCfFRv1OSi5 HQWynVegJbJgJUJ2IyT5 UXV1pUZigU2nrPggvdqr oR2nFmr+YP2iuxgmdeR6 OY40PB76S6DvUhcy dGFibGU+PHRhYmxlIHdp ZHRoPScxMDAlJyBzdHls CW5cZl0kDKJwUZMmlKxm gSTjDyWqm4mcUZOa QSdqHO0hcEmoM0JihPO1 FXWuh7z1Dj15T51kX6Ru dXA+SYRftMA4nZJ2hF3z RxFdZyP0VZsqT098 YqKijYUmMfmzd2kiy2gf hCs5XrGqQEBtvrHajPdx SFZ9t8WaFd18N58gHSih ZHRoPSIyMCUiIHZh iFtwrx1rpH5kPr4+PGNv oQY6kZL3lL7aFfWuXaW6 PCwsD527GuBjyJSzKdib I38tE1KnwNE+PHRy Ngp6FWSazTfoOQ8ghJYd TOdfRn3sHYZ7KfHcPiDu XXsjW7WgHJYbvukcfkkz aQD6UGUiIXBopV37 Di3wcZgiRi8vWBQvDFM4 NBLmtWRsB9UnkH5eTsUn BRYjEKYcZ6VukPTpHOpv E430EMruUhU6HPWu qsTtA4LkPMGhqNpyQmG6 q7V7Bf9XmXeriOWxBL0z LhFgTFk1D8TtHxi4KGHk lJeeQC3azXYmGLcp Ao3beJamfXlgXD9kWWEp iveac141NhKyp4mdVERl fZCyPVndMMF5T55lo7M1 UUGnRVEtTGQ3jXS5 wY8tkAmhjsxzoVRqmBen uvIesZefUNrmMJcqG815 GCFpgAxwFkMYRck9W2Wf Hbk3UISgfNlsPE7m sZNiRCovBm7mfKyrmBbz AW9sQNYkthxch561OpHk x1suMVWanQQpAQvvGLQ5 N11qn6M5EVDkUBUx FAD3eEQ9cN7pbLpsbeen bGVmdDsgdmVydGljYWwt FRmrN985KVOxfWzdUt8A Zyt1P1CoGks8XCQm iNswOF4uwHHmZFzcMm3v dOfotVxuRJ2zJWPongqw a420MpZev9shWTWwyRDt YXkwRGQ5B50wg0F2 KMYkXLWwSHX1hPZ4qX4w bGlnbjogbGVmdDsgdmVy pUnjUDppZUwsV755HIJj cDsnPlBheWVyOjwv dGQ+SG11hr33E1YtPhdn Btv9MDRsPXA6kRG9uJ6h WUMlIWrxj8F6eXM3X7Yy tnDcda3po3lyGKHl ZTog (more content not included)... Normal [facility] C Urineon 12-20-2020 Bacteria identified [...] Locations R1: This test was performed at: [facility], [address] [place] [address], [facility] , , [facility] Comment on above: Performed By: #### 1 [id number] ####[facility] [address] [place] [address] Discharge Instructionson Discharge Instructions [id number] 1#1.00CD:127 Normal [facility] ED Note-Physicianon 12-21-19 ED Note-Physician care transferred at change of shift. CT pending. CT returned without acute findings. Patient accepted for admission for pain control Impression: flank pain Normal [facility] Comment on above: Result Comment: Elec tronically Signed By: Yevgeniy JOYCE, Salvador\.br\Date and Time Signed: 12/19/20 23:07 EDT Inpatient Clinical Summaryon 12-20-2020 Inpatient Clinical Summary [place] [id number] Clinical Summary Person Information: Name: FUNMILAYO CONWAY Age: 30 Years : 1990 Sex: Female PCP: Maki VELA PA-C Marital Status: Phone: [phone] Race: White Ethnicity: Non- or Language: Yemeni Visit Id: Visit Reason: Vomiting; Back pain; Headache; VOMITTING; HEADACHE Speciality: Acuity: Enc Type: Observation Med Service: Medical Arrival: 12/19/2020 16:38:33 Discharge: Dispo Type: Admitted as IP to this Hosp Address: [address] [place] [address] [id number] Provider Notes: Diagnosis: 1:Myalgia; 2:Headache; 3:Left flank [...] Follow up: With: Address: When: Maki VELA [address] [place] [id number] Business (1) 12/26/2020 8:30 AM Patient Education Information: Viral Illness, Adult Normal [facility] Inpatient Patient Summaryon 12-20-2020 Inpatient Patient Summary [address] [address] Patient Discharge Instructions PERSON INFORMATION Name: FUNMILAYO [...] hydrated with water Take tylenol prn for [facility] Primary Care Physician to provide the following pending test results: Follow up: With: Address: When: Maki VELA [address] [place] [address] [place] (1) 12/26/2020 8:30 AM In the event [...] infected with (more content not included)... Normal [facility] Procalcitoninon 12-20-2020 Procalcitonin .05 ng/mL Normal .00-.50 [facility] Comment on above: Result Comment: [...] to 24 hours. Performed By: #### 2 [id number] #### [facility] [address] [place] [address] XR Chest Single Viewon 12-20 XR Chest [...] M.D. Transcribed by: LILY Technologist: GLEN Bates [facility] Auto Diffon 12-19-2020 Basophils/100 WBC (Bld) 0.7 % Normal 0.0-2.[address] [facility] Comment on above: Order Comment: Order Added by Discern Expert. Performed By: #### 2 958969, 4715548, 4846815, 03085910, 7259921, 3852019 #### [facility] [address] [place] [address] Basophils/Leukocytes Auto (Bld) [Pure # fraction] 0.1 E9/L Normal 0.0-0.2 [facility] Comment on above: Order Comment: Order Added by Discern Expert. Performed By: #### 2 896234, 0756453, 9010680, 84693633, 6614881, 3119691 #### [facility] [address] [place] [address] Eosinophils/100 WBC (Bld) 0.6 % Normal 0.0-8.0 [facility] Comment on above: Order Comment: Order Added by Discern Expert. Performed By: #### 2 962564, 3099248, 3587329, 30092185, 5937984, 2395839 #### [facility] [address] [place] [address] Eosinophils/Leukocytes Auto (Bld) [Pure # fraction] 0.1 E9/L Normal 0.0-0.5 [facility] Comment on above: Order Comment: Order Added by Discern Expert. Performed By: #### 2 536711, 9421572, 1844402, 72397886, 0377487, 8304144 #### [facility] [address] [place] [address] Lymphocytes/100 WBC (Bld) 29.4 % Normal 14.0-50.0 [facility] Comment on above: Order Comment: Order Added by Discern Expert. Performed By: #### 2 631962, 2758758, 4697848, 63514646, 1258009, 2947579 #### [facility] [address] [place] [address] Lymphocytes/Leukocytes Auto (Bld) [Pure # fraction] 2.5 E9/L Normal 1.0-4.0 [facility] Comment on above: Order Comment: Order Added by Andrea Expert. Performed By: #### 2 817996, 0030724, 0954859, 65167842, 8303454, 5859814 #### [facility] [address] [place] [address] Monocytes/100 WBC (Bld) 7.8 % Normal 4.0-14.0 [facility] Comment on above: Order Comment: Order Added by Andrea Expert. Performed By: #### 2 177925, 2858733, 1311199, 93916106, 5499408, 5596441 #### [facility] [address] [place] [address] Monocytes/Leukocytes Auto (Bld) [Pure # fraction] 0.7 E9/L Normal 0.2-1.0 [facility] Comment on above: Order Comment: Order Added by Andrea Expert. Performed By: #### 2 957742, 7985693, 7411885, 30201251, 3087263, 1205559 #### [facility] [address] [place] [address] Neutrophils/100 WBC (Bld) 61.5 % Normal 36.0-75.0 [facility] Comment on above: Order Comment: Order Added by Discern Expert. Performed By: #### 2 719583, 9324826, 6971273, 94215920, 0475549, 4538936 #### [facility] [address] [place] [address] Neutrophils/Leukocytes Auto (Bld) [Pure # fraction] 5.1 E9/L Normal 2.0-7.5 [facility] Comment on above: Order Comment: Order Added by Discern Expert. Performed By: #### 2 744202, 5481073, 0285869, 87530010, 8954449, 1056276 #### [facility] [address] [place] [address] CBC w/ Auto Diffon Erythrocyte distribution width (RBC) [Ratio] 12.7 % Normal 10.9-14.2 [facility] Comment on above: Performed By: #### 2 383940, 0611724, 6476103, 62481017, 0220336, 3656481 #### [facility] [address] [place] [address] Hematocrit (Bld) [Volume fraction] 41.2 % Normal 34.0-46.0 [facility] Comment on above: Performed By: #### 2 453281, 2356364, 5959221, 68114325, 2570242, 5306687 #### [facility] [address] [place] [address] Hemoglobin (Bld) [Mass/Vol] 13.8 g/dL Normal 12.0-16.0 [facility] Comment on above: Performed By: #### 2 788876, 7146078, 6436487, 15338354, 6544425, 2366363 #### [facility] [address] [place] [address] MCH (RBC) [Entitic mass] 29.6 pg Normal 27.0-34.0 [facility] Comment on above: Performed By: #### 2 933850, 1972147, 1301993, 02151289, 2844615, 3738039 #### [facility] [address] [place] [address] MCHC (RBC) [Mass/Vol] 33.5 g/dL Normal 31.4-36.0 [facility] Comment on above: Performed By: #### 2 081131, 8448235, 5006799, 30071761, 3541041, 1309599 #### [facility] [address] [place] [address] MCV (RBC) [Entitic vol] 88.3 fL Normal 80.0-100.[address] [facility] Comment on above: Performed By: #### 2 611124, 0182604, 1224677, 71362453, 0878073, 5582135 #### [facility] [address] [place] [address] Platelet mean volume (Bld) [Entitic vol] 8.3 fL Normal 6.4-10.8 [facility] Comment on above: Performed By: #### 2 027689, 7025472, 1098837, 45006942, 8158136, 0836956 #### [facility] [address] [place] [address] Platelets (Bld) [#/Vol] 188.0 E9/L Normal 150.0-500.0 [facility] Comment on above: Performed By: #### 2 892216, 4121884, 3477655, 39314177, 4244501, 0670263 #### [facility] [address] [place] [address] RBC (Bld) [#/Vol] 4.7 E12/L Normal 4.3-5.9 [facility] Comment on above: Performed By: #### 2 929291, 5597245, 3325777, 73127444, 7869976, 3192668 #### [facility] [address] [place] [address] WBC corrected for nucl RBC Auto (Bld) [#/Vol] 8.4 E9/L Normal 4.0-11.0 [facility] Comment on above: Performed By: #### 2 808782, 3489692, 8846660, 21697351, 3639930, 6203654 #### [facility] [address] [place] [address] CMPon 12-19-2020 Albumin [Mass/Vol] 4.2 g/dL Normal 3.3-5.0 [facility] Comment on above: Performed By: #### 2 907241, 3421028, 1368147, 45873878, 2114631, 7531081 ####[facility] [address] [place] [address] Albumin/Globulin (S) [Mass conc ratio] 1.0 Low 1.1-2.2 [facility] Comment on above: Performed By: #### 2 728101, 6713842, 7614021, 94916175, 1936428, 7472636 ####[address] [place] [address] ALP [Catalytic activity/Vol] 44 Int._Unit/L Normal 21-98 [facility] Comment on above: Performed By: #### 2 290979, 5851163, 5972880, 88358338, 1641691, 1450869 ####[facility] [address] [place] [address] ALT No additional P-5'-P [Catalytic activity/Vol] 22 Int._Unit/L Normal 6-46 [facility] Comment on above: Performed By: #### 2 707450, 3335005, 2413405, 77869882, 0782203, 9342258 ####[facility] [address] [place] [address] AST [Catalytic activity/Vol] 18 Int._Unit/L Normal 5-43 [facility] Comment on above: Performed By: #### 2 351562, 0735245, 0175803, 13868339, 4762395, 5036341 ####[facility] [address] [place] [address] Bilirubin [Mass/Vol] 0.8 mg/dL Normal 0.0-1.1 [facility] Comment on above: Performed By: #### 2 338263, 0344995, 2568454, 48299040, 7937081, 1908704 ####[facility] [address] [place] [address] Creatinine [Mass/Vol] 0.5 mg/dL Normal 0.5-1.3 [facility] Comment on above: Performed By: #### 2 258566, 1542055, 2829024, 94950788, 5840076, 1497997 ####[facility] [address] [place] [address] Globulin (S) [Mass/Vol] 4.0 g/dL Normal 1.4-4.0 [facility] Comment on above: Performed By: #### 2 208536, 3246665, 8285794, 99284319, 1745554, 7978639 ####[facility] [address] [place] [address] Protein [Mass/Vol] 8.2 g/dL High 6.0-7.8 [facility] Comment on above: Performed By: #### 2 274908, 2005425, 6753820, 50695300, 7065658, 4095600 ####[facility] [address] [place] [address] Urea nitrogen [Mass/Vol] 6 mg/dL Normal 5-21 [facility] Comment on above: Performed By: #### 2 847037, 3959971, 8037305, 65654931, 6285350, 6389310 ####[facility] [address] [place] [address] Urea nitrogen/Creatinine [Mass ratio] 12 No Units Normal 10-20 [facility] Comment on above: Performed By: #### 2 658245, 1389133, 3680836, 50094853, 8322207, 2999783 ####[facility] [address] [place] [address] Anion gap [Moles/Vol] 14 mmol/L Normal 6-16 [facility] Comment on above: Performed By: #### 2 016515, 7277835, 3070222, 75720308, 8515651, 2205404 ####[facility] [address] [place] [address] Calcium [Mass/Vol] 8.9 mg/dL Normal 8.9-11.1 [facility] Comment on above: Performed By: #### 2 021144, 9354903, 3231763, 10816429, 3063695, 0281915 ####[facility] [address] [place] [address] Chloride [Moles/Vol] 103 mmol/L Normal 101-111 [facility] Comment on above: Performed By: #### 2 136617, 4071811, 5270481, 82195184, 8230638, 4293910 ####[facility] [address] [place] [address] CO2 [Moles/Vol] 25 mmol/L Normal 21-31 [facility] Comment on above: Performed By: #### 2 834324, 7854371, 3568187, 73451637, 7134890, 6000321 ####[facility] [address] [place] [address] Glucose [Mass/Vol] 90 mg/dL Normal 55-199 [facility] Comment on above: Result Comment: If t his glucose result represents a fasting glucose, interpretation should refer to the following reference range: 55-99 mg/dL Performed By: #### 2 432530, 0725926, 5239326, 92870990, 3597307, 5689962 ####[facility] [address] [place] [address] Potassium [Moles/Vol] 3.8 mmol/L Normal 3.5-5.3 [facility] Comment on above: Performed By: #### 2 871356, 7816575, 8925348, 57571063, 2646274, 4849004 ####[facility] [address] [place] [address] Sodium [Moles/Vol] 138 mmol/L Normal 135-145 [facility] Comment on above: Performed By: #### 2 078642, 0302814, 8865242, 46041976, 6197801, 3753618 ####[facility] [address] [place] [address] CT Abdomen/Pelvis w/o Contra kenyon 12-19-2020 CT [...] and spleen are not included within the jafnq-ia-thij of this renal stone protocol study. The [...] Signature): 12/19/2020 7:54 pm Signed by: Reuben Wodoruff M.D. Transcribed by: LILY Technologist: JAY Technical Comments Rectal Contrast Given? No Oral contrast amount in ml's: 0 Normal [facility] Consent for Treatmenton 12-05 Consent for Treatment [id number] 10 [id number] Normal [facility] ED Clinical Summaryon 2020 ED Clinical Summary [place] [id number] ED Clinical Summary Person Information Name: FUNMILAYO CONWAY Mariah/[facility] Age: 30 Years : 1990 Sex: Female Language: Yemeni PCP: Maki VEAL PA-C Marital Status: Phone: [phone] Visit Id: Visit Reason: Vomiting; Back pain; [...] 20:36:01 12/19/2020 20:36:01 12/19/2020 20:36:01 ADDRESS: [address] [place] [address] [address] [facility] [id number] PHYS DOC NOTES: MEDICAL INFORMATION: Prescriptions Given: Medications to Continue with No Changes Other Medications cephalexin (Keflex 500 mg Cap) 1 Capsules By Mouth every 6 hours for 7 Days. Refills: 0. ondansetron (ondansetron 4 mg Dis Tab) 1 Tablets By Mouth every 6 hours as needed Nausea/Vomiting. Refills: 0. PATIENT EDUCATION INFORMATION: Instructions: Follow up: DIAGNOSIS: Normal [facility] ED Note-Physicianon 12-20-19 ED Note-Physician Basic [...] (12/19/20 17:3 (more content not included)... Normal [facility] Comment on above: Result Comment: Elec tronically Signed By: Shiva Ferreira DO\.br\Date and Time Signed: 12/19/20 19:19 EDT ED Patient Education Noteon 12-19-2020 ED Patient Education Note Normal [facility] ED Patient Summaryon 021 ED Patient Summary [place] [id number] Patient Discharge Instructions Person Information Name: FUNMILAYO CONWAY Age: 30 Years Arrival Date: 12/19/2020 16:38:33 Discharge Diagnosis: Primary Care Physician: Maki VELA PA-C Provider Information Primary Provider: Shiva Ferreira DO Advanced Cafe Manager:None The exam and treatment you received in the Emergency Department were for an urgent problem and are not intended as complete care. It is important that you follow up with a doctor, nurse practitioner, or physician?s nurses medical assistants phlebotomists for ongoing care. If your symptoms become [...] opioids can be used to help relieve wtkcvhhb-cy-jdivyt pain and are often prescribed following a [...] be struggling with addiction, tell your health outdoor emergency care technician and ask for guidance or call [facility]?S National Helpline at 9-226-985-[facility]. v Source: [place] Department of Health and Human Services/Center for Disease Control & Prevention [facility] Medications Given: Medication Dose Route Sodium Chloride 0.9% 1000.00 m (more content not included)... Normal [facility] Lactic Acidon 12-19-2020 Lactate [Mass/Vol] 0.8 mmol/L Normal 0.5-2.2 [facility] Comment on above: Performed By: #### 2 [id number] #### [facility] [address] [place] [address] Lactate [Mass/Vol] 0.9 mmol/L Normal 0.5-2.2 [facility] Comment on above: Performed By: #### 2 [id number], 1374470, 1476400, [id number], 5868913, [id number] #### [facility] [address] [place] [address] Physician Orderon 12-19-2020 Physician Order [id number] 73#1.00CD:127 Normal [facility] Troponinon 12-19-2020 Troponin I.cardiac [Mass/Vol] 2.30 pg/mL Low 10.10-27.10 [facility] Comment on above: Result Comment: The 95% CI (Confidence Interval) PPV (Positive Predictive Value) for myocardial infarction in females is 38 pg/mL, in males 51 pg/mL. The results should be used in conjunction with clinical conditions of myocardial infarction. (Access High Sensitivity Troponin I Instructions For Use, [place], January 2018) Performed By: #### 2 691658, 6264755, 3757483, [id number], 5828643, 1184920 ####[facility] [address] [place] [address] UA With Cult Reflexon 2020 Bacteria LM Ql (Urine sed) TRACE Normal Trace [facility] Comment on above: Performed By: #### 1 [id number] ####[facility] [address] [place] [address] Bilirubin Ql (U) Negative Normal Negative [facility] Comment on above: Performed By: #### 1 2575212 ####[facility] [address] [place] [address] Clarity (U) CLEAR Normal Clear [facility] Comment on above: Performed By: #### 1 8452057 ####[facility] [address] [place] [address] Color (U) YELLOW Normal Yellow [facility] Comment on above: Performed By: #### 1 [id number] ####[facility] [address] [place] [address] Epithelial cells.squamous LM.HPF (Urine sed) [#/Area] 3-4 Normal 0-2 [facility] Comment on above: Performed By: #### 1 1146460 ####[facility] [address] [place] [address] Glucose Test strip (U) [Mass/Vol] Negative Normal Negative [facility] Comment on above: Performed By: #### 1 7938585 ####[facility] [address] [place] [address] Hemoglobin Ql (U) Negative Normal Negative [facility] Comment on above: Performed By: #### 1 9580468 ####[facility] [address] [place] [address] Ketones (U) [Mass/Vol] 1+ Abnormal Negative Fi [facility] Comment on above: Performed By: #### 1 5171809 ####[facility] [address] [place] [address] Crows Nest.plasma/Crows Nest. RBC (Bld) [Mass ratio] 0-3 Normal 0-3 [facility] Comment on above: Performed By: #### 1 5207627 ####[facility] [address] [place] [address] Mucus Ql (Urine sed) 1+ Normal Fish [facility] Comment on above: Performed By: #### 1 5095475 ####[facility] [address] [place] [address] Nitrite Ql (U) Negative Normal Negative [facility] Comment on above: Performed By: #### 1 9559405 ####[place] [address] [place] [address] pH (U) 6.0 [pH] Invalid Interpretation Code 5.0-9.0 [facility] Comment on above: Performed By: #### 1 2730554 ####[address] [address] Protein (U) [Mass/Vol] TRACE Abnormal Negative Fi [facility] Comment on above: Performed By: #### 1 5920609 ####[address] [address] Specific gravity (U) [Rel density] 1.025 Invalid Interpretation Code 1.005-1.030 [facility] Comment on above: Performed By: #### 1 3620985 ####[address] [address] Type of Urine collection method Clean Catch Normal [facility] Comment on above: Performed By: #### 1 [id number] ####[address] [address] Urobilinogen Qn (U) 0.2 {Tg'U}/dL Normal 0.0-1.0 [facility] Comment on above: Performed By: #### 1 [id number] ####[address] [address] WBC Auto Ql (U) Negative Normal Negative [facility] Comment on above: Performed By: #### 1 6386411 ####[address] [address] WBC LM.HPF (Urine sed) [#/Area] 0-5 Normal 0-5 [facility] Comment on above: Performed By: #### 1 9698843 ####[address] [address] eGFRon 12-19-2020 GFR/1.73 sq M.predicted among blacks MDRD (S/P/Bld) [Vol rate/Area] mL/min/{1.73_m2} Normal >=59 [facility] Comment on above: Order Comment: Order added by Discern Expert. Result Comment: eGFR is race adjusted. AA=. Performed By: #### 2 975041, 6999021, 6492288, 93948951, 1318269, 3631485 ####[facility] [address] [place] [address] GFR/1.73 sq M.predicted among non-blacks MDRD (S/P/Bld) [Vol rate/Area] mL/min/{1.73_m2} Normal >=59 [facility] Comment on above: Order Comment: Order added by Discern Expert. Result Comment: Heat Treat Supervisor roshan kidney disease could be indicated at eGFR's of less than 60 mL/min/1.73m2. Kidney failure is indicated at less than 15 mL/min/1.73m2. Performed By: #### 2 276458, 2784231, 0880318, 22654189, 1611253, 1430489 ####[facility] [address] [place] [address] Consent for Treatmenton 12-05 Consent for Treatment [id number] #1.00CD:127 Normal [facility] Discharge Instructionson Discharge Instructions [id number]#1.00CD:127 Normal [facility] ED Clinical Summaryon 2020 ED Clinical Summary [address] [address] ED Clinical Summary Person Information Name: FUNMILAYO CONWAY [place] Age: 30 Years : 1990 Sex: Female Language: Yemeni PCP: Maki VELA PA-C Marital Status: Phone: [phone] Visit Id: Visit Reason: Back pain; Headache; [...] 03:52:27 12/18/2020 03:52:27 12/18/2020 03:52:27 ADDRESS: [address] [place] [address] [address] [facility] [phone] PHYS DOC NOTES: MEDICAL INFORMATION: Prescriptions Given: New Medications [id number], [address] [place], [place] [phone], [phone] cephalexin (Keflex 500 mg Cap) 1 Capsules By Mouth every 6 hours for 7 Days. Refills: 0. Medications to Continue with No Changes Other Medications ondansetron (ondansetron 4 mg Dis Tab) 1 Tablets By Mouth every 6 hours as needed Nausea/Vomiting. Refills: 0. PATIENT EDUCATION INFORMATION: Instructions: Pyelonephritis, Adult Follow up: With: Address: When: Maki DANE [address] [place] [address] Business (1) In 3 days DIAGNOSIS: Acute pyelonephritis Normal [facility] ED Note-Nursingon 12-18-2020 ED Note-Nursing pt ambulatory to with steady gait w/o assistance. urine sample obtained. md at bedside for eval; awaiting further orders Normal [facility] ED Note-Physicianon 12-19-19 ED Note-Physician [...] day(s), # 28 cap(s), Refills(s) 0, Pharmacy: [id number], 165, cm, 12/18/20 1:04:00 [...] Information Maki VELA In [address] [place] [address]- Business (1) Additional Instructions: Patient [...] Family History (more content not included)... Normal [facility] Comment on above: Result Comment: [...] you start to feel better. ? Take tveb-kye-prmthqj and prescription medicines only as told by [...] 05/24/2006 Document Revised: 03/28/2019 Document Reviewed: 03/28/2019 [employer] Patient Education ? 2019 Sciences-U. Normal [facility] ED Patient Summaryon 021 ED Patient Summary [address] [address] Patient Discharge Instructions Person Information Name: FUNMILAYO CONWAY Age: 30 Years Arrival Date: 12/18/2020 00:55:40 Discharge Diagnosis: Acute pyelonephritis Primary Care Physician: Maki VELA PA-C Provider Information Primary Provider: Darien Fischer DO Advanced Cafe Manager:None The exam and treatment you received in the Emergency Department were for an urgent problem and are not intended as complete care. It is important that you follow up with a doctor, nurse practitioner, or physician?s nurses medical assistants phlebotomists for ongoing care. If your symptoms become [...] Address: When: Maki VELA [address] [place] [address] Business (1) In 3 days In the event that this physician does not participate in your insurance network, please consult with your insurance company to find a nearby participating provider. Patient Education Materials: Antoinette Burden A MESSAGE TO ALL PATIENTS REGARDING OPIOIDS PRESCRIPTION OPIOIDS: WHAT YOU NEED TO KNOW Prescription opioids can be used to help relieve hilcmhvs-gw-ehqpyj pain and are often prescribed following a [...] be struggling with addiction, tell your health outdoor emergency care technician and ask for guidance or call [facility]?S National Helpline at 4-229-994-ZEMO. d Source: [facility] (more content not included)... Normal [facility] U BetaHcg Qualon 12-18-2020 HCG.beta subunit (U) [Moles/Vol] Negative Normal [facility] Comment on above: Performed By: #### 2 [id number] ####[facility] [address] [place] [address] UA With Cult Reflexon 2020 Bacteria LM Ql (Urine sed) 3+ /HPF Abnormal Trace [facility] Comment on above: Performed By: #### 1 0893772, 0660135 ####[facility] [address] [place] [address] Bilirubin Ql (U) Negative Normal Negative [facility] Comment on above: Performed By: #### 1 0256269, 4158034 ####[facility] [address] [place] [address] Clarity (U) SL CLOUDY Abnormal Clear [facility] Comment on above: Performed By: #### 1 5896095, 2047896 ####[facility] [address] [place] [address] Color (U) YELLOW Normal Yellow [facility] Comment on above: Performed By: #### 1 5061153, 6980886 ####[facility] [address] [place] [address] Crystals LM Ql (Urine sed) Present Normal [facility] Comment on above: Performed By: #### 1 7301103, 4368913 ####[address] [address] Epithelial cells.squamous LM.HPF (Urine sed) [#/Area] 0-2 Normal 0-2 [facility] Comment on above: Performed By: #### 1 1502388, 8056717 ####[address] [address] Glucose Test strip (U) [Mass/Vol] Negative Normal Negative [facility] Comment on above: Performed By: #### 1 4706564, 0485989 ####[address] [address] Hemoglobin Ql (U) Negative Normal Negative [facility] Comment on above: Performed By: #### 1 7363147, 2600255 ####[address] [address] Ketones (U) [Mass/Vol] Negative Normal Negative [facility] Comment on above: Performed By: #### 1 7870274, 8305884 ####[address] [address] Crows Nest.plasma/Crows Nest. RBC (Bld) [Mass ratio] 0-3 Normal 0-3 [facility] Comment on above: Performed By: #### 1 1988367, 8259750 ####[facility] [address] [place] [address] Mucus Ql (Urine sed) 1+ Normal Fish [facility] Comment on above: Performed By: #### 1 1233720, 8440691 ####[address] [address] Nitrite Ql (U) Negative Normal Negative [facility] Comment on above: Performed By: #### 1 4022348, 9446648 ####[facility] [address] [place] [address] pH (U) 7.0 [pH] Invalid Interpretation Code 5.0-9.0 [facility] Comment on above: Performed By: #### 1 5534010, 1835690 ####[address] [address] Protein (U) [Mass/Vol] Negative Normal Negative [facility] Comment on above: Performed By: #### 1 8537358, 9925979 ####[address] [address] Specific gravity (U) [Rel density] 1.020 Invalid Interpretation Code 1.005-1.030 [facility] Comment on above: Performed By: #### 1 4029486, 6809538 ####[place] [address] Type of Urine collection method Clean Catch Normal [facility] Comment on above: Performed By: #### 1 5626888, 7649474 ####[address] [address] Urobilinogen Qn (U) 0.2 {Tg'U}/dL Normal 0.0-1.0 [facility] Comment on above: Performed By: #### 1 4561694, 0378714 ####[address] [address] WBC Auto Ql (U) Negative Normal Negative [facility] Comment on above: Performed By: #### 1 4261899, 5806140 ####[address] [address] WBC LM.HPF (Urine sed) [#/Area] 0-5 Normal 0-5 [facility] Comment on above: Performed By: #### 1 9345045, 3988587 ####[address] [address] Vital Signs Date Time Vital Sign Value Performing Clinician Facility 03-09-2024 17:45-0400 Body height 167.64 cm [facility] 03-09-2024 17:45-0400 Body mass index (BMI) [Ratio] 35.5 kg/m2 [facility] 03-09-2024 17:45-0400 Body temperature 99.3 [degF] [facility] 03-09-2024 17:45-0400 Body weight 99.79 kg [facility] 03-09-2024 17:45-0400 Diastolic blood pressure 79 mm[Hg] [facility] 03-09-2024 17:45-0400 Heart rate 91 /min [facility] 03-09-2024 17:45-0400 Respiratory rate 18 /min [facility] 03-09-2024 17:45-0400 SaO2% (BldA) [Mass fraction] 99 % [facility] 03-09-2024 17:45-0400 Systolic blood pressure 121 mm[Hg] [facility] 12-01-2023 10:47-0400 Body temperature 98.5 [degF] PHYSICIAN NO [facility] 12-01-2023 10:47-0400 Diastolic blood pressure 71 mm[Hg] PHYSICIAN NO [facility] 12-01-2023 10:47-0400 Heart rate 72 /min PHYSICIAN NO [facility] 12-01-2023 10:47-0400 Respiratory rate 18 /min PHYSICIAN NO [facility] 12-01-2023 10:47-0400 SaO2% (BldA) [Mass fraction] 97 % PHYSICIAN NO [facility] 12-01-2023 10:47-0400 Systolic blood pressure 121 mm[Hg] PHYSICIAN NO [facility] 12-01-2023 08:54-0400 Body height 167.64 cm PHYSICIAN NO [facility] 12-01-2023 08:54-0400 Body weight 100.3 kg PHYSICIAN NO [facility] 05-05-2023 15:54-0500 Body height 165.[address] Work Phone: [facility] 04-13-2023 10:23-0500 Body height 165.1 cm Jona Bermudez MD Work Phone: [facility] 04-13-2023 10:23-0500 Body weight 94.35 kg Jona Bermudez MD Work Phone: [facility] 12-30-2022 13:46-0400 Body height 165.[address] Work Phone: [facility] 12-30-2022 13:46-0400 Body weight 96.[address] Work Phone: [facility] 06-09-2022 09:24-0500 Body height 165.[address] Work Phone: [facility] 06-09-2022 09:24-0500 Body weight 118.[address] Work Phone: [facility] 03-18-2022 13:36-0400 Body height 165.1 cm Pacc 5 Work Phone: [facility] 03-18-2022 13:36-0400 Body temperature 97.39 [degF] Pacc 5 Work Phone: [facility] 03-18-2022 13:36-0400 Body weight 143.02 kg Pacc 5 Work Phone: [facility] 03-18-2022 13:36-0400 Diastolic blood pressure 81 mm[Hg] Pacc 5 Work Phone: [facility] 03-18-2022 13:36-0400 Heart rate 88 /min Pacc 5 Work Phone: [facility] 03-18-2022 13:36-0400 SaO2% (BldA) [Mass fraction] 97 % Pacc 5 Work Phone: [facility] 03-18-2022 13:36-0400 Systolic blood pressure 133 mm[Hg] Pacc 5 Work Phone: [facility] 03-18-2022 11:10-0400 Body height 165.5 cm Jona Bermudez MD Work Phone: [facility] 03-18-2022 11:10-0400 Body weight 141.98 kg Jona Bermudez MD Work Phone: [facility] 03-18-2022 11:10-0400 Diastolic blood pressure 76 mm[Hg] Jona Bermudez MD Work Phone: [facility] 03-18-2022 11:10-0400 Heart rate 78 /min Jona Bermudez MD Work Phone: [facility] 03-18-2022 11:10-0400 Systolic blood pressure 134 mm[Hg] Jona Bermudez MD Work Phone: [facility] 02-08-2022 15:57-0400 Body height 165.1 cm Marco A Hoy Other Phone: [facility] Other Phone (unformatted): [phone] 02-08-2022 15:57-0400 Body temperature 97.88 [degF] Marco A Hoy Other Phone: [facility] Other Phone (unformatted): [phone] 02-08-2022 15:57-0400 Body weight 150 kg Marco A Hoy Other Phone: [facility] Other Phone (unformatted): [phone] 02-08-2022 15:57-0400 Diastolic blood pressure 78 mm[Hg] Marco A Hoy Other Phone: [facility] Other Phone (unformatted): [phone] 02-08-2022 15:57-0400 Heart rate 77 /min Marco A Hoy Other Phone: [facility] Other Phone (unformatted): [phone] 02-08-2022 15:57-0400 Respiratory rate 20 /min Marco A Hoy Other Phone: [facility] Other Phone (unformatted): [phone] 02-08-2022 15:57-0400 SaO2% (BldA) [Mass fraction] 97 % Marco A Hoy Other Phone: [facility] Other Phone (unformatted): [phone] 02-08-2022 15:57-0400 Systolic blood pressure 143 mm[Hg] Marco A Hoy Other Phone: [facility] Other Phone (unformatted): [phone] 12-01-2021 09:31-0400 Body height 167.[address] [facility] 12-01-2021 09:310400 Body weight 149.[address] [facility] 11-26-2021 13:50-0400 Diastolic blood pressure 84 mm[Hg] Mulugeta Salmon MD Work Phone: [facility] 11-26-2021 13:50-0400 Heart rate 76 /min Mulugeta Salmon MD Work Phone: [facility] 11-26-2021 13:50-0400 Respiratory rate 15 /min Mulugeta Salmon MD Work Phone: [facility] 11-26-2021 13:50-0400 SaO2% (BldA) [Mass fraction] 95 % Mulugeta Salmon MD Work Phone: [facility] 11-26-2021 13:50-0400 Systolic blood pressure 127 mm[Hg] Mulugeta Salmon MD Work Phone: [facility] 11-26-2021 13:30-0400 Body temperature 97 [degF] Mulugeta Salmon MD Work Phone: [facility] 11-12-2021 15:29-0400 Body height 167.6 cm [facility] 11-12-2021 15:29-0400 Body weight 148.96 kg [facility] 11-07-2021 09:23-0400 Body weight 148.78 kg Danny Cristina DO Work Phone: [facility] 10-27-2021 17:25-0400 Body height 165.1 cm Myron Jacome Other [employer] Other 10-27-2021 17:25-0400 Body mass index (BMI) [Ratio] 55.74 kg/m2 Myron Jacome Other [employer] Other 10-27-2021 17:25-0400 Body temperature 97.8 [degF] Myron Jacome Other [employer] Other 10-27-2021 17:25-0400 Body weight 151.96 kg Myron Jacome Other [employer] Other 10-27-2021 17:25-0400 SaO2% (BldA) [Mass fraction] 97 % Myron Jacome Other [employer] Other 09-15-2021 14:13-0400 Body height 167.2 cm Jona Bermudez MD Work Phone: [facility] 09-15-2021 14:13-0400 Body weight 152.86 kg Jona Bermudez MD Work Phone: [facility] 09-15-2021 14:13-0400 Diastolic blood pressure 86 mm[Hg] Jona Bermudez MD Work Phone: [facility] 09-15-2021 14:13-0400 Heart rate 92 /min Jona Bermudez MD Work Phone: [facility] 09-15-2021 14:13-0400 Systolic blood pressure 140 mm[Hg] Jona Bermudez MD Work Phone: [facility] Encounters Encounter Date Encounter Type Care Provider Facility Start: 03-10-2024 End: 03-10-2024 ambulatory JOSE RAMON MARRUFO Not Available Start: 03-09-2024 End: 03-09-2024 ambulatory [facility] Work Phone: Start: 03-09-2024 End: 03-09-2024 Patient encounter procedure [facility] Work Phone: Start: 12-20-2023 End: 12-20-2023 ambulatory COLBY MARIANA Not Available Start: 12-08-2023 End: 12-08-2023 ambulatory PHYSICIAN NO [facility] Work Phone: Start: 12-08-2023 End: 12-08-2023 Departed Referred PHYSICIAN NO [facility]-LAB Path [facility] Start: 12-06-2023 End: 12-06-2023 ambulatory COLBY MARIANA Not Available Start: 12-01-2023 End: 12-01-2023 Emergency department patient visit PHYSICIAN NO [facility]Emergency [facility] Work Phone: Start: 11-25-2023 [...] with patient Bita Vigil RD Work Phone: [facility] Start: 04-13-2023 End: 04-13-2023 ambulatory MARCO A BYRD Facility:[facility] Start: 04-13-2023 End: 04-13-2023 ambulatory Jona Bermudez MD Work Phone: General Surgery Comment on above: S/P gastric bypass ( Primary Dx) Start: 04-13-2023 End: 04-13-2023 Telemedicine consultation with patient Jona Bermudez MD Work Phone: [facility] Start: 12-30-2022 End: 12-30-[address] Work Phone: General Surgery Comment on above: S/P gastric bypass ( Primary Dx); Dietary counseling and surveillance Start: 12-30-2022 End: 12-30-2022 Telemedicine consultation with patient Bita Vigil RD Work Phone: [facility] Start: 09-09-2022 End: 09-09-2022 ambulatory BITA YARITZA Facility:[facility] Start: 06-09-2022 End: 06-09-2022 ambulatory BITA YARITZA Facility:[facility] Start: 06-09-2022 End: 06-09-[address] Work Phone: General Surgery Comment on above: S/P gastric bypass ( Primary Dx); Impaired intestinal absorption; Dietary counseling and surveillance Start: 06-09-2022 End: 06-09-2022 Telemedicine consultation with patient Bita Vigil RD Work Phone: [facility] Start: 05-15-2022 End: 05-18-2022 ambulatory JONA BERMUDEZ Facility:[facility] Start: 05-07-2022 End: 05-07-2022 ambulatory Jona Bermudez MD Work Phone: General Surgery Comment on above: History of Cathie-en-Y gastric bypass (Primary Dx) Start: 05-07-2022 End: 05-07-2022 Telemedicine consultation with patient Jona Bermudez MD Work Phone: [facility] Start: 04-08-2022 End: 04-08-2022 ambulatory Fellow [facility] Work Phone: General Surgery Comment on above: Status post gastric bypass for obesity (Primary Dx); Obesity, Class III, BMI 40-49.9 (morbid obesity) ([facility]) Start: 04-08-2022 End: 04-08-2022 Telemedicine consultation with patient Fellow Scott Main Work Phone: [facility] Start: 03-18-2022 End: 03-18-[address] [facility] Pacc [address] Work Phone: [facility] Start: 03-18-2022 End: 03-18-2022 ambulatory Pac [...] Emergency department patient visit [id number] Other Phone (unformatted): [phone] Start: 01-07-2022 End: 01-07-2022 ambulatory DANUTA RENALDO Facility: Start: 01-05-2022 End: 01-05-2022 Departed Referred PHYSICIAN [facility] Start: 12-24-2021 Admission to [facility] center Jona Bermudez MD Work Phone: General Surgery Comment on above: 02/01/2022 ([facility] r[facility] date) Start: 12-24-2021 ambulatory Jona Bermudez MD Work Phone: [facility] Start: 12-23-2021 ambulatory Danny fishman DO Work Phone: General Surgery Comment on above: Question regarding C OMP METABOLIC PANEL Start: 12-23-2021 Telephone encounter Danny Cristina DO Work Phone: General Surgery Comment on above: Results Start: 12-03-2021 End: 12-03-2021 Patient encounter procedure Nurse Card [facility] Rej Work Phone: Cardiology Comment on above: Class 3 severe obesi ty with body mass index (BMI) of 50.0 to 59.9 in adult, unspecified obesity type, unspecified whether serious comorbidity present (HCC) Start: 12-01-2021 End: 12-01-[address] General Surgery Comment on above: Patient Education; R eassessment Start: 11-28-2021 End: 11-28-2021 Subsequent hospital visit by physician [facility] Work Phone: [facility] Radiology Ultrasound Comment on above: Class 3 severe obesi ty with body mass index (BMI) of 50.0 to 59.9 in adult, unspecified obesity type, unspecified whether serious comorbidity present (HCC) [E66.01, Z68.43] Start: 11-28-2021 End: 11-28-2021 Subsequent hospital visit by physician [facility] Work Phone: [facility] Radiology General Comment on [...] Start: 11-12-2021 End: 11-12-2021 Admission to establishment [facility] Start: 11-12-2021 End: 11-12-2021 Preprocedural examination done [facility]est[facility] Start: 11-12-2021 End: 11-12-2021 ambulatory Maria T Lares APRN.CNP Work Phone: Pre Anesthesia Comment on above: Pre-op Instructions Preoperative examina tion (Primary Dx); Morbidly obese (HCC); Fatty liver; Anxiety and depression Start: 11-12-2021 E-mail encounter jailyn verde caregiver Maria T Lares JEANNINE Work Phone: [facility] Start: 11-07-2021 End: 11-07-2021 ambulatory Danny Cristina DO Work Phone: General Surgery Comment on above: Class 3 severe obesi ty with body mass index (BMI) of 50.0 to 59.9 in adult, unspecified obesity type, unspecified whether serious comorbidity present (HCC) (Primary Dx); PCOS (polycystic ovarian syndrome) Start: 11-07-2021 End: 11-07-2021 Telemedicine consultation with patient Danny Cristnia DO Work Phone: [facility] Start: 10-27-2021 End: 10-27-2021 ambulatory Myron Jacome Other [employer] Other Start: 10-27-2021 Office outpatient vi sit 15 minutes Myron Jacome [employer] [facility] [employer] Start: 10-01-[address] ELMIRA SNOW [...] DTaP,Tdap,Td Vaccine (3 - Td or Tdap) [facility] Start: 12-01-2023 [facility] Start: 02-05-2023 Covid-19 Vaccine ( season) Covid-19 Vaccine ( season) [facility] Start: 02-05-2023 Influenza vaccination [facility] Start: 10-23-2022 Adult depression screening assessment DEPRESSION SCREENING [facility] Start: 02-05-2022 Influenza vaccination C [facility] Start: 11-07-2021 End: 01-07-2022 CBC W Auto Differential panel - Blood CBC + DIFF Lab Routine Class 3 severe obesity with body mass index (BMI) of 50.0 to 59.9 in adult, unspecified obesity type, unspecified whether serious comorbidity present (HCC) Expected: 11/07/2021, Expires: 01/07/2022 [facility] Work Phone: Comment on above: Expected: 11/07/2021 , Expires: 01/07/2022 Start: 11-07-2021 End: 01-07-2022 Comprehensive metabolic 2000 panel - Serum or Plasma COMP METABOLIC PANEL Lab Routine Class 3 severe obesity with body mass index (BMI) of 50.0 to 59.9 in adult, unspecified obesity type, unspecified whether serious comorbidity present (HCC) Expected: 11/07/2021, Expires: 01/07/2022 [facility] Work Phone: Comment on above: Expected: 11/07/2021 , Expires: 01/07/2022 Start: 11-07-2021 End: 01-07-2022 FERRITIN BLD FERRITIN BLD Lab Routine Class 3 severe obesity with body mass index (BMI) of 50.0 to 59.9 in adult, unspecified obesity type, unspecified whether serious comorbidity present (HCC) Expected: 11/07/2021, Expires: 01/07/2022 [facility] Work Phone: Comment on above: Expected: 11/07/2021 , Expires: 01/07/2022 Start: 11-07-2021 End: 01-07-2022 Folate [Mass/volume] in Serum or Plasma FOLATE SERUM Lab Routine Class 3 severe obesity with body mass index (BMI) of 50.0 to 59.9 in adult, unspecified obesity type, unspecified whether serious comorbidity present (HCC) Expected: 11/07/2021, Expires: 01/07/2022 [facility] Work Phone: Comment on above: Expected: 11/07/2021 , Expires: 01/07/2022 Start: 11-07-2021 End: 01-07-2022 Hemoglobin A1c/Hemoglobin.total in Blood HGB A1C Lab Routine PCOS (polycystic ovarian syndrome) Expected: 11/07/2021, Expires: 01/07/2022 [facility] Work Phone: Comment on above: Expected: 11/07/2021 , Expires: 01/07/2022 Start: 11-07-2021 End: 01-07-2022 IRON + TIBC IRON + TIBC Lab Routine Class 3 severe obesity with body mass index (BMI) of 50.0 to 59.9 in adult, unspecified obesity type, unspecified whether serious comorbidity present (HCC) Expected: 11/07/2021, Expires: 01/07/2022 [facility] Work Phone: Comment on above: Expected: 11/07/2021 , Expires: 01/07/2022 Start: 11-07-2021 End: 01-07-2022 LIPID PANEL BASIC LIPID PANEL BASIC Lab Routine Class 3 severe obesity with body mass index (BMI) of 50.0 to 59.9 in adult, unspecified obesity type, unspecified whether serious comorbidity present (HCC) Expected: 11/07/2021, Expires: 01/07/2022 [facility] Work Phone: Comment on above: Expected: 11/07/2021 , Expires: 01/07/2022 Start: 11-07-2021 End: 01-07-2022 PTH INTACT BLD PTH INTACT BLD Lab Routine Class 3 severe obesity with body mass index (BMI) of 50.0 to 59.9 in adult, unspecified obesity type, unspecified whether serious comorbidity present (HCC) Expected: 11/07/2021, Expires: 01/07/2022 [facility] Work Phone: Comment on above: Expected: 11/07/2021 , Expires: 01/07/2022 Start: 11-07-2021 End: 01-07-2022 Thyrotropin [Units/volume] in Serum or Plasma TSH BLD Lab Routine Class 3 severe obesity with body mass index (BMI) of 50.0 to 59.9 in adult, unspecified obesity type, unspecified whether serious comorbidity present (HCC) Expected: 11/07/2021, Expires: 01/07/2022 [facility] Work Phone: Comment on above: Expected: 11/07/2021 , Expires: 01/07/2022 Start: 11-07-2021 End: 01-07-2022 VITAMIN B1 (THIAMINE), WHOLE BLOOD VITAMIN B1 (THIAMINE), WHOLE BLOOD Lab Routine Class 3 severe obesity with body mass index (BMI) of 50.0 to 59.9 in adult, unspecified obesity type, unspecified whether serious comorbidity present (HCC) Expected: 11/07/2021, Expires: 01/07/2022 [facility] Work Phone: Comment on above: Expected: 11/07/2021 , Expires: 01/07/2022 Start: 11-07-2021 End: 01-07-2022 VITAMIN B12 BLOOD VITAMIN B12 BLOOD Lab Routine Class 3 severe obesity with body mass index (BMI) of 50.0 to 59.9 in adult, unspecified obesity type, unspecified whether serious comorbidity present (HCC) Expected: 11/07/2021, Expires: 01/07/2022 [facility] Work Phone: Comment on above: Expected: 11/07/2021 , Expires: 01/07/2022 Start: 11-07-2021 End: 01-07-2022 VITAMIN D 25 HYDROXY VITAMIN D 25 HYDROXY Lab Routine Class 3 severe obesity with body mass index (BMI) of 50.0 to 59.9 in adult, unspecified obesity type, unspecified whether serious comorbidity present (HCC) Expected: 11/07/2021, Expires: 01/07/2022 [facility] Work Phone: Comment on above: Expected: 11/07/2021 , Expires: 01/07/2022 Start: 09-29-2021 End: 09-15-2022 EGD BARIATRIC EGD BARIATRIC Endoscopy Routine Morbid obesity due to excess calories (HCC) Expected: 09/29/2021, Expires: 09/15/2022 [facility] Work Phone: Comment on above: Expected: 09/29/2021 , Expires: 09/15/2022 Start: 05-21-2021 COVID-19 VACCINE (5 - Booster) COVID-19 VACCINE (5 - Booster) [facility] Start: 05-21-2021 COVID-19 VACCINE (5 - Pfizer series) COVID-19 VACCINE (5 - Pfizer series) [facility] Start: 2019 HPV TESTING HPV TESTING [facility] Start: 2010 PAP TESTING PAP TESTING [facility] Start: 2008 Urine microalbumin profile DTAP,TDAP,TD (1 - Tdap) [facility] Start: 2007 HEPATITIS C SCREENING HEPATITIS C [facility] Start: 2007 HIV SCREENING HIV SCREENING [facility] Start: 2001 Adult depression screening assessment DEPRESSION SCREENING [facility] Start: 1989 HEPATITIS B (1 of 3 - 3-dose series) HEPATITIS B (1 of 3 - 3-dose series) [facility] Start: 1989 Hepatitis B Vaccine (1 of 3 - 3-dose series) Hepatitis B Vaccine (1 of 3 - 3-dose series) [facility] Basophils [#/volume] in Blood by Automated count [facility] Basophils/100 leukoc ytes in Blood by Automated count [facility] End: 11-07-2022 ECG COMPLETE ECG COMPLETE ECG Routine Class 3 severe obesity with body mass index (BMI) of 50.0 to 59.9 in adult, unspecified obesity type, unspecified whether serious comorbidity present (HCC) 1 Occurrences starting 11/07/2021 until 11/07/2022 [facility] Work Phone: Comment on above: 1 Occurrences starti ng 11/07/2021 until 11/07/2022 End: 09-16-2022 EGD DIAGNOSTIC EGD DIAGNOSTIC Endoscopy Routine Pre-op exam 1 Occurrences starting 09/16/2021 until 09/16/2022 [facility] Work Phone: Comment on above: 1 Occurrences starti ng 09/16/2021 until 09/16/2022 Eosinophils/100 leukocytes in Blood by Automated count [facility] Lymphocytes [#/volum e] in Blood by Automated count [facility] Lymphocytes/100 leukocytes in Blood by Automated count [facility] Monocytes [#/volume] in Blood by Automated count [facility] Monocytes/100 leukoc ytes in Blood by Automated count [facility] Neutrophils [#/volum e] in Blood by Automated count [facility] Neutrophils/100 leukocytes in Blood by Automated count [facility] Nucleated erythrocyt es [Presence] in Blood by Automated count [facility] Patient Education care [facility] Work Phone: Patient referral [facility] Work Phone: End: 12-07-2022 Radiologic exam chest 2 views XR CHEST 2V FRONTAL/LAT Radiology Routine Class 3 severe obesity with body mass index (BMI) of 50.0 to 59.9 in adult, unspecified obesity type, unspecified whether serious comorbidity present (HCC) 1 Occurrences starting 11/07/2021 until 12/07/2022 [facility] Work Phone: Comment on above: 1 Occurrences starti ng 11/07/2021 until 12/07/2022 End: 12-07-2022 Us abdominal real time w/image limited US ABD RT UPPER QUADRANT Radiology Routine Class 3 severe obesity with body mass index (BMI) of 50.0 to 59.9 in adult, unspecified obesity type, unspecified whether serious comorbidity present (HCC) 1 Occurrences starting 11/07/2021 until 12/07/2022 [facility] Work Phone: Comment on above: 1 Occurrences starti ng 11/07/2021 until 12/07/2022 [facility] Immunizations Immunization Date Immunization Notes Care Provider Fa cili 03-11-2022 influenza virus vacc ine, unspecified formulation Jona Bermudez MD Work Phone: [facility] Payers Date Payer Category Payer Unknown MMO MMO [employer] [id number] 2021-Present [phone] [address] [place] [address] PPO [id number] 2021 Unknown 1989 Unknown [id number] 1989 Unknown [id number] 1989 Unknown [id number] 1989 Unknown [id number] [id number] 1989 Unknown [id number] [id number] 1989 Unknown [id number] [id number] 1989 Unknown [id number] [id number] 1989 Unknown [id number] [id number] 1989 Unknown [id number] [id number] 1989 Unknown [id number] [id number] 1989 Unknown [id number] [id number] 1989 Unknown [id number] [id number] 1959 Self-pay 1959 Unknown [id number] [id number] Unknown [id number] Unknown [id number] Social History Date Type Detail Facility Start: 09-15-2021 End: 03-09-2024 Tobacco smoking status MSIS Never smoked tobacco [facility] Start: 09-15-2021 End: 03-18-2022 Tobacco use and exposure Smokeless tobacco non-user [facility] Start: 1990 Sex Assigned At Not on file [facility] Start: 09-05-2021 End: 03-26-2022 Exposure to SARS-CoV-2 (event) Not sure [facility] Start: 11-12-2021 Alcohol intake Current drinke r of alcohol (finding) [facility] Start: 11-12-2021 History SDOH Alcohol Comment Not weekly [facility] Start: 03-18-2022 End: 12-30-2022 Sex Assigned At [facility] Start: 1990 Sex Assigned At Female F [facility] Tobacco smoking consumption unknown [facility] Other Phone (unformatted): [phone] Start: 02-13-2022 End: 02-23-2022 Exposure to SARS-CoV-2 (event) Yes [facility] Start: 03-18-2022 End: 04-13-2023 Alcohol intake Ex-drinker (finding) [facility] Start: 03-18-2022 End: 12-30-2022 History of Social function [facility] Adult Depression Screening Assessment 0 [facility] Clinical Notes 12-20-2020 to 05-05-[address] - 05/05/2023 3:54 PM Jona Adams MD - 04/13/2023 10:20 AM ESTPatient Bita Lei RD - 12/30/2022 1:16 PM EDTPatient Instructions Note Date & Type Note Facility 05-05-2023 Note HNO ID: [id number] Author: Bita Vigil RD Service: ? Author Type: Registered Dietitian Type: Progress Notes Filed: 05/05/2023 5:03 PM Note Text: [facility] Nutrition Therapy: Virtual Consult - Re-assessment I have communicated my name and active licensure. The patient?s identity and physical location were verified at the time of this visit. Either the patient or their legal associate sales representative has been informed of the [...] Capsule with 45 mg Iron AND additional 6078-8493 mg per day Calcium Citrate 5. 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 Exercise: strive for daily activity. Increase as tolerated to goal of 200 minutes/week with combination of cardio and strength training exercise. 6. Practice mindful eating habits-take small portions, eat slowly, chew thoroughly Actions to implement interventions: see assessment Diet History: Breakfast - protein shake (20 gm protein powder, [employer] milk +/- PB2) OR eggs, breakfast meat [...] Physical limitations affect (more content not included)... [facility] 05-05-[address] - [...] Capsule with 45 mg Iron AND additional 4068-2970 mg per day Calcium Citrate 5. Exercise: [...] last 30 minutes documented in this encounter [facility] 05-05-2023 History of Present illness Narrative [facility] Nutrition Therapy: Virtual Consult - Re-assessment I have communicated my name and active licensure. The patient s identity and physical location were verified at the time of this visit. Either the patient or their legal associate sales representative has been informed of the [...] Capsule with 45 mg Iron AND additional 3652-8682 mg per day Calcium Citrate 5. 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 Exercise: strive for daily activity. Increase as tolerated to goal of 200 minutes/week with combination of cardio and strength training exercise. 6. Practice mindful eating habits-take small portions, eat slowly, chew thoroughly Actions to implement interventions: see assessment Diet History: Breakfast - protein shake (20 gm protein powder, [place] milk +/- PB2) OR eggs, breakfast meat [...] 3:54 PM PAGER: documented in this encounter [facility] 04-13-2023 Note HNO ID: [id number] Author: Jona Johns MD Service: ? Author Type: Physician Type: Progress Notes Filed: 04/13/2023 10:55 AM Note Text: Metabolic Surgery Postoperative Virtual Clinic Visit Name: Funmilayo Conway I have communicated my name and active licensure. The patient's identity and physical location were verified at the time of this visit. Either the patient or their legal associate sales representative has been informed of the [...] next week Jona Cormier MD, FACS, GABI blueprinter [facility] Bariatric Fellowship Dental ResidentWeaver Needle Loom laparoscopic Surgery Bariatric and Metabolic [place] [facility] 04-13-2023 History of Present illness Narrative Images from the original note were not included. Metabolic Surgery Postoperative Virtual Clinic Visit Name: Funmilayo Conway I have communicated my name and active licensure. The patient's identity and physical location were verified at the time of this visit. Either the patient or their legal associate sales representative has been informed of the [...] next week Jona Cormier MD, FACS, GABI blueprinter [facility] Bariatric Fellowship Dental ResidentWeaver [employer]le [employer] laparoscopic Surgery Bariatric and Metabolic [place] documented in this encounter [facility] 12-30-2022 Note HNO ID: [id number] Author: Bita Vigil RD Service: ? Author [...] states doing well with no current concerns. 4100-7549 calories/day - advancing appropriately 80-100 protein intake/day - meeting needs 64+ fluid intake/day - meeting needs Taking all recommended vitamin/minerals from [facility] 1/day MVI with 45 mg Fe, 600 mg Ca citrated BID, and biotin. No new labs. Resting Metabolic Rate: 1722 Energy needs for weight loss 8257-1053 (15-20 kcals/kg CBW) Protein needs: 85 grams [...] Multivitamin Capsule with 45 mg Iron AND 6852-6325 mg per day Calcium Citrate 5. Exercise: [...] 25 minutes - Group Bita Vigil RD [facility] 12-30-[address] - [...] Multivitamin Capsule with 45 mg Iron AND 5367-1737 mg per day Calcium Citrate 5. Exercise: strive for daily activity. Increase as tolerated to goal of 200 minutes/week with combination of cardio and strength training exercise. 6. Practice mindful eating habits-take small portions, eat slowly, chew thoroughly documented in this encounter [facility] 12-30-2022 History of Present illness Narrative This [...] states doing well with no current concerns. 4173-5923 calories/day - advancing appropriately 80-100 protein intake/day - meeting needs 64+ fluid intake/day - meeting needs Taking all recommended vitamin/minerals from [facility] 1/day MVI with 45 mg Fe, 600 mg Ca citrated BID, and biotin. No new labs. Resting Metabolic Rate: 1722 Energy needs for weight loss 5002-6155 (15-20 kcals/kg CBW) Protein needs: 85 grams [...] Multivitamin Capsule with 45 mg Iron AND 9064-3389 mg per day Calcium Citrate 5. Exercise: [...] Bita Vigil RD documented in this encounter [facility] 09-09-2022 Note HNO ID: [id number] Author: Bita Vigil RD Service: ? Author [...] Rate: 1889 Energy needs for weight loss 6748-6653 (10-15 kcals/kg CBW) Protein needs: 85 grams [...] 32 minutes - Group Bita Vigil RD [facility] 06-09-2022 Note HNO ID: [id number] Author: Bita Vigil RD Service: ? Author Type: Registered Dietitian Type: Progress Notes Filed: 06/09/2022 10:17 AM Note Text: [facility] Nutrition Therapy: Virtual Consult - Re-assessment This [...] mg Iron and Calcium Citrate (total of 4469-0984 mg/day) * take calcium citrate separately from [...] Rate: 1993 Energy needs for weight loss 9756-0072 (10-15 kcals/kg CBW) Protein needs: 85 grams [...] Bariatric Multivitamin and Calcium Citrate (total of 3577-7009 mg/day) * take calcium citrate separately from [...] veggie OR chili Snack - none OR marshallese yogurt Dinner - same as lunch Snack [...] 1-3 days/week) Anthropometrics: (more content not included)... [facility] 06-09-[address] - [...] mg Iron and Calcium Citrate (total of 7573-4993 mg/day) * take calcium citrate separately from [...] assessment (294 lbs) documented in this encounter [facility] 06-09-2022 History of Present illness Narrative [facility] Nutrition Therapy: Virtual Consult - Re-assessment This [...] mg Iron and Calcium Citrate (total of 6336-6989 mg/day) * take calcium citrate separately from [...] Rate: 1992 Energy needs for weight loss 5470-4702 (10-15 kcals/kg CBW) Protein needs: 85 grams [...] Bariatric Multivitamin and Calcium Citrate (total of 2520-9640 mg/day) * take calcium citrate separately from Multivitamin with iron at least 2 hours apart and 4 hours apart from additional calcium [email or web address] - Bariatric Choice: 4 Complete Multivitamins (chewables) [...] veggie OR chili Snack - none OR marshallese yogurt Dinner - same as lunch Snack [...] 9:25 AM PAGER: documented in this encounter [facility] 05-17-2022 Note HNO ID: [id number] Author: Louise Tobin, PhD Service: ? Author Type: Psychologist Type: Progress Notes Filed: 05/18/2022 8:58 AM Note Text: [facility] DEPARTMENT OF PSYCHIATRY AND PSYCHOLOGY/[facility] Bariatric Behavioral Services Progress Note May 17, 2022 Billing codes: FAYE Tobin CPT Code: 86295 Brief Emotional/Behavioral Assessment with scoring/documentation [id number] Virtual GROUP PSYCHOTHERAPY Time initiated session: 8:30 AM to 9:30 AM Index Surgery Date of Surgery: 03/26/22 Surgeon: Dr. Cormier. Surgical Procedure: gastric bypass Current weight: 283 pounds Psychologist: Piedad Pt was seen in a virtual group. Participants were given the opportunity to discuss their experience since surgery and ask questions of other group members. The group tie worker addressed questions and concerns related to psychological [...] hoped. She was able to navigate a Splash well - I felt normal. Patient mood [...] BMI team Louise Tobin, PhD, RD, LD, [facility] ACS-CEP, Psychologist [facility] 05-07-2022 History of Present illness Narrative [...] & Bariatric Surgery Fellow Bariatric & Metabolic [place] [facility] STAFF ATTESTATION: I have reviewed the note [...] which included preparing to see the patient, [id number] patient care, completing clinical documentation, obtaining and/or [...] Jona Cormier MD documented in this encounter [facility] 04-08-2022 History of Present illness Narrative BARIATRIC SURGERY CLINIC FOLLOW UP NOTE Clinic Date: 04/08/2022 Funmilayo Conway, 31 year old [address] [facility] [address] This visit was performed virtually (phone conversation) [...] 03/18/22: 143 kg (315 lb 4.8 oz). [place] weight: 68.5 kg (150 lb 15.1 oz) [...] rashes or skin changes. PHYSICAL EXAM: PHYSICAL EXAMINATION:[facility] 03/16/2021 GENERAL: No apparent distress. Pt [...] and Bariatric Surgery documented in this encounter [facility] 03-18-2022 History of Present illness Narrative BARIATRIC SURGERY PREOPERATIVE VISIT NOTE Name: Funmilayo Conway Medical Record: [id number] Encounter No.: [id number] Funmilayo Conway is a 31 year old [...] which included preparing to see the patient, [id number] patient care, completing clinical documentation, obtaining and/or reviewing separately obtained history, counseling and educating the patient/family/caregiver, and ordering medications, tests, or procedures. Prescriptions were explained and provided to the patient. Jona Bermudez MD Advanced Laparoscopic and Bariatric Surgery documented in this encounter [facility] 03-18-2022 Instructions Kwame Rodriguez APRN.COMMERCIAL LEASING MANAGER - 03/18/2022 2:08 PM EDT PATIENT PREOPERATIVE INSTRUCTIONS Jerardo Johns* has scheduled you for your procedure at this surgery center: [facility] Scheduling Office: [phone] --[address] [place] [address]. Please read below carefully for your personalized [...] Procedures: - YOU MUST HAVE A RESPONSIBLE CARE MANAGEMENT SPECIALIST TAKE YOU HOME. A KILN SETTER OR FITTING ROOM INSPECTOR CANNOT BE MADE A RESPONSIBLE CARE MANAGEMENT SPECIALIST. - We recommend that a responsible person [...] call the Wednesday before. Your surgeon s material scheduler will tell you what time to call the office. - If you have not reached the departmental material scheduler by 5 P.M., call [phone] after 5 P.M. the day before your surgery. Please be aware that emergency situations arise, which may delay or change your surgical time. If this happens, we will notify you as soon as possible and regret any inconvenience. If you already have an Advance Directive, please fax a copy to [phone] or email to for it to be [...] Kwame Rodriguez APRN.JOSE documented in this encounter [facility] 03-18-2022 History and physical note HISTORY AND [...] fevers. Neuro: No history of TIA's, stroke, STAFFING CONSULTANT tumor, impaired sensorium, hemiplegia, paraplegia or quadraplegia. No neurological symptoms or problems. Respiratory: No history of current cough or dyspnea, or pneumonia in the past 6 weeks. No history of respiratory/pulmonary symptoms or problems. Cardiovascular: No history of HTN requiring medication, no history of angina, CHF, ID, cardiac surgery or stents. Denies rest pain, [...] or incontinence,, stones or chronic kidney disease TAILOR'S AIDE: Negative for abnormal vaginal bleeding, abnormal vaginal [...] TIME: 1:59 PM documented in this encounter [facility] 03-13-2022 Miscellaneous Notes BMI SPECIALTY CARE COORDINATION [...] Jagruti Escobar RN documented in this encounter [facility] 03-10-[address] - 03/10/2022 [...] fish, low fat dairy - cottage cheese, Czech yogurt, light yogurt, cheese, ricotta cheese, nuts, [...] Calcium Citrate twice a day (total of 1068-3233 mg/day) * take calcium citrate separately from Multivitamin with iron at least 2 hours apart and 4 hours apart from additional calcium www.expressor software.RiffRaff - Bariatric Choice: 4 complete multivitamins (chewable) per day Www.bariatricKueski.RiffRaff - Bariatric Advantage: 2 Multivitamins and 3 Calcium Citrate Chewable per day * take calcium citrate separately from Multivitamin with iron at least 2 hours apart and 4 hours apart from additional calcium www.bariatricadvantage.RiffRaff B complex with at least 75 mg [...] weeks post op documented in this encounter [facility] 03-10-2022 History of Present illness Narrative This [...] fish, low fat dairy - cottage cheese, Czech yogurt, light yogurt, cheese, ricotta cheese, nuts, [...] - Celebrate: multiple options- look on website Www.celebratevitamins.RiffRaff - [facility]: 1 Multivitamin and Calcium Citrate twice a day (total of 4494-5197 mg/day) * take calcium citrate separately from Multivitamin with iron at least 2 hours apart and 4 hours apart from additional calcium www.Mainkeys Incare[employer] Genetics Technologies Corporation.RiffRaff - Bariatric Choice: 4 complete multivitamins (chewables) per day Www.bariatricchoice.com - Bariatric Advantage: 2 Multivitamins and 3 Calcium Citrate Chewables per day * take calcium citrate separately from Multivitamin with iron at least 2 hours apart and 4 hours apart from additional calcium www.bariatricadvantage.RiffRaff B complex with at least 75 mg [...] fish, low fat dairy - cottage cheese, Czech yogurt, light yogurt, cheese, ricotta cheese, nuts, [...] - Celebrate: multiple options- look on website Www.[employer]Media Group.RiffRaff - [facility]: 1 Multivitamin and Calcium Citrate twice a day (total of 9851-2749 mg/day) * take calcium citrate separately from Multivitamin with iron at least 2 hours apart and 4 hours apart from additional calcium www.expressor software.RiffRaff - Bariatric Choice: 4 complete multivitamins (chewable) per day Www.bariatricchoice.RiffRaff - Bariatric Advantage: 2 Multivitamins and 3 Calcium Citrate Chewable per day * take calcium citrate separately from Multivitamin with iron at least 2 hours apart and 4 hours apart from additional calcium www.bariatricadiMedia.fmage.RiffRaff B complex with at least 75 mg [...] RDN, JOSE, SARAH documented in this encounter [facility] 12-23-2021 Miscellaneous Notes The following approved medication [...] Danny Cristina DO documented in this encounter [facility] 12-03-2021 Nurse Note EKG completed and reviewed; documented in this encounter [facility] 12-01-2021 History of Present illness Narrative This [...] Bariatric Multivitamin and Calcium Citrate (total of 1497-3731 mg/day) * take calcium citrate separately from Multivitamin with iron at least 2 hours apart and 4 hours apart from additional calcium www.procarenow.RiffRaff - Bariatric Choice: 4 Complete Multivitamins (chewables) per day Www.bariatricchoice.com - Bariatric Advantage: 2 Multivitamins and 3 Calcium Citrate Chewables per day * take calcium citrate separately from Multivitamin with iron at least 2 hours apart and 4 hours apart from additional calcium Www.bariatricadvantage.RiffRaff Pre-op goal weight: 319 pounds Protein needs: [...] fish, low fat dairy - cottage cheese, Czech yogurt, light yogurt, cheese, ricotta cheese, nuts, [...] - Celebrate: multiple options- look on website Www.Pacific Light TechnologiesrateIdenIve.RiffRaff - [employer] Health: 1 Multivitamin and Calcium Citrate twice a day (total of 6450-8947 mg/day) * take calcium citrate separately from Multivitamin with iron at least 2 hours apart and 4 hours apart from additional calcium www.expressor software.RiffRaff - Bariatric Choice: 4 complete multivitamins (chewables) per day Www.bariatricchoice.RiffRaff - Bariatric Advantage: 2 Multivitamins and 3 Calcium Citrate Chewables per day * take calcium citrate separately from Multivitamin with iron at least 2 hours apart and 4 hours apart from additional calcium www.bariatricadvantage.RiffRaff B complex with at least 75 mg [...] Davida Kaur MS,RD,LEO,LD documented in this encounter [facility] 11-28-2021 Note HNO ID: [id number] Author: Keira Salvador RDMS, RVT Service: Radiology Author Type: Spring Coiler Hand Type: Progress Notes Filed: 11/28/2021 1:52 PM [...] RDMS, RVT November 28, 2021 1:52 PM [facility] 11-28-2021 History of Present [...] 2021 1:52 PM documented in this encounter [facility] 11-28-2021 Note HNO ID: [id number] Author: RT Leann(Naresh) Service: ? Author Type: [...] RT Leann(R) November 28, 2021 12:58 PM [facility] 11-28-2021 History of Present [...] 2021 12:58 PM documented in this encounter [facility] 11-26-2021 History and physical note UPDATED HISTORY [...] can be found in the attached. SIGNATURE: Mluugeta Salmon MD PATIENT NAME: Funmilayo Conway DATE: November 26, 2021 TIME: 1:10 PM Images from the original note were not included. HISTORY AND PHYSICAL EXAMINATION SERVICE DATE: 11/12/2021 SERVICE TIME: 3:26 PM PRIMARY CARE PHYSICIAN: No Pcp This is a virtual visit using Hamilton Thorne video visit. It required patient-provider interaction for [...] fevers. Neurological: No history of TIA's, stroke, STAFFING CONSULTANT tumor, impaired sensorium, hemiplegia, paraplegia or quadraplegia. No neurological symptoms or problems. Respiratory: No history of current cough or dyspnea, or pneumonia in the past 6 weeks. No history of respiratory/pulmonary symptoms or problems. Cardiovascular: No history of HTN requiring medication, no history of angina, CHF, ID, cardiac surgery or stents. Denies rest pain, [...] > 1 time per night or hematuria. TAILOR'S AIDE: Negative for abnormal vaginal bleeding, abnormal vaginal [...] or any previous visit (from the past 96380 hour(s)). Assessment Morbidly obese (HCC) Assessment: Body [...] or younger Non-male patient STOP-Bang Score: 3 [id number] Score: Age: <65 Sex: female CHF history: No Hypertension history: No Stroke/TIA/thromboembolism history: No Vascular disease history: No Diabetes history: No [id number] Score: 1 ASA Class: 3 ANESTHESIA FINDINGS: [...] PM PAGER/CONTACT #: documented in this encounter [facility] 11-12-2021 History and physical note Images from the original note were not included. HISTORY AND PHYSICAL EXAMINATION SERVICE DATE: 11/12/2021 SERVICE TIME: 3:26 PM PRIMARY CARE PHYSICIAN: No Pcp This is a virtual visit using Hamilton Thorne video visit. It required patient-provider interaction for [...] fevers. Neurological: No history of TIA's, stroke, STAFFING CONSULTANT tumor, impaired sensorium, hemiplegia, paraplegia or quadraplegia. No neurological symptoms or problems. Respiratory: No history of current cough or dyspnea, or pneumonia in the past 6 weeks. No history of respiratory/pulmonary symptoms or problems. Cardiovascular: No history of HTN requiring medication, no history of angina, CHF, ID, cardiac surgery or stents. Denies rest pain, [...] > 1 time per night or hematuria. TAILOR'S AIDE: Negative for abnormal vaginal bleeding, abnormal vaginal [...] or any previous visit (from the past 70624 hour(s)). Assessment Morbidly obese (HCC) Assessment: Body [...] or younger Non-male patient STOP-Bang Score: 3 [id number] Score: Age: <65 Sex: female CHF history: No Hypertension history: No Stroke/TIA/thromboembolism history: No Vascular disease history: No Diabetes history: No [id number] Score: 1 ASA Class: 3 ANESTHESIA FINDINGS: [...] PM PAGER/CONTACT #: documented in this encounter [facility] 11-12-2021 Instructions Maria T Lares APRN.CNP - 11/12/2021 3:40 PM EDT PATIENT PREOPERATIVE INSTRUCTIONS Mulugeta Salmon MD has scheduled you for your procedure at this surgery center: [facility]: [phone] --[id number] [place] [address]. Please enter through the entrance closest to [...] Procedures: - YOU MUST HAVE A RESPONSIBLE CARE MANAGEMENT SPECIALIST TAKE YOU HOME. A KILN SETTER OR FITTING ROOM INSPECTOR CANNOT BE MADE A RESPONSIBLE CARE MANAGEMENT SPECIALIST. - We recommend that a responsible person [...] Advance Directive, please fax a copy to [phone] or email to for it to be [...] T Lares APRN.CNP documented in this encounter [facility] 11-07-2021 Instructions Danny Cristina, - 11/07/2021 9:39 AM EDT Lovely Conway , Thank you for completing your visit today and we welcome you to the surgical program. We are sure that you will still have some additional questions and encourage you to reach out to your care provider via SnapNameshart OR your Patient Navigator. Patient Navigators are [...] free to ask for a hard copy. [email or web address] en Once you complete all of the requirements (testing, consultations, diet, etc) from each provider, please call [phone] and select option #5 to initiate insurance approval. Please note scheduling information It is important to keep track of your scheduled appointments to ensure successful completion of our surgical program. Any missed appointments can further delay your pre-surgical work-up. [facility] does offer an opt-in option for getting text message appointment reminders. Please follow the link below if you would like to opt into this service. [email or web address] As part of your surgical work up, [...] You may call your local [facility] to get an appointment. - Lab work- No appointment is needed for this, you may complete at any [facility]. These are usually fasting labs, please be sure to fast (only water permitted) for 10-12 hours prior to the test. -Sleep Study- Please call [phone] or [phone] to get this appointment set up. -Sleep Medicine Consult- (Only needed if sleep study confirms sleep apnea) Please call [phone] or [phone] to schedule an appointment. -Upper GI/ EGD- Please call [phone] to schedule. -Provider follow up visit- Please call [phone] OR [phone] to schedule. Any testing that is completed outside of [facility] will need faxed to [phone]. We look forward to working with you on this journey, Danny Cristina DO documented in this encounter [facility] 11-07-2021 History of Present illness Narrative DISTANCE [...] healthy diet. Since the visit with the curriculum and assessment coordinator, eating less starch, not skipping meals, and eating more vegetables. Characterization of diet:Structured. History of eating disorders: negative Previous Obesity Treatments: commercial diets and dietitian. Exercise: Regular exercise: walking 3 times a week Barriers to regular exercise? None Stress test: no Functional Status: Run a short distance (8.00 METs) Sleep: TANI NO ; CPAP NO Quality:poor, Numerous awakenings Senior Software Architect Work? NO STOP BANG 1. Snoring : [...] PCOS Vitamin D deficiency No history of ID, COPD, asthma, peptic ulcer disease, dyslipidemia, hypothyroidism, [...] Danny Cristina DO documented in this encounter [facility] 10-27-2021 Evaluation note Encounter Date Diagnosis Assessment [...] care instructions given in writting by [facility] document. [employer] Other 04-12-2022 History of Present illness Narrative* Jagruti Escobar RN - 09/16/2021 9:47 AM EDT Opened in error. [facility] History of Present illness Narrative* Jona Bermudez MD - 09/15/2021 3:18 PM EDT Images from the original note were not included. [facility] DEPARTMENT OF SURGERY Jona Cormier M.D. [address] [place] [address], [place] [id number] NAME: Funmilayo Conway [facility] NO: [id number] DATE OF SERVICE: September 15, 2021 This [...] which included preparing to see the patient, [id number] patient care, completing clinical documentation, obtaining and/or reviewing separately obtained history, performing a medically appropriate examination, counseling and educating the pat ient/family/caregiver and ordering medications, tests, or procedures. Jona Bermudez MD Advanced Laparoscopic and Bariatric Surgery [facility] NoteChief Complaint consultation for GI complaints HPI [...] Vaccine Date Status Com (more content not included)...[facility]:Result Comment: Electronically Signed By: EDY JOYCE, Elmira Diamond\Date and Time Signed: 08/04/21 17:32 [id number] NoteAdmission Information Admitting Physician - Neela LIM [...] voiding. [facility] --Other chronic medical conditions as outlined in note. Refer to d/c plan below: -Case reviewed and discussed with Dr. Graham who is in agreement with current d/c plan. Case will be reviewed and discussed with PCP or oncology physician assistant MD once the hospital sheet pile driver operator is able to reach him/her. I [...] made to ensure accuracy, however, inadvertently computerized elevator serviceman mistakes may be present. Significant Findings CT [...] and spleen are not included within the diuid-zv-obpx of this renal stone protocol study. The [...] Ferreira DO 12/20/20 07:33: (more content not included)...[facility] Center[facility] on above:Result Comment: Electronically Signed By: Prerna CAVANAUGH\.br\Date and Time Signed: 12/20/20 10:28 EDT\.br\Electronically Co-Signed By: Jarred GRAHAM MD\.br\Date and Time Co-Signed: 01/13/21 08:22 [id number] NoteMicrobiology PROCEDURE: Blood Culture Charcoal [R1] SOURCE: Blood BODY SITE: Arm L COLLECTED DATE/TIME: 12/19/2020 17:25 EDT RECEIVED DATE/TIME: 12/19/2020 17:39 EDT START DATE/TIME: 12/19/2020 17:39 EDT FREE TEXT SOURCE: IV start Jhon DO, Shiva S. Jhon DO, Shiva S. FINAL REPORTS Final Report [] Verified Date/Time: 12/26/2020 18:00 EDT No growth at 7 days. Performing Locations R1: [facility], [address] [place] [address], [id number] Duffy StreetComment on above:Performed By: #### [id number] #### [facility] [address] [place] [address] [phone] NoteMicrobiology PROCEDURE: Blood Culture Charcoal [R1] SOURCE: Blood BODY SITE: Arm R COLLECTED DATE/TIME: 12/19/2020 17:30 EDT RECEIVED DATE/TIME: 12/19/2020 17:39 EDT START DATE/TIME: 12/19/2020 17:39 EDT FREE TEXT SOURCE: Jhon DO, Shiva S. Jhon DO, Shiva S. FINAL REPORTS Final Report [] Verified Date/Time: 12/26/2020 18:00 EDT No growth at 7 days. Performing Locations R1: [facility] at: [facility], [address] [place] [address], [address] [place] [address], [id number] [address]uffy StreetComment on above:Performed By: #### [id number] ####[facility] [address] [place] [id number] Marsha Flores entered room at this time [...] needs. Anticipated discharge home 12/20. CRM remains available.[facility] CenterComment on above:Result Comment: Electronically Signed By: Janusz SOLIS, Sandra Alatorre\.br\Date and Time Signed: 12/20/20 08:26 [id number] Note Chief Complaint From home, patient complains [...] % (12/19/20:30:00) Lymph Auto: 29.4 % (12/19/20:30:00) [place] Auto: 7.8 % (12/19/20:30:00) Eos Auto: 0.6 % (12/19/20:30:00) Basophil Auto: 0.7 % (12/19/20:30:00) Neutro Absolute: 5.1 E9/L (12/19/20 17:30:00) Lymph Absolute: 2.5 E9/L (12/19/20 17:30:00) [place] Absolute: 0.7 E9/L (12/19/20:30:00) Eos Absolute: 0.1 [...] See #1 3. L (more content not included)...[facility] CenterComment on above: Result Comment: Electronically Signed By: Neela LIM DO\Date and Time Signed: 12/20/20 05:29 EDTEvaluation note* Diagnosis Morbid obesity due to excess calories (HCC)- Primary History of delivery Other postprocedural status documented in this encounter [facility] note* Diagnosis Pre-op exam- Primary Preoperative examination, unspecified documented in this encounter [facility] note* Diagnosis Morbid obesity (HCC)- Primary Morbid obesity documented in this encounter [facility] note* Diagnosis Class 3 severe obesity with body mass index (BMI) of 50.0 to 59.9 in adult, unspecified obesity type, unspecified whether serious comorbidity present (HCC)- Primary PCOS (polycystic ovarian syndrome) Polycystic ovaries documented in this encounter [facility] note* Diagnosis Preoperative examination- Primary Preoperative examination, unspecified Morbidly obese (HCC) Morbid obesity Fatty liver Other chronic nonalcoholic liver disease Anxiety and depression Dysthymic disorder documented in this encounter [facility] note* Diagnosis Pre-op exam Preoperative examination, unspecified documented in this encounter [facility] note* Diagnosis Class 3 severe obesity with body mass index (BMI) of 50.0 to 59.9 in adult, unspecified obesity type, unspecified whether serious comorbidity present (HCC) [facility]* Diagnosis Class 3 severe obesity with body mass index (BMI) of 50.0 to 59.9 in adult, unspecified obesity type, unspecified whether serious comorbidity present (HCC)- Primary Dietary counseling and surveillance Dietary surveillance and counseling PCOS (polycystic ovarian syndrome) Polycystic ovaries documented in this encounter [facility] note* Diagnosis Class 3 severe obesity with body mass index (BMI) of 50.0 to 59.9 in adult, unspecified obesity type, unspecified whether serious comorbidity present (HCC) documented in this encounter [facility] note* Diagnosis Morbid obesity (HCC)- Primary Morbid obesity documented in this encounter [facility] noteNo assessment information availableAcmc Healthcare [facility] Work Phone: Evaluation note* Diagnosis BMI 50.0-59.9, adult (HCC)- Primary Body Mass Index 50.0-59.9, adult Dietary counseling Dietary surveillance and counseling Morbid obesity (HCC) Morbid obesity documented in this encounter [facility] note* Diagnosis Anxiety and depression Dysthymic disorder Morbid obesity (HCC) Morbid obesity documented in this encounter [facility] note* Diagnosis BMI 50.0-59.9, adult (HCC)- Primary Body Mass Index 50.0-59.9, adult PCOS (polycystic ovarian syndrome) Polycystic ovaries History of delivery Other postprocedural status Fatty liver Other chronic nonalcoholic liver disease Morbid obesity (HCC) Morbid obesity documented in this encounter [facility] note* Diagnosis Status post gastric bypass for obesity- Primary Bariatric surgery status Obesity, Class III, BMI 40-49.9 (morbid obesity) (HCC) Morbid obesity documented in this encounter [facility] note* Diagnosis History of Cathie-en-Y gastric bypass- Primary Bariatric surgery status documented in this encounter [facility] note* Diagnosis S/P gastric bypass- Primary Bariatric surgery status Impaired intestinal absorption Unspecified intestinal malabsorption Dietary counseling and surveillance Dietary surveillance and counseling documented in this encounter [facility] note* Diagnosis S/P gastric bypass- Primary Bariatric surgery status Dietary counseling and surveillance Dietary surveillance and counseling documented in this encounter [facility] note* Diagnosis S/P gastric bypass- Primary Bariatric surgery status documented in this encounter [facility] note* Diagnosis S/P gastric bypass- Primary Bariatric surgery status Impaired intestinal absorption Unspecified intestinal malabsorption Dietary counseling and surveillance Dietary surveillance and counseling documented in this encounter [facility] general Narrative - Reported* Type Description Date Medical History PCOS Medical History chronic depression Medical History anxiety Surgical History tonsillectomy and adenoidectomy x2 Surgical History wisdom teeth Surgical History cyst removal from left foot Surgical History nasal surgery Surgical History C section Hospitalization History see above [employer] Other Reason for referral (narrative)* Outpatient Procedure (Routine) - Pending Review Specialty Diagnoses / Procedures Referred By Vipin kunz Referred To Contact [facility] Diagnoses Morbid obesity due to excess calories (HCC) Procedures EGD BARIATRIC ESOPHAGOGASTRODUODENOSC OPY TRANSORAL DIAGNOSTIC Jona Johns MD [address] [place] [address] [facility] [place] [address] [place] [address] Referral ID Status Reason Start Date Expiration Date Visits Requested Visits Authorized [id number] Pending Review Auto-Generat ed Referral 09/29/2021 09/15/2022 1 1 [facility] for referral (narrative)* Outpatient Procedure (Routine) - Authorized Specialty Diagnoses / Procedures [facility] To [facility] Diagnoses Pre-op exam Procedures EGD DIAGNOSTIC ESOPHAGOGASTRODUODENOSC OPY TRANS[place] [address] [place] [address] [facility] [place] [address] Referral ID Status Reason Start Date Expiration Date Visits Requested Visits Authorized [id number] Authorized Auto-Generat ed Referral 09/16/2021 09/16/2022 1 1 [facility] for referral (narrative)* Diagnostic Procedure Only (Routine) - Pending Review Specialty Diagnoses / Procedures [facility]erred To [facility] Diagnoses Class 3 severe obesity with body mass index (BMI) of 50.0 to 59.9 in adult, unspecified obesity type, unspecified whether serious comorbidity present (HCC) Procedures US ABD RT UPPER QUADRANT US ABDOMINAL REAL TIME W/IMAGE LIMITED Danny Cristina DO [address] [place] [address] [facility] Referral ID Status Reason Start Date Expiration Date Visits Requested Visits Authorized [id number] Pending Review Auto-Generat ed Referral 11/07/2021 12/07/2022 [...] W/LEAST 12 LDS W/I&R Danny Cristina DO [address] [place] [address] [facility] [address] [place] [id number] Referral ID Status Reason Start Date Expiration Date Visits Requested Visits Authorized [id number] Pending Review Auto-Generat ed Referral 11/07/2021 11/07/2022 1 1 [facility] for referral (narrative)* Outpatient Procedure (Routine) - Closed Specialty Diagnoses / Procedures Referred By Contac t Referred To Contact [facility] Diagnoses Pre-op exam Procedures EGD DIAGNOSTIC ESOPHAGOGASTRODUODENOSC OPY TRANS[place] [address] [place] [address] [place] [address] [place] [address] Referral ID Status Reason Start Date Expiration Date V isits Requested Visits Authorized [id number] Closed Auto-Generate d Referral 09/16/2021 09/16/2022 1 1 [facility] for referral (narrative)* Diagnostic Procedure Only [...] TIME W/IMAGE LIMITED Danny Cristina DO [address] [id number] [facility] Referral ID Status Reason Start Date Expiration Date V isits Requested Visits Authorized [id number] Closed Auto-Generate d Referral 11/07/2021 12/07/2022 1 1 [facility] for visit Narrative* Outpatient Procedure (Routine) - Closed Specialty Diagnoses / Procedures Referred By Contac t Referred To Contact [facility] Diagnoses Pre-op exam Procedures EGD DIAGNOSTIC ESOPHAGOGASTRODUODENOSC OPY TR[place] [id number] [id number] [facility] [address] [place] [address] Referral ID Status Reason Start Date Expiration Date V isits Requested Visits Authorized [id number] Closed Auto-Generate d Referral 09/16/2021 09/16/2022 1 1 [facility] Diagnostic Procedure Only (Routine) - Closed Specialty Diagnoses / Procedures Referred By Vipin t Referred To Contact [facility] IMAGING Diagnoses Class 3 severe obesity with body mass index (BMI) of 50.0 to 59.9 in adult, unspecified obesity type, unspecified whether serious comorbidity present (HCC) Procedures US ABD RT UPPER QUADRANT US ABDOMINAL REAL TIME W/IMAGE LIMITED Danny Cristina DO [address] [address] [address] [place] [address] Us Imaging Referral ID Status Reason Start Date Expiration Date V isits Requested Visits Authorized [id number] Closed Auto-Generate d Referral 11/07/2021 12/07/2022 1 1 [facility] Summary Purpose Family History No Family History Records FoundNo Family History Records FoundNo Family History Records FoundNo Family History Records FoundNo Family History Records FoundNo Family History Records FoundNo Family History Records FoundNo Family History Records Found Advance Directives Documents on File Type Date Recorded 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 DATE CREATED AUTHOR AUTHOR'S ORGANIZ ATION 02/13/2022 [facility] DATE CREATED AUTHOR AUTHOR'S ORGANIZ ATION 05/08/2023 [facility] DATE CREATED AUTHOR AUTHOR'S ORGANIZ ATION 12/23/2023 [facility] ysician [facility] DATE CREATED AUTHOR AUTHOR'S ORGANIZ ATION 03/12/2024 [facility] EPIC Source Comments (unrecognize d section and content) In the event this informatio n is protected by the Federal Confidentiality of Alcohol and Drug Abuse Patient Records regulations: The Federal rules restrict any use of the information to criminally investigate or prosecute any alcohol or drug abuse patient.[facility] the event this information is protected by the Federal Confidentiality of Alcohol and Drug Abuse Patient Records regulations: The Federal rules restrict any use of the information to criminally investigate or prosecute any alcohol or drug abuse patient.[facility]In the event this information is protected by the Federal Confidentiality of Alcohol and Drug Abuse Patient Records regulations: The Federal rules restrict any use of the information to criminally investigate or prosecute any alcohol or drug abuse patient.[facility]In the event this information is protected by the Federal Confidentiality of Alcohol and Drug Abuse Patient Records regulations: The Federal rules restrict any use of the information to criminally investigate or prosecute any alcohol or drug abuse patient.[facility] HealthIn the event this information is protected by the Federal Confidentiality of Alcohol and Drug Abuse Patient Records regulations: The Federal rules restrict any use of the information to criminally investigate or prosecute any alcohol or drug abuse patient.[facility] HealthIn the event this information is protected by the Federal Confidentiality of Alcohol and Drug Abuse Patient Records regulations: The Federal rules restrict any use of the information to criminally investigate or prosecute any alcohol or drug abuse patient.[facility] HealthIn the event this information is protected by the Federal Confidentiality of Alcohol and Drug Abuse Patient Records regulations: The Federal rules restrict any use of the information to criminally investigate or prosecute any alcohol or drug abuse patient.[facility]In the event this information is protected by the Federal Confidentiality of Alcohol and Drug Abuse Patient Records regulations: The Federal rules restrict any use of the information to criminally investigate or prosecute any alcohol or drug abuse patient.[facility]In the event this information is protected by the Federal Confidentiality of Alcohol and Drug Abuse Patient Records regulations: The Federal rules restrict any use of the information to criminally investigate or prosecute any alcohol or drug abuse patient.[facility]In the event this information is protected by the Federal Confidentiality of Alcohol and Drug Abuse Patient Records regulations: The Federal rules restrict any use of the information to criminally investigate or prosecute any alcohol or drug abuse patient.[facility] HealthIn the event this information is protected by the Federal Confidentiality of Alcohol and Drug Abuse Patient Records regulations: The Federal rules restrict any use of the information to criminally investigate or prosecute any alcohol or drug abuse patient.[facility] HealthIn the event this information is protected by the Federal Confidentiality of Alcohol and Drug Abuse Patient Records regulations: The Federal rules restrict any use of the information to criminally investigate or prosecute any alcohol or drug abuse patient.[facility] HealthIn the event this information is protected by the Federal Confidentiality of Alcohol and Drug Abuse Patient Records regulations: The Federal rules restrict any use of the information to criminally investigate or prosecute any alcohol or drug abuse patient.[facility] HealthIn the event this information is protected by the Federal Confidentiality of Alcohol and Drug Abuse Patient Records regulations: The Federal rules restrict any use of the information to criminally investigate or prosecute any alcohol or drug abuse patient.[facility]In the event this information is protected by the Federal Confidentiality of Alcohol and Drug Abuse Patient Records regulations: The Federal rules restrict any use of the information to criminally investigate or prosecute any alcohol or drug abuse patient.[facility] HealthIn the event this information is protected by the Federal Confidentiality of Alcohol and Drug Abuse Patient Records regulations: The Federal rules restrict any use of the information to criminally investigate or prosecute any alcohol or drug abuse patient.[facility] HealthIn the event this information is protected by the Federal Confidentiality of Alcohol and Drug Abuse Patient Records regulations: The Federal rules restrict any use of the information to criminally investigate or prosecute any alcohol or drug abuse patient.[facility] HealthIn the event this information is protected by the Federal Confidentiality of Alcohol and Drug Abuse Patient Records regulations: The Federal rules restrict any use of the information to criminally investigate or prosecute any alcohol or drug abuse patient.[facility] HealthIn the event this information is protected by the Federal Confidentiality of Alcohol and Drug Abuse Patient Records regulations: The Federal rules restrict any use of the information to criminally investigate or prosecute any alcohol or drug abuse patient.[facility] HealthIn the event this information is protected by the Federal Confidentiality of Alcohol and Drug Abuse Patient Records regulations: The Federal rules restrict any use of the information to criminally investigate or prosecute any alcohol or drug abuse patient.[facility] HealthIn the event this information is protected by the Federal Confidentiality of Alcohol and Drug Abuse Patient Records regulations: The Federal rules restrict any use of the information to criminally investigate or prosecute any alcohol or drug abuse patient.[facility] HealthIn the event this information is protected by the Federal Confidentiality of Alcohol and Drug Abuse Patient Records regulations: The Federal rules restrict any use of the information to criminally investigate or prosecute any alcohol or drug abuse patient.[facility] HealthIn the event this information is protected by the Federal Confidentiality of Alcohol and Drug Abuse Patient Records regulations: The Federal rules restrict any use of the information to criminally investigate or prosecute any alcohol or drug abuse patient.[facility] HealthIn the event this information is protected by the Federal Confidentiality of Alcohol and Drug Abuse Patient Records regulations: The Federal rules restrict any use of the information to criminally investigate or prosecute any alcohol or drug abuse patient.[facility] Reason for Visit (unrecogniz ed section and [...] 12 LDS W/I&R Danny Cristina DO [address] [place] [address] [facility] [address] [place] [address] Referral ID Status Reason Start Date Expiration Date V isits Requested Visits Authorized [id number] Closed Auto-Generate d Referral 11/07/2021 11/07/2022 1 [...] December 01, 2023 End: December 01, 2023 [employer] Relationship Specialty Start Date End Date Pcp, No PCP - General 10/27/21 [employer] Relationship Specialty Start Date End Date Pcp, No PCP - General 10/27/21 [employer] Relationship Specialty Start Date End Date Pcp, No PCP - General 10/27/21 [employer] Relationship Specialty Start Date End Date Marco A Byrd MD [address] [facility], [facility] PCP - General Family Practice 11/26/21 [employer] Relationship Specialty Start Date End Date Marco A Byrd MD [address] [facility], [facility] PCP - General Family Practice 11/26/21 [employer] Relationship Specialty Start Date End Date Marco A Byrd MD [address] [place] [facility] [address] PCP - General Family Practice 11/26/21 [employer] Relationship Specialty Start Date End Date Marco A Byrd MD [address] [place] [facility] [address] PCP - General Family Practice 11/26/21 [employer] Relationship Specialty Start Date End Date Marco A Byrd MD [address] [facility], [facility] PCP - General Family Practice 11/26/21 [employer] Relationship Specialty Start Date End Date Marco A Byrd MD [address] [facility], [facility] PCP - General Family Practice 11/26/21 [employer] Relationship Specialty Start Date End Date Marco A Byrd MD [address] [facility], [facility] PCP - General Family Practice 11/26/21 Team Status: Inactive Member Role Status Dates PHYSICIAN NO FAMILY Primary Care Provider Active Danis Tubbs , DO [employer] Attending Provider Active [employer] Relationship Specialty Start Date End Date Marco A Byrd MD [address] [place] [facility] [address] PCP - General Family Medicine 11/26/21 [employer] Relationship Specialty Start Date End Date Marco A Byrd MD [address] [place] [facility] [address] PCP - General Family Medicine 11/26/21 [employer] Relationship Specialty Start Date End Date Marco A Byrd MD [address] [place] [facility] [address] PCP - General Family Medicine 11/26/21 [employer] Relationship Specialty Start Date End Date Marco A Byrd MD [address] [place] [facility] [address] PCP - General Family Medicine 11/26/21 [employer] Relationship Specialty Start Date End Date Marco A Byrd MD [address] [place] [facility] [address] PCP - General Family Medicine 11/26/21 [employer] Relationship Specialty Start Date End Date Marco A Byrd MD [address] [place] [facility] [place] [address] PCP - General Family Medicine 11/26/21 [employer] Relationship Specialty Start Date End Date Marco A Byrd MD [address] [place] [facility] [place] [address] PCP - General Family Medicine 11/26/21 [employer] Relationship Specialty Start Date End Date Marco A Byrd MD [address] [place] [facility] [place] [address] PCP - General Family Medicine 11/26/21 Team [...] BE BASED ON THE PRIMARY CLINICAL RECORDS. [employer] provides no warranty or guarantee of the accuracy or completeness of information in this document.
[2024-03-16 14:56] LABS: Amphetamine Screen Urine NEGATIVE (NEGATIVE); Barbiturates Screen Urine NEGATIVE (NEGATIVE); Benzodiazepines Screen Urine NEGATIVE (NEGATIVE); Buprenorphine Screen Urine NEGATIVE (NEGATIVE); Cannabinoid Screen Urine NEGATIVE (NEGATIVE); Cocaine Screen Urine NEGATIVE (NEGATIVE); Methadone Screen Urine NEGATIVE (NEGATIVE); Methamphetamines Screen Urine NEGATIVE (NEGATIVE); Opiate Screen Urine NEGATIVE (NEGATIVE); Oxycodone Screen Urine NEGATIVE (NEGATIVE); Phencyclidine Screen Urine NEGATIVE (NEGATIVE); Tricyclic Antidepressant Urine NEGATIVE (NEGATIVE)
[2024-03-16 15:10] LABS: Estimated Average Glucose 88 mg/dL; Glycohemoglobin A1C 4.7 % (4.5-6.2)
[2024-03-17 06:10] LABS: HBsAg Screen Negative (Negative); HCV Ab Non Reactive (Non Reactive); HIV Ab/p24 Ag Screen Non Reactive (Non Reactive)
[2024-03-17 08:12] LABS: Rubella Antibodies, IgG 1.37 index (Immune >0.99)
[2024-03-17 11:09] LABS: Rapid Plasma Reagin, Quant Non Reactive titer (NonRea<1:1)
== END 2024-03-16 14:18 | disposition home or self-care (01) ==
LOC: LAB 14:19
PROVIDERS: PCP Family Medicine; Visit Provider Obstetrics & Gynecology
DX: Z34.91 Encounter for supervision of normal pregnancy, unspecified, first trimester (principal); Z3A.09 9 weeks gestation of pregnancy; N92.6 Irregular menstruation, unspecified
CPT/HCPCS: 36415; 76817; 80307; 83036; 85025; 86592; 86762; 86803; 86850; 86900; 86901; 87086; 87340; 87389

== ENCOUNTER 2024-04-03 09:43 | Outpatient (OUT) | payer OTHER, SELFPAY ==
--- NOTE | 2024-04-03 09:45 | US_ITS ---
[address] [address] Patient Name: TAWANNA SANTOS MRN: [facility]:[id number] date: 1990 Sex: F Assigned Patient Location: [facility] Current Patient Location: [facility] Accession/Order Number: [id number] Exam Date: 04/03/2024 09:44 Report Date: 04/03/2024 15:12 At the request of: EAGLE MA Procedure: US OB transvaginal EXAMINATION: US OB transvaginal HISTORY: VIABILITY, FOLLOW UP MASS COMPARISON: 03/16/2024 FINDINGS: Transvaginal images Gonzales intrauterine gestation CRL: 6.73 cm, 13 weeks 0 days Gestational sac: Normal morphology Heart rate: 150 cm/m Uterus is normal, anteverted, anteflexed The ovaries are not visualized Cervix: Closed, 5.2 cm Clinical age: 12 weeks 6 days Clinical GILSON: 10/10/2024 Ultrasound age: 30 weeks 0 days Ultrasound GILSON: 10/09/2024 Other: Again demonstrated is soft tissue in the region of the pelvis, this area measures 2.2 x 1.3 x 1.7 cm US/US OB transvaginal IMPRESSION: Soft tissue in the region of the pelvis this could represent physiologic herniation of bowel but is indeterminate Electronically authenticated by: LOUISE MCRAE Date: 04/03/2024 15:12
== END 2024-04-03 09:44 | disposition home or self-care (01) ==
LOC: NOMS 09:43
PROVIDERS: PCP Family Medicine; Visit Provider Obstetrics & Gynecology
DX: R93.89 Abnormal findings on diagnostic imaging of other specified body structures (principal); Z3A.30 30 weeks gestation of pregnancy
CPT/HCPCS: 76817

== ENCOUNTER 2024-04-04 16:31 | Outpatient (OUT) | payer OTHER, SELFPAY ==
[2024-04-04 16:49] LABS: Basophils Absolute Auto 0.1 10^3/uL (0.0-0.1); Basophils Percent Auto 0.6 % (0.2-2.0); Eosinophils Absolute Auto 0.1 10^3/uL (0.0-0.7); Eosinophils Percent Auto 0.6 % (0.9-7.0); Hematocrit 38.1 % (36.0-48.0); Immature Granulocytes Abs Auto 0.01 10^3/uL (0.00-0.03); Immature Granulocytes Pct Auto 0.1 % (0.0-0.5); Lymphocytes Absolute Auto 2.8 10^3/uL (1.2-3.8); Mean Corpuscular HGB Conc 34.1 g/dL (29.9-35.2); Mean Corpuscular Hemoglobin 30.5 pg (26.7-34.0); Mean Corpuscular Volume 89.4 fL (81.0-99.0); Mean Platelet Volume 10.8 fL (9.5-13.5); Monocytes Absolute Auto 0.4 10^3/uL (0.3-0.8); Monocytes Percent Auto 5.2 % (1.7-12.0); Neutrophils Absolute Auto 4.5 10^3/uL (1.4-6.5); Neutrophils Percent Auto 57.5 % (43.0-75.0); Platelet Count 176 10^3/uL (150-450); Red Blood Count 4.26 10^6/uL (4.20-5.40); Red Cell Distribution Width 12.7 % (11.0-15.0); White Blood Count 7.9 10^3/uL (4.0-11.0)
[2024-04-04 16:58] LABS: Estimated Average Glucose 94 mg/dL; Glycohemoglobin A1C 4.9 % (4.5-6.2)
== END 2024-04-04 16:32 | disposition home or self-care (01) ==
LOC: LAB 16:32
PROVIDERS: PCP Family Medicine; Visit Provider Obstetrics & Gynecology
DX: O26.891 Other specified pregnancy related conditions, first trimester (principal); H53.8 Other visual disturbances; R20.0 Anesthesia of skin; Z3A.12 12 weeks gestation of pregnancy; O99.841 Bariatric surgery status complicating pregnancy, first trimester
CPT/HCPCS: 36415; 83036; 85025